=== PATIENT | male | born 1945 | race Hispanic/Latino ===

== ENCOUNTER 2017-11-22 08:07 | Day surgery (SDC) | payer MEDICARE ==
[2017-11-21 08:14] VITALS: BMI 26.4
[2017-11-22] MEDS ORDERED: cefTRIAXone IV 1 gm in Dextros 50 ML IVPB ONE (09:46)
[2017-11-22] MEDS ORDERED: Lidocaine 2% Jelly (Uro-Jet) ONE (09:46)
[2017-11-22] MEDS ORDERED: Midazolam 2 MG/2 ML VIAL ONE (09:52)
[2017-11-22] MEDS ORDERED: Propofol 10 mg/ml Inj (20 ML) ONE ×2 (09:52→10:35)
[2017-11-22] MEDS ORDERED: Iohexol 240 (50 ml) ONE (10:15)
--- NOTE | 2017-11-22 13:52 | RAD ---
PROCEDURE: Intraoperative fluoroscopy HISTORY: URINARY INCONTINENCE/BLADDER NECK CONTRACTION COMPARISON: Not available TECHNIQUE: Intraoperative fluoroscopy was provided for a cystoscopic procedure. Total time of fluoroscopy was 4.6 seconds. FINDINGS: Multiple fluoroscopic spot films are submitted. IMPRESSION: Fluoroscopy provided.
[2017-11-22 15:18] VITALS: BP 132/77; PULSE 96; RESP 15; TEMP 97.6; O2SAT 100
--- NOTE | 2017-11-22 22:11 | OP ---
PROCEDURE DATE: 11/22/2017 PROCEDURE: Cystoscopy, bladder neck incision, insertion of [place] 6-Paraguayan catheter. PREOPERATIVE DIAGNOSES: Urinary incontinence and recurrent urinary tract infections. POSTOPERATIVE DIAGNOSES: Urinary incontinence and recurrent urinary tract infections plus bladder neck contraction and multiple false passages in the prostatic urethra. DESCRIPTION OF PROCEDURE: The patient was placed on the cystoscopy table in the dorsal lithotomy position, prepped and draped in the usual sterile fashion with Betadine solution. Under local and IV sedation, with Dr. Denise approximately 10 mL of 2% Xylocaine jelly were injected intraurethrally, followed by insertion of a #22-Par[place]ayan Storz cystoscope into a phimotic foreskin which was dilated with a curved clamp and followed by insertion of the 22-[place] Storz cystoscope into the urethral meatus, advanced towards the bladder. The anterior urethra was completely normal without stricture formation, foreign bodies or suspicious lesions seen. However, the posterior urethra and prostatic fossa showed multiple false passages indicating most likely prior instrumentation and also most likely what appeared to be a bladder neck contracture and prostatic urethral stricture. A #35 thousandth inch, 150 cm sensor wire was passed into the suspected urethral strictured area, selected from the extensive false passages and this eventually allowed the sensor wire to go into the bladder and coil in the bladder under fluoroscopic control. Next, this area was then opened using the optical urethrotome in the 12 o'clock position to some extent. There was noted to be some increased bleeding at this time and we decided to stop the procedure at this time and a #16 [place] catheter was inserted into the bladder over the sensor wire and the balloon inflated to 10 mL with sterile water. The catheter drained blood-tinged urine well and was thoroughly irrigated with a Joseph syringe without any clots. The patient had actually tolerated the procedure well, with about 20 mL of blood loss and was brought to the recovery area in satisfactory condition. Plan for this patient will be to get a urine culture and sensitivity in the recovery room in about 30 to 40 minutes and then patient can be allowed to be discharged to home without antibiotics at this time. The patient received IV Rocephin during the procedure. The patient will be seen in office followup in about two weeks and will schedule the patient for a eventual removal of the Hawk catheter and a followup cystoscopy. Norman Chiang MD [facility]
== END 2017-11-22 13:05 | disposition home or self-care (01) ==
LOC: C.SDS 08:07
PROVIDERS: ATTEND Urology
DX: N32.0 Bladder-neck obstruction (principal); N39.0 Urinary tract infection, site not specified; R31.9 Hematuria, unspecified; R32 Unspecified urinary incontinence
CPT/HCPCS: 52005; 72HRC; C1769

== ENCOUNTER 2017-11-22 16:48 | Inpatient (IN) | payer MEDICARE, MEDICAID ==
[2017-11-22 16:49] VITALS: BMI 26.4
--- NOTE | 2017-11-22 18:50 | C.PDOC ---
History Of Present Illness 72 y/o male presents to the ED with gross hematuria in his catheter, onset today. [facility] Of note, he had a cystoscopy today done with Dr. Chiang and appears confused. Patient has a pmhx of chronic schizophrenia, heart failure, and kidney disease. PMD: Dr. Hunter - [facility] Time Seen by Provider: 11/22/17 17:16 Chief Complaint (Nursing): Trauma History Per: Patient History/Exam Limitations: clinical condition (schizophrenia) Injury Occurred (Timing): Just Before Arrival Past Medical History Reviewed: Historical Data, Nursing Documentation, Vital Signs Vital Signs: Last Vital Signs Temp 101 F H 11/22/17 20:35 Pulse 100 H 11/22/17 22:45 Resp 20 11/22/17 22:45 BP 100/54 L 11/22/17 22:50 Pulse Ox 100 11/22/17 23:12 - Medical History PMH: Anxiety, Asthma, Benign Prostatic Hyperplasia (bladder problem), Bipolar Disorder, CHF, COPD, Depression, HTN, Hypercholesterolemia, Chronic Kidney Disease (renal insufficiency), Schizophrenia Denies: Diabetes, Hepatitis, Sexually Transmitted Disease Surgical History: Tonsillectomy - [facility] Procedures EXCIS DEBRIDE OF WOUND, INFECT, OR BURN (08/17/14) OCCUPATIONAL THERAPY (08/28/14) PHYSICAL THERAPY NEC (08/28/14) Family History: States: Unknown Family Hx - Social History Hx Tobacco Use: No Hx Alcohol Use: No Hx Substance Use: No - Immunization History Hx Tetanus Toxoid Vaccination: No Hx Influenza Vaccination: No Hx Pneumococcal Vaccination: No Review Of Systems Except As Marked, All Systems Reviewed And Found Negative. Constitutional: Negative for: Fever, Chills Respiratory: Negative for: Shortness of Breath Gastrointestinal: Negative for: Nausea, Vomiting Genitourinary: Positive for: Hematuria Musculoskeletal: Positive for: Other (Fall) Neurological: Positive for: Confusion Physical Exam - Physical Exam Appears: Non-toxic, No Acute Distress Skin: Normal Color, Warm, Dry Head: Atraumatic, Normacephalic Eye(s): bilateral: Normal Inspection, PERRL, EOMI Ear(s): Bilateral: Normal Nose: Normal Oral Mucosa: Moist Tongue: Normal Appearing Lips: Normal Appearing Teeth: Normal Dentition Gingiva: Normal Appearing Throat: Normal Neck: Normal ROM, Supple Chest: Symmetrical Cardiovascular: Rhythm Regular, No Murmur Respiratory: Normal Breath Sounds, No Accessory Muscle Use, Other (No acute respiratory distress) Gastrointestinal/Abdominal: Soft, No Tenderness, No Guarding, Other (Indwelling watts catheter with gross hematuria) Back: Normal Inspection Male Genital: Normal Inspection (indwelling catheter with gross hematuria) Extremity: Bilateral: Atraumatic, Normal ROM (chroinc skin changes consistent with chronic venous stasis with some recent bruising) Neurological/Psych: Oriented x3, Normal Speech Disoriented To: Person Gait: Unable To Assess ED Course And Treatment - Laboratory Results Result Diagrams: 11/22/17 19:09 11/22/17 19:09 O2 Sat by Pulse Oximetry: 100 (RA) Pulse Ox Interpretation: Normal Medical Decision Making Medical Decision Making: Time: 18:21 Initial Plan: --EKG --Pro-BNP --CMP --Troponin I --CBC --PTT --Prothrombin time --Urinalysis Spoke to Андрей, recommends continuous manual irrigation and admission. He will see patient in the hospital tomorrow. Labs reviewed: Troponin is 0.233, WBC 15K, Hemoglobin 14.2, Bicarb 21, LFTs elevated, Bilirubin 6.2 20:03 VBG is being ordered. Patient given fentanyl for pain. VBG demonstrates lactate of 4.3. 21:01 Case discussed w/ Dr. Hunter, patient will be admitted to tele for sepsis, gross hematuria, s/p cystoscopy 21:08 Informed by RN that patient has become hypotensive, blood pressure 80/ 60. Paged manager learning on-call. 21:11 Received call back from Dr. Small, patient is accepted for admission to ICU. Disposition Discussed With : Liborio Hunter Counseled Patient/Family Regarding: Studies Performed, Diagnosis - Disposition Disposition: HOSPITALIZED Disposition Time: 21:01 Condition: SERIOUS - Clinical Impression Clinical Impression: Sepsis, Gross hematuria, S/P cystoscopy Critical Care Time - Critical Care Note Total Time (in mins): 80 Documented critical care: time excludes all time spent performing seperately billable procedures. - Scribe Statement The provider has reviewed the documentation as recorded by the Scribe (Dolores Abbott) Provider Attestation: All medical record entries made by the Scribe were at my direction and personally dictated by me. I have reviewed the chart and agree that the record accurately reflects my personal performance of the history, physical exam, medical decision making, and the department course for this patient. I have also personally directed, reviewed, and agree with the discharge instructions and disposition. Decision To Admit - Pt Status Changed To: Hospital Disposition Of: Inpatient - Admit Certification Admit to Inpatient:: After my assessment, the patient will require hospitalization for at least two midnights. This is because of the severity of symptoms shown, intensity of services needed, and/or the medical risk in this patient being treated as an outpatient. - InPatient: Physician Admission Certification: I certify that this patient requires 2 or more midnights of care for the following reason:: After my assessment, the patient will require hospitalization for at least two midnights. This is because of the severity of symptoms shown, intensity of services needed, and/or the medical risk in this patient being treated as an outpatient. - . Bed Request Type: ICU Admitting Physician: Liborio Hunter Patient Diagnosis: Sepsis, Gross hematuria, S/P cystoscopy
[2017-11-22 19:13] LABS: BASO % 0.2 % (0.0-2.0); EOS % 0.1 % (0.0-4.0); HEMOGLOBIN 14.2 g/dL (12.0-18.0); LYMPH # 0.1 K/uL (1.0-4.3); LYMPH % 0.7 % (20.0-40.0); MEAN CELL VOLUME 90.3 fL (80.0-94.0); MEAN CORPUSCULAR HEMOGLOBIN 30.4 pg (27.0-31.0); MEAN CORPUSCULAR HGB CONC 33.7 g/dL (33.0-37.0); MEAN PLATELET VOLUME 9.6 fL (7.2-11.7); MONO # 0.1 K/uL (0.0-0.8); MONO % 0.5 % (0.0-10.0); NEUT # 14.8 K/uL (1.8-7.0); NEUT % 98.5 % (50.0-75.0); NRBC % 0.2 % (0.0-2.0); RBC 4.67 Mil/uL (4.40-5.90); RED CELL DISTRIBUTION WIDTH 14.1 % (11.5-14.5)
[2017-11-22 19:21] LABS: PLATELET COUNT 85 K/uL (130-400)
[2017-11-22 19:23] LABS: INR 1.7; PROTHROMBIN TIME 18.9 SECONDS (9.7-12.2)
[2017-11-22 19:25] LABS: CALCIUM 8.6 mg/dl (8.6-10.4)
[2017-11-22 19:40] LABS: TROPONIN I 0.233 ng/mL (0.00-0.120)
[2017-11-22] MEDS ORDERED: Sodium Chloride 0.9% 500 ML IV ONE ×2 (19:44→19:45)
[2017-11-22 19:53] LABS: BANDS 23 % (0-2); EOSINOPHIL 1 % (0-4); LYMPHOCYTE 1 % (20-40); METAMYELOCYTE 8 % (0-0); MONOCYTE 2 % (0-10); MYELOCYTE 5 % (0-0); NEUTROPHIL 60 % (50-75); PLATELET ESTIMATE DECREASED (NORMAL); TOTAL CELLS COUNTED 100
[2017-11-22] MEDS ORDERED: Vancomycin 1 gm/NS 200 ml 1 GM/200 ML BAG IVPB STA (20:15)
[2017-11-22] MEDS ORDERED: Cefepime IV 2 gm in Dextrose 2 GM/100 ML BAG IVPB STA (20:15)
[2017-11-22 20:26] LABS: VENOUS BLOOD GAS BASE EXCESS -5.6 mmol/L (0.0-2.0); VENOUS BLOOD GAS PCO2 35 mmHg (40-60); VENOUS BLOOD GAS PO2 19 mm/Hg (30-55); VENOUS BLOOD PH 7.35 (7.32-7.43)
[2017-11-22] MEDS ORDERED: Sodium Chloride 0.9% 1,000 ML IV ONE ×2 (20:39→22:43)
[2017-11-22 21:16] LABS: URINE BACTERIA FEW (<OCC); URINE BILIRUBIN NEGATIVE (NEGATIVE); URINE BLOOD 3+ (NEGATIVE); URINE CLARITY Hazy (Clear); URINE COLOR Red (YELLOW); URINE GLUCOSE (UA) NORMAL (Normal); URINE LEUKOCYTE ESTERASE 1+ Leu/uL (Negative); URINE PROTEIN 2+ mg/dL (NEGATIVE); URINE UROBILINOGEN NORMAL mg/dL (0.2-1.0)
[2017-11-22] MEDS ORDERED: Sodium Chloride 0.9% 1,000 ML ONE (21:41)
--- NOTE | 2017-11-22 23:00 | CP.PCM.CON ---
History of Present Illness - History of Present Illness History of Present Illness: 72 y/o male with h/o Asthma, Benign Prostatic Hyperplasia Bipolar Disorder, CHF , COPD, Depression, HTN, Hypercholesterolemia, Schizophrenia presents to the ED following fall at [facility]. patient had a cystoscopy today done with Dr. Cihang In ER he was given fentanyl for pain,later found to be hypotensive ,febrile with elevated lactic acid,troponin levels and leucocytosis with bandemia patient is confused unable to review of symptoms Past Patient History - Infectious Disease Hx of Infectious Diseases: None - Tetanus Immunizations Tetanus Immunization: Unknown - Past Medical History & Family History Past Medical History?: Yes - Past Social History Smoking Status: Unknown If Ever Smoked - CARDIAC Hx Congestive Heart Failure: Yes Hx Hypercholesterolemia: Yes Hx Hypertension: Yes - PULMONARY Hx Asthma: Yes Hx Chronic Obstructive Pulmonary Disease (COPD): Yes - HEENT Hx HEENT Problems: Yes Hx Cataracts: Yes - RENAL Hx Chronic Kidney Disease: Yes (renal insufficiency) - INTEGUMENTARY Hx Dermatological Problems: No - GASTROINTESTINAL Hx Gastrointestinal Disorders: No - GENITOURINARY/GYNECOLOGICAL Hx Sexually Transmitted Disorders: No - PSYCHIATRIC Hx Anxiety: Yes Hx Bipolar Disorder: Yes Hx Depression: Yes Hx Schizophrenia: Yes Hx Substance Use: No - SURGICAL HISTORY Hx Tonsillectomy: Yes - ANESTHESIA Hx Anesthesia: Yes Hx Anesthesia Reactions: No Hx Malignant Hyperthermia: No Meds Allergies/Adverse Reactions: Allergies Allergy/AdvReac Type Severity Reaction Status Date / Time No Known Allergies Allergy Verified 11/22/17 17:13 - Medications Medications: Current Medications Sodium Chloride (Sodium Chloride 0.9%) 1,000 mls @ 1,000 mls/hr IV .Q1H ONE Stop: 11/22/17 23:42 Last Admin: 11/22/17 22:50 Dose: 1,000 mls/hr Physical Exam - Constitutional Appears: No Acute Distress, Confused - Head Exam Head Exam: ATRAUMATIC, NORMAL INSPECTION, NORMOCEPHALIC - Eye Exam Eye Exam: PERRL - ENT Exam ENT Exam: Mucous Membranes Dry - Neck Exam Neck exam: Positive for: Normal Inspection - Respiratory Exam Respiratory Exam: Clear to Auscultation Bilateral, NORMAL BREATHING PATTERN - Cardiovascular Exam Cardiovascular Exam: REGULAR RHYTHM. absent: JVD - GI/Abdominal Exam GI & Abdominal Exam: Normal Bowel Sounds, Soft. absent: Tenderness - Extremities Exam Extremities exam: Positive for: normal inspection, pedal edema Additional comments: bilateral leg edema with chronic changes - Neurological Exam Neurological exam: Alert - Skin Skin Exam: Dry, Normal Color, Warm Results - Vital Signs Recent Vital Signs: Last Vital Signs Temp 101 F H 11/22/17 20:35 Pulse 113 H 11/22/17 21:53 Resp 18 11/22/17 21:53 BP 105/56 L 11/22/17 21:53 Pulse Ox 97 11/22/17 21:53 - Labs Result Diagrams: 11/22/17 19:09 11/22/17 19:09 Labs: Laboratory Results - last 24 hr 11/22/17 11/22/17 11/22/17 19:09 19:09 19:09 WBC 15.0 H D RBC 4.67 Hgb 14.2 Hct 42.2 MCV 90.3 D MCH 30.4 MCHC 33.7 RDW 14.1 Plt Count 85 L D MPV 9.6 Neut % (Auto) 98.5 H Lymph % (Auto) 0.7 L [place] % (Auto) 0.5 Eos % (Auto) 0.1 Baso % (Auto) 0.2 Neut # (Auto) 14.8 H Lymph # (Auto) 0.1 L [place] # (Auto) 0.1 Eos # (Auto) 0.0 Baso # (Auto) 0.0 Neutrophils % (Manual) 60 Band Neutrophils % 23 H* Lymphocytes % (Manual) 1 L Monocytes % (Manual) 2 Eosinophils % (Manual) 1 Metamyelocytes % 8 H Myelocytes % 5 H Platelet Estimate Decreased L ESR PT 18.9 H INR 1.7 APTT 45 H pO2 VBG pH VBG pCO2 VBG HCO3 VBG Total CO2 VBG O2 Sat (Calc) VBG Base Excess VBG Potassium Glucose Lactate Crit Value Called To Crit Value Called By Crit Value Read Back Blood Gas Notified Time Sodium 140 Potassium 4.1 Chloride 106 Carbon Dioxide 21 L Anion Gap 18 BUN 33 H Creatinine 1.5 Est GFR ( Amer) 56 Est GFR (Non-Af Amer) 46 Random Glucose 52 L Calcium 8.6 Magnesium Total Bilirubin 6.2 H AST 342 H ALT 125 H D Alkaline Phosphatase 86 Troponin I 0.2330 H* C-React Prot High Sens NT-Pro-B Natriuret Pep 3380 H Total Protein 5.9 L Albumin 3.0 L D Globulin 2.9 Albumin/Globulin Ratio 1.0 Procalcitonin Venous Blood Potassium Urine Color Urine Clarity Urine pH Ur Specific [place] Urine Protein Urine Glucose (UA) Urine Ketones Urine Blood Urine Nitrate Urine Bilirubin Urine Urobilinogen Ur Leukocyte Esterase Urine WBC (Auto) Urine RBC (Auto) Urine Bacteria 11/22/17 11/22/17 11/22/17 20:22 20:32 20:32 WBC RBC Hgb Hct MCV MCH MCHC RDW Plt Count MPV Neut % (Auto) Lymph % (Auto) [place] % (Auto) Eos % (Auto) Baso % (Auto) Neut # (Auto) Lymph # (Auto) [place] # (Auto) Eos # (Auto) Baso # (Auto) Neutrophils % (Manual) Band Neutrophils % Lymphocytes % (Manual) Monocytes % (Manual) Eosinophils % (Manual) Metamyelocytes % Myelocytes % Platelet Estimate ESR 2 PT INR APTT pO2 19 L VBG pH 7.35 VBG pCO2 35 L VBG HCO3 18.6 VBG Total CO2 20.4 L VBG O2 Sat (Calc) 40.6 VBG Base Excess -5.6 L VBG Potassium 3.4 L Glucose 54 L Lactate 4.3 H* Crit Value Called To Annabella betts rn Crit Value Called By [place] Crit Value Read Back Y Blood Gas Notified Time 2024 Sodium 141.0 Potassium Chloride 111.0 H Carbon Dioxide Anion Gap BUN Creatinine Est GFR ( Amer) Est GFR (Non-Af Amer) Random Glucose Calcium Magnesium Total Bilirubin AST ALT Alkaline Phosphatase Troponin I C-React Prot High Sens NT-Pro-B Natriuret Pep Total Protein Albumin Globulin Albumin/Globulin Ratio Procalcitonin 137.36 H Venous Blood Potassium 3.4 L Urine Color Urine Clarity Urine pH Ur Specific [place] Urine Protein Urine Glucose (UA) Urine Ketones Urine Blood Urine Nitrate Urine Bilirubin Urine Urobilinogen Ur Leukocyte Esterase Urine WBC (Auto) Urine RBC (Auto) Urine Bacteria 11/22/17 11/22/17 11/22/17 20:32 20:32 20:42 WBC RBC Hgb Hct MCV MCH MCHC RDW Plt Count MPV Neut % (Auto) Lymph % (Auto) [place] % (Auto) Eos % (Auto) Baso % (Auto) Neut # (Auto) Lymph # (Auto) [place] # (Auto) Eos # (Auto) Baso # (Auto) Neutrophils % (Manual) Band Neutrophils % Lymphocytes % (Manual) Monocytes % (Manual) Eosinophils % (Manual) Metamyelocytes % Myelocytes % Platelet Estimate ESR PT INR APTT pO2 VBG pH VBG pCO2 VBG HCO3 VBG Total CO2 VBG O2 Sat (Calc) VBG Base Excess VBG Potassium Glucose Lactate Crit Value Called To Crit Value Called By Crit Value Read Back Blood Gas Notified Time Sodium Potassium Chloride Carbon Dioxide Anion Gap BUN Creatinine Est GFR ( Amer) Est GFR (Non-Af Amer) Random Glucose Calcium Magnesium 1.8 Total Bilirubin AST ALT Alkaline Phosphatase Troponin I C-React Prot High Sens > 15.00 H NT-Pro-B Natriuret Pep Total Protein Albumin Globulin Albumin/Globulin Ratio Procalcitonin Venous Blood Potassium Urine Color Red Urine Clarity Hazy Urine pH 5.0 Ur Specific [place] 1.016 Urine Protein 2+ H Urine Glucose (UA) Normal Urine Ketones Trace Urine Blood 3+ H Urine Nitrate Negative Urine Bilirubin Negative Urine Urobilinogen Normal Ur Leukocyte Esterase 1+ H Urine WBC (Auto) 33 H Urine RBC (Auto) 3819 H Urine Bacteria Few H - Imaging and Cardiology Chest x-ray Status: Image reviewed by me Assessment & Plan - Assessment and Plan (Free Text) Assessment: 1.Sepsis-Eitiology s/p cystoscopy today cultures antibiotics IVF 2.H/o HTN 3.Hematuria s/p cystoscopy today 4.Elevated Troponin ?due to hypotension ?VT BP low ,hematuria-no beta blockers,asa 5.Schizoaffective disorder
[2017-11-22] MEDS ORDERED: Sodium Chloride 0.9% 1,000 ML IV SCH ×2 (23:30→23:45)
[2017-11-22] MEDS ORDERED: Piperacillin/Tazobact 3.375 GM in Sodium Chloride 100 ML IVPB SCH (23:45)
[2017-11-23 00:51] LABS: VENOUS BLOOD GAS BASE EXCESS -10.2 mmol/L (0.0-2.0); VENOUS BLOOD GAS PCO2 33 mmHg (40-60); VENOUS BLOOD GAS PO2 19 mm/Hg (30-55); VENOUS BLOOD PH 7.28 (7.32-7.43)
--- NOTE | 2017-11-23 01:35 | PCM.SEPTIC ---
Sepsis Progress Note - Reassessment Type Reassessment Type: Non-invasive reassessment - Non Invasive Reassessment Were the most recent vital sign reviewed: Yes Vital Sign (Latest): Temp Pulse Resp BP Pulse Ox 101.5 F H 116 H 20 105/42 L 97 11/23/17 00:47 11/23/17 00:47 11/23/17 00:47 11/23/17 00:47 11/22/17 23:44 Cardiovascular: Yes: Regular Rate, Rhythm. No: Chest Non Tender, JVD, Tachycardia Respiratory: Yes: Normal Breath Sounds Capillary Refill: Normal (Less than 2 sec) Pulses: Normal Radial Skin: Normal Color, Warm
--- NOTE | 2017-11-23 02:15 | CT ---
EXAM: CT Head Without Intravenous Contrast CLINICAL HISTORY: 72 years old, male; Signs and symptoms; Altered mental status/memory loss; Confusion or disorientation TECHNIQUE: Axial computed tomography images of the head/brain without intravenous contrast. All CT scans at this facility use one or more dose reduction techniques, viz.: automated exposure control; ma/kV adjustment per patient size (including targeted exams where dose is matched to indication; i.e. head); or iterative reconstruction technique. Coronal and sagittal reformatted images were created and reviewed. COMPARISON: No relevant prior studies available. FINDINGS: Limitations: Motion artifact - mild. Brain: [id number] atrophy. No definite intracranial hemorrhage. No definite mass. Several scattered foci of decreased attenuation within periventricular/subcortical white matter, more pronounced and focal with left frontal region. Grossly preserved james-white matter differentiation. Ventricles: No hydrocephalus. Bones/joints: No acute fracture. Soft tissues: Unremarkable. Sinuses: Near complete opacification/large retention cyst of right maxillary sinus. Moderate mucosal thickening/retention cysts of left maxillary sinus. Scattered [id number] mucosal thickening of ethmoid, left frontal sinuses. Scattered minimal to mild mucosal thickening of right frontal, right sphenoid sinuses. Mastoid air cells: No mastoid effusion. IMPRESSION: 1. Nonspecific white matter changes. Cannot exclude vasogenic edema within left frontal region. Recommend MRI. 2. Sinus disease. 3. Incidental/non-acute findings are described above.
[2017-11-23] MEDS ORDERED: Sodium Chloride 0.9% 500 ML IV ONE (02:52)
[2017-11-23] MEDS ORDERED: Dextrose 50% SYRINGE Inj (50 ml) IV STA ×2 (03:56→18:25)
[2017-11-23] MEDS: Dextrose 50% SYRINGE Inj (50 ml) ONE ×2 (03:59)
[2017-11-23 07:04] LABS: BASO % 0.1 % (0.0-2.0); HEMOGLOBIN 13.3 g/dL (12.0-18.0); LYMPH # 0.2 K/uL (1.0-4.3); LYMPH % 0.5 % (20.0-40.0); MEAN CELL VOLUME 90.5 fL (80.0-94.0); MEAN CORPUSCULAR HEMOGLOBIN 30.3 pg (27.0-31.0); MEAN CORPUSCULAR HGB CONC 33.5 g/dL (33.0-37.0); MEAN PLATELET VOLUME 11.2 fL (7.2-11.7); MONO # 1.5 K/uL (0.0-0.8); MONO % 4.6 % (0.0-10.0); NEUT # 31.5 K/uL (1.8-7.0); NEUT % 94.8 % (50.0-75.0); NRBC % 0.1 % (0.0-2.0); PLATELET COUNT 83 K/uL (130-400); RED CELL DISTRIBUTION WIDTH 14.5 % (11.5-14.5); WHITE BLOOD COUNT 33.2 K/uL (4.8-10.8)
[2017-11-23 07:26] LABS: ALB/GLOB RATIO 0.9 (1.0-2.1); ALBUMIN 2.8 g/dL (3.5-5.0); CALCIUM 7.8 mg/dl (8.6-10.4)
[2017-11-23 07:43] LABS: TROPONIN I 0.316 ng/mL (0.00-0.120)
--- NOTE | 2017-11-23 08:08 | RAD ---
HISTORY: Sepsis Patient COMPARISON: Chest x-ray 09/07/2014 TECHNIQUE: Chest one view . FINDINGS: LUNGS: Mild pulmonary vascular congestion. Stable elevation left hemidiaphragm. Mild bibasilar atelectasis. PLEURA: No pleural effusion is identified. CARDIOVASCULAR: Heart size is within normal limits. OSSEOUS STRUCTURES: Degenerative changes noted of the spine. VISUALIZED UPPER ABDOMEN: Unremarkable. OTHER FINDINGS: None. IMPRESSION: Mild pulmonary vascular congestion. Mild bibasilar atelectasis.
[2017-11-23] MEDS: (Novolin R) Insulin Human Regular 100 units/ml vial SC SCH ×4 (08:40→22:21)
[2017-11-23] MEDS ORDERED: Dextrose 50% SYRINGE Inj (50 ml) IV PRN (08:46)
[2017-11-23] MEDS ORDERED: Vancomycin 1 gm/NS 200 ml 1 GM/200 ML BAG IVPB SCH (09:00)
[2017-11-23 09:22] LABS: BANDS 21 % (0-2); MONOCYTE 5 % (0-10); NEUTROPHIL 74 % (50-75); TOTAL CELLS COUNTED 100
[2017-11-23 09:23] LABS: PLATELET ESTIMATE DECREASED (NORMAL)
[2017-11-23] MEDS ORDERED: Dextrose 5%/0.9% NS 1,000 ML IV SCH (09:30)
[2017-11-23] MEDS: Pantoprazole 40 mg EC Tab PO SCH (09:47)
[2017-11-23] MEDS ORDERED: Enoxaparin 40 mg Syringe SC SCH (10:00)
[2017-11-23] MEDS ORDERED: Vancomycin 1 GM 1 GM/250 ML BAG IVPB SCH (11:00)
--- NOTE | 2017-11-23 11:32 | CP.PCM.CON ---
History of Present Illness - History of Present Illness History of Present Illness: 72 yo male patient with PMHx of Asthma, Benign Prostatic Hyperplasia Bipolar Disorder, CHF, COPD, Depression, HTN, Hypercholesterolemia, Schizophrenia was seen at bedside this AM with attending Dr. Jaimes concerning Left foot 2nd digit traumatic nail avulsion and elongated mycotic toenails x9. Patient was resting comfortably in bed woth CPAP, unable to communicate. Podiatry plan to revisit with nail nipper for toenail debridement. Past Patient History - Infectious Disease Hx of Infectious Diseases: None - Tetanus Immunizations Tetanus Immunization: Unknown - Past Medical History & Family History Past Medical History?: Yes - Past Social History Smoking Status: Unknown If Ever Smoked - CARDIAC Hx Congestive Heart Failure: Yes Hx Hypercholesterolemia: Yes Hx Hypertension: Yes - PULMONARY Hx Asthma: Yes Hx Chronic Obstructive Pulmonary Disease (COPD): Yes - HEENT Hx HEENT Problems: Yes Hx Cataracts: Yes - RENAL Hx Chronic Kidney Disease: Yes (renal insufficiency) - INTEGUMENTARY Hx Dermatological Problems: No - GASTROINTESTINAL Hx Gastrointestinal Disorders: No - GENITOURINARY/GYNECOLOGICAL Hx Sexually Transmitted Disorders: No - PSYCHIATRIC Hx Anxiety: Yes Hx Bipolar Disorder: Yes Hx Depression: Yes Hx Schizophrenia: Yes Hx Substance Use: No - SURGICAL HISTORY Hx Tonsillectomy: Yes - ANESTHESIA Hx Anesthesia: Yes Hx Anesthesia Reactions: No Hx Malignant Hyperthermia: No Meds Allergies/Adverse Reactions: Allergies Allergy/AdvReac Type Severity Reaction Status Date / Time No Known Allergies Allergy Verified 11/22/17 17:13 - Medications Medications: Current Medications Acetaminophen (Tylenol 325mg Tab) 650 mg PO Q6 PRN PRN Reason: Fever >100.4 F Last Admin: 11/23/17 00:18 Dose: 650 mg Dextrose (Dextrose 50% Inj) 50 ml IV ACHS PRN PRN Reason: Hypoglycemia Last Admin: 11/23/17 08:55 Dose: 50 ml Vancomycin HCl 1.25 gm/ Sodium (Chloride) 250 mls @ 166.667 mls/hr IVPB Q24H GHANSHYAM PRN Reason: Protocol Last Admin: 11/23/17 09:35 Dose: 166.667 mls/hr Dextrose/Sodium Chloride (Dextrose 5%/0.9% Ns 1000 Ml) 1,000 mls @ 100 mls/hr IV .Q10H GHANSHYAM Last Admin: 11/23/17 09:47 Dose: 100 mls/hr Meropenem 500 mg/ Sodium (Chloride) 100 mls @ 100 mls/hr IVPB Q12H GHANSHYAM PRN Reason: Protocol Insulin Human Regular (Novolin R) 0 unit SC ACHS GHANSHYAM PRN Reason: Protocol Last Admin: 11/23/17 08:40 Dose: Not Given Lorazepam (Ativan) 1 mg IVP Q6H PRN PRN Reason: Anxiety Mirtazapine (Remeron) 15 mg PO QPM [facility] Pantoprazole Sodium (Protonix Ec Tab) 40 mg PO DAILY [facility] Last Admin: 11/23/17 09:47 Dose: 40 mg Tamsulosin HCl (Flomax) 0.8 mg PO DAILY [facility] Last Admin: 11/23/17 09:47 Dose: 0.8 mg Valproate Sodium (Depakene Cap) 250 mg PO BID [facility] Last Admin: 11/23/17 09:47 Dose: 250 mg Physical Exam - Constitutional Appears: Well, Non-toxic, No Acute Distress - Head Exam Head Exam: ATRAUMATIC - Extremities Exam Additional comments: Left lower extremity exam DERM: Open wound noted to Left foot 2nd digit secondary to traumatic nail avulsion. No active bleeding noted. No pus noted. No drainage noted. No sign of acute infection is noted. No mal-odor noted. No PTB. Nail bed wound measures 1cm x 1xm 0.4cm with granular base VASC: Palpable DP and PT at 2/4, [employer] ATTENDANT less than 3 seconds to all digits - Neurological Exam Neurological exam: Alert, Oriented x3 - Psychiatric Exam Psychiatric exam: Normal Affect, Normal Mood - Skin Skin Exam: Normal Color, Warm Results - Vital Signs Recent Vital Signs: Last Vital Signs Temp 97.5 F L 11/23/17 08:00 Pulse 85 11/23/17 11:00 Resp 19 11/23/17 11:00 BP 126/87 11/23/17 10:30 Pulse Ox 98 11/23/17 11:00 - Labs Result Diagrams: 11/23/17 07:01 11/23/17 07:01 Labs: Laboratory Results - last 24 hr 11/22/17 11/22/17 11/22/17 00:45 19:09 19:09 WBC 15.0 H D RBC 4.67 Hgb 14.2 Hct 42.2 MCV 90.3 D MCH 30.4 MCHC 33.7 RDW 14.1 Plt Count 85 L D MPV 9.6 Neut % (Auto) 98.5 H Lymph % (Auto) 0.7 L Bailey % (Auto) 0.5 Eos % (Auto) 0.1 Baso % (Auto) 0.2 Neut # (Auto) 14.8 H Lymph # (Auto) 0.1 L Bailey # (Auto) 0.1 Eos # (Auto) 0.0 Baso # (Auto) 0.0 Neutrophils % (Manual) 60 Band Neutrophils % 23 H* Lymphocytes % (Manual) 1 L Monocytes % (Manual) 2 Eosinophils % (Manual) 1 Metamyelocytes % 8 H Myelocytes % 5 H Platelet Estimate Decreased L RBC Morphology ESR PT 18.9 H INR 1.7 APTT 45 H pO2 19 L VBG pH 7.28 L VBG pCO2 33 L VBG HCO3 14.9 VBG Total CO2 16.5 L VBG O2 Sat (Calc) 33.7 L VBG Base Excess -10.2 L VBG Potassium 3.1 L Sodium 143.0 Chloride 115.0 H Glucose 49 L Lactate 3.7 H Crit Value Called To Crit Value Called By Crit Value Read Back Blood Gas Notified Time Potassium Carbon Dioxide Anion Gap BUN Creatinine Est GFR ( Amer) Est GFR (Non-Af Amer) POC Glucose (mg/dL) Random Glucose Lactic Acid Calcium Phosphorus Magnesium Total Bilirubin AST ALT Alkaline Phosphatase Troponin I C-React Prot High Sens NT-Pro-B Natriuret Pep Total Protein Albumin Globulin Albumin/Globulin Ratio Procalcitonin Venous Blood Potassium 3.1 L Urine Color Urine Clarity Urine pH Ur Specific [place] Urine Protein Urine Glucose (UA) Urine Ketones Urine Blood Urine Nitrate Urine Bilirubin Urine Urobilinogen Ur Leukocyte Esterase Urine WBC (Auto) Urine RBC (Auto) Urine Bacteria 11/22/17 11/22/17 11/22/17 19:09 20:22 20:32 WBC RBC Hgb Hct MCV MCH MCHC RDW Plt Count MPV Neut % (Auto) Lymph % (Auto) Bailey % (Auto) Eos % (Auto) Baso % (Auto) Neut # (Auto) Lymph # (Auto) Bailey # (Auto) Eos # (Auto) Baso # (Auto) Neutrophils % (Manual) Band Neutrophils % Lymphocytes % (Manual) Monocytes % (Manual) Eosinophils % (Manual) Metamyelocytes % Myelocytes % Platelet Estimate RBC Morphology ESR 2 PT INR APTT pO2 19 L VBG pH 7.35 VBG pCO2 35 L VBG HCO3 18.6 VBG Total CO2 20.4 L VBG O2 Sat (Calc) 40.6 VBG Base Excess -5.6 L VBG Potassium 3.4 L Sodium 140 141.0 Chloride 106 111.0 H Glucose 54 L Lactate 4.3 H* Crit Value Called To Annabella betts rn Crit Value Called By Lendl Crit Value Read Back Y Blood Gas Notified Time 2024 Potassium 4.1 Carbon Dioxide 21 L Anion Gap 18 BUN 33 H Creatinine 1.5 Est GFR ( Amer) 56 Est GFR (Non-Af Amer) 46 POC Glucose (mg/dL) Random Glucose 52 L Lactic Acid Calcium 8.6 Phosphorus Magnesium Total Bilirubin 6.2 H AST 342 H ALT 125 H D Alkaline Phosphatase 86 Troponin I 0.2330 H* C-React Prot High Sens NT-Pro-B Natriuret Pep 3380 H Total Protein 5.9 L Albumin 3.0 L D Globulin 2.9 Albumin/Globulin Ratio 1.0 Procalcitonin Venous Blood Potassium 3.4 L Urine Color Urine Clarity Urine pH Ur Specific [place] Urine Protein Urine Glucose (UA) Urine Ketones Urine Blood Urine Nitrate Urine Bilirubin Urine Urobilinogen Ur Leukocyte Esterase Urine WBC (Auto) Urine RBC (Auto) Urine Bacteria 11/22/17 11/22/17 11/22/17 20:32 20:32 20:32 WBC RBC Hgb Hct MCV MCH MCHC RDW Plt Count MPV Neut % (Auto) Lymph % (Auto) Bailey % (Auto) Eos % (Auto) Baso % (Auto) Neut # (Auto) Lymph # (Auto) Bailey # (Auto) Eos # (Auto) Baso # (Auto) Neutrophils % (Manual) Band Neutrophils % Lymphocytes % (Manual) Monocytes % (Manual) Eosinophils % (Manual) Metamyelocytes % Myelocytes % Platelet Estimate RBC Morphology ESR PT INR APTT pO2 VBG pH VBG pCO2 VBG HCO3 VBG Total CO2 VBG O2 Sat (Calc) VBG Base Excess VBG Potassium Sodium Chloride Glucose Lactate Crit Value Called To Crit Value Called By Crit Value Read Back Blood Gas Notified Time Potassium Carbon Dioxide Anion Gap BUN Creatinine Est GFR ( Amer) Est GFR (Non-Af Amer) POC Glucose (mg/dL) Random Glucose Lactic Acid Calcium Phosphorus Magnesium 1.8 Total Bilirubin AST ALT Alkaline Phosphatase Troponin I C-React Prot High Sens > 15.00 H NT-Pro-B Natriuret Pep Total Protein Albumin Globulin Albumin/Globulin Ratio Procalcitonin 137.36 H Venous Blood Potassium Urine Color Urine Clarity Urine pH Ur Specific [place] Urine Protein Urine Glucose (UA) Urine Ketones Urine Blood Urine Nitrate Urine Bilirubin Urine Urobilinogen Ur Leukocyte Esterase Urine WBC (Auto) Urine RBC (Auto) Urine Bacteria 11/22/17 11/23/17 11/23/17 20:42 03:54 04:16 WBC RBC Hgb Hct MCV MCH MCHC RDW Plt Count MPV Neut % (Auto) Lymph % (Auto) Bailey % (Auto) Eos % (Auto) Baso % (Auto) Neut # (Auto) Lymph # (Auto) Bailey # (Auto) Eos # (Auto) Baso # (Auto) Neutrophils % (Manual) Band Neutrophils % Lymphocytes % (Manual) Monocytes % (Manual) Eosinophils % (Manual) Metamyelocytes % Myelocytes % Platelet Estimate RBC Morphology ESR PT INR APTT pO2 VBG pH VBG pCO2 VBG HCO3 VBG Total CO2 VBG O2 Sat (Calc) VBG Base Excess VBG Potassium Sodium Chloride Glucose Lactate Crit Value Called To Crit Value Called By Crit Value Read Back Blood Gas Notified Time Potassium Carbon Dioxide Anion Gap BUN Creatinine Est GFR ( Amer) Est GFR (Non-Af Amer) POC Glucose (mg/dL) 49 L 108 Random Glucose Lactic Acid Calcium Phosphorus Magnesium Total Bilirubin AST ALT Alkaline Phosphatase Troponin I C-React Prot High Sens NT-Pro-B Natriuret Pep Total Protein Albumin Globulin Albumin/Globulin Ratio Procalcitonin Venous Blood Potassium Urine Color Red Urine Clarity Hazy Urine pH 5.0 Ur Specific [place] 1.016 Urine Protein 2+ H Urine Glucose (UA) Normal Urine Ketones Trace Urine Blood 3+ H Urine Nitrate Negative Urine Bilirubin Negative Urine Urobilinogen Normal Ur Leukocyte Esterase 1+ H Urine WBC (Auto) 33 H Urine RBC (Auto) 3819 H Urine Bacteria Few H 11/23/17 11/23/17 11/23/17 05:48 07:01 07:01 WBC 33.2 H D RBC 4.40 Hgb 13.3 Hct 39.8 MCV 90.5 MCH 30.3 MCHC 33.5 RDW 14.5 Plt Count 83 L MPV 11.2 Neut % (Auto) 94.8 H Lymph % (Auto) 0.5 L Bailey % (Auto) 4.6 Eos % (Auto) 0.0 Baso % (Auto) 0.1 Neut # (Auto) 31.5 H Lymph # (Auto) 0.2 L Bailey # (Auto) 1.5 H Eos # (Auto) 0.0 Baso # (Auto) 0.0 Neutrophils % (Manual) 74 Band Neutrophils % 21 H* Lymphocytes % (Manual) TEST NOT PERFORMED Monocytes % (Manual) 5 Eosinophils % (Manual) Metamyelocytes % Myelocytes % Platelet Estimate Decreased L RBC Morphology Normal ESR PT INR APTT pO2 VBG pH VBG pCO2 VBG HCO3 VBG Total CO2 VBG O2 Sat (Calc) VBG Base Excess VBG Potassium Sodium 142 Chloride 111 H Glucose Lactate Crit Value Called To Crit Value Called By Crit Value Read Back Blood Gas Notified Time Potassium 4.0 Carbon Dioxide 16 L Anion Gap 18 BUN 37 H Creatinine 1.8 H Est GFR ( Amer) 45 Est GFR (Non-Af Amer) 37 POC Glucose (mg/dL) 85 Random Glucose 62 L Lactic Acid Calcium 7.8 L Phosphorus 2.8 Magnesium 1.6 Total Bilirubin 2.2 H AST 401 H ALT 134 H Alkaline Phosphatase 65 Troponin I 0.3160 H* C-React Prot High Sens NT-Pro-B Natriuret Pep Total Protein 5.8 L Albumin 2.8 L Globulin 3.1 Albumin/Globulin Ratio 0.9 L Procalcitonin Venous Blood Potassium Urine Color Urine Clarity Urine pH Ur Specific [place] Urine Protein Urine Glucose (UA) Urine Ketones Urine Blood Urine Nitrate Urine Bilirubin Urine Urobilinogen Ur Leukocyte Esterase Urine WBC (Auto) Urine RBC (Auto) Urine Bacteria 11/23/17 11/23/17 11/23/17 07:01 08:42 08:44 WBC RBC Hgb Hct MCV MCH MCHC RDW Plt Count MPV Neut % (Auto) Lymph % (Auto) Bailey % (Auto) Eos % (Auto) Baso % (Auto) Neut # (Auto) Lymph # (Auto) Bailey # (Auto) Eos # (Auto) Baso # (Auto) Neutrophils % (Manual) Band Neutrophils % Lymphocytes % (Manual) Monocytes % (Manual) Eosinophils % (Manual) Metamyelocytes % Myelocytes % Platelet Estimate RBC Morphology ESR PT INR APTT pO2 VBG pH VBG pCO2 VBG HCO3 VBG Total CO2 VBG O2 Sat (Calc) VBG Base Excess VBG Potassium Sodium Chloride Glucose Lactate Crit Value Called To Crit Value Called By Crit Value Read Back Blood Gas Notified Time Potassium Carbon Dioxide Anion Gap BUN Creatinine Est GFR ( Amer) Est GFR (Non-Af Amer) POC Glucose (mg/dL) 58 L 56 L Random Glucose Lactic Acid 5.0 H* Calcium Phosphorus Magnesium Total Bilirubin AST ALT Alkaline Phosphatase Troponin I C-React Prot High Sens NT-Pro-B Natriuret Pep Total Protein Albumin Globulin Albumin/Globulin Ratio Procalcitonin Venous Blood Potassium Urine Color Urine Clarity Urine pH Ur Specific [place] Urine Protein Urine Glucose (UA) Urine Ketones Urine Blood Urine Nitrate Urine Bilirubin Urine Urobilinogen Ur Leukocyte Esterase Urine WBC (Auto) Urine RBC (Auto) Urine Bacteria 11/23/17 09:13 WBC RBC Hgb Hct MCV MCH MCHC RDW Plt Count MPV Neut % (Auto) Lymph % (Auto) Bailey % (Auto) Eos % (Auto) Baso % (Auto) Neut # (Auto) Lymph # (Auto) Bailey # (Auto) Eos # (Auto) Baso # (Auto) Neutrophils % (Manual) Band Neutrophils % Lymphocytes % (Manual) Monocytes % (Manual) Eosinophils % (Manual) Metamyelocytes % Myelocytes % Platelet Estimate RBC Morphology ESR PT INR APTT pO2 VBG pH VBG pCO2 VBG HCO3 VBG Total CO2 VBG O2 Sat (Calc) VBG Base Excess VBG Potassium Sodium Chloride Glucose Lactate Crit Value Called To Crit Value Called By Crit Value Read Back Blood Gas Notified Time Potassium Carbon Dioxide Anion Gap BUN Creatinine Est GFR ( Amer) Est GFR (Non-Af Amer) POC Glucose (mg/dL) 136 H Random Glucose Lactic Acid Calcium Phosphorus Magnesium Total Bilirubin AST ALT Alkaline Phosphatase Troponin I C-React Prot High Sens NT-Pro-B Natriuret Pep Total Protein Albumin Globulin Albumin/Globulin Ratio Procalcitonin Venous Blood Potassium Urine Color Urine Clarity Urine pH Ur Specific [place] Urine Protein Urine Glucose (UA) Urine Ketones Urine Blood Urine Nitrate Urine Bilirubin Urine Urobilinogen Ur Leukocyte Esterase Urine WBC (Auto) Urine RBC (Auto) Urine Bacteria Assessment & Plan - Assessment and Plan (Free Text) Assessment: 72 yo male patient presenting with Left foot 2nd digit traumatic nail avulsion and mycotic toenails x9 Plan: Patient was seen, evaluated and treated with all questions and concerns addressed labs and vitals reviewed Left foot dressed with Betadine DSD Bactroban ointment ordered No plan for surgical intervention of the wound Podiatry will continue to follow in-house Podiatry will revisit with pierre perez
--- NOTE | 2017-11-23 11:39 | CP.PCM.CON ---
History of Present Illness - History of Present Illness History of Present Illness: INFECTIOUS DISEASE CONSULT; HPI: 72 y/o male with h/o Asthma, Benign Prostatic Hyperplasia Bipolar Disorder, CHF , COPD, Depression, HTN, Hypercholesterolemia, Schizophrenia presents to the ED following [facility]. patient had a cystoscopy 11/22/[address] Chiang In ER he was given fentanyl for pain,later found to be hypotensive ,febrile with elevated lactic acid,troponin levels and leucocytosis with bandemia. PT ALSO HAVING HEMATURIA S/P CYSTOSCOPY. INFECTIOUS DISEASE CONSULT REQUESTED BY PMD FOR SEPSIS/HYPOTENSION. EVENTS OF HOSPITAL COURSE NOTED. URINE CUTURE TODAY REPORTED +VE ESBL+VE E.COLI. PT PRESENTLY STARTED ON BROAD SPECTRUM ABX. Patient is confused unable to give review of symptoms. PMH: Anxiety, Asthma, Benign Prostatic Hyperplasia (bladder problem), Bipolar Disorder, CHF, COPD, Depression, HTN, Hypercholesterolemia, Chronic Kidney Disease (renal insufficiency), Schizophrenia Denies: Diabetes, Hepatitis, Sexually Transmitted Disease Surgical History: Tonsillectomy - [facility] Procedures EXCIS DEBRIDE OF WOUND, INFECT, OR BURN (08/17/14) OCCUPATIONAL THERAPY (08/28/14) PHYSICAL THERAPY NEC (08/28/14) Family History: States: Unknown Family Hx - Social History Hx Tobacco Use: No Hx Alcohol Use: No Hx Substance Use: No - Immunization History Hx Tetanus Toxoid Vaccination: No Hx Influenza Vaccination: No Hx Pneumococcal Vaccination: No ALLERGY: NKA. MEDS: REVIEWED. Past Patient History - Infectious Disease Hx of Infectious Diseases: None - Tetanus Immunizations Tetanus Immunization: Unknown - Past Medical History & Family History Past Medical History?: Yes - Past Social History Smoking Status: Unknown If Ever Smoked - CARDIAC Hx Congestive Heart Failure: Yes Hx Hypercholesterolemia: Yes Hx Hypertension: Yes - PULMONARY Hx Asthma: Yes Hx Chronic Obstructive Pulmonary Disease (COPD): Yes - HEENT Hx HEENT Problems: Yes Hx Cataracts: Yes - RENAL Hx Chronic Kidney Disease: Yes (renal insufficiency) - INTEGUMENTARY Hx Dermatological Problems: No - GASTROINTESTINAL Hx Gastrointestinal Disorders: No - GENITOURINARY/GYNECOLOGICAL Hx Sexually Transmitted Disorders: No - PSYCHIATRIC Hx Anxiety: Yes Hx Bipolar Disorder: Yes Hx Depression: Yes Hx Schizophrenia: Yes Hx Substance Use: No - SURGICAL HISTORY Hx Tonsillectomy: Yes - ANESTHESIA Hx Anesthesia: Yes Hx Anesthesia Reactions: No Hx Malignant Hyperthermia: No Meds Allergies/Adverse Reactions: Allergies Allergy/AdvReac Type Severity Reaction Status Date / Time No Known Allergies Allergy Verified 11/22/17 17:13 - Medications Medications: Current Medications Acetaminophen (Tylenol 325mg Tab) 650 mg PO Q6 PRN PRN Reason: Fever >100.4 F Last Admin: 11/23/17 00:18 Dose: 650 mg Dextrose (Dextrose 50% Inj) 50 ml IV ACHS PRN PRN Reason: Hypoglycemia Last Admin: 11/23/17 08:55 Dose: 50 ml Vancomycin HCl 1.25 gm/ Sodium (Chloride) 250 mls @ 166.667 mls/hr IVPB Q24H [facility] PRN Reason: Protocol Last Admin: 11/23/17 09:35 Dose: 166.667 mls/hr Dextrose/Sodium Chloride (Dextrose 5%/0.9% Ns 1000 Ml) 1,000 mls @ 100 mls/hr IV .Q10H [facility] Last Admin: 11/23/17 09:47 Dose: 100 mls/hr Meropenem 500 mg/ Sodium (Chloride) 100 mls @ 100 mls/hr IVPB Q12H [facility] PRN Reason: Protocol Insulin Human Regular (Novolin R) 0 unit SC ACHS [facility]AN[facility]YAM PRN Reason: Protocol Last Admin: 11/23/17 08:40 Dose: Not Given Lorazepam (Ativan) 1 mg IVP Q6H PRN PRN Reason: Anxiety Mirtazapine (Remeron) 15 mg PO QPM [facility] Pantoprazole Sodium (Protonix Ec Tab) 40 mg PO DAILY [facility] Last Admin: 11/23/17 09:47 Dose: 40 mg Tamsulosin HCl (Flomax) 0.8 mg PO DAILY [facility] Last Admin: 11/23/17 09:47 Dose: 0.8 mg Valproate Sodium (Depakene Cap) 250 mg PO BID [facility] Last Admin: 11/23/17 09:47 Dose: 250 mg Physical Exam - Constitutional Appears: No Acute Distress - Head Exam Head Exam: NORMAL INSPECTION - Eye Exam Eye Exam: PERRL Additional comments: RT EYE CLOSE. - ENT Exam ENT Exam: Mucous Membranes Moist, Normal Oropharynx - Neck Exam Neck exam: Positive for: Normal Inspection - Respiratory Exam Respiratory Exam: Clear to Auscultation Bilateral, NORMAL BREATHING PATTERN - Cardiovascular Exam Cardiovascular Exam: REGULAR RHYTHM, +S1, +S2 - GI/Abdominal Exam GI & Abdominal Exam: Normal Bowel Sounds, Soft, Tenderness (SUPRAPUBIC . +VE FOLYS) - Extremities Exam Extremities exam: Positive for: pedal edema, pedal pulses present (TRAUMATIC AVULSION OF LT. 2ND TOE NAIL. CHRONIC STASIS DERMATITIS CHANGES B/L LE.). Negative for: calf tenderness - Neurological Exam Neurological exam: Altered - Skin Skin Exam: Normal Color, Warm Results - Vital Signs Recent Vital Signs: Last Vital Signs Temp 97.5 F L 11/23/17 08:00 Pulse 85 11/23/17 11:00 Resp 19 11/23/17 11:00 BP 126/87 11/23/17 10:30 Pulse Ox 98 11/23/17 11:00 - Labs Result Diagrams: 11/23/17 07:01 11/23/17 07:01 Labs: Laboratory Results - last 24 hr 11/22/17 11/22/17 11/22/17 00:45 19:09 19:09 WBC 15.0 H D RBC 4.67 Hgb 14.2 Hct 42.2 MCV 90.3 D MCH 30.4 MCHC 33.7 RDW 14.1 Plt Count 85 L D MPV 9.6 Neut % (Auto) 98.5 H Lymph % (Auto) 0.7 L [place] % (Auto) 0.5 Eos % (Auto) 0.1 Baso % (Auto) 0.2 Neut # (Auto) 14.8 H Lymph # (Auto) 0.1 L [place] # (Auto) 0.1 Eos # (Auto) 0.0 Baso # (Auto) 0.0 Neutrophils % (Manual) 60 Band Neutrophils % 23 H* Lymphocytes % (Manual) 1 L Monocytes % (Manual) 2 Eosinophils % (Manual) 1 Metamyelocytes % 8 H Myelocytes % 5 H Platelet Estimate Decreased L RBC Morphology ESR PT 18.9 H INR 1.7 APTT 45 H pO2 19 L VBG pH 7.28 L VBG pCO2 33 L VBG HCO3 14.9 VBG Total CO2 16.5 L VBG O2 Sat (Calc) 33.7 L VBG Base Excess -10.2 L VBG Potassium 3.1 L Sodium 143.0 Chloride 115.0 H Glucose 49 L Lactate 3.7 H Crit Value Called To Crit Value Called By Crit Value Read Back Blood Gas Notified Time Potassium Carbon Dioxide Anion Gap BUN Creatinine Est GFR ( Amer) Est GFR (Non-Af Amer) POC Glucose (mg/dL) Random Glucose Lactic Acid Calcium Phosphorus Magnesium Total Bilirubin AST ALT Alkaline Phosphatase Troponin I C-React Prot High Sens NT-Pro-B Natriuret Pep Total Protein Albumin Globulin Albumin/Globulin Ratio Procalcitonin Venous Blood Potassium 3.1 L Urine Color Urine Clarity Urine pH Ur Specific [place] Urine Protein Urine Glucose (UA) Urine Ketones Urine Blood Urine Nitrate Urine Bilirubin Urine Urobilinogen Ur Leukocyte Esterase Urine WBC (Auto) Urine RBC (Auto) Urine Bacteria 11/22/17 11/22/17 11/22/17 19:09 20:22 20:32 WBC RBC Hgb Hct MCV MCH MCHC RDW Plt Count MPV Neut % (Auto) Lymph % (Auto) [place] % (Auto) Eos % (Auto) Baso % (Auto) Neut # (Auto) Lymph # (Auto) [place] # (Auto) Eos # (Auto) Baso # (Auto) Neutrophils % (Manual) Band Neutrophils % Lymphocytes % (Manual) Monocytes % (Manual) Eosinophils % (Manual) Metamyelocytes % Myelocytes % Platelet Estimate RBC Morphology ESR 2 PT INR APTT pO2 19 L VBG pH 7.35 VBG pCO2 35 L VBG HCO3 18.6 VBG Total CO2 20.4 L VBG O2 Sat (Calc) 40.6 VBG Base Excess -5.6 L VBG Potassium 3.4 L Sodium 140 141.0 Chloride 106 111.0 H Glucose 54 L Lactate 4.3 H* Crit Value Called To Annabella betts rn Crit Value Called By [place] Crit Value Read Back Y Blood Gas Notified Time 2024 Potassium 4.1 Carbon Dioxide 21 L Anion Gap 18 BUN 33 H Creatinine 1.5 Est GFR ( Amer) 56 Est GFR (Non-Af Amer) 46 POC Glucose (mg/dL) Random Glucose 52 L Lactic Acid Calcium 8.6 Phosphorus Magnesium Total Bilirubin 6.2 H AST 342 H ALT 125 H D Alkaline Phosphatase 86 Troponin I 0.2330 H* C-React Prot High Sens NT-Pro-B Natriuret Pep 3380 H Total Protein 5.9 L Albumin 3.0 L D Globulin 2.9 Albumin/Globulin Ratio 1.0 Procalcitonin Venous Blood Potassium 3.4 L Urine Color Urine Clarity Urine pH Ur Specific [place] Urine Protein Urine Glucose (UA) Urine Ketones Urine Blood Urine Nitrate Urine Bilirubin Urine Urobilinogen Ur Leukocyte Esterase Urine WBC (Auto) Urine RBC (Auto) Urine Bacteria 11/22/17 11/22/17 11/22/17 20:32 20:32 20:32 WBC RBC Hgb Hct MCV MCH MCHC RDW Plt Count MPV Neut % (Auto) Lymph % (Auto) [place] % (Auto) Eos % (Auto) Baso % (Auto) Neut # (Auto) Lymph # (Auto) [place] # (Auto) Eos # (Auto) Baso # (Auto) Neutrophils % (Manual) Band Neutrophils % Lymphocytes % (Manual) Monocytes % (Manual) Eosinophils % (Manual) Metamyelocytes % Myelocytes % Platelet Estimate RBC Morphology ESR PT INR APTT pO2 VBG pH VBG pCO2 VBG HCO3 VBG Total CO2 VBG O2 Sat (Calc) VBG Base Excess VBG Potassium Sodium Chloride Glucose Lactate Crit Value Called To Crit Value Called By Crit Value Read Back Blood Gas Notified Time Potassium Carbon Dioxide Anion Gap BUN Creatinine Est GFR ( Amer) Est GFR (Non-Af Amer) POC Glucose (mg/dL) Random Glucose Lactic Acid Calcium Phosphorus Magnesium 1.8 Total Bilirubin AST ALT Alkaline Phosphatase Troponin I C-React Prot High Sens > 15.00 H NT-Pro-B Natriuret Pep Total Protein Albumin Globulin Albumin/Globulin Ratio Procalcitonin 137.36 H Venous Blood Potassium Urine Color Urine Clarity Urine pH Ur Specific [place] Urine Protein Urine Glucose (UA) Urine Ketones Urine Blood Urine Nitrate Urine Bilirubin Urine Urobilinogen Ur Leukocyte Esterase Urine WBC (Auto) Urine RBC (Auto) Urine Bacteria 11/22/17 11/23/17 11/23/17 20:42 03:54 04:16 WBC RBC Hgb Hct MCV MCH MCHC RDW Plt Count MPV Neut % (Auto) Lymph % (Auto) [place] % (Auto) Eos % (Auto) Baso % (Auto) Neut # (Auto) Lymph # (Auto) [place] # (Auto) Eos # (Auto) Baso # (Auto) Neutrophils % (Manual) Band Neutrophils % Lymphocytes % (Manual) Monocytes % (Manual) Eosinophils % (Manual) Metamyelocytes % Myelocytes % Platelet Estimate RBC Morphology ESR PT INR APTT pO2 VBG pH VBG pCO2 VBG HCO3 VBG Total CO2 VBG O2 Sat (Calc) VBG Base Excess VBG Potassium Sodium Chloride Glucose Lactate Crit Value Called To Crit Value Called By Crit Value Read Back Blood Gas Notified Time Potassium Carbon Dioxide Anion Gap BUN Creatinine Est GFR ( Amer) Est GFR (Non-Af Amer) POC Glucose (mg/dL) 49 L 108 Random Glucose Lactic Acid Calcium Phosphorus Magnesium Total Bilirubin AST ALT Alkaline Phosphatase Troponin I C-React Prot High Sens NT-Pro-B Natriuret Pep Total Protein Albumin Globulin Albumin/Globulin Ratio Procalcitonin Venous Blood Potassium Urine Color Red Urine Clarity Hazy Urine pH 5.0 Ur Specific [place] 1.016 Urine Protein 2+ H Urine Glucose (UA) Normal Urine Ketones Trace Urine Blood 3+ H Urine Nitrate Negative Urine Bilirubin Negative Urine Urobilinogen Normal Ur Leukocyte Esterase 1+ H Urine WBC (Auto) 33 H Urine RBC (Auto) 3819 H Urine Bacteria Few H 11/23/17 11/23/17 11/23/17 05:48 07:01 07:01 WBC 33.2 H D RBC 4.40 Hgb 13.3 Hct 39.8 MCV 90.5 MCH 30.3 MCHC 33.5 RDW 14.5 Plt Count 83 L MPV 11.2 Neut % (Auto) 94.8 H Lymph % (Auto) 0.5 L [place] % (Auto) 4.6 Eos % (Auto) 0.0 Baso % (Auto) 0.1 Neut # (Auto) 31.5 H Lymph # (Auto) 0.2 L [place] # (Auto) 1.5 H Eos # (Auto) 0.0 Baso # (Auto) 0.0 Neutrophils % (Manual) 74 Band Neutrophils % 21 H* Lymphocytes % (Manual) TEST NOT PERFORMED Monocytes % (Manual) 5 Eosinophils % (Manual) Metamyelocytes % Myelocytes % Platelet Estimate Decreased L RBC Morphology Normal ESR PT INR APTT pO2 VBG pH VBG pCO2 VBG HCO3 VBG Total CO2 VBG O2 Sat (Calc) VBG Base Excess VBG Potassium Sodium 142 Chloride 111 H Glucose Lactate Crit Value Called To Crit Value Called By Crit Value Read Back Blood Gas Notified Time Potassium 4.0 Carbon Dioxide 16 L Anion Gap 18 BUN 37 H Creatinine 1.8 H Est GFR ( Amer) 45 Est GFR (Non-Af Amer) 37 POC Glucose (mg/dL) 85 Random Glucose 62 L Lactic Acid Calcium 7.8 L Phosphorus 2.8 Magnesium 1.6 Total Bilirubin 2.2 H AST 401 H ALT 134 H Alkaline Phosphatase 65 Troponin I 0.3160 H* C-React Prot High Sens NT-Pro-B Natriuret Pep Total Protein 5.8 L Albumin 2.8 L Globulin 3.1 Albumin/Globulin Ratio 0.9 L Procalcitonin Venous Blood Potassium Urine Color Urine Clarity Urine pH Ur Specific [place] Urine Protein Urine Glucose (UA) Urine Ketones Urine Blood Urine Nitrate Urine Bilirubin Urine Urobilinogen Ur Leukocyte Esterase Urine WBC (Auto) Urine RBC (Auto) Urine Bacteria 11/23/17 11/23/17 11/23/17 07:01 08:42 08:44 WBC RBC Hgb Hct MCV MCH MCHC RDW Plt Count MPV Neut % (Auto) Lymph % (Auto) [place] % (Auto) Eos % (Auto) Baso % (Auto) Neut # (Auto) Lymph # (Auto) [place] # (Auto) Eos # (Auto) Baso # (Auto) Neutrophils % (Manual) Band Neutrophils % Lymphocytes % (Manual) Monocytes % (Manual) Eosinophils % (Manual) Metamyelocytes % Myelocytes % Platelet Estimate RBC Morphology ESR PT INR APTT pO2 VBG pH VBG pCO2 VBG HCO3 VBG Total CO2 VBG O2 Sat (Calc) VBG Base Excess VBG Potassium Sodium Chloride Glucose Lactate Crit Value Called To Crit Value Called By Crit Value Read Back Blood Gas Notified Time Potassium Carbon Dioxide Anion Gap BUN Creatinine Est GFR ( Amer) Est GFR (Non-Af Amer) POC Glucose (mg/dL) 58 L 56 L Random Glucose Lactic Acid 5.0 H* Calcium Phosphorus Magnesium Total Bilirubin AST ALT Alkaline Phosphatase Troponin I C-React Prot High Sens NT-Pro-B Natriuret Pep Total Protein Albumin Globulin Albumin/Globulin Ratio Procalcitonin Venous Blood Potassium Urine Color Urine Clarity Urine pH Ur Specific [place] Urine Protein Urine Glucose (UA) Urine Ketones Urine Blood Urine Nitrate Urine Bilirubin Urine Urobilinogen Ur Leukocyte Esterase Urine WBC (Auto) Urine RBC (Auto) Urine Bacteria 11/23/17 09:13 WBC RBC Hgb Hct MCV MCH MCHC RDW Plt Count MPV Neut % (Auto) Lymph % (Auto) [place] % (Auto) Eos % (Auto) Baso % (Auto) Neut # (Auto) Lymph # (Auto) [place] # (Auto) Eos # (Auto) Baso # (Auto) Neutrophils % (Manual) Band Neutrophils % Lymphocytes % (Manual) Monocytes % (Manual) Eosinophils % (Manual) Metamyelocytes % Myelocytes % Platelet Estimate RBC Morphology ESR PT INR APTT pO2 VBG pH VBG pCO2 VBG HCO3 VBG Total CO2 VBG O2 Sat (Calc) VBG Base Excess VBG Potassium Sodium Chloride Glucose Lactate Crit Value Called To Crit Value Called By Crit Value Read Back Blood Gas Notified Time Potassium Carbon Dioxide Anion Gap BUN Creatinine Est GFR ( Amer) Est GFR (Non-Af Amer) POC Glucose (mg/dL) 136 H Random Glucose Lactic Acid Calcium Phosphorus Magnesium Total Bilirubin AST ALT Alkaline Phosphatase Troponin I C-React Prot High Sens NT-Pro-B Natriuret Pep Total Protein Albumin Globulin Albumin/Globulin Ratio Procalcitonin Venous Blood Potassium Urine Color Urine Clarity Urine pH Ur Specific [place] Urine Protein Urine Glucose (UA) Urine Ketones Urine Blood Urine Nitrate Urine Bilirubin Urine Urobilinogen Ur Leukocyte Esterase Urine WBC (Auto) Urine RBC (Auto) Urine Bacteria - Imaging and Cardiology CT scan - head Status: Report reviewed by me ( NOTED ? VASOGENIC EDEMA LT FRONTAL REGION.) Additional comment: SINUS DISEASE. Assessment & Plan (1) Septic shock Assessment and Plan: PANCULTURE URINE CULTURE - +VE ESBL +VE E. COLI AGREE WITH IV MERREM 500MG IVPB Q 12HRLY. 11/23/17. IV VANCOMYCIN 1.25GM IVPB Q 24HRLY 11/22/17. F/U CULTURES TO ADJUST ABX. Status: Acute (2) UTI (urinary tract infection) Status: Chronic (3) Gross hematuria Status: Acute (4) S/P cystoscopy Status: Acute (5) BPH (benign prostatic hyperplasia) Status: Chronic (6) Renal insufficiency Assessment and Plan: 11/23/17. BUN 37/ CREAT 1.8 PT ON IV FLUIDS PER AD[employer]ION COORDINATOR TEAM Status: Acute
--- NOTE | 2017-11-23 11:47 | CP.PCM.CON ---
History of Present Illness - History of Present Illness History of Present Illness: Podiatry: Patient seen in ICU along with resident Dr Muhammad who will be dictating the full consult. Podiatrically patient has a traumatic avulsion of the left 2nd toenail. Underlying wound is clean and dry. Wound care orders written. He has severely mycotic and onychogryphotic toenails which will be debrided. These are also at risk for being traumatically avulsed. He has chronic discoloration of both ankles with no signs of acute cellulitis. No ulcerations of both feet noted and pedal pulses palpable. We will follow patient periodically for the wound left 2nd toe while he is hospitalized. Past Patient History - Infectious Disease Hx of Infectious Diseases: None - Tetanus Immunizations Tetanus Immunization: Unknown - Past Medical History & Family History Past Medical History?: Yes - Past Social History Smoking Status: Unknown If Ever Smoked - CARDIAC Hx Congestive Heart Failure: Yes Hx Hypercholesterolemia: Yes Hx Hypertension: Yes - PULMONARY Hx Asthma: Yes Hx Chronic Obstructive Pulmonary Disease (COPD): Yes - HEENT Hx HEENT Problems: Yes Hx Cataracts: Yes - RENAL Hx Chronic Kidney Disease: Yes (renal insufficiency) - INTEGUMENTARY Hx Dermatological Problems: No - GASTROINTESTINAL Hx Gastrointestinal Disorders: No - GENITOURINARY/GYNECOLOGICAL Hx Sexually Transmitted Disorders: No - PSYCHIATRIC Hx Anxiety: Yes Hx Bipolar Disorder: Yes Hx Depression: Yes Hx Schizophrenia: Yes Hx Substance Use: No - SURGICAL HISTORY Hx Tonsillectomy: Yes - ANESTHESIA Hx Anesthesia: Yes Hx Anesthesia Reactions: No Hx Malignant Hyperthermia: No Meds Allergies/Adverse Reactions: Allergies Allergy/AdvReac Type Severity Reaction Status Date / Time No Known Allergies Allergy Verified 11/22/17 17:13 - Medications Medications: Current Medications Acetaminophen (Tylenol 325mg Tab) 650 mg PO Q6 PRN PRN Reason: Fever >100.4 F Last Admin: 11/23/17 00:18 Dose: 650 mg Dextrose (Dextrose 50% Inj) 50 ml IV ACHS PRN PRN Reason: Hypoglycemia Last Admin: 11/23/17 08:55 Dose: 50 ml Vancomycin HCl 1.25 gm/ Sodium (Chloride) 250 mls @ 166.667 mls/hr IVPB Q24H GHANSHYAM PRN Reason: Protocol Last Admin: 11/23/17 09:35 Dose: 166.667 mls/hr Dextrose/Sodium Chloride (Dextrose 5%/0.9% Ns 1000 Ml) 1,000 mls @ 100 mls/hr IV .Q10H [facility] Last Admin: 11/23/17 09:47 Dose: 100 mls/hr Meropenem 500 mg/ Sodium (Chloride) 100 mls @ 100 mls/hr IVPB Q12H GHANSHYAM PRN Reason: Protocol Insulin Human Regular (Novolin R) 0 unit SC ACHS GHANSHYAM PRN Reason: Protocol Last Admin: 11/23/17 08:40 Dose: Not Given Lorazepam (Ativan) 1 mg IVP Q6H PRN PRN Reason: Anxiety Mirtazapine (Remeron) 15 mg PO QPM [facility] Mupirocin (Bactroban Ointment) 0 gm TOP DAILY [facility] Pantoprazole Sodium (Protonix Ec Tab) 40 mg PO DAILY [facility] Last Admin: 11/23/17 09:47 Dose: 40 mg Tamsulosin HCl (Flomax) 0.8 mg PO DAILY [facility] Last Admin: 11/23/17 09:47 Dose: 0.8 mg Valproate Sodium (Depakene Cap) 250 mg PO BID [facility] Last Admin: 11/23/17 09:47 Dose: 250 mg Results - Vital Signs Recent Vital Signs: Last Vital Signs Temp 97.5 F L 11/23/17 08:00 Pulse 85 11/23/17 11:00 Resp 19 11/23/17 11:00 BP 126/87 11/23/17 10:30 Pulse Ox 98 11/23/17 11:00 - Labs Result Diagrams: 11/23/17 07:01 11/23/17 07:01 Labs: Laboratory Results - last 24 hr 11/22/17 11/22/17 11/22/17 00:45 19:09 19:09 WBC 15.0 H D RBC 4.67 Hgb 14.2 Hct 42.2 MCV 90.3 D MCH 30.4 MCHC 33.7 RDW 14.1 Plt Count 85 L D MPV 9.6 Neut % (Auto) 98.5 H Lymph % (Auto) 0.7 L Davison % (Auto) 0.5 Eos % (Auto) 0.1 Baso % (Auto) 0.2 Neut # (Auto) 14.8 H Lymph # (Auto) 0.1 L Davison # (Auto) 0.1 Eos # (Auto) 0.0 Baso # (Auto) 0.0 Neutrophils % (Manual) 60 Band Neutrophils % 23 H* Lymphocytes % (Manual) 1 L Monocytes % (Manual) 2 Eosinophils % (Manual) 1 Metamyelocytes % 8 H Myelocytes % 5 H Platelet Estimate Decreased L RBC Morphology ESR PT 18.9 H INR 1.7 APTT 45 H pO2 19 L VBG pH 7.28 L VBG pCO2 33 L VBG HCO3 14.9 VBG Total CO2 16.5 L VBG O2 Sat (Calc) 33.7 L VBG Base Excess -10.2 L VBG Potassium 3.1 L Sodium 143.0 Chloride 115.0 H Glucose 49 L Lactate 3.7 H Crit Value Called To Crit Value Called By Crit Value Read Back Blood Gas Notified Time Potassium Carbon Dioxide Anion Gap BUN Creatinine Est GFR ( Amer) Est GFR (Non-Af Amer) POC Glucose (mg/dL) Random Glucose Lactic Acid Calcium Phosphorus Magnesium Total Bilirubin AST ALT Alkaline Phosphatase Troponin I C-React Prot High Sens NT-Pro-B Natriuret Pep Total Protein Albumin Globulin Albumin/Globulin Ratio Procalcitonin Venous Blood Potassium 3.1 L Urine Color Urine Clarity Urine pH Ur Specific [place] Urine Protein Urine Glucose (UA) Urine Ketones Urine Blood Urine Nitrate Urine Bilirubin Urine Urobilinogen Ur Leukocyte Esterase Urine WBC (Auto) Urine RBC (Auto) Urine Bacteria 11/22/17 11/22/17 11/22/17 19:09 20:22 20:32 WBC RBC Hgb Hct MCV MCH MCHC RDW Plt Count MPV Neut % (Auto) Lymph % (Auto) Davison % (Auto) Eos % (Auto) Baso % (Auto) Neut # (Auto) Lymph # (Auto) Davison # (Auto) Eos # (Auto) Baso # (Auto) Neutrophils % (Manual) Band Neutrophils % Lymphocytes % (Manual) Monocytes % (Manual) Eosinophils % (Manual) Metamyelocytes % Myelocytes % Platelet Estimate RBC Morphology ESR 2 PT INR APTT pO2 19 L VBG pH 7.35 VBG pCO2 35 L VBG HCO3 18.6 VBG Total CO2 20.4 L VBG O2 Sat (Calc) 40.6 VBG Base Excess -5.6 L VBG Potassium 3.4 L Sodium 140 141.0 Chloride 106 111.0 H Glucose 54 L Lactate 4.3 H* Crit Value Called To Annabella program manager Crit Value Called By [place] Crit Value Read Back Y Blood Gas Notified Time 2024 Potassium 4.1 Carbon Dioxide 21 L Anion Gap 18 BUN 33 H Creatinine 1.5 Est GFR ( Amer) 56 Est GFR (Non-Af Amer) 46 POC Glucose (mg/dL) Random Glucose 52 L Lactic Acid Calcium 8.6 Phosphorus Magnesium Total Bilirubin 6.2 H AST 342 H ALT 125 H D Alkaline Phosphatase 86 Troponin I 0.2330 H* C-React Prot High Sens NT-Pro-B Natriuret Pep 3380 H Total Protein 5.9 L Albumin 3.0 L D Globulin 2.9 Albumin/Globulin Ratio 1.0 Procalcitonin Venous Blood Potassium 3.4 L Urine Color Urine Clarity Urine pH Ur Specific [place] Urine Protein Urine Glucose (UA) Urine Ketones Urine Blood Urine Nitrate Urine Bilirubin Urine Urobilinogen Ur Leukocyte Esterase Urine WBC (Auto) Urine RBC (Auto) Urine Bacteria 11/22/17 11/22/17 11/22/17 20:32 20:32 20:32 WBC RBC Hgb Hct MCV MCH MCHC RDW Plt Count MPV Neut % (Auto) Lymph % (Auto) Davison % (Auto) Eos % (Auto) Baso % (Auto) Neut # (Auto) Lymph # (Auto) Davison # (Auto) Eos # (Auto) Baso # (Auto) Neutrophils % (Manual) Band Neutrophils % Lymphocytes % (Manual) Monocytes % (Manual) Eosinophils % (Manual) Metamyelocytes % Myelocytes % Platelet Estimate RBC Morphology ESR PT INR APTT pO2 VBG pH VBG pCO2 VBG HCO3 VBG Total CO2 VBG O2 Sat (Calc) VBG Base Excess VBG Potassium Sodium Chloride Glucose Lactate Crit Value Called To Crit Value Called By Crit Value Read Back Blood Gas Notified Time Potassium Carbon Dioxide Anion Gap BUN Creatinine Est GFR ( Amer) Est GFR (Non-Af Amer) POC Glucose (mg/dL) Random Glucose Lactic Acid Calcium Phosphorus Magnesium 1.8 Total Bilirubin AST ALT Alkaline Phosphatase Troponin I C-React Prot High Sens > 15.00 H NT-Pro-B Natriuret Pep Total Protein Albumin Globulin Albumin/Globulin Ratio Procalcitonin 137.36 H Venous Blood Potassium Urine Color Urine Clarity Urine pH Ur Specific [place] Urine Protein Urine Glucose (UA) Urine Ketones Urine Blood Urine Nitrate Urine Bilirubin Urine Urobilinogen Ur Leukocyte Esterase Urine WBC (Auto) Urine RBC (Auto) Urine Bacteria 11/22/17 11/23/17 11/23/17 20:42 03:54 04:16 WBC RBC Hgb Hct MCV MCH MCHC RDW Plt Count MPV Neut % (Auto) Lymph % (Auto) Dav[place] % (Auto) Eos % (Auto) Baso % (Auto) Neut # (Auto) Lymph # (Auto) Davison # (Auto) Eos # (Auto) Baso # (Auto) Neutrophils % (Manual) Band Neutrophils % Lymphocytes % (Manual) Monocytes % (Manual) Eosinophils % (Manual) Metamyelocytes % Myelocytes % Platelet Estimate RBC Morphology ESR PT INR APTT pO2 VBG pH VBG pCO2 VBG HCO3 VBG Total CO2 VBG O2 Sat (Calc) VBG Base Excess VBG Potassium Sodium Chloride Glucose Lactate Crit Value Called To Crit Value Called By Crit Value Read Back Blood Gas Notified Time Potassium Carbon Dioxide Anion Gap BUN Creatinine Est GFR ( Amer) Est GFR (Non-Af Amer) POC Glucose (mg/dL) 49 L 108 Random Glucose Lactic Acid Calcium Phosphorus Magnesium Total Bilirubin AST ALT Alkaline Phosphatase Troponin I C-React Prot High Sens NT-Pro-B Natriuret Pep Total Protein Albumin Globulin Albumin/Globulin Ratio Procalcitonin Venous Blood Potassium Urine Color Red Urine Clarity Hazy Urine pH 5.0 Ur Specific [place] 1.016 Urine Protein 2+ H Urine Glucose (UA) Normal Urine Ketones Trace Urine Blood 3+ H Urine Nitrate Negative Urine Bilirubin Negative Urine Urobilinogen Normal Ur Leukocyte Esterase 1+ H Urine WBC (Auto) 33 H Urine RBC (Auto) 3819 H Urine Bacteria Few H 11/23/17 11/23/17 11/23/17 05:48 07:01 07:01 WBC 33.2 H D RBC 4.40 Hgb 13.3 Hct 39.8 MCV 90.5 MCH 30.3 MCHC 33.5 RDW 14.5 Plt Count 83 L MPV 11.2 Neut % (Auto) 94.8 H Lymph % (Auto) 0.5 L Davison % (Auto) 4.6 Eos % (Auto) 0.0 Baso % (Auto) 0.1 Neut # (Auto) 31.5 H Lymph # (Auto) 0.2 L Davison # (Auto) 1.5 H Eos # (Auto) 0.0 Baso # (Auto) 0.0 Neutrophils % (Manual) 74 Band Neutrophils % 21 H* Lymphocytes % (Manual) TEST NOT PERFORMED Monocytes % (Manual) 5 Eosinophils % (Manual) Metamyelocytes % Myelocytes % Platelet Estimate Decreased L RBC Morphology Normal ESR PT INR APTT pO2 VBG pH VBG pCO2 VBG HCO3 VBG Total CO2 VBG O2 Sat (Calc) VBG Base Excess VBG Potassium Sodium 142 Chloride 111 H Glucose Lactate Crit Value Called To Crit Value Called By Crit Value Read Back Blood Gas Notified Time Potassium 4.0 Carbon Dioxide 16 L Anion Gap 18 BUN 37 H Creatinine 1.8 H Est GFR ( Amer) 45 Est GFR (Non-Af Amer) 37 POC Glucose (mg/dL) 85 Random Glucose 62 L Lactic Acid Calcium 7.8 L Phosphorus 2.8 Magnesium 1.6 Total Bilirubin 2.2 H AST 401 H ALT 134 H Alkaline Phosphatase 65 Troponin I 0.3160 H* C-React Prot High Sens NT-Pro-B Natriuret Pep Total Protein 5.8 L Albumin 2.8 L Globulin 3.1 Albumin/Globulin Ratio 0.9 L Procalcitonin Venous Blood Potassium Urine Color Urine Clarity Urine pH Ur Specific [place] Urine Protein Urine Glucose (UA) Urine Ketones Urine Blood Urine Nitrate Urine Bilirubin Urine Urobilinogen Ur Leukocyte Esterase Urine WBC (Auto) Urine RBC (Auto) Urine Bacteria 11/23/17 11/23/17 11/23/17 07:01 08:42 08:44 WBC RBC Hgb Hct MCV MCH MCHC RDW Plt Count MPV Neut % (Auto) Lymph % (Auto) Dav[place] % (Auto) Eos % (Auto) Baso % (Auto) Neut # (Auto) Lymph # (Auto) Davison # (Auto) Eos # (Auto) Baso # (Auto) Neutrophils % (Manual) Band Neutrophils % Lymphocytes % (Manual) Monocytes % (Manual) Eosinophils % (Manual) Metamyelocytes % Myelocytes % Platelet Estimate RBC Morphology ESR PT INR APTT pO2 VBG pH VBG pCO2 VBG HCO3 VBG Total CO2 VBG O2 Sat (Calc) VBG Base Excess VBG Potassium Sodium Chloride Glucose Lactate Crit Value Called To Crit Value Called By Crit Value Read Back Blood Gas Notified Time Potassium Carbon Dioxide Anion Gap BUN Creatinine Est GFR ( Amer) Est GFR (Non-Af Amer) POC Glucose (mg/dL) 58 L 56 L Random Glucose Lactic Acid 5.0 H* Calcium Phosphorus Magnesium Total Bilirubin AST ALT Alkaline Phosphatase Troponin I C-React Prot High Sens NT-Pro-B Natriuret Pep Total Protein Albumin Globulin Albumin/Globulin Ratio Procalcitonin Venous Blood Potassium Urine Color Urine Clarity Urine pH Ur Specific [place] Urine Protein Urine Glucose (UA) Urine Ketones Urine Blood Urine Nitrate Urine Bilirubin Urine Urobilinogen Ur Leukocyte Esterase Urine WBC (Auto) Urine RBC (Auto) Urine Bacteria 11/23/17 09:13 WBC RBC Hgb Hct MCV MCH MCHC RDW Plt Count MPV Neut % (Auto) Lymph % (Auto) Dav[place] % (Auto) Eos % (Auto) Baso % (Auto) Neut # (Auto) Lymph # (Auto) Dav[place] # (Auto) Eos # (Auto) Baso # (Auto) Neutrophils % (Manual) Band Neutrophils % Lymphocytes % (Manual) Monocytes % (Manual) Eosinophils % (Manual) Metamyelocytes % Myelocytes % Platelet Estimate RBC Morphology ESR PT INR APTT pO2 VBG pH VBG pCO2 VBG HCO3 VBG Total CO2 VBG O2 Sat (Calc) VBG Base Excess VBG Potassium Sodium Chloride Glucose Lactate Crit Value Called To Crit Value Called By Crit Value Read Back Blood Gas Notified Time Potassium Carbon Dioxide Anion Gap BUN Creatinine Est GFR ( Amer) Est GFR (Non-Af Amer) POC Glucose (mg/dL) 136 H Random Glucose Lactic Acid Calcium Phosphorus Magnesium Total Bilirubin AST ALT Alkaline Phosphatase Troponin I C-React Prot High Sens NT-Pro-B Natriuret Pep Total Protein Albumin Globulin Albumin/Globulin Ratio Procalcitonin Venous Blood Potassium Urine Color Urine Clarity Urine pH Ur Specific [place] Urine Protein Urine Glucose (UA) Urine Ketones Urine Blood Urine Nitrate Urine Bilirubin Urine Urobilinogen Ur Leukocyte Esterase Urine WBC (Auto) Urine RBC (Auto) Urine Bacteria
--- NOTE | 2017-11-23 12:07 | CP.CCUPN ---
<Judie Corrales - Last Filed: 11/23/17 12:02> CCU Subjective - Physician Review Subjective (Free Text): Patient is been seen and examined at bedside. Patient is altered and repeating "help me". States he can't breath but was refusing NC 02. Now on NC 02 with a 94% Saturation. CCU Objective - Vital Signs / Intake & Output Vital Signs (Last 4 hours): Vital Signs Pulse Resp BP Pulse Ox 11/23/17 11:00 85 19 98 11/23/17 10:30 90 18 126/87 96 11/23/17 10:00 98 H 13 88/55 L 96 11/23/17 09:00 94 H 16 98 11/23/17 08:46 94 H 15 125/97 H 97 11/23/17 08:45 95 H 14 97 11/23/17 08:30 92 H 29 H 97 11/23/17 08:15 94 H 16 96 Intake and Output (Last 8hrs): Intake & Output 11/22/17 11/23/17 11/23/17 22:59 06:59 14:59 Intake Total 1000 600 Balance 1000 600 Weight 204 lb 209 lb Intake: Intake, IV Amount 1000 600 Left Antecubital 1000 600 Oral 0 0 Other: Voiding Method Indwelling Catheter # Voids Urethral (Hawk) 0 0 # Bowel Movements 0 0 - Physical Exam Physical Exam Limitations: Positive for: Altered Mental Status Head: Positive for: Atraumatic, Normocephalic Extroacular Muscles: Positive for: EOMI Conjunctiva: Positive for: Normal Respiratory/Chest: Positive for: Clear to Auscultation Cardiovascular: Positive for: Normal S1, S2. Negative for: Bradycardic Abdomen: Positive for: Normal Bowel Sounds. Negative for: Tenderness, Distention Lower Extremity: Positive for: Other (B/L Lower Ext. Erythema. Skin is Dry. Traumatic avulsion of the left 2nd toenail) Psychiatric: Positive for: Alert, Agitated - Medications Active Medications: Active Medications Generic Name Dose Route Start Last Admin Trade Name Freq PRN Reason Stop Dose Admin Acetaminophen 650 mg 11/22/17 23:54 11/23/17 00:18 Tylenol 325mg Tab PO 650 mg Q6 PRN Administration Fever >100.4 F Dextrose 50 ml 11/23/17 08:46 05/23/18 08:55 Dextrose 50% Inj IV 50 ml ACHS PRN Administration Hypoglycemia Vancomycin HCl 1.25 gm/ Sodium 250 mls @ 166.667 mls/hr 11/23/17 09:30 09:35 Chloride IVPB 166.667 mls/hr Q24H GHANSHYAM Administration Protocol Dextrose/Sodium Chloride 1,000 mls @ 100 mls/hr 11/23/17 09:30 11/23/17 09:47 Dextrose 5%/0.9% Ns 1000 Ml IV 100 mls/hr .Q10H GHANSHYAM Administration Meropenem 500 mg/ Sodium 100 mls @ 100 mls/hr 11/23/17 12:00 Chloride IVPB Q12H [facility] Protocol Insulin Human Regular 0 unit 11/23/17 07:30 11/23/17 08:40 Novolin R SC Not Given ACHS [facility] Protocol Lorazepam 1 mg 11/23/17 09:27 Ativan IVP Q6H PRN Anxiety Mirtazapine 15 mg 11/23/17 18:00 Remeron PO QPM GHANSHYAM Mupirocin 0 gm 11/24/17 10:00 Bactroban Ointment TOP DAILY [facility] Pantoprazole Sodium 40 mg 11/23/17 10:00 11/23/17 09:47 Protonix Ec Tab PO 40 mg DAILY GHANSHYAM Administration Tamsulosin HCl 0.8 mg 11/23/17 10:00 11/23/17 09:47 Flomax PO 0.8 mg DAILY GHANSHYAM Administration Valproate Sodium 250 mg 11/23/17 10:00 11/23/17 09:47 Depakene Cap PO 250 mg BID GHANSHYAM Administration - Patient Studies Lab Studies: Lab Studies 11/23/17 11/23/17 11/23/17 Range/Units 09:13 08:44 08:42 WBC (4.8-10.8) K/uL RBC (4.40-5.90) Mil/uL Hgb (12.0-18.0) g/dL Hct (35.0-51.0) % MCV (80.0-94.0) fL MCH (27.0-31.0) pg MCHC (33.0-37.0) g/dL RDW (11.5-14.5) % Plt Count (130-400) K/uL MPV (7.2-11.7) fL Neut % (Auto) (50.0-75.0) % Lymph % (Auto) (20.0-40.0) % Mckean % (Auto) (0.0-10.0) % Eos % (Auto) (0.0-4.0) % Baso % (Auto) (0.0-2.0) % Neut # (Auto) (1.8-7.0) K/uL Lymph # (Auto) (1.0-4.3) K/uL Mckean # (Auto) (0.0-0.8) K/uL Eos # (Auto) (0.0-0.7) K/uL Baso # (Auto) (0.0-0.2) K/uL Neutrophils % (Manual) (50-75) % Band Neutrophils % (0-2) % Lymphocytes % (Manual) (20-40) % Monocytes % (Manual) (0-10) % Eosinophils % (Manual) (0-4) % Metamyelocytes % (0-0) % Myelocytes % (0-0) % Platelet Estimate (NORMAL) RBC Morphology ESR (0-15) mm/hr PT (9.7-12.2) SECONDS INR APTT (21-34) SECONDS pO2 (30-55) mm/Hg VBG pH (7.32-7.43) VBG pCO2 (40-60) mmHg VBG HCO3 mmol/L VBG Total CO2 (22-28) mmol/L VBG O2 Sat (Calc) (40-65) % VBG Base Excess (0.0-2.0) mmol/L VBG Potassium (3.6-5.2) mmol/L Sodium (132-148) mmol/l Chloride (98-107) mmol/L Glucose (75-110) mg/dl Lactate (0.7-2.1) mmol/L Crit Value Called To Crit Value Called By Crit Value Read Back Blood Gas Notified Time Potassium (3.6-5.2) mmol/L Carbon Dioxide (22-30) mmol/L Anion Gap (10-20) BUN (9-20) mg/dL Creatinine (0.8-1.5) mg/dL Est GFR ( Amer) Est GFR (Non-Af Amer) POC Glucose (mg/dL) 136 H 56 L 58 L (65-110) mg/dL Random Glucose (75-110) mg/dL Lactic Acid (0.7-2.1) mmol/L Calcium (8.6-10.4) mg/dl Phosphorus (2.5-4.5) mg/dL Magnesium (1.6-2.3) mg/dL Total Bilirubin (0.2-1.3) mg/dL AST (17-59) U/L ALT (21-72) U/L Alkaline Phosphatase (38-126) U/L Troponin I (0.00-0.120) ng/mL C-React Prot High Sens (1.00-3.00) mg/L NT-Pro-B Natriuret Pep (0-900) pg/mL Total Protein (6.3-8.3) g/dL Albumin (3.5-5.0) g/dL Globulin (2.2-3.9) gm/dL Albumin/Globulin Ratio (1.0-2.1) Procalcitonin (0.19-0.49) NG/ML Venous Blood Potassium (3.6-5.2) mmol/L Urine Color (YELLOW) Urine Clarity (Clear) Urine pH (5.0-8.0) Ur Specific [place] (1.003-1.030) Urine Protein (NEGATIVE) mg/dL Urine Glucose (UA) (Normal) mg/dL Urine Ketones (NEGATIVE) mg/dL Urine Blood (NEGATIVE) Urine Nitrate (NEGATIVE) Urine Bilirubin (NEGATIVE) Urine Urobilinogen (0.2-1.0) mg/dL Ur Leukocyte Esterase (Negative) Valeriano/uL Urine WBC (Auto) (0-5) /hpf Urine RBC (Auto) (0-3) /hpf Urine Bacteria (<OCC) 11/23/17 11/23/17 11/23/17 Range/Units 07:01 07:01 07:01 WBC 33.2 H D (4.8-10.8) K/uL RBC 4.40 (4.40-5.90) Mil/uL Hgb 13.3 (12.0-18.0) g/dL Hct 39.8 (35.0-51.0) % MCV 90.5 (80.0-94.0) fL MCH 30.3 (27.0-31.0) pg MCHC 33.5 (33.0-37.0) g/dL RDW 14.5 (11.5-14.5) % Plt Count 83 L (130-400) K/uL MPV 11.2 (7.2-11.7) fL Neut % (Auto) 94.8 H (50.0-75.0) % Lymph % (Auto) 0.5 L (20.0-40.0) % Mckean % (Auto) 4.6 (0.0-10.0) % Eos % (Auto) 0.0 (0.0-4.0) % Baso % (Auto) 0.1 (0.0-2.0) % Neut # (Auto) 31.5 H (1.8-7.0) K/uL Lymph # (Auto) 0.2 L (1.0-4.3) K/uL Mckean # (Auto) 1.5 H (0.0-0.8) K/uL Eos # (Auto) 0.0 (0.0-0.7) K/uL Baso # (Auto) 0.0 (0.0-0.2) K/uL Neutrophils % (Manual) 74 (50-75) % Band Neutrophils % 21 H* (0-2) % Lymphocytes % (Manual) TEST NOT PERFORMED (20-40) % Monocytes % (Manual) 5 (0-10) % Eosinophils % (Manual) (0-4) % Metamyelocytes % (0-0) % Myelocytes % (0-0) % Platelet Estimate Decreased L (NORMAL) RBC Morphology Normal ESR (0-15) mm/hr PT (9.7-12.2) SECONDS INR APTT (21-34) SECONDS pO2 (30-55) mm/Hg VBG pH (7.32-7.43) VBG pCO2 (40-60) mmHg VBG HCO3 mmol/L VBG Total CO2 (22-28) mmol/L VBG O2 Sat (Calc) (40-65) % VBG Base Excess (0.0-2.0) mmol/L VBG Potassium (3.6-5.2) mmol/L Sodium 142 (132-148) mmol/l Chloride 111 H (98-107) mmol/L Glucose (75-110) mg/dl Lactate (0.7-2.1) mmol/L Crit Value Called To Crit Value Called By Crit Value Read Back Blood Gas Notified Time Potassium 4.0 (3.6-5.2) mmol/L Carbon Dioxide 16 L (22-30) mmol/L Anion Gap 18 (10-20) BUN 37 H (9-20) mg/dL Creatinine 1.8 H (0.8-1.5) mg/dL Est GFR ( Amer) 45 Est GFR (Non-Af Amer) 37 POC Glucose (mg/dL) (65-110) mg/dL Random Glucose 62 L (75-110) mg/dL Lactic Acid 5.0 H* (0.7-2.1) mmol/L Calcium 7.8 L (8.6-10.4) mg/dl Phosphorus 2.8 (2.5-4.5) mg/dL Magnesium 1.6 (1.6-2.3) mg/dL Total Bilirubin 2.2 H (0.2-1.3) mg/dL AST 401 H (17-59) U/L ALT 134 H (21-72) U/L Alkaline Phosphatase 65 (38-126) U/L Troponin I 0.3160 H* (0.00-0.120) ng/mL C-React Prot High Sens (1.00-3.00) mg/L NT-Pro-B Natriuret Pep (0-900) pg/mL Total Protein 5.8 L (6.3-8.3) g/dL Albumin 2.8 L (3.5-5.0) g/dL Globulin 3.1 (2.2-3.9) gm/dL Albumin/Globulin Ratio 0.9 L (1.0-2.1) Procalcitonin (0.19-0.49) NG/ML Venous Blood Potassium (3.6-5.2) mmol/L Urine Color (YELLOW) Urine Clarity (Clear) Urine pH (5.0-8.0) Ur Specific [place] (1.003-1.030) Urine Protein (NEGATIVE) mg/dL Urine Glucose (UA) (Normal) mg/dL Urine Ketones (NEGATIVE) mg/dL Urine Blood (NEGATIVE) Urine Nitrate (NEGATIVE) Urine Bilirubin (NEGATIVE) Urine Urobilinogen (0.2-1.0) mg/dL Ur Leukocyte Esterase (Negative) Valeriano/uL Urine WBC (Auto) (0-5) /hpf Urine RBC (Auto) (0-3) /hpf Urine Bacteria (<OCC) 11/23/17 11/23/17 11/23/17 Range/Units 05:48 04:16 03:54 WBC (4.8-10.8) K/uL RBC (4.40-5.90) Mil/uL Hgb (12.0-18.0) g/dL Hct (35.0-51.0) % MCV (80.0-94.0) fL MCH (27.0-31.0) pg MCHC (33.0-37.0) g/dL RDW (11.5-14.5) % Plt Count (130-400) K/uL MPV (7.2-11.7) fL Neut % (Auto) (50.0-75.0) % Lymph % (Auto) (20.0-40.0) % Mckean % (Auto) (0.0-10.0) % Eos % (Auto) (0.0-4.0) % Baso % (Auto) (0.0-2.0) % Neut # (Auto) (1.8-7.0) K/uL Lymph # (Auto) (1.0-4.3) K/uL Mckean # (Auto) (0.0-0.8) K/uL Eos # (Auto) (0.0-0.7) K/uL Baso # (Auto) (0.0-0.2) K/uL Neutrophils % (Manual) (50-75) % Band Neutrophils % (0-2) % Lymphocytes % (Manual) (20-40) % Monocytes % (Manual) (0-10) % Eosinophils % (Manual) (0-4) % Metamyelocytes % (0-0) % Myelocytes % (0-0) % Platelet Estimate (NORMAL) RBC Morphology ESR (0-15) mm/hr PT (9.7-12.2) SECONDS INR APTT (21-34) SECONDS pO2 (30-55) mm/Hg VBG pH (7.32-7.43) VBG pCO2 (40-60) mmHg VBG HCO3 mmol/L VBG Total CO2 (22-28) mmol/L VBG O2 Sat (Calc) (40-65) % VBG Base Excess (0.0-2.0) mmol/L VBG Potassium (3.6-5.2) mmol/L Sodium (132-148) mmol/l Chloride (98-107) mmol/L Glucose (75-110) mg/dl Lactate (0.7-2.1) mmol/L Crit Value Called To Crit Value Called By Crit Value Read Back Blood Gas Notified Time Potassium (3.6-5.2) mmol/L Carbon Dioxide (22-30) mmol/L Anion Gap (10-20) BUN (9-20) mg/dL Creatinine (0.8-1.5) mg/dL Est GFR ( Amer) Est GFR (Non-Af Amer) POC Glucose (mg/dL) 85 108 49 L (65-110) mg/dL Random Glucose (75-110) mg/dL Lactic Acid (0.7-2.1) mmol/L Calcium (8.6-10.4) mg/dl Phosphorus (2.5-4.5) mg/dL Magnesium (1.6-2.3) mg/dL Total Bilirubin (0.2-1.3) mg/dL AST (17-59) U/L ALT (21-72) U/L Alkaline Phosphatase (38-126) U/L Troponin I (0.00-0.120) ng/mL C-React Prot High Sens (1.00-3.00) mg/L NT-Pro-B Natriuret Pep (0-900) pg/mL Total Protein (6.3-8.3) g/dL Albumin (3.5-5.0) g/dL Globulin (2.2-3.9) gm/dL Albumin/Globulin Ratio (1.0-2.1) Procalcitonin (0.19-0.49) NG/ML Venous Blood Potassium (3.6-5.2) mmol/L Urine Color (YELLOW) Urine Clarity (Clear) Urine pH (5.0-8.0) Ur Specific [place] (1.003-1.030) Urine Protein (NEGATIVE) mg/dL Urine Glucose (UA) (Normal) mg/dL Urine Ketones (NEGATIVE) mg/dL Urine Blood (NEGATIVE) Urine Nitrate (NEGATIVE) Urine Bilirubin (NEGATIVE) Urine Urobilinogen (0.2-1.0) mg/dL Ur Leukocyte Esterase (Negative) Valeriano/uL Urine WBC (Auto) (0-5) /hpf Urine RBC (Auto) (0-3) /hpf Urine Bacteria (<OCC) 11/22/17 11/22/17 11/22/17 Range/Units 20:42 20:32 20:32 WBC (4.8-10.8) K/uL RBC (4.40-5.90) Mil/uL Hgb (12.0-18.0) g/dL Hct (35.0-51.0) % MCV (80.0-94.0) fL MCH (27.0-31.0) pg MCHC (33.0-37.0) g/dL RDW (11.5-14.5) % Plt Count (130-400) K/uL MPV (7.2-11.7) fL Neut % (Auto) (50.0-75.0) % Lymph % (Auto) (20.0-40.0) % Mckean % (Auto) (0.0-10.0) % Eos % (Auto) (0.0-4.0) % Baso % (Auto) (0.0-2.0) % Neut # (Auto) (1.8-7.0) K/uL Lymph # (Auto) (1.0-4.3) K/uL Mckean # (Auto) (0.0-0.8) K/uL Eos # (Auto) (0.0-0.7) K/uL Baso # (Auto) (0.0-0.2) K/uL Neutrophils % (Manual) (50-75) % Band Neutrophils % (0-2) % Lymphocytes % (Manual) (20-40) % Monocytes % (Manual) (0-10) % Eosinophils % (Manual) (0-4) % Metamyelocytes % (0-0) % Myelocytes % (0-0) % Platelet Estimate (NORMAL) RBC Morphology ESR (0-15) mm/hr PT (9.7-12.2) SECONDS INR APTT (21-34) SECONDS pO2 (30-55) mm/Hg VBG pH (7.32-7.43) VBG pCO2 (40-60) mmHg VBG HCO3 mmol/L VBG Total CO2 (22-28) mmol/L VBG O2 Sat (Calc) (40-65) % VBG Base Excess (0.0-2.0) mmol/L VBG Potassium (3.6-5.2) mmol/L Sodium (132-148) mmol/l Chloride (98-107) mmol/L Glucose (75-110) mg/dl Lactate (0.7-2.1) mmol/L Crit Value Called To Crit Value Called By Crit Value Read Back Blood Gas Notified Time Potassium (3.6-5.2) mmol/L Carbon Dioxide (22-30) mmol/L Anion Gap (10-20) BUN (9-20) mg/dL Creatinine (0.8-1.5) mg/dL Est GFR ( Amer) Est GFR (Non-Af Amer) POC Glucose (mg/dL) (65-110) mg/dL Random Glucose (75-110) mg/dL Lactic Acid (0.7-2.1) mmol/L Calcium (8.6-10.4) mg/dl Phosphorus (2.5-4.5) mg/dL Magnesium 1.8 (1.6-2.3) mg/dL Total Bilirubin (0.2-1.3) mg/dL AST (17-59) U/L ALT (21-72) U/L Alkaline Phosphatase (38-126) U/L Troponin I (0.00-0.120) ng/mL C-React Prot High Sens > 15.00 H (1.00-3.00) mg/L NT-Pro-B Natriuret Pep (0-900) pg/mL Total Protein (6.3-8.3) g/dL Albumin (3.5-5.0) g/dL Globulin (2.2-3.9) gm/dL Albumin/Globulin Ratio (1.0-2.1) Procalcitonin (0.19-0.49) NG/ML Venous Blood Potassium (3.6-5.2) mmol/L Urine Color Red (YELLOW) Urine Clarity Hazy (Clear) Urine pH 5.0 (5.0-8.0) Ur Specific [place] 1.016 (1.003-1.030) Urine Protein 2+ H (NEGATIVE) mg/dL Urine Glucose (UA) Normal (Normal) mg/dL Urine Ketones Trace (NEGATIVE) mg/dL Urine Blood 3+ H (NEGATIVE) Urine Nitrate Negative (NEGATIVE) Urine Bilirubin Negative (NEGATIVE) Urine Urobilinogen Normal (0.2-1.0) mg/dL Ur Leukocyte Esterase 1+ H (Negative) Valeriano/uL Urine WBC (Auto) 33 H (0-5) /hpf Urine RBC (Auto) 3819 H (0-3) /hpf Urine Bacteria Few H (<OCC) 11/22/17 11/22/17 11/22/17 Range/Units 20:32 20:32 20:22 WBC (4.8-10.8) K/uL RBC (4.40-5.90) Mil/uL Hgb (12.0-18.0) g/dL Hct (35.0-51.0) % MCV (80.0-94.0) fL MCH (27.0-31.0) pg MCHC (33.0-37.0) g/dL RDW (11.5-14.5) % Plt Count (130-400) K/uL MPV (7.2-11.7) fL Neut % (Auto) (50.0-75.0) % Lymph % (Auto) (20.0-40.0) % Mcke[place] % (Auto) (0.0-10.0) % Eos % (Auto) (0.0-4.0) % Baso % (Auto) (0.0-2.0) % Neut # (Auto) (1.8-7.0) K/uL Lymph # (Auto) (1.0-4.3) K/uL [place] # (Auto) (0.0-0.8) K/uL Eos # (Auto) (0.0-0.7) K/uL Baso # (Auto) (0.0-0.2) K/uL Neutrophils % (Manual) (50-75) % Band Neutrophils % (0-2) % Lymphocytes % (Manual) (20-40) % Monocytes % (Manual) (0-10) % Eosinophils % (Manual) (0-4) % Metamyelocytes % (0-0) % Myelocytes % (0-0) % Platelet Estimate (NORMAL) RBC Morphology ESR 2 (0-15) mm/hr PT (9.7-12.2) SECONDS INR APTT (21-34) SECONDS pO2 19 L (30-55) mm/Hg VBG pH 7.35 (7.32-7.43) VBG pCO2 35 L (40-60) mmHg VBG HCO3 18.6 mmol/L VBG Total CO2 20.4 L (22-28) mmol/L VBG O2 Sat (Calc) 40.6 (40-65) % VBG Base Excess -5.6 L (0.0-2.0) mmol/L VBG Potassium 3.4 L (3.6-5.2) mmol/L Sodium 141.0 (132-148) mmol/l Chloride 111.0 H (98-107) mmol/L Glucose 54 L (75-110) mg/dl Lactate 4.3 H* (0.7-2.1) mmol/L Crit Value Called To Annabella betts rn Crit Value Called By [place] Crit Value Read Back Y Blood Gas Notified Time 2024 Potassium (3.6-5.2) mmol/L Carbon Dioxide (22-30) mmol/L Anion Gap (10-20) BUN (9-20) mg/dL Creatinine (0.8-1.5) mg/dL Est GFR ( Amer) Est GFR (Non-Af Amer) POC Glucose (mg/dL) (65-110) mg/dL Random Glucose (75-110) mg/dL Lactic Acid (0.7-2.1) mmol/L Calcium (8.6-10.4) mg/dl Phosphorus (2.5-4.5) mg/dL Magnesium (1.6-2.3) mg/dL Total Bilirubin (0.2-1.3) mg/dL AST (17-59) U/L ALT (21-72) U/L Alkaline Phosphatase (38-126) U/L Troponin I (0.00-0.120) ng/mL C-React Prot High Sens (1.00-3.00) mg/L NT-Pro-B Natriuret Pep (0-900) pg/mL Total Protein (6.3-8.3) g/dL Albumin (3.5-5.0) g/dL Globulin (2.2-3.9) gm/dL Albumin/Globulin Ratio (1.0-2.1) Procalcitonin 137.36 H (0.19-0.49) NG/ML Venous Blood Potassium 3.4 L (3.6-5.2) mmol/L Urine Color (YELLOW) Urine Clarity (Clear) Urine pH (5.0-8.0) Ur Specific [place] (1.003-1.030) Urine Protein (NEGATIVE) mg/dL Urine Glucose (UA) (Normal) mg/dL Urine Ketones (NEGATIVE) mg/dL Urine Blood (NEGATIVE) Urine Nitrate (NEGATIVE) Urine Bilirubin (NEGATIVE) Urine Urobilinogen (0.2-1.0) mg/dL Ur Leukocyte Esterase (Negative) Valer[place]/uL Urine WBC (Auto) (0-5) /hpf Urine RBC (Auto) (0-3) /hpf Urine Bacteria (<OCC) 11/22/17 11/22/17 11/22/17 Range/Units 19:09 19:09 19:09 WBC 15.0 H D (4.8-10.8) K/uL RBC 4.67 (4.40-5.90) Mil/uL Hgb 14.2 (12.0-18.0) g/dL Hct 42.2 (35.0-51.0) % MCV 90.3 D (80.0-94.0) fL MCH 30.4 (27.0-31.0) pg MCHC 33.7 (33.0-37.0) g/dL RDW 14.1 (11.5-14.5) % Plt Count 85 L D (130-400) K/uL MPV 9.6 (7.2-11.7) fL Neut % (Auto) 98.5 H (50.0-75.0) % Lymph % (Auto) 0.7 L (20.0-40.0) % [place]ke[place] % (Auto) 0.5 (0.0-10.0) % Eos % (Auto) 0.1 (0.0-4.0) % Baso % (Auto) 0.2 (0.0-2.0) % Neut # (Auto) 14.8 H (1.8-7.0) K/uL Lymph # (Auto) 0.1 L (1.0-4.3) K/uL [place] # (Auto) 0.1 (0.0-0.8) K/uL Eos # (Auto) 0.0 (0.0-0.7) K/uL Baso # (Auto) 0.0 (0.0-0.2) K/uL Neutrophils % (Manual) 60 (50-75) % Band Neutrophils % 23 H* (0-2) % Lymphocytes % (Manual) 1 L (20-40) % Monocytes % (Manual) 2 (0-10) % Eosinophils % (Manual) 1 (0-4) % Metamyelocytes % 8 H (0-0) % Myelocytes % 5 H (0-0) % Platelet Estimate Decreased L (NORMAL) RBC Morphology ESR (0-15) mm/hr PT 18.9 H (9.7-12.2) SECONDS INR 1.7 APTT 45 H (21-34) SECONDS pO2 (30-55) mm/Hg VBG pH (7.32-7.43) VBG pCO2 (40-60) mmHg VBG HCO3 mmol/L VBG Total CO2 (22-28) mmol/L VBG O2 Sat (Calc) (40-65) % VBG Base Excess (0.0-2.0) mmol/L VBG Potassium (3.6-5.2) mmol/L Sodium 140 (132-148) mmol/l Chloride 106 (98-107) mmol/L Glucose (75-110) mg/dl Lactate (0.7-2.1) mmol/L Crit Value Called To Crit Value Called By Crit Value Read Back Blood Gas Notified Time Potassium 4.1 (3.6-5.2) mmol/L Carbon Dioxide 21 L (22-30) mmol/L Anion Gap 18 (10-20) BUN 33 H (9-20) mg/dL Creatinine 1.5 (0.8-1.5) mg/dL Est GFR ( Amer) 56 Est GFR (Non-Af Amer) 46 POC Glucose (mg/dL) (65-110) mg/dL Random Glucose 52 L (75-110) mg/dL Lactic Acid (0.7-2.1) mmol/L Calcium 8.6 (8.6-10.4) mg/dl Phosphorus (2.5-4.5) mg/dL Magnesium (1.6-2.3) mg/dL Total Bilirubin 6.2 H (0.2-1.3) mg/dL AST 342 H (17-59) U/L ALT 125 H D (21-72) U/L Alkaline Phosphatase 86 (38-126) U/L Troponin I 0.2330 H* (0.00-0.120) ng/mL C-React Prot High Sens (1.00-3.00) mg/L NT-Pro-B Natriuret Pep 3380 H (0-900) pg/mL Total Protein 5.9 L (6.3-8.3) g/dL Albumin 3.0 L D (3.5-5.0) g/dL Globulin 2.9 (2.2-3.9) gm/dL Albumin/Globulin Ratio 1.0 (1.0-2.1) Procalcitonin (0.19-0.49) NG/ML Venous Blood Potassium (3.6-5.2) mmol/L Urine Color (YELLOW) Urine Clarity (Clear) Urine pH (5.0-8.0) Ur Specific [place] (1.003-1.030) Urine Protein (NEGATIVE) mg/dL Urine Glucose (UA) (Normal) mg/dL Urine Ketones (NEGATIVE) mg/dL Urine Blood (NEGATIVE) Urine Nitrate (NEGATIVE) Urine Bilirubin (NEGATIVE) Urine Urobilinogen (0.2-1.0) mg/dL Ur Leukocyte Esterase (Negative) Valeriano/uL Urine WBC (Auto) (0-5) /hpf Urine RBC (Auto) (0-3) /hpf Urine Bacteria (<OCC) 11/22/17 Range/Units 00:45 WBC (4.8-10.8) K/uL RBC (4.40-5.90) Mil/uL Hgb (12.0-18.0) g/dL Hct (35.0-51.0) % MCV (80.0-94.0) fL MCH (27.0-31.0) pg MCHC (33.0-37.0) g/dL RDW (11.5-14.5) % Plt Count (130-400) K/uL MPV (7.2-11.7) fL Neut % (Auto) (50.0-75.0) % Lymph % (Auto) (20.0-40.0) % Mckean % (Auto) (0.0-10.0) % Eos % (Auto) (0.0-4.0) % Baso % (Auto) (0.0-2.0) % Neut # (Auto) (1.8-7.0) K/uL Lymph # (Auto) (1.0-4.3) K/uL Mckean # (Auto) (0.0-0.8) K/uL Eos # (Auto) (0.0-0.7) K/uL Baso # (Auto) (0.0-0.2) K/uL Neutrophils % (Manual) (50-75) % Band Neutrophils % (0-2) % Lymphocytes % (Manual) (20-40) % Monocytes % (Manual) (0-10) % Eosinophils % (Manual) (0-4) % Metamyelocytes % (0-0) % Myelocytes % (0-0) % Platelet Estimate (NORMAL) RBC Morphology ESR (0-15) mm/hr PT (9.7-12.2) SECONDS INR APTT (21-34) SECONDS pO2 19 L (30-55) mm/Hg VBG pH 7.28 L (7.32-7.43) VBG pCO2 33 L (40-60) mmHg VBG HCO3 14.9 mmol/L VBG Total CO2 16.5 L (22-28) mmol/L VBG O2 Sat (Calc) 33.7 L (40-65) % VBG Base Excess -10.2 L (0.0-2.0) mmol/L VBG Potassium 3.1 L (3.6-5.2) mmol/L Sodium 143.0 (132-148) mmol/l Chloride 115.0 H (98-107) mmol/L Glucose 49 L (75-110) mg/dl Lactate 3.7 H (0.7-2.1) mmol/L Crit Value Called To Crit Value Called By Crit Value Read Back Blood Gas Notified Time Potassium (3.6-5.2) mmol/L Carbon Dioxide (22-30) mmol/L Anion Gap (10-20) BUN (9-20) mg/dL Creatinine (0.8-1.5) mg/dL Est GFR ( Amer) Est GFR (Non-Af Amer) POC Glucose (mg/dL) (65-110) mg/dL Random Glucose (75-110) mg/dL Lactic Acid (0.7-2.1) mmol/L Calcium (8.6-10.4) mg/dl Phosphorus (2.5-4.5) mg/dL Magnesium (1.6-2.3) mg/dL Total Bilirubin (0.2-1.3) mg/dL AST (17-59) U/L ALT (21-72) U/L Alkaline Phosphatase (38-126) U/L Troponin I (0.00-0.120) ng/mL C-React Prot High Sens (1.00-3.00) mg/L NT-Pro-B Natriuret Pep (0-900) pg/mL Total Protein (6.3-8.3) g/dL Albumin (3.5-5.0) g/dL Globulin (2.2-3.9) gm/dL Albumin/Globulin Ratio (1.0-2.1) Procalcitonin (0.19-0.49) NG/ML Venous Blood Potassium 3.1 L (3.6-5.2) mmol/L Urine Color (YELLOW) Urine Clarity (Clear) Urine pH (5.0-8.0) Ur Specific [place] (1.003-1.030) Urine Protein (NEGATIVE) mg/dL Urine Glucose (UA) (Normal) mg/dL Urine Ketones (NEGATIVE) mg/dL Urine Blood (NEGATIVE) Urine Nitrate (NEGATIVE) Urine Bilirubin (NEGATIVE) Urine Urobilinogen (0.2-1.0) mg/dL Ur Leukocyte Esterase (Negative) [place]er[place]/uL Urine WBC (Auto) (0-5) /hpf Urine RBC (Auto) (0-3) /hpf Urine Bacteria (<OCC) Laboratory Results - last 24 hr 11/22/17 11/22/17 11/22/17 00:45 19:09 19:09 WBC 15.0 H D RBC 4.67 Hgb 14.2 Hct 42.2 MCV 90.3 D MCH 30.4 MCHC 33.7 RDW 14.1 Plt Count 85 L D MPV 9.6 Neut % (Auto) 98.5 H Lymph % (Auto) 0.7 L Mckean % (Auto) 0.5 Eos % (Auto) 0.1 Baso % (Auto) 0.2 Neut # (Auto) 14.8 H Lymph # (Auto) 0.1 L Mckean # (Auto) 0.1 Eos # (Auto) 0.0 Baso # (Auto) 0.0 Neutrophils % (Manual) 60 Band Neutrophils % 23 H* Lymphocytes % (Manual) 1 L Monocytes % (Manual) 2 Eosinophils % (Manual) 1 Metamyelocytes % 8 H Myelocytes % 5 H Platelet Estimate Decreased L RBC Morphology ESR PT 18.9 H INR 1.7 APTT 45 H pO2 19 L VBG pH 7.28 L VBG pCO2 33 L VBG HCO3 14.9 VBG Total CO2 16.5 L VBG O2 Sat (Calc) 33.7 L VBG Base Excess -10.2 L VBG Potassium 3.1 L Sodium 143.0 Chloride 115.0 H Glucose 49 L Lactate 3.7 H Crit Value Called To Crit Value Called By Crit Value Read Back Blood Gas Notified Time Potassium Carbon Dioxide Anion Gap BUN Creatinine Est GFR ( Amer) Est GFR (Non-Af Amer) POC Glucose (mg/dL) Random Glucose Lactic Acid Calcium Phosphorus Magnesium Total Bilirubin AST ALT Alkaline Phosphatase Troponin I C-React Prot High Sens NT-Pro-B Natriuret Pep Total Protein Albumin Globulin Albumin/Globulin Ratio Procalcitonin Venous Blood Potassium 3.1 L Urine Color Urine Clarity Urine pH Ur Specific [place] Urine Protein Urine Glucose (UA) Urine Ketones Urine Blood Urine Nitrate Urine Bilirubin Urine Urobilinogen Ur Leukocyte Esterase Urine WBC (Auto) Urine RBC (Auto) Urine Bacteria 11/22/17 11/22/17 11/22/17 19:09 20:22 20:32 WBC RBC Hgb Hct MCV MCH MCHC RDW Plt Count MPV Neut % (Auto) Lymph % (Auto) [place] % (Auto) Eos % (Auto) Baso % (Auto) Neut # (Auto) Lymph # (Auto) Mcke[place] # (Auto) Eos # (Auto) Baso # (Auto) Neutrophils % (Manual) Band Neutrophils % Lymphocytes % (Manual) Monocytes % (Manual) Eosinophils % (Manual) Metamyelocytes % Myelocytes % Platelet Estimate RBC Morphology ESR 2 PT INR APTT pO2 19 L VBG pH 7.35 VBG pCO2 35 L VBG HCO3 18.6 VBG Total CO2 20.4 L VBG O2 Sat (Calc) 40.6 VBG Base Excess -5.6 L VBG Potassium 3.4 L Sodium 140 141.0 Chloride 106 111.0 H Glucose 54 L Lactate 4.3 H* Crit Value Called To Annabella betts rn Crit Value Called By Reynal Crit Value Read Back Y Blood Gas Notified Time 2024 Potassium 4.1 Carbon Dioxide 21 L Anion Gap 18 BUN 33 H Creatinine 1.5 Est GFR ( Amer) 56 Est GFR (Non-Af Amer) 46 POC Glucose (mg/dL) Random Glucose 52 L Lactic Acid Calcium 8.6 Phosphorus Magnesium Total Bilirubin 6.2 H AST 342 H ALT 125 H D Alkaline Phosphatase 86 Troponin I 0.2330 H* C-React Prot High Sens NT-Pro-B Natriuret Pep 3380 H Total Protein 5.9 L Albumin 3.0 L D Globulin 2.9 Albumin/Globulin Ratio 1.0 Procalcitonin Venous Blood Potassium 3.4 L Urine Color Urine Clarity Urine pH Ur Specific [place] Urine Protein Urine Glucose (UA) Urine Ketones Urine Blood Urine Nitrate Urine Bilirubin Urine Urobilinogen Ur Leukocyte Esterase Urine WBC (Auto) Urine RBC (Auto) Urine Bacteria 11/22/17 11/22/17 11/22/17 20:32 20:32 20:32 WBC RBC Hgb Hct MCV MCH MCHC RDW Plt Count MPV Neut % (Auto) Lymph % (Auto) [place] % (Auto) Eos % (Auto) Baso % (Auto) Neut # (Auto) Lymph # (Auto) [place]ke[place] # (Auto) Eos # (Auto) Baso # (Auto) Neutrophils % (Manual) Band Neutrophils % Lymphocytes % (Manual) Monocytes % (Manual) Eosinophils % (Manual) Metamyelocytes % Myelocytes % Platelet Estimate RBC Morphology ESR PT INR APTT pO2 VBG pH VBG pCO2 VBG HCO3 VBG Total CO2 VBG O2 Sat (Calc) VBG Base Excess VBG Potassium Sodium Chloride Glucose Lactate Crit Value Called To Crit Value Called By Crit Value Read Back Blood Gas Notified Time Potassium Carbon Dioxide Anion Gap BUN Creatinine Est GFR ( Amer) Est GFR (Non-Af Amer) POC Glucose (mg/dL) Random Glucose Lactic Acid Calcium Phosphorus Magnesium 1.8 Total Bilirubin AST ALT Alkaline Phosphatase Troponin I C-React Prot High Sens > 15.00 H NT-Pro-B Natriuret Pep Total Protein Albumin Globulin Albumin/Globulin Ratio Procalcitonin 137.36 H Venous Blood Potassium Urine Color Urine Clarity Urine pH Ur Specific [place] Urine Protein Urine Glucose (UA) Urine Ketones Urine Blood Urine Nitrate Urine Bilirubin Urine Urobilinogen Ur Leukocyte Esterase Urine WBC (Auto) Urine RBC (Auto) Urine Bacteria 11/22/17 11/23/17 11/23/17 20:42 03:54 04:16 WBC RBC Hgb Hct MCV MCH MCHC RDW Plt Count MPV Neut % (Auto) Lymph % (Auto) Mckean % (Auto) Eos % (Auto) Baso % (Auto) Neut # (Auto) Lymph # (Auto) Mckean # (Auto) Eos # (Auto) Baso # (Auto) Neutrophils % (Manual) Band Neutrophils % Lymphocytes % (Manual) Monocytes % (Manual) Eosinophils % (Manual) Metamyelocytes % Myelocytes % Platelet Estimate RBC Morphology ESR PT INR APTT pO2 VBG pH VBG pCO2 VBG HCO3 VBG Total CO2 VBG O2 Sat (Calc) VBG Base Excess VBG Potassium Sodium Chloride Glucose Lactate Crit Value Called To Crit Value Called By Crit Value Read Back Blood Gas Notified Time Potassium Carbon Dioxide Anion Gap BUN Creatinine Est GFR ( Amer) Est GFR (Non-Af Amer) POC Glucose (mg/dL) 49 L 108 Random Glucose Lactic Acid Calcium Phosphorus Magnesium Total Bilirubin AST ALT Alkaline Phosphatase Troponin I C-React Prot High Sens NT-Pro-B Natriuret Pep Total Protein Albumin Globulin Albumin/Globulin Ratio Procalcitonin Venous Blood Potassium Urine Color Red Urine Clarity Hazy Urine pH 5.0 Ur Specific [place] 1.016 Urine Protein 2+ H Urine Glucose (UA) Normal Urine Ketones Trace Urine Blood 3+ H Urine Nitrate Negative Urine Bilirubin Negative Urine Urobilinogen Normal Ur Leukocyte Esterase 1+ H Urine WBC (Auto) 33 H Urine RBC (Auto) 3819 H Urine Bacteria Few H 11/23/17 11/23/17 11/23/17 05:48 07:01 07:01 WBC 33.2 H D RBC 4.40 Hgb 13.3 Hct 39.8 MCV 90.5 MCH 30.3 MCHC 33.5 RDW 14.5 Plt Count 83 L MPV 11.2 Neut % (Auto) 94.8 H Lymph % (Auto) 0.5 L Mckean % (Auto) 4.6 Eos % (Auto) 0.0 Baso % (Auto) 0.1 Neut # (Auto) 31.5 H Lymph # (Auto) 0.2 L Mckean # (Auto) 1.5 H Eos # (Auto) 0.0 Baso # (Auto) 0.0 Neutrophils % (Manual) 74 Band Neutrophils % 21 H* Lymphocytes % (Manual) TEST NOT PERFORMED Monocytes % (Manual) 5 Eosinophils % (Manual) Metamyelocytes % Myelocytes % Platelet Estimate Decreased L RBC Morphology Normal ESR PT INR APTT pO2 VBG pH VBG pCO2 VBG HCO3 VBG Total CO2 VBG O2 Sat (Calc) VBG Base Excess VBG Potassium Sodium 142 Chloride 111 H Glucose Lactate Crit Value Called To Crit Value Called By Crit Value Read Back Blood Gas Notified Time Potassium 4.0 Carbon Dioxide 16 L Anion Gap 18 BUN 37 H Creatinine 1.8 H Est GFR ( Amer) 45 Est GFR (Non-Af Amer) 37 POC Glucose (mg/dL) 85 Random Glucose 62 L Lactic Acid Calcium 7.8 L Phosphorus 2.8 Magnesium 1.6 Total Bilirubin 2.2 H AST 401 H ALT 134 H Alkaline Phosphatase 65 Troponin I 0.3160 H* C-React Prot High Sens NT-Pro-B Natriuret Pep Total Protein 5.8 L Albumin 2.8 L Globulin 3.1 Albumin/Globulin Ratio 0.9 L Procalcitonin Venous Blood Potassium Urine Color Urine Clarity Urine pH Ur Specific [place] Urine Protein Urine Glucose (UA) Urine Ketones Urine Blood Urine Nitrate Urine Bilirubin Urine Urobilinogen Ur Leukocyte Esterase Urine WBC (Auto) Urine RBC (Auto) Urine Bacteria 11/23/17 11/23/17 11/23/17 07:01 08:42 08:44 WBC RBC Hgb Hct MCV MCH MCHC RDW Plt Count MPV Neut % (Auto) Lymph % (Auto) Mckean % (Auto) Eos % (Auto) Baso % (Auto) Neut # (Auto) Lymph # (Auto) Mckean # (Auto) Eos # (Auto) Baso # (Auto) Neutrophils % (Manual) Band Neutrophils % Lymphocytes % (Manual) Monocytes % (Manual) Eosinophils % (Manual) Metamyelocytes % Myelocytes % Platelet Estimate RBC Morphology ESR PT INR APTT pO2 VBG pH VBG pCO2 VBG HCO3 VBG Total CO2 VBG O2 Sat (Calc) VBG Base Excess VBG Potassium Sodium Chloride Glucose Lactate Crit Value Called To Crit Value Called By Crit Value Read Back Blood Gas Notified Time Potassium Carbon Dioxide Anion Gap BUN Creatinine Est GFR ( Amer) Est GFR (Non-Af Amer) POC Glucose (mg/dL) 58 L 56 L Random Glucose Lactic Acid 5.0 H* Calcium Phosphorus Magnesium Total Bilirubin AST ALT Alkaline Phosphatase Troponin I C-React Prot High Sens NT-Pro-B Natriuret Pep Total Protein Albumin Globulin Albumin/Globulin Ratio Procalcitonin Venous Blood Potassium Urine Color Urine Clarity Urine pH Ur Specific [place] Urine Protein Urine Glucose (UA) Urine Ketones Urine Blood Urine Nitrate Urine Bilirubin Urine Urobilinogen Ur Leukocyte Esterase Urine WBC (Auto) Urine RBC (Auto) Urine Bacteria 11/23/17 09:13 WBC RBC Hgb Hct MCV MCH MCHC RDW Plt Count MPV Neut % (Auto) Lymph % (Auto) Mckean % (Auto) Eos % (Auto) Baso % (Auto) Neut # (Auto) Lymph # (Auto) Mckean # (Auto) Eos # (Auto) Baso # (Auto) Neutrophils % (Manual) Band Neutrophils % Lymphocytes % (Manual) Monocytes % (Manual) Eosinophils % (Manual) Metamyelocytes % Myelocytes % Platelet Estimate RBC Morphology ESR PT INR APTT pO2 VBG pH VBG pCO2 VBG HCO3 VBG Total CO2 VBG O2 Sat (Calc) VBG Base Excess VBG Potassium Sodium Chloride Glucose Lactate Crit Value Called To Crit Value Called By Crit Value Read Back Blood Gas Notified Time Potassium Carbon Dioxide Anion Gap BUN Creatinine Est GFR ( Amer) Est GFR (Non-Af Amer) POC Glucose (mg/dL) 136 H Random Glucose Lactic Acid Calcium Phosphorus Magnesium Total Bilirubin AST ALT Alkaline Phosphatase Troponin I C-React Prot High Sens NT-Pro-B Natriuret Pep Total Protein Albumin Globulin Albumin/Globulin Ratio Procalcitonin Venous Blood Potassium Urine Color Urine Clarity Urine pH Ur Specific [place] Urine Protein Urine Glucose (UA) Urine Ketones Urine Blood Urine Nitrate Urine Bilirubin Urine Urobilinogen Ur Leukocyte Esterase Urine WBC (Auto) Urine RBC (Auto) Urine Bacteria EKG/Cardiology Studies: Cardiology / EKG Studies 11/22/17 18:21 ELECTROCARDIOGRAM Stat Comment: Mode Of Transportation: BED Reason For Exam: Palpations 11/23/17 07:00 EKG [ELECTROCARDIOGRAM] Routine Comment: Mode Of Transportation: PORTABLE Reason For Exam: elevated troponin Fingerstick Blood Sugar Results: 58 Review of Systems - Review of Systems Systems not reviewed;Unavailable: Altered Mental Status Critical Care Progress Note - Nutrition Nutrition: Nutrition Category Date Time Status Heart Healthy Diet [DIET] Diets 11/22/17 Dinner Active Assessment/Plan - Assessment and Plan (Free Text) Assessment: 72 y/o male with h/o Asthma, Benign Prostatic Hyperplasia Bipolar Disorder, CHF , COPD, Depression, HTN, Hypercholesterolemia, Schizophrenia presents to the ED following fall at [facility]. Admitted to ICU for hypotension and Sepsis w/ bandemia. Plan: Neuro: GCS: 13 Sedation: None A: AMS CT Head (Adm): Vasoactive Edema in Left Frontal Lobe MRI Ordered Cardio A: RI (Type II), Hx of HTN, HLD Troponins Elevated, Repeat ordered for this Afternoon Consider Statin. Pulm A: Hypoxia, Hx of Asthma, Hx of COPD Tolerating 3L 02 NC ID A: Sepsis, Leukocytosis, Bandemia, Elevated Lactate, UTI, Possible Lower Extremity Cellulitis vs Chronic Discoloration WBC: 15.0 --> 33.2 BAND Neutrophils POSITIVE - 21 Urine Culture from Urologist POSITIVE for ESBL Vancomycin 1.25 Grams Daily started for cellultis Meropenem 500 Q12 Started for ESBL in Urine Tylenol PRN for fever Blood Culture, Urine Culture, MRSA Screen - PENDING UA (11/22): POSITIVE Leuk ES, WBCs, Urine RBCs, Urine Bacteria ID Consulted, Recs Appreciated Endo: A: Hypoglycemia d50 PRN Consider C-peptide and Insulin Lvls Psych: A: Schizoaffective DO, Depression Ativan 1 Q6H for anxiety or Agitation. Valproic Acid 250mg BID Remeron 15mg PO QPM Renal A: Hematuria s/p Cystoscopy Yesterday (Resolved), AMADEO on CKD, BPH Renally Dose Ab/s Fluids: D5 in NS @ 100mls/hr Flomax 0.8mg PO Daily Urology on Consult Proph Protonix Hold DVT proph due to elevated INR, PTT, and hematuria No SCD due to possible lower ext. Cellulitis Patient seen and discussed with Attending Judie Corrales, PGY-1 <Lazaro Perez S - Last Filed: 11/23/17 17:42> CCU Objective - Vital Signs / Intake & Output Vital Signs (Last 4 hours): Vital Signs Pulse Resp BP Pulse Ox 11/23/17 16:39 98 H 27 H 86/52 L 99 11/23/17 15:28 95 H 24 93/56 L 100 11/23/17 15:00 96 H 17 99 11/23/17 14:28 102 H 11 L 96/59 L 95 11/23/17 14:04 107 H 17 83/46 L 91 L 11/23/17 13:37 96 H 16 82/51 L 100 Intake and Output (Last 8hrs): Intake & Output 11/23/17 11/23/17 11/23/17 06:59 14:59 22:59 Intake Total 1000 1150 200 Balance 1000 1150 200 Weight 209 lb Intake: Intake, IV Amount 1000 950 200 Left Antecubital 1000 950 200 Oral 0 200 Other: Voiding Method Indwelling Catheter # Voids Urethral (Hawk) 0 50 # Bowel Movements 0 0 - Medications Active Medications: Active Medications Generic Name Dose Route Start Last Admin Trade Name Freq PRN Reason Stop Dose Admin Acetaminophen 650 mg 11/22/17 23:54 11/23/17 00:18 Tylenol 325mg Tab PO 650 mg Q6 PRN Administration Fever >100.4 F Albuterol/Ipratropium 3 ml 11/23/17 12:33 Duoneb 3 Mg/0.5 Mg (3 Ml) Ud INH RQ2 PRN Shortness of Breath Dextrose 50 ml 11/23/17 12:09 11/23/17 16:42 Dextrose 50% Inj IV 50 ml Q2H PRN Administration Hypoglycemia Vancomycin HCl 1.25 gm/ Sodium 250 mls @ 166.667 mls/hr 11/23/17 09:30 09:35 Chloride IVPB 166.667 mls/hr Q24H GHANSHYAM Administration Protocol Dextrose/Sodium Chloride 1,000 mls @ 100 mls/hr 11/23/17 09:30 11/23/17 09:47 Dextrose 5%/0.9% Ns 1000 Ml IV 100 mls/hr .Q10H GHANSHYAM Administration Meropenem 500 mg/ Sodium 100 mls @ 100 mls/hr 11/23/17 12:00 11/23/17 12:41 Chloride IVPB 100 mls/hr Q12H GHANSHYAM Administration Protocol Insulin Human Regular 0 unit 11/23/17 07:30 11/23/17 12:00 Novolin R SC Not Given ACHS GHANSHYAM Protocol Lorazepam 1 mg 11/23/17 12:46 11/23/17 13:00 Ativan IVP 1 mg Q4H PRN Administration Anxiety Mirtazapine 15 mg 11/23/17 18:00 Remeron PO QPM GHANSHYAM Mupirocin 0 gm 11/24/17 10:00 Bactroban Ointment TOP DAILY GHANSHYAM Pantoprazole Sodium 40 mg 11/23/17 10:00 11/23/17 09:47 Protonix Ec Tab PO 40 mg DAILY GHANSHYAM Administration Tamsulosin HCl 0.8 mg 11/23/17 10:00 11/23/17 09:47 Flomax PO 0.8 mg DAILY GHANSHYAM Administration Valproate Sodium 250 mg 11/23/17 10:00 11/23/17 09:47 Depakene Cap PO 250 mg BID GHANSHYAM Administration - Patient Studies Lab Studies: Lab Studies 11/23/17 11/23/17 11/23/17 Range/Units 17:04 16:35 16:33 WBC (4.8-10.8) K/uL RBC (4.40-5.90) Mil/uL Hgb (12.0-18.0) g/dL Hct (35.0-51.0) % MCV (80.0-94.0) fL MCH (27.0-31.0) pg MCHC (33.0-37.0) g/dL RDW (11.5-14.5) % Plt Count (130-400) K/uL MPV (7.2-11.7) fL Neut % (Auto) (50.0-75.0) % Lymph % (Auto) (20.0-40.0) % Mckean % (Auto) (0.0-10.0) % Eos % (Auto) (0.0-4.0) % Baso % (Auto) (0.0-2.0) % Neut # (Auto) (1.8-7.0) K/uL Lymph # (Auto) (1.0-4.3) K/uL Mckean # (Auto) (0.0-0.8) K/uL Eos # (Auto) (0.0-0.7) K/uL Baso # (Auto) (0.0-0.2) K/uL Neutrophils % (Manual) (50-75) % Band Neutrophils % (0-2) % Lymphocytes % (Manual) (20-40) % Monocytes % (Manual) (0-10) % Eosinophils % (Manual) (0-4) % Metamyelocytes % (0-0) % Myelocytes % (0-0) % Platelet Estimate (NORMAL) RBC Morphology ESR (0-15) mm/hr PT (9.7-12.2) SECONDS INR APTT (21-34) SECONDS pO2 (30-55) mm/Hg VBG pH (7.32-7.43) VBG pCO2 (40-60) mmHg VBG HCO3 mmol/L VBG Total CO2 (22-28) mmol/L VBG O2 Sat (Calc) (40-65) % VBG Base Excess (0.0-2.0) mmol/L VBG Potassium (3.6-5.2) mmol/L Sodium (132-148) mmol/l Chloride (98-107) mmol/L Glucose (75-110) mg/dl Lactate (0.7-2.1) mmol/L Crit Value Called To Crit Value Called By Crit Value Read Back Blood Gas Notified Time Potassium (3.6-5.2) mmol/L Carbon Dioxide (22-30) mmol/L Anion Gap (10-20) BUN (9-20) mg/dL Creatinine (0.8-1.5) mg/dL Est GFR ( Amer) Est GFR (Non-Af Amer) POC Glucose (mg/dL) 83 29 L* 34 L* (65-110) mg/dL Random Glucose (75-110) mg/dL Lactic Acid (0.7-2.1) mmol/L Calcium (8.6-10.4) mg/dl Phosphorus (2.5-4.5) mg/dL Magnesium (1.6-2.3) mg/dL Total Bilirubin (0.2-1.3) mg/dL AST (17-59) U/L ALT (21-72) U/L Alkaline Phosphatase (38-126) U/L Troponin I (0.00-0.120) ng/mL C-React Prot High Sens (1.00-3.00) mg/L NT-Pro-B Natriuret Pep (0-900) pg/mL Total Protein (6.3-8.3) g/dL Albumin (3.5-5.0) g/dL Globulin (2.2-3.9) gm/dL Albumin/Globulin Ratio (1.0-2.1) Procalcitonin (0.19-0.49) NG/ML Venous Blood Potassium (3.6-5.2) mmol/L Urine Color (YELLOW) Urine Clarity (Clear) Urine pH (5.0-8.0) Ur Specific [place] (1.003-1.030) Urine Protein (NEGATIVE) mg/dL Urine Glucose (UA) (Normal) mg/dL Urine Ketones (NEGATIVE) mg/dL Urine Blood (NEGATIVE) Urine Nitrate (NEGATIVE) Urine Bilirubin (NEGATIVE) Urine Urobilinogen (0.2-1.0) mg/dL Ur Leukocyte Esterase (Negative) Valeriano/uL Urine WBC (Auto) (0-5) /hpf Urine RBC (Auto) (0-3) /hpf Urine Bacteria (<OCC) 11/23/17 11/23/17 11/23/17 Range/Units 13:24 12:53 12:09 WBC (4.8-10.8) K/uL RBC (4.40-5.90) Mil/uL Hgb (12.0-18.0) g/dL Hct (35.0-51.0) % MCV (80.0-94.0) fL MCH (27.0-31.0) pg MCHC (33.0-37.0) g/dL RDW (11.5-14.5) % Plt Count (130-400) K/uL MPV (7.2-11.7) fL Neut % (Auto) (50.0-75.0) % Lymph % (Auto) (20.0-40.0) % Mckean % (Auto) (0.0-10.0) % Eos % (Auto) (0.0-4.0) % Baso % (Auto) (0.0-2.0) % Neut # (Auto) (1.8-7.0) K/uL Lymph # (Auto) (1.0-4.3) K/uL Mckean # (Auto) (0.0-0.8) K/uL Eos # (Auto) (0.0-0.7) K/uL Baso # (Auto) (0.0-0.2) K/uL Neutrophils % (Manual) (50-75) % Band Neutrophils % (0-2) % Lymphocytes % (Manual) (20-40) % Monocytes % (Manual) (0-10) % Eosinophils % (Manual) (0-4) % Metamyelocytes % (0-0) % Myelocytes % (0-0) % Platelet Estimate (NORMAL) RBC Morphology ESR (0-15) mm/hr PT (9.7-12.2) SECONDS INR APTT (21-34) SECONDS pO2 (30-55) mm/Hg VBG pH (7.32-7.43) VBG pCO2 (40-60) mmHg VBG HCO3 mmol/L VBG Total CO2 (22-28) mmol/L VBG O2 Sat (Calc) (40-65) % VBG Base Excess (0.0-2.0) mmol/L VBG Potassium (3.6-5.2) mmol/L Sodium (132-148) mmol/l Chloride (98-107) mmol/L Glucose (75-110) mg/dl Lactate (0.7-2.1) mmol/L Crit Value Called To Crit Value Called By Crit Value Read Back Blood Gas Notified Time Potassium (3.6-5.2) mmol/L Carbon Dioxide (22-30) mmol/L Anion Gap (10-20) BUN (9-20) mg/dL Creatinine (0.8-1.5) mg/dL Est GFR ( Amer) Est GFR (Non-Af Amer) POC Glucose (mg/dL) 89 48 L (65-110) mg/dL Random Glucose (75-110) mg/dL Lactic Acid (0.7-2.1) mmol/L Calcium (8.6-10.4) mg/dl Phosphorus (2.5-4.5) mg/dL Magnesium (1.6-2.3) mg/dL Total Bilirubin (0.2-1.3) mg/dL AST (17-59) U/L ALT (21-72) U/L Alkaline Phosphatase (38-126) U/L Troponin I 0.3390 H* (0.00-0.120) ng/mL C-React Prot High Sens (1.00-3.00) mg/L NT-Pro-B Natriuret Pep (0-900) pg/mL Total Protein (6.3-8.3) g/dL Albumin (3.5-5.0) g/dL Globulin (2.2-3.9) gm/dL Albumin/Globulin Ratio (1.0-2.1) Procalcitonin (0.19-0.49) NG/ML Venous Blood Potassium (3.6-5.2) mmol/L Urine Color (YELLOW) Urine Clarity (Clear) Urine pH (5.0-8.0) Ur Specific [place] (1.003-1.030) Urine Protein (NEGATIVE) mg/dL Urine Glucose (UA) (Normal) mg/dL Urine Ketones (NEGATIVE) mg/dL Urine Blood (NEGATIVE) Urine Nitrate (NEGATIVE) Urine Bilirubin (NEGATIVE) Urine Urobilinogen (0.2-1.0) mg/dL Ur Leukocyte Esterase (Negative) Valeriano/uL Urine WBC (Auto) (0-5) /hpf Urine RBC (Auto) (0-3) /hpf Urine Bacteria (<OCC) 11/23/17 11/23/17 11/23/17 Range/Units 12:08 09:13 08:44 WBC (4.8-10.8) K/uL RBC (4.40-5.90) Mil/uL Hgb (12.0-18.0) g/dL Hct (35.0-51.0) % MCV (80.0-94.0) fL MCH (27.0-31.0) pg MCHC (33.0-37.0) g/dL RDW (11.5-14.5) % Plt Count (130-400) K/uL MPV (7.2-11.7) fL Neut % (Auto) (50.0-75.0) % Lymph % (Auto) (20.0-40.0) % [place] % (Auto) (0.0-10.0) % Eos % (Auto) (0.0-4.0) % Baso % (Auto) (0.0-2.0) % Neut # (Auto) (1.8-7.0) K/uL Lymph # (Auto) (1.0-4.3) K/uL [place] # (Auto) (0.0-0.8) K/uL Eos # (Auto) (0.0-0.7) K/uL Baso # (Auto) (0.0-0.2) K/uL Neutrophils % (Manual) (50-75) % Band Neutrophils % (0-2) % Lymphocytes % (Manual) (20-40) % Monocytes % (Manual) (0-10) % Eosinophils % (Manual) (0-4) % Metamyelocytes % (0-0) % Myelocytes % (0-0) % Platelet Estimate (NORMAL) RBC Morphology ESR (0-15) mm/hr PT (9.7-12.2) SECONDS INR APTT (21-34) SECONDS pO2 (30-55) mm/Hg VBG pH (7.32-7.43) VBG pCO2 (40-60) mmHg VBG HCO3 mmol/L VBG Total CO2 (22-28) mmol/L VBG O2 Sat (Calc) (40-65) % VBG Base Excess (0.0-2.0) mmol/L VBG Potassium (3.6-5.2) mmol/L Sodium (132-148) mmol/l Chloride (98-107) mmol/L Glucose (75-110) mg/dl Lactate (0.7-2.1) mmol/L Crit Value Called To Crit Value Called By Crit Value Read Back Blood Gas Notified Time Potassium (3.6-5.2) mmol/L Carbon Dioxide (22-30) mmol/L Anion Gap (10-20) BUN (9-20) mg/dL Creatinine (0.8-1.5) mg/dL Est GFR ( Amer) Est GFR (Non-Af Amer) POC Glucose (mg/dL) 49 L 136 H 56 L (65-110) mg/dL Random Glucose (75-110) mg/dL Lactic Acid (0.7-2.1) mmol/L Calcium (8.6-10.4) mg/dl Phosphorus (2.5-4.5) mg/dL Magnesium (1.6-2.3) mg/dL Total Bilirubin (0.2-1.3) mg/dL AST (17-59) U/L ALT (21-72) U/L Alkaline Phosphatase (38-126) U/L Troponin I (0.00-0.120) ng/mL C-React Prot High Sens (1.00-3.00) mg/L NT-Pro-B Natriuret Pep (0-900) pg/mL Total Protein (6.3-8.3) g/dL Albumin (3.5-5.0) g/dL Globulin (2.2-3.9) gm/dL Albumin/Globulin Ratio (1.0-2.1) Procalcitonin (0.19-0.49) NG/ML Venous Blood Potassium (3.6-5.2) mmol/L Urine Color (YELLOW) Urine Clarity (Clear) Urine pH (5.0-8.0) Ur Specific [place] (1.003-1.030) Urine Protein (NEGATIVE) mg/dL Urine Glucose (UA) (Normal) mg/dL Urine Ketones (NEGATIVE) mg/dL Urine Blood (NEGATIVE) Urine Nitrate (NEGATIVE) Urine Bilirubin (NEGATIVE) Urine Urobilinogen (0.2-1.0) mg/dL Ur Leukocyte Esterase (Negative) Valeriano/uL Urine WBC (Auto) (0-5) /hpf Urine RBC (Auto) (0-3) /hpf Urine Bacteria (<OCC) 11/23/17 11/23/17 11/23/17 Range/Units 08:42 07:01 07:01 WBC (4.8-10.8) K/uL RBC (4.40-5.90) Mil/uL Hgb (12.0-18.0) g/dL Hct (35.0-51.0) % MCV (80.0-94.0) fL MCH (27.0-31.0) pg MCHC (33.0-37.0) g/dL RDW (11.5-14.5) % Plt Count (130-400) K/uL MPV (7.2-11.7) fL Neut % (Auto) (50.0-75.0) % Lymph % (Auto) (20.0-40.0) % Mckean % (Auto) (0.0-10.0) % Eos % (Auto) (0.0-4.0) % Baso % (Auto) (0.0-2.0) % Neut # (Auto) (1.8-7.0) K/uL Lymph # (Auto) (1.0-4.3) K/uL Mckean # (Auto) (0.0-0.8) K/uL Eos # (Auto) (0.0-0.7) K/uL Baso # (Auto) (0.0-0.2) K/uL Neutrophils % (Manual) (50-75) % Band Neutrophils % (0-2) % Lymphocytes % (Manual) (20-40) % Monocytes % (Manual) (0-10) % Eosinophils % (Manual) (0-4) % Metamyelocytes % (0-0) % Myelocytes % (0-0) % Platelet Estimate (NORMAL) RBC Morphology ESR (0-15) mm/hr PT (9.7-12.2) SECONDS INR APTT (21-34) SECONDS pO2 (30-55) mm/Hg VBG pH (7.32-7.43) VBG pCO2 (40-60) mmHg VBG HCO3 mmol/L VBG Total CO2 (22-28) mmol/L VBG O2 Sat (Calc) (40-65) % VBG Base Excess (0.0-2.0) mmol/L VBG Potassium (3.6-5.2) mmol/L Sodium 142 (132-148) mmol/l Chloride 111 H (98-107) mmol/L Glucose (75-110) mg/dl Lactate (0.7-2.1) mmol/L Crit Value Called To Crit Value Called By Crit Value Read Back Blood Gas Notified Time Potassium 4.0 (3.6-5.2) mmol/L Carbon Dioxide 16 L (22-30) mmol/L Anion Gap 18 (10-20) BUN 37 H (9-20) mg/dL Creatinine 1.8 H (0.8-1.5) mg/dL Est GFR ( Amer) 45 Est GFR (Non-Af Amer) 37 POC Glucose (mg/dL) 58 L (65-110) mg/dL Random Glucose 62 L (75-110) mg/dL Lactic Acid 5.0 H* (0.7-2.1) mmol/L Calcium 7.8 L (8.6-10.4) mg/dl Phosphorus 2.8 (2.5-4.5) mg/dL Magnesium 1.6 (1.6-2.3) mg/dL Total Bilirubin 2.2 H (0.2-1.3) mg/dL AST 401 H (17-59) U/L ALT 134 H (21-72) U/L Alkaline Phosphatase 65 (38-126) U/L Troponin I 0.3160 H* (0.00-0.120) ng/mL C-React Prot High Sens (1.00-3.00) mg/L NT-Pro-B Natriuret Pep (0-900) pg/mL Total Protein 5.8 L (6.3-8.3) g/dL Albumin 2.8 L (3.5-5.0) g/dL Globulin 3.1 (2.2-3.9) gm/dL Albumin/Globulin Ratio 0.9 L (1.0-2.1) Procalcitonin (0.19-0.49) NG/ML Venous Blood Potassium (3.6-5.2) mmol/L Urine Color (YELLOW) Urine Clarity (Clear) Urine pH (5.0-8.0) Ur Specific [place] (1.003-1.030) Urine Protein (NEGATIVE) mg/dL Urine Glucose (UA) (Normal) mg/dL Urine Ketones (NEGATIVE) mg/dL Urine Blood (NEGATIVE) Urine Nitrate (NEGATIVE) Urine Bilirubin (NEGATIVE) Urine Urobilinogen (0.2-1.0) mg/dL Ur Leukocyte Esterase (Negative) [place]er[place]/uL Urine WBC (Auto) (0-5) /hpf Urine RBC (Auto) (0-3) /hpf Urine Bacteria (<OCC) 11/23/17 11/23/17 11/23/17 Range/Units 07:01 05:48 04:16 WBC 33.2 H D (4.8-10.8) K/uL RBC 4.40 (4.40-5.90) Mil/uL Hgb 13.3 (12.0-18.0) g/dL Hct 39.8 (35.0-51.0) % MCV 90.5 (80.0-94.0) fL MCH 30.3 (27.0-31.0) pg MCHC 33.5 (33.0-37.0) g/dL RDW 14.5 (11.5-14.5) % Plt Count 83 L (130-400) K/uL MPV 11.2 (7.2-11.7) fL Neut % (Auto) 94.8 H (50.0-75.0) % Lymph % (Auto) 0.5 L (20.0-40.0) % [place]ke[place] % (Auto) 4.6 (0.0-10.0) % Eos % (Auto) 0.0 (0.0-4.0) % Baso % (Auto) 0.1 (0.0-2.0) % Neut # (Auto) 31.5 H (1.8-7.0) K/uL Lymph # (Auto) 0.2 L (1.0-4.3) K/uL Mckean # (Auto) 1.5 H (0.0-0.8) K/uL Eos # (Auto) 0.0 (0.0-0.7) K/uL Baso # (Auto) 0.0 (0.0-0.2) K/uL Neutrophils % (Manual) 74 (50-75) % Band Neutrophils % 21 H* (0-2) % Lymphocytes % (Manual) TEST NOT PERFORMED (20-40) % Monocytes % (Manual) 5 (0-10) % Eosinophils % (Manual) (0-4) % Metamyelocytes % (0-0) % Myelocytes % (0-0) % Platelet Estimate Decreased L (NORMAL) RBC Morphology Normal ESR (0-15) mm/hr PT (9.7-12.2) SECONDS INR APTT (21-34) SECONDS pO2 (30-55) mm/Hg VBG pH (7.32-7.43) VBG pCO2 (40-60) mmHg VBG HCO3 mmol/L VBG Total CO2 (22-28) mmol/L VBG O2 Sat (Calc) (40-65) % VBG Base Excess (0.0-2.0) mmol/L VBG Potassium (3.6-5.2) mmol/L Sodium (132-148) mmol/l Chloride (98-107) mmol/L Glucose (75-110) mg/dl Lactate (0.7-2.1) mmol/L Crit Value Called To Crit Value Called By Crit Value Read Back Blood Gas Notified Time Potassium (3.6-5.2) mmol/L Carbon Dioxide (22-30) mmol/L Anion Gap (10-20) BUN (9-20) mg/dL Creatinine (0.8-1.5) mg/dL Est GFR ( Amer) Est GFR (Non-Af Amer) POC Glucose (mg/dL) 85 108 (65-110) mg/dL Random Glucose (75-110) mg/dL Lactic Acid (0.7-2.1) mmol/L Calcium (8.6-10.4) mg/dl Phosphorus (2.5-4.5) mg/dL Magnesium (1.6-2.3) mg/dL Total Bilirubin (0.2-1.3) mg/dL AST (17-59) U/L ALT (21-72) U/L Alkaline Phosphatase (38-126) U/L Troponin I (0.00-0.120) ng/mL C-React Prot High Sens (1.00-3.00) mg/L NT-Pro-B Natriuret Pep (0-900) pg/mL Total Protein (6.3-8.3) g/dL Albumin (3.5-5.0) g/dL Globulin (2.2-3.9) gm/dL Albumin/Globulin Ratio (1.0-2.1) Procalcitonin (0.19-0.49) NG/ML Venous Blood Potassium (3.6-5.2) mmol/L Urine Color (YELLOW) Urine Clarity (Clear) Urine pH (5.0-8.0) Ur Specific [place] (1.003-1.030) Urine Protein (NEGATIVE) mg/dL Urine Glucose (UA) (Normal) mg/dL Urine Ketones (NEGATIVE) mg/dL Urine Blood (NEGATIVE) Urine Nitrate (NEGATIVE) Urine Bilirubin (NEGATIVE) Urine Urobilinogen (0.2-1.0) mg/dL Ur Leukocyte Esterase (Negative) [place]/uL Urine WBC (Auto) (0-5) /hpf Urine RBC (Auto) (0-3) /hpf Urine Bacteria (<OCC) 11/23/17 11/22/17 11/22/17 Range/Units 03:54 20:42 20:32 WBC (4.8-10.8) K/uL RBC (4.40-5.90) Mil/uL Hgb (12.0-18.0) g/dL Hct (35.0-51.0) % MCV (80.0-94.0) fL MCH (27.0-31.0) pg MCHC (33.0-37.0) g/dL RDW (11.5-14.5) % Plt Count (130-400) K/uL MPV (7.2-11.7) fL Neut % (Auto) (50.0-75.0) % Lymph % (Auto) (20.0-40.0) % Mckean % (Auto) (0.0-10.0) % Eos % (Auto) (0.0-4.0) % Baso % (Auto) (0.0-2.0) % Neut # (Auto) (1.8-7.0) K/uL Lymph # (Auto) (1.0-4.3) K/uL [place] # (Auto) (0.0-0.8) K/uL Eos # (Auto) (0.0-0.7) K/uL Baso # (Auto) (0.0-0.2) K/uL Neutrophils % (Manual) (50-75) % Band Neutrophils % (0-2) % Lymphocytes % (Manual) (20-40) % Monocytes % (Manual) (0-10) % Eosinophils % (Manual) (0-4) % Metamyelocytes % (0-0) % Myelocytes % (0-0) % Platelet Estimate (NORMAL) RBC Morphology ESR (0-15) mm/hr PT (9.7-12.2) SECONDS INR APTT (21-34) SECONDS pO2 (30-55) mm/Hg VBG pH (7.32-7.43) VBG pCO2 (40-60) mmHg VBG HCO3 mmol/L VBG Total CO2 (22-28) mmol/L VBG O2 Sat (Calc) (40-65) % VBG Base Excess (0.0-2.0) mmol/L VBG Potassium (3.6-5.2) mmol/L Sodium (132-148) mmol/l Chloride (98-107) mmol/L Glucose (75-110) mg/dl Lactate (0.7-2.1) mmol/L Crit Value Called To Crit Value Called By Crit Value Read Back Blood Gas Notified Time Potassium (3.6-5.2) mmol/L Carbon Dioxide (22-30) mmol/L Anion Gap (10-20) BUN (9-20) mg/dL Creatinine (0.8-1.5) mg/dL Est GFR ( Amer) Est GFR (Non-Af Amer) POC Glucose (mg/dL) 49 L (65-110) mg/dL Random Glucose (75-110) mg/dL Lactic Acid (0.7-2.1) mmol/L Calcium (8.6-10.4) mg/dl Phosphorus (2.5-4.5) mg/dL Magnesium (1.6-2.3) mg/dL Total Bilirubin (0.2-1.3) mg/dL AST (17-59) U/L ALT (21-72) U/L Alkaline Phosphatase (38-126) U/L Troponin I (0.00-0.120) ng/mL C-React Prot High Sens > 15.00 H (1.00-3.00) mg/L NT-Pro-B Natriuret Pep (0-900) pg/mL Total Protein (6.3-8.3) g/dL Albumin (3.5-5.0) g/dL Globulin (2.2-3.9) gm/dL Albumin/Globulin Ratio (1.0-2.1) Procalcitonin (0.19-0.49) NG/ML Venous Blood Potassium (3.6-5.2) mmol/L Urine Color Red (YELLOW) Urine Clarity Hazy (Clear) Urine pH 5.0 (5.0-8.0) Ur Specific [place] 1.016 (1.003-1.030) Urine Protein 2+ H (NEGATIVE) mg/dL Urine Glucose (UA) Normal (Normal) mg/dL Urine Ketones Trace (NEGATIVE) mg/dL Urine Blood 3+ H (NEGATIVE) Urine Nitrate Negative (NEGATIVE) Urine Bilirubin Negative (NEGATIVE) Urine Urobilinogen Normal (0.2-1.0) mg/dL Ur Leukocyte Esterase 1+ H (Negative) Valeriano/uL Urine WBC (Auto) 33 H (0-5) /hpf Urine RBC (Auto) 3819 H (0-3) /hpf Urine Bacteria Few H (<OCC) 11/22/17 11/22/17 11/22/17 Range/Units 20:32 20:32 20:32 WBC (4.8-10.8) K/uL RBC (4.40-5.90) Mil/uL Hgb (12.0-18.0) g/dL Hct (35.0-51.0) % MCV (80.0-94.0) fL MCH (27.0-31.0) pg MCHC (33.0-37.0) g/dL RDW (11.5-14.5) % Plt Count (130-400) K/uL MPV (7.2-11.7) fL Neut % (Auto) (50.0-75.0) % Lymph % (Auto) (20.0-40.0) % Mckean % (Auto) (0.0-10.0) % Eos % (Auto) (0.0-4.0) % Baso % (Auto) (0.0-2.0) % Neut # (Auto) (1.8-7.0) K/uL Lymph # (Auto) (1.0-4.3) K/uL [place] # (Auto) (0.0-0.8) K/uL Eos # (Auto) (0.0-0.7) K/uL Baso # (Auto) (0.0-0.2) K/uL Neutrophils % (Manual) (50-75) % Band Neutrophils % (0-2) % Lymphocytes % (Manual) (20-40) % Monocytes % (Manual) (0-10) % Eosinophils % (Manual) (0-4) % Metamyelocytes % (0-0) % Myelocytes % (0-0) % Platelet Estimate (NORMAL) RBC Morphology ESR 2 (0-15) mm/hr PT (9.7-12.2) SECONDS INR APTT (21-34) SECONDS pO2 (30-55) mm/Hg VBG pH (7.32-7.43) VBG pCO2 (40-60) mmHg VBG HCO3 mmol/L VBG Total CO2 (22-28) mmol/L VBG O2 Sat (Calc) (40-65) % VBG Base Excess (0.0-2.0) mmol/L VBG Potassium (3.6-5.2) mmol/L Sodium (132-148) mmol/l Chloride (98-107) mmol/L Glucose (75-110) mg/dl Lactate (0.7-2.1) mmol/L Crit Value Called To Crit Value Called By Crit Value Read Back Blood Gas Notified Time Potassium (3.6-5.2) mmol/L Carbon Dioxide (22-30) mmol/L Anion Gap (10-20) BUN (9-20) mg/dL Creatinine (0.8-1.5) mg/dL Est GFR ( Amer) Est GFR (Non-Af Amer) POC Glucose (mg/dL) (65-110) mg/dL Random Glucose (75-110) mg/dL Lactic Acid (0.7-2.1) mmol/L Calcium (8.6-10.4) mg/dl Phosphorus (2.5-4.5) mg/dL Magnesium 1.8 (1.6-2.3) mg/dL Total Bilirubin (0.2-1.3) mg/dL AST (17-59) U/L ALT (21-72) U/L Alkaline Phosphatase (38-126) U/L Troponin I (0.00-0.120) ng/mL C-React Prot High Sens (1.00-3.00) mg/L NT-Pro-B Natriuret Pep (0-900) pg/mL Total Protein (6.3-8.3) g/dL Albumin (3.5-5.0) g/dL Globulin (2.2-3.9) gm/dL Albumin/Globulin Ratio (1.0-2.1) Procalcitonin 137.36 H (0.19-0.49) NG/ML Venous Blood Potassium (3.6-5.2) mmol/L Urine Color (YELLOW) Urine Clarity (Clear) Urine pH (5.0-8.0) Ur Specific [place] (1.003-1.030) Urine Protein (NEGATIVE) mg/dL Urine Glucose (UA) (Normal) mg/dL Urine Ketones (NEGATIVE) mg/dL Urine Blood (NEGATIVE) Urine Nitrate (NEGATIVE) Urine Bilirubin (NEGATIVE) Urine Urobilinogen (0.2-1.0) mg/dL Ur Leukocyte Esterase (Negative) Valeriano/uL Urine WBC (Auto) (0-5) /hpf Urine RBC (Auto) (0-3) /hpf Urine Bacteria (<OCC) 11/22/17 11/22/17 11/22/17 Range/Units 20:22 19:09 19:09 WBC (4.8-10.8) K/uL RBC (4.40-5.90) Mil/uL Hgb (12.0-18.0) g/dL Hct (35.0-51.0) % MCV (80.0-94.0) fL MCH (27.0-31.0) pg MCHC (33.0-37.0) g/dL RDW (11.5-14.5) % Plt Count (130-400) K/uL MPV (7.2-11.7) fL Neut % (Auto) (50.0-75.0) % Lymph % (Auto) (20.0-40.0) % Mckean % (Auto) (0.0-10.0) % Eos % (Auto) (0.0-4.0) % Baso % (Auto) (0.0-2.0) % Neut # (Auto) (1.8-7.0) K/uL Lymph # (Auto) (1.0-4.3) K/uL [place]ke[place] # (Auto) (0.0-0.8) K/uL Eos # (Auto) (0.0-0.7) K/uL Baso # (Auto) (0.0-0.2) K/uL Neutrophils % (Manual) (50-75) % Band Neutrophils % (0-2) % Lymphocytes % (Manual) (20-40) % Monocytes % (Manual) (0-10) % Eosinophils % (Manual) (0-4) % Metamyelocytes % (0-0) % Myelocytes % (0-0) % Platelet Estimate (NORMAL) RBC Morphology ESR (0-15) mm/hr PT 18.9 H (9.7-12.2) SECONDS INR 1.7 APTT 45 H (21-34) SECONDS pO2 19 L (30-55) mm/Hg VBG pH 7.35 (7.32-7.43) VBG pCO2 35 L (40-60) mmHg VBG HCO3 18.6 mmol/L VBG Total CO2 20.4 L (22-28) mmol/L VBG O2 Sat (Calc) 40.6 (40-65) % VBG Base Excess -5.6 L (0.0-2.0) mmol/L VBG Potassium 3.4 L (3.6-5.2) mmol/L Sodium 141.0 140 (132-148) mmol/l Chloride 111.0 H 106 (98-107) mmol/L Glucose 54 L (75-110) mg/dl Lactate 4.3 H* (0.7-2.1) mmol/L Crit Value Called To Annabella betts rn Crit Value Called By [place] Crit Value Read Back Y Blood Gas Notified Time 2024 Potassium 4.1 (3.6-5.2) mmol/L Carbon Dioxide 21 L (22-30) mmol/L Anion Gap 18 (10-20) BUN 33 H (9-20) mg/dL Creatinine 1.5 (0.8-1.5) mg/dL Est GFR ( Amer) 56 Est GFR (Non-Af Amer) 46 POC Glucose (mg/dL) (65-110) mg/dL Random Glucose 52 L (75-110) mg/dL Lactic Acid (0.7-2.1) mmol/L Calcium 8.6 (8.6-10.4) mg/dl Phosphorus (2.5-4.5) mg/dL Magnesium (1.6-2.3) mg/dL Total Bilirubin 6.2 H (0.2-1.3) mg/dL AST 342 H (17-59) U/L ALT 125 H D (21-72) U/L Alkaline Phosphatase 86 (38-126) U/L Troponin I 0.2330 H* (0.00-0.120) ng/mL C-React Prot High Sens (1.00-3.00) mg/L NT-Pro-B Natriuret Pep 3380 H (0-900) pg/mL Total Protein 5.9 L (6.3-8.3) g/dL Albumin 3.0 L D (3.5-5.0) g/dL Globulin 2.9 (2.2-3.9) gm/dL Albumin/Globulin Ratio 1.0 (1.0-2.1) Procalcitonin (0.19-0.49) NG/ML Venous Blood Potassium 3.4 L (3.6-5.2) mmol/L Urine Color (YELLOW) Urine Clarity (Clear) Urine pH (5.0-8.0) Ur Specific [place] (1.003-1.030) Urine Protein (NEGATIVE) mg/dL Urine Glucose (UA) (Normal) mg/dL Urine Ketones (NEGATIVE) mg/dL Urine Blood (NEGATIVE) Urine Nitrate (NEGATIVE) Urine Bilirubin (NEGATIVE) Urine Urobilinogen (0.2-1.0) mg/dL Ur Leukocyte Esterase (Negative) Valeriano/uL Urine WBC (Auto) (0-5) /hpf Urine RBC (Auto) (0-3) /hpf Urine Bacteria (<OCC) 11/22/17 11/22/17 Range/Units 19:09 00:45 WBC 15.0 H D (4.8-10.8) K/uL RBC 4.67 (4.40-5.90) Mil/uL Hgb 14.2 (12.0-18.0) g/dL Hct 42.2 (35.0-51.0) % MCV 90.3 D (80.0-94.0) fL MCH 30.4 (27.0-31.0) pg MCHC 33.7 (33.0-37.0) g/dL RDW 14.1 (11.5-14.5) % Plt Count 85 L D (130-400) K/uL MPV 9.6 (7.2-11.7) fL Neut % (Auto) 98.5 H (50.0-75.0) % Lymph % (Auto) 0.7 L (20.0-40.0) % Mckean % (Auto) 0.5 (0.0-10.0) % Eos % (Auto) 0.1 (0.0-4.0) % Baso % (Auto) 0.2 (0.0-2.0) % Neut # (Auto) 14.8 H (1.8-7.0) K/uL Lymph # (Auto) 0.1 L (1.0-4.3) K/uL Mcke[place] # (Auto) 0.1 (0.0-0.8) K/uL Eos # (Auto) 0.0 (0.0-0.7) K/uL Baso # (Auto) 0.0 (0.0-0.2) K/uL Neutrophils % (Manual) 60 (50-75) % Band Neutrophils % 23 H* (0-2) % Lymphocytes % (Manual) 1 L (20-40) % Monocytes % (Manual) 2 (0-10) % Eosinophils % (Manual) 1 (0-4) % Metamyelocytes % 8 H (0-0) % Myelocytes % 5 H (0-0) % Platelet Estimate Decreased L (NORMAL) RBC Morphology ESR (0-15) mm/hr PT (9.7-12.2) SECONDS INR APTT (21-34) SECONDS pO2 19 L (30-55) mm/Hg VBG pH 7.28 L (7.32-7.43) VBG pCO2 33 L (40-60) mmHg VBG HCO3 14.9 mmol/L VBG Total CO2 16.5 L (22-28) mmol/L VBG O2 Sat (Calc) 33.7 L (40-65) % VBG Base Excess -10.2 L (0.0-2.0) mmol/L VBG Potassium 3.1 L (3.6-5.2) mmol/L Sodium 143.0 (132-148) mmol/l Chloride 115.0 H (98-107) mmol/L Glucose 49 L (75-110) mg/dl Lactate 3.7 H (0.7-2.1) mmol/L Crit Value Called To Crit Value Called By Crit Value Read Back Blood Gas Notified Time Potassium (3.6-5.2) mmol/L Carbon Dioxide (22-30) mmol/L Anion Gap (10-20) BUN (9-20) mg/dL Creatinine (0.8-1.5) mg/dL Est GFR ( Amer) Est GFR (Non-Af Amer) POC Glucose (mg/dL) (65-110) mg/dL Random Glucose (75-110) mg/dL Lactic Acid (0.7-2.1) mmol/L Calcium (8.6-10.4) mg/dl Phosphorus (2.5-4.5) mg/dL Magnesium (1.6-2.3) mg/dL Total Bilirubin (0.2-1.3) mg/dL AST (17-59) U/L ALT (21-72) U/L Alkaline Phosphatase (38-126) U/L Troponin I (0.00-0.120) ng/mL C-React Prot High Sens (1.00-3.00) mg/L NT-Pro-B Natriuret Pep (0-900) pg/mL Total Protein (6.3-8.3) g/dL Albumin (3.5-5.0) g/dL Globulin (2.2-3.9) gm/dL Albumin/Globulin Ratio (1.0-2.1) Procalcitonin (0.19-0.49) NG/ML Venous Blood Potassium 3.1 L (3.6-5.2) mmol/L Urine Color (YELLOW) Urine Clarity (Clear) Urine pH (5.0-8.0) Ur Specific [place] (1.003-1.030) Urine Protein (NEGATIVE) mg/dL Urine Glucose (UA) (Normal) mg/dL Urine Ketones (NEGATIVE) mg/dL Urine Blood (NEGATIVE) Urine Nitrate (NEGATIVE) Urine Bilirubin (NEGATIVE) Urine Urobilinogen (0.2-1.0) mg/dL Ur Leukocyte Esterase (Negative) Valeriano/uL Urine WBC (Auto) (0-5) /hpf Urine RBC (Auto) (0-3) /hpf Urine Bacteria (<OCC) Laboratory Results - last 24 hr 11/22/17 11/22/17 11/22/17 00:45 19:09 19:09 WBC 15.0 H D RBC 4.67 Hgb 14.2 Hct 42.2 MCV 90.3 D MCH 30.4 MCHC 33.7 RDW 14.1 Plt Count 85 L D MPV 9.6 Neut % (Auto) 98.5 H Lymph % (Auto) 0.7 L Mckean % (Auto) 0.5 Eos % (Auto) 0.1 Baso % (Auto) 0.2 Neut # (Auto) 14.8 H Lymph # (Auto) 0.1 L Mckean # (Auto) 0.1 Eos # (Auto) 0.0 Baso # (Auto) 0.0 Neutrophils % (Manual) 60 Band Neutrophils % 23 H* Lymphocytes % (Manual) 1 L Monocytes % (Manual) 2 Eosinophils % (Manual) 1 Metamyelocytes % 8 H Myelocytes % 5 H Platelet Estimate Decreased L RBC Morphology ESR PT 18.9 H INR 1.7 APTT 45 H pO2 19 L VBG pH 7.28 L VBG pCO2 33 L VBG HCO3 14.9 VBG Total CO2 16.5 L VBG O2 Sat (Calc) 33.7 L VBG Base Excess -10.2 L VBG Potassium 3.1 L Sodium 143.0 Chloride 115.0 H Glucose 49 L Lactate 3.7 H Crit Value Called To Crit Value Called By Crit Value Read Back Blood Gas Notified Time Potassium Carbon Dioxide Anion Gap BUN Creatinine Est GFR ( Amer) Est GFR (Non-Af Amer) POC Glucose (mg/dL) Random Glucose Lactic Acid Calcium Phosphorus Magnesium Total Bilirubin AST ALT Alkaline Phosphatase Troponin I C-React Prot High Sens NT-Pro-B Natriuret Pep Total Protein Albumin Globulin Albumin/Globulin Ratio Procalcitonin Venous Blood Potassium 3.1 L Urine Color Urine Clarity Urine pH Ur Specific [place] Urine Protein Urine Glucose (UA) Urine Ketones Urine Blood Urine Nitrate Urine Bilirubin Urine Urobilinogen Ur Leukocyte Esterase Urine WBC (Auto) Urine RBC (Auto) Urine Bacteria 11/22/17 11/22/17 11/22/17 19:09 20:22 20:32 WBC RBC Hgb Hct MCV MCH MCHC RDW Plt Count MPV Neut % (Auto) Lymph % (Auto) [place] % (Auto) Eos % (Auto) Baso % (Auto) Neut # (Auto) Lymph # (Auto) [place]ke[place] # (Auto) Eos # (Auto) Baso # (Auto) Neutrophils % (Manual) Band Neutrophils % Lymphocytes % (Manual) Monocytes % (Manual) Eosinophils % (Manual) Metamyelocytes % Myelocytes % Platelet Estimate RBC Morphology ESR 2 PT INR APTT pO2 19 L VBG pH 7.35 VBG pCO2 35 L VBG HCO3 18.6 VBG Total CO2 20.4 L VBG O2 Sat (Calc) 40.6 VBG Base Excess -5.6 L VBG Potassium 3.4 L Sodium 140 141.0 Chloride 106 111.0 H Glucose 54 L Lactate 4.3 H* Crit Value Called To Annabella betts rn Crit Value Called By [place] Crit Value Read Back Y Blood Gas Notified Time 2024 Potassium 4.1 Carbon Dioxide 21 L Anion Gap 18 BUN 33 H Creatinine 1.5 Est GFR ( Amer) 56 Est GFR (Non-Af Amer) 46 POC Glucose (mg/dL) Random Glucose 52 L Lactic Acid Calcium 8.6 Phosphorus Magnesium Total Bilirubin 6.2 H AST 342 H ALT 125 H D Alkaline Phosphatase 86 Troponin I 0.2330 H* C-React Prot High Sens NT-Pro-B Natriuret Pep 3380 H Total Protein 5.9 L Albumin 3.0 L D Globulin 2.9 Albumin/Globulin Ratio 1.0 Procalcitonin Venous Blood Potassium 3.4 L Urine Color Urine Clarity Urine pH Ur Specific [place] Urine Protein Urine Glucose (UA) Urine Ketones Urine Blood Urine Nitrate Urine Bilirubin Urine Urobilinogen Ur Leukocyte Esterase Urine WBC (Auto) Urine RBC (Auto) Urine Bacteria 11/22/17 11/22/17 11/22/17 20:32 20:32 20:32 WBC RBC Hgb Hct MCV MCH MCHC RDW Plt Count MPV Neut % (Auto) Lymph % (Auto) [place] % (Auto) Eos % (Auto) Baso % (Auto) Neut # (Auto) Lymph # (Auto) [place] # (Auto) Eos # (Auto) Baso # (Auto) Neutrophils % (Manual) Band Neutrophils % Lymphocytes % (Manual) Monocytes % (Manual) Eosinophils % (Manual) Metamyelocytes % Myelocytes % Platelet Estimate RBC Morphology ESR PT INR APTT pO2 VBG pH VBG pCO2 VBG HCO3 VBG Total CO2 VBG O2 Sat (Calc) VBG Base Excess VBG Potassium Sodium Chloride Glucose Lactate Crit Value Called To Crit Value Called By Crit Value Read Back Blood Gas Notified Time Potassium Carbon Dioxide Anion Gap BUN Creatinine Est GFR ( Amer) Est GFR (Non-Af Amer) POC Glucose (mg/dL) Random Glucose Lactic Acid Calcium Phosphorus Magnesium 1.8 Total Bilirubin AST ALT Alkaline Phosphatase Troponin I C-React Prot High Sens > 15.00 H NT-Pro-B Natriuret Pep Total Protein Albumin Globulin Albumin/Globulin Ratio Procalcitonin 137.36 H Venous Blood Potassium Urine Color Urine Clarity Urine pH Ur Specific [place] Urine Protein Urine Glucose (UA) Urine Ketones Urine Blood Urine Nitrate Urine Bilirubin Urine Urobilinogen Ur Leukocyte Esterase Urine WBC (Auto) Urine RBC (Auto) Urine Bacteria 11/22/17 11/23/17 11/23/17 20:42 03:54 04:16 WBC RBC Hgb Hct MCV MCH MCHC RDW Plt Count MPV Neut % (Auto) Lymph % (Auto) [place] % (Auto) Eos % (Auto) Baso % (Auto) Neut # (Auto) Lymph # (Auto) Mcke[place] # (Auto) Eos # (Auto) Baso # (Auto) Neutrophils % (Manual) Band Neutrophils % Lymphocytes % (Manual) Monocytes % (Manual) Eosinophils % (Manual) Metamyelocytes % Myelocytes % Platelet Estimate RBC Morphology ESR PT INR APTT pO2 VBG pH VBG pCO2 VBG HCO3 VBG Total CO2 VBG O2 Sat (Calc) VBG Base Excess VBG Potassium Sodium Chloride Glucose Lactate Crit Value Called To Crit Value Called By Crit Value Read Back Blood Gas Notified Time Potassium Carbon Dioxide Anion Gap BUN Creatinine Est GFR ( Amer) Est GFR (Non-Af Amer) POC Glucose (mg/dL) 49 L 108 Random Glucose Lactic Acid Calcium Phosphorus Magnesium Total Bilirubin AST ALT Alkaline Phosphatase Troponin I C-React Prot High Sens NT-Pro-B Natriuret Pep Total Protein Albumin Globulin Albumin/Globulin Ratio Procalcitonin Venous Blood Potassium Urine Color Red Urine Clarity Hazy Urine pH 5.0 Ur Specific [place] 1.016 Urine Protein 2+ H Urine Glucose (UA) Normal Urine Ketones Trace Urine Blood 3+ H Urine Nitrate Negative Urine Bilirubin Negative Urine Urobilinogen Normal Ur Leukocyte Esterase 1+ H Urine WBC (Auto) 33 H Urine RBC (Auto) 3819 H Urine Bacteria Few H 11/23/17 11/23/17 11/23/17 05:48 07:01 07:01 WBC 33.2 H D RBC 4.40 Hgb 13.3 Hct 39.8 MCV 90.5 MCH 30.3 MCHC 33.5 RDW 14.5 Plt Count 83 L MPV 11.2 Neut % (Auto) 94.8 H Lymph % (Auto) 0.5 L [place]ke[place] % (Auto) 4.6 Eos % (Auto) 0.0 Baso % (Auto) 0.1 Neut # (Auto) 31.5 H Lymph # (Auto) 0.2 L [place] # (Auto) 1.5 H Eos # (Auto) 0.0 Baso # (Auto) 0.0 Neutrophils % (Manual) 74 Band Neutrophils % 21 H* Lymphocytes % (Manual) TEST NOT PERFORMED Monocytes % (Manual) 5 Eosinophils % (Manual) Metamyelocytes % Myelocytes % Platelet Estimate Decreased L RBC Morphology Normal ESR PT INR APTT pO2 VBG pH VBG pCO2 VBG HCO3 VBG Total CO2 VBG O2 Sat (Calc) VBG Base Excess VBG Potassium Sodium 142 Chloride 111 H Glucose Lactate Crit Value Called To Crit Value Called By Crit Value Read Back Blood Gas Notified Time Potassium 4.0 Carbon Dioxide 16 L Anion Gap 18 BUN 37 H Creatinine 1.8 H Est GFR ( Amer) 45 Est GFR (Non-Af Amer) 37 POC Glucose (mg/dL) 85 Random Glucose 62 L Lactic Acid Calcium 7.8 L Phosphorus 2.8 Magnesium 1.6 Total Bilirubin 2.2 H AST 401 H ALT 134 H Alkaline Phosphatase 65 Troponin I 0.3160 H* C-React Prot High Sens NT-Pro-B Natriuret Pep Total Protein 5.8 L Albumin 2.8 L Globulin 3.1 Albumin/Globulin Ratio 0.9 L Procalcitonin Venous Blood Potassium Urine Color Urine Clarity Urine pH Ur Specific [place] Urine Protein Urine Glucose (UA) Urine Ketones Urine Blood Urine Nitrate Urine Bilirubin Urine Urobilinogen Ur Leukocyte Esterase Urine WBC (Auto) Urine RBC (Auto) Urine Bacteria 11/23/17 11/23/17 11/23/17 07:01 08:42 08:44 WBC RBC Hgb Hct MCV MCH MCHC RDW Plt Count MPV Neut % (Auto) Lymph % (Auto) [place] % (Auto) Eos % (Auto) Baso % (Auto) Neut # (Auto) Lymph # (Auto) [place]ke[place] # (Auto) Eos # (Auto) Baso # (Auto) Neutrophils % (Manual) Band Neutrophils % Lymphocytes % (Manual) Monocytes % (Manual) Eosinophils % (Manual) Metamyelocytes % Myelocytes % Platelet Estimate RBC Morphology ESR PT INR APTT pO2 VBG pH VBG pCO2 VBG HCO3 VBG Total CO2 VBG O2 Sat (Calc) VBG Base Excess VBG Potassium Sodium Chloride Glucose Lactate Crit Value Called To Crit Value Called By Crit Value Read Back Blood Gas Notified Time Potassium Carbon Dioxide Anion Gap BUN Creatinine Est GFR ( Amer) Est GFR (Non-Af Amer) POC Glucose (mg/dL) 58 L 56 L Random Glucose Lactic Acid 5.0 H* Calcium Phosphorus Magnesium Total Bilirubin AST ALT Alkaline Phosphatase Troponin I C-React Prot High Sens NT-Pro-B Natriuret Pep Total Protein Albumin Globulin Albumin/Globulin Ratio Procalcitonin Venous Blood Potassium Urine Color Urine Clarity Urine pH Ur Specific [place] Urine Protein Urine Glucose (UA) Urine Ketones Urine Blood Urine Nitrate Urine Bilirubin Urine Urobilinogen Ur Leukocyte Esterase Urine WBC (Auto) Urine RBC (Auto) Urine Bacteria 11/23/17 11/23/17 11/23/17 09:13 12:08 12:09 WBC RBC Hgb Hct MCV MCH MCHC RDW Plt Count MPV Neut % (Auto) Lymph % (Auto) [place]ke[place] % (Auto) Eos % (Auto) Baso % (Auto) Neut # (Auto) Lymph # (Auto) Mcke[place] # (Auto) Eos # (Auto) Baso # (Auto) Neutrophils % (Manual) Band Neutrophils % Lymphocytes % (Manual) Monocytes % (Manual) Eosinophils % (Manual) Metamyelocytes % Myelocytes % Platelet Estimate RBC Morphology ESR PT INR APTT pO2 VBG pH VBG pCO2 VBG HCO3 VBG Total CO2 VBG O2 Sat (Calc) VBG Base Excess VBG Potassium Sodium Chloride Glucose Lactate Crit Value Called To Crit Value Called By Crit Value Read Back Blood Gas Notified Time Potassium Carbon Dioxide Anion Gap BUN Creatinine Est GFR ( Amer) Est GFR (Non-Af Amer) POC Glucose (mg/dL) 136 H 49 L 48 L Random Glucose Lactic Acid Calcium Phosphorus Magnesium Total Bilirubin AST ALT Alkaline Phosphatase Troponin I C-React Prot High Sens NT-Pro-B Natriuret Pep Total Protein Albumin Globulin Albumin/Globulin Ratio Procalcitonin Venous Blood Potassium Urine Color Urine Clarity Urine pH Ur Specific [place] Urine Protein Urine Glucose (UA) Urine Ketones Urine Blood Urine Nitrate Urine Bilirubin Urine Urobilinogen Ur Leukocyte Esterase Urine WBC (Auto) Urine RBC (Auto) Urine Bacteria 11/23/17 11/23/17 11/23/17 12:53 13:24 16:33 WBC RBC Hgb Hct MCV MCH MCHC RDW Plt Count MPV Neut % (Auto) Lymph % (Auto) [place] % (Auto) Eos % (Auto) Baso % (Auto) Neut # (Auto) Lymph # (Auto) [place]ke[place] # (Auto) Eos # (Auto) Baso # (Auto) Neutrophils % (Manual) Band Neutrophils % Lymphocytes % (Manual) Monocytes % (Manual) Eosinophils % (Manual) Metamyelocytes % Myelocytes % Platelet Estimate RBC Morphology ESR PT INR APTT pO2 VBG pH VBG pCO2 VBG HCO3 VBG Total CO2 VBG O2 Sat (Calc) VBG Base Excess VBG Potassium Sodium Chloride Glucose Lactate Crit Value Called To Crit Value Called By Crit Value Read Back Blood Gas Notified Time Potassium Carbon Dioxide Anion Gap BUN Creatinine Est GFR ( Amer) Est GFR (Non-Af Amer) POC Glucose (mg/dL) 89 34 L* Random Glucose Lactic Acid Calcium Phosphorus Magnesium Total Bilirubin AST ALT Alkaline Phosphatase Troponin I 0.3390 H* C-React Prot High Sens NT-Pro-B Natriuret Pep Total Protein Albumin Globulin Albumin/Globulin Ratio Procalcitonin Venous Blood Potassium Urine Color Urine Clarity Urine pH Ur Specific [place] Urine Protein Urine Glucose (UA) Urine Ketones Urine Blood Urine Nitrate Urine Bilirubin Urine Urobilinogen Ur Leukocyte Esterase Urine WBC (Auto) Urine RBC (Auto) Urine Bacteria 11/23/17 11/23/17 16:35 17:04 WBC RBC Hgb Hct MCV MCH MCHC RDW Plt Count MPV Neut % (Auto) Lymph % (Auto) [place] % (Auto) Eos % (Auto) Baso % (Auto) Neut # (Auto) Lymph # (Auto) [place]ke[place] # (Auto) Eos # (Auto) Baso # (Auto) Neutrophils % (Manual) Band Neutrophils % Lymphocytes % (Manual) Monocytes % (Manual) Eosinophils % (Manual) Metamyelocytes % Myelocytes % Platelet Estimate RBC Morphology ESR PT INR APTT pO2 VBG pH VBG pCO2 VBG HCO3 VBG Total CO2 VBG O2 Sat (Calc) VBG Base Excess VBG Potassium Sodium Chloride Glucose Lactate Crit Value Called To Crit Value Called By Crit Value Read Back Blood Gas Notified Time Potassium Carbon Dioxide Anion Gap BUN Creatinine Est GFR ( Amer) Est GFR (Non-Af Amer) POC Glucose (mg/dL) 29 L* 83 Random Glucose Lactic Acid Calcium Phosphorus Magnesium Total Bilirubin AST ALT Alkaline Phosphatase Troponin I C-React Prot High Sens NT-Pro-B Natriuret Pep Total Protein Albumin Globulin Albumin/Globulin Ratio Procalcitonin Venous Blood Potassium Urine Color Urine Clarity Urine pH Ur Specific [place] Urine Protein Urine Glucose (UA) Urine Ketones Urine Blood Urine Nitrate Urine Bilirubin Urine Urobilinogen Ur Leukocyte Esterase Urine WBC (Auto) Urine RBC (Auto) Urine Bacteria EKG/Cardiology Studies: Cardiology / EKG Studies 11/22/17 18:21 ELECTROCARDIOGRAM Stat Comment: Mode Of Transportation: BED Reason For Exam: Palpations 11/23/17 07:00 EKG [ELECTROCARDIOGRAM] Routine Comment: Mode Of Transportation: PORTABLE Reason For Exam: elevated troponin Critical Care Progress Note - Nutrition Nutrition: Nutrition Category Date Time Status Heart Healthy Diet [DIET] Diets 11/22/17 Dinner Active Attending/Attestation - Attestation I have personally seen and examined this patient.: Yes I have fully participated in the care of the patient.: Yes I have reviewed all pertinent clinical information: Yes Notes (Text): 11/23/17 17:21 patient seen and examined in the intensive care unit. 72-year-old white male, found to be hypotensive ,febrile with elevated lactic acid,troponin levels and leucocytosis with bandemia. urine culture positive for Escherichia coli ESBL IV antibiotics IV fluids Seen by urology and no further intervention
[2017-11-23] MEDS ORDERED: Albuterol-Ipratrop 3 mg / 0.5 (3 ml) UD INH PRN (12:33)
[2017-11-23] MEDS: Dextrose 50% SYRINGE Inj (50 ml) IV PRN ×3 (12:33→22:21)
[2017-11-23] MEDS: Meropenem 500 MG in Sodium Chloride 0.9% 100 ML IVPB SCH ×2 (12:41→23:10)
[2017-11-23] MEDS ORDERED: Magnesium Sulfate 1 gm in D5W 1 GM/100 ML BAG IVPB ONE (13:26)
--- NOTE | 2017-11-23 14:31 | CP.PCM.CON ---
Past Patient History - Infectious Disease Hx of Infectious Diseases: None - Tetanus Immunizations Tetanus Immunization: Unknown - Past Medical History & Family History Past Medical History?: Yes - Past Social History Smoking Status: Unknown If Ever Smoked - CARDIAC Hx Congestive Heart Failure: Yes Hx Hypercholesterolemia: Yes Hx Hypertension: Yes - PULMONARY Hx Asthma: Yes Hx Chronic Obstructive Pulmonary Disease (COPD): Yes - HEENT Hx HEENT Problems: Yes Hx Cataracts: Yes - RENAL Hx Chronic Kidney Disease: Yes (renal insufficiency) - INTEGUMENTARY Hx Dermatological Problems: No - GASTROINTESTINAL Hx Gastrointestinal Disorders: No - GENITOURINARY/GYNECOLOGICAL Hx Sexually Transmitted Disorders: No - PSYCHIATRIC Hx Anxiety: Yes Hx Bipolar Disorder: Yes Hx Depression: Yes Hx Schizophrenia: Yes Hx Substance Use: No - SURGICAL HISTORY Hx Tonsillectomy: Yes - ANESTHESIA Hx Anesthesia: Yes Hx Anesthesia Reactions: No Hx Malignant Hyperthermia: No Meds Allergies/Adverse Reactions: Allergies Allergy/AdvReac Type Severity Reaction Status Date / Time No Known Allergies Allergy Verified 11/22/17 17:13 - Medications Medications: Current Medications Acetaminophen (Tylenol 325mg Tab) 650 mg PO Q6 PRN PRN Reason: Fever >100.4 F Last Admin: 11/23/17 00:18 Dose: 650 mg Albuterol/Ipratropium (Duoneb 3 Mg/0.5 Mg (3 Ml) Ud) 3 ml INH RQ2 PRN PRN Reason: Shortness of Breath Dextrose (Dextrose 50% Inj) 50 ml IV Q2H PRN PRN Reason: Hypoglycemia Last Admin: 11/23/17 12:33 Dose: 50 ml Vancomycin HCl 1.25 gm/ Sodium (Chloride) 250 mls @ 166.667 mls/hr IVPB Q24H [facility]ANSHYAM PRN Reason: Protocol Last Admin: 11/23/17 09:35 Dose: 166.667 mls/hr Dextrose/Sodium Chloride (Dextrose 5%/0.9% Ns 1000 Ml) 1,000 mls @ 100 mls/hr IV .Q10H GHANSHYAM Last Admin: 11/23/17 09:47 Dose: 100 mls/hr Meropenem 500 mg/ Sodium (Chloride) 100 mls @ 100 mls/hr IVPB Q12H [facility]ANSHYAM PRN Reason: Protocol Last Admin: 11/23/17 12:41 Dose: 100 mls/hr Insulin Human Regular (Novolin R) 0 unit SC ACHS GHANSHYAM PRN Reason: Protocol Last Admin: 11/23/17 12:00 Dose: Not Given Lorazepam (Ativan) 1 mg IVP Q4H PRN PRN Reason: Anxiety Last Admin: 11/23/17 13:00 Dose: 1 mg Mirtazapine (Remeron) 15 mg PO QPM [facility] Mupirocin (Bactroban Ointment) 0 gm TOP DAILY [facility] Pantoprazole Sodium (Protonix Ec Tab) 40 mg PO DAILY [facility] Last Admin: 11/23/17 09:47 Dose: 40 mg Tamsulosin HCl (Flomax) 0.8 mg PO DAILY [facility] Last Admin: 11/23/17 09:47 Dose: 0.8 mg Valproate Sodium (Depakene Cap) 250 mg PO BID [facility] Last Admin: 11/23/17 09:47 Dose: 250 mg Results - Vital Signs Recent Vital Signs: Last Vital Signs Temp 98.4 F 11/23/17 12:00 Pulse 107 H 11/23/17 14:04 Resp 17 11/23/17 14:04 BP 83/46 L 11/23/17 14:04 Pulse Ox 91 L 11/23/17 14:04 - Labs Result Diagrams: 11/23/17 07:01 11/23/17 07:01 Labs: Laboratory Results - last 24 hr 11/22/17 11/22/17 11/22/17 00:45 19:09 19:09 WBC 15.0 H D RBC 4.67 Hgb 14.2 Hct 42.2 MCV 90.3 D MCH 30.4 MCHC 33.7 RDW 14.1 Plt Count 85 L D MPV 9.6 Neut % (Auto) 98.5 H Lymph % (Auto) 0.7 L [place] % (Auto) 0.5 Eos % (Auto) 0.1 Baso % (Auto) 0.2 Neut # (Auto) 14.8 H Lymph # (Auto) 0.1 L [place] # (Auto) 0.1 Eos # (Auto) 0.0 Baso # (Auto) 0.0 Neutrophils % (Manual) 60 Band Neutrophils % 23 H* Lymphocytes % (Manual) 1 L Monocytes % (Manual) 2 Eosinophils % (Manual) 1 Metamyelocytes % 8 H Myelocytes % 5 H Platelet Estimate Decreased L RBC Morphology ESR PT 18.9 H INR 1.7 APTT 45 H pO2 19 L VBG pH 7.28 L VBG pCO2 33 L VBG HCO3 14.9 VBG Total CO2 16.5 L VBG O2 Sat (Calc) 33.7 L VBG Base Excess -10.2 L VBG Potassium 3.1 L Sodium 143.0 Chloride 115.0 H Glucose 49 L Lactate 3.7 H Crit Value Called To Crit Value Called By Crit Value Read Back Blood Gas Notified Time Potassium Carbon Dioxide Anion Gap BUN Creatinine Est GFR ( Amer) Est GFR (Non-Af Amer) POC Glucose (mg/dL) Random Glucose Lactic Acid Calcium Phosphorus Magnesium Total Bilirubin AST ALT Alkaline Phosphatase Troponin I C-React Prot High Sens NT-Pro-B Natriuret Pep Total Protein Albumin Globulin Albumin/Globulin Ratio Procalcitonin Venous Blood Potassium 3.1 L Urine Color Urine Clarity Urine pH Ur Specific [place] Urine Protein Urine Glucose (UA) Urine Ketones Urine Blood Urine Nitrate Urine Bilirubin Urine Urobilinogen Ur Leukocyte Esterase Urine WBC (Auto) Urine RBC (Auto) Urine Bacteria 11/22/17 11/22/17 11/22/17 19:09 20:22 20:32 WBC RBC Hgb Hct MCV MCH MCHC RDW Plt Count MPV Neut % (Auto) Lymph % (Auto) [place] % (Auto) Eos % (Auto) Baso % (Auto) Neut # (Auto) Lymph # (Auto) [place] # (Auto) Eos # (Auto) Baso # (Auto) Neutrophils % (Manual) Band Neutrophils % Lymphocytes % (Manual) Monocytes % (Manual) Eosinophils % (Manual) Metamyelocytes % Myelocytes % Platelet Estimate RBC Morphology ESR 2 PT INR APTT pO2 19 L VBG pH 7.35 VBG pCO2 35 L VBG HCO3 18.6 VBG Total CO2 20.4 L VBG O2 Sat (Calc) 40.6 VBG Base Excess -5.6 L VBG Potassium 3.4 L Sodium 140 141.0 Chloride 106 111.0 H Glucose 54 L Lactate 4.3 H* Crit Value Called To Annabella betts rn Crit Value Called By [place] Crit Value Read Back Y Blood Gas Notified Time 2024 Potassium 4.1 Carbon Dioxide 21 L Anion Gap 18 BUN 33 H Creatinine 1.5 Est GFR ( Amer) 56 Est GFR (Non-Af Amer) 46 POC Glucose (mg/dL) Random Glucose 52 L Lactic Acid Calcium 8.6 Phosphorus Magnesium Total Bilirubin 6.2 H AST 342 H ALT 125 H D Alkaline Phosphatase 86 Troponin I 0.2330 H* C-React Prot High Sens NT-Pro-B Natriuret Pep 3380 H Total Protein 5.9 L Albumin 3.0 L D Globulin 2.9 Albumin/Globulin Ratio 1.0 Procalcitonin Venous Blood Potassium 3.4 L Urine Color Urine Clarity Urine pH Ur Specific [place] Urine Protein Urine Glucose (UA) Urine Ketones Urine Blood Urine Nitrate Urine Bilirubin Urine Urobilinogen Ur Leukocyte Esterase Urine WBC (Auto) Urine RBC (Auto) Urine Bacteria 11/22/17 11/22/17 11/22/17 20:32 20:32 20:32 WBC RBC Hgb Hct MCV MCH MCHC RDW Plt Count MPV Neut % (Auto) Lymph % (Auto) [place] % (Auto) Eos % (Auto) Baso % (Auto) Neut # (Auto) Lymph # (Auto) [place] # (Auto) Eos # (Auto) Baso # (Auto) Neutrophils % (Manual) Band Neutrophils % Lymphocytes % (Manual) Monocytes % (Manual) Eosinophils % (Manual) Metamyelocytes % Myelocytes % Platelet Estimate RBC Morphology ESR PT INR APTT pO2 VBG pH VBG pCO2 VBG HCO3 VBG Total CO2 VBG O2 Sat (Calc) VBG Base Excess VBG Potassium Sodium Chloride Glucose Lactate Crit Value Called To Crit Value Called By Crit Value Read Back Blood Gas Notified Time Potassium Carbon Dioxide Anion Gap BUN Creatinine Est GFR ( Amer) Est GFR (Non-Af Amer) POC Glucose (mg/dL) Random Glucose Lactic Acid Calcium Phosphorus Magnesium 1.8 Total Bilirubin AST ALT Alkaline Phosphatase Troponin I C-React Prot High Sens > 15.00 H NT-Pro-B Natriuret Pep Total Protein Albumin Globulin Albumin/Globulin Ratio Procalcitonin 137.36 H Venous Blood Potassium Urine Color Urine Clarity Urine pH Ur Specific [place] Urine Protein Urine Glucose (UA) Urine Ketones Urine Blood Urine Nitrate Urine Bilirubin Urine Urobilinogen Ur Leukocyte Esterase Urine WBC (Auto) Urine RBC (Auto) Urine Bacteria 11/22/17 11/23/17 11/23/17 20:42 03:54 04:16 WBC RBC Hgb Hct MCV MCH MCHC RDW Plt Count MPV Neut % (Auto) Lymph % (Auto) [place] % (Auto) Eos % (Auto) Baso % (Auto) Neut # (Auto) Lymph # (Auto) [place] # (Auto) Eos # (Auto) Baso # (Auto) Neutrophils % (Manual) Band Neutrophils % Lymphocytes % (Manual) Monocytes % (Manual) Eosinophils % (Manual) Metamyelocytes % Myelocytes % Platelet Estimate RBC Morphology ESR PT INR APTT pO2 VBG pH VBG pCO2 VBG HCO3 VBG Total CO2 VBG O2 Sat (Calc) VBG Base Excess VBG Potassium Sodium Chloride Glucose Lactate Crit Value Called To Crit Value Called By Crit Value Read Back Blood Gas Notified Time Potassium Carbon Dioxide Anion Gap BUN Creatinine Est GFR ( Amer) Est GFR (Non-Af Amer) POC Glucose (mg/dL) 49 L 108 Random Glucose Lactic Acid Calcium Phosphorus Magnesium Total Bilirubin AST ALT Alkaline Phosphatase Troponin I C-React Prot High Sens NT-Pro-B Natriuret Pep Total Protein Albumin Globulin Albumin/Globulin Ratio Procalcitonin Venous Blood Potassium Urine Color Red Urine Clarity Hazy Urine pH 5.0 Ur Specific [place] 1.016 Urine Protein 2+ H Urine Glucose (UA) Normal Urine Ketones Trace Urine Blood 3+ H Urine Nitrate Negative Urine Bilirubin Negative Urine Urobilinogen Normal Ur Leukocyte Esterase 1+ H Urine WBC (Auto) 33 H Urine RBC (Auto) 3819 H Urine Bacteria Few H 11/23/17 11/23/17 11/23/17 05:48 07:01 07:01 WBC 33.2 H D RBC 4.40 Hgb 13.3 Hct 39.8 MCV 90.5 MCH 30.3 MCHC 33.5 RDW 14.5 Plt Count 83 L MPV 11.2 Neut % (Auto) 94.8 H Lymph % (Auto) 0.5 L [place] % (Auto) 4.6 Eos % (Auto) 0.0 Baso % (Auto) 0.1 Neut # (Auto) 31.5 H Lymph # (Auto) 0.2 L [place] # (Auto) 1.5 H Eos # (Auto) 0.0 Baso # (Auto) 0.0 Neutrophils % (Manual) 74 Band Neutrophils % 21 H* Lymphocytes % (Manual) TEST NOT PERFORMED Monocytes % (Manual) 5 Eosinophils % (Manual) Metamyelocytes % Myelocytes % Platelet Estimate Decreased L RBC Morphology Normal ESR PT INR APTT pO2 VBG pH VBG pCO2 VBG HCO3 VBG Total CO2 VBG O2 Sat (Calc) VBG Base Excess VBG Potassium Sodium 142 Chloride 111 H Glucose Lactate Crit Value Called To Crit Value Called By Crit Value Read Back Blood Gas Notified Time Potassium 4.0 Carbon Dioxide 16 L Anion Gap 18 BUN 37 H Creatinine 1.8 H Est GFR ( Amer) 45 Est GFR (Non-Af Amer) 37 POC Glucose (mg/dL) 85 Random Glucose 62 L Lactic Acid Calcium 7.8 L Phosphorus 2.8 Magnesium 1.6 Total Bilirubin 2.2 H AST 401 H ALT 134 H Alkaline Phosphatase 65 Troponin I 0.3160 H* C-React Prot High Sens NT-Pro-B Natriuret Pep Total Protein 5.8 L Albumin 2.8 L Globulin 3.1 Albumin/Globulin Ratio 0.9 L Procalcitonin Venous Blood Potassium Urine Color Urine Clarity Urine pH Ur Specific [place] Urine Protein Urine Glucose (UA) Urine Ketones Urine Blood Urine Nitrate Urine Bilirubin Urine Urobilinogen Ur Leukocyte Esterase Urine WBC (Auto) Urine RBC (Auto) Urine Bacteria 11/23/17 11/23/17 11/23/17 07:01 08:42 08:44 WBC RBC Hgb Hct MCV MCH MCHC RDW Plt Count MPV Neut % (Auto) Lymph % (Auto) [place] % (Auto) Eos % (Auto) Baso % (Auto) Neut # (Auto) Lymph # (Auto) [place] # (Auto) Eos # (Auto) Baso # (Auto) Neutrophils % (Manual) Band Neutrophils % Lymphocytes % (Manual) Monocytes % (Manual) Eosinophils % (Manual) Metamyelocytes % Myelocytes % Platelet Estimate RBC Morphology ESR PT INR APTT pO2 VBG pH VBG pCO2 VBG HCO3 VBG Total CO2 VBG O2 Sat (Calc) VBG Base Excess VBG Potassium Sodium Chloride Glucose Lactate Crit Value Called To Crit Value Called By Crit Value Read Back Blood Gas Notified Time Potassium Carbon Dioxide Anion Gap BUN Creatinine Est GFR ( Amer) Est GFR (Non-Af Amer) POC Glucose (mg/dL) 58 L 56 L Random Glucose Lactic Acid 5.0 H* Calcium Phosphorus Magnesium Total Bilirubin AST ALT Alkaline Phosphatase Troponin I C-React Prot High Sens NT-Pro-B Natriuret Pep Total Protein Albumin Globulin Albumin/Globulin Ratio Procalcitonin Venous Blood Potassium Urine Color Urine Clarity Urine pH Ur Specific [place] Urine Protein Urine Glucose (UA) Urine Ketones Urine Blood Urine Nitrate Urine Bilirubin Urine Urobilinogen Ur Leukocyte Esterase Urine WBC (Auto) Urine RBC (Auto) Urine Bacteria 11/23/17 11/23/17 11/23/17 09:13 12:08 12:09 WBC RBC Hgb Hct MCV MCH MCHC RDW Plt Count MPV Neut % (Auto) Lymph % (Auto) [place] % (Auto) Eos % (Auto) Baso % (Auto) Neut # (Auto) Lymph # (Auto) [place] # (Auto) Eos # (Auto) Baso # (Auto) Neutrophils % (Manual) Band Neutrophils % Lymphocytes % (Manual) Monocytes % (Manual) Eosinophils % (Manual) Metamyelocytes % Myelocytes % Platelet Estimate RBC Morphology ESR PT INR APTT pO2 VBG pH VBG pCO2 VBG HCO3 VBG Total CO2 VBG O2 Sat (Calc) VBG Base Excess VBG Potassium Sodium Chloride Glucose Lactate Crit Value Called To Crit Value Called By Crit Value Read Back Blood Gas Notified Time Potassium Carbon Dioxide Anion Gap BUN Creatinine Est GFR ( Amer) Est GFR (Non-Af Amer) POC Glucose (mg/dL) 136 H 49 L 48 L Random Glucose Lactic Acid Calcium Phosphorus Magnesium Total Bilirubin AST ALT Alkaline Phosphatase Troponin I C-React Prot High Sens NT-Pro-B Natriuret Pep Total Protein Albumin Globulin Albumin/Globulin Ratio Procalcitonin Venous Blood Potassium Urine Color Urine Clarity Urine pH Ur Specific [place] Urine Protein Urine Glucose (UA) Urine Ketones Urine Blood Urine Nitrate Urine Bilirubin Urine Urobilinogen Ur Leukocyte Esterase Urine WBC (Auto) Urine RBC (Auto) Urine Bacteria 11/23/17 11/23/17 12:53 13:24 WBC RBC Hgb Hct MCV MCH MCHC RDW Plt Count MPV Neut % (Auto) Lymph % (Auto) [place] % (Auto) Eos % (Auto) Baso % (Auto) Neut # (Auto) Lymph # (Auto) [place] # (Auto) Eos # (Auto) Baso # (Auto) Neutrophils % (Manual) Band Neutrophils % Lymphocytes % (Manual) Monocytes % (Manual) Eosinophils % (Manual) Metamyelocytes % Myelocytes % Platelet Estimate RBC Morphology ESR PT INR APTT pO2 VBG pH VBG pCO2 VBG HCO3 VBG Total CO2 VBG O2 Sat (Calc) VBG Base Excess VBG Potassium Sodium Chloride Glucose Lactate Crit Value Called To Crit Value Called By Crit Value Read Back Blood Gas Notified Time Potassium Carbon Dioxide Anion Gap BUN Creatinine Est GFR ( Amer) Est GFR (Non-Af Amer) POC Glucose (mg/dL) 89 Random Glucose Lactic Acid Calcium Phosphorus Magnesium Total Bilirubin AST ALT Alkaline Phosphatase Troponin I 0.3390 H* C-React Prot High Sens NT-Pro-B Natriuret Pep Total Protein Albumin Globulin Albumin/Globulin Ratio Procalcitonin Venous Blood Potassium Urine Color Urine Clarity Urine pH Ur Specific [place] Urine Protein Urine Glucose (UA) Urine Ketones Urine Blood Urine Nitrate Urine Bilirubin Urine Urobilinogen Ur Leukocyte Esterase Urine WBC (Auto) Urine RBC (Auto) Urine Bacteria
--- NOTE | 2017-11-23 14:55 | CARD ---
APPROVED REPORT EXAM: Two-dimensional and M-mode echocardiogram with Doppler and color Doppler. Other Information Quality : GoodRhythm : INDICATION Peripheral Edema COPD POSITIVE TROPONIN RISK FACTORS Hypertension 2D DIMENSIONS IVSd1.1 (0.7-1.1cm)LVDd4.3 (3.9-5.9cm) PWd0.8 (0.7-1.1cm)LVDs3.1 (2.5-4.0cm) FS (%) 28.3 %LVEF (%)55.0 (>50%) M-Mode DIMENSIONS Left Atrium (MM)3.56 (2.5-4.0cm)Aortic Root3.39 (2.2-3.7cm) Aortic Cusp Exc.2.25 (1.5-2.0cm) Mitral Valve MV E Ovkbtqgm67.2cm/sMV A Zwcxahac83.3cm/sE/A ratio0.7 TDI E/Lateral E'0.0E/Medial E'0.0 Tricuspid Valve TR Peak [id number]/sTR Peak [id number] <Conclusion> poor window. la,lv & ra rv are normal size. normal lv wall motion,thickness,systolic & diastolic function with lvef of 55-60%. sclerotic probably bicuspid aortic valve but no as/ai. sclerotic mitral leaflets with trace mr. mild tr with normal pulmonary systolic pressures of 23 mm of hg. normal size sclerotic aortic root. no pericardial effusion.
--- NOTE | 2017-11-23 22:36 | CON ---
DATE: UROLOGIC ICU CONSULTATION BRIEF HISTORY: The patient is a 72-year-old white male, status post cystoscopy with bladder neck incision and insertion of a 16 [place] catheter on 11/22/2017 at [facility]. The patient was discharged back to his shelter rehab facility where the patient was disoriented, fell and was brought back to the [facility] Emergency Room where the patient was found to be septic and was started on IV Maxipime in the ER. His [place] catheter irrigated well without clots and was blood tinged. PHYSICAL EXAMINATION: GENERAL: His maximum temperature in the ER was 101, and the patient also besides being confused had abnormal troponin levels and was admitted to the ICU. The patient currently is being sedated because of his confusion and to prevent him from pulling out any tubes, especially the [place] catheter. The patient had a previous urinalysis as an outpatient, which showed E. coli ESBL sensitive to meropenem and ertapenem. The patient is now being started on meropenem IV antibiotics. The patient is currently sedated. VITAL SIGNS: His vital signs today showed a blood pressure of 125/97 and his pulse rate is around 92 and his respiratory rate is 29. O2 saturation on nasal cannula is 97%. ABDOMEN: Soft, nondistended, nontender. No CVA tenderness and no suprapubic tenderness. His 16 [place] catheter is now draining sylvester urine well without any clots. LABORATORY DATA: His laboratory evaluation shows a WBC count abiola from 15,000 to 33,200. His hemoglobin now is 13.3 and his hematocrit is 39.8. His platelet count is 83,000. His coag profile showed a PT of 18.9, INR of 1.7, and a PTT of 45. His chem profile today, 11/23/2017, shows a sodium of 142, potassium 4, chloride 111, CO2 is 16, BUN and creatinine now 37 and 1.8 respectively with a GFR of 37 indicating chronic kidney disease stage 3. His glucose was 85. Calcium 7.8 and lactic acid was 5.0, which is elevated. His troponin level was also elevated. His urinalysis from the emergency room: The color was red, clarity was hazy, pH was 5.0, specific gravity 1.016, protein 2+, glucose normal, ketones trace, blood 3+, nitrite negative, bilirubin negative, urobilinogen normal, leukocyte esterase 1+, 33 wbc's, 3819 rbc's with few bacteria per high power field. DIAGNOSTIC IMPRESSION: This patient most likely at this time has urosepsis. PLAN: Continue the patient on his current antibiotic regimen with consultation with ID and check his urine culture and sensitivity from the recovery room on 11/22/2017. Norman Chiang MD MTDD
[2017-11-23] MEDS ORDERED: Amikacin Sulfate 500 MG in Sodium Chloride 0.9% 250 ML IVPB ONE (23:00)
[2017-11-23 23:55] LABS: CALCIUM 7.6 mg/dl (8.6-10.4)
--- NOTE | 2017-11-23 23:57 | CP.PCM.PN ---
Subjective - Date & Time of Evaluation Date of Evaluation: 11/23/17 Time of Evaluation: 18:35 - Subjective Subjective: Pt is seen and evaluated at bedside, he is septic, confused, drowsy, received Ativan because of agitation, he is in distress but not in pain Objective - Vital Signs/Intake and Output Vital Signs (last 24 hours): Temp Pulse Resp BP Pulse Ox 98.5 F 108 H 28 H 113/65 94 L 11/23/17 20:00 11/23/17 23:28 11/23/17 23:28 11/23/17 23:28 11/23/17 23:28 Intake and Output: 11/23/17 11/24/17 18:59 06:59 Intake Total 1550 500 Output Total 550 350 Balance 1000 150 - Medications Medications: Current Medications Acetaminophen (Tylenol 325mg Tab) 650 mg PO Q6 PRN PRN Reason: Fever >100.4 F Last Admin: 11/23/17 00:18 Dose: 650 mg Albuterol/Ipratropium (Duoneb 3 Mg/0.5 Mg (3 Ml) Ud) 3 ml INH RQ2 PRN PRN Reason: Shortness of Breath Dextrose (Dextrose 50% Inj) 50 ml IV Q2H PRN PRN Reason: Hypoglycemia Last Admin: 11/23/17 22:21 Dose: 50 ml Vancomycin HCl 1.25 gm/ Sodium (Chloride) 250 mls @ 166.667 mls/hr IVPB Q24H GHANSHYAM PRN Reason: Protocol Last Admin: 11/23/17 09:35 Dose: 166.667 mls/hr Meropenem 500 mg/ Sodium (Chloride) 100 mls @ 100 mls/hr IVPB Q12H GHANSHYAM PRN Reason: Protocol Last Admin: 11/23/17 23:10 Dose: 100 mls/hr Amikacin Sulfate 500 mg/ (Sodium Chloride) 252 mls @ 250 mls/hr IVPB ONCE ONE PRN Reason: Protocol Stop: 11/24/17 00:00 Last Admin: 11/23/17 23:10 Dose: 250 mls/hr Dextrose (Dextrose 10% In Water) 1,000 mls @ 50 mls/hr IV .Q20H [facility] Last Admin: 11/23/17 23:05 Dose: 50 mls/hr Insulin Human Regular (Novolin R) 0 unit SC ACHS GHANSHYAM PRN Reason: Protocol Last Admin: 11/23/17 22:21 Dose: Not Given Lorazepam (Ativan) 1 mg IVP Q4H PRN PRN Reason: Anxiety Last Admin: 11/23/17 18:22 Dose: 1 mg Mirtazapine (Remeron) 15 mg PO QPM [facility] Last Admin: 11/23/17 17:39 Dose: 15 mg Mupirocin (Bactroban Ointment) 0 gm TOP DAILY [facility] Pantoprazole Sodium (Protonix Ec Tab) 40 mg PO DAILY [facility] Last Admin: 11/23/17 09:47 Dose: 40 mg Tamsulosin HCl (Flomax) 0.8 mg PO DAILY [facility] Last Admin: 11/23/17 09:47 Dose: 0.8 mg Valproate Sodium (Depakene Cap) 250 mg PO BID [facility] Last Admin: 11/23/17 17:39 Dose: 250 mg - Labs Labs: 11/23/17 07:01 11/23/17 07:01 PT 18.9 SECONDS (9.7-12.2) H 11/22/17 19:09 INR 1.7 11/22/17 19:09 APTT 45 SECONDS (21-34) H 11/22/17 19:09 - Constitutional Appears: No Acute Distress - Head Exam Head Exam: ATRAUMATIC, NORMAL INSPECTION, NORMOCEPHALIC - Eye Exam Eye Exam: EOMI, Normal appearance, PERRL Pupil Exam: NORMAL ACCOMODATION, PERRL - Respiratory Exam Respiratory Exam: Decreased Breath Sounds, Rales, Rhonchi - Cardiovascular Exam Cardiovascular Exam: REGULAR RHYTHM, +S1, +S2. absent: Murmur - GI/Abdominal Exam GI & Abdominal Exam: Soft, Normal Bowel Sounds. absent: Tenderness Assessment and Plan (1) Toxic metabolic encephalopathy Status: Acute (2) S/P cystoscopy Status: Acute (3) Sepsis Status: Acute (4) Leukocytosis Status: Acute (5) UTI (lower urinary tract infection) Status: Acute
--- NOTE | 2017-11-24 00:02 | CP.PCM.HP ---
History of Present Illness - History of Present Illness History of Present Illness: History of Present Illness: 72 y/o male with h/o Asthma, Benign Prostatic Hyperplasia Bipolar Disorder, CHF , COPD, Depression, HTN, Hypercholesterolemia, Schizophrenia presents to the ED following fall at shelter. patient had a cystoscopy today done with Dr. Chiang In ER he was given fentanyl for pain,later found to be hypotensive ,febrile with elevated lactic acid,troponin levels and leucocytosis with bandemia patient is confused unable to review of symptoms Past Patient History - Infectious Disease Hx of Infectious Diseases: None - Tetanus Immunizations Tetanus Immunization: Unknown - Past Medical History & Family History Past Medical History?: Yes - Past Social History Smoking Status: Unknown If Ever Smoked - CARDIAC Hx Congestive Heart Failure: Yes Hx Hypercholesterolemia: Yes Hx Hypertension: Yes - PULMONARY Hx Asthma: Yes Hx Chronic Obstructive Pulmonary Disease (COPD): Yes - HEENT Hx HEENT Problems: Yes Hx Cataracts: Yes - RENAL Hx Chronic Kidney Disease: Yes (renal insufficiency) - INTEGUMENTARY Hx Dermatological Problems: No - GASTROINTESTINAL Hx Gastrointestinal Disorders: No - GENITOURINARY/GYNECOLOGICAL Hx Sexually Transmitted Disorders: No - PSYCHIATRIC Hx Anxiety: Yes Hx Bipolar Disorder: Yes Hx Depression: Yes Hx Schizophrenia: Yes Hx Substance Use: No - SURGICAL HISTORY Hx Tonsillectomy: Yes - ANESTHESIA Hx Anesthesia: Yes Hx Anesthesia Reactions: No Hx Malignant Hyperthermia: No Meds Allergies/Adverse Reactions: Allergies Allergy/AdvReac Type Severity Reaction Status Date / Time No Known Allergies Allergy Verified 11/22/17 17:13 Results - Vital Signs Recent Vital Signs: Last Vital Signs Temp 98.5 F 11/23/17 20:00 Pulse 108 H 11/23/17 23:28 Resp 28 H 11/23/17 23:28 BP 113/65 11/23/17 23:28 Pulse Ox 94 L 11/23/17 23:28 - Labs Result Diagrams: 11/23/17 07:01 11/23/17 23:32 Labs: Laboratory Results - last 24 hr 11/22/17 11/23/17 11/23/17 00:45 03:54 04:16 WBC RBC Hgb Hct MCV MCH MCHC RDW Plt Count MPV Neut % (Auto) Lymph % (Auto) [place] % (Auto) Eos % (Auto) Baso % (Auto) Neut # (Auto) Lymph # (Auto) [place] # (Auto) Eos # (Auto) Baso # (Auto) Neutrophils % (Manual) Band Neutrophils % Lymphocytes % (Manual) Monocytes % (Manual) Platelet Estimate RBC Morphology pO2 19 L VBG pH 7.28 L VBG pCO2 33 L VBG HCO3 14.9 VBG Total CO2 16.5 L VBG O2 Sat (Calc) 33.7 L VBG Base Excess -10.2 L VBG Potassium 3.1 L Sodium 143.0 Chloride 115.0 H Glucose 49 L Lactate 3.7 H Potassium Carbon Dioxide Anion Gap BUN Creatinine Est GFR ( Amer) Est GFR (Non-Af Amer) POC Glucose (mg/dL) 49 L 108 Random Glucose Lactic Acid Calcium Phosphorus Magnesium Total Bilirubin AST ALT Alkaline Phosphatase Troponin I Total Protein Albumin Globulin Albumin/Globulin Ratio Venous Blood Potassium 3.1 L 11/23/17 11/23/17 11/23/17 05:48 07:01 07:01 WBC 33.2 H D RBC 4.40 Hgb 13.3 Hct 39.8 MCV 90.5 MCH 30.3 MCHC 33.5 RDW 14.5 Plt Count 83 L MPV 11.2 Neut % (Auto) 94.8 H Lymph % (Auto) 0.5 L [place] % (Auto) 4.6 Eos % (Auto) 0.0 Baso % (Auto) 0.1 Neut # (Auto) 31.5 H Lymph # (Auto) 0.2 L [place] # (Auto) 1.5 H Eos # (Auto) 0.0 Baso # (Auto) 0.0 Neutrophils % (Manual) 74 Band Neutrophils % 21 H* Lymphocytes % (Manual) TEST NOT PERFORMED Monocytes % (Manual) 5 Platelet Estimate Decreased L RBC Morphology Normal pO2 VBG pH VBG pCO2 VBG HCO3 VBG Total CO2 VBG O2 Sat (Calc) VBG Base Excess VBG Potassium Sodium 142 Chloride 111 H Glucose Lactate Potassium 4.0 Carbon Dioxide 16 L Anion Gap 18 BUN 37 H Creatinine 1.8 H Est GFR ( Amer) 45 Est GFR (Non-Af Amer) 37 POC Glucose (mg/dL) 85 Random Glucose 62 L Lactic Acid Calcium 7.8 L Phosphorus 2.8 Magnesium 1.6 Total Bilirubin 2.2 H AST 401 H ALT 134 H Alkaline Phosphatase 65 Troponin I 0.3160 H* Total Protein 5.8 L Albumin 2.8 L Globulin 3.1 Albumin/Globulin Ratio 0.9 L Venous Blood Potassium 11/23/17 11/23/17 11/23/17 07:01 08:42 08:44 WBC RBC Hgb Hct MCV MCH MCHC RDW Plt Count MPV Neut % (Auto) Lymph % (Auto) [place] % (Auto) Eos % (Auto) Baso % (Auto) Neut # (Auto) Lymph # (Auto) [place] # (Auto) Eos # (Auto) Baso # (Auto) Neutrophils % (Manual) Band Neutrophils % Lymphocytes % (Manual) Monocytes % (Manual) Platelet Estimate RBC Morphology pO2 VBG pH VBG pCO2 VBG HCO3 VBG Total CO2 VBG O2 Sat (Calc) VBG Base Excess VBG Potassium Sodium Chloride Glucose Lactate Potassium Carbon Dioxide Anion Gap BUN Creatinine Est GFR ( Amer) Est GFR (Non-Af Amer) POC Glucose (mg/dL) 58 L 56 L Random Glucose Lactic Acid 5.0 H* Calcium Phosphorus Magnesium Total Bilirubin AST ALT Alkaline Phosphatase Troponin I Total Protein Albumin Globulin Albumin/Globulin Ratio Venous Blood Potassium 11/23/17 11/23/17 11/23/17 09:13 12:08 12:09 WBC RBC Hgb Hct MCV MCH MCHC RDW Plt Count MPV Neut % (Auto) Lymph % (Auto) [place] % (Auto) Eos % (Auto) Baso % (Auto) Neut # (Auto) Lymph # (Auto) [place] # (Auto) Eos # (Auto) Baso # (Auto) Neutrophils % (Manual) Band Neutrophils % Lymphocytes % (Manual) Monocytes % (Manual) Platelet Estimate RBC Morphology pO2 VBG pH VBG pCO2 VBG HCO3 VBG Total CO2 VBG O2 Sat (Calc) VBG Base Excess VBG Potassium Sodium Chloride Glucose Lactate Potassium Carbon Dioxide Anion Gap BUN Creatinine Est GFR ( Amer) Est GFR (Non-Af Amer) POC Glucose (mg/dL) 136 H 49 L 48 L Random Glucose Lactic Acid Calcium Phosphorus Magnesium Total Bilirubin AST ALT Alkaline Phosphatase Troponin I Total Protein Albumin Globulin Albumin/Globulin Ratio Venous Blood Potassium 11/23/17 11/23/17 11/23/17 12:53 13:24 16:33 WBC RBC Hgb Hct MCV MCH MCHC RDW Plt Count MPV Neut % (Auto) Lymph % (Auto) [place] % (Auto) Eos % (Auto) Baso % (Auto) Neut # (Auto) Lymph # (Auto) [place] # (Auto) Eos # (Auto) Baso # (Auto) Neutrophils % (Manual) Band Neutrophils % Lymphocytes % (Manual) Monocytes % (Manual) Platelet Estimate RBC Morphology pO2 VBG pH VBG pCO2 VBG HCO3 VBG Total CO2 VBG O2 Sat (Calc) VBG Base Excess VBG Potassium Sodium Chloride Glucose Lactate Potassium Carbon Dioxide Anion Gap BUN Creatinine Est GFR ( Amer) Est GFR (Non-Af Amer) POC Glucose (mg/dL) 89 34 L* Random Glucose Lactic Acid Calcium Phosphorus Magnesium Total Bilirubin AST ALT Alkaline Phosphatase Troponin I 0.3390 H* Total Protein Albumin Globulin Albumin/Globulin Ratio Venous Blood Potassium 11/23/17 11/23/17 11/23/17 16:35 17:04 18:10 WBC RBC Hgb Hct MCV MCH MCHC RDW Plt Count MPV Neut % (Auto) Lymph % (Auto) [place] % (Auto) Eos % (Auto) Baso % (Auto) Neut # (Auto) Lymph # (Auto) [place] # (Auto) Eos # (Auto) Baso # (Auto) Neutrophils % (Manual) Band Neutrophils % Lymphocytes % (Manual) Monocytes % (Manual) Platelet Estimate RBC Morphology pO2 VBG pH VBG pCO2 VBG HCO3 VBG Total CO2 VBG O2 Sat (Calc) VBG Base Excess VBG Potassium Sodium Chloride Glucose Lactate Potassium Carbon Dioxide Anion Gap BUN Creatinine Est GFR ( Amer) Est GFR (Non-Af Amer) POC Glucose (mg/dL) 29 L* 83 45 L Random Glucose Lactic Acid Calcium Phosphorus Magnesium Total Bilirubin AST ALT Alkaline Phosphatase Troponin I Total Protein Albumin Globulin Albumin/Globulin Ratio Venous Blood Potassium 11/23/17 11/23/17 11/23/17 18:14 18:46 19:57 WBC RBC Hgb Hct MCV MCH MCHC RDW Plt Count MPV Neut % (Auto) Lymph % (Auto) [place] % (Auto) Eos % (Auto) Baso % (Auto) Neut # (Auto) Lymph # (Auto) [place] # (Auto) Eos # (Auto) Baso # (Auto) Neutrophils % (Manual) Band Neutrophils % Lymphocytes % (Manual) Monocytes % (Manual) Platelet Estimate RBC Morphology pO2 VBG pH VBG pCO2 VBG HCO3 VBG Total CO2 VBG O2 Sat (Calc) VBG Base Excess VBG Potassium Sodium Chloride Glucose Lactate Potassium Carbon Dioxide Anion Gap BUN Creatinine Est GFR ( Amer) Est GFR (Non-Af Amer) POC Glucose (mg/dL) 47 L 99 72 Random Glucose Lactic Acid Calcium Phosphorus Magnesium Total Bilirubin AST ALT Alkaline Phosphatase Troponin I Total Protein Albumin Globulin Albumin/Globulin Ratio Venous Blood Potassium 11/23/17 11/23/17 11/23/17 22:04 22:08 22:41 WBC RBC Hgb Hct MCV MCH MCHC RDW Plt Count MPV Neut % (Auto) Lymph % (Auto) [place] % (Auto) Eos % (Auto) Baso % (Auto) Neut # (Auto) Lymph # (Auto) [place] # (Auto) Eos # (Auto) Baso # (Auto) Neutrophils % (Manual) Band Neutrophils % Lymphocytes % (Manual) Monocytes % (Manual) Platelet Estimate RBC Morphology pO2 VBG pH VBG pCO2 VBG HCO3 VBG Total CO2 VBG O2 Sat (Calc) VBG Base Excess VBG Potassium Sodium Chloride Glucose Lactate Potassium Carbon Dioxide Anion Gap BUN Creatinine Est GFR ( Amer) Est GFR (Non-Af Amer) POC Glucose (mg/dL) 48 L 43 L 115 H Random Glucose Lactic Acid Calcium Phosphorus Magnesium Total Bilirubin AST ALT Alkaline Phosphatase Troponin I Total Protein Albumin Globulin Albumin/Globulin Ratio Venous Blood Potassium 11/23/17 11/23/17 23:32 23:53 WBC RBC Hgb Hct MCV MCH MCHC RDW Plt Count MPV Neut % (Auto) Lymph % (Auto) [place] % (Auto) Eos % (Auto) Baso % (Auto) Neut # (Auto) Lymph # (Auto) [place] # (Auto) Eos # (Auto) Baso # (Auto) Neutrophils % (Manual) Band Neutrophils % Lymphocytes % (Manual) Monocytes % (Manual) Platelet Estimate RBC Morphology pO2 VBG pH VBG pCO2 VBG HCO3 VBG Total CO2 VBG O2 Sat (Calc) VBG Base Excess VBG Potassium Sodium 139 Chloride 113 H Glucose Lactate Potassium 4.7 Carbon Dioxide 17 L Anion Gap 13 BUN 41 H Creatinine 1.6 H Est GFR ( Amer) 52 Est GFR (Non-Af Amer) 43 POC Glucose (mg/dL) 70 Random Glucose 82 Lactic Acid Calcium 7.6 L Phosphorus 3.0 Magnesium 2.0 Total Bilirubin AST ALT Alkaline Phosphatase Troponin I Total Protein Albumin Globulin Albumin/Globulin Ratio Venous Blood Potassium
[2017-11-24] MEDS: Dextrose 50% SYRINGE Inj (50 ml) IV PRN (02:04)
[2017-11-24 06:44] LABS: BASO # 0.2 K/uL (0.0-0.2); BASO % 0.5 % (0.0-2.0); EOS # 0.1 K/uL (0.0-0.7); EOS % 0.4 % (0.0-4.0); HEMOGLOBIN 12.5 g/dL (12.0-18.0); LYMPH # 0.4 K/uL (1.0-4.3); LYMPH % 1.2 % (20.0-40.0); MEAN CELL VOLUME 90.4 fL (80.0-94.0); MEAN CORPUSCULAR HEMOGLOBIN 30.6 pg (27.0-31.0); MEAN CORPUSCULAR HGB CONC 33.8 g/dL (33.0-37.0); MEAN PLATELET VOLUME 11.7 fL (7.2-11.7); MONO # 1.7 K/uL (0.0-0.8); MONO % 4.8 % (0.0-10.0); NEUT # 33.4 K/uL (1.8-7.0); NEUT % 93.1 % (50.0-75.0); PLATELET COUNT 69 K/uL (130-400); RBC 4.08 Mil/uL (4.40-5.90); WHITE BLOOD COUNT 35.9 K/uL (4.8-10.8)
[2017-11-24] MEDS: (Novolin R) Insulin Human Regular 100 units/ml vial SC SCH ×4 (07:31→23:17)
[2017-11-24 07:38] LABS: ALB/GLOB RATIO 0.8 (1.0-2.1); ALBUMIN 2.3 g/dL (3.5-5.0); CALCIUM 7.6 mg/dl (8.6-10.4)
[2017-11-24 09:03] LABS: BANDS 22 % (0-2); EOSINOPHIL 3 % (0-4); LYMPHOCYTE 4 % (20-40); MONOCYTE 6 % (0-10); NEUTROPHIL 65 % (50-75); TOTAL CELLS COUNTED 100
[2017-11-24 09:04] LABS: ANISOCYTOSIS SLIGHT; PLATELET ESTIMATE DECREASED (NORMAL)
[2017-11-24 09:05] LABS: BURR CELLS SLIGHT
[2017-11-24] MEDS: Pantoprazole 40 mg EC Tab PO SCH ×2 (09:32→11:00)
[2017-11-24] MEDS ORDERED: Sodium Chloride 0.9% 500 ML IV ONE (10:12)
[2017-11-24] MEDS: Dextrose 5%/0.9% NS 1,000 ML IV SCH ×2 (11:39→20:42)
--- NOTE | 2017-11-24 12:40 | CP.PCM.CON ---
History of Present Illness - History of Present Illness History of Present Illness: Patient has been seen examined. Patient is a 72 year old male with PMH HTN who presents with altered mental status. Patient has been found to be septic. He was started on antibiotic therapy. the patient was noted to have elevated troponin. He otherwise appears comfortable. Review of Systems - Review of Systems Systems not reviewed;Unavailable: Altered Mental Status Past Patient History - Infectious Disease Hx of Infectious Diseases: None - Tetanus Immunizations Tetanus Immunization: Unknown - Past Medical History & Family History Past Medical History?: Yes - Past Social History Smoking Status: Unknown If Ever Smoked - CARDIAC Hx Congestive Heart Failure: Yes Hx Hypercholesterolemia: Yes Hx Hypertension: Yes - PULMONARY Hx Asthma: Yes Hx Chronic Obstructive Pulmonary Disease (COPD): Yes - HEENT Hx HEENT Problems: Yes Hx Cataracts: Yes - RENAL Hx Chronic Kidney Disease: Yes (renal insufficiency) - INTEGUMENTARY Hx Dermatological Problems: No - GASTROINTESTINAL Hx Gastrointestinal Disorders: No - GENITOURINARY/GYNECOLOGICAL Hx Sexually Transmitted Disorders: No - PSYCHIATRIC Hx Anxiety: Yes Hx Bipolar Disorder: Yes Hx Depression: Yes Hx Schizophrenia: Yes Hx Substance Use: No - SURGICAL HISTORY Hx Tonsillectomy: Yes - ANESTHESIA Hx Anesthesia: Yes Hx Anesthesia Reactions: No Hx Malignant Hyperthermia: No Meds Allergies/Adverse Reactions: Allergies Allergy/AdvReac Type Severity Reaction Status Date / Time No Known Allergies Allergy Verified 11/22/17 17:13 - Medications Medications: Current Medications Albuterol/Ipratropium (Duoneb 3 Mg/0.5 Mg (3 Ml) Ud) 3 ml INH RQ2 PRN PRN Reason: Shortness of Breath Dextrose (Dextrose 50% Inj) 50 ml IV Q2H PRN PRN Reason: Hypoglycemia Last Admin: 11/24/17 02:04 Dose: 50 ml Vancomycin HCl 1.25 gm/ Sodium (Chloride) 250 mls @ 166.667 mls/hr IVPB Q24H [facility] PRN Reason: Protocol Last Admin: 11/24/17 09:33 Dose: 166.667 mls/hr Meropenem 500 mg/ Sodium (Chloride) 100 mls @ 100 mls/hr IVPB Q12H [facility] PRN Reason: Protocol Last Admin: 11/23/17 23:10 Dose: 100 mls/hr Dextrose/Sodium Chloride (Dextrose 5%/0.9% Ns 1000 Ml) 1,000 mls @ 100 mls/hr IV .Q10H [facility] Last Admin: 11/24/17 11:39 Dose: 100 mls/hr Insulin Human Regular (Novolin R) 0 unit SC ACHS [facility] PRN Reason: Protocol Last Admin: 11/24/17 07:31 Dose: Not Given Lorazepam (Ativan) 1 mg IVP Q4H PRN PRN Reason: Anxiety Last Admin: 11/24/17 06:49 Dose: 1 mg Mirtazapine (Remeron) 15 mg PO QPM [facility] Last Admin: 11/23/17 17:39 Dose: 15 mg Mupirocin (Bactroban Ointment) 0 gm TOP DAILY [facility] Last Admin: 11/24/17 09:31 Dose: 1 applic Pantoprazole Sodium (Protonix Ec Tab) 40 mg PO DAILY [facility] Last Admin: 11/24/17 09:32 Dose: Not Given Tamsulosin HCl (Flomax) 0.8 mg PO DAILY [facility] Last Admin: 11/24/17 09:32 Dose: Not Given Valproate Sodium (Depakene Cap) 250 mg PO BID [facility] Last Admin: 11/24/17 09:32 Dose: Not Given Physical Exam - Constitutional Appears: Non-toxic - Head Exam Head Exam: NORMAL INSPECTION - Eye Exam Eye Exam: Normal appearance - ENT Exam ENT Exam: Mucous Membranes Moist - Neck Exam Neck exam: Positive for: Full Rom - Respiratory Exam Respiratory Exam: Decreased Breath Sounds - Cardiovascular Exam Cardiovascular Exam: REGULAR RHYTHM - GI/Abdominal Exam GI & Abdominal Exam: Normal Bowel Sounds - Rectal Exam Rectal Exam: Deferred - Extremities Exam Extremities exam: Negative for: pedal edema - Back Exam Back exam: NORMAL INSPECTION - Skin Skin Exam: Normal Color Results - Vital Signs Recent Vital Signs: Last Vital Signs Temp 98.6 F 11/24/17 08:00 Pulse 99 H 11/24/17 11:00 Resp 26 H 11/24/17 11:00 BP 123/72 11/24/17 11:00 Pulse Ox 3 L 11/24/17 11:00 - Labs Result Diagrams: 11/24/17 06:28 11/24/17 07:23 Labs: Laboratory Results - last 24 hr 11/23/17 11/23/17 11/23/17 12:53 13:24 16:33 WBC RBC Hgb Hct MCV MCH MCHC RDW Plt Count MPV Neut % (Auto) Lymph % (Auto) [place] % (Auto) Eos % (Auto) Baso % (Auto) Neut # (Auto) Lymph # (Auto) [place] # (Auto) Eos # (Auto) Baso # (Auto) Neutrophils % (Manual) Band Neutrophils % Lymphocytes % (Manual) Monocytes % (Manual) Eosinophils % (Manual) Platelet Estimate Anisocytosis (manual) [place] Cells Sodium Potassium Chloride Carbon Dioxide Anion Gap BUN Creatinine Est GFR ( Amer) Est GFR (Non-Af Amer) POC Glucose (mg/dL) 89 34 L* Random Glucose Calcium Phosphorus Magnesium Total Bilirubin AST ALT Alkaline Phosphatase Troponin I 0.3390 H* Total Protein Albumin Globulin Albumin/Globulin Ratio 11/23/17 11/23/17 11/23/17 16:35 17:04 18:10 WBC RBC Hgb Hct MCV MCH MCHC RDW Plt Count MPV Neut % (Auto) Lymph % (Auto) [place] % (Auto) Eos % (Auto) Baso % (Auto) Neut # (Auto) Lymph # (Auto) [place] # (Auto) Eos # (Auto) Baso # (Auto) Neutrophils % (Manual) Band Neutrophils % Lymphocytes % (Manual) Monocytes % (Manual) Eosinophils % (Manual) Platelet Estimate Anisocytosis (manual) [place] Cells Sodium Potassium Chloride Carbon Dioxide Anion Gap BUN Creatinine Est GFR ( Amer) Est GFR (Non-Af Amer) POC Glucose (mg/dL) 29 L* 83 45 L Random Glucose Calcium Phosphorus Magnesium Total Bilirubin AST ALT Alkaline Phosphatase Troponin I Total Protein Albumin Globulin Albumin/Globulin Ratio 11/23/17 11/23/17 11/23/17 18:14 18:46 19:57 WBC RBC Hgb Hct MCV MCH MCHC RDW Plt Count MPV Neut % (Auto) Lymph % (Auto) [place] % (Auto) Eos % (Auto) Baso % (Auto) Neut # (Auto) Lymph # (Auto) [place] # (Auto) Eos # (Auto) Baso # (Auto) Neutrophils % (Manual) Band Neutrophils % Lymphocytes % (Manual) Monocytes % (Manual) Eosinophils % (Manual) Platelet Estimate Anisocytosis (manual) [place] Cells Sodium Potassium Chloride Carbon Dioxide Anion Gap BUN Creatinine Est GFR ( Amer) Est GFR (Non-Af Amer) POC Glucose (mg/dL) 47 L 99 72 Random Glucose Calcium Phosphorus Magnesium Total Bilirubin AST ALT Alkaline Phosphatase Troponin I Total Protein Albumin Globulin Albumin/Globulin Ratio 11/23/17 11/23/17 11/23/17 22:04 22:08 22:41 WBC RBC Hgb Hct MCV MCH MCHC RDW Plt Count MPV Neut % (Auto) Lymph % (Auto) [place] % (Auto) Eos % (Auto) Baso % (Auto) Neut # (Auto) Lymph # (Auto) [place] # (Auto) Eos # (Auto) Baso # (Auto) Neutrophils % (Manual) Band Neutrophils % Lymphocytes % (Manual) Monocytes % (Manual) Eosinophils % (Manual) Platelet Estimate Anisocytosis (manual) [place] Cells Sodium Potassium Chloride Carbon Dioxide Anion Gap BUN Creatinine Est GFR ( Amer) Est GFR (Non-Af Amer) POC Glucose (mg/dL) 48 L 43 L 115 H Random Glucose Calcium Phosphorus Magnesium Total Bilirubin AST ALT Alkaline Phosphatase Troponin I Total Protein Albumin Globulin Albumin/Globulin Ratio 11/23/17 11/23/17 11/24/17 23:32 23:53 02:00 WBC RBC Hgb Hct MCV MCH MCHC RDW Plt Count MPV Neut % (Auto) Lymph % (Auto) [place] % (Auto) Eos % (Auto) Baso % (Auto) Neut # (Auto) Lymph # (Auto) [place] # (Auto) Eos # (Auto) Baso # (Auto) Neutrophils % (Manual) Band Neutrophils % Lymphocytes % (Manual) Monocytes % (Manual) Eosinophils % (Manual) Platelet Estimate Anisocytosis (manual) [place] Cells Sodium 139 Potassium 4.7 Chloride 113 H Carbon Dioxide 17 L Anion Gap 13 BUN 41 H Creatinine 1.6 H Est GFR ( Amer) 52 Est GFR (Non-Af Amer) 43 POC Glucose (mg/dL) 70 51 L Random Glucose 82 Calcium 7.6 L Phosphorus 3.0 Magnesium 2.0 Total Bilirubin AST ALT Alkaline Phosphatase Troponin I Total Protein Albumin Globulin Albumin/Globulin Ratio 11/24/17 11/24/17 11/24/17 02:02 02:34 04:00 WBC RBC Hgb Hct MCV MCH MCHC RDW Plt Count MPV Neut % (Auto) Lymph % (Auto) [place] % (Auto) Eos % (Auto) Baso % (Auto) Neut # (Auto) Lymph # (Auto) [place] # (Auto) Eos # (Auto) Baso # (Auto) Neutrophils % (Manual) Band Neutrophils % Lymphocytes % (Manual) Monocytes % (Manual) Eosinophils % (Manual) Platelet Estimate Anisocytosis (manual) [place] Cells Sodium Potassium Chloride Carbon Dioxide Anion Gap BUN Creatinine Est GFR ( Amer) Est GFR (Non-Af Amer) POC Glucose (mg/dL) 55 L 114 H 78 Random Glucose Calcium Phosphorus Magnesium Total Bilirubin AST ALT Alkaline Phosphatase Troponin I Total Protein Albumin Globulin Albumin/Globulin Ratio 11/24/17 11/24/17 11/24/17 05:58 06:28 07:23 WBC 35.9 H RBC 4.08 L Hgb 12.5 Hct 36.9 MCV 90.4 MCH 30.6 MCHC 33.8 RDW 15.0 H Plt Count 69 L MPV 11.7 Neut % (Auto) 93.1 H Lymph % (Auto) 1.2 L [place] % (Auto) 4.8 Eos % (Auto) 0.4 Baso % (Auto) 0.5 Neut # (Auto) 33.4 H Lymph # (Auto) 0.4 L [place] # (Auto) 1.7 H Eos # (Auto) 0.1 Baso # (Auto) 0.2 Neutrophils % (Manual) 65 Band Neutrophils % 22 H* Lymphocytes % (Manual) 4 L Monocytes % (Manual) 6 Eosinophils % (Manual) 3 Platelet Estimate Decreased L Anisocytosis (manual) Slight [place] Cells Slight Sodium 141 Potassium 4.6 Chloride 114 H Carbon Dioxide 20 L Anion Gap 12 BUN 42 H Creatinine 1.6 H Est GFR ( Amer) 52 Est GFR (Non-Af Amer) 43 POC Glucose (mg/dL) 76 Random Glucose 77 Calcium 7.6 L Phosphorus 2.9 Magnesium 2.0 Total Bilirubin 1.8 H AST 480 H ALT 128 H Alkaline Phosphatase 58 Troponin I Total Protein 5.0 L Albumin 2.3 L Globulin 2.8 Albumin/Globulin Ratio 0.8 L 11/24/17 11/24/17 11/24/17 08:00 09:57 12:01 WBC RBC Hgb Hct MCV MCH MCHC RDW Plt Count MPV Neut % (Auto) Lymph % (Auto) [place] % (Auto) Eos % (Auto) Baso % (Auto) Neut # (Auto) Lymph # (Auto) [place] # (Auto) Eos # (Auto) Baso # (Auto) Neutrophils % (Manual) Band Neutrophils % Lymphocytes % (Manual) Monocytes % (Manual) Eosinophils % (Manual) Platelet Estimate Anisocytosis (manual) [place] Cells Sodium Potassium Chloride Carbon Dioxide Anion Gap BUN Creatinine Est GFR ( Amer) Est GFR (Non-Af Amer) POC Glucose (mg/dL) 75 85 98 Random Glucose Calcium Phosphorus Magnesium Total Bilirubin AST ALT Alkaline Phosphatase Troponin I Total Protein Albumin Globulin Albumin/Globulin Ratio - EKG Data EKG Interpreted by: Myself Assessment & Plan (1) Elevated troponin Assessment and Plan: patient's elevated toponin is likley demand ischemia due to sepsis. I recommend conservative medical therapy. Status: Acute (2) Septic shock Assessment and Plan: conitnue antibiotics Status: Acute
[2017-11-24] MEDS: Meropenem 500 MG in Sodium Chloride 0.9% 100 ML IVPB SCH (13:00)
--- NOTE | 2017-11-24 13:08 | PN ---
DATE: 11/24/2017 TIME OF FOLLOWUP: Roughly 10:30 a.m. The patient is currently sedated at the bedside in the ICU. His 16-German [place] catheter is draining sylvester urine well without any clots. PHYSICAL EXAMINATION: ABDOMEN: Soft, nondistended, nontender. No CVA tenderness. No suprapubic tenderness at this hour. However, laboratory stephens, the patient is septic and in septic shock at this time. Currently on IV meropenem for presumed E. coli ESBL. The patient's postop urine culture from the recovery room showed no growth. His blood cultures from the ER on 11/22/2017 now show positive Gram-negative rods. His platelet count continues to drop and is now at 59,000. His coag profile remains relatively slightly elevated and stable at this time and his creatinine has improved with IV fluid hydration, down from 1.8 to 1.6 today. This case was discussed with the metrology specialist, Dr. Denilson Mejia. DIAGNOSTIC IMPRESSION: On this patient is postoperative urosepsis. PLAN: To continue the patient on his IV meropenem at this hour, pending the blood culture organism and sensitivity report. Norman Chiang MD
--- NOTE | 2017-11-24 14:01 | CARD ---
APPROVED REPORT EKG Measurement Heart [id number] <Conclusion> Suspect arm lead reversal, interpretation assumes no reversal Normal sinus rhythm Abnormal ECG
[2017-11-24 17:29] LABS: ABG ALLEN TEST UNABLE; ARTERIAL BLOOD GAS HCO3 20.8 mmol/L (21-28); ARTERIAL BLOOD GAS O2 SAT 99.3 % (95-98); ARTERIAL BLOOD GAS PCO2 33 mm/Hg (35-45); ARTERIAL BLOOD GAS PH 7.37 (7.35-7.45); ARTERIAL BLOOD GAS PO2 98 mm/Hg (80-100); ARTERIAL BLOOD GAS TCO2 20.1 mmol/L (22-28)
--- NOTE | 2017-11-24 18:15 | CP.CCUPN ---
<Judie Corrales - Last Filed: 11/24/17 18:08> CCU Subjective - Physician Review Subjective (Free Text): Patient is been seen and examined at bedside. ROS unavailable due to patient's mental status. Patient is very lethargic CCU Objective - Vital Signs / Intake & Output Vital Signs (Last 4 hours): Vital Signs Temp Pulse Resp BP Pulse Ox 11/24/17 18:00 96 H 23 106/52 L 97 11/24/17 17:00 100.3 F H 97 H 24 105/62 97 11/24/17 16:00 99.2 F 95 H 25 H 109/66 96 11/24/17 15:00 95 H 32 H 101/57 L 96 Intake and Output (Last 8hrs): Intake & Output 11/24/17 11/24/17 11/24/17 06:59 14:59 22:59 Intake Total 700 1470 500 Output Total 480 Balance 220 1470 500 Weight 211 lb Intake: Intake, IV Amount 700 1150 500 Left Antecubital 700 1150 400 Right Wrist 100 Oral 320 Output: Urine 480 Urethral (Ahwk) 480 Other: # Bowel Movements 1 - Physical Exam Head: Positive for: Atraumatic, Normocephalic Extroacular Muscles: Positive for: EOMI Conjunctiva: Positive for: Normal Respiratory/Chest: Positive for: Clear to Auscultation Cardiovascular: Positive for: Normal S1, S2. Negative for: Bradycardic Abdomen: Positive for: Normal Bowel Sounds. Negative for: Tenderness, Distention Lower Extremity: Positive for: Other (B/L Lower Ext. Erythema. Skin is Dry. Traumatic avulsion of the left 2nd toenail) Psychiatric: Positive for: Alert, Agitated - Medications Active Medications: Active Medications Generic Name Dose Route Start Last Admin Trade Name Freq PRN Reason Stop Dose Admin Albuterol/Ipratropium 3 ml 11/23/17 12:33 Duoneb 3 Mg/0.5 Mg (3 Ml) Ud INH RQ2 PRN Shortness of Breath Dextrose 50 ml 11/23/17 12:09 11/24/17 02:04 Dextrose 50% Inj IV 50 ml Q2H PRN Administration Hypoglycemia Vancomycin HCl 1.25 gm/ Sodium 250 mls @ 166.667 mls/hr 11/23/17 09:30 09:33 Chloride IVPB 166.667 mls/hr Q24H GHANSHYAM Administration Protocol Meropenem 500 mg/ Sodium 100 mls @ 100 mls/hr 11/23/17 12:00 11/24/17 13:00 Chloride IVPB 100 mls/hr Q12H GHANSHYAM Administration Protocol Dextrose/Sodium Chloride 1,000 mls @ 100 mls/hr 11/24/17 10:30 11/24/17 11:39 Dextrose 5%/0.9% Ns 1000 Ml IV 100 mls/hr .Q10H GHANSHYAM Administration Insulin Human Regular 0 unit 11/23/17 07:30 11/24/17 16:30 Novolin R SC Not Given ACHS GHANSHYAM Protocol Lorazepam 1 mg 11/23/17 12:46 11/24/17 06:49 Ativan IVP 1 mg Q4H PRN Administration Anxiety Mirtazapine 15 mg 11/23/17 18:00 11/24/17 17:41 Remeron PO Not Given QPM GHANSHYAM Mupirocin 0 gm 11/24/17 10:00 11/24/17 09:31 Bactroban Ointment TOP 1 applic DAILY GHANSHYAM Administration Pantoprazole Sodium 40 mg 11/23/17 10:00 11/24/17 11:00 Protonix Ec Tab PO 40 mg DAILY GHANSHYAM Administration Tamsulosin HCl 0.8 mg 11/23/17 10:00 11/24/17 13:21 Flomax PO 0.8 mg DAILY GHANSHYAM Administration Valproate Sodium 250 mg 11/23/17 10:00 11/24/17 17:40 Depakene Cap PO Not Given BID GHANSHYAM - Patient Studies Lab Studies: Microbiology Studies 11/23/17 00:53 MRSA Culture (Admit) - Final Naris MRSA NOT DETECTED 11/22/17 21:14 Urine Culture - Final Urine,Catheterized No Growth (<1,000 CFU/ML) 11/22/17 23:10 Blood Culture - Preliminary Blood NO GROWTH AFTER 24 HOURS 11/22/17 23:10 Blood Culture - Preliminary Blood Gram Negative Branden Gram Stain - Final Lab Studies 11/24/17 11/24/17 11/24/17 Range/Units 18:03 17:26 16:02 WBC (4.8-10.8) K/uL RBC (4.40-5.90) Mil/uL Hgb (12.0-18.0) g/dL Hct (35.0-51.0) % MCV (80.0-94.0) fL MCH (27.0-31.0) pg MCHC (33.0-37.0) g/dL RDW (11.5-14.5) % Plt Count (130-400) K/uL MPV (7.2-11.7) fL Neut % (Auto) (50.0-75.0) % Lymph % (Auto) (20.0-40.0) % Mason % (Auto) (0.0-10.0) % Eos % (Auto) (0.0-4.0) % Baso % (Auto) (0.0-2.0) % Neut # (Auto) (1.8-7.0) K/uL Lymph # (Auto) (1.0-4.3) K/uL Mason # (Auto) (0.0-0.8) K/uL Eos # (Auto) (0.0-0.7) K/uL Baso # (Auto) (0.0-0.2) K/uL Neutrophils % (Manual) (50-75) % Band Neutrophils % (0-2) % Lymphocytes % (Manual) (20-40) % Monocytes % (Manual) (0-10) % Eosinophils % (Manual) (0-4) % Platelet Estimate (NORMAL) Anisocytosis (manual) [place] Cells Puncture Site Rr pCO2 33 L (35-45) mm/Hg pO2 98 (80-100) mm/Hg HCO3 20.8 L (21-28) mmol/L ABG pH 7.37 (7.35-7.45) ABG Total CO2 20.1 L (22-28) mmol/L ABG O2 Saturation 99.3 H (95-98) % ABG Base Excess -5.3 L (-2.0-3.0) mmol/L Joseph Test Unable ABG Potassium 3.8 (3.6-5.2) mmol/L A-a O2 Difference 117.0 mm/Hg Respiratory Index 1.2 Glucose 81 (75-110) mg/dl Lactate 1.2 (0.7-2.1) mmol/L Liter Flow 4.0 FiO2 36.0 % Sodium 143.0 (132-148) mmol/L Potassium (3.6-5.2) mmol/L Chloride 118.0 H (98-107) mmol/L Carbon Dioxide (22-30) mmol/L Anion Gap (10-20) BUN (9-20) mg/dL Creatinine (0.8-1.5) mg/dL Est GFR ( Amer) Est GFR (Non-Af Amer) POC Glucose (mg/dL) 88 85 (65-110) mg/dL Random Glucose (75-110) mg/dL Calcium (8.6-10.4) mg/dl Phosphorus (2.5-4.5) mg/dL Magnesium (1.6-2.3) mg/dL Total Bilirubin (0.2-1.3) mg/dL AST (17-59) U/L ALT (21-72) U/L Alkaline Phosphatase (38-126) U/L Total Protein (6.3-8.3) g/dL Albumin (3.5-5.0) g/dL Globulin (2.2-3.9) gm/dL Albumin/Globulin Ratio (1.0-2.1) Arterial Blood Potassium 3.8 (3.6-5.2) mmol/L 11/24/17 11/24/17 11/24/17 Range/Units 13:58 12:01 09:57 WBC (4.8-10.8) K/uL RBC (4.40-5.90) Mil/uL Hgb (12.0-18.0) g/dL Hct (35.0-51.0) % MCV (80.0-94.0) fL MCH (27.0-31.0) pg MCHC (33.0-37.0) g/dL RDW (11.5-14.5) % Plt Count (130-400) K/uL MPV (7.2-11.7) fL Neut % (Auto) (50.0-75.0) % Lymph % (Auto) (20.0-40.0) % Mason % (Auto) (0.0-10.0) % Eos % (Auto) (0.0-4.0) % Baso % (Auto) (0.0-2.0) % Neut # (Auto) (1.8-7.0) K/uL Lymph # (Auto) (1.0-4.3) K/uL Mason # (Auto) (0.0-0.8) K/uL Eos # (Auto) (0.0-0.7) K/uL Baso # (Auto) (0.0-0.2) K/uL Neutrophils % (Manual) (50-75) % Band Neutrophils % (0-2) % Lymphocytes % (Manual) (20-40) % Monocytes % (Manual) (0-10) % Eosinophils % (Manual) (0-4) % Platelet Estimate (NORMAL) Anisocytosis (manual) [place] Cells Puncture Site pCO2 (35-45) mm/Hg pO2 (80-100) mm/Hg HCO3 (21-28) mmol/L ABG pH (7.35-7.45) ABG Total CO2 (22-28) mmol/L ABG O2 Saturation (95-98) % ABG Base Excess (-2.0-3.0) mmol/L Joseph Test ABG Potassium (3.6-5.2) mmol/L A-a O2 Difference mm/Hg Respiratory Index Glucose (75-110) mg/dl Lactate (0.7-2.1) mmol/L Liter Flow FiO2 % Sodium (132-148) mmol/L Potassium (3.6-5.2) mmol/L Chloride (98-107) mmol/L Carbon Dioxide (22-30) mmol/L Anion Gap (10-20) BUN (9-20) mg/dL Creatinine (0.8-1.5) mg/dL Est GFR ( Amer) Est GFR (Non-Af Amer) POC Glucose (mg/dL) 92 98 85 (65-110) mg/dL Random Glucose (75-110) mg/dL Calcium (8.6-10.4) mg/dl Phosphorus (2.5-4.5) mg/dL Magnesium (1.6-2.3) mg/dL Total Bilirubin (0.2-1.3) mg/dL AST (17-59) U/L ALT (21-72) U/L Alkaline Phosphatase (38-126) U/L Total Protein (6.3-8.3) g/dL Albumin (3.5-5.0) g/dL Globulin (2.2-3.9) gm/dL Albumin/Globulin Ratio (1.0-2.1) Arterial Blood Potassium (3.6-5.2) mmol/L 11/24/17 11/24/17 11/24/17 Range/Units 08:00 07:23 06:28 WBC 35.9 H (4.8-10.8) K/uL RBC 4.08 L (4.40-5.90) Mil/uL Hgb 12.5 (12.0-18.0) g/dL Hct 36.9 (35.0-51.0) % MCV 90.4 (80.0-94.0) fL MCH 30.6 (27.0-31.0) pg MCHC 33.8 (33.0-37.0) g/dL RDW 15.0 H (11.5-14.5) % Plt Count 69 L (130-400) K/uL MPV 11.7 (7.2-11.7) fL Neut % (Auto) 93.1 H (50.0-75.0) % Lymph % (Auto) 1.2 L (20.0-40.0) % Mason % (Auto) 4.8 (0.0-10.0) % Eos % (Auto) 0.4 (0.0-4.0) % Baso % (Auto) 0.5 (0.0-2.0) % Neut # (Auto) 33.4 H (1.8-7.0) K/uL Lymph # (Auto) 0.4 L (1.0-4.3) K/uL Mason # (Auto) 1.7 H (0.0-0.8) K/uL Eos # (Auto) 0.1 (0.0-0.7) K/uL Baso # (Auto) 0.2 (0.0-0.2) K/uL Neutrophils % (Manual) 65 (50-75) % Band Neutrophils % 22 H* (0-2) % Lymphocytes % (Manual) 4 L (20-40) % Monocytes % (Manual) 6 (0-10) % Eosinophils % (Manual) 3 (0-4) % Platelet Estimate Decreased L (NORMAL) Anisocytosis (manual) Slight [place] Cells Slight Puncture Site pCO2 (35-45) mm/Hg pO2 (80-100) mm/Hg HCO3 (21-28) mmol/L ABG pH (7.35-7.45) ABG Total CO2 (22-28) mmol/L ABG O2 Saturation (95-98) % ABG Base Excess (-2.0-3.0) mmol/L Joseph Test ABG Potassium (3.6-5.2) mmol/L A-a O2 Difference mm/Hg Respiratory Index Glucose (75-110) mg/dl Lactate (0.7-2.1) mmol/L Liter Flow FiO2 % Sodium 141 (132-148) mmol/L Potassium 4.6 (3.6-5.2) mmol/L Chloride 114 H (98-107) mmol/L Carbon Dioxide 20 L (22-30) mmol/L Anion Gap 12 (10-20) BUN 42 H (9-20) mg/dL Creatinine 1.6 H (0.8-1.5) mg/dL Est GFR ( Amer) 52 Est GFR (Non-Af Amer) 43 POC Glucose (mg/dL) 75 (65-110) mg/dL Random Glucose 77 (75-110) mg/dL Calcium 7.6 L (8.6-10.4) mg/dl Phosphorus 2.9 (2.5-4.5) mg/dL Magnesium 2.0 (1.6-2.3) mg/dL Total Bilirubin 1.8 H (0.2-1.3) mg/dL AST 480 H (17-59) U/L ALT 128 H (21-72) U/L Alkaline Phosphatase 58 (38-126) U/L Total Protein 5.0 L (6.3-8.3) g/dL Albumin 2.3 L (3.5-5.0) g/dL Globulin 2.8 (2.2-3.9) gm/dL Albumin/Globulin Ratio 0.8 L (1.0-2.1) Arterial Blood Potassium (3.6-5.2) mmol/L 11/24/17 11/24/17 11/24/17 Range/Units 05:58 04:00 02:34 WBC (4.8-10.8) K/uL RBC (4.40-5.90) Mil/uL Hgb (12.0-18.0) g/dL Hct (35.0-51.0) % MCV (80.0-94.0) fL MCH (27.0-31.0) pg MCHC (33.0-37.0) g/dL RDW (11.5-14.5) % Plt Count (130-400) K/uL MPV (7.2-11.7) fL Neut % (Auto) (50.0-75.0) % Lymph % (Auto) (20.0-40.0) % Mason % (Auto) (0.0-10.0) % Eos % (Auto) (0.0-4.0) % Baso % (Auto) (0.0-2.0) % Neut # (Auto) (1.8-7.0) K/uL Lymph # (Auto) (1.0-4.3) K/uL Mason # (Auto) (0.0-0.8) K/uL Eos # (Auto) (0.0-0.7) K/uL Baso # (Auto) (0.0-0.2) K/uL Neutrophils % (Manual) (50-75) % Band Neutrophils % (0-2) % Lymphocytes % (Manual) (20-40) % Monocytes % (Manual) (0-10) % Eosinophils % (Manual) (0-4) % Platelet Estimate (NORMAL) Anisocytosis (manual) [place] Cells Puncture Site pCO2 (35-45) mm/Hg pO2 (80-100) mm/Hg HCO3 (21-28) mmol/L ABG pH (7.35-7.45) ABG Total CO2 (22-28) mmol/L ABG O2 Saturation (95-98) % ABG Base Excess (-2.0-3.0) mmol/L Joseph Test ABG Potassium (3.6-5.2) mmol/L A-a O2 Difference mm/Hg Respiratory Index Glucose (75-110) mg/dl Lactate (0.7-2.1) mmol/L Liter Flow FiO2 % Sodium (132-148) mmol/L Potassium (3.6-5.2) mmol/L Chloride (98-107) mmol/L Carbon Dioxide (22-30) mmol/L Anion Gap (10-20) BUN (9-20) mg/dL Creatinine (0.8-1.5) mg/dL Est GFR ( Amer) Est GFR (Non-Af Amer) POC Glucose (mg/dL) 76 78 114 H (65-110) mg/dL Random Glucose (75-110) mg/dL Calcium (8.6-10.4) mg/dl Phosphorus (2.5-4.5) mg/dL Magnesium (1.6-2.3) mg/dL Total Bilirubin (0.2-1.3) mg/dL AST (17-59) U/L ALT (21-72) U/L Alkaline Phosphatase (38-126) U/L Total Protein (6.3-8.3) g/dL Albumin (3.5-5.0) g/dL Globulin (2.2-3.9) gm/dL Albumin/Globulin Ratio (1.0-2.1) Arterial Blood Potassium (3.6-5.2) mmol/L 11/24/17 11/24/17 11/23/17 Range/Units 02:02 02:00 23:53 WBC (4.8-10.8) K/uL RBC (4.40-5.90) Mil/uL Hgb (12.0-18.0) g/dL Hct (35.0-51.0) % MCV (80.0-94.0) fL MCH (27.0-31.0) pg MCHC (33.0-37.0) g/dL RDW (11.5-14.5) % Plt Count (130-400) K/uL MPV (7.2-11.7) fL Neut % (Auto) (50.0-75.0) % Lymph % (Auto) (20.0-40.0) % Mason % (Auto) (0.0-10.0) % Eos % (Auto) (0.0-4.0) % Baso % (Auto) (0.0-2.0) % Neut # (Auto) (1.8-7.0) K/uL Lymph # (Auto) (1.0-4.3) K/uL Mason # (Auto) (0.0-0.8) K/uL Eos # (Auto) (0.0-0.7) K/uL Baso # (Auto) (0.0-0.2) K/uL Neutrophils % (Manual) (50-75) % Band Neutrophils % (0-2) % Lymphocytes % (Manual) (20-40) % Monocytes % (Manual) (0-10) % Eosinophils % (Manual) (0-4) % Platelet Estimate (NORMAL) Anisocytosis (manual) [place] Cells Puncture Site pCO2 (35-45) mm/Hg pO2 (80-100) mm/Hg HCO3 (21-28) mmol/L ABG pH (7.35-7.45) ABG Total CO2 (22-28) mmol/L ABG O2 Saturation (95-98) % ABG Base Excess (-2.0-3.0) mmol/L Joseph Test ABG Potassium (3.6-5.2) mmol/L A-a O2 Difference mm/Hg Respiratory Index Glucose (75-110) mg/dl Lactate (0.7-2.1) mmol/L Liter Flow FiO2 % Sodium (132-148) mmol/L Potassium (3.6-5.2) mmol/L Chloride (98-107) mmol/L Carbon Dioxide (22-30) mmol/L Anion Gap (10-20) BUN (9-20) mg/dL Creatinine (0.8-1.5) mg/dL Est GFR ( Amer) Est GFR (Non-Af Amer) POC Glucose (mg/dL) 55 L 51 L 70 (65-110) mg/dL Random Glucose (75-110) mg/dL Calcium (8.6-10.4) mg/dl Phosphorus (2.5-4.5) mg/dL Magnesium (1.6-2.3) mg/dL Total Bilirubin (0.2-1.3) mg/dL AST (17-59) U/L ALT (21-72) U/L Alkaline Phosphatase (38-126) U/L Total Protein (6.3-8.3) g/dL Albumin (3.5-5.0) g/dL Globulin (2.2-3.9) gm/dL Albumin/Globulin Ratio (1.0-2.1) Arterial Blood Potassium (3.6-5.2) mmol/L 05/23/18 05/23/18 05/23/18 Range/Units 23:32 22:41 22:08 WBC (4.8-10.8) K/uL RBC (4.40-5.90) Mil/uL Hgb (12.0-18.0) g/dL Hct (35.0-51.0) % MCV (80.0-94.0) fL MCH (27.0-31.0) pg MCHC (33.0-37.0) g/dL RDW (11.5-14.5) % Plt Count (130-400) K/uL MPV (7.2-11.7) fL Neut % (Auto) (50.0-75.0) % Lymph % (Auto) (20.0-40.0) % Mason % (Auto) (0.0-10.0) % Eos % (Auto) (0.0-4.0) % Baso % (Auto) (0.0-2.0) % Neut # (Auto) (1.8-7.0) K/uL Lymph # (Auto) (1.0-4.3) K/uL Mason # (Auto) (0.0-0.8) K/uL Eos # (Auto) (0.0-0.7) K/uL Baso # (Auto) (0.0-0.2) K/uL Neutrophils % (Manual) (50-75) % Band Neutrophils % (0-2) % Lymphocytes % (Manual) (20-40) % Monocytes % (Manual) (0-10) % Eosinophils % (Manual) (0-4) % Platelet Estimate (NORMAL) Anisocytosis (manual) [place] Cells Puncture Site pCO2 (35-45) mm/Hg pO2 (80-100) mm/Hg HCO3 (21-28) mmol/L ABG pH (7.35-7.45) ABG Total CO2 (22-28) mmol/L ABG O2 Saturation (95-98) % ABG Base Excess (-2.0-3.0) mmol/L Joseph Test ABG Potassium (3.6-5.2) mmol/L A-a O2 Difference mm/Hg Respiratory Index Glucose (75-110) mg/dl Lactate (0.7-2.1) mmol/L Liter Flow FiO2 % Sodium 139 (132-148) mmol/L Potassium 4.7 (3.6-5.2) mmol/L Chloride 113 H (98-107) mmol/L Carbon Dioxide 17 L (22-30) mmol/L Anion Gap 13 (10-20) BUN 41 H (9-20) mg/dL Creatinine 1.6 H (0.8-1.5) mg/dL Est GFR ( Amer) 52 Est GFR (Non-Af Amer) 43 POC Glucose (mg/dL) 115 H 43 L (65-110) mg/dL Random Glucose 82 (75-110) mg/dL Calcium 7.6 L (8.6-10.4) mg/dl Phosphorus 3.0 (2.5-4.5) mg/dL Magnesium 2.0 (1.6-2.3) mg/dL Total Bilirubin (0.2-1.3) mg/dL AST (17-59) U/L ALT (21-72) U/L Alkaline Phosphatase (38-126) U/L Total Protein (6.3-8.3) g/dL Albumin (3.5-5.0) g/dL Globulin (2.2-3.9) gm/dL Albumin/Globulin Ratio (1.0-2.1) Arterial Blood Potassium (3.6-5.2) mmol/L 11/23/17 11/23/17 11/23/17 Range/Units 22:04 19:57 18:46 WBC (4.8-10.8) K/uL RBC (4.40-5.90) Mil/uL Hgb (12.0-18.0) g/dL Hct (35.0-51.0) % MCV (80.0-94.0) fL MCH (27.0-31.0) pg MCHC (33.0-37.0) g/dL RDW (11.5-14.5) % Plt Count (130-400) K/uL MPV (7.2-11.7) fL Neut % (Auto) (50.0-75.0) % Lymph % (Auto) (20.0-40.0) % Mason % (Auto) (0.0-10.0) % Eos % (Auto) (0.0-4.0) % Baso % (Auto) (0.0-2.0) % Neut # (Auto) (1.8-7.0) K/uL Lymph # (Auto) (1.0-4.3) K/uL Mason # (Auto) (0.0-0.8) K/uL Eos # (Auto) (0.0-0.7) K/uL Baso # (Auto) (0.0-0.2) K/uL Neutrophils % (Manual) (50-75) % Band Neutrophils % (0-2) % Lymphocytes % (Manual) (20-40) % Monocytes % (Manual) (0-10) % Eosinophils % (Manual) (0-4) % Platelet Estimate (NORMAL) Anisocytosis (manual) [place] Cells Puncture Site pCO2 (35-45) mm/Hg pO2 (80-100) mm/Hg HCO3 (21-28) mmol/L ABG pH (7.35-7.45) ABG Total CO2 (22-28) mmol/L ABG O2 Saturation (95-98) % ABG Base Excess (-2.0-3.0) mmol/L Joseph Test ABG Potassium (3.6-5.2) mmol/L A-a O2 Difference mm/Hg Respiratory Index Glucose (75-110) mg/dl Lactate (0.7-2.1) mmol/L Liter Flow FiO2 % Sodium (132-148) mmol/L Potassium (3.6-5.2) mmol/L Chloride (98-107) mmol/L Carbon Dioxide (22-30) mmol/L Anion Gap (10-20) BUN (9-20) mg/dL Creatinine (0.8-1.5) mg/dL Est GFR ( Amer) Est GFR (Non-Af Amer) POC Glucose (mg/dL) 48 L 72 99 (65-110) mg/dL Random Glucose (75-110) mg/dL Calcium (8.6-10.4) mg/dl Phosphorus (2.5-4.5) mg/dL Magnesium (1.6-2.3) mg/dL Total Bilirubin (0.2-1.3) mg/dL AST (17-59) U/L ALT (21-72) U/L Alkaline Phosphatase (38-126) U/L Total Protein (6.3-8.3) g/dL Albumin (3.5-5.0) g/dL Globulin (2.2-3.9) gm/dL Albumin/Globulin Ratio (1.0-2.1) Arterial Blood Potassium (3.6-5.2) mmol/L 11/23/17 11/23/17 Range/Units 18:14 18:10 WBC (4.8-10.8) K/uL RBC (4.40-5.90) Mil/uL Hgb (12.0-18.0) g/dL Hct (35.0-51.0) % MCV (80.0-94.0) fL MCH (27.0-31.0) pg MCHC (33.0-37.0) g/dL RDW (11.5-14.5) % Plt Count (130-400) K/uL MPV (7.2-11.7) fL Neut % (Auto) (50.0-75.0) % Lymph % (Auto) (20.0-40.0) % Mason % (Auto) (0.0-10.0) % Eos % (Auto) (0.0-4.0) % Baso % (Auto) (0.0-2.0) % Neut # (Auto) (1.8-7.0) K/uL Lymph # (Auto) (1.0-4.3) K/uL Mason # (Auto) (0.0-0.8) K/uL Eos # (Auto) (0.0-0.7) K/uL Baso # (Auto) (0.0-0.2) K/uL Neutrophils % (Manual) (50-75) % Band Neutrophils % (0-2) % Lymphocytes % (Manual) (20-40) % Monocytes % (Manual) (0-10) % Eosinophils % (Manual) (0-4) % Platelet Estimate (NORMAL) Anisocytosis (manual) [place] Cells Puncture Site pCO2 (35-45) mm/Hg pO2 (80-100) mm/Hg HCO3 (21-28) mmol/L ABG pH (7.35-7.45) ABG Total CO2 (22-28) mmol/L ABG O2 Saturation (95-98) % ABG Base Excess (-2.0-3.0) mmol/L Joseph Test ABG Potassium (3.6-5.2) mmol/L A-a O2 Difference mm/Hg Respiratory Index Glucose (75-110) mg/dl Lactate (0.7-2.1) mmol/L Liter Flow FiO2 % Sodium (132-148) mmol/L Potassium (3.6-5.2) mmol/L Chloride (98-107) mmol/L Carbon Dioxide (22-30) mmol/L Anion Gap (10-20) BUN (9-20) mg/dL Creatinine (0.8-1.5) mg/dL Est GFR ( Amer) Est GFR (Non-Af Amer) POC Glucose (mg/dL) 47 L 45 L (65-110) mg/dL Random Glucose (75-110) mg/dL Calcium (8.6-10.4) mg/dl Phosphorus (2.5-4.5) mg/dL Magnesium (1.6-2.3) mg/dL Total Bilirubin (0.2-1.3) mg/dL AST (17-59) U/L ALT (21-72) U/L Alkaline Phosphatase (38-126) U/L Total Protein (6.3-8.3) g/dL Albumin (3.5-5.0) g/dL Globulin (2.2-3.9) gm/dL Albumin/Globulin Ratio (1.0-2.1) Arterial Blood Potassium (3.6-5.2) mmol/L Laboratory Results - last 24 hr 11/23/17 11/23/17 11/23/17 18:10 18:14 18:46 WBC RBC Hgb Hct MCV MCH MCHC RDW Plt Count MPV Neut % (Auto) Lymph % (Auto) Mason % (Auto) Eos % (Auto) Baso % (Auto) Neut # (Auto) Lymph # (Auto) Mason # (Auto) Eos # (Auto) Baso # (Auto) Neutrophils % (Manual) Band Neutrophils % Lymphocytes % (Manual) Monocytes % (Manual) Eosinophils % (Manual) Platelet Estimate Anisocytosis (manual) [place] Cells Puncture Site pCO2 pO2 HCO3 ABG pH ABG Total CO2 ABG O2 Saturation ABG Base Excess Joseph Test ABG Potassium A-a O2 Difference Respiratory Index Glucose Lactate Liter Flow FiO2 Sodium Potassium Chloride Carbon Dioxide Anion Gap BUN Creatinine Est GFR ( Amer) Est GFR (Non-Af Amer) POC Glucose (mg/dL) 45 L 47 L 99 Random Glucose Calcium Phosphorus Magnesium Total Bilirubin AST ALT Alkaline Phosphatase Total Protein Albumin Globulin Albumin/Globulin Ratio Arterial Blood Potassium 11/23/17 11/23/17 11/23/17 19:57 22:04 22:08 WBC RBC Hgb Hct MCV MCH MCHC RDW Plt Count MPV Neut % (Auto) Lymph % (Auto) Mason % (Auto) Eos % (Auto) Baso % (Auto) Neut # (Auto) Lymph # (Auto) Mason # (Auto) Eos # (Auto) Baso # (Auto) Neutrophils % (Manual) Band Neutrophils % Lymphocytes % (Manual) Monocytes % (Manual) Eosinophils % (Manual) Platelet Estimate Anisocytosis (manual) [place] Cells Puncture Site pCO2 pO2 HCO3 ABG pH ABG Total CO2 ABG O2 Saturation ABG Base Excess Joseph Test ABG Potassium A-a O2 Difference Respiratory Index Glucose Lactate Liter Flow FiO2 Sodium Potassium Chloride Carbon Dioxide Anion Gap BUN Creatinine Est GFR ( Amer) Est GFR (Non-Af Amer) POC Glucose (mg/dL) 72 48 L 43 L Random Glucose Calcium Phosphorus Magnesium Total Bilirubin AST ALT Alkaline Phosphatase Total Protein Albumin Globulin Albumin/Globulin Ratio Arterial Blood Potassium 11/23/17 11/23/17 11/23/17 22:41 23:32 23:53 WBC RBC Hgb Hct MCV MCH MCHC RDW Plt Count MPV Neut % (Auto) Lymph % (Auto) Mason % (Auto) Eos % (Auto) Baso % (Auto) Neut # (Auto) Lymph # (Auto) Mason # (Auto) Eos # (Auto) Baso # (Auto) Neutrophils % (Manual) Band Neutrophils % Lymphocytes % (Manual) Monocytes % (Manual) Eosinophils % (Manual) Platelet Estimate Anisocytosis (manual) [place] Cells Puncture Site pCO2 pO2 HCO3 ABG pH ABG Total CO2 ABG O2 Saturation ABG Base Excess Joseph Test ABG Potassium A-a O2 Difference Respiratory Index Glucose Lactate Liter Flow FiO2 Sodium 139 Potassium 4.7 Chloride 113 H Carbon Dioxide 17 L Anion Gap 13 BUN 41 H Creatinine 1.6 H Est GFR ( Amer) 52 Est GFR (Non-Af Amer) 43 POC Glucose (mg/dL) 115 H 70 Random Glucose 82 Calcium 7.6 L Phosphorus 3.0 Magnesium 2.0 Total Bilirubin AST ALT Alkaline Phosphatase Total Protein Albumin Globulin Albumin/Globulin Ratio Arterial Blood Potassium 11/24/17 11/24/17 11/24/17 02:00 02:02 02:34 WBC RBC Hgb Hct MCV MCH MCHC RDW Plt Count MPV Neut % (Auto) Lymph % (Auto) Mason % (Auto) Eos % (Auto) Baso % (Auto) Neut # (Auto) Lymph # (Auto) Mason # (Auto) Eos # (Auto) Baso # (Auto) Neutrophils % (Manual) Band Neutrophils % Lymphocytes % (Manual) Monocytes % (Manual) Eosinophils % (Manual) Platelet Estimate Anisocytosis (manual) [place] Cells Puncture Site pCO2 pO2 HCO3 ABG pH ABG Total CO2 ABG O2 Saturation ABG Base Excess Joseph Test ABG Potassium A-a O2 Difference Respiratory Index Glucose Lactate Liter Flow FiO2 Sodium Potassium Chloride Carbon Dioxide Anion Gap BUN Creatinine Est GFR ( Amer) Est GFR (Non-Af Amer) POC Glucose (mg/dL) 51 L 55 L 114 H Random Glucose Calcium Phosphorus Magnesium Total Bilirubin AST ALT Alkaline Phosphatase Total Protein Albumin Globulin Albumin/Globulin Ratio Arterial Blood Potassium 11/24/17 11/24/17 11/24/17 04:00 05:58 06:28 WBC 35.9 H RBC 4.08 L Hgb 12.5 Hct 36.9 MCV 90.4 MCH 30.6 MCHC 33.8 RDW 15.0 H Plt Count 69 L MPV 11.7 Neut % (Auto) 93.1 H Lymph % (Auto) 1.2 L Mason % (Auto) 4.8 Eos % (Auto) 0.4 Baso % (Auto) 0.5 Neut # (Auto) 33.4 H Lymph # (Auto) 0.4 L Mason # (Auto) 1.7 H Eos # (Auto) 0.1 Baso # (Auto) 0.2 Neutrophils % (Manual) 65 Band Neutrophils % 22 H* Lymphocytes % (Manual) 4 L Monocytes % (Manual) 6 Eosinophils % (Manual) 3 Platelet Estimate Decreased L Anisocytosis (manual) Slight [place] Cells Slight Puncture Site pCO2 pO2 HCO3 ABG pH ABG Total CO2 ABG O2 Saturation ABG Base Excess Joseph Test ABG Potassium A-a O2 Difference Respiratory Index Glucose Lactate Liter Flow FiO2 Sodium Potassium Chloride Carbon Dioxide Anion Gap BUN Creatinine Est GFR ( Amer) Est GFR (Non-Af Amer) POC Glucose (mg/dL) 78 76 Random Glucose Calcium Phosphorus Magnesium Total Bilirubin AST ALT Alkaline Phosphatase Total Protein Albumin Globulin Albumin/Globulin Ratio Arterial Blood Potassium 11/24/17 11/24/17 11/24/17 07:23 08:00 09:57 WBC RBC Hgb Hct MCV MCH MCHC RDW Plt Count MPV Neut % (Auto) Lymph % (Auto) Mason % (Auto) Eos % (Auto) Baso % (Auto) Neut # (Auto) Lymph # (Auto) Mason # (Auto) Eos # (Auto) Baso # (Auto) Neutrophils % (Manual) Band Neutrophils % Lymphocytes % (Manual) Monocytes % (Manual) Eosinophils % (Manual) Platelet Estimate Anisocytosis (manual) [place] Cells Puncture Site pCO2 pO2 HCO3 ABG pH ABG Total CO2 ABG O2 Saturation ABG Base Excess Joseph Test ABG Potassium A-a O2 Difference Respiratory Index Glucose Lactate Liter Flow FiO2 Sodium 141 Potassium 4.6 Chloride 114 H Carbon Dioxide 20 L Anion Gap 12 BUN 42 H Creatinine 1.6 H Est GFR ( Amer) 52 Est GFR (Non-Af Amer) 43 POC Glucose (mg/dL) 75 85 Random Glucose 77 Calcium 7.6 L Phosphorus 2.9 Magnesium 2.0 Total Bilirubin 1.8 H AST 480 H ALT 128 H Alkaline Phosphatase 58 Total Protein 5.0 L Albumin 2.3 L Globulin 2.8 Albumin/Globulin Ratio 0.8 L Arterial Blood Potassium 11/24/17 11/24/17 11/24/17 12:01 13:58 16:02 WBC RBC Hgb Hct MCV MCH MCHC RDW Plt Count MPV Neut % (Auto) Lymph % (Auto) Mason % (Auto) Eos % (Auto) Baso % (Auto) Neut # (Auto) Lymph # (Auto) Mason # (Auto) Eos # (Auto) Baso # (Auto) Neutrophils % (Manual) Band Neutrophils % Lymphocytes % (Manual) Monocytes % (Manual) Eosinophils % (Manual) Platelet Estimate Anisocytosis (manual) [place] Cells Puncture Site pCO2 pO2 HCO3 ABG pH ABG Total CO2 ABG O2 Saturation ABG Base Excess Joseph Test ABG Potassium A-a O2 Difference Respiratory Index Glucose Lactate Liter Flow FiO2 Sodium Potassium Chloride Carbon Dioxide Anion Gap BUN Creatinine Est GFR ( Amer) Est GFR (Non-Af Amer) POC Glucose (mg/dL) 98 92 85 Random Glucose Calcium Phosphorus Magnesium Total Bilirubin AST ALT Alkaline Phosphatase Total Protein Albumin Globulin Albumin/Globulin Ratio Arterial Blood Potassium 11/24/17 11/24/17 17:26 18:03 WBC RBC Hgb Hct MCV MCH MCHC RDW Plt Count MPV Neut % (Auto) Lymph % (Auto) Mason % (Auto) Eos % (Auto) Baso % (Auto) Neut # (Auto) Lymph # (Auto) Mason # (Auto) Eos # (Auto) Baso # (Auto) Neutrophils % (Manual) Band Neutrophils % Lymphocytes % (Manual) Monocytes % (Manual) Eosinophils % (Manual) Platelet Estimate Anisocytosis (manual) [place] Cells Puncture Site Rr pCO2 33 L pO2 98 HCO3 20.8 L ABG pH 7.37 ABG Total CO2 20.1 L ABG O2 Saturation 99.3 H ABG Base Excess -5.3 L Joseph Test Unable ABG Potassium 3.8 A-a O2 Difference 117.0 Respiratory Index 1.2 Glucose 81 Lactate 1.2 Liter Flow 4.0 FiO2 36.0 Sodium 143.0 Potassium Chloride 118.0 H Carbon Dioxide Anion Gap BUN Creatinine Est GFR ( Amer) Est GFR (Non-Af Amer) POC Glucose (mg/dL) 88 Random Glucose Calcium Phosphorus Magnesium Total Bilirubin AST ALT Alkaline Phosphatase Total Protein Albumin Globulin Albumin/Globulin Ratio Arterial Blood Potassium 3.8 Fingerstick Blood Sugar Results: 85 Review of Systems - Review of Systems Systems not reviewed;Unavailable: Altered Mental Status Critical Care Progress Note - Nutrition Nutrition: Nutrition Category Date Time Status Heart Healthy Diet [DIET] Diets 11/22/17 Dinner Active Assessment/Plan - Assessment and Plan (Free Text) Assessment: 72 y/o male with h/o Asthma, Benign Prostatic Hyperplasia Bipolar Disorder, CHF , COPD, Depression, HTN, Hypercholesterolemia, Schizophrenia presents to the ED following fall at retirement. Admitted to ICU for hypotension and Sepsis w/ bandemia. Plan: GCS: 12 Sedation: None A: AMS CT Head (Adm): Vasoactive Edema in Left Frontal Lobe MRI Ordered Cardio A: MS (Type II), Hx of HTN, HLD Consider Statin. Pulm A: Hypoxia, Hx of Asthma, Hx of COPD Tolerating 3L 02 NC ID A: Sepsis, Leukocytosis (Worsening) Bandemia (Worsening), Elevated Lactate ( Improved), WBC: 15.0 --> 33.2--->35.9 BAND Neutrophils POSITIVE - 21-->22 Urine Culture from Urologist POSITIVE for ESBL Cont. Vancomycin 1.25 Grams Daily started for cellultis Cont. Meropenem 500 Q12 Started for ESBL in Urine Tylenol PRN for fever Blood Cultures - POSITVE for Gram Neg. Rods Urine Cultures - Negative MRSA Culture - Not detected Wound Culture - Follow UP UA (11/22): POSITIVE Leuk ES, WBCs, Urine RBCs, Urine Bacteria ID Consulted, Recs Appreciated Endo: A: Hypoglycemia d50 PRN Consider C-peptide and Insulin Lvls Psych: A: Schizoaffective DO, Depression Ativan 1 Q6H for anxiety or Agitation. Valproic Acid 250mg BID Remeron 15mg PO QPM Renal A: Hematuria s/p Cystoscopy Yesterday (Resolved), AMADEO on CKD, BPH Renally Dose Ab/s Fluids: D5 in NS @ 100mls/hr Flomax 0.8mg PO Daily Urology on Consult Proph Protonix Hold DVT proph due to hematuria Diet - Heart Healthy PICC Line Ordered Patient seen and discussed with Attending Judie Corrales, PGY-1 <Denilson Mejia M - Last Filed: 11/24/17 18:31> CCU Objective - Vital Signs / Intake & Output Vital Signs (Last 4 hours): Vital Signs Temp Pulse Resp BP Pulse Ox 11/24/17 18:00 96 H 23 106/52 L 97 11/24/17 17:00 100.3 F H 97 H 24 105/62 97 11/24/17 16:00 99.2 F 95 H 25 H 109/66 96 11/24/17 15:00 95 H 32 H 101/57 L 96 Intake and Output (Last 8hrs): Intake & Output 11/24/17 11/24/17 11/24/17 06:59 14:59 22:59 Intake Total 700 1470 500 Output Total 480 Balance 220 1470 500 Weight 211 lb Intake: Intake, IV Amount 700 1150 500 Left Antecubital 700 1150 400 Right Wrist 100 Oral 320 Output: Urine 480 Urethral (Hawk) 480 Other: # Bowel Movements 1 - Medications Active Medications: Active Medications Generic Name Dose Route Start Last Admin Trade Name Freq PRN Reason Stop Dose Admin Albuterol/Ipratropium 3 ml 11/23/17 12:33 Duoneb 3 Mg/0.5 Mg (3 Ml) Ud INH RQ2 PRN Shortness of Breath Dextrose 50 ml 11/23/17 12:09 11/24/17 02:04 Dextrose 50% Inj IV 50 ml Q2H PRN Administration Hypoglycemia Vancomycin HCl 1.25 gm/ Sodium 250 mls @ 166.667 mls/hr 11/23/17 09:30 09:33 Chloride IVPB 166.667 mls/hr Q24H GHANSHYAM Administration Protocol Meropenem 500 mg/ Sodium 100 mls @ 100 mls/hr 11/23/17 12:00 11/24/17 13:00 Chloride IVPB 100 mls/hr Q12H GHANSHYAM Administration Protocol Dextrose/Sodium Chloride 1,000 mls @ 100 mls/hr 11/24/17 10:30 11/24/17 11:39 Dextrose 5%/0.9% Ns 1000 Ml IV 100 mls/hr .Q10H GHANSHYAM Administration Insulin Human Regular 0 unit 11/23/17 07:30 11/24/17 16:30 Novolin R SC Not Given ACHS GHANSHYAM Protocol Lorazepam 1 mg 11/23/17 12:46 11/24/17 06:49 Ativan IVP 1 mg Q4H PRN Administration Anxiety Mirtazapine 15 mg 11/23/17 18:00 11/24/17 17:41 Remeron PO Not Given QPM [facility] Mupirocin 0 gm 11/24/17 10:00 11/24/17 09:31 Bactroban Ointment TOP 1 applic DAILY GHANSHYAM Administration Pantoprazole Sodium 40 mg 11/23/17 10:00 11/24/17 11:00 Protonix Ec Tab PO 40 mg DAILY GHANSHYAM Administration Tamsulosin HCl 0.8 mg 11/23/17 10:00 11/24/17 13:21 Flomax PO 0.8 mg DAILY GHANSHYAM Administration Valproate Sodium 250 mg 11/23/17 10:00 11/24/17 17:40 Depakene Cap PO Not Given BID GHANSHYAM - Patient Studies Lab Studies: Microbiology Studies 11/22/17 23:10 Blood Culture - Preliminary Blood Gram Negative Branden Gram Stain - Final 11/23/17 00:53 MRSA Culture (Admit) - Final Naris MRSA NOT DETECTED 11/22/17 21:14 Urine Culture - Final Urine,Catheterized No Growth (<1,000 CFU/ML) 11/22/17 23:10 Blood Culture - Preliminary Blood NO GROWTH AFTER 24 HOURS Lab Studies 11/24/17 11/24/17 11/24/17 Range/Units 18:03 17:26 16:02 WBC (4.8-10.8) K/uL RBC (4.40-5.90) Mil/uL Hgb (12.0-18.0) g/dL Hct (35.0-51.0) % MCV (80.0-94.0) fL MCH (27.0-31.0) pg MCHC (33.0-37.0) g/dL RDW (11.5-14.5) % Plt Count (130-400) K/uL MPV (7.2-11.7) fL Neut % (Auto) (50.0-75.0) % Lymph % (Auto) (20.0-40.0) % Mason % (Auto) (0.0-10.0) % Eos % (Auto) (0.0-4.0) % Baso % (Auto) (0.0-2.0) % Neut # (Auto) (1.8-7.0) K/uL Lymph # (Auto) (1.0-4.3) K/uL Mason # (Auto) (0.0-0.8) K/uL Eos # (Auto) (0.0-0.7) K/uL Baso # (Auto) (0.0-0.2) K/uL Neutrophils % (Manual) (50-75) % Band Neutrophils % (0-2) % Lymphocytes % (Manual) (20-40) % Monocytes % (Manual) (0-10) % Eosinophils % (Manual) (0-4) % Platelet Estimate (NORMAL) Anisocytosis (manual) [place] Cells Puncture Site Rr pCO2 33 L (35-45) mm/Hg pO2 98 (80-100) mm/Hg HCO3 20.8 L (21-28) mmol/L ABG pH 7.37 (7.35-7.45) ABG Total CO2 20.1 L (22-28) mmol/L ABG O2 Saturation 99.3 H (95-98) % ABG Base Excess -5.3 L (-2.0-3.0) mmol/L Joseph Test Unable ABG Potassium 3.8 (3.6-5.2) mmol/L A-a O2 Difference 117.0 mm/Hg Respiratory Index 1.2 Glucose 81 (75-110) mg/dl Lactate 1.2 (0.7-2.1) mmol/L Liter Flow 4.0 FiO2 36.0 % Sodium 143.0 (132-148) mmol/L Potassium (3.6-5.2) mmol/L Chloride 118.0 H (98-107) mmol/L Carbon Dioxide (22-30) mmol/L Anion Gap (10-20) BUN (9-20) mg/dL Creatinine (0.8-1.5) mg/dL Est GFR ( Amer) Est GFR (Non-Af Amer) POC Glucose (mg/dL) 88 85 (65-110) mg/dL Random Glucose (75-110) mg/dL Calcium (8.6-10.4) mg/dl Phosphorus (2.5-4.5) mg/dL Magnesium (1.6-2.3) mg/dL Total Bilirubin (0.2-1.3) mg/dL AST (17-59) U/L ALT (21-72) U/L Alkaline Phosphatase (38-126) U/L Total Protein (6.3-8.3) g/dL Albumin (3.5-5.0) g/dL Globulin (2.2-3.9) gm/dL Albumin/Globulin Ratio (1.0-2.1) Arterial Blood Potassium 3.8 (3.6-5.2) mmol/L 11/24/17 11/24/17 11/24/17 Range/Units 13:58 12:01 09:57 WBC (4.8-10.8) K/uL RBC (4.40-5.90) Mil/uL Hgb (12.0-18.0) g/dL Hct (35.0-51.0) % MCV (80.0-94.0) fL MCH (27.0-31.0) pg MCHC (33.0-37.0) g/dL RDW (11.5-14.5) % Plt Count (130-400) K/uL MPV (7.2-11.7) fL Neut % (Auto) (50.0-75.0) % Lymph % (Auto) (20.0-40.0) % Mason % (Auto) (0.0-10.0) % Eos % (Auto) (0.0-4.0) % Baso % (Auto) (0.0-2.0) % Neut # (Auto) (1.8-7.0) K/uL Lymph # (Auto) (1.0-4.3) K/uL Mason # (Auto) (0.0-0.8) K/uL Eos # (Auto) (0.0-0.7) K/uL Baso # (Auto) (0.0-0.2) K/uL Neutrophils % (Manual) (50-75) % Band Neutrophils % (0-2) % Lymphocytes % (Manual) (20-40) % Monocytes % (Manual) (0-10) % Eosinophils % (Manual) (0-4) % Platelet Estimate (NORMAL) Anisocytosis (manual) [place] Cells Puncture Site pCO2 (35-45) mm/Hg pO2 (80-100) mm/Hg HCO3 (21-28) mmol/L ABG pH (7.35-7.45) ABG Total CO2 (22-28) mmol/L ABG O2 Saturation (95-98) % ABG Base Excess (-2.0-3.0) mmol/L Joseph Test ABG Potassium (3.6-5.2) mmol/L A-a O2 Difference mm/Hg Respiratory Index Glucose (75-110) mg/dl Lactate (0.7-2.1) mmol/L Liter Flow FiO2 % Sodium (132-148) mmol/L Potassium (3.6-5.2) mmol/L Chloride (98-107) mmol/L Carbon Dioxide (22-30) mmol/L Anion Gap (10-20) BUN (9-20) mg/dL Creatinine (0.8-1.5) mg/dL Est GFR ( Amer) Est GFR (Non-Af Amer) POC Glucose (mg/dL) 92 98 85 (65-110) mg/dL Random Glucose (75-110) mg/dL Calcium (8.6-10.4) mg/dl Phosphorus (2.5-4.5) mg/dL Magnesium (1.6-2.3) mg/dL Total Bilirubin (0.2-1.3) mg/dL AST (17-59) U/L ALT (21-72) U/L Alkaline Phosphatase (38-126) U/L Total Protein (6.3-8.3) g/dL Albumin (3.5-5.0) g/dL Globulin (2.2-3.9) gm/dL Albumin/Globulin Ratio (1.0-2.1) Arterial Blood Potassium (3.6-5.2) mmol/L 11/24/17 11/24/17 11/24/17 Range/Units 08:00 07:23 06:28 WBC 35.9 H (4.8-10.8) K/uL RBC 4.08 L (4.40-5.90) Mil/uL Hgb 12.5 (12.0-18.0) g/dL Hct 36.9 (35.0-51.0) % MCV 90.4 (80.0-94.0) fL MCH 30.6 (27.0-31.0) pg MCHC 33.8 (33.0-37.0) g/dL RDW 15.0 H (11.5-14.5) % Plt Count 69 L (130-400) K/uL MPV 11.7 (7.2-11.7) fL Neut % (Auto) 93.1 H (50.0-75.0) % Lymph % (Auto) 1.2 L (20.0-40.0) % Mason % (Auto) 4.8 (0.0-10.0) % Eos % (Auto) 0.4 (0.0-4.0) % Baso % (Auto) 0.5 (0.0-2.0) % Neut # (Auto) 33.4 H (1.8-7.0) K/uL Lymph # (Auto) 0.4 L (1.0-4.3) K/uL Mason # (Auto) 1.7 H (0.0-0.8) K/uL Eos # (Auto) 0.1 (0.0-0.7) K/uL Baso # (Auto) 0.2 (0.0-0.2) K/uL Neutrophils % (Manual) 65 (50-75) % Band Neutrophils % 22 H* (0-2) % Lymphocytes % (Manual) 4 L (20-40) % Monocytes % (Manual) 6 (0-10) % Eosinophils % (Manual) 3 (0-4) % Platelet Estimate Decreased L (NORMAL) Anisocytosis (manual) Slight [place] Cells Slight Puncture Site pCO2 (35-45) mm/Hg pO2 (80-100) mm/Hg HCO3 (21-28) mmol/L ABG pH (7.35-7.45) ABG Total CO2 (22-28) mmol/L ABG O2 Saturation (95-98) % ABG Base Excess (-2.0-3.0) mmol/L Joseph Test ABG Potassium (3.6-5.2) mmol/L A-a O2 Difference mm/Hg Respiratory Index Glucose (75-110) mg/dl Lactate (0.7-2.1) mmol/L Liter Flow FiO2 % Sodium 141 (132-148) mmol/L Potassium 4.6 (3.6-5.2) mmol/L Chloride 114 H (98-107) mmol/L Carbon Dioxide 20 L (22-30) mmol/L Anion Gap 12 (10-20) BUN 42 H (9-20) mg/dL Creatinine 1.6 H (0.8-1.5) mg/dL Est GFR ( Amer) 52 Est GFR (Non-Af Amer) 43 POC Glucose (mg/dL) 75 (65-110) mg/dL Random Glucose 77 (75-110) mg/dL Calcium 7.6 L (8.6-10.4) mg/dl Phosphorus 2.9 (2.5-4.5) mg/dL Magnesium 2.0 (1.6-2.3) mg/dL Total Bilirubin 1.8 H (0.2-1.3) mg/dL AST 480 H (17-59) U/L ALT 128 H (21-72) U/L Alkaline Phosphatase 58 (38-126) U/L Total Protein 5.0 L (6.3-8.3) g/dL Albumin 2.3 L (3.5-5.0) g/dL Globulin 2.8 (2.2-3.9) gm/dL Albumin/Globulin Ratio 0.8 L (1.0-2.1) Arterial Blood Potassium (3.6-5.2) mmol/L 11/24/17 11/24/17 11/24/17 Range/Units 05:58 04:00 02:34 WBC (4.8-10.8) K/uL RBC (4.40-5.90) Mil/uL Hgb (12.0-18.0) g/dL Hct (35.0-51.0) % MCV (80.0-94.0) fL MCH (27.0-31.0) pg MCHC (33.0-37.0) g/dL RDW (11.5-14.5) % Plt Count (130-400) K/uL MPV (7.2-11.7) fL Neut % (Auto) (50.0-75.0) % Lymph % (Auto) (20.0-40.0) % Mason % (Auto) (0.0-10.0) % Eos % (Auto) (0.0-4.0) % Baso % (Auto) (0.0-2.0) % Neut # (Auto) (1.8-7.0) K/uL Lymph # (Auto) (1.0-4.3) K/uL Mason # (Auto) (0.0-0.8) K/uL Eos # (Auto) (0.0-0.7) K/uL Baso # (Auto) (0.0-0.2) K/uL Neutrophils % (Manual) (50-75) % Band Neutrophils % (0-2) % Lymphocytes % (Manual) (20-40) % Monocytes % (Manual) (0-10) % Eosinophils % (Manual) (0-4) % Platelet Estimate (NORMAL) Anisocytosis (manual) [place] Cells Puncture Site pCO2 (35-45) mm/Hg pO2 (80-100) mm/Hg HCO3 (21-28) mmol/L ABG pH (7.35-7.45) ABG Total CO2 (22-28) mmol/L ABG O2 Saturation (95-98) % ABG Base Excess (-2.0-3.0) mmol/L Joseph Test ABG Potassium (3.6-5.2) mmol/L A-a O2 Difference mm/Hg Respiratory Index Glucose (75-110) mg/dl Lactate (0.7-2.1) mmol/L Liter Flow FiO2 % Sodium (132-148) mmol/L Potassium (3.6-5.2) mmol/L Chloride (98-107) mmol/L Carbon Dioxide (22-30) mmol/L Anion Gap (10-20) BUN (9-20) mg/dL Creatinine (0.8-1.5) mg/dL Est GFR ( Amer) Est GFR (Non-Af Amer) POC Glucose (mg/dL) 76 78 114 H (65-110) mg/dL Random Glucose (75-110) mg/dL Calcium (8.6-10.4) mg/dl Phosphorus (2.5-4.5) mg/dL Magnesium (1.6-2.3) mg/dL Total Bilirubin (0.2-1.3) mg/dL AST (17-59) U/L ALT (21-72) U/L Alkaline Phosphatase (38-126) U/L Total Protein (6.3-8.3) g/dL Albumin (3.5-5.0) g/dL Globulin (2.2-3.9) gm/dL Albumin/Globulin Ratio (1.0-2.1) Arterial Blood Potassium (3.6-5.2) mmol/L 11/24/17 11/24/17 11/23/17 Range/Units 02:02 02:00 23:53 WBC (4.8-10.8) K/uL RBC (4.40-5.90) Mil/uL Hgb (12.0-18.0) g/dL Hct (35.0-51.0) % MCV (80.0-94.0) fL MCH (27.0-31.0) pg MCHC (33.0-37.0) g/dL RDW (11.5-14.5) % Plt Count (130-400) K/uL MPV (7.2-11.7) fL Neut % (Auto) (50.0-75.0) % Lymph % (Auto) (20.0-40.0) % Mason % (Auto) (0.0-10.0) % Eos % (Auto) (0.0-4.0) % Baso % (Auto) (0.0-2.0) % Neut # (Auto) (1.8-7.0) K/uL Lymph # (Auto) (1.0-4.3) K/uL Mason # (Auto) (0.0-0.8) K/uL Eos # (Auto) (0.0-0.7) K/uL Baso # (Auto) (0.0-0.2) K/uL Neutrophils % (Manual) (50-75) % Band Neutrophils % (0-2) % Lymphocytes % (Manual) (20-40) % Monocytes % (Manual) (0-10) % Eosinophils % (Manual) (0-4) % Platelet Estimate (NORMAL) Anisocytosis (manual) [place] Cells Puncture Site pCO2 (35-45) mm/Hg pO2 (80-100) mm/Hg HCO3 (21-28) mmol/L ABG pH (7.35-7.45) ABG Total CO2 (22-28) mmol/L ABG O2 Saturation (95-98) % ABG Base Excess (-2.0-3.0) mmol/L Joseph Test ABG Potassium (3.6-5.2) mmol/L A-a O2 Difference mm/Hg Respiratory Index Glucose (75-110) mg/dl Lactate (0.7-2.1) mmol/L Liter Flow FiO2 % Sodium (132-148) mmol/L Potassium (3.6-5.2) mmol/L Chloride (98-107) mmol/L Carbon Dioxide (22-30) mmol/L Anion Gap (10-20) BUN (9-20) mg/dL Creatinine (0.8-1.5) mg/dL Est GFR ( Amer) Est GFR (Non-Af Amer) POC Glucose (mg/dL) 55 L 51 L 70 (65-110) mg/dL Random Glucose (75-110) mg/dL Calcium (8.6-10.4) mg/dl Phosphorus (2.5-4.5) mg/dL Magnesium (1.6-2.3) mg/dL Total Bilirubin (0.2-1.3) mg/dL AST (17-59) U/L ALT (21-72) U/L Alkaline Phosphatase (38-126) U/L Total Protein (6.3-8.3) g/dL Albumin (3.5-5.0) g/dL Globulin (2.2-3.9) gm/dL Albumin/Globulin Ratio (1.0-2.1) Arterial Blood Potassium (3.6-5.2) mmol/L 11/23/17 11/23/17 11/23/17 Range/Units 23:32 22:41 22:08 WBC (4.8-10.8) K/uL RBC (4.40-5.90) Mil/uL Hgb (12.0-18.0) g/dL Hct (35.0-51.0) % MCV (80.0-94.0) fL MCH (27.0-31.0) pg MCHC (33.0-37.0) g/dL RDW (11.5-14.5) % Plt Count (130-400) K/uL MPV (7.2-11.7) fL Neut % (Auto) (50.0-75.0) % Lymph % (Auto) (20.0-40.0) % Mason % (Auto) (0.0-10.0) % Eos % (Auto) (0.0-4.0) % Baso % (Auto) (0.0-2.0) % Neut # (Auto) (1.8-7.0) K/uL Lymph # (Auto) (1.0-4.3) K/uL Mason # (Auto) (0.0-0.8) K/uL Eos # (Auto) (0.0-0.7) K/uL Baso # (Auto) (0.0-0.2) K/uL Neutrophils % (Manual) (50-75) % Band Neutrophils % (0-2) % Lymphocytes % (Manual) (20-40) % Monocytes % (Manual) (0-10) % Eosinophils % (Manual) (0-4) % Platelet Estimate (NORMAL) Anisocytosis (manual) [place] Cells Puncture Site pCO2 (35-45) mm/Hg pO2 (80-100) mm/Hg HCO3 (21-28) mmol/L ABG pH (7.35-7.45) ABG Total CO2 (22-28) mmol/L ABG O2 Saturation (95-98) % ABG Base Excess (-2.0-3.0) mmol/L Joseph Test ABG Potassium (3.6-5.2) mmol/L A-a O2 Difference mm/Hg Respiratory Index Glucose (75-110) mg/dl Lactate (0.7-2.1) mmol/L Liter Flow FiO2 % Sodium 139 (132-148) mmol/L Potassium 4.7 (3.6-5.2) mmol/L Chloride 113 H (98-107) mmol/L Carbon Dioxide 17 L (22-30) mmol/L Anion Gap 13 (10-20) BUN 41 H (9-20) mg/dL Creatinine 1.6 H (0.8-1.5) mg/dL Est GFR ( Amer) 52 Est GFR (Non-Af Amer) 43 POC Glucose (mg/dL) 115 H 43 L (65-110) mg/dL Random Glucose 82 (75-110) mg/dL Calcium 7.6 L (8.6-10.4) mg/dl Phosphorus 3.0 (2.5-4.5) mg/dL Magnesium 2.0 (1.6-2.3) mg/dL Total Bilirubin (0.2-1.3) mg/dL AST (17-59) U/L ALT (21-72) U/L Alkaline Phosphatase (38-126) U/L Total Protein (6.3-8.3) g/dL Albumin (3.5-5.0) g/dL Globulin (2.2-3.9) gm/dL Albumin/Globulin Ratio (1.0-2.1) Arterial Blood Potassium (3.6-5.2) mmol/L 11/23/17 11/23/17 11/23/17 Range/Units 22:04 19:57 18:46 WBC (4.8-10.8) K/uL RBC (4.40-5.90) Mil/uL Hgb (12.0-18.0) g/dL Hct (35.0-51.0) % MCV (80.0-94.0) fL MCH (27.0-31.0) pg MCHC (33.0-37.0) g/dL RDW (11.5-14.5) % Plt Count (130-400) K/uL MPV (7.2-11.7) fL Neut % (Auto) (50.0-75.0) % Lymph % (Auto) (20.0-40.0) % Mason % (Auto) (0.0-10.0) % Eos % (Auto) (0.0-4.0) % Baso % (Auto) (0.0-2.0) % Neut # (Auto) (1.8-7.0) K/uL Lymph # (Auto) (1.0-4.3) K/uL Mason # (Auto) (0.0-0.8) K/uL Eos # (Auto) (0.0-0.7) K/uL Baso # (Auto) (0.0-0.2) K/uL Neutrophils % (Manual) (50-75) % Band Neutrophils % (0-2) % Lymphocytes % (Manual) (20-40) % Monocytes % (Manual) (0-10) % Eosinophils % (Manual) (0-4) % Platelet Estimate (NORMAL) Anisocytosis (manual) [place] Cells Puncture Site pCO2 (35-45) mm/Hg pO2 (80-100) mm/Hg HCO3 (21-28) mmol/L ABG pH (7.35-7.45) ABG Total CO2 (22-28) mmol/L ABG O2 Saturation (95-98) % ABG Base Excess (-2.0-3.0) mmol/L Joseph Test ABG Potassium (3.6-5.2) mmol/L A-a O2 Difference mm/Hg Respiratory Index Glucose (75-110) mg/dl Lactate (0.7-2.1) mmol/L Liter Flow FiO2 % Sodium (132-148) mmol/L Potassium (3.6-5.2) mmol/L Chloride (98-107) mmol/L Carbon Dioxide (22-30) mmol/L Anion Gap (10-20) BUN (9-20) mg/dL Creatinine (0.8-1.5) mg/dL Est GFR ( Amer) Est GFR (Non-Af Amer) POC Glucose (mg/dL) 48 L 72 99 (65-110) mg/dL Random Glucose (75-110) mg/dL Calcium (8.6-10.4) mg/dl Phosphorus (2.5-4.5) mg/dL Magnesium (1.6-2.3) mg/dL Total Bilirubin (0.2-1.3) mg/dL AST (17-59) U/L ALT (21-72) U/L Alkaline Phosphatase (38-126) U/L Total Protein (6.3-8.3) g/dL Albumin (3.5-5.0) g/dL Globulin (2.2-3.9) gm/dL Albumin/Globulin Ratio (1.0-2.1) Arterial Blood Potassium (3.6-5.2) mmol/L Laboratory Results - last 24 hr 11/23/17 11/23/17 11/23/17 18:46 19:57 22:04 WBC RBC Hgb Hct MCV MCH MCHC RDW Plt Count MPV Neut % (Auto) Lymph % (Auto) Mason % (Auto) Eos % (Auto) Baso % (Auto) Neut # (Auto) Lymph # (Auto) Mason # (Auto) Eos # (Auto) Baso # (Auto) Neutrophils % (Manual) Band Neutrophils % Lymphocytes % (Manual) Monocytes % (Manual) Eosinophils % (Manual) Platelet Estimate Anisocytosis (manual) [place] Cells Puncture Site pCO2 pO2 HCO3 ABG pH ABG Total CO2 ABG O2 Saturation ABG Base Excess Joseph Test ABG Potassium A-a O2 Difference Respiratory Index Glucose Lactate Liter Flow FiO2 Sodium Potassium Chloride Carbon Dioxide Anion Gap BUN Creatinine Est GFR ( Amer) Est GFR (Non-Af Amer) POC Glucose (mg/dL) 99 72 48 L Random Glucose Calcium Phosphorus Magnesium Total Bilirubin AST ALT Alkaline Phosphatase Total Protein Albumin Globulin Albumin/Globulin Ratio Arterial Blood Potassium 11/23/17 11/23/17 11/23/17 22:08 22:41 23:32 WBC RBC Hgb Hct MCV MCH MCHC RDW Plt Count MPV Neut % (Auto) Lymph % (Auto) Mason % (Auto) Eos % (Auto) Baso % (Auto) Neut # (Auto) Lymph # (Auto) Mason # (Auto) Eos # (Auto) Baso # (Auto) Neutrophils % (Manual) Band Neutrophils % Lymphocytes % (Manual) Monocytes % (Manual) Eosinophils % (Manual) Platelet Estimate Anisocytosis (manual) [place] Cells Puncture Site pCO2 pO2 HCO3 ABG pH ABG Total CO2 ABG O2 Saturation ABG Base Excess Joseph Test ABG Potassium A-a O2 Difference Respiratory Index Glucose Lactate Liter Flow FiO2 Sodium 139 Potassium 4.7 Chloride 113 H Carbon Dioxide 17 L Anion Gap 13 BUN 41 H Creatinine 1.6 H Est GFR ( Amer) 52 Est GFR (Non-Af Amer) 43 POC Glucose (mg/dL) 43 L 115 H Random Glucose 82 Calcium 7.6 L Phosphorus 3.0 Magnesium 2.0 Total Bilirubin AST ALT Alkaline Phosphatase Total Protein Albumin Globulin Albumin/Globulin Ratio Arterial Blood Potassium 11/23/17 11/24/17 11/24/17 23:53 02:00 02:02 WBC RBC Hgb Hct MCV MCH MCHC RDW Plt Count MPV Neut % (Auto) Lymph % (Auto) Mason % (Auto) Eos % (Auto) Baso % (Auto) Neut # (Auto) Lymph # (Auto) Mason # (Auto) Eos # (Auto) Baso # (Auto) Neutrophils % (Manual) Band Neutrophils % Lymphocytes % (Manual) Monocytes % (Manual) Eosinophils % (Manual) Platelet Estimate Anisocytosis (manual) [place] Cells Puncture Site pCO2 pO2 HCO3 ABG pH ABG Total CO2 ABG O2 Saturation ABG Base Excess Joseph Test ABG Potassium A-a O2 Difference Respiratory Index Glucose Lactate Liter Flow FiO2 Sodium Potassium Chloride Carbon Dioxide Anion Gap BUN Creatinine Est GFR ( Amer) Est GFR (Non-Af Amer) POC Glucose (mg/dL) 70 51 L 55 L Random Glucose Calcium Phosphorus Magnesium Total Bilirubin AST ALT Alkaline Phosphatase Total Protein Albumin Globulin Albumin/Globulin Ratio Arterial Blood Potassium 11/24/17 11/24/17 11/24/17 02:34 04:00 05:58 WBC RBC Hgb Hct MCV MCH MCHC RDW Plt Count MPV Neut % (Auto) Lymph % (Auto) Mason % (Auto) Eos % (Auto) Baso % (Auto) Neut # (Auto) Lymph # (Auto) Mason # (Auto) Eos # (Auto) Baso # (Auto) Neutrophils % (Manual) Band Neutrophils % Lymphocytes % (Manual) Monocytes % (Manual) Eosinophils % (Manual) Platelet Estimate Anisocytosis (manual) [place] Cells Puncture Site pCO2 pO2 HCO3 ABG pH ABG Total CO2 ABG O2 Saturation ABG Base Excess Joseph Test ABG Potassium A-a O2 Difference Respiratory Index Glucose Lactate Liter Flow FiO2 Sodium Potassium Chloride Carbon Dioxide Anion Gap BUN Creatinine Est GFR ( Amer) Est GFR (Non-Af Amer) POC Glucose (mg/dL) 114 H 78 76 Random Glucose Calcium Phosphorus Magnesium Total Bilirubin AST ALT Alkaline Phosphatase Total Protein Albumin Globulin Albumin/Globulin Ratio Arterial Blood Potassium 11/24/17 11/24/17 11/24/17 06:28 07:23 08:00 WBC 35.9 H RBC 4.08 L Hgb 12.5 Hct 36.9 MCV 90.4 MCH 30.6 MCHC 33.8 RDW 15.0 H Plt Count 69 L MPV 11.7 Neut % (Auto) 93.1 H Lymph % (Auto) 1.2 L Mason % (Auto) 4.8 Eos % (Auto) 0.4 Baso % (Auto) 0.5 Neut # (Auto) 33.4 H Lymph # (Auto) 0.4 L Mason # (Auto) 1.7 H Eos # (Auto) 0.1 Baso # (Auto) 0.2 Neutrophils % (Manual) 65 Band Neutrophils % 22 H* Lymphocytes % (Manual) 4 L Monocytes % (Manual) 6 Eosinophils % (Manual) 3 Platelet Estimate Decreased L Anisocytosis (manual) Slight [place] Cells Slight Puncture Site pCO2 pO2 HCO3 ABG pH ABG Total CO2 ABG O2 Saturation ABG Base Excess Joseph Test ABG Potassium A-a O2 Difference Respiratory Index Glucose Lactate Liter Flow FiO2 Sodium 141 Potassium 4.6 Chloride 114 H Carbon Dioxide 20 L Anion Gap 12 BUN 42 H Creatinine 1.6 H Est GFR ( Amer) 52 Est GFR (Non-Af Amer) 43 POC Glucose (mg/dL) 75 Random Glucose 77 Calcium 7.6 L Phosphorus 2.9 Magnesium 2.0 Total Bilirubin 1.8 H AST 480 H ALT 128 H Alkaline Phosphatase 58 Total Protein 5.0 L Albumin 2.3 L Globulin 2.8 Albumin/Globulin Ratio 0.8 L Arterial Blood Potassium 11/24/17 11/24/17 11/24/17 09:57 12:01 13:58 WBC RBC Hgb Hct MCV MCH MCHC RDW Plt Count MPV Neut % (Auto) Lymph % (Auto) Mason % (Auto) Eos % (Auto) Baso % (Auto) Neut # (Auto) Lymph # (Auto) Mason # (Auto) Eos # (Auto) Baso # (Auto) Neutrophils % (Manual) Band Neutrophils % Lymphocytes % (Manual) Monocytes % (Manual) Eosinophils % (Manual) Platelet Estimate Anisocytosis (manual) [place] Cells Puncture Site pCO2 pO2 HCO3 ABG pH ABG Total CO2 ABG O2 Saturation ABG Base Excess Joseph Test ABG Potassium A-a O2 Difference Respiratory Index Glucose Lactate Liter Flow FiO2 Sodium Potassium Chloride Carbon Dioxide Anion Gap BUN Creatinine Est GFR ( Amer) Est GFR (Non-Af Amer) POC Glucose (mg/dL) 85 98 92 Random Glucose Calcium Phosphorus Magnesium Total Bilirubin AST ALT Alkaline Phosphatase Total Protein Albumin Globulin Albumin/Globulin Ratio Arterial Blood Potassium 11/24/17 11/24/17 11/24/17 16:02 17:26 18:03 WBC RBC Hgb Hct MCV MCH MCHC RDW Plt Count MPV Neut % (Auto) Lymph % (Auto) Mason % (Auto) Eos % (Auto) Baso % (Auto) Neut # (Auto) Lymph # (Auto) Mason # (Auto) Eos # (Auto) Baso # (Auto) Neutrophils % (Manual) Band Neutrophils % Lymphocytes % (Manual) Monocytes % (Manual) Eosinophils % (Manual) Platelet Estimate Anisocytosis (manual) [place] Cells Puncture Site Rr pCO2 33 L pO2 98 HCO3 20.8 L ABG pH 7.37 ABG Total CO2 20.1 L ABG O2 Saturation 99.3 H ABG Base Excess -5.3 L Joseph Test Unable ABG Potassium 3.8 A-a O2 Difference 117.0 Respiratory Index 1.2 Glucose 81 Lactate 1.2 Liter Flow 4.0 FiO2 36.0 Sodium 143.0 Potassium Chloride 118.0 H Carbon Dioxide Anion Gap BUN Creatinine Est GFR ( Amer) Est GFR (Non-Af Amer) POC Glucose (mg/dL) 85 88 Random Glucose Calcium Phosphorus Magnesium Total Bilirubin AST ALT Alkaline Phosphatase Total Protein Albumin Globulin Albumin/Globulin Ratio Arterial Blood Potassium 3.8 Critical Care Progress Note - Nutrition Nutrition: Nutrition Category Date Time Status Heart Healthy Diet [DIET] Diets 11/22/17 Dinner Active Attending/Attestation - Attestation I have personally seen and examined this patient.: Yes I have fully participated in the care of the patient.: Yes I have reviewed all pertinent clinical information: Yes Notes (Text): 11/24/17 18:26 The Patient was seen and examined at the bedside, Medical records reviewed, and management issues were discussed and formulated with the house staff. I have reviewed all the relevant clinical, laboratory, hemodynamic, radiographic data and medications Events reviewed Pain issues, skin care, head of the bed elevation, glycemic control were addressed. Agree with above resident's assessment and treatment plans of care as transcribed in Dr. Bai note. Patient confused and drowsy, ABG reviewed. Continue current management, medications reviewed, avoid all sedative. Critically ill patient with acute hypoxemic respiratory failure, Respiratory acidosis septic shock and Toxic metabolic Acute kidney injury , now with slight improvement of renal function Discussed with the family in details diagnosis, treatment plans and alternatives. Code status: Full code Total critical care time 45 minutes
--- NOTE | 2017-11-24 23:22 | CP.PCM.PN ---
Subjective - Date & Time of Evaluation Date of Evaluation: 11/24/17 Time of Evaluation: 23:22 - Subjective Subjective: CHIEF COMPLAINTS TODAY : afebrile, confused , +folys blood tinged urine ROS. on observation only HEENT : N. Resp : No cough, wheezing ,pleuritic CP ,or hemoptysis Cardio : No anginal CP, PND, orthopnea, palpitation GI : No abd.pain, n/v ,diarrhea or GI bleeding . THREAD DRAWER : No headache, vertigo, focal deficit. Musculoskel : No joint swelling , Derm : No rash Psych : Normal affect. Ext : No swelling ,calf pain LT FOOT IN DRESSING +ve FOLY PE. Pt. is CONFUSED, LETHARGIC V.S As noted in the chart Head ,ear nose,throat and eyes : Normal. Neck : Supple with normal carotids. Lungs: Clear air entry. Heart : S1 & S2 normal with S4. No murmur. Abd : MILD TENDERNESS SUPRAPUBIC, with normal bowel sounds. Neuro : Moves all ext. with no localized deficit. Ext : 1+ edema with intact pulses.TRAUMATIC AVULSION OF LT. 2ND TOE NAIL. CHRONIC STASIS DERMATITIS CHANGES B/L LE.). Negative for: calf tenderness Derm : No rashes or decubitus ulcer. LABS/RADIOLOGY: BLOOD CULTURE - GNR 1:2 SETS. ASSESSMENT SEPTIC SHOCK/BANDEMIA GRAM-NEGATIV SEPSIS-SOURCE HEMATURIA S/P CYSTOSCOPY. RENAL INSUFFICIENCY. TRANSAMINITIS ? SHOCK LIVER BPH. /PLAN IV AMIKACIN 500MG IVPB X1 DOSE TODAY 11/24/17. CONTINUE IV MERREM 500MG IV [id number]. F/U LFTS. IV FLUIDS PER PMD Objective - Vital Signs/Intake and Output Vital Signs (last 24 hours): Temp Pulse Resp BP Pulse Ox 100.3 F H 104 H 22 99/55 L 97 11/24/17 20:00 11/24/17 22:00 11/24/17 22:00 11/24/17 21:51 11/24/17 22:00 Intake and Output: 11/24/17 11/25/17 18:59 06:59 Intake Total 1970 500 Output Total 505 250 Balance 1465 250 - Medications Medications: Current Medications Albuterol/Ipratropium (Duoneb 3 Mg/0.5 Mg (3 Ml) Ud) 3 ml INH RQ2 PRN PRN Reason: Shortness of Breath Dextrose (Dextrose 50% Inj) 50 ml IV Q2H PRN PRN Reason: Hypoglycemia Last Admin: 11/24/17 02:04 Dose: 50 ml Vancomycin HCl 1.25 gm/ Sodium (Chloride) 250 mls @ 166.667 mls/hr IVPB Q24H [facility] PRN Reason: Protocol Last Admin: 11/24/17 09:33 Dose: 166.667 mls/hr Meropenem 500 mg/ Sodium (Chloride) 100 mls @ 100 mls/hr IVPB Q12H [facility] PRN Reason: Protocol Last Admin: 11/24/17 13:00 Dose: 100 mls/hr Dextrose/Sodium Chloride (Dextrose 5%/0.9% Ns 1000 Ml) 1,000 mls @ 100 mls/hr IV .Q10H [facility] Last Admin: 11/24/17 20:42 Dose: 100 mls/hr Insulin Human Regular (Novolin R) 0 unit SC ACHS [facility] PRN Reason: Protocol Last Admin: 11/24/17 23:17 Dose: Not Given Lorazepam (Ativan) 1 mg IVP Q4H PRN PRN Reason: Anxiety Last Admin: 11/24/17 06:49 Dose: 1 mg Mirtazapine (Remeron) 15 mg PO QPM [facility] Last Admin: 11/24/17 17:41 Dose: Not Given Mupirocin (Bactroban Ointment) 0 gm TOP DAILY [facility] Last Admin: 11/24/17 09:31 Dose: 1 applic Pantoprazole Sodium (Protonix Ec Tab) 40 mg PO DAILY [facility] Last Admin: 11/24/17 11:00 Dose: 40 mg Tamsulosin HCl (Flomax) 0.8 mg PO DAILY [facility] Last Admin: 11/24/17 13:21 Dose: 0.8 mg Valproate Sodium (Depakene Cap) 250 mg PO BID [facility] Last Admin: 11/24/17 17:40 Dose: Not Given - Labs Labs: 11/24/17 06:28 11/24/17 07:23 PT 18.9 SECONDS (9.7-12.2) H 11/22/17 19:09 INR 1.7 11/22/17 19:09 APTT 45 SECONDS (21-34) H 11/22/17 19:09 Assessment and Plan (1) Septic shock Status: Acute (2) UTI (urinary tract infection) Status: Chronic (3) Gross hematuria Status: Acute (4) S/P cystoscopy Status: Acute (5) BPH (benign prostatic hyperplasia) Status: Chronic (6) Renal insufficiency Status: Acute
[2017-11-24] MEDS ORDERED: Acetaminophen IV 1,000 MG in Premixed IV 1 EA IV ONE (23:49)
[2017-11-25] MEDS: Meropenem 500 MG in Sodium Chloride 0.9% 100 ML IVPB SCH ×3 (00:05→23:30)
--- NOTE | 2017-11-25 05:52 | CP.PCM.PN ---
Subjective - Date & Time of Evaluation Date of Evaluation: 11/24/17 Time of Evaluation: 20:00 - Subjective Subjective: Patient seen and examined at bedside. Currently on Mechanical Ventilation. Objective - Vital Signs/Intake and Output Vital Signs (last 24 hours): Temp Pulse Resp BP Pulse Ox 98.5 F 82 21 88/52 L 98 11/25/17 04:00 11/25/17 05:00 11/25/17 05:00 11/25/17 04:51 11/25/17 05:00 Intake and Output: 11/24/17 11/25/17 18:59 06:59 Intake Total 1970 1150 Output Total 505 550 Balance 1465 600 - Medications Medications: Current Medications Albuterol/Ipratropium (Duoneb 3 Mg/0.5 Mg (3 Ml) Ud) 3 ml INH RQ2 PRN PRN Reason: Shortness of Breath Dextrose (Dextrose 50% Inj) 50 ml IV Q2H PRN PRN Reason: Hypoglycemia Last Admin: 11/24/17 02:04 Dose: 50 ml Vancomycin HCl 1.25 gm/ Sodium (Chloride) 250 mls @ 166.667 mls/hr IVPB Q24H [facility] PRN Reason: Protocol Last Admin: 11/24/17 09:33 Dose: 166.667 mls/hr Meropenem 500 mg/ Sodium (Chloride) 100 mls @ 100 mls/hr IVPB Q12H [facility] PRN Reason: Protocol Last Admin: 11/25/17 00:05 Dose: 100 mls/hr Dextrose/Sodium Chloride (Dextrose 5%/0.9% Ns 1000 Ml) 1,000 mls @ 100 mls/hr IV .Q10H [facility] Last Admin: 11/24/17 20:42 Dose: 100 mls/hr Insulin Human Regular (Novolin R) 0 unit SC ACHS [facility] PRN Reason: Protocol Last Admin: 11/24/17 23:17 Dose: Not Given Lorazepam (Ativan) 1 mg IVP Q4H PRN PRN Reason: Anxiety Last Admin: 11/24/17 23:26 Dose: 1 mg Mirtazapine (Remeron) 15 mg PO QPM [facility] Last Admin: 11/24/17 17:41 Dose: Not Given Mupirocin (Bactroban Ointment) 0 gm TOP DAILY [facility] Last Admin: 11/24/17 09:31 Dose: 1 applic Pantoprazole Sodium (Protonix Ec Tab) 40 mg PO DAILY [facility] Last Admin: 11/24/17 11:00 Dose: 40 mg Tamsulosin HCl (Flomax) 0.8 mg PO DAILY [facility] Last Admin: 11/24/17 13:21 Dose: 0.8 mg Valproate Sodium (Depakene Cap) 250 mg PO BID [facility] Last Admin: 11/24/17 17:40 Dose: Not Given - Labs Labs: 11/24/17 06:28 11/24/17 07:23 PT 18.9 SECONDS (9.7-12.2) H 11/22/17 19:09 INR 1.7 11/22/17 19:09 APTT 45 SECONDS (21-34) H 11/22/17 19:09 Assessment and Plan (1) Toxic metabolic encephalopathy Status: Acute (2) S/P cystoscopy Status: Acute (3) Sepsis Status: Acute (4) Leukocytosis Status: Acute (5) UTI (lower urinary tract infection) Status: Acute
[2017-11-25] MEDS: Dextrose 5%/0.9% NS 1,000 ML IV SCH ×2 (06:16→16:30)
[2017-11-25 06:17] LABS: BASO # 0.1 K/uL (0.0-0.2); BASO % 0.3 % (0.0-2.0); EOS # 0.1 K/uL (0.0-0.7); EOS % 0.3 % (0.0-4.0); HEMOGLOBIN 11.3 g/dL (12.0-18.0); LYMPH # 0.4 K/uL (1.0-4.3); LYMPH % 1.9 % (20.0-40.0); MEAN CELL VOLUME 89.8 fL (80.0-94.0); MEAN CORPUSCULAR HEMOGLOBIN 30.3 pg (27.0-31.0); MEAN CORPUSCULAR HGB CONC 33.8 g/dL (33.0-37.0); MONO # 1.4 K/uL (0.0-0.8); MONO % 5.9 % (0.0-10.0); NEUT # 21.5 K/uL (1.8-7.0); NEUT % 91.6 % (50.0-75.0); PLATELET COUNT 44 K/uL (130-400); RBC 3.74 Mil/uL (4.40-5.90); WHITE BLOOD COUNT 23.4 K/uL (4.8-10.8)
[2017-11-25 06:40] LABS: ALB/GLOB RATIO 0.8 (1.0-2.1); ALBUMIN 2.1 g/dL (3.5-5.0); ALT/SGPT 100 U/L (21-72); AST/SGOT 247 U/L (17-59); BLOOD UREA NITROGEN 43 mg/dL (9-20); CALCIUM 7.4 mg/dl (8.6-10.4); GFR AFRICAN-AMERICAN > 60; GFR NON-AFRICAN AMERICAN 54
[2017-11-25] MEDS: (Novolin R) Insulin Human Regular 100 units/ml vial SC SCH ×4 (07:30→22:41)
[2017-11-25 08:44] LABS: ANISOCYTOSIS SLIGHT; BANDS 15 % (0-2); LYMPHOCYTE 2 % (20-40); MONOCYTE 4 % (0-10); NEUTROPHIL 79 % (50-75); OVALOCYTES SLIGHT; PLATELET ESTIMATE DECREASED (NORMAL); POIKILOCYTOSIS SLIGHT; TOTAL CELLS COUNTED 100
[2017-11-25 08:46] LABS: HYPOCHROMIC SLIGHT; POLYCHROMIC SLIGHT; TOXIC GRANULATION PRESENT
[2017-11-25] MEDS ORDERED: Albuterol-Ipratrop 3 mg / 0.5 (3 ml) UD INH SCH (10:00)
[2017-11-25] MEDS ORDERED: Povidone Iodine Oint 10% (1 oz) TOP SCH (10:00)
[2017-11-25] MEDS: Pantoprazole 40 mg EC Tab PO SCH (10:55)
--- NOTE | 2017-11-25 12:00 | CP.PCM.PN ---
Subjective - Date & Time of Evaluation Date of Evaluation: 11/25/17 Time of Evaluation: 11:59 - Subjective Subjective: Pt seen at bedside for f/u left 2nd digit nail avulsion. Pt in NAD. Left 2nd digit appears pink and dry. No purulence or acute SOI. Cont with local wound care using Bactroban and DSD for now. Will f/u while inhouse. Objective - Vital Signs/Intake and Output Vital Signs (last 24 hours): Temp Pulse Resp BP Pulse Ox 98.5 F 95 H 31 H 103/64 86 L 11/25/17 04:00 11/25/17 06:00 11/25/17 06:00 11/25/17 05:53 11/25/17 06:00 Intake and Output: 11/25/17 11/25/17 06:59 18:59 Intake Total 1350 Output Total 670 Balance 680 - Medications Medications: Current Medications Albuterol/Ipratropium (Duoneb 3 Mg/0.5 Mg (3 Ml) Ud) 3 ml INH Q6H [facility] Dextrose (Dextrose 50% Inj) 50 ml IV Q2H PRN PRN Reason: Hypoglycemia Last Admin: 11/24/17 02:04 Dose: 50 ml Finasteride (Proscar) 5 mg PO DAILY [facility] Last Admin: 11/25/17 10:55 Dose: Not Given Meropenem 500 mg/ Sodium (Chloride) 100 mls @ 100 mls/hr IVPB Q12H [facility] PRN Reason: Protocol Last Admin: 11/25/17 00:05 Dose: 100 mls/hr Dextrose/Sodium Chloride (Dextrose 5%/0.9% Ns 1000 Ml) 1,000 mls @ 100 mls/hr IV .Q10H [facility] Last Admin: 11/25/17 06:16 Dose: 100 mls/hr Insulin Human Regular (Novolin R) 0 unit SC ACHS [facility] PRN Reason: Protocol Last Admin: 11/25/17 11:37 Dose: Not Given Mirtazapine (Remeron) 15 mg PO QPM [facility] Last Admin: 11/24/17 17:41 Dose: Not Given Mupirocin (Bactroban Ointment) 0 gm TOP DAILY [facility] Last Admin: 11/25/17 10:55 Dose: 1 applic Pantoprazole Sodium (Protonix Ec Tab) 40 mg PO DAILY [facility] Last Admin: 11/25/17 10:55 Dose: Not Given Povidone Iodine (Betadine 10% Oint) 0 gm TOP DAILY [facility] Tamsulosin HCl (Flomax) 0.8 mg PO DAILY [facility] Last Admin: 11/25/17 10:55 Dose: Not Given Valproate Sodium (Depakene Cap) 250 mg PO BID [facility] Last Admin: 11/25/17 10:55 Dose: Not Given - Labs Labs: 11/25/17 05:53 11/25/17 05:55 PT 18.9 SECONDS (9.7-12.2) H 11/22/17 19:09 INR 1.7 11/22/17 19:09 APTT 45 SECONDS (21-34) H 11/22/17 19:09
[2017-11-25 13:08] LABS: C-PEPTIDE 6.02 ng/mL (0.80-3.85)
[2017-11-25] MEDS: Albuterol-Ipratrop 3 mg / 0.5 (3 ml) UD INH SCH ×2 (13:42→20:05)
--- NOTE | 2017-11-25 14:29 | CP.CCUPN ---
<Judie Corrales - Last Filed: 11/25/17 14:11> CCU Subjective - Physician Review Subjective (Free Text): Patient is been seen and examined at bedside. ROS unavailable due to patient's mental status. Patient is very lethargic CCU Objective - Vital Signs / Intake & Output Intake and Output (Last 8hrs): Intake & Output 11/24/17 11/25/17 11/25/17 22:59 06:59 14:59 Intake Total 900 950 Output Total 385 470 Balance 515 480 Weight 210 lb Intake: Intake, IV Amount 900 950 Left Antecubital 800 950 Right Wrist 100 Output: Urine 385 470 Urethral ([place]) 385 470 - Physical Exam Head: Positive for: Atraumatic, Normocephalic Extroacular Muscles: Positive for: EOMI Conjunctiva: Positive for: Normal Respiratory/Chest: Positive for: Clear to Auscultation Cardiovascular: Positive for: Normal S1, S2. Negative for: Bradycardic Abdomen: Positive for: Normal Bowel Sounds. Negative for: Tenderness, Distention Lower Extremity: Positive for: Other (B/L Lower Ext. Erythema. Skin is Dry. Traumatic avulsion of the left 2nd toenail) Psychiatric: Positive for: Alert, Agitated - Medications Active Medications: Active Medications Generic Name Dose Route Start Last Admin Trade Name Freq PRN Reason Stop Dose Admin Albuterol/Ipratropium 3 ml 11/25/17 14:00 11/25/17 13:42 Duoneb 3 Mg/0.5 Mg (3 Ml) Ud INH 3 ml RQ6 GHANSHYAM Administration Dextrose 50 ml 11/23/17 12:09 11/24/17 02:04 Dextrose 50% Inj IV 50 ml Q2H PRN Administration Hypoglycemia Finasteride 5 mg 11/25/17 10:00 11/25/17 10:55 Proscar PO Not Given DAILY GHANSHYAM Meropenem 500 mg/ Sodium 100 mls @ 100 mls/hr 11/23/17 12:00 11/25/17 12:30 Chloride IVPB 100 mls/hr Q12H GHANSHYAM Administration Protocol Dextrose/Sodium Chloride 1,000 mls @ 100 mls/hr 11/24/17 10:30 11/25/17 06:16 Dextrose 5%/0.9% Ns 1000 Ml IV 100 mls/hr .Q10H GHANSHYAM Administration Insulin Human Regular 0 unit 11/23/17 07:30 11/25/17 11:37 Novolin R SC Not Given ACHS [facility] Protocol Mirtazapine 15 mg 11/23/17 18:00 11/24/17 17:41 Remeron PO Not Given QPM [facility] Mupirocin 0 gm 11/25/17 12:01 Bactroban Ointment TOP DAILY [facility] Pantoprazole Sodium 40 mg 11/23/17 10:00 11/25/17 10:55 Protonix Ec Tab PO Not Given DAILY [facility] Tamsulosin HCl 0.8 mg 11/23/17 10:00 11/25/17 10:55 Flomax PO Not Given DAILY [facility] Valproate Sodium 250 mg 11/23/17 10:00 11/25/17 10:55 Depakene Cap PO Not Given BID [facility] - Patient Studies Lab Studies: Microbiology Studies 11/22/17 23:10 Blood Culture - Final Blood Escherichia Coli Gram Stain - Final 11/22/17 23:10 Blood Culture - Preliminary Blood NO GROWTH AFTER 48 HOURS 11/23/17 00:53 MRSA Culture (Admit) - Final Naris MRSA NOT DETECTED 11/22/17 21:14 Urine Culture - Final Urine,Catheterized No Growth (<1,000 CFU/ML) Lab Studies 11/25/17 11/25/17 11/25/17 Range/Units 11:36 11:32 09:53 WBC (4.8-10.8) K/uL RBC (4.40-5.90) Mil/uL Hgb (12.0-18.0) g/dL Hct (35.0-51.0) % MCV (80.0-94.0) fL MCH (27.0-31.0) pg MCHC (33.0-37.0) g/dL RDW (11.5-14.5) % Plt Count (130-400) K/uL MPV (7.2-11.7) fL Neut % (Auto) (50.0-75.0) % Lymph % (Auto) (20.0-40.0) % [place] % (Auto) (0.0-10.0) % Eos % (Auto) (0.0-4.0) % Baso % (Auto) (0.0-2.0) % Neut # (Auto) (1.8-7.0) K/uL Lymph # (Auto) (1.0-4.3) K/uL [place] # (Auto) (0.0-0.8) K/uL Eos # (Auto) (0.0-0.7) K/uL Baso # (Auto) (0.0-0.2) K/uL Neutrophils % (Manual) (50-75) % Band Neutrophils % (0-2) % Lymphocytes % (Manual) (20-40) % Monocytes % (Manual) (0-10) % Toxic Granulation Platelet Estimate (NORMAL) Polychromasia Hypochromasia (manual) Poikilocytosis (manual Anisocytosis (manual) Ovalocytes Puncture Site pCO2 (35-45) mm/Hg pO2 (80-100) mm/Hg HCO3 (21-28) mmol/L ABG pH (7.35-7.45) ABG Total CO2 (22-28) mmol/L ABG O2 Saturation (95-98) % ABG Base Excess (-2.0-3.0) mmol/L Joseph Test ABG Potassium (3.6-5.2) mmol/L A-a O2 Difference mm/Hg Respiratory Index Sodium (132-148) mmol/l Chloride (98-107) mmol/L Glucose (75-110) mg/dl Lactate (0.7-2.1) mmol/L Liter Flow FiO2 % Potassium (3.6-5.2) mmol/L Carbon Dioxide (22-30) mmol/L Anion Gap (10-20) BUN (9-20) mg/dL Creatinine (0.8-1.5) mg/dL Est GFR ( Amer) Est GFR (Non-Af Amer) POC Glucose (mg/dL) 80 84 (65-110) mg/dL Random Glucose (75-110) mg/dL C-Peptide (0.80-3.85) ng/mL Calcium (8.6-10.4) mg/dl Phosphorus (2.5-4.5) mg/dL Magnesium (1.6-2.3) mg/dL Total Bilirubin (0.2-1.3) mg/dL AST (17-59) U/L ALT (21-72) U/L Alkaline Phosphatase (38-126) U/L Total Protein (6.3-8.3) g/dL Albumin (3.5-5.0) g/dL Globulin (2.2-3.9) gm/dL Albumin/Globulin Ratio (1.0-2.1) Arterial Blood Potassium (3.6-5.2) mmol/L Valproic Acid < 10.0 L (50.0-100.0) ug/mL 11/25/17 11/25/17 11/25/17 Range/Units 07:20 06:19 05:55 WBC (4.8-10.8) K/uL RBC (4.40-5.90) Mil/uL Hgb (12.0-18.0) g/dL Hct (35.0-51.0) % MCV (80.0-94.0) fL MCH (27.0-31.0) pg MCHC (33.0-37.0) g/dL RDW (11.5-14.5) % Plt Count (130-400) K/uL MPV (7.2-11.7) fL Neut % (Auto) (50.0-75.0) % Lymph % (Auto) (20.0-40.0) % [place] % (Auto) (0.0-10.0) % Eos % (Auto) (0.0-4.0) % Baso % (Auto) (0.0-2.0) % Neut # (Auto) (1.8-7.0) K/uL Lymph # (Auto) (1.0-4.3) K/uL [place] # (Auto) (0.0-0.8) K/uL Eos # (Auto) (0.0-0.7) K/uL Baso # (Auto) (0.0-0.2) K/uL Neutrophils % (Manual) (50-75) % Band Neutrophils % (0-2) % Lymphocytes % (Manual) (20-40) % Monocytes % (Manual) (0-10) % Toxic Granulation Platelet Estimate (NORMAL) Polychromasia Hypochromasia (manual) Poikilocytosis (manual Anisocytosis (manual) Ovalocytes Puncture Site pCO2 (35-45) mm/Hg pO2 (80-100) mm/Hg HCO3 (21-28) mmol/L ABG pH (7.35-7.45) ABG Total CO2 (22-28) mmol/L ABG O2 Saturation (95-98) % ABG Base Excess (-2.0-3.0) mmol/L Joseph Test ABG Potassium (3.6-5.2) mmol/L A-a O2 Difference mm/Hg Respiratory Index Sodium 147 (132-148) mmol/l Chloride 117 H (98-107) mmol/L Glucose (75-110) mg/dl Lactate (0.7-2.1) mmol/L Liter Flow FiO2 % Potassium 4.4 (3.6-5.2) mmol/L Carbon Dioxide 21 L (22-30) mmol/L Anion Gap 13 (10-20) BUN 43 H (9-20) mg/dL Creatinine 1.3 (0.8-1.5) mg/dL Est GFR ( Amer) > 60 Est GFR (Non-Af Amer) 54 POC Glucose (mg/dL) 98 102 (65-110) mg/dL Random Glucose 75 (75-110) mg/dL C-Peptide (0.80-3.85) ng/mL Calcium 7.4 L (8.6-10.4) mg/dl Phosphorus 3.1 (2.5-4.5) mg/dL Magnesium 2.3 (1.6-2.3) mg/dL Total Bilirubin 1.4 H (0.2-1.3) mg/dL AST 247 H D (17-59) U/L ALT 100 H D (21-72) U/L Alkaline Phosphatase 85 (38-126) U/L Total Protein 4.8 L (6.3-8.3) g/dL Albumin 2.1 L (3.5-5.0) g/dL Globulin 2.6 (2.2-3.9) gm/dL Albumin/Globulin Ratio 0.8 L (1.0-2.1) Arterial Blood Potassium (3.6-5.2) mmol/L Valproic Acid (50.0-100.0) ug/mL 11/25/17 11/25/17 11/25/17 Range/Units 05:53 03:50 01:59 WBC 23.4 H (4.8-10.8) K/uL RBC 3.74 L (4.40-5.90) Mil/uL Hgb 11.3 L (12.0-18.0) g/dL Hct 33.6 L (35.0-51.0) % MCV 89.8 (80.0-94.0) fL MCH 30.3 (27.0-31.0) pg MCHC 33.8 (33.0-37.0) g/dL RDW 15.0 H (11.5-14.5) % Plt Count 44 L D (130-400) K/uL MPV 12.0 H (7.2-11.7) fL Neut % (Auto) 91.6 H (50.0-75.0) % Lymph % (Auto) 1.9 L (20.0-40.0) % [place] % (Auto) 5.9 (0.0-10.0) % Eos % (Auto) 0.3 (0.0-4.0) % Baso % (Auto) 0.3 (0.0-2.0) % Neut # (Auto) 21.5 H (1.8-7.0) K/uL Lymph # (Auto) 0.4 L (1.0-4.3) K/uL [place] # (Auto) 1.4 H (0.0-0.8) K/uL Eos # (Auto) 0.1 (0.0-0.7) K/uL Baso # (Auto) 0.1 (0.0-0.2) K/uL Neutrophils % (Manual) 79 H (50-75) % Band Neutrophils % 15 H* (0-2) % Lymphocytes % (Manual) 2 L (20-40) % Monocytes % (Manual) 4 (0-10) % Toxic Granulation Present Platelet Estimate Decreased L (NORMAL) Polychromasia Slight Hypochromasia (manual) Slight Poikilocytosis (manual Slight Anisocytosis (manual) Slight Ovalocytes Slight Puncture Site pCO2 (35-45) mm/Hg pO2 (80-100) mm/Hg HCO3 (21-28) mmol/L ABG pH (7.35-7.45) ABG Total CO2 (22-28) mmol/L ABG O2 Saturation (95-98) % ABG Base Excess (-2.0-3.0) mmol/L Joseph Test ABG Potassium (3.6-5.2) mmol/L A-a O2 Difference mm/Hg Respiratory Index Sodium (132-148) mmol/l Chloride (98-107) mmol/L Glucose (75-110) mg/dl Lactate (0.7-2.1) mmol/L Liter Flow FiO2 % Potassium (3.6-5.2) mmol/L Carbon Dioxide (22-30) mmol/L Anion Gap (10-20) BUN (9-20) mg/dL Creatinine (0.8-1.5) mg/dL Est GFR ( Amer) Est GFR (Non-Af Amer) POC Glucose (mg/dL) 90 88 (65-110) mg/dL Random Glucose (75-110) mg/dL C-Peptide (0.80-3.85) ng/mL Calcium (8.6-10.4) mg/dl Phosphorus (2.5-4.5) mg/dL Magnesium (1.6-2.3) mg/dL Total Bilirubin (0.2-1.3) mg/dL AST (17-59) U/L ALT (21-72) U/L Alkaline Phosphatase (38-126) U/L Total Protein (6.3-8.3) g/dL Albumin (3.5-5.0) g/dL Globulin (2.2-3.9) gm/dL Albumin/Globulin Ratio (1.0-2.1) Arterial Blood Potassium (3.6-5.2) mmol/L Valproic Acid (50.0-100.0) ug/mL 11/24/17 11/24/17 11/24/17 Range/Units 23:37 21:57 19:56 WBC (4.8-10.8) K/uL RBC (4.40-5.90) Mil/uL Hgb (12.0-18.0) g/dL Hct (35.0-51.0) % MCV (80.0-94.0) fL MCH (27.0-31.0) pg MCHC (33.0-37.0) g/dL RDW (11.5-14.5) % Plt Count (130-400) K/uL MPV (7.2-11.7) fL Neut % (Auto) (50.0-75.0) % Lymph % (Auto) (20.0-40.0) % [place] % (Auto) (0.0-10.0) % Eos % (Auto) (0.0-4.0) % Baso % (Auto) (0.0-2.0) % Neut # (Auto) (1.8-7.0) K/uL Lymph # (Auto) (1.0-4.3) K/uL [place] # (Auto) (0.0-0.8) K/uL Eos # (Auto) (0.0-0.7) K/uL Baso # (Auto) (0.0-0.2) K/uL Neutrophils % (Manual) (50-75) % Band Neutrophils % (0-2) % Lymphocytes % (Manual) (20-40) % Monocytes % (Manual) (0-10) % Toxic Granulation Platelet Estimate (NORMAL) Polychromasia Hypochromasia (manual) Poikilocytosis (manual Anisocytosis (manual) Ovalocytes Puncture Site pCO2 (35-45) mm/Hg pO2 (80-100) mm/Hg HCO3 (21-28) mmol/L ABG pH (7.35-7.45) ABG Total CO2 (22-28) mmol/L ABG O2 Saturation (95-98) % ABG Base Excess (-2.0-3.0) mmol/L Joseph Test ABG Potassium (3.6-5.2) mmol/L A-a O2 Difference mm/Hg Respiratory Index Sodium (132-148) mmol/l Chloride (98-107) mmol/L Glucose (75-110) mg/dl Lactate (0.7-2.1) mmol/L Liter Flow FiO2 % Potassium (3.6-5.2) mmol/L Carbon Dioxide (22-30) mmol/L Anion Gap (10-20) BUN (9-20) mg/dL Creatinine (0.8-1.5) mg/dL Est GFR ( Amer) Est GFR (Non-Af Amer) POC Glucose (mg/dL) 110 108 93 (65-110) mg/dL Random Glucose (75-110) mg/dL C-Peptide (0.80-3.85) ng/mL Calcium (8.6-10.4) mg/dl Phosphorus (2.5-4.5) mg/dL Magnesium (1.6-2.3) mg/dL Total Bilirubin (0.2-1.3) mg/dL AST (17-59) U/L ALT (21-72) U/L Alkaline Phosphatase (38-126) U/L Total Protein (6.3-8.3) g/dL Albumin (3.5-5.0) g/dL Globulin (2.2-3.9) gm/dL Albumin/Globulin Ratio (1.0-2.1) Arterial Blood Potassium (3.6-5.2) mmol/L Valproic Acid (50.0-100.0) ug/mL 11/24/17 11/24/17 11/24/17 Range/Units 18:03 17:26 16:02 WBC (4.8-10.8) K/uL RBC (4.40-5.90) Mil/uL Hgb (12.0-18.0) g/dL Hct (35.0-51.0) % MCV (80.0-94.0) fL MCH (27.0-31.0) pg MCHC (33.0-37.0) g/dL RDW (11.5-14.5) % Plt Count (130-400) K/uL MPV (7.2-11.7) fL Neut % (Auto) (50.0-75.0) % Lymph % (Auto) (20.0-40.0) % [place] % (Auto) (0.0-10.0) % Eos % (Auto) (0.0-4.0) % Baso % (Auto) (0.0-2.0) % Neut # (Auto) (1.8-7.0) K/uL Lymph # (Auto) (1.0-4.3) K/uL [place] # (Auto) (0.0-0.8) K/uL Eos # (Auto) (0.0-0.7) K/uL Baso # (Auto) (0.0-0.2) K/uL Neutrophils % (Manual) (50-75) % Band Neutrophils % (0-2) % Lymphocytes % (Manual) (20-40) % Monocytes % (Manual) (0-10) % Toxic Granulation Platelet Estimate (NORMAL) Polychromasia Hypochromasia (manual) Poikilocytosis (manual Anisocytosis (manual) Ovalocytes Puncture Site Rr pCO2 33 L (35-45) mm/Hg pO2 98 (80-100) mm/Hg HCO3 20.8 L (21-28) mmol/L ABG pH 7.37 (7.35-7.45) ABG Total CO2 20.1 L (22-28) mmol/L ABG O2 Saturation 99.3 H (95-98) % ABG Base Excess -5.3 L (-2.0-3.0) mmol/L Joseph Test Unable ABG Potassium 3.8 (3.6-5.2) mmol/L A-a O2 Difference 117.0 mm/Hg Respiratory Index 1.2 Sodium 143.0 (132-148) mmol/l Chloride 118.0 H (98-107) mmol/L Glucose 81 (75-110) mg/dl Lactate 1.2 (0.7-2.1) mmol/L Liter Flow 4.0 FiO2 36.0 % Potassium (3.6-5.2) mmol/L Carbon Dioxide (22-30) mmol/L Anion Gap (10-20) BUN (9-20) mg/dL Creatinine (0.8-1.5) mg/dL Est GFR ( Amer) Est GFR (Non-Af Amer) POC Glucose (mg/dL) 88 85 (65-110) mg/dL Random Glucose (75-110) mg/dL C-Peptide (0.80-3.85) ng/mL Calcium (8.6-10.4) mg/dl Phosphorus (2.5-4.5) mg/dL Magnesium (1.6-2.3) mg/dL Total Bilirubin (0.2-1.3) mg/dL AST (17-59) U/L ALT (21-72) U/L Alkaline Phosphatase (38-126) U/L Total Protein (6.3-8.3) g/dL Albumin (3.5-5.0) g/dL Globulin (2.2-3.9) gm/dL Albumin/Globulin Ratio (1.0-2.1) Arterial Blood Potassium 3.8 (3.6-5.2) mmol/L Valproic Acid (50.0-100.0) ug/mL 11/23/17 Range/Units 17:22 WBC (4.8-10.8) K/uL RBC (4.40-5.90) Mil/uL Hgb (12.0-18.0) g/dL Hct (35.0-51.0) % MCV (80.0-94.0) fL MCH (27.0-31.0) pg MCHC (33.0-37.0) g/dL RDW (11.5-14.5) % Plt Count (130-400) K/uL MPV (7.2-11.7) fL Neut % (Auto) (50.0-75.0) % Lymph % (Auto) (20.0-40.0) % [place] % (Auto) (0.0-10.0) % Eos % (Auto) (0.0-4.0) % Baso % (Auto) (0.0-2.0) % Neut # (Auto) (1.8-7.0) K/uL Lymph # (Auto) (1.0-4.3) K/uL [place] # (Auto) (0.0-0.8) K/uL Eos # (Auto) (0.0-0.7) K/uL Baso # (Auto) (0.0-0.2) K/uL Neutrophils % (Manual) (50-75) % Band Neutrophils % (0-2) % Lymphocytes % (Manual) (20-40) % Monocytes % (Manual) (0-10) % Toxic Granulation Platelet Estimate (NORMAL) Polychromasia Hypochromasia (manual) Poikilocytosis (manual Anisocytosis (manual) Ovalocytes Puncture Site pCO2 (35-45) mm/Hg pO2 (80-100) mm/Hg HCO3 (21-28) mmol/L ABG pH (7.35-7.45) ABG Total CO2 (22-28) mmol/L ABG O2 Saturation (95-98) % ABG Base Excess (-2.0-3.0) mmol/L Joseph Test ABG Potassium (3.6-5.2) mmol/L A-a O2 Difference mm/Hg Respiratory Index Sodium (132-148) mmol/l Chloride (98-107) mmol/L Glucose (75-110) mg/dl Lactate (0.7-2.1) mmol/L Liter Flow FiO2 % Potassium (3.6-5.2) mmol/L Carbon Dioxide (22-30) mmol/L Anion Gap (10-20) BUN (9-20) mg/dL Creatinine (0.8-1.5) mg/dL Est GFR ( Amer) Est GFR (Non-Af Amer) POC Glucose (mg/dL) (65-110) mg/dL Random Glucose (75-110) mg/dL C-Peptide 6.02 H (0.80-3.85) ng/mL Calcium (8.6-10.4) mg/dl Phosphorus (2.5-4.5) mg/dL Magnesium (1.6-2.3) mg/dL Total Bilirubin (0.2-1.3) mg/dL AST (17-59) U/L ALT (21-72) U/L Alkaline Phosphatase (38-126) U/L Total Protein (6.3-8.3) g/dL Albumin (3.5-5.0) g/dL Globulin (2.2-3.9) gm/dL Albumin/Globulin Ratio (1.0-2.1) Arterial Blood Potassium (3.6-5.2) mmol/L Valproic Acid (50.0-100.0) ug/mL Laboratory Results - last 24 hr 11/23/17 11/24/17 11/24/17 17:22 16:02 17:26 WBC RBC Hgb Hct MCV MCH MCHC RDW Plt Count MPV Neut % (Auto) Lymph % (Auto) [place] % (Auto) Eos % (Auto) Baso % (Auto) Neut # (Auto) Lymph # (Auto) [place] # (Auto) Eos # (Auto) Baso # (Auto) Neutrophils % (Manual) Band Neutrophils % Lymphocytes % (Manual) Monocytes % (Manual) Toxic Granulation Platelet Estimate Polychromasia Hypochromasia (manual) Poikilocytosis (manual Anisocytosis (manual) Ovalocytes Puncture Site Rr pCO2 33 L pO2 98 HCO3 20.8 L ABG pH 7.37 ABG Total CO2 20.1 L ABG O2 Saturation 99.3 H ABG Base Excess -5.3 L Joseph Test Unable ABG Potassium 3.8 A-a O2 Difference 117.0 Respiratory Index 1.2 Sodium 143.0 Chloride 118.0 H Glucose 81 Lactate 1.2 Liter Flow 4.0 FiO2 36.0 Potassium Carbon Dioxide Anion Gap BUN Creatinine Est GFR ( Amer) Est GFR (Non-Af Amer) POC Glucose (mg/dL) 85 Random Glucose C-Peptide 6.02 H Calcium Phosphorus Magnesium Total Bilirubin AST ALT Alkaline Phosphatase Total Protein Albumin Globulin Albumin/Globulin Ratio Arterial Blood Potassium 3.8 Valproic Acid 11/24/17 11/24/17 11/24/17 18:03 19:56 21:57 WBC RBC Hgb Hct MCV MCH MCHC RDW Plt Count MPV Neut % (Auto) Lymph % (Auto) [place] % (Auto) Eos % (Auto) Baso % (Auto) Neut # (Auto) Lymph # (Auto) [place] # (Auto) Eos # (Auto) Baso # (Auto) Neutrophils % (Manual) Band Neutrophils % Lymphocytes % (Manual) Monocytes % (Manual) Toxic Granulation Platelet Estimate Polychromasia Hypochromasia (manual) Poikilocytosis (manual Anisocytosis (manual) Ovalocytes Puncture Site pCO2 pO2 HCO3 ABG pH ABG Total CO2 ABG O2 Saturation ABG Base Excess Joseph Test ABG Potassium A-a O2 Difference Respiratory Index Sodium Chloride Glucose Lactate Liter Flow FiO2 Potassium Carbon Dioxide Anion Gap BUN Creatinine Est GFR ( Amer) Est GFR (Non-Af Amer) POC Glucose (mg/dL) 88 93 108 Random Glucose C-Peptide Calcium Phosphorus Magnesium Total Bilirubin AST ALT Alkaline Phosphatase Total Protein Albumin Globulin Albumin/Globulin Ratio Arterial Blood Potassium Valproic Acid 11/24/17 11/25/17 11/25/17 23:37 01:59 03:50 WBC RBC Hgb Hct MCV MCH MCHC RDW Plt Count MPV Neut % (Auto) Lymph % (Auto) [place] % (Auto) Eos % (Auto) Baso % (Auto) Neut # (Auto) Lymph # (Auto) [place] # (Auto) Eos # (Auto) Baso # (Auto) Neutrophils % (Manual) Band Neutrophils % Lymphocytes % (Manual) Monocytes % (Manual) Toxic Granulation Platelet Estimate Polychromasia Hypochromasia (manual) Poikilocytosis (manual Anisocytosis (manual) Ovalocytes Puncture Site pCO2 pO2 HCO3 ABG pH ABG Total CO2 ABG O2 Saturation ABG Base Excess Joseph Test ABG Potassium A-a O2 Difference Respiratory Index Sodium Chloride Glucose Lactate Liter Flow FiO2 Potassium Carbon Dioxide Anion Gap BUN Creatinine Est GFR ( Amer) Est GFR (Non-Af Amer) POC Glucose (mg/dL) 110 88 90 Random Glucose C-Peptide Calcium Phosphorus Magnesium Total Bilirubin AST ALT Alkaline Phosphatase Total Protein Albumin Globulin Albumin/Globulin Ratio Arterial Blood Potassium Valproic Acid 11/25/17 11/25/17 11/25/17 05:53 05:55 06:19 WBC 23.4 H RBC 3.74 L Hgb 11.3 L Hct 33.6 L MCV 89.8 MCH 30.3 MCHC 33.8 RDW 15.0 H Plt Count 44 L D MPV 12.0 H Neut % (Auto) 91.6 H Lymph % (Auto) 1.9 L [place] % (Auto) 5.9 Eos % (Auto) 0.3 Baso % (Auto) 0.3 Neut # (Auto) 21.5 H Lymph # (Auto) 0.4 L [place] # (Auto) 1.4 H Eos # (Auto) 0.1 Baso # (Auto) 0.1 Neutrophils % (Manual) 79 H Band Neutrophils % 15 H* Lymphocytes % (Manual) 2 L Monocytes % (Manual) 4 Toxic Granulation Present Platelet Estimate Decreased L Polychromasia Slight Hypochromasia (manual) Slight Poikilocytosis (manual Slight Anisocytosis (manual) Slight Ovalocytes Slight Puncture Site pCO2 pO2 HCO3 ABG pH ABG Total CO2 ABG O2 Saturation ABG Base Excess Joseph Test ABG Potassium A-a O2 Difference Respiratory Index Sodium 147 Chloride 117 H Glucose Lactate Liter Flow FiO2 Potassium 4.4 Carbon Dioxide 21 L Anion Gap 13 BUN 43 H Creatinine 1.3 Est GFR ( Amer) > 60 Est GFR (Non-Af Amer) 54 POC Glucose (mg/dL) 102 Random Glucose 75 C-Peptide Calcium 7.4 L Phosphorus 3.1 Magnesium 2.3 Total Bilirubin 1.4 H AST 247 H D ALT 100 H D Alkaline Phosphatase 85 Total Protein 4.8 L Albumin 2.1 L Globulin 2.6 Albumin/Globulin Ratio 0.8 L Arterial Blood Potassium Valproic Acid 11/25/17 11/25/17 11/25/17 07:20 09:53 11:32 WBC RBC Hgb Hct MCV MCH MCHC RDW Plt Count MPV Neut % (Auto) Lymph % (Auto) [place] % (Auto) Eos % (Auto) Baso % (Auto) Neut # (Auto) Lymph # (Auto) [place] # (Auto) Eos # (Auto) Baso # (Auto) Neutrophils % (Manual) Band Neutrophils % Lymphocytes % (Manual) Monocytes % (Manual) Toxic Granulation Platelet Estimate Polychromasia Hypochromasia (manual) Poikilocytosis (manual Anisocytosis (manual) Ovalocytes Puncture Site pCO2 pO2 HCO3 ABG pH ABG Total CO2 ABG O2 Saturation ABG Base Excess Joseph Test ABG Potassium A-a O2 Difference Respiratory Index Sodium Chloride Glucose Lactate Liter Flow FiO2 Potassium Carbon Dioxide Anion Gap BUN Creatinine Est GFR ( Amer) Est GFR (Non-Af Amer) POC Glucose (mg/dL) 98 84 Random Glucose C-Peptide Calcium Phosphorus Magnesium Total Bilirubin AST ALT Alkaline Phosphatase Total Protein Albumin Globulin Albumin/Globulin Ratio Arterial Blood Potassium Valproic Acid < 10.0 L 11/25/17 11:36 WBC RBC Hgb Hct MCV MCH MCHC RDW Plt Count MPV Neut % (Auto) Lymph % (Auto) [place] % (Auto) Eos % (Auto) Baso % (Auto) Neut # (Auto) Lymph # (Auto) [place] # (Auto) Eos # (Auto) Baso # (Auto) Neutrophils % (Manual) Band Neutrophils % Lymphocytes % (Manual) Monocytes % (Manual) Toxic Granulation Platelet Estimate Polychromasia Hypochromasia (manual) Poikilocytosis (manual Anisocytosis (manual) Ovalocytes Puncture Site pCO2 pO2 HCO3 ABG pH ABG Total CO2 ABG O2 Saturation ABG Base Excess Joseph Test ABG Potassium A-a O2 Difference Respiratory Index Sodium Chloride Glucose Lactate Liter Flow FiO2 Potassium Carbon Dioxide Anion Gap BUN Creatinine Est GFR ( Amer) Est GFR (Non-Af Amer) POC Glucose (mg/dL) 80 Random Glucose C-Peptide Calcium Phosphorus Magnesium Total Bilirubin AST ALT Alkaline Phosphatase Total Protein Albumin Globulin Albumin/Globulin Ratio Arterial Blood Potassium Valproic Acid Fingerstick Blood Sugar Results: 80 Review of Systems - Review of Systems Systems not reviewed;Unavailable: Altered Mental Status Critical Care Progress Note - Nutrition Nutrition: Nutrition Category Date Time Status Heart Healthy Diet [DIET] Diets 11/22/17 Dinner Active Assessment/Plan - Assessment and Plan (Free Text) Assessment: 72 y/o male with h/o Asthma, Benign Prostatic Hyperplasia Bipolar Disorder, CHF , COPD, Depression, HTN, Hypercholesterolemia, Schizophrenia presents to the ED following fall at half-way. Admitted to ICU for hypotension and Sepsis w/ bandemia. Plan: Neuro: GCS: 12 Sedation: None A: AMS CT Head (Adm): Vasoactive Edema in Left Frontal Lobe MRI Ordered Cardio A: OK (Type II), Hx of HTN, HLD Consider Statin. Pulm A: Hypoxia, Hx of Asthma, Hx of COPD Tolerating 3L 02 NC ID A: Sepsis, Leukocytosis (Improving) Bandemia (Worsening), Elevated Lactate ( Improved), WBC: 15.0 --> 33.2--->35.9-->23.4 BAND Neutrophils POSITIVE - 21-->22-->15 Urine Culture from Urologist POSITIVE for ESBL Cont. Meropenem 500 Q12 Tylenol PRN for fever Blood Cultures - Positive for. E. Coli w/ ESBL sensitive to Meropenem Urine Cultures - Negative MRSA Culture - Not detected Wound Culture - Follow UP UA (11/22): POSITIVE Leuk ES, WBCs, Urine RBCs, Urine Bacteria ID Consulted, Recs Appreciated Endo: A: Hypoglycemia (Recurrent) d50 PRN C-Peptide lvls Elevated Insulin Lvls - PENDING Endocrinology Consulted GI A: Elevated LFT's (Improving) Psych: A: Schizoaffective DO, Depression Ativan 1 Q6H for anxiety or Agitation. Valproic Acid 250mg BID Remeron 15mg PO QPM Valproic Acid Level (Low) Renal A: Hematuria s/p Cystoscopy on 11/23/17 (Resolved), AMADEO on CKD, BPH Renally Dose Ab/s Fluids: D5 in NS @ 100mls/hr Flomax 0.8mg PO Daily Urology on Consult Proph Protonix Hold DVT proph due to hematuria Diet - Heart Healthy PICC Line Ordered - Friend Called who was listed on this POLST To make medical decisions but stated he cannot make decisions for him. Cousin called using number on the chart but phone is not in service Palliative Care consulted for Goals of Care and POLST. Patient seen and discussed with Attending Judie Corrales, PGY-1 <King Quinteros M - Last Filed: 11/26/17 14:35> CCU Objective - Vital Signs / Intake & Output Vital Signs (Last 4 hours): Vital Signs Pulse Resp Pulse Ox 11/26/17 14:00 99 H 14 76 L 11/26/17 13:00 81 34 H 99 11/26/17 12:00 77 14 99 11/26/17 11:00 102 H 33 H 92 L Intake and Output (Last 8hrs): Intake & Output 11/25/17 11/26/17 11/26/17 22:59 06:59 14:59 Intake Total 425 450 675 Output Total 920 500 300 Balance -495 -50 375 Weight 209 lb Intake: Intake, IV Amount 400 450 575 Left Antecubital 400 450 575 Oral 25 100 Output: Urine 920 500 300 Urethral ([place]awk) 920 500 300 Other: # Bowel Movements 0 - Medications Active Medications: Active Medications Generic Name Dose Route Start Last Admin Trade Name Freq PRN Reason Stop Dose Admin Albuterol/Ipratropium 3 ml 11/25/17 14:00 11/26/17 13:27 Duoneb 3 Mg/0.5 Mg (3 Ml) Ud INH 3 ml RQ6 GHANSHYAM Administration Dextrose 50 ml 11/23/17 12:09 11/24/17 02:04 Dextrose 50% Inj IV 50 ml Q2H PRN Administration Hypoglycemia Finasteride 5 mg 11/25/17 10:00 11/25/17 10:55 Proscar PO Not Given DAILY GHANSHYAM Meropenem 500 mg/ Sodium 100 mls @ 100 mls/hr 11/23/17 12:00 11/25/17 23:30 Chloride IVPB 100 mls/hr Q12H GHANSHYAM Administration Protocol Dextrose 1,000 mls @ 75 mls/hr 11/26/17 09:00 Dextrose 5% In Water 1000 Ml IV .[id number] [facility] Insulin Human Regular 0 unit 11/25/17 16:30 11/25/17 22:41 Novolin R SC Not Given ACHS GHANSHYAM Protocol Mirtazapine 15 mg 11/23/17 18:00 11/25/17 17:04 Remeron PO Not Given QPM [facility] Mupirocin 0 gm 11/25/17 12:01 Bactroban Ointment TOP DAILY [facility] Pantoprazole Sodium 40 mg 11/23/17 10:00 11/25/17 10:55 Protonix Ec Tab PO Not Given DAILY [facility] Tamsulosin HCl 0.8 mg 11/23/17 10:00 11/25/17 10:55 Flomax PO Not Given DAILY [facility] - Patient Studies Lab Studies: Microbiology Studies 11/24/17 06:55 Gram Stain - Final Leg - Right Wound Culture - Final Coagulase Neg Staphylococcus 11/22/17 23:10 Blood Culture - Preliminary Blood NO GROWTH AFTER 3 DAYS 11/22/17 23:10 Blood Culture - Final Blood Escherichia Coli Gram Stain - Final Lab Studies 11/26/17 11/26/17 11/26/17 Range/Units 11:23 07:45 06:18 WBC 18.8 H (4.8-10.8) K/uL RBC 3.94 L (4.40-5.90) Mil/uL Hgb 12.0 (12.0-18.0) g/dL Hct 35.6 (35.0-51.0) % MCV 90.5 (80.0-94.0) fL MCH 30.5 (27.0-31.0) pg MCHC 33.7 (33.0-37.0) g/dL RDW 15.3 H (11.5-14.5) % Plt Count 34 L (130-400) K/uL MPV 12.1 H (7.2-11.7) fL Neut % (Auto) 88.6 H (50.0-75.0) % Lymph % (Auto) 4.4 L (20.0-40.0) % [place] % (Auto) 5.9 (0.0-10.0) % Eos % (Auto) 0.8 (0.0-4.0) % Baso % (Auto) 0.3 (0.0-2.0) % Neut # (Auto) 16.6 H (1.8-7.0) K/uL Lymph # (Auto) 0.8 L (1.0-4.3) K/uL [place] # (Auto) 1.1 H (0.0-0.8) K/uL Eos # (Auto) 0.2 (0.0-0.7) K/uL Baso # (Auto) 0.1 (0.0-0.2) K/uL Neutrophils % (Manual) 82 H (50-75) % Band Neutrophils % 8 H (0-2) % Lymphocytes % (Manual) 4 L (20-40) % Monocytes % (Manual) 5 (0-10) % Basophils % (Manual) 1 (0-2) % Platelet Estimate Markedly decreased L (NORMAL) Polychromasia Slight Hypochromasia (manual) Slight Anisocytosis (manual) Slight Sodium (132-148) mmol/L Potassium (3.6-5.2) mmol/L Chloride (98-107) mmol/L Carbon Dioxide (22-30) mmol/L Anion Gap (10-20) BUN (9-20) mg/dL Creatinine (0.8-1.5) mg/dL Est GFR ( Amer) Est GFR (Non-Af Amer) POC Glucose (mg/dL) 103 94 (65-110) mg/dL Random Glucose (75-110) mg/dL Insulin Level (2.0-19.6) uIU/mL Calcium (8.6-10.4) mg/dl Total Bilirubin (0.2-1.3) mg/dL AST (17-59) U/L ALT (21-72) U/L Alkaline Phosphatase (38-126) U/L Total Protein (6.3-8.3) g/dL Albumin (3.5-5.0) g/dL Globulin (2.2-3.9) gm/dL Albumin/Globulin Ratio (1.0-2.1) TSH 3rd Generation (0.46-4.68) mIU/L Cortisol AM Sample (4.46-22.7) ug/dL 11/26/17 11/26/17 11/25/17 Range/Units 06:16 06:16 22:03 WBC (4.8-10.8) K/uL RBC (4.40-5.90) Mil/uL Hgb (12.0-18.0) g/dL Hct (35.0-51.0) % MCV (80.0-94.0) fL MCH (27.0-31.0) pg MCHC (33.0-37.0) g/dL RDW (11.5-14.5) % Plt Count (130-400) K/uL MPV (7.2-11.7) fL Neut % (Auto) (50.0-75.0) % Lymph % (Auto) (20.0-40.0) % [place] % (Auto) (0.0-10.0) % Eos % (Auto) (0.0-4.0) % Baso % (Auto) (0.0-2.0) % Neut # (Auto) (1.8-7.0) K/uL Lymph # (Auto) (1.0-4.3) K/uL [place] # (Auto) (0.0-0.8) K/uL Eos # (Auto) (0.0-0.7) K/uL Baso # (Auto) (0.0-0.2) K/uL Neutrophils % (Manual) (50-75) % Band Neutrophils % (0-2) % Lymphocytes % (Manual) (20-40) % Monocytes % (Manual) (0-10) % Basophils % (Manual) (0-2) % Platelet Estimate (NORMAL) Polychromasia Hypochromasia (manual) Anisocytosis (manual) Sodium 150 H (132-148) mmol/L Potassium 4.6 (3.6-5.2) mmol/L Chloride 119 H (98-107) mmol/L Carbon Dioxide 24 (22-30) mmol/L Anion Gap 12 (10-20) BUN 47 H (9-20) mg/dL Creatinine 1.3 (0.8-1.5) mg/dL Est GFR ( Amer) > 60 Est GFR (Non-Af Amer) 54 POC Glucose (mg/dL) 93 (65-110) mg/dL Random Glucose 74 L (75-110) mg/dL Insulin Level (2.0-19.6) uIU/mL Calcium 8.1 L (8.6-10.4) mg/dl Total Bilirubin 1.3 (0.2-1.3) mg/dL AST 152 H D (17-59) U/L ALT 92 H (21-72) U/L Alkaline Phosphatase 86 (38-126) U/L Total Protein 5.2 L (6.3-8.3) g/dL Albumin 2.3 L (3.5-5.0) g/dL Globulin 2.9 (2.2-3.9) gm/dL Albumin/Globulin Ratio 0.8 L (1.0-2.1) TSH 3rd Generation 2.29 (0.46-4.68) mIU/L Cortisol AM Sample 17.5 (4.46-22.7) ug/dL 11/25/17 11/25/17 11/25/17 Range/Units 19:55 17:53 16:05 WBC (4.8-10.8) K/uL RBC (4.40-5.90) Mil/uL Hgb (12.0-18.0) g/dL Hct (35.0-51.0) % MCV (80.0-94.0) fL MCH (27.0-31.0) pg MCHC (33.0-37.0) g/dL RDW (11.5-14.5) % Plt Count (130-400) K/uL MPV (7.2-11.7) fL Neut % (Auto) (50.0-75.0) % Lymph % (Auto) (20.0-40.0) % [place] % (Auto) (0.0-10.0) % Eos % (Auto) (0.0-4.0) % Baso % (Auto) (0.0-2.0) % Neut # (Auto) (1.8-7.0) K/uL Lymph # (Auto) (1.0-4.3) K/uL [place] # (Auto) (0.0-0.8) K/uL Eos # (Auto) (0.0-0.7) K/uL Baso # (Auto) (0.0-0.2) K/uL Neutrophils % (Manual) (50-75) % Band Neutrophils % (0-2) % Lymphocytes % (Manual) (20-40) % Monocytes % (Manual) (0-10) % Basophils % (Manual) (0-2) % Platelet Estimate (NORMAL) Polychromasia Hypochromasia (manual) Anisocytosis (manual) Sodium (132-148) mmol/L Potassium (3.6-5.2) mmol/L Chloride (98-107) mmol/L Carbon Dioxide (22-30) mmol/L Anion Gap (10-20) BUN (9-20) mg/dL Creatinine (0.8-1.5) mg/dL Est GFR ( Amer) Est GFR (Non-Af Amer) POC Glucose (mg/dL) 92 82 80 (65-110) mg/dL Random Glucose (75-110) mg/dL Insulin Level (2.0-19.6) uIU/mL Calcium (8.6-10.4) mg/dl Total Bilirubin (0.2-1.3) mg/dL AST (17-59) U/L ALT (21-72) U/L Alkaline Phosphatase (38-126) U/L Total Protein (6.3-8.3) g/dL Albumin (3.5-5.0) g/dL Globulin (2.2-3.9) gm/dL Albumin/Globulin Ratio (1.0-2.1) TSH 3rd Generation (0.46-4.68) mIU/L Cortisol AM Sample (4.46-22.7) ug/dL 11/25/17 11/24/17 Range/Units 14:36 06:28 WBC (4.8-10.8) K/uL RBC (4.40-5.90) Mil/uL Hgb (12.0-18.0) g/dL Hct (35.0-51.0) % MCV (80.0-94.0) fL MCH (27.0-31.0) pg MCHC (33.0-37.0) g/dL RDW (11.5-14.5) % Plt Count (130-400) K/uL MPV (7.2-11.7) fL Neut % (Auto) (50.0-75.0) % Lymph % (Auto) (20.0-40.0) % [place] % (Auto) (0.0-10.0) % Eos % (Auto) (0.0-4.0) % Baso % (Auto) (0.0-2.0) % Neut # (Auto) (1.8-7.0) K/uL Lymph # (Auto) (1.0-4.3) K/uL [place] # (Auto) (0.0-0.8) K/uL Eos # (Auto) (0.0-0.7) K/uL Baso # (Auto) (0.0-0.2) K/uL Neutrophils % (Manual) (50-75) % Band Neutrophils % (0-2) % Lymphocytes % (Manual) (20-40) % Monocytes % (Manual) (0-10) % Basophils % (Manual) (0-2) % Platelet Estimate (NORMAL) Polychromasia Hypochromasia (manual) Anisocytosis (manual) Sodium (132-148) mmol/L Potassium (3.6-5.2) mmol/L Chloride (98-107) mmol/L Carbon Dioxide (22-30) mmol/L Anion Gap (10-20) BUN (9-20) mg/dL Creatinine (0.8-1.5) mg/dL Est GFR ( Amer) Est GFR (Non-Af Amer) POC Glucose (mg/dL) 71 (65-110) mg/dL Random Glucose (75-110) mg/dL Insulin Level 7.9 (2.0-19.6) uIU/mL Calcium (8.6-10.4) mg/dl Total Bilirubin (0.2-1.3) mg/dL AST (17-59) U/L ALT (21-72) U/L Alkaline Phosphatase (38-126) U/L Total Protein (6.3-8.3) g/dL Albumin (3.5-5.0) g/dL Globulin (2.2-3.9) gm/dL Albumin/Globulin Ratio (1.0-2.1) TSH 3rd Generation (0.46-4.68) mIU/L Cortisol AM Sample (4.46-22.7) ug/dL Laboratory Results - last 24 hr 11/24/17 11/25/17 11/25/17 06:28 14:36 16:05 WBC RBC Hgb Hct MCV MCH MCHC RDW Plt Count MPV Neut % (Auto) Lymph % (Auto) [place] % (Auto) Eos % (Auto) Baso % (Auto) Neut # (Auto) Lymph # (Auto) [place] # (Auto) Eos # (Auto) Baso # (Auto) Neutrophils % (Manual) Band Neutrophils % Lymphocytes % (Manual) Monocytes % (Manual) Basophils % (Manual) Platelet Estimate Polychromasia Hypochromasia (manual) Anisocytosis (manual) Sodium Potassium Chloride Carbon Dioxide Anion Gap BUN Creatinine Est GFR ( Amer) Est GFR (Non-Af Amer) POC Glucose (mg/dL) 71 80 Random Glucose Insulin Level 7.9 Calcium Total Bilirubin AST ALT Alkaline Phosphatase Total Protein Albumin Globulin Albumin/Globulin Ratio TSH 3rd Generation Cortisol AM Sample 05/11/25/17 11/25/17 17:53 19:55 22:03 WBC RBC Hgb Hct MCV MCH MCHC RDW Plt Count MPV Neut % (Auto) Lymph % (Auto) [place] % (Auto) Eos % (Auto) Baso % (Auto) Neut # (Auto) Lymph # (Auto) [place] # (Auto) Eos # (Auto) Baso # (Auto) Neutrophils % (Manual) Band Neutrophils % Lymphocytes % (Manual) Monocytes % (Manual) Basophils % (Manual) Platelet Estimate Polychromasia Hypochromasia (manual) Anisocytosis (manual) Sodium Potassium Chloride Carbon Dioxide Anion Gap BUN Creatinine Est GFR ( Amer) Est GFR (Non-Af Amer) POC Glucose (mg/dL) 82 92 93 Random Glucose Insulin Level Calcium Total Bilirubin AST ALT Alkaline Phosphatase Total Protein Albumin Globulin Albumin/Globulin Ratio TSH 3rd Generation Cortisol AM Sample 11/26/17 11/26/17 11/26/17 06:16 06:16 06:18 WBC 18.8 H RBC 3.94 L Hgb 12.0 Hct 35.6 MCV 90.5 MCH 30.5 MCHC 33.7 RDW 15.3 H Plt Count 34 L MPV 12.1 H Neut % (Auto) 88.6 H Lymph % (Auto) 4.4 L [place] % (Auto) 5.9 Eos % (Auto) 0.8 Baso % (Auto) 0.3 Neut # (Auto) 16.6 H Lymph # (Auto) 0.8 L [place] # (Auto) 1.1 H Eos # (Auto) 0.2 Baso # (Auto) 0.1 Neutrophils % (Manual) 82 H Band Neutrophils % 8 H Lymphocytes % (Manual) 4 L Monocytes % (Manual) 5 Basophils % (Manual) 1 Platelet Estimate Markedly decreased L Polychromasia Slight Hypochromasia (manual) Slight Anisocytosis (manual) Slight Sodium 150 H Potassium 4.6 Chloride 119 H Carbon Dioxide 24 Anion Gap 12 BUN 47 H Creatinine 1.3 Est GFR ( Amer) > 60 Est GFR (Non-Af Amer) 54 POC Glucose (mg/dL) Random Glucose 74 L Insulin Level Calcium 8.1 L Total Bilirubin 1.3 AST 152 H D ALT 92 H Alkaline Phosphatase 86 Total Protein 5.2 L Albumin 2.3 L Globulin 2.9 Albumin/Globulin Ratio 0.8 L TSH 3rd Generation 2.29 Cortisol AM Sample .5 11/26/17 11/26/17 07:45 11:23 WBC RBC Hgb Hct MCV MCH MCHC RDW Plt Count MPV Neut % (Auto) Lymph % (Auto) [place] % (Auto) Eos % (Auto) Baso % (Auto) Neut # (Auto) Lymph # (Auto) [place] # (Auto) Eos # (Auto) Baso # (Auto) Neutrophils % (Manual) Band Neutrophils % Lymphocytes % (Manual) Monocytes % (Manual) Basophils % (Manual) Platelet Estimate Polychromasia Hypochromasia (manual) Anisocytosis (manual) Sodium Potassium Chloride Carbon Dioxide Anion Gap BUN Creatinine Est GFR ( Amer) Est GFR (Non-Af Amer) POC Glucose (mg/dL) 94 103 Random Glucose Insulin Level Calcium Total Bilirubin AST ALT Alkaline Phosphatase Total Protein Albumin Globulin Albumin/Globulin Ratio TSH 3rd Generation Cortisol AM Sample Critical Care Progress Note - Nutrition Nutrition: Nutrition Category Date Time Status Heart Healthy Diet [DIET] Diets 11/22/17 Dinner Active Assessment/Plan - Assessment and Plan (Free Text) Plan: Above patient seen and examined at bedside with above resident. Above resident note reviewed and verified. Patient admitted to ICU for septic shock -not in shock -sepsis: source possible urine, continue abx as per ID -During rounds, patient was drowsy -- d/c ativan -psych eval for rx for schzioaffective disorder -continue to monitor in ICU - Date & Time Date: 11/25/17 Time: 15:00
[2017-11-25] MEDS ORDERED: Dextrose 5%/0.9% NS 1,000 ML IV SCH (17:00)
--- NOTE | 2017-11-25 17:23 | RAD ---
HISTORY: SOB COMPARISON: 11/22/2017 FINDINGS: LUNGS: Patchy opacity at right lung base new since prior examination. Rule out pneumonia. Follow-up advised. No other abnormal pulmonary opacity. PLEURA: No significant pleural effusion identified, no pneumothorax apparent. CARDIOVASCULAR: Normal. OSSEOUS STRUCTURES: No significant abnormalities. VISUALIZED UPPER ABDOMEN: Normal. OTHER FINDINGS: None. IMPRESSION: Patchy right basilar opacity. Possible pneumonia. Follow-up advised.
--- NOTE | 2017-11-25 21:50 | PN ---
DATE: LOCATION: ICU, room 4. HISTORY: This is a 72-year-old male admitted with bacteremia and possible septicemia with supervening hypotension, concomitant leukocytosis and is now being referred for recurrent symptomatic hypoglycemia as noted thereof. PAST MEDICAL HISTORY: History of hypertensive cardiovascular disease and dyslipidemia, history of coronary artery disease with previous admissions for congestive heart failure, history of chronic obstructive lung disease and also previous asthmatic bronchitis. He has also known history of chronic schizoaffective disorder with schizophrenia, currently on psychotropic medications. No known history of any diabetic condition nor intake of any oral hypoglycemic therapy is noted. However, the patient has been on a low dose sliding scale coverage in the hospital. FAMILY HISTORY: Positive for hypertension and heart disease. SOCIAL HISTORY: The patient, as reported by family, no known substance use. REVIEW OF SYSTEMS: As mentioned above with weakness with episodic bouts of dizziness and lightheadedness, worse on the day of admission. Also admitted to bifrontal headaches with visual blurring and increasing bouts of somnolence and lethargy. No chest pains, but admits to episodic bouts of shortness of breath, especially on exertion. His oral intake has been variable with nausea, dyspepsia, and vague upper abdominal pains. No recent alterations of bowel and urinary patterns. PHYSICAL EXAMINATION: GENERAL: An average-built male in no apparent distress. VITAL SIGNS: Blood pressure 130/70, pulse of 90 beats per minute and regular, temperature 99, respirations 20, height is 6 feet 1 inch, weight is 210 pounds. HEENT: Head is normocephalic. Eyes are anicteric with pink conjunctivae. Funduscopy not possible at this time. Ears, nose, and throat otherwise normal. NECK: Supple. Thyroid gland is normal size. No carotid bruits or any cervical adenopathy. CARDIOPULMONARY: Adynamic precordium. S1 and S2 are rapid and regular. LUNGS: Clear to auscultation. ABDOMEN: Flat, soft with positive bowel sounds. EXTREMITIES: No peripheral edema. Pulses are +2 bilaterally. LABORATORY DATA: Hematology: Initial WBC was 35.9, hemoglobin of 12.5, hematocrit of 36.9, MCV 90, and platelets 69,000. The glucose levels have raised from 71 to 75 and 84 mg/dL. ASSESSMENT: This is a 72-year-old male with bacteremia and possible septicemia with marked leukocytosis and supervening hypotension and hospital episodic bouts of symptomatic hypoglycemia with neuroglycopenic and hypoadrenergic manifestations of the same. However, the patient has also been given a low dose correction scale with regular insulin as ordered with no obvious hyperglycemic accelerations thereof. The most likely etiology of the hypoglycemia would be multifactorial especially in the light of very poor and suboptimal nutritional intake with supervening bacteremia and possible septicemia which can contribute to the hypoglycemic episodes as noted thereof. With his advanced age, it is quite unlikely that we are dealing with an autoimmune endocrinopathy causing hypoglycemia thereof. PLAN OF MANAGEMENT: We will modify the coverage scale of the insulin regimen and we will receive only minimal coverage for glucose above 300 as ordered thereof. However, we will also obtain a baseline serum C-peptide level which will ascertain the induction of pancreatic reserve and they already have sent out a serum insulin level as noted. We will also add a serum cortisol and thyroid studies to exclude any underlying endocrinopathy. We will encourage improved protein and carb intake at this time especially with underlying bacteremia as the patient is in a high catabolic state as noted. We will obtain serum chemistry and supplement accordingly as needed. We will follow with you. Ximena Guerrero MD
--- NOTE | 2017-11-25 23:02 | CP.PCM.PN ---
Subjective - Date & Time of Evaluation Date of Evaluation: 11/25/17 Time of Evaluation: 23:02 - Subjective Subjective: CHIEF COMPLAINTS TODAY : afebrile, confused , +folys blood tinged urine ROS. on observation only HEENT : N. Resp : No cough, wheezing ,pleuritic CP ,or hemoptysis Cardio : No anginal CP, PND, orthopnea, palpitation GI : No abd.pain, n/v ,diarrhea or GI bleeding . TANK WASHER : No headache, vertigo, focal deficit. Musculoskel : No joint swelling , Derm : No rash Psych : Normal affect. Ext : No swelling ,calf pain LT FOOT IN DRESSING +ve FOLY PE. Pt. is CONFUSED, LETHARGIC V.S As noted in the chart Head ,ear nose,throat and eyes : Normal. Neck : Supple with normal carotids. Lungs: Clear air entry. Heart : S1 & S2 normal with S4. No murmur. Abd : MILD TENDERNESS SUPRAPUBIC, with normal bowel sounds. Neuro : Moves all ext. with no localized deficit. Ext : 1+ edema with intact pulses.TRAUMATIC AVULSION OF LT. 2ND TOE NAIL. CHRONIC STASIS DERMATITIS CHANGES B/L LE.). Negative for: calf tenderness Derm : No rashes or decubitus ulcer. LABS/RADIOLOGY: BLOOD CULTURE - GNR 1:2 SETS. URINE CULTUR - -VE LFTS IMPROVING CREAT 1.3 ASSESSMENT SEPTIC SHOCK/BANDEMIA GRAM-NEGATIV SEPSIS-SOURCE HEMATURIA S/P CYSTOSCOPY. RENAL INSUFFICIENCY. TRANSAMINITIS ? SHOCK LIVER BPH. /PLAN IV AMIKACIN 500MG IVPB X1 DOSE 11/24/17. CONTINUE IV MERREM 500MG IV [id number]/24/17 F/U LFTS. IV FLUIDS PER PMD Objective - Vital Signs/Intake and Output Vital Signs (last 24 hours): Temp Pulse Resp BP Pulse Ox 98.5 F 78 13 108/71 98 11/25/17 19:55 11/25/17 22:00 11/25/17 22:00 11/25/17 22:00 11/25/17 22:00 Intake and Output: 11/25/17 11/26/17 18:59 06:59 Intake Total 825 200 Output Total 895 535 Balance -70 -335 - Medications Medications: Current Medications Albuterol/Ipratropium (Duoneb 3 Mg/0.5 Mg (3 Ml) Ud) 3 ml INH RQ6 [facility] Last Admin: 11/25/17 20:05 Dose: Not Given Dextrose (Dextrose 50% Inj) 50 ml IV Q2H PRN PRN Reason: Hypoglycemia Last Admin: 11/24/17 02:04 Dose: 50 ml Finasteride (Proscar) 5 mg PO DAILY [facility] Last Admin: 11/25/17 10:55 Dose: Not Given Meropenem 500 mg/ Sodium (Chloride) 100 mls @ 100 mls/hr IVPB Q12H [facility] PRN Reason: Protocol Last Admin: 11/25/17 12:30 Dose: 100 mls/hr Dextrose/Sodium Chloride (Dextrose 5%/0.9% Ns 1000 Ml) 1,000 mls @ 50 mls/hr IV .Q20H [facility] Last Admin: 11/25/17 17:04 Dose: 50 mls/hr Insulin Human Regular (Novolin R) 0 unit SC ACHS [facility] PRN Reason: Protocol Last Admin: 11/25/17 22:41 Dose: Not Given Mirtazapine (Remeron) 15 mg PO QPM [facility] Last Admin: 11/25/17 17:04 Dose: Not Given Mupirocin (Bactroban Ointment) 0 gm TOP DAILY [facility] Pantoprazole Sodium (Protonix Ec Tab) 40 mg PO DAILY [facility] Last Admin: 11/25/17 10:55 Dose: Not Given Tamsulosin HCl (Flomax) 0.8 mg PO DAILY [facility] Last Admin: 11/25/17 10:55 Dose: Not Given - Labs Labs: 11/25/17 05:53 11/25/17 05:55 PT 18.9 SECONDS (9.7-12.2) H 11/22/17 19:09 INR 1.7 11/22/17 19:09 APTT 45 SECONDS (21-34) H 11/22/17 19:09 Assessment and Plan (1) Septic shock Status: Acute (2) UTI (urinary tract infection) Status: Chronic (3) Gross hematuria Status: Acute (4) S/P cystoscopy Status: Acute (5) BPH (benign prostatic hyperplasia) Status: Chronic (6) Renal insufficiency Status: Acute
[2017-11-26] MEDS: Albuterol-Ipratrop 3 mg / 0.5 (3 ml) UD INH SCH ×4 (02:00→20:17)
--- NOTE | 2017-11-26 04:41 | CP.PCM.PN ---
Subjective - Date & Time of Evaluation Date of Evaluation: 11/25/17 Time of Evaluation: 19:00 - Subjective Subjective: Pt seen and examined at bedside, apperas very sick, weak and lethargic, afebrile , confused ,+folys blood tinged urine, on antibiotics, in ICU Objective - Vital Signs/Intake and Output Vital Signs (last 24 hours): Temp Pulse Resp BP Pulse Ox 98.5 F 70 14 106/60 98 11/26/17 00:00 11/26/17 02:00 11/26/17 02:00 11/26/17 01:45 11/26/17 02:00 Intake and Output: 11/25/17 11/26/17 18:59 06:59 Intake Total 825 450 Output Total 895 810 Balance -70 -360 - Medications Medications: Current Medications Albuterol/Ipratropium (Duoneb 3 Mg/0.5 Mg (3 Ml) Ud) 3 ml INH RQ6 [facility] Last Admin: 11/26/17 02:00 Dose: Not Given Dextrose (Dextrose 50% Inj) 50 ml IV Q2H PRN PRN Reason: Hypoglycemia Last Admin: 11/24/17 02:04 Dose: 50 ml Finasteride (Proscar) 5 mg PO DAILY [facility] Last Admin: 11/25/17 10:55 Dose: Not Given Meropenem 500 mg/ Sodium (Chloride) 100 mls @ 100 mls/hr IVPB Q12H [facility] PRN Reason: Protocol Last Admin: 11/25/17 23:30 Dose: 100 mls/hr Dextrose/Sodium Chloride (Dextrose 5%/0.9% Ns 1000 Ml) 1,000 mls @ 50 mls/hr IV .Q20H [facility] Last Admin: 11/25/17 17:04 Dose: 50 mls/hr Insulin Human Regular (Novolin R) 0 unit SC ACHS [facility] PRN Reason: Protocol Last Admin: 11/25/17 22:41 Dose: Not Given Mirtazapine (Remeron) 15 mg PO QPM [facility] Last Admin: 11/25/17 17:04 Dose: Not Given Mupirocin (Bactroban Ointment) 0 gm TOP DAILY [facility] Pantoprazole Sodium (Protonix Ec Tab) 40 mg PO DAILY [facility] Last Admin: 11/25/17 10:55 Dose: Not Given Tamsulosin HCl (Flomax) 0.8 mg PO DAILY [facility] Last Admin: 11/25/17 10:55 Dose: Not Given - Labs Labs: 11/25/17 05:53 11/25/17 05:55 PT 18.9 SECONDS (9.7-12.2) H 11/22/17 19:09 INR 1.7 11/22/17 19:09 APTT 45 SECONDS (21-34) H 11/22/17 19:09 - Constitutional Appears: In Acute Distress - Head Exam Head Exam: ATRAUMATIC, NORMAL INSPECTION, NORMOCEPHALIC - Eye Exam Eye Exam: EOMI, Normal appearance, PERRL Pupil Exam: NORMAL ACCOMODATION, PERRL - Respiratory Exam Respiratory Exam: Decreased Breath Sounds, Clear to Ausculation Bilateral, Rales - Cardiovascular Exam Cardiovascular Exam: REGULAR RHYTHM, +S1, +S2. absent: Murmur - GI/Abdominal Exam GI & Abdominal Exam: Soft, Normal Bowel Sounds. absent: Tenderness Assessment and Plan (1) Toxic metabolic encephalopathy Status: Acute (2) S/P cystoscopy Status: Acute (3) Sepsis Status: Acute (4) Leukocytosis Status: Acute (5) UTI (lower urinary tract infection) Status: Acute
[2017-11-26 06:31] LABS: BASO # 0.1 K/uL (0.0-0.2); BASO % 0.3 % (0.0-2.0); EOS # 0.2 K/uL (0.0-0.7); EOS % 0.8 % (0.0-4.0); LYMPH # 0.8 K/uL (1.0-4.3); LYMPH % 4.4 % (20.0-40.0); MEAN CELL VOLUME 90.5 fL (80.0-94.0); MEAN CORPUSCULAR HEMOGLOBIN 30.5 pg (27.0-31.0); MEAN CORPUSCULAR HGB CONC 33.7 g/dL (33.0-37.0); MEAN PLATELET VOLUME 12.1 fL (7.2-11.7); MONO # 1.1 K/uL (0.0-0.8); MONO % 5.9 % (0.0-10.0); NEUT # 16.6 K/uL (1.8-7.0); NEUT % 88.6 % (50.0-75.0); PLATELET COUNT 34 K/uL (130-400); RBC 3.94 Mil/uL (4.40-5.90); RED CELL DISTRIBUTION WIDTH 15.3 % (11.5-14.5); WHITE BLOOD COUNT 18.8 K/uL (4.8-10.8)
[2017-11-26 06:35] LABS: ALB/GLOB RATIO 0.8 (1.0-2.1); ALBUMIN 2.3 g/dL (3.5-5.0); ALT/SGPT 92 U/L (21-72); AST/SGOT 152 U/L (17-59); BLOOD UREA NITROGEN 47 mg/dL (9-20); CALCIUM 8.1 mg/dl (8.6-10.4); GFR AFRICAN-AMERICAN > 60; GFR NON-AFRICAN AMERICAN 54
[2017-11-26] MEDS: (Novolin R) Insulin Human Regular 100 units/ml vial SC SCH ×4 (07:50→22:44)
[2017-11-26 09:02] LABS: BANDS 8 % (0-2); BASOPHIL 1 % (0-2); LYMPHOCYTE 4 % (20-40); MONOCYTE 5 % (0-10); NEUTROPHIL 82 % (50-75); PLATELET ESTIMATE MARKEDLY DECREASED (NORMAL); TOTAL CELLS COUNTED 100
[2017-11-26 09:03] LABS: ANISOCYTOSIS SLIGHT; HYPOCHROMIC SLIGHT; POLYCHROMIC SLIGHT
--- NOTE | 2017-11-26 12:15 | CP.PCM.PN ---
Subjective - Date & Time of Evaluation Date of Evaluation: 11/26/17 Time of Evaluation: 12:14 - Subjective Subjective: Pulmonary Follow up Covering Dr. Perez The Patient was seen and examined at the bedside, Medical records reviewed, and management issues were discussed and formulated with the house staff. Events reviewed Patient confused and drowsy, ABG reviewed. Afebrile, NSR on the monitor Last 24H I&O reviewed Objective - Vital Signs/Intake and Output Vital Signs (last 24 hours): Temp Pulse Resp BP Pulse Ox 98.7 F 99 H 18 103/57 L 92 L 11/26/17 04:00 11/26/17 07:00 11/26/17 07:00 11/26/17 06:47 11/26/17 07:00 Intake and Output: 11/26/17 11/26/17 06:59 18:59 Intake Total 650 50 Output Total 1035 Balance -385 50 - Medications Medications: Current Medications Albuterol/Ipratropium (Duoneb 3 Mg/0.5 Mg (3 Ml) Ud) 3 ml INH RQ6 [facility] Last Admin: 11/26/17 08:20 Dose: 3 ml Dextrose (Dextrose 50% Inj) 50 ml IV Q2H PRN PRN Reason: Hypoglycemia Last Admin: 11/24/17 02:04 Dose: 50 ml Finasteride (Proscar) 5 mg PO DAILY [facility] Last Admin: 11/25/17 10:55 Dose: Not Given Meropenem 500 mg/ Sodium (Chloride) 100 mls @ 100 mls/hr IVPB Q12H [facility] PRN Reason: Protocol Last Admin: 11/25/17 23:30 Dose: 100 mls/hr Dextrose (Dextrose 5% In Water 1000 Ml) 1,000 mls @ 75 mls/hr IV .[id number] [facility] Insulin Human Regular (Novolin R) 0 unit SC ACHS [facility] PRN Reason: Protocol Last Admin: 11/25/17 22:41 Dose: Not Given Mirtazapine (Remeron) 15 mg PO QPM [facility] Last Admin: 11/25/17 17:04 Dose: Not Given Mupirocin (Bactroban Ointment) 0 gm TOP DAILY [facility] Pantoprazole Sodium (Protonix Ec Tab) 40 mg PO DAILY [facility] Last Admin: 11/25/17 10:55 Dose: Not Given Tamsulosin HCl (Flomax) 0.8 mg PO DAILY [facility] Last Admin: 11/25/17 10:55 Dose: Not Given - Labs Labs: 11/26/17 06:18 11/26/17 06:16 PT 18.9 SECONDS (9.7-12.2) H 11/22/17 19:09 INR 1.7 11/22/17 19:09 APTT 45 SECONDS (21-34) H 11/22/17 19:09 - Constitutional Appears: Well, No Acute Distress, Confused, Cachectic, Chronically Ill - Head Exam Head Exam: ATRAUMATIC, NORMAL INSPECTION - Eye Exam Eye Exam: EOMI. absent: Conjunctival injection - ENT Exam ENT Exam: Mucous Membranes Moist - Neck Exam Neck Exam: Lymphadenopathy, Normal Inspection. absent: Tenderness, Thyromegaly - Respiratory Exam Respiratory Exam: Decreased Breath Sounds, Rales, Rhonchi. absent: Chest Wall Tenderness, Clear to Ausculation Bilateral, Prolonged Expiratory Phase, Wheezes , Respiratory Distress - Cardiovascular Exam Cardiovascular Exam: +S1, +S2. absent: Bradycardia, Tachycardia - GI/Abdominal Exam GI & Abdominal Exam: Distended, Soft, Normal Bowel Sounds. absent: Bruit, Firm , Guarding, Rigid - Extremities Exam Extremities Exam: Normal Capillary Refill. absent: Calf Tenderness, Full ROM, Joint Swelling, Normal Inspection (B/L LE erythema) - Back Exam Back Exam: absent: CVA tenderness (L), CVA tenderness (R) - Neurological Exam Neurological Exam: Altered Assessment and Plan (1) COPD (chronic obstructive pulmonary disease) Assessment & Plan: Critically ill patient with acute hypoxemic respiratory failure, Respiratory acidosis septic shock Continue current management, medications reviewed, avoid all sedative. Continue Antibiotics Tolerating 3L 02 NC Continue nebulizer treatment diuretics as needed Status: Acute (2) Sepsis Assessment & Plan: Leukocytosis, Bandemia, Elevated Lactate (Improved), Urine Culture from Urologist POSITIVE for ESBL Cont. Vancomycin 1.25 Grams Daily started for cellultis Cont. Meropenem 500 Q12 Started for ESBL in Urine Tylenol PRN for fever Blood Cultures - POSITVE for Gram Neg. Rods Urine Cultures - Negative MRSA Culture - Not detected Wound Culture - P Status: Acute (3) Gross hematuria Status: Acute (4) Toxic metabolic encephalopathy Assessment & Plan: CT Head (Adm): Vasoactive Edema in Left Frontal Lobe Status: Acute (5) Elevated troponin Assessment & Plan: No ASA due to hematuria No BB due to hypotension Consider Statin. Status: Acute - Assessment and Plan (Free Text) Assessment: GI/DVT PPx Code status: Full code
[2017-11-26] MEDS: Meropenem 500 MG in Sodium Chloride 0.9% 100 ML IVPB SCH (12:49)
--- NOTE | 2017-11-26 14:41 | PN ---
DATE: ENDO FOLLOWUP NOTE LOCATION: In ICU, room 14 A. SUBJECTIVE: This is a 72-year-old male with recent admission for bacteremia with ESBL, positive cultures, currently receiving intensive IV antibiotic management and is being followed closely for hemodynamic monitoring because of recent hypotension on admission. Moreover, he also had bouts of hypoglycemia, currently on Dextrose infusion as given. His latest chemistries shows a BUN of 47, sodium 150, potassium 4.6, chloride 119, CO2 24, glucose 74, and creatinine 1.3. The serial glucose levels have ranged from 93 to 94 mg/dL. His serum cortisol level is 17.5, and TSH of 2.29. His C-peptide level was reported at 6.02 and a serum insulin level of 7.9, all of which are actually optimal as noted. It is clearly apparent biochemically that he has enough induction of pancreatic to override hypoglycemic episodes as noted. This will also exclude any endocrine-related autoimmune disorders at this time. ASSESSMENT: This is a 72-year-old male with bacteremia and supervening hypotension, currently hemodynamically improving and stable at this time. He also had episodic bouts of symptomatic hypoglycemia with associated neuroglycopenic and hyperadrenergic manifestations of the same. He remains confused at this time and refusing oral intake with very suboptimal nil portions even with feeding assistance by the Nursing staff. With the normal C-peptide and serum insulin levels, and also with the normal cortisol and thyroid function studies, we are able to exclude safely any underlying endocrine excess syndrome or any autoimmune endocrinopathy as noted. PLAN OF MANAGEMENT: We will continue the Dextrose infusion as given and try to augment his oral intake because at this point having septicemia and bacteremia would make him very hypercatabolic with increased protein and caloric requirements. Giving him peripheral hyperalimentation is kind of a last recourse if indeed his oral intake remains suboptimal at this time and hypoglycemic episodes persist, which is clearly nutritional at this point in time. We will obtain serum chemistries and supplement accordingly as needed. We will follow. Ximena Guerrero MD
--- NOTE | 2017-11-26 14:51 | CP.PCM.PN ---
Subjective - Date & Time of Evaluation Date of Evaluation: 11/26/17 Time of Evaluation: 14:43 - Subjective Subjective: Patient seen and examined at bedside. Patient more awake alert, speaking words repeatedly similar to tourett's Patient offers no complaints Objective - Vital Signs/Intake and Output Vital Signs (last 24 hours): Temp Pulse Resp BP Pulse Ox 98.7 F 99 H 14 116/73 76 L 11/26/17 04:00 11/26/17 14:00 11/26/17 14:00 11/26/17 08:45 11/26/17 14:00 Intake and Output: 11/26/17 11/26/17 06:59 18:59 Intake Total 650 675 Output Total 1035 300 Balance -385 375 - Medications Medications: Current Medications Albuterol/Ipratropium (Duoneb 3 Mg/0.5 Mg (3 Ml) Ud) 3 ml INH RQ6 [facility] Last Admin: 11/26/17 13:27 Dose: 3 ml Dextrose (Dextrose 50% Inj) 50 ml IV Q2H PRN PRN Reason: Hypoglycemia Last Admin: 11/24/17 02:04 Dose: 50 ml Finasteride (Proscar) 5 mg PO DAILY [facility] Last Admin: 11/25/17 10:55 Dose: Not Given Meropenem 500 mg/ Sodium (Chloride) 100 mls @ 100 mls/hr IVPB Q12H [facility] PRN Reason: Protocol Last Admin: 11/25/17 23:30 Dose: 100 mls/hr Dextrose (Dextrose 5% In Water 1000 Ml) 1,000 mls @ 75 mls/hr IV .[id number] [facility] Insulin Human Regular (Novolin R) 0 unit SC ACHS [facility] PRN Reason: Protocol Last Admin: 11/25/17 22:41 Dose: Not Given Mirtazapine (Remeron) 15 mg PO QPM [facility] Last Admin: 11/25/17 17:04 Dose: Not Given Mupirocin (Bactroban Ointment) 0 gm TOP DAILY [facility] Pantoprazole Sodium (Protonix Ec Tab) 40 mg PO DAILY [facility] Last Admin: 11/25/17 10:55 Dose: Not Given Tamsulosin HCl (Flomax) 0.8 mg PO DAILY [facility] Last Admin: 11/25/17 10:55 Dose: Not Given - Labs Labs: 11/26/17 06:18 11/26/17 06:16 PT 18.9 SECONDS (9.7-12.2) H 11/22/17 19:09 INR 1.7 11/22/17 19:09 APTT 45 SECONDS (21-34) H 11/22/17 19:09 - Head Exam Head Exam: ATRAUMATIC - Eye Exam Eye Exam: Normal appearance - Neck Exam Neck Exam: Full ROM - Respiratory Exam Respiratory Exam: Rales, NORMAL BREATHING PATTERN. absent: Wheezes - Cardiovascular Exam Cardiovascular Exam: REGULAR RHYTHM, +S1, +S2 - GI/Abdominal Exam GI & Abdominal Exam: Soft, Normal Bowel Sounds. absent: Guarding, Rigid - Neurological Exam Neurological Exam: Alert, Awake Assessment and Plan - Assessment and Plan (Free Text) Assessment: 72 y/o male with h/o Asthma, Benign Prostatic Hyperplasia Bipolar Disorder, CHF , COPD, Depression, HTN, Hypercholesterolemia, Schizophrenia presents to the ED following fall at senior care admitted to ICU for hypotension and Sepsis w/ bandemia. Sepsis: continue abx per ID -Hypotension resolved -Hematuria: continue to monitor urine output, continue watts management as per urology -Hypoxic respiratory failure/COPD: currently saturating well on nasal canula, cxr c/w congestion s/p lasix -hypernatremia/hypoglycemia: 2nd lasix, continue D5 maitenance phase -schizophrenia: more awake, continue to monitor, CT reveals left frontal -at risk fo CAD: hold antiplatelet 2nd hematuria, continue statin -start oral diet as patient more awake -AMADEO: resolving -continue dvt/pud ppx Patient remains hemodynamically stable with 1:1 2nd agitation.
--- NOTE | 2017-11-26 14:52 | CP.PCM.PN ---
Subjective - Date & Time of Evaluation Date of Evaluation: 11/26/17 Time of Evaluation: 11:00 - Subjective Subjective: Podiatry Progress Note- Dr. Lambert 72 yo male patient with PMHx of Asthma, Benign Prostatic Hyperplasia Bipolar Disorder, CHF, COPD, Depression, HTN, Hypercholesterolemia, Schizophrenia seen and evaluated for left foot 2nd digit traumatic nail avulsion and right foot digits abrasion. Patient was resting comfortably in bed with CPAP, unable to communicate. Expresses pain with palpation to ulceration sites. Objective - Vital Signs/Intake and Output Vital Signs (last 24 hours): Temp Pulse Resp BP Pulse Ox 98.7 F 99 H 14 116/73 76 L 11/26/17 04:00 11/26/17 14:00 11/26/17 14:00 11/26/17 08:45 11/26/17 14:00 Intake and Output: 11/26/17 11/26/17 06:59 18:59 Intake Total 650 675 Output Total 1035 300 Balance -385 375 - Medications Medications: Current Medications Albuterol/Ipratropium (Duoneb 3 Mg/0.5 Mg (3 Ml) Ud) 3 ml INH RQ6 [facility] Last Admin: 11/26/17 13:27 Dose: 3 ml Dextrose (Dextrose 50% Inj) 50 ml IV Q2H PRN PRN Reason: Hypoglycemia Last Admin: 11/24/17 02:04 Dose: 50 ml Finasteride (Proscar) 5 mg PO DAILY [facility] Last Admin: 11/25/17 10:55 Dose: Not Given Meropenem 500 mg/ Sodium (Chloride) 100 mls @ 100 mls/hr IVPB Q12H [facility] PRN Reason: Protocol Last Admin: 11/25/17 23:30 Dose: 100 mls/hr Dextrose (Dextrose 5% In Water 1000 Ml) 1,000 mls @ 75 mls/hr IV .[id number] [facility] Insulin Human Regular (Novolin R) 0 unit SC ACHS [facility] PRN Reason: Protocol Last Admin: 11/25/17 22:41 Dose: Not Given Mirtazapine (Remeron) 15 mg PO QPM [facility] Last Admin: 11/25/17 17:04 Dose: Not Given Mupirocin (Bactroban Ointment) 0 gm TOP DAILY [facility] Pantoprazole Sodium (Protonix Ec Tab) 40 mg PO DAILY [facility] Last Admin: 11/25/17 10:55 Dose: Not Given Tamsulosin HCl (Flomax) 0.8 mg PO DAILY [facility] Last Admin: 11/25/17 10:55 Dose: Not Given - Labs Labs: 11/26/17 06:18 11/26/17 06:16 PT 18.9 SECONDS (9.7-12.2) H 11/22/17 19:09 INR 1.7 11/22/17 19:09 APTT 45 SECONDS (21-34) H 11/22/17 19:09 - Constitutional Appears: Non-toxic, No Acute Distress - Extremities Exam Extremities Exam: absent: Calf Tenderness Additional comments: Left lower extremity exam DERM: LEFT foot: Open wound noted to Left foot 2nd digit secondary to traumatic nail avulsion. No active bleeding noted. No pus noted. No drainage noted. No sign of acute infection is noted. No mal-odor noted. No PTB. Nail bed wound measures 1cm x 1xm 0.4cm with granular base RIGHT foot: Superficial abrasions noted to the dorsum of the hallux and 2nd digit, granular base, no erythema, no clinical signs of infectino VASC: Palpable DP and PT at 2/4, HALL DIRECTOR less than 3 seconds to all digits Assessment and Plan - Assessment and Plan (Free Text) Assessment: 72 yo male patient presenting with Left foot 2nd digit traumatic nail avulsion and right hallux and 2nd digit superficial abrasions-stable Plan: Patient was seen, evaluated and treated with all questions and concerns addressed Discussed plan in detail with attending Dr. Lambert Labs and vitals reviewed Bilateral foot cleansed with saline solution, applied bactroban, dsd, and cling Ordered multipodus boots, to be worn at all times while in bed No plan for surgical intervention from podiatry standpoint Conservative treatment and local wound care to ulcerations Podiatry will continue to follow in-house
[2017-11-26] MEDS: Pantoprazole 40 mg EC Tab PO SCH (18:51)
--- NOTE | 2017-11-26 19:58 | CP.PCM.PN ---
Subjective - Date & Time of Evaluation Date of Evaluation: 11/26/17 Time of Evaluation: 19:58 - Subjective Subjective: CHIEF COMPLAINTS TODAY : afebrile, confused , +folys blood tinged urine ROS. on observation only HEENT : N. Resp : No cough, wheezing ,pleuritic CP ,or hemoptysis Cardio : No anginal CP, PND, orthopnea, palpitation GI : No abd.pain, n/v ,diarrhea or GI bleeding . KNITTER MECHANIC : No headache, vertigo, focal deficit. Musculoskel : No joint swelling , Derm : No rash Psych : Normal affect. Ext : No swelling ,calf pain LT FOOT IN DRESSING +ve FOLY PE. Pt. is CONFUSED, LETHARGIC V.S As noted in the chart Head ,ear nose,throat and eyes : Normal. Neck : Supple with normal carotids. Lungs: Clear air entry. Heart : S1 & S2 normal with S4. No murmur. Abd : MILD TENDERNESS SUPRAPUBIC, with normal bowel sounds. Neuro : Moves all ext. with no localized deficit. Ext : 1+ edema with intact pulses.TRAUMATIC AVULSION OF LT. 2ND TOE NAIL. CHRONIC STASIS DERMATITIS CHANGES B/L LE.). Negative for: calf tenderness Derm : No rashes or decubitus ulcer. LABS/RADIOLOGY: BLOOD CULTURE - +VE ESBL E.COLI URINE CULTUR - -VE LFTS IMPROVING, BILI 1.8 11/26/17 CREAT 1.2/BUN 41 ASSESSMENT SEPTIC SHOCK/BANDEMIA GRAM-NEGATIV SEPSIS-SOURCE HEMATURIA S/P CYSTOSCOPY. RENAL INSUFFICIENCY. TRANSAMINITIS ? SHOCK LIVER BPH. /PLAN IV AMIKACIN 500MG IVPB X1 DOSE 11/24/17. CONTINUE IV MERREM 500MG IV [id number].11/24/17 F/U LFTS. IV FLUIDS PER PMD LWC LT FOOT PER PODIATRY Objective - Vital Signs/Intake and Output Vital Signs (last 24 hours): Temp Pulse Resp BP Pulse Ox 98.7 F 70 15 116/73 93 L 11/26/17 16:00 11/26/17 19:00 11/26/17 19:00 11/26/17 08:45 11/26/17 19:00 Intake and Output: 11/26/17 11/27/17 18:59 06:59 Intake Total 1025 Output Total 600 Balance 425 - Medications Medications: Current Medications Albuterol/Ipratropium (Duoneb 3 Mg/0.5 Mg (3 Ml) Ud) 3 ml INH RQ6 [facility] Last Admin: 11/26/17 13:27 Dose: 3 ml Dextrose (Dextrose 50% Inj) 50 ml IV Q2H PRN PRN Reason: Hypoglycemia Last Admin: 11/24/17 02:04 Dose: 50 ml Finasteride (Proscar) 5 mg PO DAILY [facility] Last Admin: 11/26/17 18:51 Dose: Not Given Meropenem 500 mg/ Sodium (Chloride) 100 mls @ 100 mls/hr IVPB Q12H [facility] PRN Reason: Protocol Last Admin: 11/26/17 12:49 Dose: 100 mls/hr Dextrose (Dextrose 5% In Water 1000 Ml) 1,000 mls @ 75 mls/hr IV .[id number] [facility] Last Admin: 11/26/17 08:48 Dose: 75 mls/hr Insulin Human Regular (Novolin R) 0 unit SC ACHS [facility] PRN Reason: Protocol Last Admin: 11/26/17 18:51 Dose: Not Given Mirtazapine (Remeron) 15 mg PO QPM [facility] Last Admin: 11/26/17 18:51 Dose: Not Given Mupirocin (Bactroban Ointment) 0 gm TOP DAILY [facility] Last Admin: 11/26/17 09:46 Dose: 1 applic Pantoprazole Sodium (Protonix Ec Tab) 40 mg PO DAILY [facility] Last Admin: 11/26/17 18:51 Dose: Not Given Tamsulosin HCl (Flomax) 0.8 mg PO DAILY [facility] Last Admin: 11/26/17 18:49 Dose: Not Given - Labs Labs: 11/26/17 06:18 11/26/17 06:16 PT 18.9 SECONDS (9.7-12.2) H 11/22/17 19:09 INR 1.7 11/22/17 19:09 APTT 45 SECONDS (21-34) H 11/22/17 19:09 Assessment and Plan (1) Septic shock Status: Acute (2) UTI (urinary tract infection) Status: Chronic (3) Gross hematuria Status: Acute (4) S/P cystoscopy Status: Acute (5) BPH (benign prostatic hyperplasia) Status: Chronic (6) Renal insufficiency Status: Acute
[2017-11-27] MEDS: Meropenem 500 MG in Sodium Chloride 0.9% 100 ML IVPB SCH ×2 (00:05→11:57)
[2017-11-27] MEDS: Albuterol-Ipratrop 3 mg / 0.5 (3 ml) UD INH SCH ×4 (01:58→19:10)
[2017-11-27 06:48] LABS: BASO % 0.3 % (0.0-2.0); EOS # 0.2 K/uL (0.0-0.7); HEMOGLOBIN 12.8 g/dL (12.0-18.0); LYMPH # 0.8 K/uL (1.0-4.3); LYMPH % 7.8 % (20.0-40.0); MEAN CELL VOLUME 92.4 fL (80.0-94.0); MEAN CORPUSCULAR HGB CONC 33.6 g/dL (33.0-37.0); MEAN PLATELET VOLUME 11.7 fL (7.2-11.7); MONO # 1.3 K/uL (0.0-0.8); MONO % 12.3 % (0.0-10.0); NEUT # 8.3 K/uL (1.8-7.0); NEUT % 77.6 % (50.0-75.0); PLATELET COUNT 43 K/uL (130-400); RBC 4.14 Mil/uL (4.40-5.90); RED CELL DISTRIBUTION WIDTH 15.2 % (11.5-14.5); WHITE BLOOD COUNT 10.7 K/uL (4.8-10.8)
[2017-11-27 06:52] LABS: ALB/GLOB RATIO 0.8 (1.0-2.1); ALBUMIN 2.3 g/dL (3.5-5.0); ALT/SGPT 86 U/L (21-72); AST/SGOT 104 U/L (17-59); BLOOD UREA NITROGEN 41 mg/dL (9-20); CALCIUM 8.3 mg/dl (8.6-10.4); GFR AFRICAN-AMERICAN > 60; GFR NON-AFRICAN AMERICAN 60
--- NOTE | 2017-11-27 07:31 | CP.PCM.PN ---
Subjective - Date & Time of Evaluation Date of Evaluation: 11/27/17 Time of Evaluation: 18:00 - Subjective Subjective: Pt seen and examined at bedside, wbc is going down, pt is improving, is more alert, improved Objective - Vital Signs/Intake and Output Vital Signs (last 24 hours): Temp Pulse Resp BP Pulse Ox 98.7 F 63 20 127/62 100 11/27/17 04:00 11/27/17 07:00 11/27/17 07:00 11/27/17 06:45 11/27/17 07:00 Intake and Output: 11/27/17 11/27/17 06:59 18:59 Intake Total 1200 75 Output Total 620 55 Balance 580 20 - Medications Medications: Current Medications Albuterol/Ipratropium (Duoneb 3 Mg/0.5 Mg (3 Ml) Ud) 3 ml INH RQ6 [facility] Last Admin: 11/27/17 07:25 Dose: 3 ml Dextrose (Dextrose 50% Inj) 50 ml IV Q2H PRN PRN Reason: Hypoglycemia Last Admin: 11/24/17 02:04 Dose: 50 ml Finasteride (Proscar) 5 mg PO DAILY [facility] Last Admin: 11/26/17 18:51 Dose: Not Given Meropenem 500 mg/ Sodium (Chloride) 100 mls @ 100 mls/hr IVPB Q12H [facility] PRN Reason: Protocol Last Admin: 11/27/17 00:05 Dose: 100 mls/hr Dextrose (Dextrose 5% In Water 1000 Ml) 1,000 mls @ 75 mls/hr IV .[id number] [facility] Last Admin: 11/26/17 22:44 Dose: Not Given Insulin Human Regular (Novolin R) 0 unit SC ACHS [facility] PRN Reason: Protocol Last Admin: 11/26/17 22:44 Dose: Not Given Mirtazapine (Remeron) 15 mg PO QPM [facility] Last Admin: 11/26/17 18:51 Dose: Not Given Mupirocin (Bactroban Ointment) 0 gm TOP DAILY [facility] Last Admin: 11/26/17 09:46 Dose: 1 applic Pantoprazole Sodium (Protonix Ec Tab) 40 mg PO DAILY [facility] Last Admin: 11/26/17 18:51 Dose: Not Given Tamsulosin HCl (Flomax) 0.8 mg PO DAILY [facility] Last Admin: 11/26/17 18:49 Dose: Not Given - Labs Labs: 11/27/17 06:27 11/27/17 06:27 PT 18.9 SECONDS (9.7-12.2) H 11/22/17 19:09 INR 1.7 11/22/17 19:09 APTT 45 SECONDS (21-34) H 11/22/17 19:09 Assessment and Plan (1) Toxic metabolic encephalopathy Status: Acute (2) S/P cystoscopy Status: Acute (3) Sepsis Status: Acute (4) Leukocytosis Status: Acute (5) UTI (lower urinary tract infection) Status: Acute
--- NOTE | 2017-11-27 07:31 | CP.PCM.PN ---
Subjective - Date & Time of Evaluation Date of Evaluation: 11/26/17 Time of Evaluation: 19:50 - Subjective Subjective: Pt seen and examined at bedside, more alert, improving, E.Coli ESBL pt is on antibiotics and 1 to 1 watch Objective - Vital Signs/Intake and Output Vital Signs (last 24 hours): Temp Pulse Resp BP Pulse Ox 98.7 F 63 20 127/62 100 11/27/17 04:00 11/27/17 07:00 11/27/17 07:00 11/27/17 06:45 11/27/17 07:00 Intake and Output: 11/27/17 11/27/17 06:59 18:59 Intake Total 1200 75 Output Total 620 55 Balance 580 20 - Medications Medications: Current Medications Albuterol/Ipratropium (Duoneb 3 Mg/0.5 Mg (3 Ml) Ud) 3 ml INH RQ6 [facility] Last Admin: 11/27/17 07:25 Dose: 3 ml Dextrose (Dextrose 50% Inj) 50 ml IV Q2H PRN PRN Reason: Hypoglycemia Last Admin: 11/24/17 02:04 Dose: 50 ml Finasteride (Proscar) 5 mg PO DAILY [facility] Last Admin: 11/26/17 18:51 Dose: Not Given Meropenem 500 mg/ Sodium (Chloride) 100 mls @ 100 mls/hr IVPB Q12H [facility] PRN Reason: Protocol Last Admin: 11/27/17 00:05 Dose: 100 mls/hr Dextrose (Dextrose 5% In Water 1000 Ml) 1,000 mls @ 75 mls/hr IV .[id number] [facility] Last Admin: 11/26/17 22:44 Dose: Not Given Insulin Human Regular (Novolin R) 0 unit SC ACHS [facility] PRN Reason: Protocol Last Admin: 11/26/17 22:44 Dose: Not Given Mirtazapine (Remeron) 15 mg PO QPM [facility] Last Admin: 11/26/17 18:51 Dose: Not Given Mupirocin (Bactroban Ointment) 0 gm TOP DAILY [facility] Last Admin: 11/26/17 09:46 Dose: 1 applic Pantoprazole Sodium (Protonix Ec Tab) 40 mg PO DAILY [facility] Last Admin: 11/26/17 18:51 Dose: Not Given Tamsulosin HCl (Flomax) 0.8 mg PO DAILY [facility] Last Admin: 11/26/17 18:49 Dose: Not Given - Labs Labs: 11/27/17 06:27 11/27/17 06:27 PT 18.9 SECONDS (9.7-12.2) H 11/22/17 19:09 INR 1.7 11/22/17 19:09 APTT 45 SECONDS (21-34) H 11/22/17 19:09 - Constitutional Appears: No Acute Distress - Head Exam Head Exam: ATRAUMATIC, NORMAL INSPECTION, NORMOCEPHALIC - Eye Exam Eye Exam: EOMI, Normal appearance, PERRL Pupil Exam: NORMAL ACCOMODATION, PERRL - Respiratory Exam Respiratory Exam: Decreased Breath Sounds, Rhonchi - Cardiovascular Exam Cardiovascular Exam: REGULAR RHYTHM, +S1, +S2. absent: Murmur - GI/Abdominal Exam GI & Abdominal Exam: Soft, Normal Bowel Sounds. absent: Tenderness Assessment and Plan (1) Toxic metabolic encephalopathy Status: Acute (2) S/P cystoscopy Status: Acute (3) Sepsis Status: Acute (4) Leukocytosis Status: Acute (5) UTI (lower urinary tract infection) Status: Acute
--- NOTE | 2017-11-27 09:02 | RAD ---
HISTORY: eval congstoin COMPARISON: Portable chest 11/25/2017 prior FINDINGS: LUNGS: Left hemidiaphragm elevation reiterated. Study appears somewhat underpenetrated diminished airspace disease seen in the right base with linear atelectasis lateral to the right perihilar region and right base. Trace patchy atelectasis or infiltrate seen the left base. PLEURA: No pneumothorax bilaterally. No right pleural effusion. Minimal left pleural effusion is in question. CARDIOVASCULAR: Normal. OSSEOUS STRUCTURES: No significant abnormalities. VISUALIZED UPPER ABDOMEN: Normal. OTHER FINDINGS: None. IMPRESSION: Diminished right-sided airspace disease with limited linear atelectasis remaining with limited patchy atelectasis developing in the left base. Trace left pleural effusion evident.
[2017-11-27 10:11] LABS: BANDS 1 % (0-2); LYMPHOCYTE 13 % (20-40); MONOCYTE 12 % (0-10); NEUTROPHIL 74 % (50-75); TOTAL CELLS COUNTED 100
[2017-11-27 10:12] LABS: PLATELET ESTIMATE DECREASED (NORMAL)
[2017-11-27 10:14] LABS: ANISOCYTOSIS SLIGHT
[2017-11-27 10:15] LABS: GIANT PLATELETS PRESENT; LARGE PLATELETS PRESENT
[2017-11-27 10:16] LABS: TOXIC GRANULATION PRESENT
--- NOTE | 2017-11-27 13:25 | CP.PCM.PN ---
Subjective - Date & Time of Evaluation Date of Evaluation: 11/27/17 Time of Evaluation: 10:25 - Subjective Subjective: Patient much more awake, alert, conversing answering simple questions appropriately. Tolerating oral diet. 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 Objective - Vital Signs/Intake and Output Vital Signs (last 24 hours): Temp Pulse Resp BP Pulse Ox 98.7 F 63 20 127/62 100 11/27/17 04:00 11/27/17 07:00 11/27/17 07:00 11/27/17 06:45 11/27/17 07:00 Intake and Output: 11/27/17 11/27/17 06:59 18:59 Intake Total 1200 75 Output Total 620 55 Balance 580 20 - Medications Medications: Current Medications Albuterol/Ipratropium (Duoneb 3 Mg/0.5 Mg (3 Ml) Ud) 3 ml INH RQ6 [facility] Last Admin: 11/27/17 07:25 Dose: 3 ml Dextrose (Dextrose 50% Inj) 50 ml IV Q2H PRN PRN Reason: Hypoglycemia Last Admin: 11/24/17 02:04 Dose: 50 ml Finasteride (Proscar) 5 mg PO DAILY [facility] Last Admin: 11/26/17 18:51 Dose: Not Given Meropenem 500 mg/ Sodium (Chloride) 100 mls @ 100 mls/hr IVPB Q12H GAHNSHYAM PRN Reason: Protocol Last Admin: 11/27/17 00:05 Dose: 100 mls/hr Dextrose (Dextrose 5% In Water 1000 Ml) 1,000 mls @ 75 mls/hr IV .[id number] [facility] Last Admin: 11/26/17 22:44 Dose: Not Given Insulin Human Regular (Novolin R) 0 unit SC ACHS GHANSHYAM PRN Reason: Protocol Last Admin: 11/26/17 22:44 Dose: Not Given Mirtazapine (Remeron) 15 mg PO QPM [facility] Last Admin: 11/26/17 18:51 Dose: Not Given Mupirocin (Bactroban Ointment) 0 gm TOP DAILY [facility] Last Admin: 11/26/17 09:46 Dose: 1 applic Pantoprazole Sodium (Protonix Ec Tab) 40 mg PO DAILY [facility] Last Admin: 11/26/17 18:51 Dose: Not Given Tamsulosin HCl (Flomax) 0.8 mg PO DAILY [facility] Last Admin: 11/26/17 18:49 Dose: Not Given - Labs Labs: 11/27/17 06:27 11/27/17 06:27 PT 18.9 SECONDS (9.7-12.2) H 11/22/17 19:09 INR 1.7 11/22/17 19:09 APTT 45 SECONDS (21-34) H 11/22/17 19:09 Assessment and Plan - Assessment and Plan (Free Text) Assessment: 72 y/o male with h/o Asthma, Benign Prostatic Hyperplasia Bipolar Disorder, CHF , COPD, Depression, HTN, Hypercholesterolemia, Schizophrenia presents to the ED following fall at skilled nursing admitted to ICU for hypotension and Sepsis w/ bandemia. Sepsis: continue abx per ID, source urine, WBC decreasing -Hypotension resolved -Hematuria:resolved, d/c watts if urology agree -Hypoxic respiratory failure/COPD: breathing improved today -hypernatremia/hypoglycemia: 2nd lasix, continue D5 maitenance phase -schizophrenia: more awake, continue to monitor, CT reveals left frontal -at risk fo CAD: restart antiplatelets, continue statin -start oral diet as patient more awake -AMADEO: resolving -continue dvt/pud ppx Patient remains hemodynamically stable with 1:1 2nd agitation.
[2017-11-27] MEDS: (Novolin R) Insulin Human Regular 100 units/ml vial SC SCH ×3 (18:58→22:00)
[2017-11-27] MEDS: Pantoprazole 40 mg EC Tab PO SCH (18:59)
--- NOTE | 2017-11-27 21:47 | CP.PCM.PN ---
Subjective - Date & Time of Evaluation Date of Evaluation: 11/27/17 Time of Evaluation: 21:47 - Subjective Subjective: Pulmonary Follow up Covering Dr. Perez The Patient was seen and examined at the bedside, Medical records reviewed, and management issues were discussed and formulated with the house staff. Events reviewed Patient more awake today Comfortable Labs, CXR, ABG reviewed. Afebrile, NSR on the monitor Last 24H I&O reviewed Objective - Vital Signs/Intake and Output Vital Signs (last 24 hours): Temp Pulse Resp BP Pulse Ox 98.1 F 76 27 H 143/84 100 11/27/17 20:00 11/27/17 21:00 11/27/17 21:00 11/27/17 20:45 11/27/17 21:00 Intake and Output: 11/27/17 11/28/17 18:59 06:59 Intake Total 950 225 Output Total 605 150 Balance 345 75 - Medications Medications: Current Medications Albuterol/Ipratropium (Duoneb 3 Mg/0.5 Mg (3 Ml) Ud) 3 ml INH RQ6 [facility]AN[facility]YAM Last Admin: 11/27/17 19:10 Dose: 3 ml Dextrose (Dextrose 50% Inj) 50 ml IV Q2H PRN PRN Reason: Hypoglycemia Last Admin: 11/24/17 02:04 Dose: 50 ml Finasteride (Proscar) 5 mg PO DAILY [facility] Last Admin: 11/27/17 18:59 Dose: Not Given Meropenem 500 mg/ Sodium (Chloride) 100 mls @ 100 mls/hr IVPB Q12H GHANSHYAM PRN Reason: Protocol Last Admin: 11/27/17 11:57 Dose: 100 mls/hr Dextrose (Dextrose 5% In Water 1000 Ml) 1,000 mls @ 75 mls/hr IV .[id number] GHANSHYAM Last Admin: 11/27/17 18:58 Dose: 75 mls/hr Insulin Human Regular (Novolin R) 0 unit SC ACHS GHANSHYAM PRN Reason: Protocol Last Admin: 11/27/17 18:59 Dose: Not Given Mirtazapine (Remeron) 15 mg PO QPM GHANSHYAM Last Admin: 11/27/17 18:59 Dose: Not Given Mupirocin (Bactroban Ointment) 0 gm TOP DAILY [facility]ANSHYAM Last Admin: 11/27/17 18:58 Dose: Not Given Pantoprazole Sodium (Protonix Ec Tab) 40 mg PO DAILY [facility] Last Admin: 11/27/17 18:59 Dose: Not Given Tamsulosin HCl (Flomax) 0.8 mg PO DAILY [facility] Last Admin: 11/27/17 18:58 Dose: Not Given - Labs Labs: 11/27/17 06:27 11/27/17 06:27 PT 18.9 SECONDS (9.7-12.2) H 11/22/17 19:09 INR 1.7 11/22/17 19:09 APTT 45 SECONDS (21-34) H 11/22/17 19:09 - Constitutional Appears: Well, Non-toxic, No Acute Distress, Confused - Head Exam Head Exam: ATRAUMATIC, NORMAL INSPECTION, NORMOCEPHALIC - Eye Exam Eye Exam: EOMI, Normal appearance. absent: Conjunctival injection - ENT Exam ENT Exam: Mucous Membranes Dry - Neck Exam Neck Exam: Full ROM, Normal Inspection. absent: Lymphadenopathy, Meningismus - Respiratory Exam Respiratory Exam: Decreased Breath Sounds, Rales, Rhonchi. absent: Chest Wall Tenderness, Clear to Ausculation Bilateral, Wheezes, Stridor - Cardiovascular Exam Cardiovascular Exam: REGULAR RHYTHM, RRR, +S1, +S2. absent: Bradycardia, Tachycardia, Diastolic murmur, Gallop, Irregular Rhythm, JVD, Murmur - GI/Abdominal Exam GI & Abdominal Exam: Distended, Normal Bowel Sounds. absent: Firm, Guarding, Rigid, Soft, Tenderness - Extremities Exam Extremities Exam: Full ROM. absent: Calf Tenderness, Pedal Edema, Tenderness - Back Exam Back Exam: absent: CVA tenderness (L), CVA tenderness (R) Assessment and Plan (1) COPD (chronic obstructive pulmonary disease) Assessment & Plan: Critically ill patient with acute hypoxemic respiratory failure, Respiratory acidosis septic shock Continue current management, medications reviewed, avoid all sedative. Continue Antibiotics Tolerating 3L 02 NC Continue nebulizer treatment diuretics as needed Status: Acute (2) Elevated troponin Assessment & Plan: No ASA due to hematuria No BB due to hypotension Consider Statin. Status: Acute (3) Sepsis Assessment & Plan: A: Leukocytosis, Bandemia, Elevated Lactate (Improved), Urine Culture from Urologist POSITIVE for ESBL Cont. Vancomycin 1.25 Grams Daily started for cellultis Cont. Meropenem 500 Q12 Started for ESBL in Urine Tylenol PRN for fever Blood Cultures - POSITVE for Gram Neg. Rods Urine Cultures - Negative MRSA Culture - Not detected Wound Culture - P Status: Acute (4) Toxic metabolic encephalopathy Assessment & Plan: CT Head (Adm): Vasoactive Edema in Left Frontal Lobe Status: Acute (5) DVT prophylaxis Assessment & Plan: SCD Holding AC due to hematuria Status: Acute
[2017-11-28] MEDS: Meropenem 500 MG in Sodium Chloride 0.9% 100 ML IVPB SCH ×2 (00:46→11:54)
[2017-11-28] MEDS: Albuterol-Ipratrop 3 mg / 0.5 (3 ml) UD INH SCH ×4 (02:03→19:48)
[2017-11-28 06:30] LABS: BASO % 0.3 % (0.0-2.0); EOS # 0.4 K/uL (0.0-0.7); EOS % 3.7 % (0.0-4.0); HEMOGLOBIN 13.6 g/dL (12.0-18.0); LYMPH # 1.2 K/uL (1.0-4.3); LYMPH % 10.2 % (20.0-40.0); MEAN CELL VOLUME 89.5 fL (80.0-94.0); MEAN CORPUSCULAR HEMOGLOBIN 30.1 pg (27.0-31.0); MEAN CORPUSCULAR HGB CONC 33.7 g/dL (33.0-37.0); MEAN PLATELET VOLUME 10.7 fL (7.2-11.7); MONO # 1.4 K/uL (0.0-0.8); MONO % 12.1 % (0.0-10.0); NEUT # 8.6 K/uL (1.8-7.0); NEUT % 73.7 % (50.0-75.0); RBC 4.5 Mil/uL (4.40-5.90); RED CELL DISTRIBUTION WIDTH 14.5 % (11.5-14.5); WHITE BLOOD COUNT 11.7 K/uL (4.8-10.8)
[2017-11-28 06:59] LABS: ALB/GLOB RATIO 0.9 (1.0-2.1); ALBUMIN 2.9 g/dL (3.5-5.0); ALT/SGPT 75 U/L (21-72); AST/SGOT 63 U/L (17-59); BLOOD UREA NITROGEN 30 mg/dL (9-20); CALCIUM 8.2 mg/dl (8.6-10.4); GFR AFRICAN-AMERICAN > 60; GFR NON-AFRICAN AMERICAN > 60
[2017-11-28] MEDS: (Novolin R) Insulin Human Regular 100 units/ml vial SC SCH ×4 (08:22→21:23)
[2017-11-28] MEDS: Pantoprazole 40 mg EC Tab PO SCH (09:15)
--- NOTE | 2017-11-28 12:39 | CP.PCM.PN ---
Subjective - Date & Time of Evaluation Date of Evaluation: 11/28/17 Time of Evaluation: 10:00 - Subjective Subjective: Podiatry Progress Note- Dr. Lambert 72 yo male patient with PMHx of Asthma, Benign Prostatic Hyperplasia Bipolar Disorder, CHF, COPD, Depression, HTN, Hypercholesterolemia, Schizophrenia seen and evaluated for left foot 2nd digit traumatic nail avulsion and right foot digits abrasion. Patient was resting comfortably in bed, more awake. Patient is seen resting out of bed in chair. Expresses pain with palpation to ulceration sites. Objective - Vital Signs/Intake and Output Vital Signs (last 24 hours): Temp Pulse Resp BP Pulse Ox 98.3 F 99 H 21 142/76 83 L 11/28/17 12:00 11/28/17 12:00 11/28/17 12:00 11/28/17 11:30 11/28/17 12:00 Intake and Output: 11/28/17 11/28/17 06:59 18:59 Intake Total 925 515 Output Total 1040 435 Balance -115 80 - Medications Medications: Current Medications Albuterol/Ipratropium (Duoneb 3 Mg/0.5 Mg (3 Ml) Ud) 3 ml INH RQ6 [facility] Last Admin: 11/28/17 07:17 Dose: 3 ml Dextrose (Dextrose 50% Inj) 50 ml IV Q2H PRN PRN Reason: Hypoglycemia Last Admin: 11/24/17 02:04 Dose: 50 ml Finasteride (Proscar) 5 mg PO DAILY [facility] Last Admin: 11/28/17 09:15 Dose: 5 mg Meropenem 500 mg/ Sodium (Chloride) 100 mls @ 100 mls/hr IVPB Q12H GHANSHYAM PRN Reason: Protocol Last Admin: 11/28/17 11:54 Dose: 100 mls/hr Dextrose (Dextrose 5% In Water 1000 Ml) 1,000 mls @ 75 mls/hr IV .[id number] [facility] Last Admin: 11/28/17 10:08 Dose: 75 mls/hr Insulin Human Regular (Novolin R) 0 unit SC ACHS GHANSHYAM PRN Reason: Protocol Last Admin: 11/28/17 11:54 Dose: Not Given Mupirocin (Bactroban Ointment) 0 gm TOP DAILY [facility] Last Admin: 11/28/17 09:14 Dose: 1 applic Pantoprazole Sodium (Protonix Ec Tab) 40 mg PO DAILY [facility] Last Admin: 11/28/17 09:15 Dose: 40 mg Tamsulosin HCl (Flomax) 0.8 mg PO DAILY [facility] Last Admin: 11/28/17 09:15 Dose: 0.8 mg - Labs Labs: 11/28/17 06:26 11/28/17 06:26 PT 18.9 SECONDS (9.7-12.2) H 11/22/17 19:09 INR 1.7 11/22/17 19:09 APTT 45 SECONDS (21-34) H 11/22/17 19:09 - Constitutional Appears: Non-toxic, No Acute Distress - Extremities Exam Extremities Exam: absent: Calf Tenderness Additional comments: Lower extremity focused exam DERM: LEFT foot: Open wound noted to Left foot 2nd digit secondary to traumatic nail avulsion. No active bleeding noted. No pus noted. No drainage noted. No sign of acute infection is noted. No mal-odor noted. No PTB. Nail bed wound measures 1cm x 1xm 0.4cm with granular base RIGHT foot: Superficial abrasions noted to the dorsum of the hallux and 2nd digit, granular base, no erythema, no clinical signs of infection VASC: Palpable DP and PT at 2/4, SOCIAL SERVICES TECHNICIAN less than 3 seconds to all digits, temperature gradient WNL NEURO: gross sensation intact, protective diminished ORTHO: mild pain with palpation to ulceration site - Neurological Exam Neurological Exam: Awake - Psychiatric Exam Psychiatric exam: Normal Affect, Normal Mood Assessment and Plan - Assessment and Plan (Free Text) Assessment: 72 yo male patient presenting with Left foot 2nd digit traumatic nail avulsion and right hallux and 2nd digit superficial abrasions-stable Plan: Patient was seen, evaluated and treated with all questions and concerns addressed Discussed plan in detail with attending Dr. Lambert Labs and vitals reviewed Bilateral foot cleansed with saline solution, applied bactroban, dsd, and cling Ordered multipodus boots, to be worn at all times while in bed No plan for surgical intervention from podiatry standpoint Conservative treatment and local wound care to ulcerations Podiatry will continue to follow in-house
--- NOTE | 2017-11-28 13:42 | CP.CCUPN ---
CCU Subjective - Physician Review Events Since Last Encounter (Free Text): 11/28/17 13:41 Patient is a 72-year-old male with a history of asthma, BPH, bipolar disease, heart failure, COPD depression hypertension and hypercholesteremia schizophrenia. Patient admitted with the septic shock. Patient underwent urethral procedure, following that he developed a sepsis. Currently on IV antibiotic. He still confused, agitated. Sometimes he is shouting also. CCU Objective - Vital Signs / Intake & Output Vital Signs (Last 4 hours): Vital Signs Temp Pulse Resp BP Pulse Ox 11/28/17 13:00 102 H 25 H 93 L 11/28/17 12:00 98.3 F 99 H 21 83 L 11/28/17 11:30 142/76 11/28/17 11:00 86 30 H 97 11/28/17 10:00 75 21 96 Intake and Output (Last 8hrs): Intake & Output 11/27/17 11/28/17 11/28/17 22:59 06:59 14:59 Intake Total 650 625 590 Output Total 500 740 435 Balance 150 -115 155 Weight 209 lb Intake: Intake, IV Amount 600 625 550 Left Antecubital 600 625 550 Oral 50 40 Output: Urine 500 740 435 Urethral (Hawk) 500 740 435 - Physical Exam Narrative Physical Exam (Free Text): 11/28/17 13:41 On examination: Mild respiratory distress noted. Regular heart sound. Nontender abdomen Extremities edema 1+ noted. Head: Positive for: Atraumatic, Normocephalic Extroacular Muscles: Positive for: EOMI Conjunctiva: Positive for: Normal Respiratory/Chest: Positive for: Clear to Auscultation Cardiovascular: Positive for: Normal S1, S2. Negative for: Bradycardic Abdomen: Positive for: Normal Bowel Sounds. Negative for: Tenderness, Distention Lower Extremity: Positive for: Other (B/L Lower Ext. Erythema. Skin is Dry. Traumatic avulsion of the left 2nd toenail) Psychiatric: Positive for: Alert, Agitated - Medications Active Medications: Active Medications Generic Name Dose Route Start Last Admin Trade Name Freq PRN Reason Stop Dose Admin Albuterol/Ipratropium 3 ml 11/25/17 14:00 11/28/17 07:17 Duoneb 3 Mg/0.5 Mg (3 Ml) Ud INH 3 ml RQ6 GHANSHYAM Administration Dextrose 50 ml 11/23/17 12:09 11/24/17 02:04 Dextrose 50% Inj IV 50 ml Q2H PRN Administration Hypoglycemia Finasteride 5 mg 11/25/17 10:00 11/28/17 09:15 Proscar PO 5 mg DAILY GHANSHYAM Administration Meropenem 500 mg/ Sodium 100 mls @ 100 mls/hr 11/23/17 12:00 11/28/17 11:54 Chloride IVPB 100 mls/hr Q12H GHANSHYAM Administration Protocol Dextrose 1,000 mls @ 75 mls/hr 11/26/17 09:00 11/28/17 10:08 Dextrose 5% In Water 1000 Ml IV 75 mls/hr .[id number] GHANSHYAM Administration Insulin Human Regular 0 unit 11/25/17 16:30 11/28/17 11:54 Novolin R SC Not Given ACHS GHANSHYAM Protocol Mupirocin 0 gm 11/25/17 12:01 11/28/17 09:14 Bactroban Ointment TOP 1 applic DAILY GHANSHYAM Administration Pantoprazole Sodium 40 mg 11/23/17 10:00 11/28/17 09:15 Protonix Ec Tab PO 40 mg DAILY GHANSHYAM Administration Tamsulosin HCl 0.8 mg 11/23/17 10:00 11/28/17 09:15 Flomax PO 0.8 mg DAILY GHANSHYAM Administration - Patient Studies Lab Studies: Microbiology Studies 11/22/17 23:10 Blood Culture - Final Blood NO GROWTH AFTER 5 DAYS Gram Stain - Final TEST NOT PERFORMED Lab Studies 11/28/17 11/28/17 11/28/17 Range/Units 11:49 11:48 07:30 WBC (4.8-10.8) K/uL RBC (4.40-5.90) Mil/uL Hgb (12.0-18.0) g/dL Hct (35.0-51.0) % MCV (80.0-94.0) fL MCH (27.0-31.0) pg MCHC (33.0-37.0) g/dL RDW (11.5-14.5) % Plt Count (130-400) K/uL MPV (7.2-11.7) fL Neut % (Auto) (50.0-75.0) % Lymph % (Auto) (20.0-40.0) % [place] % (Auto) (0.0-10.0) % Eos % (Auto) (0.0-4.0) % Baso % (Auto) (0.0-2.0) % Neut # (Auto) (1.8-7.0) K/uL Lymph # (Auto) (1.0-4.3) K/uL [place] # (Auto) (0.0-0.8) K/uL Eos # (Auto) (0.0-0.7) K/uL Baso # (Auto) (0.0-0.2) K/uL Sodium (132-148) mmol/L Potassium (3.6-5.2) mmol/L Chloride (98-107) mmol/L Carbon Dioxide (22-30) mmol/L Anion Gap (10-20) BUN (9-20) mg/dL Creatinine (0.8-1.5) mg/dL Est GFR ( Amer) Est GFR (Non-Af Amer) POC Glucose (mg/dL) 80 61 L 89 (65-110) mg/dL Random Glucose (75-110) mg/dL Calcium (8.6-10.4) mg/dl Phosphorus (2.5-4.5) mg/dL Magnesium (1.6-2.3) mg/dL Total Bilirubin (0.2-1.3) mg/dL AST (17-59) U/L ALT (21-72) U/L Alkaline Phosphatase (38-126) U/L Total Protein (6.3-8.3) g/dL Albumin (3.5-5.0) g/dL Globulin (2.2-3.9) gm/dL Albumin/Globulin Ratio (1.0-2.1) 11/28/17 11/28/17 11/27/17 Range/Units 06:26 06:26 21:08 WBC 11.7 H (4.8-10.8) K/uL RBC 4.50 (4.40-5.90) Mil/uL Hgb 13.6 (12.0-18.0) g/dL Hct 40.3 (35.0-51.0) % MCV 89.5 D (80.0-94.0) fL MCH 30.1 (27.0-31.0) pg MCHC 33.7 (33.0-37.0) g/dL RDW 14.5 (11.5-14.5) % Plt Count 70 L D (130-400) K/uL MPV 10.7 (7.2-11.7) fL Neut % (Auto) 73.7 (50.0-75.0) % Lymph % (Auto) 10.2 L (20.0-40.0) % [place] % (Auto) 12.1 H (0.0-10.0) % Eos % (Auto) 3.7 (0.0-4.0) % Baso % (Auto) 0.3 (0.0-2.0) % Neut # (Auto) 8.6 H (1.8-7.0) K/uL Lymph # (Auto) 1.2 (1.0-4.3) K/uL [place] # (Auto) 1.4 H (0.0-0.8) K/uL Eos # (Auto) 0.4 (0.0-0.7) K/uL Baso # (Auto) 0.0 (0.0-0.2) K/uL Sodium 147 (132-148) mmol/L Potassium 3.9 (3.6-5.2) mmol/L Chloride 111 H (98-107) mmol/L Carbon Dioxide 28 (22-30) mmol/L Anion Gap 12 (10-20) BUN 30 H (9-20) mg/dL Creatinine 1.1 (0.8-1.5) mg/dL Est GFR ( Amer) > 60 Est GFR (Non-Af Amer) > 60 POC Glucose (mg/dL) 104 (65-110) mg/dL Random Glucose 87 (75-110) mg/dL Calcium 8.2 L (8.6-10.4) mg/dl Phosphorus 2.9 (2.5-4.5) mg/dL Magnesium 1.8 (1.6-2.3) mg/dL Total Bilirubin 1.9 H (0.2-1.3) mg/dL AST 63 H D (17-59) U/L ALT 75 H (21-72) U/L Alkaline Phosphatase 88 (38-126) U/L Total Protein 6.1 L (6.3-8.3) g/dL Albumin 2.9 L D (3.5-5.0) g/dL Globulin 3.2 (2.2-3.9) gm/dL Albumin/Globulin Ratio 0.9 L (1.0-2.1) 11/27/17 Range/Units 16:12 WBC (4.8-10.8) K/uL RBC (4.40-5.90) Mil/uL Hgb (12.0-18.0) g/dL Hct (35.0-51.0) % MCV (80.0-94.0) fL MCH (27.0-31.0) pg MCHC (33.0-37.0) g/dL RDW (11.5-14.5) % Plt Count (130-400) K/uL MPV (7.2-11.7) fL Neut % (Auto) (50.0-75.0) % Lymph % (Auto) (20.0-40.0) % [place] % (Auto) (0.0-10.0) % Eos % (Auto) (0.0-4.0) % Baso % (Auto) (0.0-2.0) % Neut # (Auto) (1.8-7.0) K/uL Lymph # (Auto) (1.0-4.3) K/uL [place] # (Auto) (0.0-0.8) K/uL Eos # (Auto) (0.0-0.7) K/uL Baso # (Auto) (0.0-0.2) K/uL Sodium (132-148) mmol/L Potassium (3.6-5.2) mmol/L Chloride (98-107) mmol/L Carbon Dioxide (22-30) mmol/L Anion Gap (10-20) BUN (9-20) mg/dL Creatinine (0.8-1.5) mg/dL Est GFR ( Amer) Est GFR (Non-Af Amer) POC Glucose (mg/dL) 135 H (65-110) mg/dL Random Glucose (75-110) mg/dL Calcium (8.6-10.4) mg/dl Phosphorus (2.5-4.5) mg/dL Magnesium (1.6-2.3) mg/dL Total Bilirubin (0.2-1.3) mg/dL AST (17-59) U/L ALT (21-72) U/L Alkaline Phosphatase (38-126) U/L Total Protein (6.3-8.3) g/dL Albumin (3.5-5.0) g/dL Globulin (2.2-3.9) gm/dL Albumin/Globulin Ratio (1.0-2.1) Laboratory Results - last 24 hr 11/27/17 11/27/17 11/28/17 16:12 21:08 06:26 WBC RBC Hgb Hct MCV MCH MCHC RDW Plt Count MPV Neut % (Auto) Lymph % (Auto) [place] % (Auto) Eos % (Auto) Baso % (Auto) Neut # (Auto) Lymph # (Auto) [place] # (Auto) Eos # (Auto) Baso # (Auto) Sodium 147 Potassium 3.9 Chloride 111 H Carbon Dioxide 28 Anion Gap 12 BUN 30 H Creatinine 1.1 Est GFR ( Amer) > 60 Est GFR (Non-Af Amer) > 60 POC Glucose (mg/dL) 135 H 104 Random Glucose 87 Calcium 8.2 L Phosphorus 2.9 Magnesium 1.8 Total Bilirubin 1.9 H AST 63 H D ALT 75 H Alkaline Phosphatase 88 Total Protein 6.1 L Albumin 2.9 L D Globulin 3.2 Albumin/Globulin Ratio 0.9 L 11/28/17 11/28/17 11/28/17 06:26 07:30 11:48 WBC 11.7 H RBC 4.50 Hgb 13.6 Hct 40.3 MCV 89.5 D MCH 30.1 MCHC 33.7 RDW 14.5 Plt Count 70 L D MPV 10.7 Neut % (Auto) 73.7 Lymph % (Auto) 10.2 L [place] % (Auto) 12.1 H Eos % (Auto) 3.7 Baso % (Auto) 0.3 Neut # (Auto) 8.6 H Lymph # (Auto) 1.2 [place] # (Auto) 1.4 H Eos # (Auto) 0.4 Baso # (Auto) 0.0 Sodium Potassium Chloride Carbon Dioxide Anion Gap BUN Creatinine Est GFR ( Amer) Est GFR (Non-Af Amer) POC Glucose (mg/dL) 89 61 L Random Glucose Calcium Phosphorus Magnesium Total Bilirubin AST ALT Alkaline Phosphatase Total Protein Albumin Globulin Albumin/Globulin Ratio 11/28/17 11:49 WBC RBC Hgb Hct MCV MCH MCHC RDW Plt Count MPV Neut % (Auto) Lymph % (Auto) [place] % (Auto) Eos % (Auto) Baso % (Auto) Neut # (Auto) Lymph # (Auto) [place] # (Auto) Eos # (Auto) Baso # (Auto) Sodium Potassium Chloride Carbon Dioxide Anion Gap BUN Creatinine Est GFR ( Amer) Est GFR (Non-Af Amer) POC Glucose (mg/dL) 80 Random Glucose Calcium Phosphorus Magnesium Total Bilirubin AST ALT Alkaline Phosphatase Total Protein Albumin Globulin Albumin/Globulin Ratio Fingerstick Blood Sugar Results: 89 Critical Care Progress Note - Nutrition Nutrition: Nutrition Category Date Time Status Heart Healthy Diet [DIET] Diets 11/22/17 Dinner Active Assessment/Plan - Assessment and Plan (Free Text) Assessment: Patient is a 72-year-old male with multiple medical history admitted to the hospital with a gram negatives septicemia. Septic shock. Improving Altered mental status. Agitation. Delirium. We'll continue to closely monitor in the intensive care unit. Clinical stable, transferred to floor
--- NOTE | 2017-11-28 16:49 | PN ---
DATE: ENDO FOLLOWUP NOTE LOCATION: In ICU, room 14 A. SUBJECTIVE: This is a 72-year-old male with gram-negative septicemia with cultures positive for ESBL and E.coli and currently receiving IV antibiotic management and is also being followed closely for metabolic management because of recent bouts of hypoglycemia as noted thereof. His oral intake is still variable and suboptimal at this time even with feeding assistance and the latest glucose levels have ranged from 89 to 104 mg/dL. His chemistries today showed a BUN of 30, sodium 147, potassium 3.9, chloride 111, CO2 28, glucose 87, and creatinine 1.1. His serum cortisol level was reported at 17.5 mcg/dL with a TSH of 2.29 excluding the underlying endocrinopathy causing the hypoglycemia. Moreover, his serum insulin level was 7.9 with a C-peptide level of 6.02 excluding insulin excess syndromes causing the aforementioned. ASSESSMENT: So at this time, we will continue the fingerstick glucose testing and observe his glycemic fluctuations thereof. Serial chemistries will be obtained and we will supplement accordingly as needed. No indications for any kind of insulin therapy as noted. He has still ongoing Dextrose infusion as given for now because of the very variable and nil oral intake. Peripheral hyperalimentation should if he continues to have variable and suboptimal portions especially in the light of hypercatabolic state with bacteremia and leukocytosis as noted. We will follow. Ximena Guerrero MD
--- NOTE | 2017-11-28 18:21 | CP.PCM.PN ---
Subjective - Date & Time of Evaluation Date of Evaluation: 11/28/17 Time of Evaluation: 18:21 - Subjective Subjective: HIEF COMPLAINTS TODAY : afebrile, TEMP 99.5 confused , ANXIOUS +folys blood tinged urine ROS. on observation only HEENT : N. Resp : No cough, wheezing ,pleuritic CP ,or hemoptysis Cardio : No anginal CP, PND, orthopnea, palpitation GI : No abd.pain, n/v ,diarrhea or GI bleeding . [employer]ING : No headache, vertigo, focal deficit. Musculoskel : No joint swelling , Derm : No rash Psych : Normal affect. Ext : No swelling ,calf pain LT FOOT IN DRESSING +ve FOLY PE. Pt. is CONFUSED, LETHARGIC V.S As noted in the chart Head ,ear nose,throat and eyes : Normal. Neck : Supple with normal carotids. Lungs: Clear air entry. Heart : S1 & S2 normal with S4. No murmur. Abd : MILD TENDERNESS SUPRAPUBIC, with normal bowel sounds. Neuro : Moves all ext. with no localized deficit. Ext : 1+ edema with intact pulses.TRAUMATIC AVULSION OF LT. 2ND TOE NAIL. CHRONIC STASIS DERMATITIS CHANGES B/L LE.). Negative for: calf tenderness Derm : No rashes or decubitus ulcer. LABS/RADIOLOGY: BLOOD CULTURE - +VE ESBL E.COLI URINE CULTUR - -VE LFTS IMPROVING, BILI 1.9 , AST 63, ALT 75 11/28/17 CREAT 1.1/BUN 30 11/28/17 IMPROVING ASSESSMENT SEPTIC SHOCK/BANDEMIA GRAM-NEGATIV SEPSIS-SOURCE HEMATURIA S/P CYSTOSCOPY. RENAL INSUFFICIENCY. TRANSAMINITIS ? SHOCK LIVER BPH. /PLAN REPEAT BLOOD CULTURES TO SEE IF BACTEREMIA CLEARED. IV AMIKACIN 500MG IVPB X1 DOSE 11/24/17. CONTINUE IV MERREM 500MG IV B75LADS.11/24/17 F/U LFTS. IV FLUIDS PER PMD LWC LT FOOT PER PODIATRY Objective - Vital Signs/Intake and Output Vital Signs (last 24 hours): Temp Pulse Resp BP Pulse Ox 99.5 F 94 H 34 H 117/63 91 L 11/28/17 16:00 11/28/17 18:00 11/28/17 18:00 11/28/17 17:21 11/28/17 18:00 Intake and Output: 11/28/17 11/28/17 06:59 18:59 Intake Total 925 995 Output Total 1040 935 Balance -115 60 - Medications Medications: Current Medications Albuterol/Ipratropium (Duoneb 3 Mg/0.5 Mg (3 Ml) Ud) 3 ml INH RQ6 [facility] Last Admin: 11/28/17 14:06 Dose: 3 ml Dextrose (Dextrose 50% Inj) 50 ml IV Q2H PRN PRN Reason: Hypoglycemia Last Admin: 11/24/17 02:04 Dose: 50 ml Finasteride (Proscar) 5 mg PO DAILY [facility] Last Admin: 11/28/17 09:15 Dose: 5 mg Meropenem 500 mg/ Sodium (Chloride) 100 mls @ 100 mls/hr IVPB Q12H [facility] PRN Reason: Protocol Last Admin: 11/28/17 11:54 Dose: 100 mls/hr Dextrose (Dextrose 5% In Water 1000 Ml) 1,000 mls @ 75 mls/hr IV .[id number] [facility] Last Admin: 11/28/17 10:08 Dose: 75 mls/hr Insulin Human Regular (Novolin R) 0 unit SC ACHS [facility] PRN Reason: Protocol Last Admin: 11/28/17 17:44 Dose: Not Given Mupirocin (Bactroban Ointment) 0 gm TOP DAILY [facility] Last Admin: 11/28/17 09:14 Dose: 1 applic Pantoprazole Sodium (Protonix Ec Tab) 40 mg PO DAILY [facility] Last Admin: 11/28/17 09:15 Dose: 40 mg Tamsulosin HCl (Flomax) 0.8 mg PO DAILY [facility] Last Admin: 11/28/17 09:15 Dose: 0.8 mg - Labs Labs: 11/28/17 06:26 11/28/17 06:26 PT 18.9 SECONDS (9.7-12.2) H 11/22/17 19:09 INR 1.7 11/22/17 19:09 APTT 45 SECONDS (21-34) H 11/22/17 19:09 Assessment and Plan (1) Septic shock Status: Acute (2) UTI (urinary tract infection) Status: Chronic (3) Gross hematuria Status: Acute (4) S/P cystoscopy Status: Acute (5) BPH (benign prostatic hyperplasia) Status: Chronic (6) Renal insufficiency Status: Acute
--- NOTE | 2017-11-28 22:32 | CP.PCM.PN ---
Subjective - Date & Time of Evaluation Date of Evaluation: 11/28/17 Time of Evaluation: 19:00 - Subjective Subjective: Pt is seen and examined, is more alert, improved, wbc went back to normal, pt is anxious Objective - Vital Signs/Intake and Output Vital Signs (last 24 hours): Temp Pulse Resp BP Pulse Ox 98.1 F 98 H 33 H 139/81 91 L 11/28/17 20:00 11/28/17 20:00 11/28/17 20:00 11/28/17 19:56 11/28/17 20:00 Intake and Output: 11/28/17 11/29/17 18:59 06:59 Intake Total 1070 Output Total 935 Balance 135 - Medications Medications: Current Medications Albuterol/Ipratropium (Duoneb 3 Mg/0.5 Mg (3 Ml) Ud) 3 ml INH RQ6 [facility] Last Admin: 11/28/17 19:48 Dose: 3 ml Dextrose (Dextrose 50% Inj) 50 ml IV Q2H PRN PRN Reason: Hypoglycemia Last Admin: 11/24/17 02:04 Dose: 50 ml Finasteride (Proscar) 5 mg PO DAILY [facility] Last Admin: 11/28/17 09:15 Dose: 5 mg Meropenem 500 mg/ Sodium (Chloride) 100 mls @ 100 mls/hr IVPB Q12H [facility] PRN Reason: Protocol Last Admin: 11/28/17 11:54 Dose: 100 mls/hr Dextrose (Dextrose 5% In Water 1000 Ml) 1,000 mls @ 75 mls/hr IV .[id number] [facility] Last Admin: 11/28/17 22:05 Dose: 75 mls/hr Insulin Human Regular (Novolin R) 0 unit SC ACHS [facility] PRN Reason: Protocol Last Admin: 11/28/17 21:23 Dose: Not Given Mupirocin (Bactroban Ointment) 0 gm TOP DAILY [facility] Last Admin: 11/28/17 09:14 Dose: 1 applic Pantoprazole Sodium (Protonix Ec Tab) 40 mg PO DAILY [facility] Last Admin: 11/28/17 09:15 Dose: 40 mg Tamsulosin HCl (Flomax) 0.8 mg PO DAILY [facility] Last Admin: 11/28/17 09:15 Dose: 0.8 mg - Labs Labs: 11/28/17 06:26 11/28/17 06:26 PT 18.9 SECONDS (9.7-12.2) H 11/22/17 19:09 INR 1.7 11/22/17 19:09 APTT 45 SECONDS (21-34) H 11/22/17 19:09 - Constitutional Appears: No Acute Distress - Head Exam Head Exam: ATRAUMATIC, NORMAL INSPECTION, NORMOCEPHALIC - Eye Exam Eye Exam: EOMI, Normal appearance, PERRL Pupil Exam: NORMAL ACCOMODATION, PERRL - ENT Exam ENT Exam: Mucous Membranes Moist, Normal Exam - Respiratory Exam Respiratory Exam: Decreased Breath Sounds, Clear to Ausculation Bilateral - Cardiovascular Exam Cardiovascular Exam: REGULAR RHYTHM, +S1, +S2. absent: Murmur - GI/Abdominal Exam GI & Abdominal Exam: Soft, Normal Bowel Sounds. absent: Tenderness - Rectal Exam Rectal Exam: Deferred Assessment and Plan (1) Toxic metabolic encephalopathy Status: Acute (2) S/P cystoscopy Status: Acute (3) Sepsis Status: Acute (4) Leukocytosis Status: Acute (5) UTI (lower urinary tract infection) Status: Acute (6) BPH (benign prostatic hyperplasia) Status: Acute
[2017-11-29] MEDS: Meropenem 500 MG in Sodium Chloride 0.9% 100 ML IVPB SCH ×3 (00:45→23:52)
[2017-11-29] MEDS: Albuterol-Ipratrop 3 mg / 0.5 (3 ml) UD INH SCH ×4 (02:02→20:07)
[2017-11-29 06:31] VITALS: RESP 20
[2017-11-29 07:02] LABS: SQUAMOUS EPITHIAL < 1 /hpf (0-5); URINE BILIRUBIN NEGATIVE (NEGATIVE); URINE BLOOD 3+ (NEGATIVE); URINE CLARITY Clear (Clear); URINE COLOR Yellow (YELLOW); URINE GLUCOSE (UA) NORMAL (Normal); URINE LEUKOCYTE ESTERASE NEG Leu/uL (Negative); URINE PROTEIN NEGATIVE (NEGATIVE); URINE UROBILINOGEN NORMAL mg/dL (0.2-1.0)
[2017-11-29] MEDS: (Novolin R) Insulin Human Regular 100 units/ml vial SC SCH ×4 (07:41→22:21)
[2017-11-29] MEDS: Pantoprazole 40 mg EC Tab PO SCH (09:06)
--- NOTE | 2017-11-29 09:33 | PN ---
DATE: 11/27/2017 ENDO FOLLOWUP NOTE LOCATION: In ICU, room 14 A. SUBJECTIVE: This is a 72-year-old male admitted with episodic bouts of symptomatic hypoglycemia and supervening hypotension with associated bacteremia and is now being followed closely for metabolic management. His glycemic levels are much improved at this time as noted overnight and have ranged from 100 to 103 and 114 mg/dL. His latest chemistries showed a BUN of 47, sodium 150, potassium 4.6, chloride 119, CO2 24, glucose 74, and creatinine 1.3. His serum C-peptide level is 6.02 with a serum insulin level of 7.9. ASSESSMENT: This is a 72-year-old male with recent episodes of symptomatic hypoglycemia most likely related to nutritional factors with very poor and suboptimal oral intake at this time with extremely valuable meal portions as noted on the background of also underlying bacteremia and septicemia which can contribute to symptomatic episodes of hypoglycemia. He also has underlying chronic schizoaffective disorder, on psychotropic medications as given to him. PLAN OF MANAGEMENT: As discussed with nursing staff. We will continue glucose testing as ordered with no insulin coverage unless his glucose levels are over 300 mg/dL. I do not think we are dealing with the so called endocrine excess syndrome with the above mentioned normal C-peptide and serum insulin levels as given. We will obtain serial chemistries and supplement accordingly as needed. We will follow. Ximena Guerrero MD
--- NOTE | 2017-11-29 10:53 | CP.PCM.PCO ---
Physician Communication Note - Physician Communication Note Physician Communication Note: Family meeting tomorrow ar 11 30 am
--- NOTE | 2017-11-29 11:59 | CP.PCM.PN ---
Subjective - Date & Time of Evaluation Date of Evaluation: 11/29/17 Time of Evaluation: 11:58 - Subjective Subjective: Pt seen at bedside for f/u left 2nd digit nail avulsion and ulcerations right foot. Wounds are dry and stable. Nursing to cont with local care for now. Will sign off for now and reconsult as needed. Objective - Vital Signs/Intake and Output Vital Signs (last 24 hours): Temp Pulse Resp BP Pulse Ox 98.3 F 74 20 130/75 97 11/29/17 07:30 11/29/17 10:00 11/29/17 07:30 11/29/17 07:30 11/29/17 07:30 Intake and Output: 11/29/17 11/29/17 06:59 18:59 Intake Total 1240 Output Total 1300 Balance -60 - Medications Medications: Current Medications Albuterol/Ipratropium (Duoneb 3 Mg/0.5 Mg (3 Ml) Ud) 3 ml INH RQ6 [facility] Last Admin: 11/29/17 08:38 Dose: 3 ml Dextrose (Dextrose 50% Inj) 50 ml IV Q2H PRN PRN Reason: Hypoglycemia Last Admin: 11/24/17 02:04 Dose: 50 ml Finasteride (Proscar) 5 mg PO DAILY [facility] Last Admin: 11/29/17 09:06 Dose: 5 mg Meropenem 500 mg/ Sodium (Chloride) 100 mls @ 100 mls/hr IVPB Q12H [facility] PRN Reason: Protocol Last Admin: 11/29/17 11:56 Dose: 100 mls/hr Insulin Human Regular (Novolin R) 0 unit SC ACHS [facility] PRN Reason: Protocol Last Admin: 11/29/17 07:41 Dose: Not Given Mupirocin (Bactroban Ointment) 0 gm TOP DAILY [facility] Last Admin: 11/29/17 10:12 Dose: 1 applic Pantoprazole Sodium (Protonix Ec Tab) 40 mg PO DAILY [facility] Last Admin: 11/29/17 09:06 Dose: 40 mg Tamsulosin HCl (Flomax) 0.8 mg PO DAILY [facility] Last Admin: 11/29/17 09:06 Dose: 0.8 mg - Labs Labs: 11/28/17 06:26 11/28/17 06:26 PT 18.9 SECONDS (9.7-12.2) H 11/22/17 19:09 INR 1.7 11/22/17 19:09 APTT 45 SECONDS (21-34) H 11/22/17 19:09
--- NOTE | 2017-11-29 15:11 | CP.PCM.CON ---
History of Present Illness - History of Present Illness History of Present Illness: Palliative consult requested by Doctor Adithya for goals of care discussion Patient is a 72 yo male admitted from [place] post fall. Per record, patient had Cystoscopy that day. Patient was neel with gross hematuria n Fley catheter. In D patient was given Fentanyl for pin when he got hypotensive, his lactic acids increased. Ptien was also found to have elevated RPI and with leucoctosis. In ED WBC was 33.2. Patient diagnosed with sepsis and transferred to ICU for further care, than to the floor after condition got more stable. PMH: Schizophrenia, heart failure, kidney disease, BPH, anxiety Soc. Hx: single, [place] resident, no close family, Willis Salinas mentioned as a contact manager was his niece who , Idalia Uriostegui is a close friend Fam. Hx: Patient unable to provide Review of Systems - Constitutional Constitutional: Weakness - EENT Ears: absent: As Per HPI, Decreased Hearing, Ear Discharge, Ear Pain, Tinnitus, Abnormal Hearing, Disequilibrium, Dizziness, Other Nose/Mouth/Throat: absent: As Per HPI, Epistaxis, Nasal Congestion, Nasal Discharge, Nasal Obstruction, Nasal Trauma, Nose Pain, Post Nasal Drip, Sinus Pain, Sinus Pressure, Bleeding Gums, Change in Voice, Dental Pain, Dry Mouth, Dysphagia, Halitosis, Hoarsness, Lip Swelling, Mouth Lesions, Mouth Pain, Odynophagia, Sore Throat, Throat Swelling, Tongue Swelling, Facial Pain, Neck Pain, Neck Mass, Other - Cardiovascular Cardiovascular: absent: As Per HPI, Acrocyanosis, Chest Pain, Chest Pain at Rest , Chest Pain with Activity, Claudication, Diaphoresis, Dyspnea, Dyspnea on Exertion, Edema, Irregular Heart Rhythm, Pain Radiating to Arm/Neck/Jaw, Leg Edema, Leg Ulcers, Lightheadedness, Orthopnea, Palpitations, Paroxysmal Nocturnal Dyspnea, Pedal Edema, Radiating Pain, Rapid Heart Rate, Slow Heart Rate, Syncope, Other - Respiratory Respiratory: absent: As Per HPI, Cough, Dyspnea, Hemoptysis, Dyspnea on Exertion , Wheezing, Snoring, Stridor, Pain on Inspiration, Chest Congestion, Excessive Mucous Production, Change in Mucous Color, Pain with Coughing, Other - Gastrointestinal Gastrointestinal: absent: As Per HPI, Abdominal Pain, Belching, Bloating, Change in Bowel Habits, Change in Stool Character, Coffee Ground Emesis, Constipation, Cramping, Diarrhea, Dyspepsia, Dysphagia, Early Satiety, Excessive Flatus, Fecal Incontinence, Heartburn, Hematemesis, Hematochezia, Loose Stools, Melena, Nausea, Odynophagia, Temesmus, Vomiting, Other - Genitourinary Genitourinary: Hematuria, Urinary Incontinence - Musculoskeletal Musculoskeletal: Muscle Weakness - Integumentary Integumentary: Sores - Neurological Neurological: Frequent Falls - Psychiatric Psychiatric: Anxiety - Endocrine Endocrine: absent: As Per HPI, Change in Body Appearance, Change in Libido, Cold Intolorance, Deepening of Voice, Excessive Sweating, Fatigue, Flushing, Heat Intolorance, Increase in Ring/Shoe/Hat Size, Palpitations, Polydipsia, Polyphagia, Polyuria, Other - Hematologic/Lymphatic Hematologic: absent: As Per HPI, Easy Bleeding, Easy Bruising, Lymphadenopathy, Other Past Patient History - Infectious Disease Hx of Infectious Diseases: None - Tetanus Immunizations Tetanus Immunization: Unknown - Past Medical History & Family History Past Medical History?: Yes - Past Social History Smoking Status: Unknown If Ever Smoked - CARDIAC Hx Hypercholesterolemia: Yes Hx Hypertension: Yes - PULMONARY Hx Chronic Obstructive Pulmonary Disease (COPD): Yes - HEENT Hx HEENT Problems: Yes Hx Cataracts: Yes - RENAL Hx Chronic Kidney Disease: Yes (renal insufficiency) - INTEGUMENTARY Hx Dermatological Problems: No - GASTROINTESTINAL Hx Gastrointestinal Disorders: No - GENITOURINARY/GYNECOLOGICAL Hx Sexually Transmitted Disorders: No - PSYCHIATRIC Hx Anxiety: Yes Hx Bipolar Disorder: Yes Hx Depression: Yes Hx Schizophrenia: Yes Hx Substance Use: No - SURGICAL HISTORY Hx Tonsillectomy: Yes - ANESTHESIA Hx Anesthesia: Yes Hx Anesthesia Reactions: No Hx Malignant Hyperthermia: No Meds Allergies/Adverse Reactions: Allergies Allergy/AdvReac Type Severity Reaction Status Date / Time No Known Allergies Allergy Verified 11/22/17 17:13 - Medications Medications: Current Medications Albuterol/Ipratropium (Duoneb 3 Mg/0.5 Mg (3 Ml) Ud) 3 ml INH RQ6 [facility] Last Admin: 11/29/17 14:00 Dose: Not Given Dextrose (Dextrose 50% Inj) 50 ml IV Q2H PRN PRN Reason: Hypoglycemia Last Admin: 11/24/17 02:04 Dose: 50 ml Finasteride (Proscar) 5 mg PO DAILY [facility] Last Admin: 11/29/17 09:06 Dose: 5 mg Meropenem 500 mg/ Sodium (Chloride) 100 mls @ 100 mls/hr IVPB Q12H [facility] PRN Reason: Protocol Last Admin: 11/29/17 11:56 Dose: 100 mls/hr Insulin Human Regular (Novolin R) 0 unit SC ACHS [facility] PRN Reason: Protocol Last Admin: 11/29/17 12:06 Dose: Not Given Mupirocin (Bactroban Ointment) 0 gm TOP DAILY [facility] Last Admin: 11/29/17 10:12 Dose: 1 applic Pantoprazole Sodium (Protonix Ec Tab) 40 mg PO DAILY [facility] Last Admin: 11/29/17 09:06 Dose: 40 mg Tamsulosin HCl (Flomax) 0.8 mg PO DAILY [facility] Last Admin: 11/29/17 09:06 Dose: 0.8 mg Physical Exam - Constitutional Appears: Chronically Ill - Head Exam Head Exam: ATRAUMATIC, NORMAL INSPECTION, NORMOCEPHALIC - Eye Exam Eye Exam: EOMI, Normal appearance, PERRL Pupil Exam: NORMAL ACCOMODATION, PERRL - ENT Exam ENT Exam: Mucous Membranes Moist, Normal Exam - Neck Exam Neck exam: Positive for: Normal Inspection - Respiratory Exam Respiratory Exam: NORMAL BREATHING PATTERN - Cardiovascular Exam Cardiovascular Exam: Tachycardia - GI/Abdominal Exam GI & Abdominal Exam: Normal Bowel Sounds, Soft - Rectal Exam Rectal Exam: Deferred - Exam Exam: NORMAL INSPECTION - Extremities Exam Extremities exam: Positive for: pedal edema Additional comments: open skin ulcers to digits n both feet - Back Exam Back exam: NORMAL INSPECTION - Neurological Exam Neurological exam: Alert, Altered - Psychiatric Exam Psychiatric exam: Agitated - Skin Skin Exam: Normal Color Results - Vital Signs Recent Vital Signs: Last Vital Signs Temp 98.3 F 11/29/17 07:30 Pulse 60 11/29/17 13:18 Resp 20 11/29/17 07:30 BP 130/75 11/29/17 07:30 Pulse Ox 97 11/29/17 13:18 - Labs Result Diagrams: 11/28/17 06:26 11/28/17 06:26 Labs: Laboratory Results - last 24 hr 11/28/17 11/28/17 11/29/17 16:13 21:28 06:36 POC Glucose (mg/dL) 103 97 Urine Color Yellow Urine Clarity Clear Urine pH 6.0 Ur Specific [place] 1.011 Urine Protein Negative Urine Glucose (UA) Normal Urine Ketones Trace Urine Blood 3+ H Urine Nitrate Negative Urine Bilirubin Negative Urine Urobilinogen Normal Ur Leukocyte Esterase Neg Urine WBC (Auto) 3 Urine RBC (Auto) 36 H Ur Squamous Epith Cells < 1 11/29/17 11/29/17 06:41 11:27 POC Glucose (mg/dL) 95 106 Urine Color Urine Clarity Urine pH Ur Specific [place] Urine Protein Urine Glucose (UA) Urine Ketones Urine Blood Urine Nitrate Urine Bilirubin Urine Urobilinogen Ur Leukocyte Esterase Urine WBC (Auto) Urine RBC (Auto) Ur Squamous Epith Cells Assessment & Plan - Assessment and Plan (Free Text) Assessment: Palliative consult Full Code, no Advance Directive on chart, PPS 30% I reviewed medical records, all diagnostic studies, examined and interviewed patient in the bed. Patient is alert, confused, agitated, able to answer some questions correctly. Patient knew who was Luz Elena Salinas. Patient recalls that it was his niece who . Patient also knew who was Idalia Uriostegui, his best friend and allowed me to talk to Moody about goals of care for him. Patient is not in acute distress. Breathing is normal, regular heart bets, BP 130//75, HR 78, afebrile. Abdomen soft, active bowel sounds. Per ursing patient mostly drinks Ensure, appetite is generally poor.Hawk cath in place, urine clear. No hematuria. Hb stable, 13.4 Patient moves upper and lower extremities freely. LEs are discolored with multiple old, healed superficial wounds. Those wounds look like from light injury or falls. Both feet are very discolored with diminished pedal pulses felt on palpation. The joint of few metatarsals on both feet are with open wounds. Patient samir pain. WBC droped to 11.7 today. Merem Iv on board. Impression * Patient is chronically ill man with sepsis that is improving * Confusion * Anxiety * Non ambulatory * PVD * Lack of family support * There is no decision making capacity * Malnutrition * At risk for fall Suggestions * Psych eval and anxiety treatment * Promote safety * Refer to Dietitian * Promote skin integrity I scheduled the meeting with patient's friend Mr. Friedman for 11:30 am tomorrow to discuss goals of care and Code status.
--- NOTE | 2017-11-29 21:55 | PN ---
DATE: ENDO FOLLOWUP NOTE LOCATION: Room 556. This is a 72-year-old male presenting here with septic shock and subsequent bacteremia with ESBL E. coli, receiving IV antibiotic management and is also being followed closely for metabolic management. He has had episodic bouts of symptomatic hypoglycemia which is most likely nutritional considering the factor that his variable and suboptimal meal portions as per the nursing staff. Moreover, with his bacteremia, this may also contribute to hypoglycemic episodes as he remains hypercatabolic at this time with impaired glycogenolysis. His endocrine workup was reported as normal with normal thyroid and cortisol studies. Moreover, his serum insulin and C-peptide levels were also expectedly normal as noted. This will exclude any underlying endocrine excess syndromes as noted. For now, we will continue the very low dose correction scale using Reglan insulin for glucose levels only above 300 mg/dL. We will obtain serial chemistries and supplement accordingly as needed. We will follow. Ximena Guerrero MD
--- NOTE | 2017-11-29 22:29 | PCM.PSYCH ---
Initial Psychiatric Evaluation - Initial Psychiatric Evaluation Type of Admission: Voluntary Legal Status: Capacity Chief Complaint (in patient's own words): I am feeling maría.' History of Present Illness and Precipitating Events: Patient is a 72 year old CM, who is currently residing at [facility], was taken to the ED with sepsis and altered mental status. Today pt was consulted. Pt denies any past history of inpatient psychiatric hospitalizations and denies any history of follow up with any psychiatrist. Staff reports that earlier during his stay he became delirious, irritable and agitated, and as a result he was admitted at ICU. He was hallucinating and was talking to himself. However, today he is doing much better. He is AAOx3. He understands that he is at the and he resides at the [facility]. Pt reports some irritability but denies any feelings of hopelessness and helplessness. He denies any suicidal ideation or any homicidal ideation. He denies any auditory or visual hallucinations. He denies any manic symptoms. Current Medications: Active Medications Generic Name Dose Route Start Last Admin Trade Name Freq PRN Reason Stop Dose Admin Albuterol/Ipratropium 3 ml 11/25/17 14:00 11/29/17 20:07 Duoneb 3 Mg/0.5 Mg (3 Ml) Ud INH 3 ml RQ6 [facility] Administration Dextrose 50 ml 11/23/17 12:09 11/24/17 02:04 Dextrose 50% Inj IV 50 ml Q2H PRN Administration Hypoglycemia Finasteride 5 mg 11/25/17 10:00 11/29/17 09:06 Proscar PO 5 mg DAILY [facility] Administration Meropenem 500 mg/ Sodium 100 mls @ 100 mls/hr 11/23/17 12:00 11/29/17 11:56 Chloride IVPB 100 mls/hr Q12H [facility] Administration Protocol Insulin Human Regular 0 unit 11/25/17 16:30 11/29/17 22:21 Novolin R SC Not Given ACHS [facility] Protocol Mupirocin 0 gm 11/25/17 12:01 11/29/17 10:12 Bactroban Ointment TOP 1 applic DAILY [facility] Administration Pantoprazole Sodium 40 mg 11/23/17 10:00 11/29/17 09:06 Protonix Ec Tab PO 40 mg DAILY [facility] Administration Tamsulosin HCl 0.8 mg 11/23/17 10:00 11/29/17 09:06 Flomax PO 0.8 mg DAILY [facility] Administration Past Psychiatric History - Past Psychiatric History Previous Treatment History: None Pertinent Medical Hx (Current Medical&Sleep Prob, Allergies): Allergies Allergy/AdvReac Type Severity Reaction Status Date / Time No Known Allergies Allergy Verified 11/22/17 17:13 Losartan [Cozaar] 50 mg PO QPM 11/22/17 Mirtazapine [Remeron] 15 mg PO QPM 11/22/17 Tamsulosin [Flomax] 0.8 mg PO DAILY 11/22/17 Valproic Acid [Depakene] 250 mg PO BID 11/22/17 Review of Systems - Review of Systems All systems: reviewed and no additional remarkable complaints except - Psychiatric Psychiatric: Anxiety, Irritability. absent: Auditory Hallucinations, Suicidal Ideation Mental Status Examination - Personal Presentation Personal Presentation: Looks stated age - Affect Affect: Constricted - Motor Activity Motor Activity: Calm - Reliability in Providing Information Reliability in Providing Information: Fair - Speech Speech: Organized - Mood Mood: Anxious - Formal Thought Process Formal Thought Process: No Impairment - Obsessions/Compulsions Obsessions: No Compulsions: No - Cognitive Functions Orientation: Person, Place, Situation, Time Sensorium: Alert Attention/Concentration: Attentive Abstract Thinking: [place] Estimate of Intelligence: Below average Judgement: Intact, as evidence by: Good judgement, Intact, as evidence by: Insight regarding need for hospitalization - Risk Risk: Diminished functioning DSM 5 DX - DSM 5 DSM 5 Diagnosis: Delirium due to medical condition (sepsis) - Recommended/Plan of Treatment Treatment Recommendations and Plan of Treatment: Pt psychiatrically stable and clear for discharge. - Smoking Cessation Smoking Cessation Initiated: No
--- NOTE | 2017-11-29 22:55 | CP.PCM.PN ---
Subjective - Date & Time of Evaluation Date of Evaluation: 11/29/17 Time of Evaluation: 19:00 - Subjective Subjective: PT SEEN AND EXAMINED TODAY Objective - Vital Signs/Intake and Output Vital Signs (last 24 hours): Temp Pulse Resp BP Pulse Ox 97.6 F 79 20 147/79 98 11/29/17 16:00 11/29/17 18:00 11/29/17 16:00 11/29/17 16:00 11/29/17 16:00 - Medications Medications: Current Medications Albuterol/Ipratropium (Duoneb 3 Mg/0.5 Mg (3 Ml) Ud) 3 ml INH RQ6 [facility] Last Admin: 11/29/17 20:07 Dose: 3 ml Dextrose (Dextrose 50% Inj) 50 ml IV Q2H PRN PRN Reason: Hypoglycemia Last Admin: 11/24/17 02:04 Dose: 50 ml Finasteride (Proscar) 5 mg PO DAILY [facility] Last Admin: 11/29/17 09:06 Dose: 5 mg Hydroxyzine HCl (Atarax) 10 mg PO Q6 PRN PRN Reason: Anxiety Meropenem 500 mg/ Sodium (Chloride) 100 mls @ 100 mls/hr IVPB Q12H [facility] PRN Reason: Protocol Last Admin: 11/29/17 11:56 Dose: 100 mls/hr Insulin Human Regular (Novolin R) 0 unit SC ACHS [facility] PRN Reason: Protocol Last Admin: 11/29/17 22:21 Dose: Not Given Mupirocin (Bactroban Ointment) 0 gm TOP DAILY [facility] Last Admin: 11/29/17 10:12 Dose: 1 applic Pantoprazole Sodium (Protonix Ec Tab) 40 mg PO DAILY [facility] Last Admin: 11/29/17 09:06 Dose: 40 mg Tamsulosin HCl (Flomax) 0.8 mg PO DAILY [facility] Last Admin: 11/29/17 09:06 Dose: 0.8 mg - Labs Labs: 11/28/17 06:26 11/28/17 06:26 PT 18.9 SECONDS (9.7-12.2) H 11/22/17 19:09 INR 1.7 11/22/17 19:09 APTT 45 SECONDS (21-34) H 11/22/17 19:09 Assessment and Plan (1) Toxic metabolic encephalopathy Status: Acute (2) S/P cystoscopy Status: Acute (3) Sepsis Status: Acute (4) Leukocytosis Status: Acute (5) UTI (lower urinary tract infection) Status: Acute
--- NOTE | 2017-11-29 23:18 | CP.PCM.PN ---
Subjective - Date & Time of Evaluation Date of Evaluation: 11/29/17 Time of Evaluation: 23:18 - Subjective Subjective: CHIEF COMPLAINTS TODAY : afebrile, SEEN ON 5T- MORE RESPONSIVE SOMETIMES TALKS TO HIMSELF +folys URINE CLEARING ROS. on observation only HEENT : N. Resp : No cough, wheezing ,pleuritic CP ,or hemoptysis Cardio : No anginal CP, PND, orthopnea, palpitation GI : No abd.pain, n/v ,diarrhea or GI bleeding . MATERIAL HANDLER 2ND SHIFT : No headache, vertigo, focal deficit. Musculoskel : No joint swelling , Derm : No rash Psych : Normal affect. Ext : No swelling ,calf pain LT FOOT IN DRESSING +ve FOLY PE. Pt. is MORE RESPONSIVE AT TIMES V.S As noted in the chart Head ,ear nose,throat and eyes : Normal. Neck : Supple with normal carotids. Lungs: Clear air entry. Heart : S1 & S2 normal with S4. No murmur. Abd : MILD TENDERNESS SUPRAPUBIC, with normal bowel sounds. Neuro : Moves all ext. with no localized deficit. Ext : 1+ edema with intact pulses.TRAUMATIC AVULSION OF LT. 2ND TOE NAIL. CHRONIC STASIS DERMATITIS CHANGES B/L LE.). Negative for: calf tenderness Derm : No rashes or decubitus ulcer. LABS/RADIOLOGY: WBC 11.7 CREAT 1.1/bun 30. CXR 11/27/17 -decreased RT. air space disease with atelectasis left base. Trace left pleural effusion. BLOOD CULTURE - +VE ESBL E.COLI URINE CULTUR - -VE LFTS IMPROVING, BILI 1.9 , AST 63, ALT 75 11/28/17 CREAT 1.1/BUN 30 11/28/17 IMPROVING ASSESSMENT SEPTIC SHOCK/BANDEMIA GRAM-NEGATIV SEPSIS-SOURCE HEMATURIA S/P CYSTOSCOPY. ASPIRATION PNEUMONIA RT .SIDE. RENAL INSUFFICIENCY. TRANSAMINITIS ? SHOCK LIVER BPH. /PLAN REPEAT BLOOD CULTURES TO SEE IF BACTEREMIA CLEARED. IV AMIKACIN 500MG IVPB X1 DOSE 11/24/17. CONTINUE IV MERREM 500MG IV K60ULPM.11/24/17-6TH DAY. F/U CXR F/U LFTS. IV FLUIDS PER PMD LWC LT FOOT PER PODIATRY Objective - Vital Signs/Intake and Output Vital Signs (last 24 hours): Temp Pulse Resp BP Pulse Ox 97.6 F 79 20 147/79 98 11/29/17 16:00 11/29/17 18:00 11/29/17 16:00 11/29/17 16:00 11/29/17 16:00 - Medications Medications: Current Medications Albuterol/Ipratropium (Duoneb 3 Mg/0.5 Mg (3 Ml) Ud) 3 ml INH RQ6 [facility] Last Admin: 11/29/17 20:07 Dose: 3 ml Dextrose (Dextrose 50% Inj) 50 ml IV Q2H PRN PRN Reason: Hypoglycemia Last Admin: 11/24/17 02:04 Dose: 50 ml Finasteride (Proscar) 5 mg PO DAILY [facility] Last Admin: 11/29/17 09:06 Dose: 5 mg Hydroxyzine HCl (Atarax) 10 mg PO Q6 PRN PRN Reason: Anxiety Meropenem 500 mg/ Sodium (Chloride) 100 mls @ 100 mls/hr IVPB Q12H [facility] PRN Reason: Protocol Last Admin: 11/29/17 11:56 Dose: 100 mls/hr Insulin Human Regular (Novolin R) 0 unit SC ACHS [facility] PRN Reason: Protocol Last Admin: 11/29/17 22:21 Dose: Not Given Mupirocin (Bactroban Ointment) 0 gm TOP DAILY [facility] Last Admin: 11/29/17 10:12 Dose: 1 applic Pantoprazole Sodium (Protonix Ec Tab) 40 mg PO DAILY [facility] Last Admin: 11/29/17 09:06 Dose: 40 mg Tamsulosin HCl (Flomax) 0.8 mg PO DAILY [facility] Last Admin: 11/29/17 09:06 Dose: 0.8 mg - Labs Labs: 11/28/17 06:26 11/28/17 06:26 PT 18.9 SECONDS (9.7-12.2) H 11/22/17 19:09 INR 1.7 11/22/17 19:09 APTT 45 SECONDS (21-34) H 11/22/17 19:09 Assessment and Plan (1) Septic shock Status: Acute (2) UTI (urinary tract infection) Status: Chronic (3) Gross hematuria Status: Acute (4) S/P cystoscopy Status: Acute (5) BPH (benign prostatic hyperplasia) Status: Chronic (6) Renal insufficiency Status: Acute
[2017-11-30] MEDS: Albuterol-Ipratrop 3 mg / 0.5 (3 ml) UD INH SCH ×3 (01:45→13:08)
[2017-11-30] MEDS: Dextrose 50% SYRINGE Inj (50 ml) IV PRN ×3 (06:29→16:50)
[2017-11-30] MEDS: (Novolin R) Insulin Human Regular 100 units/ml vial SC SCH ×4 (07:48→22:23)
[2017-11-30 08:08] LABS: BASO % 0.5 % (0.0-2.0); EOS # 0.3 K/uL (0.0-0.7); EOS % 3.4 % (0.0-4.0); HEMOGLOBIN 13.9 g/dL (12.0-18.0); LYMPH # 0.9 K/uL (1.0-4.3); LYMPH % 9.1 % (20.0-40.0); MEAN CELL VOLUME 87.8 fL (80.0-94.0); MEAN CORPUSCULAR HEMOGLOBIN 30.7 pg (27.0-31.0); MEAN PLATELET VOLUME 10.9 fL (7.2-11.7); MONO # 0.8 K/uL (0.0-0.8); MONO % 7.9 % (0.0-10.0); NEUT # 7.9 K/uL (1.8-7.0); NEUT % 79.1 % (50.0-75.0); PLATELET COUNT 141 K/uL (130-400); RBC 4.51 Mil/uL (4.40-5.90); RED CELL DISTRIBUTION WIDTH 14.2 % (11.5-14.5)
[2017-11-30 08:26] LABS: ALB/GLOB RATIO 0.8 (1.0-2.1); ALBUMIN 2.5 g/dL (3.5-5.0); ALT/SGPT 47 U/L (21-72); AST/SGOT 45 U/L (17-59); BLOOD UREA NITROGEN 25 mg/dL (9-20); CALCIUM 8.1 mg/dl (8.6-10.4); GFR AFRICAN-AMERICAN > 60; GFR NON-AFRICAN AMERICAN > 60
[2017-11-30 09:08] LABS: LYMPHOCYTE 11 % (20-40); MONOCYTE 9 % (0-10); NEUTROPHIL 80 % (50-75); PLATELET ESTIMATE NORMAL (NORMAL); TOTAL CELLS COUNTED 100
[2017-11-30] MEDS: Pantoprazole 40 mg EC Tab PO SCH (10:44)
[2017-11-30] MEDS: Meropenem 500 MG in Sodium Chloride 0.9% 100 ML IVPB SCH ×2 (11:32→23:35)
--- NOTE | 2017-11-30 13:30 | CP.PCM.PN ---
Subjective - Date & Time of Evaluation Date of Evaluation: 11/30/17 Time of Evaluation: 13:27 - Subjective Subjective: "My back hurts, please get me out of the bed" Objective - Vital Signs/Intake and Output Vital Signs (last 24 hours): Temp Pulse Resp BP Pulse Ox 97.6 F 51 L 20 142/81 93 L 11/30/17 07:30 11/30/17 08:20 11/30/17 07:30 11/30/17 07:30 11/30/17 07:30 Intake and Output: 11/30/17 11/30/17 06:59 18:59 Output Total 700 Balance -700 - Medications Medications: Current Medications Albuterol/Ipratropium (Duoneb 3 Mg/0.5 Mg (3 Ml) Ud) 3 ml INH RQ6 [facility] Last Admin: 11/30/17 13:08 Dose: 3 ml Dextrose (Dextrose 50% Inj) 50 ml IV Q2H PRN PRN Reason: Hypoglycemia Last Admin: 11/30/17 11:32 Dose: 50 ml Finasteride (Proscar) 5 mg PO DAILY [facility] Last Admin: 11/30/17 10:44 Dose: 5 mg Hydroxyzine HCl (Atarax) 10 mg PO Q6 PRN PRN Reason: Anxiety Last Admin: 11/30/17 02:16 Dose: 10 mg Meropenem 500 mg/ Sodium (Chloride) 100 mls @ 100 mls/hr IVPB Q12H [facility] PRN Reason: Protocol Last Admin: 11/30/17 11:32 Dose: 100 mls/hr Insulin Human Regular (Novolin R) 0 unit SC ACHS [facility] PRN Reason: Protocol Last Admin: 11/30/17 11:56 Dose: Not Given Mupirocin (Bactroban Ointment) 0 gm TOP DAILY [facility] Last Admin: 11/30/17 10:45 Dose: 1 applic Pantoprazole Sodium (Protonix Ec Tab) 40 mg PO DAILY [facility] Last Admin: 11/30/17 10:44 Dose: 40 mg Tamsulosin HCl (Flomax) 0.8 mg PO DAILY [facility] Last Admin: 11/30/17 10:44 Dose: 0.8 mg - Labs Labs: 11/30/17 08:02 11/30/17 08:02 PT 18.9 SECONDS (9.7-12.2) H 11/22/17 19:09 INR 1.7 11/22/17 19:09 APTT 45 SECONDS (21-34) H 11/22/17 19:09 - Constitutional Appears: Chronically Ill - Head Exam Head Exam: ATRAUMATIC, NORMAL INSPECTION, NORMOCEPHALIC - Eye Exam Eye Exam: EOMI, Normal appearance, PERRL Pupil Exam: NORMAL ACCOMODATION, PERRL - ENT Exam ENT Exam: Mucous Membranes Dry - Neck Exam Neck Exam: Normal Inspection - Respiratory Exam Respiratory Exam: Decreased Breath Sounds, NORMAL BREATHING PATTERN - Cardiovascular Exam Cardiovascular Exam: REGULAR RHYTHM - GI/Abdominal Exam GI & Abdominal Exam: Normal Bowel Sounds - Rectal Exam Rectal Exam: Deferred - Exam Exam: NORMAL INSPECTION - Extremities Exam Extremities Exam: Pedal Edema Additional comments: poor perfusion - Neurological Exam Neurological Exam: Alert, Oriented x3 Neuro motor strength exam: Left Upper Extremity: 2/, Right Upper Extremity: 2/ , Left Lower Extremity: 2/, Right Lower Extremity: 2 - Psychiatric Exam Psychiatric exam: Normal Affect, Normal Mood - Skin Skin Exam: Erythema, Mottled, Petechiae Assessment and Plan - Assessment and Plan (Free Text) Assessment: Patient seen and examined in bed, alert and oriented, much less anxious than yesterday. Hawk drains clear urine. Patient seen by Doctor Андрей and cleared for discharge. Patient's close friend Idalia Uriostegui at bed side. Per Moody, him and patient grew up together since age f 7 ears, went to school together and graduated together. Patient sated that Moody was the closest person to him, and he would ant Moody to be involved in all Medical decision making situations. Moody visits patient regularly, buys him clothes and advocates for the patient. In presence of the patient, I reviewed his current condition, recent blood results and plan for discharge to [place]. I suggested that it would be beneficial for the patient if we discussed the Advance Directive. I offered ample information about Advance Directive. AGUSTINA introduced. I made sure patient and his friend Moody understood the meaning of DNR/DNI. Patient was very clear stating that if ordinary measures were not enough to support his life, he would want to be allowed natural . Patient stated ; I do not want to be hooked up to the machine". AGUSTINA completed and reviewed with patient and his friend Moody. Patient choose DNR/DNI and signed POLST himself. I gave copy of it to his friend Moody. This was shared with Leslye SEGREGATOR and nursing. Impression * Hematuria is resolving * Severe discoloration of LEs due to PVD * Lower back pain due to prolonged bed rest * Generalized weakness, unable to reposition on his own and needs a lot of assistance with OOB to chair Suggestions * Promote skin integrity * PT for OB to chair daily * Dicharge planing to NH * DNR/DNI, POLST on chart Thank you for consulting Palliative care.
--- NOTE | 2017-11-30 16:53 | PN ---
DATE: 11/30/2017 TIME OF FOLLOWUP: Roughly 11:55 a.m. SUBJECTIVE: The patient is now resting very comfortably at the bedside with his 16[place] Beal[place] catheter draining very light sylvester urine well without any complaints. The patient is much more alert today and appears to be less confused. His blood cultures were positive for E. coli and ESBL and sensitive to the meropenem. PHYSICAL EXAMINATION: Today: ABDOMEN: Soft, nondistended, nontender. No CVA tenderness. No suprapubic tenderness. GENITALIA: Testicles are down bilaterally and nontender. The 16[place] Bealeton catheter draining very light sylvester urine well. VITAL SIGNS: Today, 11/30/2017, shows a temperature of 97.6, pulse rate of 67, blood pressure is 142/81 in a lying position, respiratory rate is 20, and O2 sat with nasal cannula is 93%. LABORATORY DATA: His laboratory evaluation today, 11/30/2017, shows a CBC with a WBC count of 10, hemoglobin of 13.9, and hematocrit of 39.7 with a platelet count of 141,000. His chem profile today, 11/30/2017, shows a glucose of 70. BUN and creatinine of 25 and 0.9 respectively with the GFR of greater than 60, showing complete improvement in his renal function. CO2 was 28. Calcium was 8.1. Total bilirubin 2.0. AST 45, ALT 47, and alk phosphatase 74. His urinalysis on 11/29/2017 shows the color was yellow, clarity was clear, pH 6.0, specific gravity 1.011, protein negative, glucose normal, ketones trace, blood 3+, nitrite negative, bilirubin negative, urobilinogen normal, leukocyte esterase negative, 3 wbc's, 36 rbc's, and s few bacteria per high-powered field. DIAGNOSTIC IMPRESSION: For this patient is improved urosepsis, on IV meropenem. PLAN: Continue IV antibiotics per ID and continue the patient on his psych regimen as per Psychiatry. The patient can be seen in office followup in one week and be discharged home with the Bealeton catheter. Norman Chiang MD
--- NOTE | 2017-11-30 20:04 | PN ---
DATE: ENDO FOLLOWUP NOTE LOCATION: Room 555. SUBJECTIVE: This is a 72-year-old male presenting here with septic shock and supervening bacteremia with ESBL E. coli, currently receiving IV antibiotic management, and is also being followed closely for metabolic management. He has had symptomatic bouts of hypoglycemia that is actually improving as noted, and a very big factor is a nutritional etiology with the patient's very poor and suboptimal meal portions as noted. His glucose levels overnight have ranged from 56 to 70 mg/dL. His latest chemistries with a BUN of 25, sodium 142, potassium 3.6, chloride 106, CO2 28, glucose 70, and creatinine is 0.9. ASSESSMENT: So at this time, we will continue the present medical management and there is no indication for any kind of oral hypoglycemic therapy or any basal insulin therapy at this time. He is only receiving a very minimal coverage scale for glucose levels of only above 300 mg/dL. We will continue the fingerstick glucose done 4 times a day as noted. We will obtain serial chemistries and supplement accordingly as needed. We will follow. Ximena Guerrero MD
--- NOTE | 2017-11-30 22:42 | CP.PCM.PN ---
Subjective - Date & Time of Evaluation Date of Evaluation: 11/30/17 Time of Evaluation: 22:42 - Subjective Subjective: CHIEF COMPLAINTS TODAY : afebrile, SEEN ON 5T- awake/more responsive ROS. HEENT : N. Resp : No cough, wheezing ,pleuritic CP ,or hemoptysis Cardio : No anginal CP, PND, orthopnea, palpitation GI : No abd.pain, n/v ,diarrhea or GI bleeding . CRANIOLOGIST : No headache, vertigo, focal deficit. Musculoskel : No joint swelling , Derm : No rash Psych : Normal affect. Ext : No swelling ,calf pain LT FOOT IN DRESSING +ve FOLY PE. Pt. is MORE RESPONSIVE AT TIMES V.S As noted in the chart Head ,ear nose,throat and eyes : Normal. Neck : Supple with normal carotids. Lungs: Clear air entry. Heart : S1 & S2 normal with S4. No murmur. Abd : MILD TENDERNESS SUPRAPUBIC, with normal bowel sounds. Neuro : Moves all ext. with no localized deficit. Ext : 1+ edema with intact pulses.TRAUMATIC AVULSION OF LT. 2ND TOE NAIL. CHRONIC STASIS DERMATITIS CHANGES B/L LE.). Negative for: calf tenderness Derm : No rashes or decubitus ulcer. LABS/RADIOLOGY: WBC 11.7--> 10.0, PLT 141K CREAT 1.1/bun 30. CXR 11/27/17 -decreased RT. air space disease with atelectasis left base. Trace left pleural effusion. BLOOD CULTURE 11/29 -VE 24HRS BLOOD CULTURE - +VE ESBL E.COLI URINE CULTUR - -VE LFTS IMPROVING, BILI 1.9 , AST 63, ALT 75 11/28/17 CREAT 1.1/BUN 30 11/28/17 IMPROVING ASSESSMENT S/P SEPTIC SHOCK/BANDEMIA GRAM-NEGATIV SEPSIS-SOURCE HEMATURIA S/P CYSTOSCOPY. ASPIRATION PNEUMONIA RT .SIDE. RENAL INSUFFICIENCY. TRANSAMINITIS ? SHOCK LIVER BPH. /PLAN CONTINUE IV MERREM 500MG IV B55MBIJ.11/24/17-7TH DAY. F/U CXR F/U LFTS. IV FLUIDS PER PMD LWC LT FOOT PER PODIATRY PER NOTES ONGOING DISCUSSIONS WITH PALLIATIVE CARE. Objective - Vital Signs/Intake and Output Vital Signs (last 24 hours): Temp Pulse Resp BP Pulse Ox 98.1 F 72 20 162/79 H 98 11/30/17 15:52 11/30/17 15:52 11/30/17 15:52 11/30/17 15:52 11/30/17 15:52 - Medications Medications: Current Medications Dextrose (Dextrose 50% Inj) 50 ml IV Q2H PRN PRN Reason: Hypoglycemia Last Admin: 11/30/17 16:50 Dose: 25 ml Finasteride (Proscar) 5 mg PO DAILY [facility] Last Admin: 11/30/17 10:44 Dose: 5 mg Hydroxyzine HCl (Atarax) 10 mg PO Q6 PRN PRN Reason: Anxiety Last Admin: 11/30/17 02:16 Dose: 10 mg Meropenem 500 mg/ Sodium (Chloride) 100 mls @ 100 mls/hr IVPB Q12H [facility] PRN Reason: Protocol Last Admin: 11/30/17 11:32 Dose: 100 mls/hr Dextrose (Dextrose 10% In Water) 1,000 mls @ 40 mls/hr IV .Q24H [facility] Last Admin: 11/30/17 18:22 Dose: 40 mls/hr Insulin Human Regular (Novolin R) 0 unit SC ACHS [facility] PRN Reason: Protocol Last Admin: 11/30/17 22:23 Dose: Not Given Mupirocin (Bactroban Ointment) 0 gm TOP DAILY [facility] Last Admin: 11/30/17 10:45 Dose: 1 applic Pantoprazole Sodium (Protonix Ec Tab) 40 mg PO DAILY [facility] Last Admin: 11/30/17 10:44 Dose: 40 mg Tamsulosin HCl (Flomax) 0.8 mg PO DAILY [facility] Last Admin: 11/30/17 10:44 Dose: 0.8 mg - Labs Labs: 11/30/17 08:02 11/30/17 08:02 PT 18.9 SECONDS (9.7-12.2) H 11/22/17 19:09 INR 1.7 11/22/17 19:09 APTT 45 SECONDS (21-34) H 11/22/17 19:09 Assessment and Plan (1) Septic shock Status: Acute (2) UTI (urinary tract infection) Status: Chronic (3) Gross hematuria Status: Acute (4) S/P cystoscopy Status: Acute (5) BPH (benign prostatic hyperplasia) Status: Chronic (6) Renal insufficiency Status: Acute
--- NOTE | 2017-11-30 23:44 | CP.PCM.PN ---
Subjective - Date & Time of Evaluation Date of Evaluation: 11/30/17 Time of Evaluation: 18:45 - Subjective Subjective: Pt seen and evaluated at bedside, pt is doing well, afebrile, not septice, still have watts cath in place , he was seen by urology too Objective - Vital Signs/Intake and Output Vital Signs (last 24 hours): Temp Pulse Resp BP Pulse Ox 97.9 F 70 20 126/71 98 11/30/17 23:33 11/30/17 23:33 11/30/17 23:33 11/30/17 23:33 11/30/17 23:33 Intake and Output: 11/30/17 12/01/17 18:59 06:59 Intake Total 400 Output Total 1000 Balance -600 - Medications Medications: Current Medications Dextrose (Dextrose 50% Inj) 50 ml IV Q2H PRN PRN Reason: Hypoglycemia Last Admin: 11/30/17 16:50 Dose: 25 ml Finasteride (Proscar) 5 mg PO DAILY [facility] Last Admin: 11/30/17 10:44 Dose: 5 mg Hydroxyzine HCl (Atarax) 10 mg PO Q6 PRN PRN Reason: Anxiety Last Admin: 11/30/17 02:16 Dose: 10 mg Meropenem 500 mg/ Sodium (Chloride) 100 mls @ 100 mls/hr IVPB Q12H [facility] PRN Reason: Protocol Last Admin: 11/30/17 23:35 Dose: 100 mls/hr Dextrose (Dextrose 10% In Water) 1,000 mls @ 40 mls/hr IV .Q24H [facility] Last Admin: 11/30/17 18:22 Dose: 40 mls/hr Insulin Human Regular (Novolin R) 0 unit SC ACHS [facility] PRN Reason: Protocol Last Admin: 11/30/17 22:23 Dose: Not Given Mupirocin (Bactroban Ointment) 0 gm TOP DAILY [facility] Last Admin: 11/30/17 10:45 Dose: 1 applic Pantoprazole Sodium (Protonix Ec Tab) 40 mg PO DAILY [facility] Last Admin: 11/30/17 10:44 Dose: 40 mg Tamsulosin HCl (Flomax) 0.8 mg PO DAILY [facility] Last Admin: 11/30/17 10:44 Dose: 0.8 mg - Labs Labs: 11/30/17 08:02 11/30/17 08:02 PT 18.9 SECONDS (9.7-12.2) H 11/22/17 19:09 INR 1.7 11/22/17 19:09 APTT 45 SECONDS (21-34) H 11/22/17 19:09 - Constitutional Appears: No Acute Distress - Head Exam Head Exam: ATRAUMATIC, NORMAL INSPECTION, NORMOCEPHALIC - Eye Exam Eye Exam: EOMI, Normal appearance, PERRL Pupil Exam: NORMAL ACCOMODATION, PERRL - Respiratory Exam Respiratory Exam: Clear to Ausculation Bilateral, NORMAL BREATHING PATTERN - Cardiovascular Exam Cardiovascular Exam: REGULAR RHYTHM, +S1, +S2. absent: Murmur - GI/Abdominal Exam GI & Abdominal Exam: Soft, Normal Bowel Sounds. absent: Tenderness Assessment and Plan (1) Toxic metabolic encephalopathy Status: Acute (2) S/P cystoscopy Status: Acute (3) Sepsis Status: Acute (4) Leukocytosis Status: Acute (5) UTI (lower urinary tract infection) Status: Acute
[2017-12-01] MEDS: (Novolin R) Insulin Human Regular 100 units/ml vial SC SCH ×2 (08:00→11:51)
[2017-12-01] MEDS: Pantoprazole 40 mg EC Tab PO SCH (11:00)
[2017-12-01 11:37] LABS: BASO % 0.3 % (0.0-2.0); EOS # 0.2 K/uL (0.0-0.7); EOS % 2.2 % (0.0-4.0); LYMPH # 0.7 K/uL (1.0-4.3); LYMPH % 8.5 % (20.0-40.0); MEAN CELL VOLUME 88.1 fL (80.0-94.0); MEAN CORPUSCULAR HEMOGLOBIN 30.4 pg (27.0-31.0); MEAN CORPUSCULAR HGB CONC 34.6 g/dL (33.0-37.0); MEAN PLATELET VOLUME 10.7 fL (7.2-11.7); MONO # 0.6 K/uL (0.0-0.8); NEUT # 6.7 K/uL (1.8-7.0); PLATELET COUNT 170 K/uL (130-400); RBC 4.26 Mil/uL (4.40-5.90); RED CELL DISTRIBUTION WIDTH 13.8 % (11.5-14.5); WHITE BLOOD COUNT 8.2 K/uL (4.8-10.8)
[2017-12-01] MEDS: Meropenem 500 MG in Sodium Chloride 0.9% 100 ML IVPB SCH (11:38)
[2017-12-01 12:00] LABS: ALB/GLOB RATIO 0.8 (1.0-2.1); ALBUMIN 2.3 g/dL (3.5-5.0); ALT/SGPT 51 U/L (21-72); AST/SGOT 40 U/L (17-59); BLOOD UREA NITROGEN 22 mg/dL (9-20); CALCIUM 7.6 mg/dl (8.6-10.4); GFR AFRICAN-AMERICAN > 60; GFR NON-AFRICAN AMERICAN > 60
[2017-12-01 12:09] LABS: BANDS 3 % (0-2); EOSINOPHIL 1 % (0-4); LYMPHOCYTE 9 % (20-40); MONOCYTE 4 % (0-10); NEUTROPHIL 83 % (50-75); OVALOCYTES SLIGHT; PLATELET ESTIMATE NORMAL (NORMAL); TOTAL CELLS COUNTED 100
--- NOTE | 2017-12-01 13:02 | CP.PCM.PN ---
Subjective - Date & Time of Evaluation Date of Evaluation: 12/01/17 Time of Evaluation: 13:01 - Subjective Subjective: PATIENT WAS ADMITTED FOR SEPSIS AAOX3 DENIES CHEST PAIN / FEVER / SOB NO SIGN OF DISTRESS NOTED Objective - Vital Signs/Intake and Output Vital Signs (last 24 hours): Temp Pulse Resp BP Pulse Ox 97.4 F L 68 20 149/72 96 12/01/17 07:10 12/01/17 07:10 12/01/17 07:10 12/01/17 07:10 12/01/17 07:10 Intake and Output: 12/01/17 12/01/17 06:59 18:59 Intake Total 400 Output Total 1500 Balance -1100 - Medications Medications: Current Medications Albuterol/Ipratropium (Duoneb 3 Mg/0.5 Mg (3 Ml) Ud) 3 ml INH RQ6 [facility] Dextrose (Dextrose 50% Inj) 50 ml IV Q2H PRN PRN Reason: Hypoglycemia Last Admin: 11/30/17 16:50 Dose: 25 ml Finasteride (Proscar) 5 mg PO DAILY [facility] Last Admin: 12/01/17 11:00 Dose: Not Given Hydroxyzine HCl (Atarax) 10 mg PO Q6 PRN PRN Reason: Anxiety Last Admin: 11/30/17 02:16 Dose: 10 mg Meropenem 500 mg/ Sodium (Chloride) 100 mls @ 100 mls/hr IVPB Q12H [facility] PRN Reason: Protocol Last Admin: 12/01/17 11:38 Dose: 100 mls/hr Dextrose (Dextrose 10% In Water) 1,000 mls @ 40 mls/hr IV .Q24H [facility] Last Admin: 11/30/17 18:22 Dose: 40 mls/hr Insulin Human Regular (Novolin R) 0 unit SC ACHS [facility] PRN Reason: Protocol Last Admin: 12/01/17 11:51 Dose: Not Given Mupirocin (Bactroban Ointment) 0 gm TOP DAILY [facility] Last Admin: 12/01/17 10:22 Dose: 1 applic Pantoprazole Sodium (Protonix Ec Tab) 40 mg PO DAILY [facility] Last Admin: 12/01/17 11:00 Dose: Not Given Tamsulosin HCl (Flomax) 0.8 mg PO DAILY [facility] Last Admin: 12/01/17 11:00 Dose: Not Given - Labs Labs: 12/01/17 11:26 12/01/17 11:26 PT 18.9 SECONDS (9.7-12.2) H 11/22/17 19:09 INR 1.7 11/22/17 19:09 APTT 45 SECONDS (21-34) H 11/22/17 19:09 Assessment and Plan - Assessment and Plan (Free Text) Assessment: PATEINT SEEN AND EXAMINED AT THE BEDSIDE LUNG SOUND CLEAR MISSY AFEBRILE /WBC WNL/ VITAL SIGN STABLE DICUSS WITH DR FORRESTER WHO CLEAR FOR DC PLACE UNDEER THE SERVICE OF DR FORRESTER AT [facility] ---CALL DR FORRESTER FOR ADMITTING ORDER CONTINUE ALL YOUR MEDICATION NEW PRESCRIPTION GIVEN ATARAX 10MG PO Q6H PRN PROSCAR 5 MG PO DAILY BACTROBAN TOP DAILY [facility] PROTOCOL BLACKBURN CARE PER DR FORRESTER AND FACILITY PROTOCOL FOOT CARE PER DR SALCEDO AND FACILITY PROTOCOL Bilateral foot cleansed with saline solution, applied bactroban, dsd, and cling CALL DR FORRESTER FOR FURTHER ORDER PLEASE MAKE ARRANGEMENT TO SEE DR SIMPSON IN WEEK FOR F/U ---CALL FOR APPOINTMENT DISCUSS WITH PATIENT WHO AGREE AND VERBALIZED UNDERSTANDING
[2017-12-01] MEDS ORDERED: Albuterol-Ipratrop 3 mg / 0.5 (3 ml) UD INH SCH (14:00)
--- NOTE | 2017-12-01 14:00 | CP.PCM.PN ---
Subjective - Date & Time of Evaluation Date of Evaluation: 12/01/17 Time of Evaluation: 14:00 - Subjective Subjective: CHIEF COMPLAINTS TODAY : afebrile, awake/more responsive ROS. HEENT : N. Resp : No cough, wheezing ,pleuritic CP ,or hemoptysis Cardio : No anginal CP, PND, orthopnea, palpitation GI : No abd.pain, n/v ,diarrhea or GI bleeding . 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 Musculoskel : No joint swelling , Derm : No rash Psych : Normal affect. Ext : No swelling ,calf pain LT FOOT IN DRESSING +ve FOLY PE. Pt. is MORE RESPONSIVE AT TIMES V.S As noted in the chart Head ,ear nose,throat and eyes : Normal. Neck : Supple with normal carotids. Lungs: Clear air entry. Heart : S1 & S2 normal with S4. No murmur. Abd : SOFT , with normal bowel sounds. Neuro : Moves all ext. with no localized deficit. Ext : 1+ edema with intact pulses.TRAUMATIC AVULSION OF LT. 2ND TOE NAIL. CHRONIC STASIS DERMATITIS CHANGES B/L LE.). Negative for: calf tenderness Derm : No rashes or decubitus ulcer. LABS/RADIOLOGY: WBC 11.7--> 10.0, PLT 141K CREAT 1.1/bun 30. CXR 11/27/17 -decreased RT. air space disease with atelectasis left base. Trace left pleural effusion. BLOOD CULTURE 11/29 -VE 48 HRS MRSA -NOT DETECTED BLOOD CULTURE - +VE ESBL E.COLI URINE CULTUR - -VE LFTS IMPROVING, CREAT 0.9 /BUN 22 -IMPROVING 2D ECHO 11/23/17 BICUSPID AV. LVEF 55% SCLEROTIC AV, MV (SEE FULL REPORT ) ASSESSMENT S/P SEPTIC SHOCK/BANDEMIA GRAM-NEGATIV SEPSIS-SOURCE HEMATURIA S/P CYSTOSCOPY. ASPIRATION PNEUMONIA RT .SIDE. RENAL INSUFFICIENCY. TRANSAMINITIS ? SHOCK LIVER--IMPROVING BPH. /PLAN CONTINUE IV MERREM 500MG IV [id number].11/24/17-8TH DAY. X6 MORE DAYS TO COMPLETE 14 DAYS F/U CXR F/U LFTS. IV FLUIDS PER PMD LWC LT FOOT PER PODIATRY PER NOTES ONGOING DISCUSSIONS WITH PALLIATIVE CAR PT DNR/DNI. Objective - Vital Signs/Intake and Output Vital Signs (last 24 hours): Temp Pulse Resp BP Pulse Ox 97.4 F L 68 20 149/72 96 12/01/17 07:10 12/01/17 07:10 12/01/17 07:10 12/01/17 07:10 12/01/17 07:10 Intake and Output: 12/01/17 12/01/17 06:59 18:59 Intake Total 400 Output Total 1500 Balance -1100 - Medications Medications: Current Medications Albuterol/Ipratropium (Duoneb 3 Mg/0.5 Mg (3 Ml) Ud) 3 ml INH RQ6 GHANSHYAM Last Admin: 12/01/17 13:28 Dose: 3 ml Dextrose (Dextrose 50% Inj) 50 ml IV Q2H PRN PRN Reason: Hypoglycemia Last Admin: 11/30/17 16:50 Dose: 25 ml Finasteride (Proscar) 5 mg PO DAILY [facility] Last Admin: 12/01/17 11:00 Dose: Not Given Hydroxyzine HCl (Atarax) 10 mg PO Q6 PRN PRN Reason: Anxiety Last Admin: 11/30/17 02:16 Dose: 10 mg Meropenem 500 mg/ Sodium (Chloride) 100 mls @ 100 mls/hr IVPB Q12H GHANSHYAM PRN Reason: Protocol Last Admin: 12/01/17 11:38 Dose: 100 mls/hr Dextrose (Dextrose 10% In Water) 1,000 mls @ 40 mls/hr IV .Q24H GHANSHYAM Last Admin: 11/30/17 18:22 Dose: 40 mls/hr Insulin Human Regular (Novolin R) 0 unit SC ACHS GHANSHYAM PRN Reason: Protocol Last Admin: 12/01/17 11:51 Dose: Not Given Mupirocin (Bactroban Ointment) 0 gm TOP DAILY [facility] Last Admin: 12/01/17 10:22 Dose: 1 applic Pantoprazole Sodium (Protonix Ec Tab) 40 mg PO DAILY GHANSHYAM Last Admin: 12/01/17 11:00 Dose: Not Given Tamsulosin HCl (Flomax) 0.8 mg PO DAILY [facility] Last Admin: 12/01/17 11:00 Dose: Not Given - Labs Labs: 12/01/17 11:26 12/01/17 11:26 PT 18.9 SECONDS (9.7-12.2) H 11/22/17 19:09 INR 1.7 11/22/17 19:09 APTT 45 SECONDS (21-34) H 11/22/17 19:09 Assessment and Plan (1) Septic shock Status: Acute (2) UTI (urinary tract infection) Status: Chronic (3) Gross hematuria Status: Acute (4) S/P cystoscopy Status: Acute (5) BPH (benign prostatic hyperplasia) Status: Chronic (6) Renal insufficiency Status: Acute
[2017-12-01 16:00] VITALS: BP 150/70; PULSE 69; TEMP 98.3; O2SAT 98
--- NOTE | 2017-12-01 21:31 | PN ---
DATE: 12/01/2017 ENDOCRINOLOGY FOLLOWUP NOTE LOCATION: Room 556. This is a 72-year-old male, presenting here with septic shock and supervening bacteremia, currently undergoing IV antibiotic management and is also being followed closely for metabolic management. He has episodic bouts of symptomatic hypoglycemia and latest glucose levels today have ranged from 76 mg/dL to 85 mg/dL. The latest chemistries showed a BUN of 22, sodium 136, potassium 3.7, chloride 103, CO2 of 28, glucose 365, and creatinine 0.9. So at this time, he is still on the dextrose infusion with D10W as given, and this is only at 40 mL per hour as ordered. We will obtain serial chemistries and supplement accordingly as needed. We will encourage increased oral intake, especially small frequent feedings as indicated. We will follow and advise accordingly. Ximena Guerrero MD
--- NOTE | 2017-12-01 23:00 | CP.PCM.DIS ---
Provider - Provider Date of Admission: 11/22/17 21:01 Attending physician: Liborio Hunter MD Time Spent in preparation of Discharge (in minutes): 45 Diagnosis - Discharge Diagnosis (1) Toxic metabolic encephalopathy Status: Acute (2) S/P cystoscopy Status: Acute (3) Sepsis Status: Acute (4) Leukocytosis Status: Acute (5) UTI (lower urinary tract infection) Status: Acute Hospital Course - Lab Results Lab Results: Micro Results 11/29/17 06:36 Blood-Thru Central Line Blood Culture - Preliminary NO GROWTH AFTER 48 HOURS 11/29/17 06:36 Blood-Thru Central Line Blood Culture - Preliminary NO GROWTH AFTER 48 HOURS 11/29/17 07:29 Naris MRSA Culture - Final MRSA NOT DETECTED 11/22/17 23:10 Blood Blood Culture - Final NO GROWTH AFTER 5 DAYS 11/22/17 23:10 Blood Gram Stain - Final TEST NOT PERFORMED 11/24/17 06:55 Leg - Right Gram Stain - Final 11/24/17 06:55 Leg - Right Wound Culture - Final Coagulase Neg Staphylococcus 11/22/17 23:10 Blood Blood Culture - Final Escherichia Coli 11/22/17 23:10 Blood Gram Stain - Final 11/23/17 00:53 Naris MRSA Culture (Admit) - Final MRSA NOT DETECTED 11/22/17 21:14 Urine,Catheterized Urine Culture - Final No Growth (<1,000 CFU/ML) Most Recent Lab Values WBC 8.2 K/uL (4.8-10.8) 12/01/17 11:26 RBC 4.26 Mil/uL (4.40-5.90) L 12/01/17 11:26 Hgb 13.0 g/dL (12.0-18.0) 12/01/17 11:26 Hct 37.5 % (35.0-51.0) 12/01/17 11:26 MCV 88.1 fL (80.0-94.0) 12/01/17 11:26 MCH 30.4 pg (27.0-31.0) 12/01/17 11:26 MCHC 34.6 g/dL (33.0-37.0) 12/01/17 11:26 RDW 13.8 % (11.5-14.5) 12/01/17 11:26 Plt Count 170 K/uL (130-400) 12/01/17 11:26 MPV 10.7 fL (7.2-11.7) 12/01/17 11:26 Neut % (Auto) 82.0 % (50.0-75.0) H 12/01/17 11:26 Lymph % (Auto) 8.5 % (20.0-40.0) L 12/01/17 11:26 [place] % (Auto) 7.0 % (0.0-10.0) 12/01/17 11:26 Eos % (Auto) 2.2 % (0.0-4.0) 12/01/17 11:26 Baso % (Auto) 0.3 % (0.0-2.0) 12/01/17 11:26 Neut # (Auto) 6.7 K/uL (1.8-7.0) 12/01/17 11:26 Lymph # (Auto) 0.7 K/uL (1.0-4.3) L 12/01/17 11:26 [place] # (Auto) 0.6 K/uL (0.0-0.8) 12/01/17 11:26 Eos # (Auto) 0.2 K/uL (0.0-0.7) 12/01/17 11:26 Baso # (Auto) 0.0 K/uL (0.0-0.2) 12/01/17 11:26 Neutrophils % (Manual) 83 % (50-75) H 12/01/17 11:26 Band Neutrophils % 3 % (0-2) H 12/01/17 11:26 Lymphocytes % (Manual) 9 % (20-40) L 12/01/17 11:26 Monocytes % (Manual) 4 % (0-10) 12/01/17 11:26 Eosinophils % (Manual) 1 % (0-4) 12/01/17 11:26 Basophils % (Manual) 1 % (0-2) 11/26/17 06:18 Metamyelocytes % 8 % (0-0) H 11/22/17 19:09 Myelocytes % 5 % (0-0) H 11/22/17 19:09 Toxic Granulation Present 11/27/17 06:27 Platelet Estimate Normal (NORMAL) 12/01/17 11:26 Large Platelets Present 11/27/17 06:27 Giant Platelets Present 11/27/17 06:27 RBC Morphology Normal 11/30/17 08:02 Polychromasia Slight 11/26/17 06:18 Hypochromasia (manual) Slight 11/26/17 06:18 Poikilocytosis (manual Slight 11/25/17 05:53 Anisocytosis (manual) Slight 11/27/17 06:27 Ovalocytes Slight 12/01/17 11:26 [place] Cells Slight 11/24/17 06:28 ESR 2 mm/hr (0-15) 11/22/17 20:32 PT 18.9 SECONDS (9.7-12.2) H 11/22/17 19:09 INR 1.7 11/22/17 19:09 APTT 45 SECONDS (21-34) H 11/22/17 19:09 Puncture Site Rr 11/24/17 17:26 pCO2 33 mm/Hg (35-45) L 11/24/17 17:26 pO2 98 mm/Hg (80-100) 11/24/17 17:26 HCO3 20.8 mmol/L (21-28) L 11/24/17 17:26 ABG pH 7.37 (7.35-7.45) 11/24/17 17:26 ABG Total CO2 20.1 mmol/L (22-28) L 11/24/17 17:26 ABG O2 Saturation 99.3 % (95-98) H 11/24/17 17:26 ABG Base Excess -5.3 mmol/L (-2.0-3.0) L 11/24/17 17:26 Joseph Test Unable 11/24/17 17:26 ABG Potassium 3.8 mmol/L (3.6-5.2) 11/24/17 17:26 VBG pH 7.35 (7.32-7.43) 11/22/17 20:22 VBG pCO2 35 mmHg (40-60) L 11/22/17 20:22 VBG HCO3 18.6 mmol/L 11/22/17 20:22 VBG Total CO2 20.4 mmol/L (22-28) L 11/22/17 20:22 VBG O2 Sat (Calc) 40.6 % (40-65) 11/22/17 20: VBG Base Excess -5.6 mmol/L (0.0-2.0) L 11/22/17 20:22 VBG Potassium 3.4 mmol/L (3.6-5.2) L 11/22/17 20:22 A-a O2 Difference 117.0 mm/Hg 11/24/17 17:26 Respiratory Index 1.2 11/24/17 17:26 Sodium 143.0 mmol/l (132-148) 11/24/17 17:26 Chloride 118.0 mmol/L (98-107) H 11/24/17 17:26 Glucose 81 mg/dl (75-110) 11/24/17 17:26 Lactate 1.2 mmol/L (0.7-2.1) 11/24/17 17: Liter Flow 4.0 11/24/17 17: FiO2 36.0 % 11/24/17 17:26 Crit Value Called To Annabella betts rn 11/22/17 20:22 Crit Value Called By [place] 11/22/17 20:22 Crit Value Read Back Y 11/22/17 20:22 Blood Gas Notified Time 202411/22/17 20:22 Sodium 136 mmol/L (132-148) 12/01/17 11:26 Potassium 3.7 mmol/L (3.6-5.2) 12/01/17 11:26 Chloride 103 mmol/L (98-107) 12/01/17 11:26 Carbon Dioxide 28 mmol/L (22-30) 12/01/17 11:26 Anion Gap 8 (10-20) L 12/01/17 11:26 BUN 22 mg/dL (9-20) H 12/01/17 11:26 Creatinine 0.9 mg/dL (0.8-1.5) 12/01/17 11:26 Est GFR ( Amer) > 60 12/01/17 11:26 Est GFR (Non-Af Amer) > 60 12/01/17 11:26 POC Glucose (mg/dL) 95 mg/dL (65-110) 12/01/17 16:25 Random Glucose 365 mg/dL (75-110) H 12/01/17 11:26 Insulin Level 7.9 uIU/mL (2.0-19.6) 11/24/17 06:28 C-Peptide 6.02 ng/mL (0.80-3.85) H 11/23/17 17:22 Lactic Acid 5.0 mmol/L (0.7-2.1) H* 11/23/17 07:01 Calcium 7.6 mg/dl (8.6-10.4) L 12/01/17 11:26 Phosphorus 2.9 mg/dL (2.5-4.5) 11/28/17 06:26 Magnesium 1.8 mg/dL (1.6-2.3) 11/28/17 06:26 Total Bilirubin 1.7 mg/dL (0.2-1.3) H 12/01/17 11:26 AST 40 U/L (17-59) 12/01/17 11:26 ALT 51 U/L (21-72) 12/01/17 11:26 Alkaline Phosphatase 64 U/L (38-126) 12/01/17 11:26 Troponin I 0.3390 ng/mL (0.00-0.120) H* 11/23/17 13:24 C-React Prot High Sens > 15.00 mg/L (1.00-3.00) H 11/22/17 20:32 NT-Pro-B Natriuret Pep 3380 pg/mL (0-900) H 11/22/17 19:09 Total Protein 5.3 g/dL (6.3-8.3) L 12/01/17 11:26 Albumin 2.3 g/dL (3.5-5.0) L 12/01/17 11:26 Globulin 3.0 gm/dL (2.2-3.9) 12/01/17 11:26 Albumin/Globulin Ratio 0.8 (1.0-2.1) L 12/01/17 11:26 Procalcitonin 137.36 NG/ML (0.19-0.49) H 11/22/17 20:32 TSH 3rd Generation 2.29 mIU/L (0.46-4.68) 11/26/17 06:16 Cortisol AM Sample 17.5 ug/dL (4.46-22.7) 11/26/17 06:16 Arterial Blood Potassium 3.8 mmol/L (3.6-5.2) 11/24/17 17:26 Venous Blood Potassium 3.4 mmol/L (3.6-5.2) L 11/22/17 20:22 Urine Color Yellow (YELLOW) 11/29/17 06:36 Urine Clarity Clear (Clear) 11/29/17 06:36 Urine pH 6.0 (5.0-8.0) 11/29/17 06:36 Ur Specific [place] 1.011 (1.003-1.030) 11/29/17 06:36 Urine Protein Negative mg/dL (NEGATIVE) 11/29/17 06:36 Urine Glucose (UA) Normal mg/dL (Normal) 11/29/17 06:36 Urine Ketones Trace mg/dL (NEGATIVE) 11/29/17 06:36 Urine Blood 3+ (NEGATIVE) H 11/29/17 06:36 Urine Nitrate Negative (NEGATIVE) 11/29/17 06:36 Urine Bilirubin Negative (NEGATIVE) 11/29/17 06:36 Urine Urobilinogen Normal mg/dL (0.2-1.0) 11/29/17 06:36 Ur Leukocyte Esterase Neg Valeriano/uL (Negative) 11/29/17 06:36 Urine WBC (Auto) 3 /hpf (0-5) 11/29/17 06:36 Urine RBC (Auto) 36 /hpf (0-3) H 11/29/17 06:36 Ur Squamous Epith Cells < 1 /hpf (0-5) 11/29/17 06:36 Urine Bacteria Few (<OCC) H 11/22/17 20:42 Valproic Acid < 10.0 ug/mL (50.0-100.0) L 11/25/17 11:32 Heparin-induced Plt Ab Negative (Negative) 11/26/17 19:54 - Hospital Course Hospital Course: PT SEEN AND EXAMINED, IS STABLE FOR DISCHARGE, CONTINUE IV MERREM 500MG IV [id number].11/24/17-8TH DAY. X6 MORE DAYS TO COMPLETE 14 DAYS F/U CXR F/U LFTS. IV FLUIDS PER PMD LWC LT FOOT PER PODIATRY PER NOTES ONGOING DISCUSSIONS WITH PALLIATIVE CAR PT DNR/DNI. Discharge Exam - Head Exam Head Exam: ATRAUMATIC, NORMAL INSPECTION, NORMOCEPHALIC Discharge Plan - Discharge Medications Prescriptions: Valproic Acid [Depakene] 250 mg PO BID #60 capsule - Follow Up Plan Condition: SERIOUS Disposition: HOME/ ROUTINE Instructions: Heart Failure, Adult, Benign Prostatic Hyperplasia (Enlarged Prostate) (DC), Sepsis, Adult (DC), Sepsis (DC), Acute Hematuria (DC) Additional Instructions: PLACE UNDEER THE SERVICE OF DR HUNTER AT [facility] ---CALL DR HUNTER FOR ADMITTING ORDER CONTINUE ALL YOUR MEDICATION NEW PRESCRIPTION GIVEN ATARAX 10MG PO Q6H PRN PROSCAR 5 MG PO DAILY BACTROBAN TOP DAILY [facility] PROTOCOL BLACKBURN CARE PER DR HUNTER AND FACILITY PROTOCOL FOOT CARE PER DR SALCEDO AND FACILITY PROTOCOL Bilateral foot cleansed with saline solution, applied bactroban, dsd, and cling CALL DR HUNTER FOR FURTHER ORDER PLEASE MAKE ARRANGEMENT TO SEE DR SIMPSON IN WEEK FOR F/U ---CALL FOR APPOINTMENT Referrals: Norman Simpson MD [Staff Provider] - Lazaro Perez MD [Staff Provider] - Ximena Guerrero MD [Medical Doctor] - Tere Rojas MD [Staff Provider] - Liborio Hunter MD [Staff Provider] - Ramirez Lambert DPM [Staff Provider] - Rohit Liao MD [Staff Provider] -
== END 2017-12-01 16:47 | disposition home or self-care (01) | DRG 871 ==
LOC: C.ER 16:48 → C.6T 21:01 → C.9E 22:42 → C.9I 11-23 00:35 → C.5S 11-29 04:01 → UNDODISIN 12-01 15:13
PROVIDERS: ADMIT Internal Medicine; ATTEND Internal Medicine
DX: A41.51 Sepsis due to Escherichia coli [E. coli] (principal); G93.41 Metabolic encephalopathy; J69.0 Pneumonitis due to inhalation of food and vomit; K72.00 Acute and subacute hepatic failure without coma; R65.21 Severe sepsis with septic shock; J96.01 Acute respiratory failure with hypoxia; F05 Delirium due to known physiological condition; N17.9 Acute kidney failure, unspecified; N39.0 Urinary tract infection, site not specified; F25.9 Schizoaffective disorder, unspecified; F31.9 Bipolar disorder, unspecified; F41.9 Anxiety disorder, unspecified; I50.9 Heart failure, unspecified; N40.1 Benign prostatic hyperplasia with lower urinary tract symptoms; R31.0 Gross hematuria; I11.0 Hypertensive heart disease with heart failure; J44.9 Chronic obstructive pulmonary disease, unspecified

== ENCOUNTER 2017-12-13 10:33 | Inpatient (IN) | payer MEDICARE, MEDICAID ==
[2017-12-13 10:34] VITALS: BMI 26.4
--- NOTE | 2017-12-13 12:05 | C.PDOC ---
History Of Present Illness 72yo male with history of asthma, brought to ER from his snf for evaluation after patient was found unresponsive in the bathroom. Patient reports that he slipped and fell and was unable to get up. He denies any head injury, loss of consciousness, chest pain, cough or fever. Patient states he does have shortness of breath. Of note, patient is able to ambulate with a walker and occasionally uses a wheelchair. PMD: Liborio Hunter Time Seen by Provider: 12/13/17 11:34 Chief Complaint (Nursing): Shortness Of Breath History Per: Patient, EMS History/Exam Limitations: no limitations Associated Symptoms: denies: Fever, Chills, Chest Pain Past Medical History Reviewed: Historical Data, Nursing Documentation, Vital Signs Vital Signs: Last Vital Signs Temp 97.7 F 12/13/17 10:38 Pulse 113 H 12/13/17 15:59 Resp 20 12/13/17 15:59 BP 100/62 12/13/17 15:59 Pulse Ox 93 L 12/13/17 15:59 - Medical History PMH: Anxiety, Asthma, Benign Prostatic Hyperplasia (bladder problem), Bipolar Disorder, CHF, COPD, Depression, HTN, Hypercholesterolemia, Chronic Kidney Disease (renal insufficiency), Schizophrenia Denies: Diabetes, Hepatitis, Sexually Transmitted Disease Surgical History: Tonsillectomy - [facility] Procedures EXCIS DEBRIDE OF WOUND, INFECT, OR BURN (08/17/14) OCCUPATIONAL THERAPY (08/28/14) PHYSICAL THERAPY NEC (08/28/14) Family History: States: No Known Family Hx, Unknown Family Hx - Social History Hx Tobacco Use: No Hx Alcohol Use: No Hx Substance Use: No - Immunization History Hx Tetanus Toxoid Vaccination: No Hx Influenza Vaccination: No Hx Pneumococcal Vaccination: No Review Of Systems Except As Marked, All Systems Reviewed And Found Negative. Constitutional: Negative for: Fever, Chills Cardiovascular: Negative for: Chest Pain Respiratory: Positive for: Shortness of Breath Neurological: Negative for: Weakness, Headache Physical Exam - Physical Exam Appears: Non-toxic, No Acute Distress Skin: Normal Color Head: Atraumatic, Normacephalic Eye(s): bilateral: Normal Inspection, PERRL, EOMI Oral Mucosa: Dry, Other (food particles noted in mouth) Neck: Normal ROM, Supple Chest: Symmetrical Cardiovascular: Rhythm Regular Respiratory: Normal Breath Sounds, No Rales, No Rhonchi, No Wheezing Extremity: Normal ROM, No Pedal Edema Neurological/Psych: Oriented x3, Normal Speech, Normal Cognition, Normal Motor, Normal Sensation ED Course And Treatment - Laboratory Results Result Diagrams: 12/13/17 12:18 12/13/17 12:18 ECG: Interpreted By Me, Viewed By Me ECG Rhythm: Sinus Tachycardia Interpretation Of ECG: Normal axis Rate From EC O2 Sat by Pulse Oximetry: 92 (RA) Medical Decision Making Medical Decision Making: Impression: Syncope, shortness of breath Plan: -- Labs -- CXR -- Urinalysis -- Nebulizer treatment Progress: 1346 Labs reviewed, and Troponin elevated with levels of 0.[address] Hunter, patient's PMD, recommending Aspirin and Plavix. He is requesting Dr. Ramirez, patient's computer game designer be contacted as well. Case discussed with Dr. Ramirez, recommending CT Head as patient has a ? history of slip and fall. Dr. Ramirez recommends Aspirin, Plavix and Lovenox. CT Head w/o contrast ordered. 1405 CXR FINDINGS: LUNGS: Peripheral right upper lobe infiltrate. Right basilar atelectasis. PLEURA: Small right pleural effusion. No appreciable pneumothorax. Elevation of the left hemidiaphragm. CARDIOVASCULAR: Atherosclerotic aortic calcifications. Cardiomediastinal silhouette stably prominent. OSSEOUS STRUCTURES: Unchanged. VISUALIZED UPPER ABDOMEN: Normal. OTHER FINDINGS: None. IMPRESSION: Peripheral right upper lobe infiltrate. Small right pleural effusion. 1449 CT Head FINDINGS: HEMORRHAGE: No intracranial hemorrhage. BRAIN: There are mild chronic microangiopathic changes. 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 There is no mass, mass effect or abnormal extra-axial fluid collection. There is no territorial infarction. VENTRICLES: There is mild age-related global parenchymal volume loss and proportionate enlargement of the ventricles and cortical sulci. CALVARIUM: The skull base and calvarium are normal. PARANASAL SINUSES: There are retention cysts/polyps in both maxillary sinuses. The remaining included paranasal sinusesare clear. MASTOID AIR CELLS: Predominantly clear. OTHER FINDINGS: None. IMPRESSION: No acute intracranial abnormality. No significant interval change. [address] Hunter for NSTEMI, Pneumonia (upper lobe), Syncope, r/o TB Disposition - Disposition - Scribe Statement The provider has reviewed the documentation as recorded by the Scribe (Donna Wilkes) Provider Attestation: All medical record entries made by the Scribe were at my direction and personally dictated by me. I have reviewed the chart and agree that the record accurately reflects my personal performance of the history, physical exam, medical decision making, and the department course for this patient. I have also personally directed, reviewed, and agree with the discharge instructions and disposition.
[2017-12-13 12:23] LABS: BASO # 0.1 K/uL (0.0-0.2); BASO % 0.6 % (0.0-2.0); EOS % 0.4 % (0.0-4.0); HEMOGLOBIN 11.5 g/dL (12.0-18.0); LYMPH # 0.6 K/uL (1.0-4.3); LYMPH % 7.6 % (20.0-40.0); MEAN CELL VOLUME 87.2 fL (80.0-94.0); MEAN CORPUSCULAR HEMOGLOBIN 29.4 pg (27.0-31.0); MEAN CORPUSCULAR HGB CONC 33.7 g/dL (33.0-37.0); MEAN PLATELET VOLUME 10.4 fL (7.2-11.7); MONO # 0.9 K/uL (0.0-0.8); NEUT # 6.7 K/uL (1.8-7.0); NEUT % 80.4 % (50.0-75.0); NRBC % 0.1 % (0.0-2.0); PLATELET COUNT 209 K/uL (130-400); RBC 3.91 Mil/uL (4.40-5.90); WHITE BLOOD COUNT 8.3 K/uL (4.8-10.8)
[2017-12-13] MEDS ORDERED: Albuterol 0.042% Inhal Sol (1.25 mg/3 mL) UD ONE (12:28)
[2017-12-13 12:29] LABS: INR 1.5; PROTHROMBIN TIME 16.3 SECONDS (9.7-12.2)
[2017-12-13 12:36] LABS: ALB/GLOB RATIO 0.9 (1.0-2.1); ALBUMIN 3.4 g/dL (3.5-5.0); ALT/SGPT 27 U/L (21-72); AST/SGOT 53 U/L (17-59); BLOOD UREA NITROGEN 31 mg/dL (9-20); CALCIUM 8.6 mg/dl (8.6-10.4); GFR AFRICAN-AMERICAN > 60; GFR NON-AFRICAN AMERICAN 54
[2017-12-13 12:40] LABS: BANDS 1 % (0-2); LYMPHOCYTE 10 % (20-40); MONOCYTE 13 % (0-10); NEUTROPHIL 76 % (50-75); PLATELET ESTIMATE NORMAL (NORMAL); TOTAL CELLS COUNTED 100
[2017-12-13 12:41] LABS: OVALOCYTES SLIGHT
[2017-12-13 12:44] LABS: SQUAMOUS EPITHIAL < 1 /hpf (0-5); URINE BACTERIA MANY (<OCC); URINE BILIRUBIN NEGATIVE (NEGATIVE); URINE BLOOD 3+ (NEGATIVE); URINE CLARITY Turbid (Clear); URINE COLOR Amber (YELLOW); URINE GLUCOSE (UA) NORMAL (Normal); URINE LEUKOCYTE ESTERASE 3+ Leu/uL (Negative); URINE PROTEIN 2+ mg/dL (NEGATIVE)
--- NOTE | 2017-12-13 14:07 | RAD ---
PROCEDURE: CHEST RADIOGRAPH, 1 VIEW HISTORY: SOB COMPARISON: Chest radiograph dated 11/27/2017. FINDINGS: LUNGS: Peripheral right upper lobe infiltrate. Right basilar atelectasis. PLEURA: Small right pleural effusion. No appreciable pneumothorax. Elevation of the left hemidiaphragm. CARDIOVASCULAR: Atherosclerotic aortic calcifications. Cardiomediastinal silhouette stably prominent. OSSEOUS STRUCTURES: Unchanged. VISUALIZED UPPER ABDOMEN: Normal. OTHER FINDINGS: None. IMPRESSION: Peripheral right upper lobe infiltrate. Small right pleural effusion.
--- NOTE | 2017-12-13 14:40 | CT ---
PROCEDURE: CT HEAD WITHOUT CONTRAST. HISTORY: r/o bleed COMPARISON: 11/23/2017. TECHNIQUE: Axial computed tomography images were obtained through the head/brain without intravenous contrast. Radiation dose: Total exam DLP = 1421.62 mGy-cm. This CT exam was performed using one or more of the following dose reduction techniques: Automated exposure control, adjustment of the mA and/or kV according to patient size, and/or use of iterative reconstruction technique. FINDINGS: HEMORRHAGE: No intracranial hemorrhage. BRAIN: There are mild chronic microangiopathic changes. 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 There is no mass, mass effect or abnormal extra-axial fluid collection. There is no territorial infarction. VENTRICLES: There is mild age-related global parenchymal volume loss and proportionate enlargement of the ventricles and cortical sulci. CALVARIUM: The skull base and calvarium are normal. PARANASAL SINUSES: There are retention cysts/polyps in both maxillary sinuses. The remaining included paranasal sinusesare clear. MASTOID AIR CELLS: Predominantly clear. OTHER FINDINGS: None. IMPRESSION: No acute intracranial abnormality. No significant interval change.
[2017-12-13] MEDS ORDERED: Cefepime 1 GM in Sodium Chloride 0.9% 50 ML IVPB ONE (14:57)
[2017-12-13] MEDS ORDERED: Enoxaparin 40 mg Syringe ONE (15:27)
[2017-12-13] MEDS: Enoxaparin 30 mg Syringe SC SCH ×2 (15:58→21:57)
[2017-12-13] MEDS ORDERED: Cefepime IV 1 gm in Dextrose 1 GM/50 ML BAG IVPB ONE (16:00)
[2017-12-13] MEDS ORDERED: Home Med 1 UNIT (Acetaminophen [Tylenol] 650 MG) PO SCH (16:30)
[2017-12-13] MEDS ORDERED: Vancomycin 1 gm/NS 200 ml 1 GM/200 ML BAG IVPB ONE (17:00)
[2017-12-13 21:12] LABS: CK-MB 8.97 ng/mL (0.0-3.38); TROPONIN I 2.12 ng/mL (0.00-0.120)
[2017-12-13] MEDS: Magnesium Hydroxide Susp 30 ml UD PO SCH ×2 (21:57→22:02)
[2017-12-13] MEDS: Metoprolol Succinate 12.5 mg XL Tab PO ONE ×2 (21:58→22:03)
--- NOTE | 2017-12-13 22:11 | CP.PCM.CON ---
History of Present Illness - History of Present Illness History of Present Illness: CC: Dyspnea, Cough and chest pain 72yo male with history of asthma, brought to ER from his [facility] for evaluation after patient was found unresponsive in the bathroom. Patient reports that he slipped and fell and was unable to get up. He denies any head injury, loss of consciousness, chest pain, cough or fever. Patient states he does have shortness of breath. Of note, patient is able to ambulate with a walker and occasionally uses a wheelchair. Chief Complaint (Nursing): Shortness Of Breath History Per: Patient, EMS History/Exam Limitations: no limitations Associated Symptoms: denies: Fever, Chills, Chest Pain Past Medical History Reviewed: Historical Data, Nursing Documentation, Vital Signs Vital Signs: Last Vital Signs Temp 97.7 F 12/13/17 10:38 Pulse 113 H 12/13/17 15:59 Resp 20 12/13/17 15:59 BP 100/62 12/13/17 15:59 Pulse Ox 93 L 12/13/17 15:59 - Medical History PMH: Anxiety, Asthma, Benign Prostatic Hyperplasia (bladder problem), Bipolar Disorder, CHF, COPD, Depression, HTN, Hypercholesterolemia, Chronic Kidney Disease (renal insufficiency), Schizophrenia Denies: Diabetes, Hepatitis, Sexually Transmitted Disease Surgical History: Tonsillectomy - [facility] Procedures EXCIS DEBRIDE OF WOUND, INFECT, OR BURN (08/17/14) OCCUPATIONAL THERAPY (08/28/14) PHYSICAL THERAPY NEC (08/28/14) Family History: States: No Known Family Hx, Unknown Family Hx - Social History Hx Tobacco Use: No Hx Alcohol Use: No Hx Substance Use: No - Immunization History Hx Tetanus Toxoid Vaccination: No Hx Influenza Vaccination: No Hx Pneumococcal Vaccination: No Review Of Systems Except As Marked, All Systems Reviewed And Found Negative. Constitutional: Negative for: Fever, Chills Cardiovascular: Negative for: Chest Pain Respiratory: Positive for: Shortness of Breath Neurological: Negative for: Weakness, Headache Physical Exam - Physical Exam Appears: Non-toxic, No Acute Distress Skin: Normal Color Head: Atraumatic, Normacephalic Eye(s): bilateral: Normal Inspection, PERRL, EOMI Oral Mucosa: Dry, Other (food particles noted in mouth) Neck: Normal ROM, Supple Chest: Symmetrical Cardiovascular: Rhythm Regular Respiratory: Normal Breath Sounds, No Rales, No Rhonchi, No Wheezing Extremity: Normal ROM, No Pedal Edema Neurological/Psych: Oriented x3, Normal Speech, Normal Cognition, Normal Motor, Normal Sensation Past Patient History - Infectious Disease Hx of Infectious Diseases: None - Tetanus Immunizations Tetanus Immunization: Unknown - Past Medical History & Family History Past Medical History?: Yes - Past Social History Smoking Status: Unknown If Ever Smoked - CARDIAC Hx Congestive Heart Failure: Yes Hx Hypercholesterolemia: Yes Hx Hypertension: Yes - PULMONARY Hx Asthma: Yes Hx Chronic Obstructive Pulmonary Disease (COPD): Yes - HEENT Hx HEENT Problems: Yes Hx Cataracts: Yes - RENAL Hx Chronic Kidney Disease: Yes (renal insufficiency) - INTEGUMENTARY Hx Dermatological Problems: No - GASTROINTESTINAL Hx Gastrointestinal Disorders: No - GENITOURINARY/GYNECOLOGICAL Hx Sexually Transmitted Disorders: No - PSYCHIATRIC Hx Anxiety: Yes Hx Bipolar Disorder: Yes Hx Depression: Yes Hx Schizophrenia: Yes Hx Substance Use: No - SURGICAL HISTORY Hx Tonsillectomy: Yes - ANESTHESIA Hx Anesthesia: Yes Hx Anesthesia Reactions: No Hx Malignant Hyperthermia: No Meds Allergies/Adverse Reactions: Allergies Allergy/AdvReac Type Severity Reaction Status Date / Time No Known Allergies Allergy Verified 12/13/17 10:48 - Medications Medications: Current Medications Acetaminophen (Tylenol 325mg Tab) 650 mg PO Q4H PRN PRN Reason: Fever >100.4 F Albuterol/Ipratropium (Duoneb 3 Mg/0.5 Mg (3 Ml) Ud) 3 ml INH RQ6 [facility] Aspirin (Ecotrin) 81 mg PO DAILY [facility] Enoxaparin Sodium (Lovenox) 30 mg SC Q12 [facility] Last Admin: 12/13/17 21:57 Dose: 30 mg Finasteride (Proscar) 5 mg PO DAILY [facility] Azithromycin 500 mg/ Sodium (Chloride) 250 mls @ 250 mls/hr IVPB Q24H [facility] PRN Reason: Protocol Ceftriaxone Sodium 1 gm/ (Sodium Chloride) 100 mls @ 100 mls/hr IVPB DAILY [facility] PRN Reason: Protocol Losartan Potassium (Cozaar) 25 mg PO DAILY [facility] Magnesium Hydroxide (Milk Of Magnesia) 30 ml PO HS [facility] Last Admin: 12/13/17 22:02 Dose: Not Given Metoprolol Succinate (Toprol Xl) 12.5 mg PO DAILY [facility] Tamsulosin HCl (Flomax) 0.4 mg PO DAILY [facility] Valproate Sodium (Depakene Cap) 250 mg PO BID [facility] Last Admin: 12/13/17 19:14 Dose: 250 mg Results - Vital Signs Recent Vital Signs: Last Vital Signs Temp 98.0 F 12/13/17 20:29 Pulse 105 H 12/13/17 20:29 Resp 16 12/13/17 20:29 BP 115/69 12/13/17 20:29 Pulse Ox 100 12/13/17 20:29 - Labs Result Diagrams: 12/13/17 12:18 12/13/17 12:18 Labs: Laboratory Results - last 24 hr 12/13/17 12/13/17 12/13/17 12:18 12:18 12:18 WBC 8.3 RBC 3.91 L Hgb 11.5 L Hct 34.1 L MCV 87.2 MCH 29.4 MCHC 33.7 RDW 14.0 Plt Count 209 MPV 10.4 Neut % (Auto) 80.4 H Lymph % (Auto) 7.6 L Howard % (Auto) 11.0 H Eos % (Auto) 0.4 Baso % (Auto) 0.6 Neut # (Auto) 6.7 Lymph # (Auto) 0.6 L [place] # (Auto) 0.9 H Eos # (Auto) 0.0 Baso # (Auto) 0.1 Neutrophils % (Manual) 76 H Band Neutrophils % 1 Lymphocytes % (Manual) 10 L Monocytes % (Manual) 13 H Platelet Estimate Normal Ovalocytes Slight PT 16.3 H INR 1.5 APTT 32 Sodium 142 Potassium 4.8 Chloride 108 H Carbon Dioxide 27 Anion Gap 12 BUN 31 H Creatinine 1.3 Est GFR ( Amer) > 60 Est GFR (Non-Af Amer) 54 POC Glucose (mg/dL) Random Glucose 95 Calcium 8.6 Total Bilirubin 2.0 H AST 53 ALT 27 Alkaline Phosphatase 58 Total Creatine Kinase CK-MB (Mass) 8.20 H Troponin I 0.8100 H* Total Protein 7.5 Albumin 3.4 L D Globulin 4.0 H Albumin/Globulin Ratio 0.9 L Urine Color Urine Clarity Urine pH Ur Specific [place] Urine Protein Urine Glucose (UA) Urine Ketones Urine Blood Urine Nitrate Urine Bilirubin Urine Urobilinogen Ur Leukocyte Esterase Urine WBC (Auto) Urine RBC (Auto) Ur Squamous Epith Cells Urine Bacteria 06/12/18 06/12/18 06/12/18 12:35 20:24 21:23 WBC RBC Hgb Hct MCV MCH MCHC RDW Plt Count MPV Neut % (Auto) Lymph % (Auto) Howard % (Auto) Eos % (Auto) Baso % (Auto) Neut # (Auto) Lymph # (Auto) Howard # (Auto) Eos # (Auto) Baso # (Auto) Neutrophils % (Manual) Band Neutrophils % Lymphocytes % (Manual) Monocytes % (Manual) Platelet Estimate Ovalocytes PT INR APTT Sodium Potassium Chloride Carbon Dioxide Anion Gap BUN Creatinine Est GFR ( Amer) Est GFR (Non-Af Amer) POC Glucose (mg/dL) 77 Random Glucose Calcium Total Bilirubin AST ALT Alkaline Phosphatase Total Creatine Kinase 193 H CK-MB (Mass) 8.97 H Troponin I 2.1200 H* Total Protein Albumin Globulin Albumin/Globulin Ratio Urine Color [place] Urine Clarity Turbid Urine pH 5.0 Ur Specific [place] 1.021 Urine Protein 2+ H Urine Glucose (UA) Normal Urine Ketones 1+ H Urine Blood 3+ H Urine Nitrate Positive H Urine Bilirubin Negative Urine Urobilinogen 4.0 Ur Leukocyte Esterase 3+ H Urine WBC (Auto) 172 H Urine RBC (Auto) 27 H Ur Squamous Epith Cells < 1 Urine Bacteria Many H Assessment & Plan - Assessment and Plan (Free Text) Assessment: (1) Elevated troponin Assessment and Plan: patient's elevated toponin Cardiac cath after TB ruled out Status: Acute (2) Pneumonia r/o TB Assessment and Plan: conitnue antibiotics Status: Acute
[2017-12-14] MEDS: Albuterol-Ipratrop 3 mg / 0.5 (3 ml) UD INH SCH ×4 (01:08→20:18)
[2017-12-14] MEDS ORDERED: Enoxaparin 60 mg Syringe SC SCH (01:11)
--- NOTE | 2017-12-14 08:40 | CP.PCM.HP ---
History of Present Illness - History of Present Illness History of Present Illness: CC: AMS, Dyspnea, Cough and chest pain HPI: 72yo white male who was in [facility] before with septecemia following cystscopy ,with history of asthma, [facility] from his [facility] for evaluation after patient was found unresponsive in the bathroom. Patient reports that he slipped and fell and was unable to get up. He denies any head injury, loss of consciousness, chest pain, cough or fever. Patient states he does have shortness of breath. Of note, patient is able to ambulate with a walker and occasionally uses a wheelchair. Pt is in ER, foleys in place, followed up by urology, pt is right now on BIPAP and oxygen, coughing and wheezing, he is anxious and depressed. Present on Admission - Present on Admission Any Indicators Present on Admission: Yes Review of Systems - Review of Systems Systems not reviewed;Unavailable: Acuity of Condition - Constitutional Constitutional: Fatigue, Fever, Lethargy, Malaise - EENT Eyes: absent: As Per HPI, Blind Spots, Blurred Vision, Change in Vision, Decreased Night Vision, Diplopia, Discharge, Dry Eye, Exophthalmos, Floaters, Irritation, Itchy Eyes, Loss of Peripheral Vision, Pain, Photophobia, Requires Corrective Lenses, Sees Flashes, Spots in Vision, Tunnel Vision, Other Visual Disturbances, Loss of Vision, Other Ears: absent: As Per HPI, Decreased Hearing, Ear Discharge, Ear Pain, Tinnitus, Abnormal Hearing, Disequilibrium, Dizziness, Other - Cardiovascular Cardiovascular: Dyspnea. absent: As Per HPI, Acrocyanosis, Chest Pain, Chest Pain at Rest, Chest Pain with Activity, Claudication, Diaphoresis, Dyspnea on Exertion, Edema, Irregular Heart Rhythm, Pain Radiating to Arm/Neck/Jaw, Leg Edema, Leg Ulcers, Lightheadedness, Orthopnea, Palpitations, Paroxysmal Nocturnal Dyspnea, Pedal Edema, Radiating Pain, Rapid Heart Rate, Slow Heart Rate, Syncope, Other - Respiratory Respiratory: Cough, Dyspnea - Gastrointestinal Gastrointestinal: absent: As Per HPI, Abdominal Pain, Belching, Bloating, Change in Bowel Habits, Change in Stool Character, Coffee Ground Emesis, Constipation, Cramping, Diarrhea, Dyspepsia, Dysphagia, Early Satiety, Excessive Flatus, Fecal Incontinence, Heartburn, Hematemesis, Hematochezia, Loose Stools, Melena, Nausea, Odynophagia, Temesmus, Vomiting, Other - Genitourinary Genitourinary: Voiding Freq/Small Amts - Musculoskeletal Musculoskeletal: Muscle Weakness, Stiffness - Integumentary Integumentary: absent: As Per HPI, Acne, Alopecia, Bleeding Lesions, Change in Hair, Change in Nails, Change in Pigmentation, Changing Lesions, Dry Skin, Erythema, Furuncle, Hirsutism, Lesions, New Lesions, Non-Healing Lesions, Photosensitivity, Pruritus, Rash, Skin Pain, Skin Ulcer, Sores, Striae, Swelling , Unusual Bruising, Wounds, Jaundice, Other Past Patient History - Infectious Disease Hx of Infectious Diseases: None - Tetanus Immunizations Tetanus Immunization: Unknown - Past Medical History & Family History Past Medical History?: Yes - Past Social History Smoking Status: Never Smoked - CARDIAC Hx Cardiac Disorders: Yes Hx Congestive Heart Failure: Yes Hx Hypercholesterolemia: Yes Hx Hypertension: Yes - PULMONARY Hx Respiratory Disorders: Yes Hx Asthma: Yes Hx Chronic Obstructive Pulmonary Disease (COPD): Yes - HEENT Hx HEENT Problems: Yes Hx Cataracts: Yes - RENAL Hx Chronic Kidney Disease: Yes (renal insufficiency) - INTEGUMENTARY Hx Dermatological Problems: No - MUSCULOSKELETAL/RHEUMATOLOGICAL Hx Falls: Yes (s/p fall at [facility]) - GASTROINTESTINAL Hx Gastrointestinal Disorders: No - GENITOURINARY/GYNECOLOGICAL Hx Genitourinary Disorders: No Hx Sexually Transmitted Disorders: No - PSYCHIATRIC Hx Psychophysiologic Disorder: Yes Hx Anxiety: Yes Hx Bipolar Disorder: Yes Hx Depression: Yes Hx Schizophrenia: Yes Hx Substance Use: No - SURGICAL HISTORY Hx Tonsillectomy: Yes - ANESTHESIA Hx Anesthesia: Yes Hx Anesthesia Reactions: No Hx Malignant Hyperthermia: No Meds Allergies/Adverse Reactions: Allergies Allergy/AdvReac Type Severity Reaction Status Date / Time No Known Allergies Allergy Verified 12/13/17 10:48 Physical Exam - Constitutional Appears: No Acute Distress, Chronically Ill - Head Exam Head Exam: ATRAUMATIC, NORMAL INSPECTION, NORMOCEPHALIC - Eye Exam Eye Exam: EOMI, Normal appearance, PERRL Pupil Exam: NORMAL ACCOMODATION, PERRL - ENT Exam ENT Exam: Mucous Membranes Dry - Neck Exam Neck exam: Positive for: Normal Inspection - Respiratory Exam Respiratory Exam: Decreased Breath Sounds, Rhonchi, Wheezes, Respiratory Distress Additional comments: using accessory muscles - Cardiovascular Exam Cardiovascular Exam: REGULAR RHYTHM, +S1, +S2 - GI/Abdominal Exam GI & Abdominal Exam: Normal Bowel Sounds, Soft. absent: Tenderness - Rectal Exam Rectal Exam: Deferred - Neurological Exam Neurological exam: Altered - Psychiatric Exam Psychiatric exam: Anxious, Depressed Results - Vital Signs Recent Vital Signs: Last Vital Signs Temp 98.2 F 12/14/17 04:19 Pulse 88 12/14/17 04:19 Resp 20 12/14/17 04:19 BP 111/66 12/14/17 04:19 Pulse Ox 96 12/14/17 04:19 - Labs Result Diagrams: 12/13/17 12:18 12/13/17 12:18 Labs: Laboratory Results - last 24 hr 12/13/17 12/13/17 12/13/17 12:18 12:18 12:18 WBC 8.3 RBC 3.91 L Hgb 11.5 L Hct 34.1 L MCV 87.2 MCH 29.4 MCHC 33.7 RDW 14.0 Plt Count 209 MPV 10.4 Neut % (Auto) 80.4 H Lymph % (Auto) 7.6 L [place] % (Auto) 11.0 H Eos % (Auto) 0.4 Baso % (Auto) 0.6 Neut # (Auto) 6.7 Lymph # (Auto) 0.6 L [place] # (Auto) 0.9 H Eos # (Auto) 0.0 Baso # (Auto) 0.1 Neutrophils % (Manual) 76 H Band Neutrophils % 1 Lymphocytes % (Manual) 10 L Monocytes % (Manual) 13 H Platelet Estimate Normal Ovalocytes Slight PT 16.3 H INR 1.5 APTT 32 Sodium 142 Potassium 4.8 Chloride 108 H Carbon Dioxide 27 Anion Gap 12 BUN 31 H Creatinine 1.3 Est GFR ( Amer) > 60 Est GFR (Non-Af Amer) 54 POC Glucose (mg/dL) Random Glucose 95 Calcium 8.6 Total Bilirubin 2.0 H AST 53 ALT 27 Alkaline Phosphatase 58 Total Creatine Kinase CK-MB (Mass) 8.20 H Troponin I 0.8100 H* Total Protein 7.5 Albumin 3.4 L D Globulin 4.0 H Albumin/Globulin Ratio 0.9 L Urine Color Urine Clarity Urine pH Ur Specific [place] Urine Protein Urine Glucose (UA) Urine Ketones Urine Blood Urine Nitrate Urine Bilirubin Urine Urobilinogen Ur Leukocyte Esterase Urine WBC (Auto) Urine RBC (Auto) Ur Squamous Epith Cells Urine Bacteria 12/13/17 12/13/17 12/13/17 12:35 20:24 21:23 WBC RBC Hgb Hct MCV MCH MCHC RDW Plt Count MPV Neut % (Auto) Lymph % (Auto) [place] % (Auto) Eos % (Auto) Baso % (Auto) Neut # (Auto) Lymph # (Auto) [place] # (Auto) Eos # (Auto) Baso # (Auto) Neutrophils % (Manual) Band Neutrophils % Lymphocytes % (Manual) Monocytes % (Manual) Platelet Estimate Ovalocytes PT INR APTT Sodium Potassium Chloride Carbon Dioxide Anion Gap BUN Creatinine Est GFR ( Amer) Est GFR (Non-Af Amer) POC Glucose (mg/dL) 77 Random Glucose Calcium Total Bilirubin AST ALT Alkaline Phosphatase Total Creatine Kinase 193 H CK-MB (Mass) 8.97 H Troponin I 2.1200 H* Total Protein Albumin Globulin Albumin/Globulin Ratio Urine Color [place] Urine Clarity Turbid Urine pH 5.0 Ur Specific [place] 1.021 Urine Protein 2+ H Urine Glucose (UA) Normal Urine Ketones 1+ H Urine Blood 3+ H Urine Nitrate Positive H Urine Bilirubin Negative Urine Urobilinogen 4.0 Ur Leukocyte Esterase 3+ H Urine WBC (Auto) 172 H Urine RBC (Auto) 27 H Ur Squamous Epith Cells < 1 Urine Bacteria Many H Assessment & Plan (1) Non-STEMI (non-ST elevated myocardial infarction) Assessment and Plan: cardiac enzymes ecg monitor pt oxygen BIPAP Status: Acute (2) BPH (benign prostatic hyperplasia) Assessment and Plan: foleys in place followed by Status: Acute (3) Hypertension Status: Acute (4) S/P cystoscopy Status: Acute (5) Tracheobronchitis Assessment and Plan: Rule out pneumonia Status: Acute
--- NOTE | 2017-12-14 08:50 | CP.PCM.PN ---
Subjective - Date & Time of Evaluation Date of Evaluation: 12/14/17 Time of Evaluation: 19:00 - Subjective Subjective: Pt seen and examined, is improved Objective - Vital Signs/Intake and Output Vital Signs (last 24 hours): Temp Pulse Resp BP Pulse Ox 98.0 F 86 20 119/66 98 12/14/17 07:30 12/14/17 07:30 12/14/17 07:30 12/14/17 07:30 12/14/17 07:30 Intake and Output: 12/14/17 12/14/17 06:59 18:59 Intake Total 110 Output Total 500 Balance -390 - Medications Medications: Current Medications Acetaminophen (Tylenol 325mg Tab) 650 mg PO Q4H PRN PRN Reason: Fever >100.4 F Albuterol/Ipratropium (Duoneb 3 Mg/0.5 Mg (3 Ml) Ud) 3 ml INH RQ6 [facility] Last Admin: 12/14/17 07:59 Dose: 3 ml Aspirin (Ecotrin) 81 mg PO DAILY [facility] Clopidogrel Bisulfate (Plavix) 75 mg PO DAILY [facility] Enoxaparin Sodium (Lovenox) 50 mg SC Q12 [facility] Finasteride (Proscar) 5 mg PO DAILY [facility] Azithromycin 500 mg/ Sodium (Chloride) 250 mls @ 250 mls/hr IVPB Q24H [facility] PRN Reason: Protocol Ceftriaxone Sodium 1 gm/ (Sodium Chloride) 100 mls @ 100 mls/hr IVPB DAILY [facility] PRN Reason: Protocol Losartan Potassium (Cozaar) 25 mg PO DAILY [facility] Magnesium Hydroxide (Milk Of Magnesia) 30 ml PO HS [facility] Last Admin: 12/13/17 22:02 Dose: Not Given Metoprolol Succinate (Toprol Xl) 12.5 mg PO DAILY [facility] Tamsulosin HCl (Flomax) 0.4 mg PO DAILY [facility] Valproate Sodium (Depakene Cap) 250 mg PO BID [facility] Last Admin: 12/13/17 19:14 Dose: 250 mg - Labs Labs: 12/13/17 12:18 12/13/17 12:18 PT 16.3 SECONDS (9.7-12.2) H 12/13/17 12:18 INR 1.5 12/13/17 12:18 APTT 32 SECONDS (21-34) 12/13/17 12:18 Assessment and Plan (1) Non-STEMI (non-ST elevated myocardial infarction) Status: Acute (2) BPH (benign prostatic hyperplasia) Status: Acute (3) Hypertension Status: Acute (4) S/P cystoscopy Status: Acute (5) Tracheobronchitis Status: Acute
[2017-12-14] MEDS: Metoprolol Succinate 12.5 mg XL Tab PO SCH (11:18)
[2017-12-14] MEDS: Azithromycin 500 MG in Sodium Chloride 0.9% 250 ML IVPB SCH (13:00)
--- NOTE | 2017-12-14 13:11 | CP.PCM.PN ---
Subjective - Date & Time of Evaluation Date of Evaluation: 12/14/17 Time of Evaluation: 13:00 - Subjective Subjective: Patient seen today , awake, alert, c/o sob and pain in mid sternal area , non radiating , and coughing worsen the pain , and non productive cough , and nauseous, denies any diaphoresis , palpitations . Objective - Vital Signs/Intake and Output Vital Signs (last 24 hours): Temp Pulse Resp BP Pulse Ox 98.0 F 77 20 115/63 98 12/14/17 07:30 12/14/17 12:00 12/14/17 07:30 12/14/17 11:15 12/14/17 07:30 Intake and Output: 12/14/17 12/14/17 06:59 18:59 Intake Total 110 Output Total 500 Balance -390 - Medications Medications: Current Medications Acetaminophen (Tylenol 325mg Tab) 650 mg PO Q4H PRN PRN Reason: Fever >100.4 F Albuterol/Ipratropium (Duoneb 3 Mg/0.5 Mg (3 Ml) Ud) 3 ml INH RQ6 [facility] Last Admin: 12/14/17 07:59 Dose: 3 ml Aspirin (Ecotrin) 81 mg PO DAILY [facility] Last Admin: 12/14/17 11:18 Dose: 81 mg Clopidogrel Bisulfate (Plavix) 75 mg PO DAILY [facility] Last Admin: 12/14/17 11:18 Dose: 75 mg Enoxaparin Sodium (Lovenox) 50 mg SC Q12 [facility] Last Admin: 12/14/17 11:18 Dose: 50 mg Finasteride (Proscar) 5 mg PO DAILY [facility] Last Admin: 12/14/17 11:17 Dose: 5 mg Azithromycin 500 mg/ Sodium (Chloride) 250 mls @ 250 mls/hr IVPB Q24H [facility] PRN Reason: Protocol Ceftriaxone Sodium 1 gm/ (Sodium Chloride) 100 mls @ 100 mls/hr IVPB DAILY [facility] PRN Reason: Protocol Last Admin: 12/14/17 11:19 Dose: 100 mls/hr Heparin Sodium/Sodium Chloride (Heparin 01112 Units/250ml 1/2 Normal Saline) 25 ,000 units in 250 mls @ 9.798 mls/hr IV .Q24H PRN; Protocol; 12 UNITS/KG/HR PRN Reason: PROTOCOL Losartan Potassium (Cozaar) 25 mg PO DAILY [facility] Last Admin: 12/14/17 11:17 Dose: 25 mg Magnesium Hydroxide (Milk Of Magnesia) 30 ml PO HS [facility] Last Admin: 12/13/17 22:02 Dose: Not Given Metoprolol Succinate (Toprol Xl) 12.5 mg PO DAILY [facility] Last Admin: 12/14/17 11:18 Dose: 12.5 mg Tamsulosin HCl (Flomax) 0.4 mg PO DAILY [facility] Last Admin: 12/14/17 11:18 Dose: 0.4 mg Valproate Sodium (Depakene Cap) 250 mg PO BID [facility] Last Admin: 12/14/17 11:19 Dose: 250 mg - Labs Labs: 12/13/17 12:18 12/13/17 12:18 PT 16.3 SECONDS (9.7-12.2) H 12/13/17 12:18 INR 1.5 12/13/17 12:18 APTT 32 SECONDS (21-34) 12/13/17 12:18 - Constitutional Appears: Non-toxic, No Acute Distress - Respiratory Exam Respiratory Exam: Chest Wall Tenderness, Decreased Breath Sounds, Rhonchi, NORMAL BREATHING PATTERN - Cardiovascular Exam Cardiovascular Exam: REGULAR RHYTHM - Neurological Exam Neurological Exam: Alert, Awake Assessment and Plan - Assessment and Plan (Free Text) Assessment: A/P 72 yr old male with ppmhx of Benign Prostatic Hyperplasia , Bipolar Disorder, CHF, COPD, Depression, HTN, Hypercholesterolemia, presented to ER [place] s/p unwitnessed fall and admitted with NSTEMI, Pneumonia (upper lobe), Syncope, r /o TB troponin- trending up -0.8100- 2.1200 3rd troponin ordered and came back - 8.3100 heparin drip started D/W Dr. Ramirez , recommends ICU eval and possible cath in am D/W Dr. Perez and Dr. Perez evaluated patient and accepted patient to ICU admission Patient transferred to ICU for further management The above plan discussed with Dr. Hunter and agrees with plan
[2017-12-14] MEDS ORDERED: Heparin25000 units/250ml 1/2NS 25,000 UNITS/250 ML BAG IV PRN (13:30)
--- NOTE | 2017-12-14 14:14 | CP.PCM.CON ---
History of Present Illness - History of Present Illness History of Present Illness: Critical Care Consult Note 72 year old male, with PMHx of Anxiety, Asthma, BPH, Bipolar Disorder, CHF, COPD , Depression, HTN, hypercholesterolemia, CKD, and Schizophrenia, presented to the ED on 12/13 after being found unresponsive following an unwitnessed fall. Patient comes from a [facility]. In ED, patient was found to have peripheral right upper lobe infiltrate and right small pleural effusion on CXR. Patient complains of productive cough but is unable to comment on color of sputum. Patient states he has had shortness of breath for twenty years. Patient is on O2 at home. Patient was previously hospitalized in November 2017 for sepsis following cystoscopy. Admitted to the ICU for STEMI with troponins high of 8. Patient denies chest pain, fevers, chills, nausea, vomiting, or abdominal pain. PMHx: Anxiety, Asthma, BPH, Bipolar Disorder, CHF, COPD, Depression, HTN, hypercholesterolemia, CKD, and Schizophrenia PSHx: Tonsillectomy Allergies: NKDA Past Patient History - Infectious Disease Hx of Infectious Diseases: None - Tetanus Immunizations Tetanus Immunization: Unknown - Past Medical History & Family History Past Medical History?: Yes - Past Social History Smoking Status: Never Smoked - CARDIAC Hx Cardiac Disorders: Yes Hx Congestive Heart Failure: Yes Hx Hypercholesterolemia: Yes Hx Hypertension: Yes - PULMONARY Hx Respiratory Disorders: Yes Hx Asthma: Yes Hx Chronic Obstructive Pulmonary Disease (COPD): Yes - HEENT Hx HEENT Problems: Yes Hx Cataracts: Yes - RENAL Hx Chronic Kidney Disease: Yes (renal insufficiency) - INTEGUMENTARY Hx Dermatological Problems: No - MUSCULOSKELETAL/RHEUMATOLOGICAL Hx Falls: Yes (s/p fall at prison) - GASTROINTESTINAL Hx Gastrointestinal Disorders: No - GENITOURINARY/GYNECOLOGICAL Hx Genitourinary Disorders: No Hx Sexually Transmitted Disorders: No - PSYCHIATRIC Hx Psychophysiologic Disorder: Yes Hx Anxiety: Yes Hx Bipolar Disorder: Yes Hx Depression: Yes Hx Schizophrenia: Yes Hx Substance Use: No - SURGICAL HISTORY Hx Tonsillectomy: Yes - ANESTHESIA Hx Anesthesia: Yes Hx Anesthesia Reactions: No Hx Malignant Hyperthermia: No Meds Allergies/Adverse Reactions: Allergies Allergy/AdvReac Type Severity Reaction Status Date / Time No Known Allergies Allergy Verified 12/13/17 10:48 - Medications Medications: Current Medications Acetaminophen (Tylenol 325mg Tab) 650 mg PO Q4H PRN PRN Reason: Fever >100.4 F Albuterol/Ipratropium (Duoneb 3 Mg/0.5 Mg (3 Ml) Ud) 3 ml INH RQ6 [facility] Last Admin: 12/14/17 13:45 Dose: 3 ml Aspirin (Ecotrin) 81 mg PO DAILY [facility] Last Admin: 12/14/17 11:18 Dose: 81 mg Clopidogrel Bisulfate (Plavix) 75 mg PO DAILY [facility] Last Admin: 12/14/17 11:18 Dose: 75 mg Finasteride (Proscar) 5 mg PO DAILY [facility] Last Admin: 12/14/17 11:17 Dose: 5 mg Azithromycin 500 mg/ Sodium (Chloride) 250 mls @ 250 mls/hr IVPB Q24H [facility] PRN Reason: Protocol Last Admin: 12/14/17 13:00 Dose: 250 mls/hr Ceftriaxone Sodium 1 gm/ (Sodium Chloride) 100 mls @ 100 mls/hr IVPB DAILY [facility] PRN Reason: Protocol Last Admin: 12/14/17 11:19 Dose: 100 mls/hr Heparin Sodium/Sodium Chloride (Heparin 06782 Units/250ml 1/2 Normal Saline) 25 ,000 units in 250 mls @ 9.798 mls/hr IV .Q24H PRN; Protocol; 12 UNITS/KG/HR PRN Reason: PROTOCOL Last Admin: 12/14/17 13:48 Dose: 12 units/kg/hr, 9.798 mls/hr Losartan Potassium (Cozaar) 25 mg PO DAILY [facility] Last Admin: 12/14/17 11:17 Dose: 25 mg Magnesium Hydroxide (Milk Of Magnesia) 30 ml PO HS [facility] Last Admin: 12/13/17 22:02 Dose: Not Given Metoprolol Succinate (Toprol Xl) 12.5 mg PO DAILY [facility] Last Admin: 12/14/17 11:18 Dose: 12.5 mg Tamsulosin HCl (Flomax) 0.4 mg PO DAILY [facility] Last Admin: 12/14/17 11:18 Dose: 0.4 mg Valproate Sodium (Depakene Cap) 250 mg PO BID [facility] Last Admin: 12/14/17 11:19 Dose: 250 mg Physical Exam - Constitutional Appears: Chronically Ill - Head Exam Head Exam: NORMAL INSPECTION, NORMOCEPHALIC - Eye Exam Eye Exam: EOMI, Normal appearance, PERRL Pupil Exam: NORMAL ACCOMODATION - ENT Exam ENT Exam: Mucous Membranes Dry - Respiratory Exam Respiratory Exam: Decreased Breath Sounds - Cardiovascular Exam Cardiovascular Exam: REGULAR RHYTHM - GI/Abdominal Exam GI & Abdominal Exam: Normal Bowel Sounds, Soft. absent: Distended, Tenderness - Rectal Exam Rectal Exam: Deferred - Extremities Exam Extremities exam: Positive for: normal inspection, pedal pulses present. Negative for: pedal edema, tenderness - Back Exam Back exam: NORMAL INSPECTION - Neurological Exam Neurological exam: Alert, CN II-XII Intact, Oriented x3 - Psychiatric Exam Psychiatric exam: Normal Affect, Normal Mood - Skin Skin Exam: Dry, Intact, Normal Color, Warm Results - Vital Signs Recent Vital Signs: Last Vital Signs Temp 98.0 F 12/14/17 07:30 Pulse 77 12/14/17 12:00 Resp 20 12/14/17 07:30 BP 115/63 12/14/17 11:15 Pulse Ox 98 12/14/17 07:30 - Labs Result Diagrams: 12/13/17 12:18 12/13/17 12:18 Labs: Laboratory Results - last 24 hr 12/13/17 12/13/17 12/14/17 20:24 21:23 12:17 POC Glucose (mg/dL) 77 Total Creatine Kinase 193 H CK-MB (Mass) 8.97 H Troponin I 2.1200 H* 8.3100 H* Assessment & Plan - Assessment and Plan (Free Text) Assessment: 72 year old male, with PMHx of Anxiety, Asthma, BPH, Bipolar Disorder, CHF, COPD , Depression, HTN, hypercholesterolemia, CKD, and Schizophrenia, presented to the ED on 12/13 after being found unresponsive following an unwitnessed fall. Patient found to have RUL PNA r/o TB, NSTEMI. Plan: Neuro: GCS 15 Cardio: A: NSTEMI Cardiology consulted - Dr. Ramirez - Troponin: 0.81 --> 2.12 --> 8.31 - EKG: No ST changes , q waves or t waves noted - Asa, plavix, Cozaar, Metoprolol, heparin drip A: HF Diastolic Dysfunction LVEF 55% A: HTN - Cozaar, Metoprolol Pulm: A: RUL PNA Pulmonary consulted - Dr. Perez - CXR: Peripheral right upper lobe infiltrate. - CT Chest: - ?? TB --> r/o AFBs x3, Quant, PPD - Azithromycin 500Q24, Rocephin Daily 12/14 A: Asthma A: COPD A: Hypercholesterolemia : A: BPH - Resumed proscar, flomax Psych: A: Schizophrenia - Resumed Depakene Prophylaxis - Pepcid - SCDs, Heparin Drip DW Dr. Perez, Bozena George DO, PGY-1
--- NOTE | 2017-12-14 14:47 | CARD ---
APPROVED REPORT EKG Measurement Heart [id number] <Conclusion> Sinus tachycardia with occasional premature ventricular complexes Possible Left atrial enlargement Nonspecific ST abnormality Abnormal ECG
[2017-12-14] MEDS ORDERED: Albuterol-Ipratrop 3 mg / 0.5 (3 ml) UD INH PRN (14:56)
[2017-12-14] MEDS ORDERED: Tuberculin 5 Units/0.1 ml Inj ID ONE (15:00)
--- NOTE | 2017-12-14 16:46 | CP.PCM.CON ---
History of Present Illness - History of Present Illness History of Present Illness: 72 year old male, with PMHx of Anxiety, Asthma, BPH, Bipolar Disorder, CHF, COPD , Depression, HTN, hypercholesterolemia, CKD, and Schizophrenia, presented to the ED on 12/13 after being found unresponsive following an unwitnessed fall. Patient comes from a [facility]. . In ED, patient was found to have peripheral right upper lobe infiltrate and right small pleural effusion on CXR. Patient complains of productive cough but is unable to comment on color of sputum. Patient states he has had shortness of breath for twenty years. Patient is on O2 at home. Patient was previously hospitalized in November 2017 for sepsis following cystoscopy. Patient denies chest pain, fevers, chills, nausea, vomiting, or abdominal pain. PMHx: Anxiety, Asthma, BPH, Bipolar Disorder, CHF, COPD, Depression, HTN, hypercholesterolemia, CKD, and Schizophrenia PSHx: Tonsillectomy Allergies: NKDA Assessment/Plan: 1. Pneumonia, rule out TB - CXR 12/13: Periperal right upper lobe infiltrate. Small right pleural effusion. - WBC 12/13: 8.3 - On droplet precautions - Continue Axithromycin - Continue Ceftriaxone - Awaiting Tuberculin test - Awaiting AFB Culture 2. NSTEMI - Troponin I 12/14 at 12pm: 8.3100 - ECG 12/14: Normal sinus rhythm - Transferred to ICU 3. COPD - Continue Duoneb - Continue Acetylcysteine Past Patient History - Infectious Disease Hx of Infectious Diseases: None - Tetanus Immunizations Tetanus Immunization: Unknown - Past Medical History & Family History Past Medical History?: Yes - Past Social History Smoking Status: Never Smoked - CARDIAC Hx Cardiac Disorders: Yes Hx Congestive Heart Failure: Yes Hx Hypercholesterolemia: Yes Hx Hypertension: Yes - PULMONARY Hx Respiratory Disorders: Yes Hx Asthma: Yes Hx Chronic Obstructive Pulmonary Disease (COPD): Yes - HEENT Hx HEENT Problems: Yes Hx Cataracts: Yes - RENAL Hx Chronic Kidney Disease: Yes (renal insufficiency) - INTEGUMENTARY Hx Dermatological Problems: No - MUSCULOSKELETAL/RHEUMATOLOGICAL Hx Falls: Yes (s/p fall at [facility]) - GASTROINTESTINAL Hx Gastrointestinal Disorders: No - GENITOURINARY/GYNECOLOGICAL Hx Genitourinary Disorders: No Hx Sexually Transmitted Disorders: No - PSYCHIATRIC Hx Psychophysiologic Disorder: Yes Hx Anxiety: Yes Hx Bipolar Disorder: Yes Hx Depression: Yes Hx Schizophrenia: Yes Hx Substance Use: No - SURGICAL HISTORY Hx Tonsillectomy: Yes - ANESTHESIA Hx Anesthesia: Yes Hx Anesthesia Reactions: No Hx Malignant Hyperthermia: No Meds Allergies/Adverse Reactions: Allergies Allergy/AdvReac Type Severity Reaction Status Date / Time No Known Allergies Allergy Verified 12/13/17 10:48 - Medications Medications: Current Medications Acetaminophen (Tylenol 325mg Tab) 650 mg PO Q4H PRN PRN Reason: Fever >100.4 F Acetylcysteine (Acetylcysteine 20%) 4 ml INH Q6H PRN PRN Reason: Cough and congestion Albuterol/Ipratropium (Duoneb 3 Mg/0.5 Mg (3 Ml) Ud) 3 ml INH RQ6 [facility] Last Admin: 12/14/17 13:45 Dose: 3 ml Albuterol/Ipratropium (Duoneb 3 Mg/0.5 Mg (3 Ml) Ud) 3 ml INH RQ4 PRN PRN Reason: Cough Aspirin (Ecotrin) 81 mg PO DAILY [facility] Last Admin: 12/14/17 11:18 Dose: 81 mg Clopidogrel Bisulfate (Plavix) 75 mg PO DAILY [facility] Last Admin: 12/14/17 11:18 Dose: 75 mg Finasteride (Proscar) 5 mg PO DAILY [facility] Last Admin: 12/14/17 11:17 Dose: 5 mg Azithromycin 500 mg/ Sodium (Chloride) 250 mls @ 250 mls/hr IVPB Q24H [facility] PRN Reason: Protocol Last Admin: 12/14/17 13:00 Dose: 250 mls/hr Ceftriaxone Sodium 1 gm/ (Sodium Chloride) 100 mls @ 100 mls/hr IVPB DAILY [facility] PRN Reason: Protocol Last Admin: 12/14/17 11:19 Dose: 100 mls/hr Heparin Sodium/Sodium Chloride (Heparin 87790 Units/250ml 1/2 Normal Saline) 25 ,000 units in 250 mls @ 9.798 mls/hr IV .Q24H PRN; Protocol; 12 UNITS/KG/HR PRN Reason: PROTOCOL Last Admin: 12/14/17 13:48 Dose: 12 units/kg/hr, 9.798 mls/hr Losartan Potassium (Cozaar) 25 mg PO DAILY [facility] Last Admin: 12/14/17 11:17 Dose: 25 mg Magnesium Hydroxide (Milk Of Magnesia) 30 ml PO HS [facility] Last Admin: 12/13/17 22:02 Dose: Not Given Metoprolol Succinate (Toprol Xl) 12.5 mg PO DAILY [facility] Last Admin: 12/14/17 11:18 Dose: 12.5 mg Tamsulosin HCl (Flomax) 0.4 mg PO DAILY [facility] Last Admin: 12/14/17 11:18 Dose: 0.4 mg Valproate Sodium (Depakene Cap) 250 mg PO BID [facility] Last Admin: 12/14/17 11:19 Dose: 250 mg Vitamin A (Vitamin A & D Oint Ud Foilpak) 4 ea TOP BID [facility] Results - Vital Signs Recent Vital Signs: Last Vital Signs Temp 97.6 F 12/14/17 16:07 Pulse 87 12/14/17 13:45 Resp 20 12/14/17 13:45 BP 110/59 L 12/14/17 13:45 Pulse Ox 100 12/14/17 16:07 - Labs Result Diagrams: 12/13/17 12:18 12/13/17 12:18 Labs: Laboratory Results - last 24 hr 12/13/17 12/13/17 12/14/17 20:24 21:23 12:17 POC Glucose (mg/dL) 77 Total Creatine Kinase 193 H CK-MB (Mass) 8.97 H Troponin I 2.1200 H* 8.3100 H*
[2017-12-14] MEDS: Vitamins A & D Oint UD Foilpak TOP SCH (18:24)
[2017-12-14] MEDS: Saccharomyces Boulardi 250 mg Cap PO SCH (18:28)
--- NOTE | 2017-12-14 21:24 | CP.PCM.PN ---
Subjective - Date & Time of Evaluation Date of Evaluation: 12/14/17 Time of Evaluation: 15:30 - Subjective Subjective: Patient transferredc to ICU for chest pain and worsening Trops (Non STMI) Physical Exam - Constitutional Appears: Chronically Ill - Head Exam Head Exam: NORMAL INSPECTION, NORMOCEPHALIC - Eye Exam Eye Exam: EOMI, Normal appearance, PERRL Pupil Exam: NORMAL ACCOMODATION - ENT Exam ENT Exam: Mucous Membranes Dry - Respiratory Exam Respiratory Exam: Decreased Breath Sounds - Cardiovascular Exam Cardiovascular Exam: REGULAR RHYTHM - GI/Abdominal Exam GI & Abdominal Exam: Normal Bowel Sounds, Soft. absent: Distended, Tenderness - Rectal Exam Rectal Exam: Deferred - Extremities Exam Extremities exam: Positive for: normal inspection, pedal pulses present. Negative for: pedal edema, tenderness - Back Exam Back exam: NORMAL INSPECTION - Neurological Exam Neurological exam: Alert, CN II-XII Intact, Oriented x3 - Psychiatric Exam Psychiatric exam: Normal Affect, Normal Mood - Skin Skin Exam: Dry, Intact, Normal Color, Warm Objective - Vital Signs/Intake and Output Vital Signs (last 24 hours): Temp Pulse Resp BP Pulse Ox 97.6 F 87 20 110/59 L 100 12/14/17 16:07 12/14/17 13:45 12/14/17 13:45 12/14/17 13:45 12/14/17 16:07 Intake and Output: 12/14/17 12/15/17 18:59 06:59 Intake Total 948.8 9.7 Output Total 465 20 Balance 483.8 -10.3 - Medications Medications: Current Medications Acetaminophen (Tylenol 325mg Tab) 650 mg PO Q4H PRN PRN Reason: Fever >100.4 F Acetylcysteine (Acetylcysteine 20%) 4 ml INH Q6H PRN PRN Reason: Cough and congestion Albuterol/Ipratropium (Duoneb 3 Mg/0.5 Mg (3 Ml) Ud) 3 ml INH RQ6 [facility] Last Admin: 12/14/17 20:18 Dose: 3 ml Albuterol/Ipratropium (Duoneb 3 Mg/0.5 Mg (3 Ml) Ud) 3 ml INH RQ4 PRN PRN Reason: Cough Aspirin (Ecotrin) 81 mg PO DAILY [facility] Last Admin: 12/14/17 11:18 Dose: 81 mg Clopidogrel Bisulfate (Plavix) 75 mg PO DAILY [facility] Last Admin: 12/14/17 11:18 Dose: 75 mg Famotidine (Pepcid) 20 mg PO DAILY [facility] Finasteride (Proscar) 5 mg PO DAILY [facility] Last Admin: 12/14/17 11:17 Dose: 5 mg Azithromycin 500 mg/ Sodium (Chloride) 250 mls @ 250 mls/hr IVPB Q24H [facility] PRN Reason: Protocol Last Admin: 12/14/17 13:00 Dose: 250 mls/hr Ceftriaxone Sodium 1 gm/ (Sodium Chloride) 100 mls @ 100 mls/hr IVPB DAILY [facility] PRN Reason: Protocol Last Admin: 12/14/17 11:19 Dose: 100 mls/hr Heparin Sodium/Sodium Chloride (Heparin 79476 Units/250ml 1/2 Normal Saline) 25 ,000 units in 250 mls @ 9.798 mls/hr IV .Q24H PRN; Protocol; 12 UNITS/KG/HR PRN Reason: PROTOCOL Last Admin: 12/14/17 13:48 Dose: 12 units/kg/hr, 9.798 mls/hr Losartan Potassium (Cozaar) 25 mg PO DAILY [facility] Last Admin: 12/14/17 11:17 Dose: 25 mg Magnesium Hydroxide (Milk Of Magnesia) 30 ml PO HS [facility] Last Admin: 12/13/17 22:02 Dose: Not Given Metoprolol Succinate (Toprol Xl) 12.5 mg PO DAILY [facility] Last Admin: 12/14/17 11:18 Dose: 12.5 mg Saccharomyces Boulardii (Florastor) 250 mg PO BID [facility] Last Admin: 12/14/17 18:28 Dose: 250 mg Tamsulosin HCl (Flomax) 0.4 mg PO DAILY [facility] Last Admin: 12/14/17 11:18 Dose: 0.4 mg Valproate Sodium (Depakene Cap) 250 mg PO BID [facility] Last Admin: 12/14/17 18:30 Dose: 250 mg Vitamin A (Vitamin A & D Oint Ud Foilpak) 4 ea TOP BID [facility] Last Admin: 12/14/17 18:24 Dose: 4 ea - Labs Labs: 12/13/17 12:18 12/13/17 12:18 PT 16.3 SECONDS (9.7-12.2) H 12/13/17 12:18 INR 1.5 12/13/17 12:18 APTT 49 SECONDS (21-34) H D 12/14/17 20:47 Assessment and Plan - Assessment and Plan (Free Text) Assessment: 72 year old male, with PMHx of Anxiety, Asthma, BPH, Bipolar Disorder, CHF, COPD , Depression, HTN, hypercholesterolemia, CKD, and Schizophrenia, presented to the ED on 12/13 after being found unresponsive following an unwitnessed fall. Patient found to have RUL PNA r/o TB, NSTEMI. Plan: Neuro: GCS 15 Cardio: A: NSTEMI Cardiac cath after TB ruled out - Troponin: 0.81 --> 2.12 --> 8.31 - EKG: No ST changes , q waves or t waves noted - Asa, plavix, Cozaar, Metoprolol, heparin drip A: HF Diastolic Dysfunction LVEF 55% A: HTN - Cozaar, Metoprolol Pulm: A: RUL PNA Pulmonary consulted - Dr. Perez - CXR: Peripheral right upper lobe infiltrate. - CT Chest: - ?? TB --> r/o AFBs x3, Quant, PPD - Azithromycin 500Q24, Rocephin Daily 12/14 A: Asthma A: COPD A: Hypercholesterolemia : A: BPH - Resumed proscar, flomax Psych: A: Schizophrenia - Resumed Depakene Prophylaxis - Pepcid - SCDs, Heparin Drip
[2017-12-14] MEDS: Magnesium Hydroxide Susp 30 ml UD PO SCH (22:00)
[2017-12-15] MEDS: Albuterol-Ipratrop 3 mg / 0.5 (3 ml) UD INH SCH ×4 (01:08→20:32)
--- NOTE | 2017-12-15 05:34 | CON ---
DATE: 12/14/2017 COMPREHENSIVE ICU UROLOGIC CONSULTATION TIME OF CONSULTATION: Roughly at 6:56 p.m. 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 coli, ESBL, treated with meropenem IV. The patient was discharged back to his nursing facility and scheduled for his followup office appointment today, 12/14/2017, but was admitted to [facility] regular floor for treatment of pneumonia on 12/13/2017. The patient has a history of falling in the bathroom at the nursing facility with a possible change in mental status and confusion but did not lose consciousness. The patient recently developed an elevated troponin level and was transferred down to the ICU from the floor. The patient's [place] catheter is currently draining sylvester urine well, and the patient has no complaint with this catheter at this time. His urine culture does show positive gram negative rods. The patient is currently on IV Rocephin and Zithromax for treatment of his pneumonia and UTI. The patient is currently resting comfortable in the ICU. No complaint of pain. PAST MEDICAL HISTORY: He does have a past medical history of a bipolar disorder, heart failure, hypertension, hyperlipidemia, paranoid schizophrenia, chronic kidney disease, urosepsis, renal insufficiency, elevated PSA, BPH, and chronic urinary tract infections. Prior to this recent cystoscopic procedure, the patient also had a history of urinary incontinence. PHYSICAL EXAMINATION: Today, VITAL SIGNS: Show a temperature of 97.6 orally, pulse rate was 87, blood pressure 110/59, respirations are 20, O2 sat with nasal cannula is 100%. GENERAL: The patient is a well-developed, well-nourished white male. He seems to be alert at this hour. ABDOMEN: Soft, nondistended, nontender. BACK: No CVA tenderness. No suprapubic tenderness. GENITOURINARY: His testicles are down bilaterally and nontender and a 16-[place] catheter is draining sylvester urine well. LABORATORY EVALUATION: On 12/13/2017 shows a CBC with a WBC count of 8.3, hemoglobin of 11.5 and hematocrit of 34.1 with a platelet count of 209,000. His coag profile shows a PT of 16.3, INR of 1.5, and a PTT of 32. His chem profile shows a sodium of 142, potassium 4.8, chloride 108, CO2 of 27, BUN and creatinine of 31 and 1.3 respectively with a GFR of 54 indicating chronic kidney disease stage 3. His random glucose is 95, calcium 8.6, total bilirubin 2. AST 53, ALT 27, alk phos 58. His total creatinine kinase was 193. CK-MB was 8.2. Troponin I level was 0.81. Urinalysis shows the color was sylvester; clarity turbid; pH 5; specific gravity 1.021; 2+ protein; glucose normal; ketones 1+; blood 3+; nitrite positive; bilirubin negative; urobilinogen 4; leukocyte esterase 3+; wbc's 172; rbc's 27; and many bacteria per high power field. Microbiology shows the urine culture preliminary, positive for gram-negative rods. PLAN: 1. For this patient at this time is just to continue the patient on his current antibiotic regimen, pending the urine culture and sensitivities. 2. Maintain the 16-[place] catheter. 3. [place] catheter not to be removed at any time during this current period. This catheter will be only changed by Urology, preferably in the cystoscopy suite. The patient eventually will need a followup cystoscopy with a more permanent bladder neck incision. Norman Chiang MD [email or web address]
[2017-12-15 06:35] LABS: BASO # 0.1 K/uL (0.0-0.2); EOS # 0.3 K/uL (0.0-0.7); EOS % 3.4 % (0.0-4.0); HEMOGLOBIN 10.2 g/dL (12.0-18.0); LYMPH # 0.9 K/uL (1.0-4.3); LYMPH % 10.5 % (20.0-40.0); MEAN CORPUSCULAR HEMOGLOBIN 28.6 pg (27.0-31.0); MEAN CORPUSCULAR HGB CONC 32.9 g/dL (33.0-37.0); MEAN PLATELET VOLUME 10.7 fL (7.2-11.7); MONO % 11.6 % (0.0-10.0); NEUT # 6.1 K/uL (1.8-7.0); NEUT % 73.5 % (50.0-75.0); NRBC % 0.1 % (0.0-2.0); RBC 3.55 Mil/uL (4.40-5.90); RED CELL DISTRIBUTION WIDTH 14.4 % (11.5-14.5); WHITE BLOOD COUNT 8.2 K/uL (4.8-10.8)
[2017-12-15 06:47] LABS: ALB/GLOB RATIO 0.8 (1.0-2.1); ALBUMIN 2.7 g/dL (3.5-5.0); ALT/SGPT 31 U/L (21-72); AST/SGOT 55 U/L (17-59); BLOOD UREA NITROGEN 27 mg/dL (9-20); CALCIUM 8.1 mg/dl (8.6-10.4); GFR AFRICAN-AMERICAN > 60; GFR NON-AFRICAN AMERICAN > 60
[2017-12-15] MEDS ORDERED: Heparin25000 units/250ml 1/2NS 25,000 UNITS/250 ML BAG IV PRN ×3 (07:30→20:00)
[2017-12-15] MEDS: Acetylcysteine 20% Inhal Soln (4ml) INH PRN (08:16)
--- NOTE | 2017-12-15 08:59 | CP.PCM.PN ---
Subjective - Date & Time of Evaluation Date of Evaluation: 12/15/17 Time of Evaluation: 08:40 - Subjective Subjective: 72 year old male, with PMHx of Anxiety, Asthma, BPH, Bipolar Disorder, CHF, COPD , Depression, HTN, hypercholesterolemia, CKD, and Schizophrenia, presented to the ED on 12/13 after being found unresponsive following an unwitnessed fall. [facility] a [facility]. . In ED, patient was found to have peripheral right upper lobe infiltrate and right small pleural effusion on CXR. patient transferred to ICU FOR ELEVATED TROPONIN Respiratory isolation for right upper lung infiltrate pending sputum AFB continue antibiotics Possible cardiac cath Objective - Vital Signs/Intake and Output Vital Signs (last 24 hours): Temp Pulse Resp BP Pulse Ox 97.7 F 67 16 106/60 97 12/15/17 00:00 12/15/17 01:00 12/15/17 01:00 12/15/17 01:00 12/15/17 01:00 Intake and Output: 12/15/17 12/15/17 06:59 18:59 Intake Total 556.4 9.7 Output Total 360 50 Balance 196.4 -40.3 - Medications Medications: Current Medications Acetaminophen (Tylenol 325mg Tab) 650 mg PO Q4H PRN PRN Reason: Fever >100.4 F Acetylcysteine (Acetylcysteine 20%) 4 ml INH Q6H PRN PRN Reason: Cough and congestion Last Admin: 12/15/17 08:16 Dose: 4 ml Albuterol/Ipratropium (Duoneb 3 Mg/0.5 Mg (3 Ml) Ud) 3 ml INH RQ6 [facility] Last Admin: 12/15/17 08:16 Dose: 3 ml Albuterol/Ipratropium (Duoneb 3 Mg/0.5 Mg (3 Ml) Ud) 3 ml INH RQ4 PRN PRN Reason: Cough Aspirin (Ecotrin) 81 mg PO DAILY [facility] Last Admin: 12/14/17 11:18 Dose: 81 mg Clopidogrel Bisulfate (Plavix) 75 mg PO DAILY [facility] Last Admin: 12/14/17 11:18 Dose: 75 mg Famotidine (Pepcid) 20 mg PO DAILY [facility] Finasteride (Proscar) 5 mg PO DAILY [facility] Last Admin: 12/14/17 11:17 Dose: 5 mg Azithromycin 500 mg/ Sodium (Chloride) 250 mls @ 250 mls/hr IVPB Q24H [facility] PRN Reason: Protocol Last Admin: 12/14/17 13:00 Dose: 250 mls/hr Ceftriaxone Sodium 1 gm/ (Sodium Chloride) 100 mls @ 100 mls/hr IVPB DAILY [facility] PRN Reason: Protocol Last Admin: 12/14/17 11:19 Dose: 100 mls/hr Heparin Sodium/Sodium Chloride (Heparin 99467 Units/250ml 1/2 Normal Saline) 25 ,000 units in 250 mls @ 13.064 mls/hr IV .Q19H9M PRN; Protocol; 16 UNITS/KG/HR PRN Reason: PROTOCOL Last Admin: 12/15/17 08:00 Dose: 16 units/kg/hr, 13.064 mls/hr Losartan Potassium (Cozaar) 25 mg PO DAILY [facility] Last Admin: 12/14/17 11:17 Dose: 25 mg Magnesium Hydroxide (Milk Of Magnesia) 30 ml PO HS [facility] Last Admin: 12/14/17 22:00 Dose: Not Given Metoprolol Succinate (Toprol Xl) 12.5 mg PO DAILY [facility] Last Admin: 12/14/17 11:18 Dose: 12.5 mg Saccharomyces Boulardii (Florastor) 250 mg PO BID [facility] Last Admin: 12/14/17 18:28 Dose: 250 mg Tamsulosin HCl (Flomax) 0.4 mg PO DAILY [facility] Last Admin: 12/14/17 11:18 Dose: 0.4 mg Valproate Sodium (Depakene Cap) 250 mg PO BID [facility] Last Admin: 12/14/17 18:30 Dose: 250 mg Vitamin A (Vitamin A & D Oint Ud Foilpak) 4 ea TOP BID [facility] Last Admin: 12/14/17 18:24 Dose: 4 ea - Labs Labs: 12/15/17 06:24 12/15/17 06:24 PT 16.3 SECONDS (9.7-12.2) H 12/13/17 12:18 INR 1.5 12/13/17 12:18 APTT 30 SECONDS (21-34) D 12/15/17 06:24 - Head Exam Head Exam: ATRAUMATIC, NORMOCEPHALIC - ENT Exam ENT Exam: Mucous Membranes Moist - Neck Exam Neck Exam: Normal Inspection - Respiratory Exam Respiratory Exam: Clear to Ausculation Bilateral - Cardiovascular Exam Cardiovascular Exam: REGULAR RHYTHM - GI/Abdominal Exam GI & Abdominal Exam: Soft, Normal Bowel Sounds - Extremities Exam Extremities Exam: Normal Inspection Assessment and Plan (1) Pneumonia involving right lung Status: Acute (2) Non-STEMI (non-ST elevated myocardial infarction) Status: Acute (3) COPD (chronic obstructive pulmonary disease) Status: Acute
[2017-12-15] MEDS: Metoprolol Succinate 12.5 mg XL Tab PO SCH (10:10)
[2017-12-15] MEDS: Vitamins A & D Oint UD Foilpak TOP SCH ×2 (10:12→17:35)
[2017-12-15] MEDS: Saccharomyces Boulardi 250 mg Cap PO SCH ×2 (10:16→17:35)
--- NOTE | 2017-12-15 10:42 | CT ---
PROCEDURE: CT Chest without contrast HISTORY: RUL PNA, concern for TB COMPARISON: Portable chest 12/13/2017. TECHNIQUE: Contiguous axial images were obtained through the chest without intravenous contrast enhancement. Sagittal and coronal reconstructions were performed. Radiation dose (DLP): 722.03 mGy-cm. This CT exam was performed using one or more of the following dose reduction techniques: Automated exposure control, adjustment of the mA and/or kV according to patient size, and/or use of iterative reconstruction technique. FINDINGS: LUNGS: A mild right upper lobe infiltrate is appreciated abutting the lateral margins of the minor and major fissures. Limited air bronchograms are identified in this infiltrate and follow-up CT is advised following therapy to exclude underlying lesion. Bilateral lower lobe compressive atelectasis is related to bilateral pleural effusions, [id number] at the right and minimal at the left. Trace effusion is seen within the right major fissure. Elevation of the left hemidiaphragm is associated with compressive atelectasis at the left lower lobe base as well. No pneumothorax bilaterally. Central airways appear clear. MEDIASTINUM: Unremarkable thoracic aorta. No aneurysm. Normal sized heart. Trace inferior pericardial effusion. Main pulmonary artery unremarkable. No vascular congestion. Mild mediastinal lymphadenopathy is appreciate including a sub carinal lymph node measuring 2.0 x 1.1 cm and inferior right paratracheal lymph node measuring 2.0 x 0.8 cm. PLEURA: As above. BONES: No acute fracture or destructive bony lesion appreciable. Old healed lateral right 7th and 8th rib fractures are identified, seen best in the sagittal series. UPPER ABDOMEN: Cholelithiasis. 2.0 cm cyst right lobe ingest the gallbladder fossa laterally. 5.2 cm exophytic cyst left lobe liver inferolaterally within nearly adjacent cysts somewhat more cephalad and lateral measuring 1.9 cm greatest dimension. Finally, 1.7 cm cyst upper pole left kidney. OTHER FINDINGS: None. IMPRESSION: 1. Infiltrate right upper lobe abutting the minor and major fissures. Limited air bronchograms are associated and follow-up CT following therapy is advised to exclude an occult lesion. 2. Mild mediastinal lymphadenopathy. 3. Compressive atelectasis is noted at the dependent bilateral lower lobes due to [id number] right and minimal left pleural effusions. Left hemidiaphragm elevation also causes compressive atelectasis the left lower lobe. 4. Cholelithiasis. Two left lobe and a solitary right lobe hepatic cyst incidentally noted as well as an upper pole left renal cyst.
[2017-12-15] MEDS: Azithromycin 500 MG in Sodium Chloride 0.9% 250 ML IVPB SCH (12:06)
[2017-12-15] MEDS ORDERED: Piperacillin/Tazobact 2.25 gm Inj IVPB STA (12:37)
--- NOTE | 2017-12-15 13:29 | CP.CCUPN ---
<Bozena George - Last Filed: 12/15/17 13:23> CCU Subjective - Physician Review Subjective (Free Text): Patient was seen and examined at bedside. No acute complaints. CCU Objective - Vital Signs / Intake & Output Vital Signs (Last 4 hours): Vital Signs Pulse 12/15/17 11:33 63 Intake and Output (Last 8hrs): Intake & Output 12/14/17 12/15/17 12/15/17 22:59 06:59 14:59 Intake Total 1377.6 127.6 212.1 Output Total 565 260 50 Balance 812.6 -132.4 162.1 Weight 170 lb 172 lb Intake: IV 250 Intake, IV Amount 77.6 77.6 62.1 Left Wrist 77.6 77.6 62.1 Oral 1050 50 150 Output: Urine 565 260 50 Urethral (Hawk) 565 260 50 Emesis 0 Other: # Bowel Movements 0 0 0 - Physical Exam Head: Positive for: Atraumatic, Normocephalic Pupils: Positive for: PERRL Extroacular Muscles: Positive for: EOMI Conjunctiva: Positive for: Normal Mouth: Positive for: Moist Mucous Membranes Neck: Positive for: Normal Range of Motion Respiratory/Chest: Positive for: Decreased Breath Sounds Cardiovascular: Positive for: Tachycardic Abdomen: Positive for: Tenderness, Normal Bowel Sounds Upper Extremity: Positive for: Normal Inspection, NORMAL PULSES, Neurovascularly Intact, Capillary Refill < 2s Lower Extremity: Positive for: Normal Inspection, NORMAL PULSES, Neurovascularly Intact Neurological: Positive for: GCS=15, CN II-XII Intact Skin: Positive for: Warm, Dry, Rashes, Normal Color Psychiatric: Positive for: Alert, Oriented x 3, Normal Insight - Medications Active Medications: Active Medications Generic Name Dose Route Start Last Admin Trade Name Freq PRN Reason Stop Dose Admin Acetaminophen 650 mg 12/13/17 17:58 Tylenol 325mg Tab PO Q4H PRN Fever >100.4 F Acetylcysteine 4 ml 12/14/17 14:56 12/15/17 08:16 Acetylcysteine 20% INH 4 ml Q6H PRN Administration Cough and congestion Albuterol/Ipratropium 3 ml 12/13/17 20:00 12/15/17 08:16 Duoneb 3 Mg/0.5 Mg (3 Ml) Ud INH 3 ml RQ6 GHANSHYAM Administration Albuterol/Ipratropium 3 ml 12/14/17 14:56 Duoneb 3 Mg/0.5 Mg (3 Ml) Ud INH RQ4 PRN Cough Aspirin 81 mg 12/14/17 10:00 12/15/17 10:12 Ecotrin PO 81 mg DAILY GHANSHYAM Administration Clopidogrel Bisulfate 75 mg 12/14/17 10:00 12/15/17 10:14 Plavix PO 75 mg DAILY GHANSHYAM Administration Famotidine 20 mg 12/15/17 10:00 12/15/17 10:14 Pepcid PO 20 mg DAILY GHANSHYAM Administration Finasteride 5 mg 12/14/17 10:00 12/15/17 10:16 Proscar PO 5 mg DAILY GHANSHYAM Administration Azithromycin 500 mg/ Sodium 250 mls @ 250 mls/hr 12/14/17 12:00 12/15/17 12: 06 Chloride IVPB 250 mls/hr Q24H GHANSHYAM Administration Protocol Piperacillin Sod/Tazobactam 100 mls @ 200 mls/hr 12/15/17 13:00 Sod 3.375 gm/ Sodium Chloride IVPB Q6H GHANSHYAM Protocol Heparin Sodium/Sodium Chloride 25,000 units in 250 mls @ 16.329 mls/hr 13:15 Heparin 40493 Units/250ml 1/2 Normal Saline IV .[id number] PRN PROTOCOL Protocol 20 UNITS/KG/HR Losartan Potassium 25 mg 12/14/17 10:00 12/15/17 10:09 Cozaar PO 25 mg DAILY GHANSHYAM Administration Magnesium Hydroxide 30 ml 12/13/17 22:00 12/14/17 22:00 Milk Of Magnesia PO Not Given HS GHANSHYAM Metoprolol Succinate 12.5 mg 12/14/17 10:00 12/15/17 10:10 Toprol Xl PO 12.5 mg DAILY GHANSHYAM Administration Saccharomyces Boulardii 250 mg 12/14/17 18:00 12/15/17 10:16 Florastor PO 250 mg BID GHANSHYAM Administration Tamsulosin HCl 0.4 mg 12/14/17 10:00 12/15/17 10:16 Flomax PO 0.4 mg DAILY GHANSHYAM Administration Valproate Sodium 250 mg 12/13/17 18:00 12/15/17 10:26 Depakene Cap PO 250 mg BID GHANSHYAM Administration Vitamin A 4 ea 12/14/17 18:00 12/15/17 10:12 Vitamin A & D Oint Ud Foilpak TOP 4 ea BID GHANSHYAM Administration - Patient Studies Lab Studies: Microbiology Studies 12/13/17 12:35 Urine Culture - Final Urine Escherichia Coli 12/14/17 05:05 Urine Culture - Final Urine No Growth (<1,000 CFU/ML) 12/13/17 14:00 Blood Culture - Preliminary Blood NO GROWTH AFTER 24 HOURS 12/14/17 05:48 Blood Culture - Preliminary Blood NO GROWTH AFTER 24 HOURS Lab Studies 12/15/17 12/15/17 12/15/17 Range/Units 12:24 09:43 09:43 WBC (4.8-10.8) K/uL RBC (4.40-5.90) Mil/uL Hgb (12.0-18.0) g/dL Hct (35.0-51.0) % MCV (80.0-94.0) fL MCH (27.0-31.0) pg MCHC (33.0-37.0) g/dL RDW (11.5-14.5) % Plt Count (130-400) K/uL MPV (7.2-11.7) fL Neut % (Auto) (50.0-75.0) % Lymph % (Auto) (20.0-40.0) % [place] % (Auto) (0.0-10.0) % Eos % (Auto) (0.0-4.0) % Baso % (Auto) (0.0-2.0) % Neut # (Auto) (1.8-7.0) K/uL Lymph # (Auto) (1.0-4.3) K/uL [place] # (Auto) (0.0-0.8) K/uL Eos # (Auto) (0.0-0.7) K/uL Baso # (Auto) (0.0-0.2) K/uL ESR 60 H (0-15) mm/hr APTT 31 (21-34) SECONDS Sodium (132-148) mmol/L Potassium (3.6-5.2) mmol/L Chloride (98-107) mmol/L Carbon Dioxide (22-30) mmol/L Anion Gap (10-20) BUN (9-20) mg/dL Creatinine (0.8-1.5) mg/dL Est GFR ( Amer) Est GFR (Non-Af Amer) Random Glucose (75-110) mg/dL Calcium (8.6-10.4) mg/dl Phosphorus (2.5-4.5) mg/dL Magnesium (1.6-2.3) mg/dL Total Bilirubin (0.2-1.3) mg/dL AST (17-59) U/L ALT (21-72) U/L Alkaline Phosphatase (38-126) U/L C-Reactive Protein 77.10 H (0.0-9.9) mg/L Total Protein (6.3-8.3) g/dL Albumin (3.5-5.0) g/dL Globulin (2.2-3.9) gm/dL Albumin/Globulin Ratio (1.0-2.1) 12/15/17 12/15/17 12/15/17 Range/Units 06:24 06:24 06:24 WBC 8.2 (4.8-10.8) K/uL RBC 3.55 L (4.40-5.90) Mil/uL Hgb 10.2 L (12.0-18.0) g/dL Hct 30.9 L (35.0-51.0) % MCV 87.0 (80.0-94.0) fL MCH 28.6 (27.0-31.0) pg MCHC 32.9 L (33.0-37.0) g/dL RDW 14.4 (11.5-14.5) % Plt Count 188 (130-400) K/uL MPV 10.7 (7.2-11.7) fL Neut % (Auto) 73.5 (50.0-75.0) % Lymph % (Auto) 10.5 L (20.0-40.0) % [place] % (Auto) 11.6 H (0.0-10.0) % Eos % (Auto) 3.4 (0.0-4.0) % Baso % (Auto) 1.0 (0.0-2.0) % Neut # (Auto) 6.1 (1.8-7.0) K/uL Lymph # (Auto) 0.9 L (1.0-4.3) K/uL [place] # (Auto) 1.0 H (0.0-0.8) K/uL Eos # (Auto) 0.3 (0.0-0.7) K/uL Baso # (Auto) 0.1 (0.0-0.2) K/uL ESR (0-15) mm/hr APTT 30 D (21-34) SECONDS Sodium 145 (132-148) mmol/L Potassium 4.0 (3.6-5.2) mmol/L Chloride 109 H (98-107) mmol/L Carbon Dioxide 26 (22-30) mmol/L Anion Gap 14 (10-20) BUN 27 H (9-20) mg/dL Creatinine 1.0 (0.8-1.5) mg/dL Est GFR ( Amer) > 60 Est GFR (Non-Af Amer) > 60 Random Glucose 56 L (75-110) mg/dL Calcium 8.1 L (8.6-10.4) mg/dl Phosphorus 3.2 (2.5-4.5) mg/dL Magnesium 2.0 (1.6-2.3) mg/dL Total Bilirubin 1.1 (0.2-1.3) mg/dL AST 55 (17-59) U/L ALT 31 (21-72) U/L Alkaline Phosphatase 48 (38-126) U/L C-Reactive Protein (0.0-9.9) mg/L Total Protein 6.2 L (6.3-8.3) g/dL Albumin 2.7 L D (3.5-5.0) g/dL Globulin 3.5 (2.2-3.9) gm/dL Albumin/Globulin Ratio 0.8 L (1.0-2.1) 12/14/17 Range/Units 20:47 WBC (4.8-10.8) K/uL RBC (4.40-5.90) Mil/uL Hgb (12.0-18.0) g/dL Hct (35.0-51.0) % MCV (80.0-94.0) fL MCH (27.0-31.0) pg MCHC (33.0-37.0) g/dL RDW (11.5-14.5) % Plt Count (130-400) K/uL MPV (7.2-11.7) fL Neut % (Auto) (50.0-75.0) % Lymph % (Auto) (20.0-40.0) % [place] % (Auto) (0.0-10.0) % Eos % (Auto) (0.0-4.0) % Baso % (Auto) (0.0-2.0) % Neut # (Auto) (1.8-7.0) K/uL Lymph # (Auto) (1.0-4.3) K/uL [place] # (Auto) (0.0-0.8) K/uL Eos # (Auto) (0.0-0.7) K/uL Baso # (Auto) (0.0-0.2) K/uL ESR (0-15) mm/hr APTT 49 H D (21-34) SECONDS Sodium (132-148) mmol/L Potassium (3.6-5.2) mmol/L Chloride (98-107) mmol/L Carbon Dioxide (22-30) mmol/L Anion Gap (10-20) BUN (9-20) mg/dL Creatinine (0.8-1.5) mg/dL Est GFR ( Amer) Est GFR (Non-Af Amer) Random Glucose (75-110) mg/dL Calcium (8.6-10.4) mg/dl Phosphorus (2.5-4.5) mg/dL Magnesium (1.6-2.3) mg/dL Total Bilirubin (0.2-1.3) mg/dL AST (17-59) U/L ALT (21-72) U/L Alkaline Phosphatase (38-126) U/L C-Reactive Protein (0.0-9.9) mg/L Total Protein (6.3-8.3) g/dL Albumin (3.5-5.0) g/dL Globulin (2.2-3.9) gm/dL Albumin/Globulin Ratio (1.0-2.1) Laboratory Results - last 24 hr 12/14/17 12/15/17 12/15/17 20:47 06:24 06:24 WBC 8.2 RBC 3.55 L Hgb 10.2 L Hct 30.9 L MCV 87.0 MCH 28.6 MCHC 32.9 L RDW 14.4 Plt Count 188 MPV 10.7 Neut % (Auto) 73.5 Lymph % (Auto) 10.5 L [place] % (Auto) 11.6 H Eos % (Auto) 3.4 Baso % (Auto) 1.0 Neut # (Auto) 6.1 Lymph # (Auto) 0.9 L [place] # (Auto) 1.0 H Eos # (Auto) 0.3 Baso # (Auto) 0.1 ESR APTT 49 H D Sodium 145 Potassium 4.0 Chloride 109 H Carbon Dioxide 26 Anion Gap 14 BUN 27 H Creatinine 1.0 Est GFR ( Amer) > 60 Est GFR (Non-Af Amer) > 60 Random Glucose 56 L Calcium 8.1 L Phosphorus 3.2 Magnesium 2.0 Total Bilirubin 1.1 AST 55 ALT 31 Alkaline Phosphatase 48 C-Reactive Protein Total Protein 6.2 L Albumin 2.7 L D Globulin 3.5 Albumin/Globulin Ratio 0.8 L 12/15/17 12/15/17 12/15/17 06:24 09:43 09:43 WBC RBC Hgb Hct MCV MCH MCHC RDW Plt Count MPV Neut % (Auto) Lymph % (Auto) [place] % (Auto) Eos % (Auto) Baso % (Auto) Neut # (Auto) Lymph # (Auto) [place] # (Auto) Eos # (Auto) Baso # (Auto) ESR 60 H APTT 30 D Sodium Potassium Chloride Carbon Dioxide Anion Gap BUN Creatinine Est GFR ( Amer) Est GFR (Non-Af Amer) Random Glucose Calcium Phosphorus Magnesium Total Bilirubin AST ALT Alkaline Phosphatase C-Reactive Protein 77.10 H Total Protein Albumin Globulin Albumin/Globulin Ratio 12/15/17 12:24 WBC RBC Hgb Hct MCV MCH MCHC RDW Plt Count MPV Neut % (Auto) Lymph % (Auto) [place] % (Auto) Eos % (Auto) Baso % (Auto) Neut # (Auto) Lymph # (Auto) [place] # (Auto) Eos # (Auto) Baso # (Auto) ESR APTT 31 Sodium Potassium Chloride Carbon Dioxide Anion Gap BUN Creatinine Est GFR ( Amer) Est GFR (Non-Af Amer) Random Glucose Calcium Phosphorus Magnesium Total Bilirubin AST ALT Alkaline Phosphatase C-Reactive Protein Total Protein Albumin Globulin Albumin/Globulin Ratio EKG/Cardiology Studies: Cardiology / EKG Studies 12/14/17 13:19 EKG [ELECTROCARDIOGRAM] Stat Comment: Mode Of Transportation: PORTABLE Reason For Exam: chest pain Isolation: Airborne Critical Care Progress Note - Nutrition Nutrition: Nutrition Category Date Time Status Heart Healthy Diet [DIET] Diets 12/13/17 Dinner Active Assessment/Plan - Assessment and Plan (Free Text) Assessment: 72 year old male, with PMHx of Anxiety, Asthma, BPH, Bipolar Disorder, CHF, COPD , Depression, HTN, hypercholesterolemia, CKD, and Schizophrenia, presented to the ED on 12/13 after being found unresponsive following an unwitnessed fall. Patient found to have RUL PNA r/o TB, NSTEMI. Plan: Neuro: GCS 15 Cardio: A: NSTEMI Cardiology consulted - Dr. Ramirez - Troponin: 0.81 --> 2.12 --> 8.31 - EKG: No ST changes , q waves or t waves noted - Asa, plavix, Cozaar, Metoprolol, heparin drip A: HF Diastolic Dysfunction LVEF 55% A: HTN - Cozaar, Metoprolol Pulm: A: RUL PNA Pulmonary consulted - Dr. Perez - CXR: Peripheral right upper lobe infiltrate. - CT Chest: A mild right upper lobe infiltrate is appreciated abutting the lateral margins of the minor and major fissures. Limited air bronchograms are identified in this infiltrate and follow-up CT is advised following therapy to exclude underlying lesion. Bilateral lower lobe compressive atelectasis is related to bilateral pleural effusions, [id number] at the right and minimal at the left. Trace effusion is seen within the right major fissure. Elevation of the left hemidiaphragm is associated with compressive atelectasis at the left lower lobe base as well. No pneumothorax bilaterally. Central airways appear clear. Mild mediastinal lymphadenopathy is appreciate including a sub carinal lymph node measuring 2.0 x 1.1 cm and inferior right paratracheal lymph node measuring 2.0 x 0.8 cm.Cholelithiasis. 2.0 cm cyst right lobe ingest the gallbladder fossa laterally. 5.2 cm exophytic cyst left lobe liver inferolaterally within nearly adjacent cysts somewhat more cephalad and lateral measuring 1.9 cm greatest dimension. Finally, 1.7 cm cyst upper pole left kidney. - ?? TB --> r/o AFBs x3, Quant, PPD - Azithromycin 500Q24, Rocephin Daily 12/14 A: Asthma A: COPD A: Hypercholesterolemia : A: BPH - Resumed proscar, flomax Psych: A: Schizophrenia - Resumed Depakene Prophylaxis - Pepcid - SCDs, Heparin Drip Disposition: Patient is transferred to TELEMETRY. Bozena Griffith DO, PGY-1 <King Quinteros M - Last Filed: 12/16/17 08:28> CCU Objective - Vital Signs / Intake & Output Intake and Output (Last 8hrs): Intake & Output 12/15/17 12/16/17 12/16/17 22:59 06:59 14:59 Intake Total 478.8 311.0 16.3 Output Total 450 550 Balance 28.8 311.0 -533.7 Weight 171 lb 0.6 oz Intake: IV 54 Intake, IV Amount 233.8 147.0 16.3 Left Wrist 133.8 147.0 16.3 Right Forearm 100 Oral 245 110 Output: Urine 450 550 Urethral (Hawk) 450 550 Stool 0 Other: # Bowel Movements 0 0 - Medications Active Medications: Active Medications Generic Name Dose Route Start Last Admin Trade Name Freq PRN Reason Stop Dose Admin Acetaminophen 650 mg 12/13/17 17:58 Tylenol 325mg Tab PO Q4H PRN Fever >100.4 F Acetylcysteine 4 ml 12/14/17 14:56 12/15/17 08:16 Acetylcysteine 20% INH 4 ml Q6H PRN Administration Cough and congestion Albuterol/Ipratropium 3 ml 12/13/17 20:00 12/16/17 08:13 Duoneb 3 Mg/0.5 Mg (3 Ml) Ud INH Not Given RQ6 GHANSHYAM Albuterol/Ipratropium 3 ml 12/14/17 14:56 Duoneb 3 Mg/0.5 Mg (3 Ml) Ud INH RQ4 PRN Cough Aspirin 81 mg 12/14/17 10:00 12/15/17 10:12 Ecotrin PO 81 mg DAILY GHANSHYAM Administration Clopidogrel Bisulfate 75 mg 12/14/17 10:00 12/15/17 10:14 Plavix PO 75 mg DAILY GHANSHYAM Administration Famotidine 20 mg 12/15/17 10:00 12/15/17 10:14 Pepcid PO 20 mg DAILY GHANSHYAM Administration Finasteride 5 mg 12/14/17 10:00 12/15/17 10:16 Proscar PO 5 mg DAILY GHANSHYAM Administration Azithromycin 500 mg/ Sodium 250 mls @ 250 mls/hr 12/14/17 12:00 12/15/17 12: 06 Chloride IVPB 250 mls/hr Q24H GHANSHYAM Administration Protocol Piperacillin Sod/Tazobactam 100 mls @ 200 mls/hr 12/15/17 13:00 12/16/17 06: 49 Sod 3.375 gm/ Sodium Chloride IVPB 200 mls/hr Q6H GHANSHYAM Administration Protocol Heparin Sodium/Sodium Chloride 25,000 units in 250 mls @ 17.962 mls/hr 20:00 12/16/17 03:30 Heparin 08014 Units/250ml 1/2 Normal Saline IV 20 units/kg/hr .[id number] PRN 16.329 mls/hr PROTOCOL Titration Protocol 22 UNITS/KG/HR Losartan Potassium 25 mg 12/14/17 10:00 12/15/17 10:09 Cozaar PO 25 mg DAILY GHANSHYAM Administration Magnesium Hydroxide 30 ml 12/13/17 22:00 12/15/17 21:43 Milk Of Magnesia PO 30 ml HS GHANSHYAM Administration Metoprolol Succinate 12.5 mg 12/14/17 10:00 12/15/17 10:10 Toprol Xl PO 12.5 mg DAILY GHANSHYAM Administration Saccharomyces Boulardii 250 mg 12/14/17 18:00 12/15/17 17:35 Florastor PO 250 mg BID GHANSHYAM Administration Tamsulosin HCl 0.4 mg 12/14/17 10:00 12/15/17 10:16 Flomax PO 0.4 mg DAILY GHANSHYAM Administration Valproate Sodium 250 mg 12/13/17 18:00 12/15/17 17:35 Depakene Cap PO 250 mg BID GHANSHYAM Administration Vitamin A 4 ea 12/14/17 18:00 12/15/17 17:35 Vitamin A & D Oint Ud Foilpak TOP 4 ea BID GHANSHYAM Administration - Patient Studies Lab Studies: Microbiology Studies 12/14/17 05:48 Blood Culture - Preliminary Blood NO GROWTH AFTER 48 HOURS 12/14/17 16:37 MRSA Culture (Admit) - Final Naris MRSA NOT DETECTED 12/13/17 12:35 Urine Culture - Final Urine Escherichia Coli 12/14/17 05:05 Urine Culture - Final Urine No Growth (<1,000 CFU/ML) 12/13/17 14:00 Blood Culture - Preliminary Blood NO GROWTH AFTER 24 HOURS Lab Studies 12/16/17 12/16/17 12/16/17 Range/Units 07:25 07:23 03:18 WBC (4.8-10.8) K/uL RBC (4.40-5.90) Mil/uL Hgb (12.0-18.0) g/dL Hct (35.0-51.0) % MCV (80.0-94.0) fL MCH (27.0-31.0) pg MCHC (33.0-37.0) g/dL RDW (11.5-14.5) % Plt Count (130-400) K/uL MPV (7.2-11.7) fL Neut % (Auto) (50.0-75.0) % Lymph % (Auto) (20.0-40.0) % [place] % (Auto) (0.0-10.0) % Eos % (Auto) (0.0-4.0) % Baso % (Auto) (0.0-2.0) % Neut # (Auto) (1.8-7.0) K/uL Lymph # (Auto) (1.0-4.3) K/uL [place] # (Auto) (0.0-0.8) K/uL Eos # (Auto) (0.0-0.7) K/uL Baso # (Auto) (0.0-0.2) K/uL ESR (0-15) mm/hr PT 17.1 H (9.7-12.2) SECONDS INR 1.6 APTT 99 H D (21-34) SECONDS Sodium (132-148) mmol/L Potassium (3.6-5.2) mmol/L Chloride (98-107) mmol/L Carbon Dioxide (22-30) mmol/L Anion Gap (10-20) BUN (9-20) mg/dL Creatinine (0.8-1.5) mg/dL Est GFR ( Amer) Est GFR (Non-Af Amer) POC Glucose (mg/dL) 72 67 (65-110) mg/dL Random Glucose (75-110) mg/dL Calcium (8.6-10.4) mg/dl Phosphorus (2.5-4.5) mg/dL Magnesium (1.6-2.3) mg/dL Total Bilirubin (0.2-1.3) mg/dL AST (17-59) U/L ALT (21-72) U/L Alkaline Phosphatase (38-126) U/L C-Reactive Protein (0.0-9.9) mg/L Total Protein (6.3-8.3) g/dL Albumin (3.5-5.0) g/dL Globulin (2.2-3.9) gm/dL Albumin/Globulin Ratio (1.0-2.1) 12/16/17 12/16/17 12/15/17 Range/Units 03:18 03:18 21:13 WBC 7.8 (4.8-10.8) K/uL RBC 3.45 L (4.40-5.90) Mil/uL Hgb 10.1 L (12.0-18.0) g/dL Hct 29.8 L (35.0-51.0) % MCV 86.3 (80.0-94.0) fL MCH 29.2 (27.0-31.0) pg MCHC 33.8 (33.0-37.0) g/dL RDW 13.7 (11.5-14.5) % Plt Count 170 (130-400) K/uL MPV 10.9 (7.2-11.7) fL Neut % (Auto) 68.6 (50.0-75.0) % Lymph % (Auto) 14.7 L (20.0-40.0) % [place] % (Auto) 11.4 H (0.0-10.0) % Eos % (Auto) 4.3 H (0.0-4.0) % Baso % (Auto) 1.0 (0.0-2.0) % Neut # (Auto) 5.3 (1.8-7.0) K/uL Lymph # (Auto) 1.1 (1.0-4.3) K/uL [place] # (Auto) 0.9 H (0.0-0.8) K/uL Eos # (Auto) 0.3 (0.0-0.7) K/uL Baso # (Auto) 0.1 (0.0-0.2) K/uL ESR (0-15) mm/hr PT (9.7-12.2) SECONDS INR APTT (21-34) SECONDS Sodium 145 (132-148) mmol/L Potassium 3.6 (3.6-5.2) mmol/L Chloride 111 H (98-107) mmol/L Carbon Dioxide 27 (22-30) mmol/L Anion Gap 12 (10-20) BUN 21 H (9-20) mg/dL Creatinine 1.0 (0.8-1.5) mg/dL Est GFR ( Amer) > 60 Est GFR (Non-Af Amer) > 60 POC Glucose (mg/dL) 109 (65-110) mg/dL Random Glucose 70 L (75-110) mg/dL Calcium 7.7 L (8.6-10.4) mg/dl Phosphorus 2.6 (2.5-4.5) mg/dL Magnesium 1.9 (1.6-2.3) mg/dL Total Bilirubin 0.9 (0.2-1.3) mg/dL AST 37 (17-59) U/L ALT 32 (21-72) U/L Alkaline Phosphatase 44 (38-126) U/L C-Reactive Protein (0.0-9.9) mg/L Total Protein 5.7 L (6.3-8.3) g/dL Albumin 2.4 L (3.5-5.0) g/dL Globulin 3.3 (2.2-3.9) gm/dL Albumin/Globulin Ratio 0.7 L (1.0-2.1) 12/15/17 12/15/17 12/15/17 Range/Units 18:12 16:04 16:02 WBC (4.8-10.8) K/uL RBC (4.40-5.90) Mil/uL Hgb (12.0-18.0) g/dL Hct (35.0-51.0) % MCV (80.0-94.0) fL MCH (27.0-31.0) pg MCHC (33.0-37.0) g/dL RDW (11.5-14.5) % Plt Count (130-400) K/uL MPV (7.2-11.7) fL Neut % (Auto) (50.0-75.0) % Lymph % (Auto) (20.0-40.0) % [place] % (Auto) (0.0-10.0) % Eos % (Auto) (0.0-4.0) % Baso % (Auto) (0.0-2.0) % Neut # (Auto) (1.8-7.0) K/uL Lymph # (Auto) (1.0-4.3) K/uL [place] # (Auto) (0.0-0.8) K/uL Eos # (Auto) (0.0-0.7) K/uL Baso # (Auto) (0.0-0.2) K/uL ESR (0-15) mm/hr PT (9.7-12.2) SECONDS INR APTT 34 (21-34) SECONDS Sodium (132-148) mmol/L Potassium (3.6-5.2) mmol/L Chloride (98-107) mmol/L Carbon Dioxide (22-30) mmol/L Anion Gap (10-20) BUN (9-20) mg/dL Creatinine (0.8-1.5) mg/dL Est GFR ( Amer) Est GFR (Non-Af Amer) POC Glucose (mg/dL) 74 69 (65-110) mg/dL Random Glucose (75-110) mg/dL Calcium (8.6-10.4) mg/dl Phosphorus (2.5-4.5) mg/dL Magnesium (1.6-2.3) mg/dL Total Bilirubin (0.2-1.3) mg/dL AST (17-59) U/L ALT (21-72) U/L Alkaline Phosphatase (38-126) U/L C-Reactive Protein (0.0-9.9) mg/L Total Protein (6.3-8.3) g/dL Albumin (3.5-5.0) g/dL Globulin (2.2-3.9) gm/dL Albumin/Globulin Ratio (1.0-2.1) 12/15/17 12/15/17 12/15/17 Range/Units 13:53 12:24 09:43 WBC (4.8-10.8) K/uL RBC (4.40-5.90) Mil/uL Hgb (12.0-18.0) g/dL Hct (35.0-51.0) % MCV (80.0-94.0) fL MCH (27.0-31.0) pg MCHC (33.0-37.0) g/dL RDW (11.5-14.5) % Plt Count (130-400) K/uL MPV (7.2-11.7) fL Neut % (Auto) (50.0-75.0) % Lymph % (Auto) (20.0-40.0) % [place] % (Auto) (0.0-10.0) % Eos % (Auto) (0.0-4.0) % Baso % (Auto) (0.0-2.0) % Neut # (Auto) (1.8-7.0) K/uL Lymph # (Auto) (1.0-4.3) K/uL [place] # (Auto) (0.0-0.8) K/uL Eos # (Auto) (0.0-0.7) K/uL Baso # (Auto) (0.0-0.2) K/uL ESR (0-15) mm/hr PT (9.7-12.2) SECONDS INR APTT 31 (21-34) SECONDS Sodium (132-148) mmol/L Potassium (3.6-5.2) mmol/L Chloride (98-107) mmol/L Carbon Dioxide (22-30) mmol/L Anion Gap (10-20) BUN (9-20) mg/dL Creatinine (0.8-1.5) mg/dL Est GFR ( Amer) Est GFR (Non-Af Amer) POC Glucose (mg/dL) 93 (65-110) mg/dL Random Glucose (75-110) mg/dL Calcium (8.6-10.4) mg/dl Phosphorus (2.5-4.5) mg/dL Magnesium (1.6-2.3) mg/dL Total Bilirubin (0.2-1.3) mg/dL AST (17-59) U/L ALT (21-72) U/L Alkaline Phosphatase (38-126) U/L C-Reactive Protein 77.10 H (0.0-9.9) mg/L Total Protein (6.3-8.3) g/dL Albumin (3.5-5.0) g/dL Globulin (2.2-3.9) gm/dL Albumin/Globulin Ratio (1.0-2.1) 12/15/17 Range/Units 09:43 WBC (4.8-10.8) K/uL RBC (4.40-5.90) Mil/uL Hgb (12.0-18.0) g/dL Hct (35.0-51.0) % MCV (80.0-94.0) fL MCH (27.0-31.0) pg MCHC (33.0-37.0) g/dL RDW (11.5-14.5) % Plt Count (130-400) K/uL MPV (7.2-11.7) fL Neut % (Auto) (50.0-75.0) % Lymph % (Auto) (20.0-40.0) % [place] % (Auto) (0.0-10.0) % Eos % (Auto) (0.0-4.0) % Baso % (Auto) (0.0-2.0) % Neut # (Auto) (1.8-7.0) K/uL Lymph # (Auto) (1.0-4.3) K/uL [place] # (Auto) (0.0-0.8) K/uL Eos # (Auto) (0.0-0.7) K/uL Baso # (Auto) (0.0-0.2) K/uL ESR 60 H (0-15) mm/hr PT (9.7-12.2) SECONDS INR APTT (21-34) SECONDS Sodium (132-148) mmol/L Potassium (3.6-5.2) mmol/L Chloride (98-107) mmol/L Carbon Dioxide (22-30) mmol/L Anion Gap (10-20) BUN (9-20) mg/dL Creatinine (0.8-1.5) mg/dL Est GFR ( Amer) Est GFR (Non-Af Amer) POC Glucose (mg/dL) (65-110) mg/dL Random Glucose (75-110) mg/dL Calcium (8.6-10.4) mg/dl Phosphorus (2.5-4.5) mg/dL Magnesium (1.6-2.3) mg/dL Total Bilirubin (0.2-1.3) mg/dL AST (17-59) U/L ALT (21-72) U/L Alkaline Phosphatase (38-126) U/L C-Reactive Protein (0.0-9.9) mg/L Total Protein (6.3-8.3) g/dL Albumin (3.5-5.0) g/dL Globulin (2.2-3.9) gm/dL Albumin/Globulin Ratio (1.0-2.1) Laboratory Results - last 24 hr 12/15/17 12/15/17 12/15/17 09:43 09:43 12:24 WBC RBC Hgb Hct MCV MCH MCHC RDW Plt Count MPV Neut % (Auto) Lymph % (Auto) [place] % (Auto) Eos % (Auto) Baso % (Auto) Neut # (Auto) Lymph # (Auto) [place] # (Auto) Eos # (Auto) Baso # (Auto) ESR 60 H PT INR APTT 31 Sodium Potassium Chloride Carbon Dioxide Anion Gap BUN Creatinine Est GFR ( Amer) Est GFR (Non-Af Amer) POC Glucose (mg/dL) Random Glucose Calcium Phosphorus Magnesium Total Bilirubin AST ALT Alkaline Phosphatase C-Reactive Protein 77.10 H Total Protein Albumin Globulin Albumin/Globulin Ratio 12/15/17 12/15/17 12/15/17 13:53 16:02 16:04 WBC RBC Hgb Hct MCV MCH MCHC RDW Plt Count MPV Neut % (Auto) Lymph % (Auto) [place] % (Auto) Eos % (Auto) Baso % (Auto) Neut # (Auto) Lymph # (Auto) [place] # (Auto) Eos # (Auto) Baso # (Auto) ESR PT INR APTT Sodium Potassium Chloride Carbon Dioxide Anion Gap BUN Creatinine Est GFR ( Amer) Est GFR (Non-Af Amer) POC Glucose (mg/dL) 93 69 74 Random Glucose Calcium Phosphorus Magnesium Total Bilirubin AST ALT Alkaline Phosphatase C-Reactive Protein Total Protein Albumin Globulin Albumin/Globulin Ratio 12/15/17 12/15/17 12/16/17 18:12 21:13 03:18 WBC 7.8 RBC 3.45 L Hgb 10.1 L Hct 29.8 L MCV 86.3 MCH 29.2 MCHC 33.8 RDW 13.7 Plt Count 170 MPV 10.9 Neut % (Auto) 68.6 Lymph % (Auto) 14.7 L [place] % (Auto) 11.4 H Eos % (Auto) 4.3 H Baso % (Auto) 1.0 Neut # (Auto) 5.3 Lymph # (Auto) 1.1 [place] # (Auto) 0.9 H Eos # (Auto) 0.3 Baso # (Auto) 0.1 ESR PT INR APTT 34 Sodium Potassium Chloride Carbon Dioxide Anion Gap BUN Creatinine Est GFR ( Amer) Est GFR (Non-Af Amer) POC Glucose (mg/dL) 109 Random Glucose Calcium Phosphorus Magnesium Total Bilirubin AST ALT Alkaline Phosphatase C-Reactive Protein Total Protein Albumin Globulin Albumin/Globulin Ratio 12/16/17 12/16/17 12/16/17 03:18 03:18 07:23 WBC RBC Hgb Hct MCV MCH MCHC RDW Plt Count MPV Neut % (Auto) Lymph % (Auto) [place] % (Auto) Eos % (Auto) Baso % (Auto) Neut # (Auto) Lymph # (Auto) [place] # (Auto) Eos # (Auto) Baso # (Auto) ESR PT 17.1 H INR 1.6 APTT 99 H D Sodium 145 Potassium 3.6 Chloride 111 H Carbon Dioxide 27 Anion Gap 12 BUN 21 H Creatinine 1.0 Est GFR ( Amer) > 60 Est GFR (Non-Af Amer) > 60 POC Glucose (mg/dL) 67 Random Glucose 70 L Calcium 7.7 L Phosphorus 2.6 Magnesium 1.9 Total Bilirubin 0.9 AST 37 ALT 32 Alkaline Phosphatase 44 C-Reactive Protein Total Protein 5.7 L Albumin 2.4 L Globulin 3.3 Albumin/Globulin Ratio 0.7 L 12/16/17 07:25 WBC RBC Hgb Hct MCV MCH MCHC RDW Plt Count MPV Neut % (Auto) Lymph % (Auto) [place] % (Auto) Eos % (Auto) Baso % (Auto) Neut # (Auto) Lymph # (Auto) [place] # (Auto) Eos # (Auto) Baso # (Auto) ESR PT INR APTT Sodium Potassium Chloride Carbon Dioxide Anion Gap BUN Creatinine Est GFR ( Amer) Est GFR (Non-Af Amer) POC Glucose (mg/dL) 72 Random Glucose Calcium Phosphorus Magnesium Total Bilirubin AST ALT Alkaline Phosphatase C-Reactive Protein Total Protein Albumin Globulin Albumin/Globulin [facility] Progress Note - Nutrition Nutrition: Nutrition Category Date Time Status Heart Healthy Diet [DIET] Diets 12/13/17 Dinner Active Assessment/Plan - Assessment and Plan (Free Text) Plan: PAtient seen and examiend at bedside. Patient has no fevers, no signs of hypotension, tolerating oral diet. Patient being evalauted for r/o TB. Above resident note reveiwed and verified. - Date & Time Date: 12/15/17 Time: 08:28
[2017-12-15] MEDS: Piperacillin/Tazobact 3.375 GM in Sodium Chloride 100 ML IVPB SCH ×2 (13:36→18:00)
--- NOTE | 2017-12-15 18:35 | CARD ---
APPROVED REPORT EKG Measurement Heart [id number] <Conclusion> Normal sinus rhythm Normal ECG
[2017-12-15] MEDS: Magnesium Hydroxide Susp 30 ml UD PO SCH (21:43)
--- NOTE | 2017-12-15 22:16 | CP.PCM.PN ---
Subjective - Date & Time of Evaluation Date of Evaluation: 12/15/17 Time of Evaluation: 18:00 - Subjective Subjective: Patient was seen and examined at bedside. No acute complaints. Still being ruled out for TB Physical Examination - Physical Exam Head: Positive for: Atraumatic, Normocephalic Pupils: Positive for: PERRL Extroacular Muscles: Positive for: EOMI Conjunctiva: Positive for: Normal Mouth: Positive for: Moist Mucous Membranes Neck: Positive for: Normal Range of Motion Respiratory/Chest: Positive for: Decreased Breath Sounds Cardiovascular: Positive for: Tachycardic Abdomen: Positive for: Tenderness, Normal Bowel Sounds Upper Extremity: Positive for: Normal Inspection, NORMAL PULSES, Neurovascularly Intact, Capillary Refill < 2s Lower Extremity: Positive for: Normal Inspection, NORMAL PULSES, Neurovascularly Intact Neurological: Positive for: GCS=15, CN II-XII Intact Skin: Positive for: Warm, Dry, Rashes, Normal Color Psychiatric: Positive for: Alert, Oriented x 3, Normal Insight Objective - Vital Signs/Intake and Output Vital Signs (last 24 hours): Temp Pulse Resp BP Pulse Ox 98.6 F 68 22 116/63 100 12/15/17 16:00 12/15/17 18:00 12/15/17 16:00 12/15/17 16:00 12/15/17 16:00 Intake and Output: 12/15/17 12/16/17 18:59 06:59 Intake Total 1148.0 16.3 Output Total 500 Balance 648.0 16.3 - Medications Medications: Current Medications Acetaminophen (Tylenol 325mg Tab) 650 mg PO Q4H PRN PRN Reason: Fever >100.4 F Acetylcysteine (Acetylcysteine 20%) 4 ml INH Q6H PRN PRN Reason: Cough and congestion Last Admin: 12/15/17 08:16 Dose: 4 ml Albuterol/Ipratropium (Duoneb 3 Mg/0.5 Mg (3 Ml) Ud) 3 ml INH RQ6 [facility] Last Admin: 12/15/17 20:32 Dose: Not Given Albuterol/Ipratropium (Duoneb 3 Mg/0.5 Mg (3 Ml) Ud) 3 ml INH RQ4 PRN PRN Reason: Cough Aspirin (Ecotrin) 81 mg PO DAILY [facility] Last Admin: 12/15/17 10:12 Dose: 81 mg Clopidogrel Bisulfate (Plavix) 75 mg PO DAILY [facility] Last Admin: 12/15/17 10:14 Dose: 75 mg Famotidine (Pepcid) 20 mg PO DAILY [facility] Last Admin: 12/15/17 10:14 Dose: 20 mg Finasteride (Proscar) 5 mg PO DAILY [facility] Last Admin: 12/15/17 10:16 Dose: 5 mg Azithromycin 500 mg/ Sodium (Chloride) 250 mls @ 250 mls/hr IVPB Q24H [facility] PRN Reason: Protocol Last Admin: 12/15/17 12:06 Dose: 250 mls/hr Piperacillin Sod/Tazobactam (Sod 3.375 gm/ Sodium Chloride) 100 mls @ 200 mls/ hr IVPB Q6H [facility] PRN Reason: Protocol Last Admin: 12/15/17 18:00 Dose: 200 mls/hr Heparin Sodium/Sodium Chloride (Heparin 50230 Units/250ml 1/2 Normal Saline) 25 ,000 units in 250 mls @ 17.962 mls/hr IV .[id number] PRN; Protocol; 22 UNITS/KG/HR PRN Reason: PROTOCOL Last Admin: 12/15/17 20:51 Dose: 22 units/kg/hr, 17.962 mls/hr Losartan Potassium (Cozaar) 25 mg PO DAILY [facility] Last Admin: 12/15/17 10:09 Dose: 25 mg Magnesium Hydroxide (Milk Of Magnesia) 30 ml PO HS [facility] Last Admin: 12/15/17 21:43 Dose: 30 ml Metoprolol Succinate (Toprol Xl) 12.5 mg PO DAILY [facility] Last Admin: 12/15/17 10:10 Dose: 12.5 mg Saccharomyces Boulardii (Florastor) 250 mg PO BID [facility] Last Admin: 12/15/17 17:35 Dose: 250 mg Tamsulosin HCl (Flomax) 0.4 mg PO DAILY [facility] Last Admin: 12/15/17 10:16 Dose: 0.4 mg Valproate Sodium (Depakene Cap) 250 mg PO BID [facility] Last Admin: 12/15/17 17:35 Dose: 250 mg Vitamin A (Vitamin A & D Oint Ud Foilpak) 4 ea TOP BID [facility] Last Admin: 12/15/17 17:35 Dose: 4 ea - Labs Labs: 12/15/17 06:24 12/15/17 06:24 PT 16.3 SECONDS (9.7-12.2) H 12/13/17 12:18 INR 1.5 12/13/17 12:18 APTT 34 SECONDS (21-34) 12/15/17 18:12 Assessment and Plan - Assessment and Plan (Free Text) Assessment: 72 year old male, with PMHx of Anxiety, Asthma, BPH, Bipolar Disorder, CHF, COPD , Depression, HTN, hypercholesterolemia, CKD, and Schizophrenia, presented to the ED on 12/13 after being found unresponsive following an unwitnessed fall. Patient found to have RUL PNA r/o TB, NSTEMI. Plan: Neuro: GCS 15 Cardio: A: NSTEMI Cath after TB ruled out - Troponin: 0.81 --> 2.12 --> 8.31 - EKG: No ST changes , q waves or t waves noted - Asa, plavix, Cozaar, Metoprolol, heparin drip A: HF Diastolic Dysfunction LVEF 55% A: HTN - Cozaar, Metoprolol Pulm: A: RUL PNA Pulmonary consulted - Dr. Perez - CXR: Peripheral right upper lobe infiltrate. - CT Chest: A mild right upper lobe infiltrate is appreciated abutting the lateral margins of the minor and major fissures. Limited air bronchograms are identified in this infiltrate and follow-up CT is advised following therapy to exclude underlying lesion. Bilateral lower lobe compressive atelectasis is related to bilateral pleural effusions, [id number] at the right and minimal at the left. Trace effusion is seen within the right major fissure. Elevation of the left hemidiaphragm is associated with compressive atelectasis at the left lower lobe base as well. No pneumothorax bilaterally. Central airways appear clear. Mild mediastinal lymphadenopathy is appreciate including a sub carinal lymph node measuring 2.0 x 1.1 cm and inferior right paratracheal lymph node measuring 2.0 x 0.8 cm.Cholelithiasis. 2.0 cm cyst right lobe ingest the gallbladder fossa laterally. 5.2 cm exophytic cyst left lobe liver inferolaterally within nearly adjacent cysts somewhat more cephalad and lateral measuring 1.9 cm greatest dimension. Finally, 1.7 cm cyst upper pole left kidney. - ?? TB --> r/o AFBs x3, Quant, PPD - Azithromycin 500Q24, Rocephin Daily 12/14 A: Asthma A: COPD A: Hypercholesterolemia : A: BPH - Resumed proscar, flomax Psych: A: Schizophrenia - Resumed Depakene Prophylaxis - Pepcid - SCDs, Heparin Drip
--- NOTE | 2017-12-15 23:01 | CP.PCM.PN ---
Subjective - Date & Time of Evaluation Date of Evaluation: 12/15/17 Time of Evaluation: 19:40 - Subjective Subjective: Pt seen and examined at bedside, remains in ICU isolation cardiac status stable, UTI present antibiotics switched to zosyn right lung upper lobe infiltrate present and we are working up to rule ot pneumonia, TB Objective - Vital Signs/Intake and Output Vital Signs (last 24 hours): Temp Pulse Resp BP Pulse Ox 98.6 F 68 22 116/63 100 12/15/17 16:00 12/15/17 18:00 12/15/17 16:00 12/15/17 16:00 12/15/17 16:00 Intake and Output: 12/15/17 12/16/17 18:59 06:59 Intake Total 1148.0 190.3 Output Total 500 Balance 648.0 190.3 - Medications Medications: Current Medications Acetaminophen (Tylenol 325mg Tab) 650 mg PO Q4H PRN PRN Reason: Fever >100.4 F Acetylcysteine (Acetylcysteine 20%) 4 ml INH Q6H PRN PRN Reason: Cough and congestion Last Admin: 12/15/17 08:16 Dose: 4 ml Albuterol/Ipratropium (Duoneb 3 Mg/0.5 Mg (3 Ml) Ud) 3 ml INH RQ6 [facility] Last Admin: 12/15/17 20:32 Dose: Not Given Albuterol/Ipratropium (Duoneb 3 Mg/0.5 Mg (3 Ml) Ud) 3 ml INH RQ4 PRN PRN Reason: Cough Aspirin (Ecotrin) 81 mg PO DAILY [facility] Last Admin: 12/15/17 10:12 Dose: 81 mg Clopidogrel Bisulfate (Plavix) 75 mg PO DAILY [facility] Last Admin: 12/15/17 10:14 Dose: 75 mg Famotidine (Pepcid) 20 mg PO DAILY [facility] Last Admin: 12/15/17 10:14 Dose: 20 mg Finasteride (Proscar) 5 mg PO DAILY [facility] Last Admin: 12/15/17 10:16 Dose: 5 mg Azithromycin 500 mg/ Sodium (Chloride) 250 mls @ 250 mls/hr IVPB Q24H [facility]ANSHY[facility] PRN Reason: Protocol Last Admin: 12/15/17 12:06 Dose: 250 mls/hr Piperacillin Sod/Tazobactam (Sod 3.375 gm/ Sodium Chloride) 100 mls @ 200 mls/ hr IVPB Q6H [facility] PRN Reason: Protocol Last Admin: 12/15/17 18:00 Dose: 200 mls/hr Heparin Sodium/Sodium Chloride (Heparin 43848 Units/250ml 1/2 Normal Saline) 25 ,000 units in 250 mls @ 17.962 mls/hr IV .[id number] PRN; Protocol; 22 UNITS/KG/HR PRN Reason: PROTOCOL Last Admin: 12/15/17 20:51 Dose: 22 units/kg/hr, 17.962 mls/hr Losartan Potassium (Cozaar) 25 mg PO DAILY [facility] Last Admin: 12/15/17 10:09 Dose: 25 mg Magnesium Hydroxide (Milk Of Magnesia) 30 ml PO HS [facility] Last Admin: 12/15/17 21:43 Dose: 30 ml Metoprolol Succinate (Toprol Xl) 12.5 mg PO DAILY [facility] Last Admin: 12/15/17 10:10 Dose: 12.5 mg Saccharomyces Boulardii (Florastor) 250 mg PO BID [facility] Last Admin: 12/15/17 17:35 Dose: 250 mg Tamsulosin HCl (Flomax) 0.4 mg PO DAILY [facility] Last Admin: 12/15/17 10:16 Dose: 0.4 mg Valproate Sodium (Depakene Cap) 250 mg PO BID [facility] Last Admin: 12/15/17 17:35 Dose: 250 mg Vitamin A (Vitamin A & D Oint Ud Foilpak) 4 ea TOP BID [facility] Last Admin: 12/15/17 17:35 Dose: 4 ea - Labs Labs: 12/15/17 06:24 12/15/17 06:24 PT 16.3 SECONDS (9.7-12.2) H 12/13/17 12:18 INR 1.5 12/13/17 12:18 APTT 34 SECONDS (21-34) 12/15/17 18:12 - Constitutional Appears: No Acute Distress - Head Exam Head Exam: ATRAUMATIC, NORMAL INSPECTION, NORMOCEPHALIC - Eye Exam Eye Exam: EOMI, Normal appearance, PERRL Pupil Exam: NORMAL ACCOMODATION, PERRL - Respiratory Exam Respiratory Exam: Decreased Breath Sounds, Rales, Rhonchi - Cardiovascular Exam Cardiovascular Exam: REGULAR RHYTHM, +S1, +S2. absent: Murmur - GI/Abdominal Exam GI & Abdominal Exam: Soft, Normal Bowel Sounds. absent: Tenderness Assessment and Plan (1) Non-STEMI (non-ST elevated myocardial infarction) Status: Acute (2) BPH (benign prostatic hyperplasia) Status: Acute (3) Hypertension Status: Acute (4) S/P cystoscopy Status: Resolved (5) Tracheobronchitis Status: Acute
[2017-12-16] MEDS: Piperacillin/Tazobact 3.375 GM in Sodium Chloride 100 ML IVPB SCH ×4 (00:24→19:43)
[2017-12-16] MEDS: Albuterol-Ipratrop 3 mg / 0.5 (3 ml) UD INH SCH ×3 (01:26→20:15)
[2017-12-16 03:23] LABS: BASO # 0.1 K/uL (0.0-0.2); LYMPH # 1.1 K/uL (1.0-4.3); MONO # 0.9 K/uL (0.0-0.8)
[2017-12-16 03:27] LABS: EOS # 0.3 K/uL (0.0-0.7); EOS % 4.3 % (0.0-4.0); HEMOGLOBIN 10.1 g/dL (12.0-18.0); LYMPH % 14.7 % (20.0-40.0); MEAN CELL VOLUME 86.3 fL (80.0-94.0); MEAN CORPUSCULAR HEMOGLOBIN 29.2 pg (27.0-31.0); MEAN CORPUSCULAR HGB CONC 33.8 g/dL (33.0-37.0); MEAN PLATELET VOLUME 10.9 fL (7.2-11.7); MONO % 11.4 % (0.0-10.0); NEUT # 5.3 K/uL (1.8-7.0); NEUT % 68.6 % (50.0-75.0); RBC 3.45 Mil/uL (4.40-5.90); RED CELL DISTRIBUTION WIDTH 13.7 % (11.5-14.5); WHITE BLOOD COUNT 7.8 K/uL (4.8-10.8)
[2017-12-16 03:30] LABS: INR 1.6; PROTHROMBIN TIME 17.1 SECONDS (9.7-12.2)
[2017-12-16 03:34] LABS: ALB/GLOB RATIO 0.7 (1.0-2.1); ALBUMIN 2.4 g/dL (3.5-5.0); ALT/SGPT 32 U/L (21-72); AST/SGOT 37 U/L (17-59); BLOOD UREA NITROGEN 21 mg/dL (9-20); CALCIUM 7.7 mg/dl (8.6-10.4); GFR AFRICAN-AMERICAN > 60; GFR NON-AFRICAN AMERICAN > 60
--- NOTE | 2017-12-16 09:18 | CP.PCM.PN ---
Subjective - Date & Time of Evaluation Date of Evaluation: 12/16/17 Time of Evaluation: 09:14 - Subjective Subjective: Pulmonary Follow up Covering Dr. Perez The Patient was seen and examined at the bedside, Medical records reviewed, and management issues were discussed and formulated with the house staff. Events reviewed 72 year old male, with PMHx of Anxiety, Asthma, BPH, Bipolar Disorder, CHF, COPD , Depression, HTN, hypercholesterolemia, CKD, and Schizophrenia, presented to the ED on 12/13 after being found unresponsive following an unwitnessed fall. [facility] . In ED, patient was found to have peripheral right upper lobe infiltrate and right small pleural effusion on CXR. patient transferred to ICUfor elevated Trop Respiratory isolation for right upper lung infiltrate pending sputum AFB continue antibiotics with Zithromax and Piperacillin Sod/Tazobactam 3.375 gm IVPB Q6H Pt Alert and oriented Denies any chest pain, SOB or Palpitations Afebrile, NSR on the monitor Possible cardiac cath Continue Antibiotics patient on airborne isolation, being ruled out for TB, Sputum AFB still pending Continue Nabulizer treatment - CT Chest: A mild right upper lobe infiltrate is appreciated abutting the lateral margins of the minor and major fissures. Limited air bronchograms are identified in this infiltrate and follow-up CT is advised following therapy to exclude underlying lesion. Bilateral lower lobe compressive atelectasis is related to bilateral pleural effusions, [id number] at the right and minimal at the left. Trace effusion is seen within the right major fissure. Elevation of the left hemidiaphragm is associated with compressive atelectasis at the left lower lobe base as well. No pneumothorax bilaterally. Central airways appear clear. Mild mediastinal lymphadenopathy is appreciate including a sub carinal lymph node measuring 2.0 x 1.1 cm and inferior right paratracheal lymph node measuring 2.0 x 0.8 cm.Cholelithiasis. 2.0 cm cyst right lobe ingest the gallbladder fossa laterally. 5.2 cm exophytic cyst left lobe liver inferolaterally within nearly adjacent cysts somewhat more cephalad and lateral measuring 1.9 cm greatest dimension. Finally, 1.7 cm cyst upper pole left kidney. Objective - Vital Signs/Intake and Output Vital Signs (last 24 hours): Temp Pulse Resp BP Pulse Ox 98.6 F 68 22 116/63 100 12/15/17 16:00 12/16/17 01:00 12/15/17 16:00 12/15/17 16:00 12/15/17 16:00 Intake and Output: 12/16/17 12/16/17 06:59 18:59 Intake Total 499.6 16.3 Output Total 550 Balance 499.6 -533.7 - Medications Medications: Current Medications Acetaminophen (Tylenol 325mg Tab) 650 mg PO Q4H PRN PRN Reason: Fever >100.4 F Acetylcysteine (Acetylcysteine 20%) 4 ml INH Q6H PRN PRN Reason: Cough and congestion Last Admin: 12/15/17 08:16 Dose: 4 ml Albuterol/Ipratropium (Duoneb 3 Mg/0.5 Mg (3 Ml) Ud) 3 ml INH RQ6 [facility] Last Admin: 12/16/17 08:13 Dose: Not Given Albuterol/Ipratropium (Duoneb 3 Mg/0.5 Mg (3 Ml) Ud) 3 ml INH RQ4 PRN PRN Reason: Cough Aspirin (Ecotrin) 81 mg PO DAILY [facility] Last Admin: 12/15/17 10:12 Dose: 81 mg Clopidogrel Bisulfate (Plavix) 75 mg PO DAILY [facility] Last Admin: 12/15/17 10:14 Dose: 75 mg Famotidine (Pepcid) 20 mg PO DAILY [facility] Last Admin: 12/15/17 10:14 Dose: 20 mg Finasteride (Proscar) 5 mg PO DAILY [facility] Last Admin: 12/15/17 10:16 Dose: 5 mg Azithromycin 500 mg/ Sodium (Chloride) 250 mls @ 250 mls/hr IVPB Q24H [facility] PRN Reason: Protocol Last Admin: 12/15/17 12:06 Dose: 250 mls/hr Piperacillin Sod/Tazobactam (Sod 3.375 gm/ Sodium Chloride) 100 mls @ 200 mls/ hr IVPB Q6H [facility] PRN Reason: Protocol Last Admin: 12/16/17 06:49 Dose: 200 mls/hr Heparin Sodium/Sodium Chloride (Heparin 77665 Units/250ml 1/2 Normal Saline) 25 ,000 units in 250 mls @ 17.962 mls/hr IV .[id number] PRN; Protocol; 22 UNITS/KG/HR PRN Reason: PROTOCOL Last Titration: 12/16/17 03:30 Dose: 20 units/kg/hr, 16.329 mls/hr Losartan Potassium (Cozaar) 25 mg PO DAILY [facility] Last Admin: 12/15/17 10:09 Dose: 25 mg Magnesium Hydroxide (Milk Of Magnesia) 30 ml PO HS [facility] Last Admin: 12/15/17 21:43 Dose: 30 ml Metoprolol Succinate (Toprol Xl) 12.5 mg PO DAILY [facility] Last Admin: 12/15/17 10:10 Dose: 12.5 mg Saccharomyces Boulardii (Florastor) 250 mg PO BID [facility] Last Admin: 12/15/17 17:35 Dose: 250 mg Tamsulosin HCl (Flomax) 0.4 mg PO DAILY [facility] Last Admin: 12/15/17 10:16 Dose: 0.4 mg Valproate Sodium (Depakene Cap) 250 mg PO BID [facility] Last Admin: 12/15/17 17:35 Dose: 250 mg Vitamin A (Vitamin A & D Oint Ud Foilpak) 4 ea TOP BID [facility] Last Admin: 12/15/17 17:35 Dose: 4 ea - Labs Labs: 12/16/17 03:18 12/16/17 03:18 PT 17.1 SECONDS (9.7-12.2) H 12/16/17 03:18 INR 1.6 12/16/17 03:18 APTT 99 SECONDS (21-34) H D 12/16/17 03:18 - Constitutional Appears: Well - Head Exam Head Exam: ATRAUMATIC, NORMAL INSPECTION - Eye Exam Pupil Exam: PERRL - ENT Exam ENT Exam: Mucous Membranes Moist - Respiratory Exam Respiratory Exam: Prolonged Expiratory Phase, Rhonchi. absent: Accessory Muscle Use, Wheezes - Cardiovascular Exam Cardiovascular Exam: REGULAR RHYTHM, RRR, +S1, +S2. absent: JVD - GI/Abdominal Exam GI & Abdominal Exam: Soft, Normal Bowel Sounds. absent: Distended - Extremities Exam Extremities Exam: Normal Capillary Refill, Pedal Edema, Tenderness. absent: Normal Inspection (healed left heel ulcer ) - Neurological Exam Neurological Exam: Alert, Altered Assessment and Plan (1) Pneumonia involving right lung Assessment & Plan: Patient being evaluated for r/o TB Patient on airborne contact isolation Continue current Antibiotics Sputum AFB pending. Status: Acute (2) Non-STEMI (non-ST elevated myocardial infarction) Status: Acute (3) Tracheobronchitis Status: Acute (4) COPD (chronic obstructive pulmonary disease) Status: Acute
[2017-12-16] MEDS: Saccharomyces Boulardi 250 mg Cap PO SCH ×2 (10:21→17:37)
[2017-12-16] MEDS: Metoprolol Succinate 12.5 mg XL Tab PO SCH (10:23)
[2017-12-16] MEDS: Azithromycin 500 MG in Sodium Chloride 0.9% 250 ML IVPB SCH (12:06)
[2017-12-16] MEDS: Vitamins A & D Oint UD Foilpak TOP SCH ×2 (12:08→17:37)
[2017-12-16] MEDS: Heparin25000 units/250ml 1/2NS 25,000 UNITS/250 ML BAG IV PRN ×2 (13:41→22:17)
--- NOTE | 2017-12-16 15:35 | CP.PCM.PN ---
Subjective - Date & Time of Evaluation Date of Evaluation: 12/16/17 Time of Evaluation: 09:00 - Subjective Subjective: Pt seen and evalauted, E.coli in urine, on antibiotics (zosyn) for UTI, sputum AFB pending. Pt is in no acute distress, afebrile. denies any chest pain, sob, s/p OR on heparin Objective - Vital Signs/Intake and Output Vital Signs (last 24 hours): Temp Pulse Resp BP Pulse Ox 97.7 F 74 18 112/52 L 96 12/16/17 11:30 12/16/17 11:30 12/16/17 11:30 12/16/17 11:30 12/16/17 11:30 Intake and Output: 12/16/17 12/16/17 06:59 18:59 Intake Total 499.6 192.8 Output Total 770 Balance 499.6 -577.2 - Medications Medications: Current Medications Acetaminophen (Tylenol 325mg Tab) 650 mg PO Q4H PRN PRN Reason: Fever >100.4 F Acetylcysteine (Acetylcysteine 20%) 4 ml INH Q6H PRN PRN Reason: Cough and congestion Last Admin: 12/15/17 08:16 Dose: 4 ml Albuterol/Ipratropium (Duoneb 3 Mg/0.5 Mg (3 Ml) Ud) 3 ml INH RQ6 [facility] Last Admin: 12/16/17 08:13 Dose: Not Given Albuterol/Ipratropium (Duoneb 3 Mg/0.5 Mg (3 Ml) Ud) 3 ml INH RQ4 PRN PRN Reason: Cough Aspirin (Ecotrin) 81 mg PO DAILY [facility] Last Admin: 12/16/17 10:23 Dose: 81 mg Clopidogrel Bisulfate (Plavix) 75 mg PO DAILY [facility] Last Admin: 12/16/17 10:21 Dose: 75 mg Famotidine (Pepcid) 20 mg PO DAILY [facility] Last Admin: 12/16/17 10:21 Dose: 20 mg Finasteride (Proscar) 5 mg PO DAILY [facility] Last Admin: 12/16/17 10:24 Dose: 5 mg Azithromycin 500 mg/ Sodium (Chloride) 250 mls @ 250 mls/hr IVPB Q24H [facility] PRN Reason: Protocol Last Admin: 12/16/17 12:06 Dose: 250 mls/hr Piperacillin Sod/Tazobactam (Sod 3.375 gm/ Sodium Chloride) 100 mls @ 200 mls/ hr IVPB Q6H [facility] PRN Reason: Protocol Last Admin: 12/16/17 13:35 Dose: 200 mls/hr Heparin Sodium/Sodium Chloride (Heparin 71215 Units/250ml 1/2 Normal Saline) 25 ,000 units in 250 mls @ 14.696 mls/hr IV .Q17H1M PRN; Protocol; 18 UNITS/KG/HR PRN Reason: PROTOCOL Last Admin: 12/16/17 13:41 Dose: 18 units/kg/hr, 14.696 mls/hr Losartan Potassium (Cozaar) 25 mg PO DAILY [facility] Last Admin: 12/16/17 10:21 Dose: 25 mg Magnesium Hydroxide (Milk Of Magnesia) 30 ml PO HS [facility] Last Admin: 12/15/17 21:43 Dose: 30 ml Metoprolol Succinate (Toprol Xl) 12.5 mg PO DAILY [facility] Last Admin: 12/16/17 10:23 Dose: 12.5 mg Saccharomyces Boulardii (Florastor) 250 mg PO BID [facility] Last Admin: 12/16/17 10:21 Dose: 250 mg Tamsulosin HCl (Flomax) 0.4 mg PO DAILY [facility] Last Admin: 12/16/17 10:21 Dose: 0.4 mg Valproate Sodium (Depakene Cap) 250 mg PO BID [facility] Last Admin: 12/16/17 10:22 Dose: 250 mg Vitamin A (Vitamin A & D Oint Ud Foilpak) 4 ea TOP BID [facility] Last Admin: 12/16/17 12:08 Dose: 4 ea - Labs Labs: 12/16/17 03:18 12/16/17 03:18 PT 17.1 SECONDS (9.7-12.2) H 12/16/17 03:18 INR 1.6 12/16/17 03:18 APTT 96 SECONDS (21-34) H 12/16/17 11:11 - Constitutional Appears: No Acute Distress - Head Exam Head Exam: ATRAUMATIC, NORMAL INSPECTION, NORMOCEPHALIC - Eye Exam Eye Exam: EOMI, Normal appearance, PERRL Pupil Exam: NORMAL ACCOMODATION, PERRL - ENT Exam ENT Exam: Mucous Membranes Moist, Normal Exam - Respiratory Exam Respiratory Exam: Decreased Breath Sounds, Rales, Rhonchi - Cardiovascular Exam Cardiovascular Exam: REGULAR RHYTHM, +S1, +S2. absent: Murmur - GI/Abdominal Exam GI & Abdominal Exam: Soft, Normal Bowel Sounds. absent: Tenderness Assessment and Plan (1) Non-STEMI (non-ST elevated myocardial infarction) Status: Acute (2) BPH (benign prostatic hyperplasia) Status: Acute (3) Hypertension Status: Acute (4) S/P cystoscopy Status: Resolved (5) Tracheobronchitis Status: Acute (6) UTI (urinary tract infection) Status: Acute
--- NOTE | 2017-12-16 20:54 | CP.PCM.PN ---
Subjective - Date & Time of Evaluation Date of Evaluation: 12/16/17 Time of Evaluation: 14:10 - Subjective Subjective: Patient was seen and examined at bedside. No acute complaints. Still being ruled out for TB Physical Examination - Physical Exam Head: Positive for: Atraumatic, Normocephalic Pupils: Positive for: PERRL Extroacular Muscles: Positive for: EOMI Conjunctiva: Positive for: Normal Mouth: Positive for: Moist Mucous Membranes Neck: Positive for: Normal Range of Motion Respiratory/Chest: Positive for: Decreased Breath Sounds Cardiovascular: Positive for: Tachycardic Abdomen: Positive for: Tenderness, Normal Bowel Sounds Upper Extremity: Positive for: Normal Inspection, NORMAL PULSES, Neurovascularly Intact, Capillary Refill < 2s Lower Extremity: Positive for: Normal Inspection, NORMAL PULSES, Neurovascularly Intact Neurological: Positive for: GCS=15, CN II-XII Intact Skin: Positive for: Warm, Dry, Rashes, Normal Color Psychiatric: Positive for: Alert, Oriented x 3, Normal Insight Objective - Vital Signs/Intake and Output Vital Signs (last 24 hours): Temp Pulse Resp BP Pulse Ox 98.1 F 75 18 117/71 95 12/16/17 15:00 12/16/17 15:00 12/16/17 15:00 12/16/17 15:00 12/16/17 15:00 Intake and Output: 12/16/17 12/17/17 18:59 06:59 Intake Total 192.8 Output Total 770 Balance -577.2 - Medications Medications: Current Medications Acetaminophen (Tylenol 325mg Tab) 650 mg PO Q4H PRN PRN Reason: Fever >100.4 F Acetylcysteine (Acetylcysteine 20%) 4 ml INH Q6H PRN PRN Reason: Cough and congestion Last Admin: 12/15/17 08:16 Dose: 4 ml Albuterol/Ipratropium (Duoneb 3 Mg/0.5 Mg (3 Ml) Ud) 3 ml INH RQ6 [facility] Last Admin: 12/16/17 20:15 Dose: Not Given Albuterol/Ipratropium (Duoneb 3 Mg/0.5 Mg (3 Ml) Ud) 3 ml INH RQ4 PRN PRN Reason: Cough Aspirin (Ecotrin) 81 mg PO DAILY [facility] Last Admin: 12/16/17 10:23 Dose: 81 mg Clopidogrel Bisulfate (Plavix) 75 mg PO DAILY [facility] Last Admin: 12/16/17 10:21 Dose: 75 mg Famotidine (Pepcid) 20 mg PO DAILY [facility] Last Admin: 12/16/17 10:21 Dose: 20 mg Finasteride (Proscar) 5 mg PO DAILY [facility] Last Admin: 12/16/17 10:24 Dose: 5 mg Azithromycin 500 mg/ Sodium (Chloride) 250 mls @ 250 mls/hr IVPB Q24H [facility] PRN Reason: Protocol Last Admin: 12/16/17 12:06 Dose: 250 mls/hr Piperacillin Sod/Tazobactam (Sod 3.375 gm/ Sodium Chloride) 100 mls @ 200 mls/ hr IVPB Q6H [facility] PRN Reason: Protocol Last Admin: 12/16/17 13:35 Dose: 200 mls/hr Heparin Sodium/Sodium Chloride (Heparin 29268 Units/250ml 1/2 Normal Saline) 25 ,000 units in 250 mls @ 14.696 mls/hr IV .Q17H1M PRN; Protocol; 18 UNITS/KG/HR PRN Reason: PROTOCOL Last Admin: 12/16/17 13:41 Dose: 18 units/kg/hr, 14.696 mls/hr Losartan Potassium (Cozaar) 25 mg PO DAILY [facility] Last Admin: 12/16/17 10:21 Dose: 25 mg Magnesium Hydroxide (Milk Of Magnesia) 30 ml PO HS [facility] Last Admin: 12/15/17 21:43 Dose: 30 ml Metoprolol Succinate (Toprol Xl) 12.5 mg PO DAILY [facility] Last Admin: 12/16/17 10:23 Dose: 12.5 mg Saccharomyces Boulardii (Florastor) 250 mg PO BID [facility] Last Admin: 12/16/17 17:37 Dose: 250 mg Tamsulosin HCl (Flomax) 0.4 mg PO DAILY [facility] Last Admin: 12/16/17 10:21 Dose: 0.4 mg Valproate Sodium (Depakene Cap) 250 mg PO BID [facility] Last Admin: 12/16/17 17:37 Dose: 250 mg Vitamin A (Vitamin A & D Oint Ud Foilpak) 4 ea TOP BID [facility] Last Admin: 12/16/17 17:37 Dose: 4 ea - Labs Labs: 12/16/17 03:18 12/16/17 03:18 PT 17.1 SECONDS (9.7-12.2) H 12/16/17 03:18 INR 1.6 12/16/17 03:18 APTT 88 SECONDS (21-34) H D 12/16/17 19:54 Assessment and Plan - Assessment and Plan (Free Text) Assessment: 72 year old male, with PMHx of Anxiety, Asthma, BPH, Bipolar Disorder, CHF, COPD , Depression, HTN, hypercholesterolemia, CKD, and Schizophrenia, presented to the ED on 12/13 after being found unresponsive following an unwitnessed fall. Patient found to have RUL PNA r/o TB, NSTEMI. Plan: Neuro: GCS 15 Cardio: A: NSTEMI Cath after TB ruled out - Troponin: 0.81 --> 2.12 --> 8.31 - EKG: No ST changes , q waves or t waves noted - Asa, plavix, Cozaar, Metoprolol, heparin drip A: HF Diastolic Dysfunction LVEF 55% A: HTN - Cozaar, Metoprolol Pulm: A: RUL PNA Pulmonary consulted - Dr. Perez - CXR: Peripheral right upper lobe infiltrate. - CT Chest: A mild right upper lobe infiltrate is appreciated abutting the lateral margins of the minor and major fissures. Limited air bronchograms are identified in this infiltrate and follow-up CT is advised following therapy to exclude underlying lesion. Bilateral lower lobe compressive atelectasis is related to bilateral pleural effusions, [id number] at the right and minimal at the left. Trace effusion is seen within the right major fissure. Elevation of the left hemidiaphragm is associated with compressive atelectasis at the left lower lobe base as well. No pneumothorax bilaterally. Central airways appear clear. Mild mediastinal lymphadenopathy is appreciate including a sub carinal lymph node measuring 2.0 x 1.1 cm and inferior right paratracheal lymph node measuring 2.0 x 0.8 cm.Cholelithiasis. 2.0 cm cyst right lobe ingest the gallbladder fossa laterally. 5.2 cm exophytic cyst left lobe liver inferolaterally within nearly adjacent cysts somewhat more cephalad and lateral measuring 1.9 cm greatest dimension. Finally, 1.7 cm cyst upper pole left kidney. - ?? TB --> r/o AFBs x3, Quant, PPD - Azithromycin 500Q24, Rocephin Daily 12/14 A: Asthma A: COPD A: Hypercholesterolemia : A: BPH - Resumed proscar, flomax Psych: A: Schizophrenia - Resumed Depakene Prophylaxis - Pepcid - SCDs, Heparin Drip
[2017-12-16] MEDS: Magnesium Hydroxide Susp 30 ml UD PO SCH (22:03)
[2017-12-17 00:26] VITALS: RESP 20
[2017-12-17] MEDS: Piperacillin/Tazobact 3.375 GM in Sodium Chloride 100 ML IVPB SCH ×2 (00:36→06:04)
[2017-12-17] MEDS: Albuterol-Ipratrop 3 mg / 0.5 (3 ml) UD INH SCH ×5 (01:06→19:51)
[2017-12-17] MEDS: Acetylcysteine 20% Inhal Soln (4ml) INH PRN (07:09)
[2017-12-17 07:42] LABS: BASO # 0.1 K/uL (0.0-0.2); BASO % 0.7 % (0.0-2.0); EOS # 0.2 K/uL (0.0-0.7); EOS % 2.1 % (0.0-4.0); HEMOGLOBIN 10.9 g/dL (12.0-18.0); LYMPH # 0.9 K/uL (1.0-4.3); LYMPH % 11.1 % (20.0-40.0); MEAN CELL VOLUME 87.1 fL (80.0-94.0); MEAN CORPUSCULAR HEMOGLOBIN 29.4 pg (27.0-31.0); MEAN CORPUSCULAR HGB CONC 33.8 g/dL (33.0-37.0); MEAN PLATELET VOLUME 10.5 fL (7.2-11.7); MONO # 0.8 K/uL (0.0-0.8); MONO % 10.3 % (0.0-10.0); NEUT # 5.8 K/uL (1.8-7.0); NEUT % 75.8 % (50.0-75.0); RBC 3.71 Mil/uL (4.40-5.90); RED CELL DISTRIBUTION WIDTH 13.9 % (11.5-14.5); WHITE BLOOD COUNT 7.7 K/uL (4.8-10.8)
[2017-12-17 08:27] LABS: ALB/GLOB RATIO 0.8 (1.0-2.1); ALBUMIN 2.6 g/dL (3.5-5.0); ALT/SGPT 28 U/L (21-72); AST/SGOT 38 U/L (17-59); BLOOD UREA NITROGEN 16 mg/dL (9-20); GFR AFRICAN-AMERICAN > 60; GFR NON-AFRICAN AMERICAN > 60
[2017-12-17] MEDS: Vitamins A & D Oint UD Foilpak TOP SCH ×2 (10:29→18:00)
[2017-12-17] MEDS: Metoprolol Succinate 12.5 mg XL Tab PO SCH (10:30)
[2017-12-17] MEDS: Saccharomyces Boulardi 250 mg Cap PO SCH ×2 (10:30→17:59)
--- NOTE | 2017-12-17 12:40 | CP.PCM.PN ---
Subjective - Date & Time of Evaluation Date of Evaluation: 12/17/17 Time of Evaluation: 12:28 - Subjective Subjective: Pulmonary Follow up Covering Dr. Perez The Patient was seen and examined at the bedside, Medical records reviewed, and management issues were discussed and formulated with the house staff. Events reviewed 72 year old male, with PMHx of Anxiety, Asthma, BPH, Bipolar Disorder, CHF, COPD , Depression, HTN, hypercholesterolemia, CKD, and Schizophrenia, presented to the ED on 12/13 after being found unresponsive following an unwitnessed fall. Patient comes from a skilled nursing. . In ED, patient was found to have peripheral right upper lobe infiltrate and right small pleural effusion on CXR. patient transferred to ICUfor elevated Trop Respiratory isolation for right upper lung infiltrate pending sputum AFB continue antibiotics with Zithromax and Piperacillin Sod/Tazobactam 3.375 gm IVPB Q6H Pt Alert and oriented Denies any chest pain, SOB or Palpitations Afebrile, NSR on the monitor Possible cardiac cath patient on airborne isolation, being ruled out for TB, Sputum AFB still pending Objective - Vital Signs/Intake and Output Vital Signs (last 24 hours): Temp Pulse Resp BP Pulse Ox 97.3 F L 63 20 136/75 98 12/17/17 07:00 12/17/17 07:00 12/17/17 07:00 12/17/17 07:00 12/17/17 07:00 Intake and Output: 12/17/17 12/17/17 06:59 18:59 Intake Total 768 Output Total 1000 Balance -232 - Medications Medications: Current Medications Acetaminophen (Tylenol 325mg Tab) 650 mg PO Q4H PRN PRN Reason: Fever >100.4 F Acetylcysteine (Acetylcysteine 20%) 4 ml INH Q6H PRN PRN Reason: Cough and congestion Last Admin: 12/15/17 08:16 Dose: 4 ml Albuterol/Ipratropium (Duoneb 3 Mg/0.5 Mg (3 Ml) Ud) 3 ml INH RQ6 [facility] Last Admin: 12/17/17 07:10 Dose: Not Given Albuterol/Ipratropium (Duoneb 3 Mg/0.5 Mg (3 Ml) Ud) 3 ml INH RQ4 PRN PRN Reason: Cough Aspirin (Ecotrin) 81 mg PO DAILY [facility] Last Admin: 12/17/17 10:31 Dose: 81 mg Clopidogrel Bisulfate (Plavix) 75 mg PO DAILY [facility] Last Admin: 12/17/17 10:30 Dose: 75 mg Famotidine (Pepcid) 20 mg PO DAILY [facility] Last Admin: 12/17/17 10:31 Dose: 20 mg Finasteride (Proscar) 5 mg PO DAILY [facility] Last Admin: 12/17/17 10:30 Dose: 5 mg Azithromycin 500 mg/ Sodium (Chloride) 250 mls @ 250 mls/hr IVPB Q24H [facility] PRN Reason: Protocol Last Admin: 12/16/17 12:06 Dose: 250 mls/hr Heparin Sodium/Sodium Chloride (Heparin 18035 Units/250ml 1/2 Normal Saline) 25 ,000 units in 250 mls @ 14.696 mls/hr IV .Q17H1M PRN; Protocol; 18 UNITS/KG/HR PRN Reason: PROTOCOL Last Admin: 12/16/17 22:17 Dose: 18 units/kg/hr, 14.696 mls/hr Piperacillin Sod/Tazobactam (Sod 3.375 gm/ Dextrose) 50 mls @ 50 mls/hr IVPB Q6H [facility] PRN Reason: Protocol Losartan Potassium (Cozaar) 25 mg PO DAILY [facility] Last Admin: 12/17/17 10:30 Dose: 25 mg Magnesium Hydroxide (Milk Of Magnesia) 30 ml PO HS [facility] Last Admin: 12/16/17 22:03 Dose: 30 ml Metoprolol Succinate (Toprol Xl) 12.5 mg PO DAILY [facility] Last Admin: 12/17/17 10:30 Dose: 12.5 mg Saccharomyces Boulardii (Florastor) 250 mg PO BID [facility] Last Admin: 12/17/17 10:30 Dose: 250 mg Tamsulosin HCl (Flomax) 0.4 mg PO DAILY [facility] Last Admin: 12/17/17 10:30 Dose: 0.4 mg Valproate Sodium (Depakene Cap) 250 mg PO BID [facility] Last Admin: 12/17/17 10:30 Dose: 250 mg Vitamin A (Vitamin A & D Oint Ud Foilpak) 4 ea TOP BID [facility] Last Admin: 12/17/17 10:29 Dose: 4 ea - Labs Labs: 12/17/17 07:30 12/17/17 07:30 PT 17.1 SECONDS (9.7-12.2) H 12/16/17 03:18 INR 1.6 12/16/17 03:18 APTT 90 SECONDS (21-34) H 12/17/17 02:02 - Constitutional Appears: Well - Head Exam Head Exam: ATRAUMATIC, NORMAL INSPECTION - Eye Exam Eye Exam: EOMI, Normal appearance. absent: Conjunctival injection - ENT Exam ENT Exam: Mucous Membranes Moist - Neck Exam Neck Exam: Normal Inspection - Respiratory Exam Respiratory Exam: Decreased Breath Sounds, Prolonged Expiratory Phase, NORMAL BREATHING PATTERN. absent: Chest Wall Tenderness, Respiratory Distress - Cardiovascular Exam Cardiovascular Exam: REGULAR RHYTHM, RRR, +S1, +S2. absent: JVD - GI/Abdominal Exam GI & Abdominal Exam: Soft, Normal Bowel Sounds. absent: Distended, Firm - Extremities Exam Extremities Exam: Normal Capillary Refill, Pedal Edema, Tenderness. absent: Normal Inspection (healed left heel ulcer ) - Back Exam Back Exam: absent: CVA tenderness (L), CVA tenderness (R) - Neurological Exam Neurological Exam: Alert, Awake Assessment and Plan (1) Non-STEMI (non-ST elevated myocardial infarction) Status: Acute (2) Pneumonia involving right lung Status: Acute (3) Tracheobronchitis Status: Acute (4) COPD (chronic obstructive pulmonary disease) Status: Acute - Assessment and Plan (Free Text) Assessment: Patient being evaluated for r/o TB Patient on airborne contact isolation Sputum AFB still pending Continue current Antibiotics Continue Nabulizer treatment
[2017-12-17] MEDS: Piperacillin/Tazobact 3.375 GM in Dextrose 5% In Water 50 ML IVPB SCH ×2 (13:03→18:01)
[2017-12-17] MEDS: Azithromycin 500 MG in Sodium Chloride 0.9% 250 ML IVPB SCH (13:04)
[2017-12-17] MEDS: Heparin25000 units/250ml 1/2NS 25,000 UNITS/250 ML BAG IV PRN (16:28)
--- NOTE | 2017-12-17 21:20 | CP.PCM.PN ---
Subjective - Date & Time of Evaluation Date of Evaluation: 12/17/17 Time of Evaluation: 14:05 - Subjective Subjective: Patient with no new cardiac events Physical Examination - Physical Exam Head: Positive for: Atraumatic, Normocephalic Pupils: Positive for: PERRL Extroacular Muscles: Positive for: EOMI Conjunctiva: Positive for: Normal Mouth: Positive for: Moist Mucous Membranes Neck: Positive for: Normal Range of Motion Respiratory/Chest: Positive for: Decreased Breath Sounds Cardiovascular: Positive for: Tachycardic Abdomen: Positive for: Tenderness, Normal Bowel Sounds Upper Extremity: Positive for: Normal Inspection, NORMAL PULSES, Neurovascularly Intact, Capillary Refill < 2s Lower Extremity: Positive for: Normal Inspection, NORMAL PULSES, Neurovascularly Intact Neurological: Positive for: GCS=15, CN II-XII Intact Skin: Positive for: Warm, Dry, Rashes, Normal Color Psychiatric: Positive for: Alert, Oriented x 3, Normal Insight Objective - Vital Signs/Intake and Output Vital Signs (last 24 hours): Temp Pulse Resp BP Pulse Ox 98.4 F 66 20 123/75 98 12/17/17 15:45 12/17/17 18:00 12/17/17 15:45 12/17/17 15:45 12/17/17 15:45 Intake and Output: 12/17/17 12/18/17 18:59 06:59 Intake Total 1067.6 Output Total 500 Balance 567.6 - Medications Medications: Current Medications Acetaminophen (Tylenol 325mg Tab) 650 mg PO Q4H PRN PRN Reason: Fever >100.4 F Acetylcysteine (Acetylcysteine 20%) 4 ml INH Q6H PRN PRN Reason: Cough and congestion Last Admin: 12/15/17 08:16 Dose: 4 ml Albuterol/Ipratropium (Duoneb 3 Mg/0.5 Mg (3 Ml) Ud) 3 ml INH RQ6 [facility] Last Admin: 12/17/17 19:51 Dose: Not Given Albuterol/Ipratropium (Duoneb 3 Mg/0.5 Mg (3 Ml) Ud) 3 ml INH RQ4 PRN PRN Reason: Cough Aspirin (Ecotrin) 81 mg PO DAILY [facility] Last Admin: 12/17/17 10:31 Dose: 81 mg Clopidogrel Bisulfate (Plavix) 75 mg PO DAILY [facility] Last Admin: 12/17/17 10:30 Dose: 75 mg Famotidine (Pepcid) 20 mg PO DAILY [facility] Last Admin: 12/17/17 10:31 Dose: 20 mg Finasteride (Proscar) 5 mg PO DAILY [facility] Last Admin: 12/17/17 10:30 Dose: 5 mg Azithromycin 500 mg/ Sodium (Chloride) 250 mls @ 250 mls/hr IVPB Q24H [facility] PRN Reason: Protocol Last Admin: 12/17/17 13:04 Dose: 250 mls/hr Heparin Sodium/Sodium Chloride (Heparin 83633 Units/250ml 1/2 Normal Saline) 25 ,000 units in 250 mls @ 14.696 mls/hr IV .Q17H1M PRN; Protocol; 18 UNITS/KG/HR PRN Reason: PROTOCOL Last Admin: 12/17/17 16:28 Dose: 18 units/kg/hr, 14.696 mls/hr Piperacillin Sod/Tazobactam (Sod 3.375 gm/ Dextrose) 50 mls @ 50 mls/hr IVPB Q6H [facility] PRN Reason: Protocol Last Admin: 12/17/17 18:01 Dose: 50 mls/hr Losartan Potassium (Cozaar) 25 mg PO DAILY [facility] Last Admin: 12/17/17 10:30 Dose: 25 mg Magnesium Hydroxide (Milk Of Magnesia) 30 ml PO HS [facility] Last Admin: 12/16/17 22:03 Dose: 30 ml Metoprolol Succinate (Toprol Xl) 12.5 mg PO DAILY [facility] Last Admin: 12/17/17 10:30 Dose: 12.5 mg Saccharomyces Boulardii (Florastor) 250 mg PO BID [facility] Last Admin: 12/17/17 17:59 Dose: 250 mg Tamsulosin HCl (Flomax) 0.4 mg PO DAILY [facility] Last Admin: 12/17/17 10:30 Dose: 0.4 mg Valproate Sodium (Depakene Cap) 250 mg PO BID [facility] Last Admin: 12/17/17 17:59 Dose: 250 mg Vitamin A (Vitamin A & D Oint Ud Foilpak) 4 ea TOP BID [facility] Last Admin: 12/17/17 18:00 Dose: 4 ea - Labs Labs: 12/17/17 07:30 12/17/17 07:30 PT 17.1 SECONDS (9.7-12.2) H 12/16/17 03:18 INR 1.6 12/16/17 03:18 APTT 90 SECONDS (21-34) H 12/17/17 02:02 Assessment and Plan - Assessment and Plan (Free Text) Assessment: 72 year old male, with PMHx of Anxiety, Asthma, BPH, Bipolar Disorder, CHF, COPD , Depression, HTN, hypercholesterolemia, CKD, and Schizophrenia, presented to the ED on 12/13 after being found unresponsive following an unwitnessed fall. Patient found to have RUL PNA r/o TB, NSTEMI. Plan: Neuro: GCS 15 Cardio: A: NSTEMI Cath after TB ruled out - Troponin: 0.81 --> 2.12 --> 8.31 - EKG: No ST changes , q waves or t waves noted - Asa, plavix, Cozaar, Metoprolol, heparin drip A: HF Diastolic Dysfunction LVEF 55% A: HTN - Cozaar, Metoprolol Pulm: A: RUL PNA Pulmonary consulted - Dr. Perez - CXR: Peripheral right upper lobe infiltrate. - CT Chest: A mild right upper lobe infiltrate is appreciated abutting the lateral margins of the minor and major fissures. Limited air bronchograms are identified in this infiltrate and follow-up CT is advised following therapy to exclude underlying lesion. Bilateral lower lobe compressive atelectasis is related to bilateral pleural effusions, [id number] at the right and minimal at the left. Trace effusion is seen within the right major fissure. Elevation of the left hemidiaphragm is associated with compressive atelectasis at the left lower lobe base as well. No pneumothorax bilaterally. Central airways appear clear. Mild mediastinal lymphadenopathy is appreciate including a sub carinal lymph node measuring 2.0 x 1.1 cm and inferior right paratracheal lymph node measuring 2.0 x 0.8 cm.Cholelithiasis. 2.0 cm cyst right lobe ingest the gallbladder fossa laterally. 5.2 cm exophytic cyst left lobe liver inferolaterally within nearly adjacent cysts somewhat more cephalad and lateral measuring 1.9 cm greatest dimension. Finally, 1.7 cm cyst upper pole left kidney. - ?? TB --> r/o AFBs x3, Quant, PPD - Azithromycin 500Q24, Rocephin Daily 12/14 A: Asthma A: COPD A: Hypercholesterolemia : A: BPH - Resumed proscar, flomax Psych: A: Schizophrenia - Resumed Depakene Prophylaxis - Pepcid - SCDs, Heparin Drip
[2017-12-17] MEDS: Magnesium Hydroxide Susp 30 ml UD PO SCH (22:39)
--- NOTE | 2017-12-18 00:20 | CP.PCM.PN ---
Subjective - Date & Time of Evaluation Date of Evaluation: 12/17/17 Time of Evaluation: 19:00 - Subjective Subjective: Patient SEEN AND EXAMINED AT BEDSIDE Objective - Vital Signs/Intake and Output Vital Signs (last 24 hours): Temp Pulse Resp BP Pulse Ox 98.4 F 61 20 123/75 98 12/17/17 15:45 12/17/17 23:00 12/17/17 15:45 12/17/17 15:45 12/17/17 15:45 Intake and Output: 12/17/17 12/18/17 18:59 06:59 Intake Total 1067.6 Output Total 500 300 Balance 567.6 -300 - Medications Medications: Current Medications Acetaminophen (Tylenol 325mg Tab) 650 mg PO Q4H PRN PRN Reason: Fever >100.4 F Acetylcysteine (Acetylcysteine 20%) 4 ml INH Q6H PRN PRN Reason: Cough and congestion Last Admin: 12/15/17 08:16 Dose: 4 ml Albuterol/Ipratropium (Duoneb 3 Mg/0.5 Mg (3 Ml) Ud) 3 ml INH RQ6 [facility] Last Admin: 12/17/17 19:51 Dose: Not Given Albuterol/Ipratropium (Duoneb 3 Mg/0.5 Mg (3 Ml) Ud) 3 ml INH RQ4 PRN PRN Reason: Cough Aspirin (Ecotrin) 81 mg PO DAILY [facility] Last Admin: 12/17/17 10:31 Dose: 81 mg Clopidogrel Bisulfate (Plavix) 75 mg PO DAILY [facility] Last Admin: 12/17/17 10:30 Dose: 75 mg Famotidine (Pepcid) 20 mg PO DAILY [facility] Last Admin: 12/17/17 10:31 Dose: 20 mg Finasteride (Proscar) 5 mg PO DAILY [facility] Last Admin: 12/17/17 10:30 Dose: 5 mg Azithromycin 500 mg/ Sodium (Chloride) 250 mls @ 250 mls/hr IVPB Q24H [facility] PRN Reason: Protocol Last Admin: 12/17/17 13:04 Dose: 250 mls/hr Heparin Sodium/Sodium Chloride (Heparin 79760 Units/250ml 1/2 Normal Saline) 25 ,000 units in 250 mls @ 14.696 mls/hr IV .Q17H1M PRN; Protocol; 18 UNITS/KG/HR PRN Reason: PROTOCOL Last Admin: 12/17/17 16:28 Dose: 18 units/kg/hr, 14.696 mls/hr Piperacillin Sod/Tazobactam (Sod 3.375 gm/ Dextrose) 50 mls @ 50 mls/hr IVPB Q6H [facility] PRN Reason: Protocol Last Admin: 12/17/17 18:01 Dose: 50 mls/hr Losartan Potassium (Cozaar) 25 mg PO DAILY [facility] Last Admin: 12/17/17 10:30 Dose: 25 mg Magnesium Hydroxide (Milk Of Magnesia) 30 ml PO HS [facility] Last Admin: 12/17/17 22:39 Dose: Not Given Metoprolol Succinate (Toprol Xl) 12.5 mg PO DAILY [facility] Last Admin: 12/17/17 10:30 Dose: 12.5 mg Saccharomyces Boulardii (Florastor) 250 mg PO BID [facility] Last Admin: 12/17/17 17:59 Dose: 250 mg Tamsulosin HCl (Flomax) 0.4 mg PO DAILY [facility] Last Admin: 12/17/17 10:30 Dose: 0.4 mg Valproate Sodium (Depakene Cap) 250 mg PO BID [facility] Last Admin: 12/17/17 17:59 Dose: 250 mg Vitamin A (Vitamin A & D Oint Ud Foilpak) 4 ea TOP BID [facility] Last Admin: 12/17/17 18:00 Dose: 4 ea - Labs Labs: 12/17/17 07:30 12/17/17 07:30 PT 17.1 SECONDS (9.7-12.2) H 12/16/17 03:18 INR 1.6 12/16/17 03:18 APTT 90 SECONDS (21-34) H 12/17/17 02:02 Assessment and Plan (1) Non-STEMI (non-ST elevated myocardial infarction) Status: Acute (2) BPH (benign prostatic hyperplasia) Status: Acute (3) Hypertension Status: Acute (4) S/P cystoscopy Status: Resolved (5) Tracheobronchitis Status: Acute
[2017-12-18] MEDS: Piperacillin/Tazobact 3.375 GM in Dextrose 5% In Water 50 ML IVPB SCH ×4 (01:01→18:03)
[2017-12-18] MEDS: Albuterol-Ipratrop 3 mg / 0.5 (3 ml) UD INH SCH ×3 (07:49→19:53)
[2017-12-18 09:49] LABS: BASO # 0.1 K/uL (0.0-0.2); BASO % 0.9 % (0.0-2.0); EOS # 0.2 K/uL (0.0-0.7); HEMOGLOBIN 10.6 g/dL (12.0-18.0); LYMPH # 1.2 K/uL (1.0-4.3); LYMPH % 16.7 % (20.0-40.0); MEAN CELL VOLUME 85.8 fL (80.0-94.0); MEAN CORPUSCULAR HEMOGLOBIN 29.2 pg (27.0-31.0); MEAN CORPUSCULAR HGB CONC 34.1 g/dL (33.0-37.0); MEAN PLATELET VOLUME 10.8 fL (7.2-11.7); MONO # 0.7 K/uL (0.0-0.8); MONO % 10.4 % (0.0-10.0); NEUT # 4.7 K/uL (1.8-7.0); RBC 3.62 Mil/uL (4.40-5.90); RED CELL DISTRIBUTION WIDTH 13.8 % (11.5-14.5); WHITE BLOOD COUNT 6.9 K/uL (4.8-10.8)
[2017-12-18] MEDS: Vitamins A & D Oint UD Foilpak TOP SCH ×2 (10:02→18:03)
[2017-12-18] MEDS: Saccharomyces Boulardi 250 mg Cap PO SCH ×2 (10:03→18:03)
[2017-12-18] MEDS: Metoprolol Succinate 12.5 mg XL Tab PO SCH (10:03)
[2017-12-18 10:29] LABS: ALB/GLOB RATIO 0.8 (1.0-2.1); ALBUMIN 2.6 g/dL (3.5-5.0); ALT/SGPT 28 U/L (21-72); AST/SGOT 31 U/L (17-59); BLOOD UREA NITROGEN 12 mg/dL (9-20); GFR AFRICAN-AMERICAN > 60; GFR NON-AFRICAN AMERICAN > 60
[2017-12-18] MEDS: Heparin25000 units/250ml 1/2NS 25,000 UNITS/250 ML BAG IV PRN (10:30)
[2017-12-18] MEDS: Azithromycin 500 MG in Sodium Chloride 0.9% 250 ML IVPB SCH (11:02)
[2017-12-18] MEDS: Potassium Chloride 20 mEq/15 ml LIQ UD PO SCH ×2 (15:59→18:34)
--- NOTE | 2017-12-18 17:09 | CP.PCM.PN ---
Subjective - Date & Time of Evaluation Date of Evaluation: 12/18/17 Time of Evaluation: 13:00 - Subjective Subjective: The Patient was seen and examined at the bedside, Medical records reviewed. 72 year old male, with PMHx of Anxiety, Asthma, BPH, Bipolar Disorder, CHF, COPD, Depression, HTN, hypercholesterolemia, CKD, and Schizophrenia, presented to the ED on 12/13 after being found unresponsive following an unwitnessed fall. Patient comes from a group home. . In ED, patient was found to have peripheral right upper lobe infiltrate and right small pleural effusion on CXR. patient transferred to ICUfor elevated Trop Respiratory isolation for right upper lung infiltrate pending sputum AFB continue antibiotics with Zithromax and Piperacillin Sod/Tazobactam 3.375 gm IVPB Q6H Pt Alert and oriented Denies any chest pain, SOB or Palpitations Afebrile, NSR on the monitor Possible cardiac cath patient on airborne isolation, Objective - Vital Signs/Intake and Output Vital Signs (last 24 hours): Temp Pulse Resp BP Pulse Ox 98.0 F 74 20 139/75 95 12/18/17 15:04 12/18/17 15:04 12/18/17 15:04 12/18/17 15:04 12/18/17 15:04 Intake and Output: 12/18/17 12/18/17 06:59 18:59 Intake Total 816.9 Output Total 300 400 Balance -300 416.9 - Medications Medications: Current Medications Acetaminophen (Tylenol 325mg Tab) 650 mg PO Q4H PRN PRN Reason: Fever >100.4 F Acetylcysteine (Acetylcysteine 20%) 4 ml INH Q6H PRN PRN Reason: Cough and congestion Last Admin: 12/15/17 08:16 Dose: 4 ml Albuterol/Ipratropium (Duoneb 3 Mg/0.5 Mg (3 Ml) Ud) 3 ml INH RQ6 [facility] Last Admin: 12/18/17 13:22 Dose: 3 ml Albuterol/Ipratropium (Duoneb 3 Mg/0.5 Mg (3 Ml) Ud) 3 ml INH RQ4 PRN PRN Reason: Cough Aspirin (Ecotrin) 81 mg PO DAILY [facility] Last Admin: 12/18/17 10:03 Dose: 81 mg Clopidogrel Bisulfate (Plavix) 75 mg PO DAILY [facility] Last Admin: 12/18/17 10:03 Dose: 75 mg Famotidine (Pepcid) 20 mg PO DAILY [facility] Last Admin: 12/18/17 10:03 Dose: 20 mg Finasteride (Proscar) 5 mg PO DAILY [facility] Last Admin: 12/18/17 10:03 Dose: 5 mg Azithromycin 500 mg/ Sodium (Chloride) 250 mls @ 250 mls/hr IVPB Q24H [facility] PRN Reason: Protocol Last Admin: 12/18/17 11:02 Dose: 250 mls/hr Heparin Sodium/Sodium Chloride (Heparin 28706 Units/250ml 1/2 Normal Saline) 25 ,000 units in 250 mls @ 14.696 mls/hr IV .Q17H1M PRN; Protocol; 18 UNITS/KG/HR PRN Reason: PROTOCOL Last Admin: 12/18/17 10:30 Dose: 18 units/kg/hr, 14.696 mls/hr Piperacillin Sod/Tazobactam (Sod 3.375 gm/ Dextrose) 50 mls @ 50 mls/hr IVPB Q6H [facility] PRN Reason: Protocol Last Admin: 12/18/17 13:07 Dose: 50 mls/hr Losartan Potassium (Cozaar) 25 mg PO DAILY [facility] Last Admin: 12/18/17 10:03 Dose: 25 mg Magnesium Hydroxide (Milk Of Magnesia) 30 ml PO HS [facility] Last Admin: 12/17/17 22:39 Dose: Not Given Metoprolol Succinate (Toprol Xl) 12.5 mg PO DAILY [facility] Last Admin: 12/18/17 10:03 Dose: 12.5 mg Potassium Chloride (Potassium Chloride Oral Soln) 40 meq PO Q4H [facility] Stop: 12/18/17 19:31 Last Admin: 12/18/17 15:59 Dose: 40 meq Saccharomyces Boulardii (Florastor) 250 mg PO BID [facility] Last Admin: 12/18/17 10:03 Dose: 250 mg Tamsulosin HCl (Flomax) 0.4 mg PO DAILY [facility] Last Admin: 12/18/17 10:03 Dose: 0.4 mg Valproate Sodium (Depakene Cap) 250 mg PO BID [facility] Last Admin: 12/18/17 10:03 Dose: 250 mg Vitamin A (Vitamin A & D Oint Ud Foilpak) 4 ea TOP BID [facility] Last Admin: 12/18/17 10:02 Dose: 4 ea - Labs Labs: 12/18/17 09:29 12/18/17 09:29 PT 17.1 SECONDS (9.7-12.2) H 12/16/17 03:18 INR 1.6 12/16/17 03:18 APTT 87 SECONDS (21-34) H 12/18/17 09:29 - Constitutional Appears: Well, No Acute Distress - Head Exam Head Exam: ATRAUMATIC, NORMAL INSPECTION - Eye Exam Pupil Exam: NORMAL ACCOMODATION - ENT Exam ENT Exam: Mucous Membranes Moist - Neck Exam Neck Exam: Normal Inspection - Respiratory Exam Respiratory Exam: Clear to Ausculation Bilateral, NORMAL BREATHING PATTERN - Cardiovascular Exam Cardiovascular Exam: REGULAR RHYTHM, +S1, +S2 - GI/Abdominal Exam GI & Abdominal Exam: Soft, Normal Bowel Sounds - Back Exam Back Exam: NORMAL INSPECTION - Neurological Exam Neurological Exam: Alert, Awake, CN II-XII Intact, Oriented x3 - Psychiatric Exam Psychiatric exam: Normal Affect, Normal Mood Assessment and Plan (1) Non-STEMI (non-ST elevated myocardial infarction) Status: Acute (2) Pneumonia involving right lung Status: Acute (3) BPH (benign prostatic hyperplasia) Status: Acute (4) COPD (chronic obstructive pulmonary disease) Status: Acute - Assessment and Plan (Free Text) Plan: 72 year old male, with PMHx of Anxiety, Asthma, BPH, Bipolar Disorder, CHF, COPD , Depression, HTN, hypercholesterolemia, CKD, and Schizophrenia, presented to the ED on 12/13 after being found unresponsive following an unwitnessed fall. Patient comes from a group home. . In ED, patient was found to have peripheral right upper lobe infiltrate and right small pleural effusion on CXR. patient transferred to ICUfor elevated Trop Respiratory isolation for right upper lung infiltrate pending sputum AFB continue antibiotics with Zithromax and Piperacillin Sod/Tazobactam 3.375 gm IVPB Q6H Pt Alert and oriented Denies any chest pain, SOB or Palpitations Afebrile, NSR on the monitor Possible cardiac cath patient on airborne isolation,
[2017-12-18] MEDS: Magnesium Hydroxide Susp 30 ml UD PO SCH (23:46)
[2017-12-19] MEDS: Piperacillin/Tazobact 3.375 GM in Dextrose 5% In Water 50 ML IVPB SCH ×4 (00:20→19:43)
[2017-12-19] MEDS: Heparin25000 units/250ml 1/2NS 25,000 UNITS/250 ML BAG IV PRN (03:21)
[2017-12-19 07:32] LABS: BASO % 0.7 % (0.0-2.0); EOS # 0.3 K/uL (0.0-0.7); EOS % 4.4 % (0.0-4.0); LYMPH % 13.2 % (20.0-40.0); MEAN CELL VOLUME 85.4 fL (80.0-94.0); MEAN CORPUSCULAR HEMOGLOBIN 29.4 pg (27.0-31.0); MEAN CORPUSCULAR HGB CONC 34.4 g/dL (33.0-37.0); MEAN PLATELET VOLUME 10.3 fL (7.2-11.7); MONO # 0.7 K/uL (0.0-0.8); MONO % 9.7 % (0.0-10.0); NEUT # 5.2 K/uL (1.8-7.0); RBC 3.73 Mil/uL (4.40-5.90); RED CELL DISTRIBUTION WIDTH 13.8 % (11.5-14.5); WHITE BLOOD COUNT 7.2 K/uL (4.8-10.8)
[2017-12-19 07:54] LABS: ALB/GLOB RATIO 0.8 (1.0-2.1); ALBUMIN 2.6 g/dL (3.5-5.0); ALT/SGPT 31 U/L (21-72); AST/SGOT 30 U/L (17-59); BLOOD UREA NITROGEN 10 mg/dL (9-20); CALCIUM 8.1 mg/dl (8.6-10.4); GFR AFRICAN-AMERICAN > 60; GFR NON-AFRICAN AMERICAN > 60
[2017-12-19] MEDS: Saccharomyces Boulardi 250 mg Cap PO SCH ×2 (10:57→17:50)
[2017-12-19] MEDS: Vitamins A & D Oint UD Foilpak TOP SCH ×2 (10:57→17:51)
[2017-12-19] MEDS: Metoprolol Succinate 12.5 mg XL Tab PO SCH (10:58)
[2017-12-19] MEDS: Azithromycin 500 MG in Sodium Chloride 0.9% 250 ML IVPB SCH (11:57)
[2017-12-19] MEDS ORDERED: Potassium Chloride 20 mEq ER Tab PO ONE (11:57)
[2017-12-19 12:26] LABS: INR 1.5; PROTHROMBIN TIME 16.9 SECONDS (9.7-12.2)
--- NOTE | 2017-12-19 18:01 | CP.PCM.PN ---
Subjective - Date & Time of Evaluation Date of Evaluation: 12/19/17 Time of Evaluation: 15:20 - Subjective Subjective: patient seen and examined Awake and responsive No respiratory distress Off respiratory isolation Sputum AFB negative Afebrile Being treated for pneumonia Continue antibiotics Followup chest x-ray Patient is DNR/DNI Objective - Vital Signs/Intake and Output Vital Signs (last 24 hours): Temp Pulse Resp BP Pulse Ox 97.6 F 74 20 122/70 96 12/19/17 07:00 12/19/17 08:00 12/19/17 07:00 12/19/17 07:00 12/19/17 07:00 Intake and Output: 12/19/17 12/19/17 06:59 18:59 Intake Total 677.6 Output Total 700 450 Balance -22.4 -450 - Medications Medications: Current Medications Acetaminophen (Tylenol 325mg Tab) 650 mg PO Q4H PRN PRN Reason: Fever >100.4 F Acetylcysteine (Acetylcysteine 20%) 4 ml INH Q6H PRN PRN Reason: Cough and congestion Last Admin: 12/15/17 08:16 Dose: 4 ml Albuterol/Ipratropium (Duoneb 3 Mg/0.5 Mg (3 Ml) Ud) 3 ml INH RQ4 PRN PRN Reason: Cough Aspirin (Ecotrin) 81 mg PO DAILY [facility] Last Admin: 12/19/17 10:58 Dose: 81 mg Clopidogrel Bisulfate (Plavix) 75 mg PO DAILY [facility] Last Admin: 12/19/17 10:58 Dose: 75 mg Famotidine (Pepcid) 20 mg PO DAILY [facility] Last Admin: 12/19/17 10:57 Dose: 20 mg Finasteride (Proscar) 5 mg PO DAILY [facility] Last Admin: 12/19/17 10:57 Dose: 5 mg Heparin Sodium (Porcine) (Heparin) 5,000 units SC Q12 [facility] Azithromycin 500 mg/ Sodium (Chloride) 250 mls @ 250 mls/hr IVPB Q24H [facility] PRN Reason: Protocol Last Admin: 12/19/17 11:57 Dose: 250 mls/hr Piperacillin Sod/Tazobactam (Sod 3.375 gm/ Dextrose) 50 mls @ 50 mls/hr IVPB Q6H [facility] PRN Reason: Protocol Last Admin: 12/19/17 13:53 Dose: 50 mls/hr Losartan Potassium (Cozaar) 25 mg PO DAILY [facility] Last Admin: 12/19/17 10:58 Dose: 25 mg Magnesium Hydroxide (Milk Of Magnesia) 30 ml PO HS [facility] Last Admin: 12/18/17 23:46 Dose: Not Given Metoprolol Succinate (Toprol Xl) 12.5 mg PO DAILY [facility] Last Admin: 12/19/17 10:58 Dose: 12.5 mg Saccharomyces Boulardii (Florastor) 250 mg PO BID [facility] Last Admin: 12/19/17 17:50 Dose: 250 mg Tamsulosin HCl (Flomax) 0.4 mg PO DAILY [facility] Last Admin: 12/19/17 10:58 Dose: 0.4 mg Valproate Sodium (Depakene Cap) 250 mg PO BID [facility] Last Admin: 12/19/17 17:50 Dose: 250 mg Vitamin A (Vitamin A & D Oint Ud Foilpak) 4 ea TOP BID [facility] Last Admin: 12/19/17 17:51 Dose: 4 ea - Labs Labs: 12/19/17 07:24 12/19/17 07:24 PT 16.9 SECONDS (9.7-12.2) H 12/19/17 12:07 INR 1.5 12/19/17 12:07 APTT 65 SECONDS (21-34) H D 12/19/17 12:07 - Head Exam Head Exam: ATRAUMATIC, NORMOCEPHALIC - ENT Exam ENT Exam: Mucous Membranes Moist - Respiratory Exam Respiratory Exam: Decreased Breath Sounds - Cardiovascular Exam Cardiovascular Exam: REGULAR RHYTHM - GI/Abdominal Exam GI & Abdominal Exam: Soft, Normal Bowel Sounds - Neurological Exam Neurological Exam: Awake Assessment and Plan (1) Pneumonia involving right lung Status: Acute (2) Non-STEMI (non-ST elevated myocardial infarction) Status: Acute (3) COPD (chronic obstructive pulmonary disease) Status: Acute
[2017-12-19] MEDS: Magnesium Hydroxide Susp 30 ml UD PO SCH (21:12)
[2017-12-19] MEDS ORDERED: Dextrose 50% VIAL Inj (50 ml) IV ONE (21:41)
--- NOTE | 2017-12-20 00:14 | CP.PCM.PN ---
Subjective - Date & Time of Evaluation Date of Evaluation: 12/19/17 Time of Evaluation: 19:00 - Subjective Subjective: Pt seen and examined at bedside Objective - Vital Signs/Intake and Output Vital Signs (last 24 hours): Temp Pulse Resp BP Pulse Ox 98 F 68 20 143/76 94 L 12/19/17 23:53 12/19/17 23:53 12/19/17 23:53 12/19/17 23:53 12/19/17 23:53 Intake and Output: 12/19/17 12/20/17 18:59 06:59 Output Total 450 500 Balance -450 -500 - Medications Medications: Current Medications Acetaminophen (Tylenol 325mg Tab) 650 mg PO Q4H PRN PRN Reason: Fever >100.4 F Acetylcysteine (Acetylcysteine 20%) 4 ml INH Q6H PRN PRN Reason: Cough and congestion Last Admin: 12/15/17 08:16 Dose: 4 ml Albuterol/Ipratropium (Duoneb 3 Mg/0.5 Mg (3 Ml) Ud) 3 ml INH RQ4 PRN PRN Reason: Cough Aspirin (Ecotrin) 81 mg PO DAILY [facility] Last Admin: 12/19/17 10:58 Dose: 81 mg Clopidogrel Bisulfate (Plavix) 75 mg PO DAILY [facility] Last Admin: 12/19/17 10:58 Dose: 75 mg Famotidine (Pepcid) 20 mg PO DAILY [facility] Last Admin: 12/19/17 10:57 Dose: 20 mg Finasteride (Proscar) 5 mg PO DAILY [facility] Last Admin: 12/19/17 10:57 Dose: 5 mg Heparin Sodium (Porcine) (Heparin) 5,000 units SC Q12 [facility] Last Admin: 12/19/17 21:12 Dose: 5,000 units Azithromycin 500 mg/ Sodium (Chloride) 250 mls @ 250 mls/hr IVPB Q24H [facility] PRN Reason: Protocol Last Admin: 12/19/17 11:57 Dose: 250 mls/hr Piperacillin Sod/Tazobactam (Sod 3.375 gm/ Dextrose) 50 mls @ 50 mls/hr IVPB Q6H [facility] PRN Reason: Protocol Last Admin: 12/19/17 19:43 Dose: 50 mls/hr Losartan Potassium (Cozaar) 25 mg PO DAILY [facility] Last Admin: 12/19/17 10:58 Dose: 25 mg Magnesium Hydroxide (Milk Of Magnesia) 30 ml PO HS [facility] Last Admin: 12/19/17 21:12 Dose: 30 ml Metoprolol Succinate (Toprol Xl) 12.5 mg PO DAILY [facility] Last Admin: 12/19/17 10:58 Dose: 12.5 mg Saccharomyces Boulardii (Florastor) 250 mg PO BID [facility] Last Admin: 12/19/17 17:50 Dose: 250 mg Tamsulosin HCl (Flomax) 0.4 mg PO DAILY [facility] Last Admin: 12/19/17 10:58 Dose: 0.4 mg Valproate Sodium (Depakene Cap) 250 mg PO BID [facility] Last Admin: 12/19/17 17:50 Dose: 250 mg Vitamin A (Vitamin A & D Oint Ud Foilpak) 4 ea TOP BID [facility] Last Admin: 12/19/17 17:51 Dose: 4 ea - Labs Labs: 12/19/17 07:24 12/19/17 07:24 PT 16.9 SECONDS (9.7-12.2) H 12/19/17 12:07 INR 1.5 12/19/17 12:07 APTT 65 SECONDS (21-34) H D 12/19/17 12:07 Assessment and Plan (1) Non-STEMI (non-ST elevated myocardial infarction) Status: Acute (2) BPH (benign prostatic hyperplasia) Status: Acute (3) Hypertension Status: Acute (4) S/P cystoscopy Status: Resolved (5) Tracheobronchitis Status: Acute
[2017-12-20] MEDS: Piperacillin/Tazobact 3.375 GM in Dextrose 5% In Water 50 ML IVPB SCH ×4 (00:44→18:29)
[2017-12-20] MEDS ORDERED: Dextrose 50% VIAL Inj (50 ml) IV ONE (07:15)
[2017-12-20] MEDS ORDERED: Dextrose 50% SYRINGE Inj (50 ml) IV STA (08:03)
[2017-12-20 08:14] LABS: BLOOD UREA NITROGEN 9 mg/dL (9-20); CALCIUM 8.1 mg/dl (8.6-10.4); GFR AFRICAN-AMERICAN > 60; GFR NON-AFRICAN AMERICAN > 60
[2017-12-20] MEDS: Vitamins A & D Oint UD Foilpak TOP SCH ×2 (10:34→18:29)
[2017-12-20] MEDS: Metoprolol Succinate 12.5 mg XL Tab PO SCH (10:40)
[2017-12-20] MEDS: Saccharomyces Boulardi 250 mg Cap PO SCH ×2 (10:50→18:29)
[2017-12-20] MEDS ORDERED: Glucagon Recombinant 1 mg Inj IM PRN (11:17)
[2017-12-20] MEDS ORDERED: Dextrose 50% SYRINGE Inj (50 ml) IV PRN (11:17)
[2017-12-20] MEDS: Azithromycin 500 MG in Sodium Chloride 0.9% 250 ML IVPB SCH (11:55)
--- NOTE | 2017-12-20 16:01 | CP.PCM.PN ---
Subjective - Date & Time of Evaluation Date of Evaluation: 12/20/17 Time of Evaluation: 15:59 - Subjective Subjective: DISCUSSED CARDIOLOGY PLAN WITH DR. DON. PER DR. RABAGO'S NOTE, PT IS CLEARED FROM R/O TB---HAD [address] DON TO DO CARDIAC CATH TOMORROW MORNING. I CALLED CARDIOLOGY AND SCHEDULED THIS WITH TONYA. Elvira DON TO RE-DISCUSS THIS WITH PT IN THE MORNING, HE SAW PT EARLY TODAY. DR. FORRESTER ALSO AWARE OF PLAN FOR CATH. NO FURTHER ORDERS. Objective - Vital Signs/Intake and Output Vital Signs (last 24 hours): Temp Pulse Resp BP Pulse Ox 97.6 F 75 20 138/72 94 L 12/20/17 07:45 12/20/17 07:45 12/20/17 07:45 12/20/17 07:45 12/20/17 07:45 Intake and Output: 12/20/17 12/20/17 06:59 18:59 Output Total 900 Balance -900 - Medications Medications: Current Medications Acetaminophen (Tylenol 325mg Tab) 650 mg PO Q4H PRN PRN Reason: Fever >100.4 F Acetylcysteine (Acetylcysteine 20%) 4 ml INH Q6H PRN PRN Reason: Cough and congestion Last Admin: 12/15/17 08:16 Dose: 4 ml Albuterol/Ipratropium (Duoneb 3 Mg/0.5 Mg (3 Ml) Ud) 3 ml INH RQ4 PRN PRN Reason: Cough Aspirin (Ecotrin) 81 mg PO DAILY [facility] Last Admin: 12/20/17 10:34 Dose: 81 mg Clopidogrel Bisulfate (Plavix) 75 mg PO DAILY [facility] Last Admin: 12/20/17 10:34 Dose: 75 mg Dextrose (Dextrose 50% Inj) 0 ml IV STAT PRN; Protocol PRN Reason: Hypoglycemia Protocol Dextrose (Glutose 15) 15 gm PO ONCE PRN; Protocol PRN Reason: Hypoglycemia Protocol Famotidine (Pepcid) 20 mg PO DAILY [facility] Last Admin: 12/20/17 10:34 Dose: 20 mg Finasteride (Proscar) 5 mg PO DAILY [facility] Last Admin: 12/20/17 10:34 Dose: 5 mg Glucagon (Glucagen Diagnostic Kit) 1 mg IM STAT PRN; Protocol PRN Reason: Hypoglycemia Protocol Heparin Sodium (Porcine) (Heparin) 5,000 units SC Q12 [facility] Last Admin: 12/20/17 10:34 Dose: 5,000 units Azithromycin 500 mg/ Sodium (Chloride) 250 mls @ 250 mls/hr IVPB Q24H [facility] PRN Reason: Protocol Last Admin: 12/20/17 11:55 Dose: 250 mls/hr Piperacillin Sod/Tazobactam (Sod 3.375 gm/ Dextrose) 50 mls @ 50 mls/hr IVPB Q6H [facility] PRN Reason: Protocol Last Admin: 12/20/17 13:07 Dose: 50 mls/hr Dextrose (Dextrose 5% In Water 1000 Ml) 1,000 mls @ 0 mls/hr IV .Q0M PRN; Protocol; Per Protocol PRN Reason: Hypoglycemia Protocol Losartan Potassium (Cozaar) 25 mg PO DAILY [facility] Last Admin: 12/20/17 10:34 Dose: 25 mg Magnesium Hydroxide (Milk Of Magnesia) 30 ml PO HS [facility] Last Admin: 12/19/17 21:12 Dose: 30 ml Metoprolol Succinate (Toprol Xl) 12.5 mg PO DAILY [facility] Last Admin: 12/20/17 10:40 Dose: 12.5 mg Saccharomyces Boulardii (Florastor) 250 mg PO BID [facility] Last Admin: 12/20/17 10:50 Dose: 250 mg Tamsulosin HCl (Flomax) 0.4 mg PO DAILY [facility] Last Admin: 12/20/17 10:34 Dose: 0.4 mg Valproate Sodium (Depakene Cap) 250 mg PO BID [facility] Last Admin: 12/20/17 10:40 Dose: 250 mg Vitamin A (Vitamin A & D Oint Ud Foilpak) 4 ea TOP BID [facility] Last Admin: 12/20/17 10:34 Dose: 4 ea - Labs Labs: 12/19/17 07:24 12/20/17 07:50 PT 16.9 SECONDS (9.7-12.2) H 12/19/17 12:07 INR 1.5 12/19/17 12:07 APTT 65 SECONDS (21-34) H D 12/19/17 12:07
--- NOTE | 2017-12-20 16:08 | CP.PCM.PN ---
Subjective - Date & Time of Evaluation Date of Evaluation: 12/20/17 Time of Evaluation: 10:25 - Subjective Subjective: patient seen and examined lying Comfortably in no acute distress for cardiac cath tomorrow afebrile no chest pain Objective - Vital Signs/Intake and Output Vital Signs (last 24 hours): Temp Pulse Resp BP Pulse Ox 97.6 F 75 20 138/72 94 L 12/20/17 07:45 12/20/17 07:45 12/20/17 07:45 12/20/17 07:45 12/20/17 07:45 Intake and Output: 12/20/17 12/20/17 06:59 18:59 Output Total 900 Balance -900 - Medications Medications: Current Medications Acetaminophen (Tylenol 325mg Tab) 650 mg PO Q4H PRN PRN Reason: Fever >100.4 F Acetylcysteine (Acetylcysteine 20%) 4 ml INH Q6H PRN PRN Reason: Cough and congestion Last Admin: 12/15/17 08:16 Dose: 4 ml Albuterol/Ipratropium (Duoneb 3 Mg/0.5 Mg (3 Ml) Ud) 3 ml INH RQ4 PRN PRN Reason: Cough Aspirin (Ecotrin) 81 mg PO DAILY [facility] Last Admin: 12/20/17 10:34 Dose: 81 mg Clopidogrel Bisulfate (Plavix) 75 mg PO DAILY [facility] Last Admin: 12/20/17 10:34 Dose: 75 mg Dextrose (Dextrose 50% Inj) 0 ml IV STAT PRN; Protocol PRN Reason: Hypoglycemia Protocol Dextrose (Glutose 15) 15 gm PO ONCE PRN; Protocol PRN Reason: Hypoglycemia Protocol Famotidine (Pepcid) 20 mg PO DAILY [facility] Last Admin: 12/20/17 10:34 Dose: 20 mg Finasteride (Proscar) 5 mg PO DAILY [facility] Last Admin: 12/20/17 10:34 Dose: 5 mg Glucagon (Glucagen Diagnostic Kit) 1 mg IM STAT PRN; Protocol PRN Reason: Hypoglycemia Protocol Heparin Sodium (Porcine) (Heparin) 5,000 units SC Q12 [facility] Last Admin: 12/20/17 10:34 Dose: 5,000 units Azithromycin 500 mg/ Sodium (Chloride) 250 mls @ 250 mls/hr IVPB Q24H [facility] PRN Reason: Protocol Last Admin: 12/20/17 11:55 Dose: 250 mls/hr Piperacillin Sod/Tazobactam (Sod 3.375 gm/ Dextrose) 50 mls @ 50 mls/hr IVPB Q6H [facility] PRN Reason: Protocol Last Admin: 12/20/17 13:07 Dose: 50 mls/hr Dextrose (Dextrose 5% In Water 1000 Ml) 1,000 mls @ 0 mls/hr IV .Q0M PRN; Protocol; Per Protocol PRN Reason: Hypoglycemia Protocol Losartan Potassium (Cozaar) 25 mg PO DAILY [facility] Last Admin: 12/20/17 10:34 Dose: 25 mg Magnesium Hydroxide (Milk Of Magnesia) 30 ml PO HS [facility] Last Admin: 12/19/17 21:12 Dose: 30 ml Metoprolol Succinate (Toprol Xl) 12.5 mg PO DAILY [facility] Last Admin: 12/20/17 10:40 Dose: 12.5 mg Saccharomyces Boulardii (Florastor) 250 mg PO BID [facility] Last Admin: 12/20/17 10:50 Dose: 250 mg Tamsulosin HCl (Flomax) 0.4 mg PO DAILY [facility] Last Admin: 12/20/17 10:34 Dose: 0.4 mg Valproate Sodium (Depakene Cap) 250 mg PO BID [facility] Last Admin: 12/20/17 10:40 Dose: 250 mg Vitamin A (Vitamin A & D Oint Ud Foilpak) 4 ea TOP BID [facility] Last Admin: 12/20/17 10:34 Dose: 4 ea - Labs Labs: 12/19/17 07:24 12/20/17 07:50 PT 16.9 SECONDS (9.7-12.2) H 12/19/17 12:07 INR 1.5 12/19/17 12:07 APTT 65 SECONDS (21-34) H D 12/19/17 12:07 - Head Exam Head Exam: ATRAUMATIC, NORMOCEPHALIC - ENT Exam ENT Exam: Mucous Membranes Moist - Neck Exam Neck Exam: Normal Inspection - Respiratory Exam Respiratory Exam: Clear to Ausculation Bilateral - Cardiovascular Exam Cardiovascular Exam: REGULAR RHYTHM - GI/Abdominal Exam GI & Abdominal Exam: Soft, Normal Bowel Sounds Assessment and Plan (1) Pneumonia involving right lung Assessment & Plan: Continue antibiotics Continue nebulizer treatment For cardiac cath tomorrow Status: Acute (2) Non-STEMI (non-ST elevated myocardial infarction) Status: Acute (3) COPD (chronic obstructive pulmonary disease) Status: Acute
[2017-12-20] MEDS: Magnesium Hydroxide Susp 30 ml UD PO SCH (21:52)
[2017-12-21] MEDS: Piperacillin/Tazobact 3.375 GM in Dextrose 5% In Water 50 ML IVPB SCH ×3 (01:56→19:20)
--- NOTE | 2017-12-21 07:48 | CP.PCM.PN ---
Subjective - Date & Time of Evaluation Date of Evaluation: 12/20/17 Time of Evaluation: 19:00 - Subjective Subjective: Pt seen and examined by me Objective - Vital Signs/Intake and Output Vital Signs (last 24 hours): Temp Pulse Resp BP Pulse Ox 98.1 F 71 20 127/77 95 12/21/17 01:00 12/21/17 01:00 12/21/17 01:00 12/21/17 01:00 12/21/17 01:00 Intake and Output: 12/21/17 12/21/17 06:59 18:59 Output Total 900 Balance -900 - Medications Medications: Current Medications Acetaminophen (Tylenol 325mg Tab) 650 mg PO Q4H PRN PRN Reason: Fever >100.4 F Acetylcysteine (Acetylcysteine 20%) 4 ml INH Q6H PRN PRN Reason: Cough and congestion Last Admin: 12/15/17 08:16 Dose: 4 ml Albuterol/Ipratropium (Duoneb 3 Mg/0.5 Mg (3 Ml) Ud) 3 ml INH RQ4 PRN PRN Reason: Cough Aspirin (Ecotrin) 81 mg PO DAILY [facility] Last Admin: 12/20/17 10:34 Dose: 81 mg Clopidogrel Bisulfate (Plavix) 75 mg PO DAILY [facility] Last Admin: 12/20/17 10:34 Dose: 75 mg Dextrose (Dextrose 50% Inj) 0 ml IV STAT PRN; Protocol PRN Reason: Hypoglycemia Protocol Dextrose (Glutose 15) 15 gm PO ONCE PRN; Protocol PRN Reason: Hypoglycemia Protocol Famotidine (Pepcid) 20 mg PO DAILY [facility] Last Admin: 12/20/17 10:34 Dose: 20 mg Finasteride (Proscar) 5 mg PO DAILY [facility] Last Admin: 12/20/17 10:34 Dose: 5 mg Glucagon (Glucagen Diagnostic Kit) 1 mg IM STAT PRN; Protocol PRN Reason: Hypoglycemia Protocol Heparin Sodium (Porcine) (Heparin) 5,000 units SC Q12 [facility] Last Admin: 12/20/17 21:50 Dose: 5,000 units Azithromycin 500 mg/ Sodium (Chloride) 250 mls @ 250 mls/hr IVPB Q24H [facility] PRN Reason: Protocol Last Admin: 12/20/17 11:55 Dose: 250 mls/hr Piperacillin Sod/Tazobactam (Sod 3.375 gm/ Dextrose) 50 mls @ 50 mls/hr IVPB Q6H [facility] PRN Reason: Protocol Last Admin: 12/21/17 06:18 Dose: 50 mls/hr Dextrose (Dextrose 5% In Water 1000 Ml) 1,000 mls @ 0 mls/hr IV .Q0M PRN; Protocol; Per Protocol PRN Reason: Hypoglycemia Protocol Losartan Potassium (Cozaar) 25 mg PO DAILY [facility] Last Admin: 12/20/17 10:34 Dose: 25 mg Magnesium Hydroxide (Milk Of Magnesia) 30 ml PO HS [facility] Last Admin: 12/20/17 21:52 Dose: Not Given Metoprolol Succinate (Toprol Xl) 12.5 mg PO DAILY [facility] Last Admin: 12/20/17 10:40 Dose: 12.5 mg Saccharomyces Boulardii (Florastor) 250 mg PO BID [facility] Last Admin: 12/20/17 18:29 Dose: 250 mg Tamsulosin HCl (Flomax) 0.4 mg PO DAILY [facility] Last Admin: 12/20/17 10:34 Dose: 0.4 mg Valproate Sodium (Depakene Cap) 250 mg PO BID [facility] Last Admin: 12/20/17 18:26 Dose: 250 mg Vitamin A (Vitamin A & D Oint Ud Foilpak) 4 ea TOP BID [facility] Last Admin: 12/20/17 18:29 Dose: Not Given - Labs Labs: 12/19/17 07:24 12/20/17 07:50 PT 16.9 SECONDS (9.7-12.2) H 12/19/17 12:07 INR 1.5 12/19/17 12:07 APTT 65 SECONDS (21-34) H D 12/19/17 12:07 Assessment and Plan (1) Non-STEMI (non-ST elevated myocardial infarction) Status: Acute (2) BPH (benign prostatic hyperplasia) Status: Acute (3) Hypertension Status: Acute (4) Tracheobronchitis Status: Acute
[2017-12-21] MEDS ORDERED: Heparin 0 ML IV ONE (07:50)
[2017-12-21] MEDS ORDERED: Iohexol 350mg/ml 100 ML ONE (07:50)
--- NOTE | 2017-12-21 08:24 | CP.PCM.PN ---
Subjective - Date & Time of Evaluation Date of Evaluation: 12/20/17 Time of Evaluation: 18:20 - Subjective Subjective: Patient seen and evaluated Denies chest pain and dyspnea Patient agreed for cardiac cath Patient scheduled for cath in am Objective - Vital Signs/Intake and Output Vital Signs (last 24 hours): Temp Pulse Resp BP Pulse Ox 98.1 F 71 20 127/77 95 12/21/17 01:00 12/21/17 01:00 12/21/17 01:00 12/21/17 01:00 12/21/17 01:00 Intake and Output: 12/21/17 12/21/17 06:59 18:59 Output Total 900 Balance -900 - Medications Medications: Current Medications Acetaminophen (Tylenol 325mg Tab) 650 mg PO Q4H PRN PRN Reason: Fever >100.4 F Acetylcysteine (Acetylcysteine 20%) 4 ml INH Q6H PRN PRN Reason: Cough and congestion Last Admin: 12/15/17 08:16 Dose: 4 ml Albuterol/Ipratropium (Duoneb 3 Mg/0.5 Mg (3 Ml) Ud) 3 ml INH RQ4 PRN PRN Reason: Cough Aspirin (Ecotrin) 81 mg PO DAILY [facility] Last Admin: 12/20/17 10:34 Dose: 81 mg Clopidogrel Bisulfate (Plavix) 75 mg PO DAILY [facility] Last Admin: 12/20/17 10:34 Dose: 75 mg Dextrose (Dextrose 50% Inj) 0 ml IV STAT PRN; Protocol PRN Reason: Hypoglycemia Protocol Dextrose (Glutose 15) 15 gm PO ONCE PRN; Protocol PRN Reason: Hypoglycemia Protocol Famotidine (Pepcid) 20 mg PO DAILY [facility] Last Admin: 12/20/17 10:34 Dose: 20 mg Finasteride (Proscar) 5 mg PO DAILY [facility] Last Admin: 12/20/17 10:34 Dose: 5 mg Glucagon (Glucagen Diagnostic Kit) 1 mg IM STAT PRN; Protocol PRN Reason: Hypoglycemia Protocol Heparin Sodium (Porcine) (Heparin) 5,000 units SC Q12 [facility] Last Admin: 12/20/17 21:50 Dose: 5,000 units Azithromycin 500 mg/ Sodium (Chloride) 250 mls @ 250 mls/hr IVPB Q24H [facility] PRN Reason: Protocol Last Admin: 12/20/17 11:55 Dose: 250 mls/hr Piperacillin Sod/Tazobactam (Sod 3.375 gm/ Dextrose) 50 mls @ 50 mls/hr IVPB Q6H [facility] PRN Reason: Protocol Last Admin: 12/21/17 06:18 Dose: 50 mls/hr Dextrose (Dextrose 5% In Water 1000 Ml) 1,000 mls @ 0 mls/hr IV .Q0M PRN; Protocol; Per Protocol PRN Reason: Hypoglycemia Protocol Losartan Potassium (Cozaar) 25 mg PO DAILY [facility] Last Admin: 12/20/17 10:34 Dose: 25 mg Magnesium Hydroxide (Milk Of Magnesia) 30 ml PO HS [facility] Last Admin: 12/20/17 21:52 Dose: Not Given Metoprolol Succinate (Toprol Xl) 12.5 mg PO DAILY [facility] Last Admin: 12/20/17 10:40 Dose: 12.5 mg Saccharomyces Boulardii (Florastor) 250 mg PO BID [facility] Last Admin: 12/20/17 18:29 Dose: 250 mg Tamsulosin HCl (Flomax) 0.4 mg PO DAILY [facility] Last Admin: 12/20/17 10:34 Dose: 0.4 mg Valproate Sodium (Depakene Cap) 250 mg PO BID [facility] Last Admin: 12/20/17 18:26 Dose: 250 mg Vitamin A (Vitamin A & D Oint Ud Foilpak) 4 ea TOP BID [facility] Last Admin: 12/20/17 18:29 Dose: Not Given - Labs Labs: 12/19/17 07:24 12/20/17 07:50 PT 16.9 SECONDS (9.7-12.2) H 12/19/17 12:07 INR 1.5 12/19/17 12:07 APTT 65 SECONDS (21-34) H D 12/19/17 12:07
--- NOTE | 2017-12-21 08:27 | CP.PCM.PN ---
Subjective - Date & Time of Evaluation Date of Evaluation: 12/21/17 Time of Evaluation: 08:25 - Subjective Subjective: Patient seen and evaluated denies chest pain and dyspnea Patient states he changed his mind does not want to undergo cardiac cath any more Understands the riisk of heart attack and [place] Medical management only for now Cath cancelled Resume diet Objective - Vital Signs/Intake and Output Vital Signs (last 24 hours): Temp Pulse Resp BP Pulse Ox 98.1 F 71 20 127/77 95 12/21/17 01:00 12/21/17 01:00 12/21/17 01:00 12/21/17 01:00 12/21/17 01:00 Intake and Output: 12/21/17 12/21/17 06:59 18:59 Output Total 900 Balance -900 - Medications Medications: Current Medications Acetaminophen (Tylenol 325mg Tab) 650 mg PO Q4H PRN PRN Reason: Fever >100.4 F Acetylcysteine (Acetylcysteine 20%) 4 ml INH Q6H PRN PRN Reason: Cough and congestion Last Admin: 12/15/17 08:16 Dose: 4 ml Albuterol/Ipratropium (Duoneb 3 Mg/0.5 Mg (3 Ml) Ud) 3 ml INH RQ4 PRN PRN Reason: Cough Aspirin (Ecotrin) 81 mg PO DAILY [facility] Last Admin: 12/20/17 10:34 Dose: 81 mg Clopidogrel Bisulfate (Plavix) 75 mg PO DAILY [facility] Last Admin: 12/20/17 10:34 Dose: 75 mg Dextrose (Dextrose 50% Inj) 0 ml IV STAT PRN; Protocol PRN Reason: Hypoglycemia Protocol Dextrose (Glutose 15) 15 gm PO ONCE PRN; Protocol PRN Reason: Hypoglycemia Protocol Famotidine (Pepcid) 20 mg PO DAILY [facility] Last Admin: 12/20/17 10:34 Dose: 20 mg Finasteride (Proscar) 5 mg PO DAILY [facility] Last Admin: 12/20/17 10:34 Dose: 5 mg Glucagon (Glucagen Diagnostic Kit) 1 mg IM STAT PRN; Protocol PRN Reason: Hypoglycemia Protocol Heparin Sodium (Porcine) (Heparin) 5,000 units SC Q12 [facility] Last Admin: 12/20/17 21:50 Dose: 5,000 units Azithromycin 500 mg/ Sodium (Chloride) 250 mls @ 250 mls/hr IVPB Q24H [facility] PRN Reason: Protocol Last Admin: 12/20/17 11:55 Dose: 250 mls/hr Piperacillin Sod/Tazobactam (Sod 3.375 gm/ Dextrose) 50 mls @ 50 mls/hr IVPB Q6H [facility] PRN Reason: Protocol Last Admin: 12/21/17 06:18 Dose: 50 mls/hr Dextrose (Dextrose 5% In Water 1000 Ml) 1,000 mls @ 0 mls/hr IV .Q0M PRN; Protocol; Per Protocol PRN Reason: Hypoglycemia Protocol Losartan Potassium (Cozaar) 25 mg PO DAILY [facility] Last Admin: 12/20/17 10:34 Dose: 25 mg Magnesium Hydroxide (Milk Of Magnesia) 30 ml PO HS [facility] Last Admin: 12/20/17 21:52 Dose: Not Given Metoprolol Succinate (Toprol Xl) 12.5 mg PO DAILY [facility] Last Admin: 12/20/17 10:40 Dose: 12.5 mg Saccharomyces Boulardii (Florastor) 250 mg PO BID [facility] Last Admin: 12/20/17 18:29 Dose: 250 mg Tamsulosin HCl (Flomax) 0.4 mg PO DAILY [facility] Last Admin: 12/20/17 10:34 Dose: 0.4 mg Valproate Sodium (Depakene Cap) 250 mg PO BID [facility] Last Admin: 12/20/17 18:26 Dose: 250 mg Vitamin A (Vitamin A & D Oint Ud Foilpak) 4 ea TOP BID [facility] Last Admin: 12/20/17 18:29 Dose: Not Given - Labs Labs: 12/19/17 07:24 12/20/17 07:50 PT 16.9 SECONDS (9.7-12.2) H 12/19/17 12:07 INR 1.5 12/19/17 12:07 APTT 65 SECONDS (21-34) H D 12/19/17 12:07
[2017-12-21] MEDS: Saccharomyces Boulardi 250 mg Cap PO SCH ×2 (10:55→18:30)
[2017-12-21] MEDS: Vitamins A & D Oint UD Foilpak TOP SCH ×2 (10:57→18:30)
[2017-12-21] MEDS: Metoprolol Succinate 12.5 mg XL Tab PO SCH (10:57)
[2017-12-21 11:06] VITALS: PULSE 78
[2017-12-21 11:17] LABS: BASO # 0.1 K/uL (0.0-0.2); BASO % 0.6 % (0.0-2.0); EOS # 0.3 K/uL (0.0-0.7); EOS % 3.5 % (0.0-4.0); HEMOGLOBIN 11.8 g/dL (12.0-18.0); LYMPH # 1.4 K/uL (1.0-4.3); LYMPH % 16.5 % (20.0-40.0); MEAN CELL VOLUME 84.9 fL (80.0-94.0); MEAN CORPUSCULAR HEMOGLOBIN 28.6 pg (27.0-31.0); MEAN CORPUSCULAR HGB CONC 33.7 g/dL (33.0-37.0); MEAN PLATELET VOLUME 10.4 fL (7.2-11.7); MONO # 0.8 K/uL (0.0-0.8); MONO % 9.6 % (0.0-10.0); NEUT # 5.8 K/uL (1.8-7.0); NEUT % 69.8 % (50.0-75.0); NRBC % 0.1 % (0.0-2.0); RBC 4.11 Mil/uL (4.40-5.90); RED CELL DISTRIBUTION WIDTH 14.2 % (11.5-14.5); WHITE BLOOD COUNT 8.4 K/uL (4.8-10.8)
[2017-12-21 12:04] LABS: BLOOD UREA NITROGEN 8 mg/dL (9-20); GFR AFRICAN-AMERICAN > 60; GFR NON-AFRICAN AMERICAN > 60
[2017-12-21 12:05] LABS: ALB/GLOB RATIO 0.7 (1.0-2.1); ALBUMIN 2.7 g/dL (3.5-5.0); ALT/SGPT 26 U/L (21-72); AST/SGOT 35 U/L (17-59); CALCIUM 8.4 mg/dl (8.6-10.4)
--- NOTE | 2017-12-21 14:03 | CP.PCM.PN ---
Subjective - Date & Time of Evaluation Date of Evaluation: 12/21/17 Time of Evaluation: 14:02 - Subjective Subjective: PATIENT SEEN AND EXAMINED Objective - Vital Signs/Intake and Output Vital Signs (last 24 hours): Temp Pulse Resp BP Pulse Ox 98.1 F 78 20 146/75 95 12/21/17 10:30 12/21/17 10:30 12/21/17 10:30 12/21/17 10:30 12/21/17 10:30 Intake and Output: 12/21/17 12/21/17 06:59 18:59 Output Total 900 Balance -900 - Medications Medications: Current Medications Acetaminophen (Tylenol 325mg Tab) 650 mg PO Q4H PRN PRN Reason: Fever >100.4 F Acetylcysteine (Acetylcysteine 20%) 4 ml INH Q6H PRN PRN Reason: Cough and congestion Last Admin: 12/15/17 08:16 Dose: 4 ml Albuterol/Ipratropium (Duoneb 3 Mg/0.5 Mg (3 Ml) Ud) 3 ml INH RQ4 PRN PRN Reason: Cough Aspirin (Ecotrin) 81 mg PO DAILY [facility] Last Admin: 12/21/17 10:56 Dose: 81 mg Clopidogrel Bisulfate (Plavix) 75 mg PO DAILY [facility] Last Admin: 12/21/17 10:56 Dose: 75 mg Dextrose (Dextrose 50% Inj) 0 ml IV STAT PRN; Protocol PRN Reason: Hypoglycemia Protocol Dextrose (Glutose 15) 15 gm PO ONCE PRN; Protocol PRN Reason: Hypoglycemia Protocol Famotidine (Pepcid) 20 mg PO DAILY [facility] Last Admin: 12/21/17 10:56 Dose: 20 mg Finasteride (Proscar) 5 mg PO DAILY [facility] Last Admin: 12/21/17 10:55 Dose: 5 mg Glucagon (Glucagen Diagnostic Kit) 1 mg IM STAT PRN; Protocol PRN Reason: Hypoglycemia Protocol Heparin Sodium (Porcine) (Heparin) 5,000 units SC Q12 [facility] Last Admin: 12/21/17 10:55 Dose: 5,000 units Azithromycin 500 mg/ Sodium (Chloride) 250 mls @ 250 mls/hr IVPB Q24H [facility] PRN Reason: Protocol Last Admin: 12/20/17 11:55 Dose: 250 mls/hr Piperacillin Sod/Tazobactam (Sod 3.375 gm/ Dextrose) 50 mls @ 50 mls/hr IVPB Q6H [facility] PRN Reason: Protocol Last Admin: 12/21/17 06:18 Dose: 50 mls/hr Dextrose (Dextrose 5% In Water 1000 Ml) 1,000 mls @ 0 mls/hr IV .Q0M PRN; Protocol; Per Protocol PRN Reason: Hypoglycemia Protocol Losartan Potassium (Cozaar) 25 mg PO DAILY [facility] Last Admin: 12/21/17 10:58 Dose: 25 mg Magnesium Hydroxide (Milk Of Magnesia) 30 ml PO HS [facility] Last Admin: 12/20/17 21:52 Dose: Not Given Metoprolol Succinate (Toprol Xl) 12.5 mg PO DAILY [facility] Last Admin: 12/21/17 10:57 Dose: 12.5 mg Saccharomyces Boulardii (Florastor) 250 mg PO BID [facility] Last Admin: 12/21/17 10:55 Dose: 250 mg Tamsulosin HCl (Flomax) 0.4 mg PO DAILY [facility] Last Admin: 12/21/17 10:56 Dose: 0.4 mg Valproate Sodium (Depakene Cap) 250 mg PO BID [facility] Last Admin: 12/21/17 10:57 Dose: 250 mg Vitamin A (Vitamin A & D Oint Ud Foilpak) 4 ea TOP BID [facility] Last Admin: 12/21/17 10:57 Dose: 4 ea - Labs Labs: 12/21/17 11:09 12/21/17 11:09 PT 16.9 SECONDS (9.7-12.2) H 12/19/17 12:07 INR 1.5 12/19/17 12:07 APTT 65 SECONDS (21-34) H D 12/19/17 12:07 Assessment and Plan - Assessment and Plan (Free Text) Assessment: PLACE UNDER THE SERVICE OF DR FORRESTER AT [facility]---CALL FOR ADMITTING ORDER CONTINUE ALL YOUR HOME MEDICATION ORDER PER DR DON CONTINUE ASIPRIN ONLY CONTINUE [facility] CATH CARE ORDER AND FACILITY PROTOCOL\ THIS CATH SHOULD NOT BE REMOVED AT ANY TIME DURING THIS CURRENT TIME / CAN PIERRE CHANGE BY UROLOGY PREFERABLY IN THE CYSTOSCOPY SUITE ACTIVITY TOLERATED AND FACILITY PROTOCOL CALL DR FORRESTER FOR FURTHER ORDER
--- NOTE | 2017-12-21 15:32 | CP.PCM.PN ---
Subjective - Date & Time of Evaluation Date of Evaluation: 12/21/17 Time of Evaluation: 10:20 - Subjective Subjective: patient seen and examined No shortness of breath or cough Afebrile patient refused Cardiac cath Objective - Vital Signs/Intake and Output Vital Signs (last 24 hours): Temp Pulse Resp BP Pulse Ox 98.1 F 78 20 146/75 95 12/21/17 10:30 12/21/17 10:30 12/21/17 10:30 12/21/17 10:30 12/21/17 10:30 Intake and Output: 12/21/17 12/21/17 06:59 18:59 Output Total 900 Balance -900 - Medications Medications: Current Medications Acetaminophen (Tylenol 325mg Tab) 650 mg PO Q4H PRN PRN Reason: Fever >100.4 F Acetylcysteine (Acetylcysteine 20%) 4 ml INH Q6H PRN PRN Reason: Cough and congestion Last Admin: 12/15/17 08:16 Dose: 4 ml Albuterol/Ipratropium (Duoneb 3 Mg/0.5 Mg (3 Ml) Ud) 3 ml INH RQ4 PRN PRN Reason: Cough Aspirin (Ecotrin) 81 mg PO DAILY [facility] Last Admin: 12/21/17 10:56 Dose: 81 mg Clopidogrel Bisulfate (Plavix) 75 mg PO DAILY [facility] Last Admin: 12/21/17 10:56 Dose: 75 mg Dextrose (Dextrose 50% Inj) 0 ml IV STAT PRN; Protocol PRN Reason: Hypoglycemia Protocol Dextrose (Glutose 15) 15 gm PO ONCE PRN; Protocol PRN Reason: Hypoglycemia Protocol Famotidine (Pepcid) 20 mg PO DAILY [facility] Last Admin: 12/21/17 10:56 Dose: 20 mg Finasteride (Proscar) 5 mg PO DAILY [facility] Last Admin: 12/21/17 10:55 Dose: 5 mg Glucagon (Glucagen Diagnostic Kit) 1 mg IM STAT PRN; Protocol PRN Reason: Hypoglycemia Protocol Heparin Sodium (Porcine) (Heparin) 5,000 units SC Q12 [facility] Last Admin: 12/21/17 10:55 Dose: 5,000 units Azithromycin 500 mg/ Sodium (Chloride) 250 mls @ 250 mls/hr IVPB Q24H [facility] PRN Reason: Protocol Last Admin: 12/20/17 11:55 Dose: 250 mls/hr Piperacillin Sod/Tazobactam (Sod 3.375 gm/ Dextrose) 50 mls @ 50 mls/hr IVPB Q6H [facility] PRN Reason: Protocol Last Admin: 12/21/17 06:18 Dose: 50 mls/hr Dextrose (Dextrose 5% In Water 1000 Ml) 1,000 mls @ 0 mls/hr IV .Q0M PRN; Protocol; Per Protocol PRN Reason: Hypoglycemia Protocol Losartan Potassium (Cozaar) 25 mg PO DAILY [facility] Last Admin: 12/21/17 10:58 Dose: 25 mg Magnesium Hydroxide (Milk Of Magnesia) 30 ml PO HS [facility] Last Admin: 12/20/17 21:52 Dose: Not Given Metoprolol Succinate (Toprol Xl) 12.5 mg PO DAILY [facility] Last Admin: 12/21/17 10:57 Dose: 12.5 mg Saccharomyces Boulardii (Florastor) 250 mg PO BID [facility] Last Admin: 12/21/17 10:55 Dose: 250 mg Tamsulosin HCl (Flomax) 0.4 mg PO DAILY [facility] Last Admin: 12/21/17 10:56 Dose: 0.4 mg Valproate Sodium (Depakene Cap) 250 mg PO BID [facility] Last Admin: 12/21/17 10:57 Dose: 250 mg Vitamin A (Vitamin A & D Oint Ud Foilpak) 4 ea TOP BID [facility] Last Admin: 12/21/17 10:57 Dose: 4 ea - Labs Labs: 12/21/17 11:09 12/21/17 11:09 PT 16.9 SECONDS (9.7-12.2) H 12/19/17 12:07 INR 1.5 12/19/17 12:07 APTT 65 SECONDS (21-34) H D 12/19/17 12:07 - Head Exam Head Exam: ATRAUMATIC, NORMOCEPHALIC - ENT Exam ENT Exam: Mucous Membranes Moist - Respiratory Exam Respiratory Exam: Clear to Ausculation Bilateral - Cardiovascular Exam Cardiovascular Exam: REGULAR RHYTHM - GI/Abdominal Exam GI & Abdominal Exam: Soft Assessment and Plan (1) Pneumonia involving right lung Assessment & Plan: clinically much improved Stable for transfer to custodial Status: Acute (2) Non-STEMI (non-ST elevated myocardial infarction) Status: Acute (3) COPD (chronic obstructive pulmonary disease) Status: Acute
[2017-12-21 17:44] VITALS: BP 134/72; TEMP 98; O2SAT 97
--- NOTE | 2017-12-21 23:28 | CP.PCM.DIS ---
Provider - Provider Date of Admission: 12/13/17 15:00 Attending physician: Liborio Hunter MD Time Spent in preparation of Discharge (in minutes): 45 Diagnosis - Discharge Diagnosis (1) Non-STEMI (non-ST elevated myocardial infarction) Status: Acute (2) BPH (benign prostatic hyperplasia) Status: Acute (3) Hypertension Status: Acute (4) Tracheobronchitis Status: Acute Hospital Course - Lab Results Lab Results: Micro Results 12/13/17 14:00 Blood Blood Culture - Final NO GROWTH AFTER 5 DAYS 12/13/17 14:00 Blood Gram Stain - Final TEST NOT PERFORMED 12/14/17 05:48 Blood Blood Culture - Final NO GROWTH AFTER 5 DAYS 12/14/17 05:48 Blood Gram Stain - Final TEST NOT PERFORMED 12/16/17 12:48 Naris MRSA Culture - Final MRSA NOT DETECTED 12/14/17 17:45 Other: Please Indicate Mycobacterial Culture - Preliminary 12/14/17 16:37 Naris MRSA Culture (Admit) - Final MRSA NOT DETECTED 12/13/17 12:35 Urine Urine Culture - Final Escherichia Coli 12/14/17 05:05 Urine Urine Culture - Final No Growth (<1,000 CFU/ML) Most Recent Lab Values WBC 8.4 K/uL (4.8-10.8) 12/21/17 11:09 RBC 4.11 Mil/uL (4.40-5.90) L 12/21/17 11:09 Hgb 11.8 g/dL (12.0-18.0) L 12/21/17 11:09 Hct 34.9 % (35.0-51.0) L 12/21/17 11:09 MCV 84.9 fL (80.0-94.0) 12/21/17 11:09 MCH 28.6 pg (27.0-31.0) 12/21/17 11:09 MCHC 33.7 g/dL (33.0-37.0) 12/21/17 11:09 RDW 14.2 % (11.5-14.5) 12/21/17 11:09 Plt Count 206 K/uL (130-400) 12/21/17 11:09 MPV 10.4 fL (7.2-11.7) 12/21/17 11:09 Neut % (Auto) 69.8 % (50.0-75.0) 12/21/17 11:09 Lymph % (Auto) 16.5 % (20.0-40.0) L 12/21/17 11:09 [place] % (Auto) 9.6 % (0.0-10.0) 12/21/17 11:09 Eos % (Auto) 3.5 % (0.0-4.0) 12/21/17 11:09 Baso % (Auto) 0.6 % (0.0-2.0) 12/21/17 11:09 Neut # (Auto) 5.8 K/uL (1.8-7.0) 12/21/17 11:09 Lymph # (Auto) 1.4 K/uL (1.0-4.3) 12/21/17 11:09 [place] # (Auto) 0.8 K/uL (0.0-0.8) 12/21/17 11:09 Eos # (Auto) 0.3 K/uL (0.0-0.7) 12/21/17 11:09 Baso # (Auto) 0.1 K/uL (0.0-0.2) 12/21/17 11:09 Neutrophils % (Manual) 76 % (50-75) H 12/13/17 12:18 Band Neutrophils % 1 % (0-2) 12/13/17 12:18 Lymphocytes % (Manual) 10 % (20-40) L 12/13/17 12:18 Monocytes % (Manual) 13 % (0-10) H 12/13/17 12:18 Platelet Estimate Normal (NORMAL) 12/13/17 12:18 Ovalocytes Slight 12/13/17 12:18 ESR 60 mm/hr (0-15) H 12/15/17 09:43 PT 16.9 SECONDS (9.7-12.2) H 12/19/17 12:07 INR 1.5 12/19/17 12:07 APTT 65 SECONDS (21-34) H D 12/19/17 12:07 Sodium 141 mmol/L (132-148) 12/21/17 11:09 Potassium 4.0 mmol/L (3.6-5.2) 12/21/17 11:09 Chloride 105 mmol/L (98-107) 12/21/17 11:09 Carbon Dioxide 30 mmol/L (22-30) 12/21/17 11:09 Anion Gap 10 (10-20) 12/21/17 11:09 BUN 8 mg/dL (9-20) L 12/21/17 11:09 Creatinine 1.1 mg/dL (0.8-1.5) 12/21/17 11:09 Est GFR ( Amer) > 60 12/21/17 11:09 Est GFR (Non-Af Amer) > 60 12/21/17 11:09 POC Glucose (mg/dL) 98 mg/dL (65-110) 12/21/17 17:26 Random Glucose 78 mg/dL (75-110) 12/21/17 11:09 Calcium 8.4 mg/dl (8.6-10.4) L 12/21/17 11:09 Phosphorus 2.6 mg/dL (2.5-4.5) 12/19/17 07:24 Magnesium 1.8 mg/dL (1.6-2.3) 12/19/17 07:24 Total Bilirubin 0.9 mg/dL (0.2-1.3) 12/21/17 11:09 AST 35 U/L (17-59) 12/21/17 11:09 ALT 26 U/L (21-72) 12/21/17 11:09 Alkaline Phosphatase 48 U/L (38-126) 12/21/17 11:09 Total Creatine Kinase 193 U/L (55-170) H 12/13/17 20:24 CK-MB (Mass) 8.97 ng/mL (0.0-3.38) H 12/13/17 20:24 Troponin I 8.3100 ng/mL (0.00-0.120) H* 12/14/17 12:17 C-Reactive Protein 77.10 mg/L (0.0-9.9) H 12/15/17 09:43 Total Protein 6.4 g/dL (6.3-8.3) 12/21/17 11:09 Albumin 2.7 g/dL (3.5-5.0) L 12/21/17 11:09 Globulin 3.7 gm/dL (2.2-3.9) 12/21/17 11:09 Albumin/Globulin Ratio 0.7 (1.0-2.1) L 12/21/17 11:09 Urine Color Sandhya (YELLOW) 12/13/17 12:35 Urine Clarity Turbid (Clear) 12/13/17 12:35 Urine pH 5.0 (5.0-8.0) 12/13/17 12:35 Ur Specific [place] 1.021 (1.003-1.030) 12/13/17 12:35 Urine Protein 2+ mg/dL (NEGATIVE) H 12/13/17 12:35 Urine Glucose (UA) Normal mg/dL (Normal) 12/13/17 12:35 Urine Ketones 1+ mg/dL (NEGATIVE) H 12/13/17 12:35 Urine Blood 3+ (NEGATIVE) H 12/13/17 12:35 Urine Nitrate Positive (NEGATIVE) H 12/13/17 12:35 Urine Bilirubin Negative (NEGATIVE) 12/13/17 12:35 Urine Urobilinogen 4.0 mg/dL (0.2-1.0) 12/13/17 12:35 Ur Leukocyte Esterase 3+ Valeriano/uL (Negative) H 12/13/17 12:35 Urine WBC (Auto) 172 /hpf (0-5) H 12/13/17 12:35 Urine RBC (Auto) 27 /hpf (0-3) H 12/13/17 12:35 Ur Squamous Epith Cells < 1 /hpf (0-5) 12/13/17 12:35 Urine Bacteria Many (<OCC) H 12/13/17 12:35 TB Test (QFT) Nil 0.03 IU/mL 12/14/17 17:41 TB Test Mitogen - Nil 4.94 IU/mL 12/14/17 17:41 TB Test TB - Nil 0.00 IU/mL 12/14/17 17:41 TB Test (QFT) Negative (Negative) 12/14/17 17:41 - Hospital Course Hospital Course: patient seen and examined No shortness of breath or cough Afebrile patient refused Cardiac cath Discharge Exam - Head Exam Head Exam: ATRAUMATIC, NORMOCEPHALIC Discharge Plan - Follow Up Plan Condition: GOOD Disposition: HOME/ ROUTINE Instructions: Heart Failure, Adult, Acute Bronchitis, Adult (DC), Heart Attack (DC), Pneumonia, Adult (DC), Urinary Tract Infection in Men (DC) Additional Instructions: PLACE UNDER THE SERVICE OF DR HUNTER AT [facility]---CALL FOR ADMITTING ORDER CONTINUE ALL YOUR HOME MEDICATION ORDER PER DR RAMIREZ CONTINUE ASIPRIN ONLY CONTINUE [facility]URN CATH CARE ORDER AND FACILITY PROTOCOL\ THIS CATH SHOULD NOT BE REMOVED AT ANY TIME DURING THIS CURRENT TIME / CAN PIERRE CHANGE BY UROLOGY PREFERABLY IN THE CYSTOSCOPY SUITE ACTIVITY TOLERATED AND FACILITY PROTOCOL CALL DR HUNTER FOR FURTHER ORDER Referrals: Norman Chiang MD [Staff Provider] - Lazaro Perez MD [Staff Provider] - Sushil Ramirez MD [Staff Provider] - Liborio Hunter MD [Staff Provider] -
== END 2017-12-21 19:51 | DRG 280 ==
LOC: C.ER 10:33 → C.9E 15:00 → C.6T 20:28 → C.9I 12-14 14:19 → C.5S 12-16 12:37
PROVIDERS: ADMIT Internal Medicine; ATTEND Internal Medicine
DX: I21.4 Non-ST elevation (NSTEMI) myocardial infarction (principal); J18.9 Pneumonia, unspecified organism; F20.0 Paranoid schizophrenia; I13.0 Hypertensive heart and chronic kidney disease with heart failure and stage 1 through stage 4 chronic kidney disease, or unspecified chronic kidney disease; J44.0 Chronic obstructive pulmonary disease with (acute) lower respiratory infection; J98.11 Atelectasis; N39.0 Urinary tract infection, site not specified; E78.5 Hyperlipidemia, unspecified; F31.9 Bipolar disorder, unspecified; I50.9 Heart failure, unspecified; K80.20 Calculus of gallbladder without cholecystitis without obstruction; N18.9 Chronic kidney disease, unspecified; N40.0 Benign prostatic hyperplasia without lower urinary tract symptoms; Z66 Do not resuscitate; Z99.81 Dependence on supplemental oxygen; Z91.81 History of falling; E78.00 Pure hypercholesterolemia, unspecified; K76.89 Other specified diseases of liver

== ENCOUNTER 2017-12-25 13:54 | Inpatient (IN) | payer MEDICARE, MEDICAID ==
[2017-12-25 13:55] VITALS: BMI 26.4
--- NOTE | 2017-12-25 14:40 | C.PDOC ---
History Of Present Illness 72 y/o M c PMHx HTN, HLD, CHF, BPH, indwelling watts, schizophrenia sent from [facility] for hematuria in watts bag. Patient denies fever, chest pain, back pain, vomiting. Time Seen by Provider: 12/25/17 14:34 Chief Complaint (Nursing): Male Genitourinary Past Medical History Vital Signs: Last Vital Signs Temp 97.5 F L 12/25/17 14:16 Pulse 65 12/25/17 15:45 Resp 18 12/25/17 15:45 BP 95/50 L 12/25/17 15:45 Pulse Ox 98 12/25/17 15:49 - Medical History PMH: Anxiety, Asthma, Benign Prostatic Hyperplasia (bladder problem), Bipolar Disorder, CHF, COPD, Depression, HTN, Hypercholesterolemia, Hyperlipidemia, Chronic Kidney Disease (renal insufficiency), Schizophrenia Denies: Diabetes, Hepatitis, Sexually Transmitted Disease Surgical History: Tonsillectomy - [facility] Procedures EXCIS DEBRIDE OF WOUND, INFECT, OR BURN (08/17/14) OCCUPATIONAL THERAPY (08/28/14) PHYSICAL THERAPY NEC (08/28/14) Family History: States: Unknown Family Hx - Social History Hx Tobacco Use: No Hx Alcohol Use: No Hx Substance Use: No - Immunization History Hx Tetanus Toxoid Vaccination: No Hx Influenza Vaccination: No Hx Pneumococcal Vaccination: No Review Of Systems Except As Marked, All Systems Reviewed And Found Negative. Constitutional: Negative for: Fever Cardiovascular: Negative for: Chest Pain Physical Exam - Physical Exam Additional Physical Exam Comments: Gen: NAD Head: NC/AT Eyes: PERRL ENT: MMM Neck: Supple Chest: No tenderness CV: Regular rate. Radial pulses 2+ Lungs: CTA b/l Abd: Soft, NT : Watts in place, gross blood in watts bag Back: No CVA tenderness Extremities: No swelling or tenderness Skin: No rash Neuro: Alert, no focal deficit ED Course And Treatment - Laboratory Results Result Diagrams: 12/25/17 15:00 12/25/17 15:00 O2 Sat by Pulse Oximetry: 98 - Other Rad CXR X-Ray: Viewed By Me, Read By Radiologist Interpretation: HISTORY: hematuria. COMPARISON: No prior. FINDINGS: LUNGS: There is improving airspace disease in the peripheral right upper lobe. PLEURA: Persistent small pleural effusions, worse on the right, no pneumothorax apparent. CARDIOVASCULAR: Normal. OSSEOUS STRUCTURES: No significant abnormalities. VISUALIZED UPPER ABDOMEN: Normal. OTHER FINDINGS: None. IMPRESSION: Improving right upper lobe airspace disease. Persistent small pleural effusions, worse on the right. No pneumothorax. Medical Decision Making Medical Decision Making: EKG Sinus rhythm, 70 bpm, no ST elevations Blood pressure stable. UTI found on labs, no leukocytosis or lactic acidosis. Cefepime ordered, closely watch on telemetry. Dr. Hunter accepts patient to his service. Disposition Discussed With : Liborio Hunter Doctor Will See Patient In The: Hospital - Disposition Referrals: [facility] [Outside] Disposition: HOSPITALIZED Disposition Time: 15:49 Condition: GUARDED Forms: [facility] (Japanese) - Clinical Impression Clinical Impression: UTI (lower urinary tract infection), Gross hematuria
--- NOTE | 2017-12-25 15:11 | RAD ---
HISTORY: hematuria COMPARISON: No prior. FINDINGS: LUNGS: There is improving airspace disease in the peripheral right upper lobe. PLEURA: Persistent small pleural effusions, worse on the right, no pneumothorax apparent. CARDIOVASCULAR: Normal. OSSEOUS STRUCTURES: No significant abnormalities. VISUALIZED UPPER ABDOMEN: Normal. OTHER FINDINGS: None. IMPRESSION: Improving right upper lobe airspace disease. Persistent small pleural effusions, worse on the right. No pneumothorax.
[2017-12-25 15:12] LABS: BASO # 0.1 K/uL (0.0-0.2); BASO % 0.7 % (0.0-2.0); EOS # 0.1 K/uL (0.0-0.7); EOS % 1.7 % (0.0-4.0); HEMOGLOBIN 11.9 g/dL (12.0-18.0); LYMPH # 1.3 K/uL (1.0-4.3); LYMPH % 14.9 % (20.0-40.0); MEAN CELL VOLUME 85.6 fL (80.0-94.0); MEAN CORPUSCULAR HGB CONC 32.7 g/dL (33.0-37.0); MEAN PLATELET VOLUME 10.5 fL (7.2-11.7); MONO % 11.1 % (0.0-10.0); NEUT # 6.2 K/uL (1.8-7.0); NEUT % 71.6 % (50.0-75.0); RBC 4.25 Mil/uL (4.40-5.90); RED CELL DISTRIBUTION WIDTH 14.8 % (11.5-14.5); WHITE BLOOD COUNT 8.6 K/uL (4.8-10.8)
[2017-12-25 15:15] LABS: VENOUS BLOOD GAS BASE EXCESS 4.9 mmol/L (0.0-2.0); VENOUS BLOOD GAS PCO2 53 mmHg (40-60); VENOUS BLOOD GAS PO2 15 mm/Hg (30-55); VENOUS BLOOD PH 7.38 (7.32-7.43)
[2017-12-25 15:22] LABS: INR 1.5; PROTHROMBIN TIME 16.9 SECONDS (9.7-12.2)
[2017-12-25 15:35] LABS: ALB/GLOB RATIO 0.8 (1.0-2.1); ALBUMIN 3.3 g/dL (3.5-5.0); CALCIUM 8.9 mg/dl (8.6-10.4)
[2017-12-25 15:37] LABS: CK-MB 4.72 ng/mL (0.0-3.38); TROPONIN I 0.067 ng/mL (0.00-0.120)
[2017-12-25 15:44] LABS: URINE BILIRUBIN NEGATIVE (NEGATIVE); URINE BLOOD 3+ (NEGATIVE); URINE CLARITY Hazy (Clear); URINE COLOR Amber (YELLOW); URINE GLUCOSE (UA) NORMAL (Normal); URINE LEUKOCYTE ESTERASE 2+ Leu/uL (Negative); URINE PROTEIN 2+ mg/dL (NEGATIVE); URINE UROBILINOGEN NORMAL mg/dL (0.2-1.0); WBC CLUMPS MANY /hpf
[2017-12-25] MEDS ORDERED: Cefepime IV 1 gm in Dextrose 1 GM/50 ML BAG IVPB STA (16:11)
[2017-12-25] MEDS ORDERED: Magnesium Hydroxide Susp 30 ml UD PO PRN (17:15)
[2017-12-25] MEDS ORDERED: Acetaminophen 650mg/20.3ml solution UD ONE (17:46)
[2017-12-25] MEDS ORDERED: Divalproex 250 mg DR Tab PO ONE (17:52)
[2017-12-25] MEDS: Vitamins A & D Oint UD Foilpak TOP SCH (18:04)
[2017-12-25] MEDS: Cefepime IV 1 gm in Dextrose 1 GM/50 ML BAG IVPB SCH (22:53)
--- NOTE | 2017-12-26 00:38 | CP.PCM.HP ---
History of Present Illness - History of Present Illness History of Present Illness: History Of Present Illness 72 y/o M c PMHx HTN, HLD, CHF, BPH, indwelling watts, schizophrenia sent from [facility] for hematuria in watts bag. Patient denies fever, chest pain, back pain, vomiting. Past Patient History - Infectious Disease Hx of Infectious Diseases: None - Tetanus Immunizations Tetanus Immunization: Unknown - Past Medical History & Family History Past Medical History?: Yes - Past Social History Smoking Status: Never Smoked - CARDIAC Hx Congestive Heart Failure: Yes Hx Hypercholesterolemia: Yes Hx Hypertension: Yes - PULMONARY Hx Asthma: Yes Hx Chronic Obstructive Pulmonary Disease (COPD): Yes - HEENT Hx HEENT Problems: Yes Hx Cataracts: Yes - RENAL Hx Chronic Kidney Disease: Yes (renal insufficiency) - INTEGUMENTARY Hx Dermatological Problems: No - GASTROINTESTINAL Hx Gastrointestinal Disorders: No - GENITOURINARY/GYNECOLOGICAL Hx Sexually Transmitted Disorders: No - PSYCHIATRIC Hx Anxiety: Yes Hx Bipolar Disorder: Yes Hx Depression: Yes Hx Schizophrenia: Yes Hx Substance Use: No - SURGICAL HISTORY Hx Tonsillectomy: Yes - ANESTHESIA Hx Anesthesia: Yes Hx Anesthesia Reactions: No Hx Malignant Hyperthermia: No Meds Allergies/Adverse Reactions: Allergies Allergy/AdvReac Type Severity Reaction Status Date / Time No Known Allergies Allergy Verified 12/25/17 14:22 Results - Vital Signs Recent Vital Signs: Last Vital Signs Temp 97.1 F L 12/26/17 00:25 Pulse 83 12/26/17 00:25 Resp 20 12/26/17 00:25 BP 124/66 12/26/17 00:25 Pulse Ox 100 12/26/17 00:25 - Labs Result Diagrams: 12/25/17 15:00 12/25/17 15:00 Labs: Laboratory Results - last 24 hr 12/25/17 12/25/17 12/25/17 15:00 15:00 15:00 WBC 8.6 RBC 4.25 L Hgb 11.9 L Hct 36.3 MCV 85.6 MCH 28.0 MCHC 32.7 L RDW 14.8 H Plt Count 179 MPV 10.5 Neut % (Auto) 71.6 Lymph % (Auto) 14.9 L [place] % (Auto) 11.1 H Eos % (Auto) 1.7 Baso % (Auto) 0.7 Neut # (Auto) 6.2 Lymph # (Auto) 1.3 [place] # (Auto) 1.0 H Eos # (Auto) 0.1 Baso # (Auto) 0.1 PT 16.9 H INR 1.5 APTT 32 pO2 VBG pH VBG pCO2 VBG HCO3 VBG Total CO2 VBG O2 Sat (Calc) VBG Base Excess VBG Potassium Glucose Lactate Sodium 143 Potassium 4.0 Chloride 104 Carbon Dioxide 30 Anion Gap 13 BUN 24 H Creatinine 1.6 H Est GFR ( Amer) 52 Est GFR (Non-Af Amer) 43 Random Glucose 86 Calcium 8.9 Total Bilirubin 0.7 AST 29 ALT 21 Alkaline Phosphatase 60 Total Creatine Kinase 101 CK-MB (Mass) 4.72 H Troponin I 0.0670 NT-Pro-B Natriuret Pep 1310 H Total Protein 7.2 Albumin 3.3 L D Globulin 3.9 Albumin/Globulin Ratio 0.8 L Venous Blood Potassium Urine Color Urine Clarity Urine pH Ur Specific [place] Urine Protein Urine Glucose (UA) Urine Ketones Urine Blood Urine Nitrate Urine Bilirubin Urine Urobilinogen Ur Leukocyte Esterase Urine WBC (Auto) Urine RBC (Auto) Urine WBC Clumps (Auto) Blood Type Antibody Screen 12/25/17 12/25/17 12/25/17 15:00 15:11 15:30 WBC RBC Hgb Hct MCV MCH MCHC RDW Plt Count MPV Neut % (Auto) Lymph % (Auto) [place] % (Auto) Eos % (Auto) Baso % (Auto) Neut # (Auto) Lymph # (Auto) [place] # (Auto) Eos # (Auto) Baso # (Auto) PT INR APTT pO2 15 L VBG pH 7.38 VBG pCO2 53 VBG HCO3 26.6 VBG Total CO2 33.0 H VBG O2 Sat (Calc) 25.3 L VBG Base Excess 4.9 H VBG Potassium 3.9 Glucose 80 Lactate 1.1 Sodium 140.0 Potassium Chloride 105.0 Carbon Dioxide Anion Gap BUN Creatinine Est GFR ( Amer) Est GFR (Non-Af Amer) Random Glucose Calcium Total Bilirubin AST ALT Alkaline Phosphatase Total Creatine Kinase CK-MB (Mass) Troponin I NT-Pro-B Natriuret Pep Total Protein Albumin Globulin Albumin/Globulin Ratio Venous Blood Potassium 3.9 Urine Color Sandhya Urine Clarity Hazy Urine pH 6.0 Ur Specific [place] 1.020 Urine Protein 2+ H Urine Glucose (UA) Normal Urine Ketones Negative Urine Blood 3+ H Urine Nitrate Negative Urine Bilirubin Negative Urine Urobilinogen Normal Ur Leukocyte Esterase 2+ H Urine WBC (Auto) 34 H Urine RBC (Auto) 1774 H Urine WBC Clumps (Auto) Many H Blood Type A POSITIVE Antibody Screen Negative
[2017-12-26] MEDS: Cefepime IV 1 gm in Dextrose 1 GM/50 ML BAG IVPB SCH ×3 (07:32→22:04)
[2017-12-26] MEDS: Vitamins A & D Oint UD Foilpak TOP SCH ×2 (09:46→17:36)
[2017-12-26] MEDS: Metoprolol Succinate 12.5 mg XL Tab PO SCH (09:59)
[2017-12-26] MEDS ORDERED: Enoxaparin 30 mg Syringe SC SCH (10:00)
[2017-12-26] MEDS: Enoxaparin 40 mg Syringe SC SCH (10:41)
[2017-12-26 11:42] VITALS: RESP 20
--- NOTE | 2017-12-27 05:59 | CP.PCM.PN ---
Subjective - Date & Time of Evaluation Date of Evaluation: 12/26/17 Time of Evaluation: 20:00 - Subjective Subjective: Pt seen and examined at bedside Objective - Vital Signs/Intake and Output Vital Signs (last 24 hours): Temp Pulse Resp BP Pulse Ox 97.9 F 87 20 120/67 96 12/27/17 00:00 12/27/17 00:00 12/27/17 00:00 12/27/17 00:00 12/27/17 00:00 Intake and Output: 12/26/17 12/27/17 18:59 06:59 Intake Total 350 250 Output Total 300 400 Balance 50 -150 - Medications Medications: Current Medications Acetaminophen (Tylenol 325mg Tab) 650 mg PO Q4H [facility] Last Admin: 12/27/17 05:27 Dose: 650 mg Aspirin (Ecotrin) 81 mg PO DAILY [facility] Last Admin: 12/26/17 09:58 Dose: 81 mg Enoxaparin Sodium (Lovenox) 40 mg SC DAILY [facility] Last Admin: 12/26/17 10:41 Dose: 40 mg Finasteride (Proscar) 5 mg PO DAILY [facility] Last Admin: 12/26/17 09:59 Dose: 5 mg Hydroxyzine HCl (Atarax) 10 mg PO Q6 [facility] Last Admin: 12/27/17 00:05 Dose: 10 mg Cefepime HCl (Maxipime Iv 1 Gm Premix) 1 gm in 50 mls @ 100 mls/hr IVPB Q8H [facility] PRN Reason: Protocol Last Admin: 12/26/17 22:04 Dose: 100 mls/hr Losartan Potassium (Cozaar) 25 mg PO DAILY [facility] Last Admin: 12/26/17 09:58 Dose: 25 mg Magnesium Hydroxide (Milk Of Magnesia) 30 ml PO HS PRN PRN Reason: if no BM for 2 days Metoprolol Succinate (Toprol Xl) 12.5 mg PO DAILY [facility] Last Admin: 12/26/17 09:59 Dose: 12.5 mg Mirtazapine (Remeron) 15 mg PO HS [facility] Last Admin: 12/26/17 22:00 Dose: 15 mg Rosuvastatin Calcium (Crestor) 5 mg PO HS [facility] Last Admin: 12/26/17 21:45 Dose: 5 mg Tamsulosin HCl (Flomax) 0.4 mg PO DAILY [facility] Last Admin: 12/26/17 09:58 Dose: 0.4 mg Valproate Sodium (Depakene Cap) 250 mg PO BID [facility] Last Admin: 12/26/17 17:35 Dose: 250 mg Vitamin A (Vitamin A & D Oint Ud Foilpak) 4 ea TOP BID [facility] Last Admin: 12/26/17 17:36 Dose: 4 ea - Labs Labs: 12/25/17 15:00 12/25/17 15:00 PT 16.9 SECONDS (9.7-12.2) H 12/25/17 15:00 INR 1.5 12/25/17 15:00 APTT 32 SECONDS (21-34) 12/25/17 15:00 Assessment and Plan (1) Complicated UTI (urinary tract infection) Assessment & Plan: Complicated UTI due to indwelling Urinary catherer ESBL positive E.Coli Status: Acute
[2017-12-27] MEDS: Cefepime IV 1 gm in Dextrose 1 GM/50 ML BAG IVPB SCH (06:20)
[2017-12-27 06:53] LABS: BASO # 0.1 K/uL (0.0-0.2); BASO % 1.2 % (0.0-2.0); EOS # 0.3 K/uL (0.0-0.7); EOS % 3.9 % (0.0-4.0); HEMOGLOBIN 11.7 g/dL (12.0-18.0); LYMPH # 0.6 K/uL (1.0-4.3); LYMPH % 7.2 % (20.0-40.0); MEAN CORPUSCULAR HEMOGLOBIN 28.5 pg (27.0-31.0); MEAN CORPUSCULAR HGB CONC 32.8 g/dL (33.0-37.0); MEAN PLATELET VOLUME 10.3 fL (7.2-11.7); MONO % 11.4 % (0.0-10.0); NEUT # 6.6 K/uL (1.8-7.0); NEUT % 76.3 % (50.0-75.0); NRBC % 0.1 % (0.0-2.0); PLATELET COUNT 182 K/uL (130-400); RBC 4.09 Mil/uL (4.40-5.90); RED CELL DISTRIBUTION WIDTH 14.7 % (11.5-14.5); WHITE BLOOD COUNT 8.6 K/uL (4.8-10.8)
[2017-12-27 07:28] LABS: ALB/GLOB RATIO 0.8 (1.0-2.1); ALBUMIN 2.7 g/dL (3.5-5.0); ALT/SGPT 23 U/L (21-72); AST/SGOT 27 U/L (17-59); BLOOD UREA NITROGEN 21 mg/dL (9-20); CALCIUM 8.4 mg/dl (8.6-10.4); GFR AFRICAN-AMERICAN > 60; GFR NON-AFRICAN AMERICAN 60
[2017-12-27 10:06] LABS: ANISOCYTOSIS SLIGHT; EOSINOPHIL 5 % (0-4); HYPOCHROMIC SLIGHT; LYMPHOCYTE 8 % (20-40); MONOCYTE 10 % (0-10); NEUTROPHIL 80 % (50-75); PLATELET ESTIMATE NORMAL (NORMAL); POIKILOCYTOSIS SLIGHT; TOTAL CELLS COUNTED 100
[2017-12-27] MEDS: Enoxaparin 40 mg Syringe SC SCH (10:18)
[2017-12-27] MEDS: Metoprolol Succinate 12.5 mg XL Tab PO SCH (10:23)
[2017-12-27] MEDS: Vitamins A & D Oint UD Foilpak TOP SCH ×2 (10:25→18:28)
--- NOTE | 2017-12-27 11:29 | CP.PCM.CON ---
History of Present Illness - History of Present Illness History of Present Illness: 72 y/o M c PMHx HTN, HLD, CHF, BPH, indwelling watts, schizophrenia sent from [facility] for hematuria in watts bag. Patient denies fever, chest pain, back pain, vomiting. Urine + ESBL E Coli IV rx ordered - Medical History PMH: Anxiety, Asthma, Benign Prostatic Hyperplasia (bladder problem), Bipolar Disorder, CHF, COPD, Depression, HTN, Hypercholesterolemia, Hyperlipidemia, Chronic Kidney Disease (renal insufficiency), Schizophrenia Denies: Diabetes, Hepatitis, Sexually Transmitted Disease Surgical History: Tonsillectomy - [facility] Procedures EXCIS DEBRIDE OF WOUND, INFECT, OR BURN (08/17/14) OCCUPATIONAL THERAPY (08/28/14) PHYSICAL THERAPY NEC (08/28/14) Past Patient History - Infectious Disease Hx of Infectious Diseases: None - Tetanus Immunizations Tetanus Immunization: Unknown - Past Medical History & Family History Past Medical History?: Yes - Past Social History Smoking Status: Never Smoked - CARDIAC Hx Congestive Heart Failure: Yes Hx Hypercholesterolemia: Yes Hx Hypertension: Yes - PULMONARY Hx Asthma: Yes Hx Chronic Obstructive Pulmonary Disease (COPD): Yes - HEENT Hx HEENT Problems: Yes Hx Cataracts: Yes - RENAL Hx Chronic Kidney Disease: Yes (renal insufficiency) - INTEGUMENTARY Hx Dermatological Problems: No - MUSCULOSKELETAL/RHEUMATOLOGICAL Hx Falls: No - GASTROINTESTINAL Hx Gastrointestinal Disorders: No - GENITOURINARY/GYNECOLOGICAL Hx Prostate Problems: Yes (Benign Prostatic hyperplasia) Hx Sexually Transmitted Disorders: No - PSYCHIATRIC Hx Anxiety: Yes Hx Bipolar Disorder: Yes Hx Depression: Yes Hx Schizophrenia: Yes Hx Substance Use: No - SURGICAL HISTORY Hx Tonsillectomy: Yes - ANESTHESIA Hx Anesthesia: Yes Hx Anesthesia Reactions: No Hx Malignant Hyperthermia: No Meds Allergies/Adverse Reactions: Allergies Allergy/AdvReac Type Severity Reaction Status Date / Time No Known Allergies Allergy Verified 12/25/17 14:22 - Medications Medications: Current Medications Acetaminophen (Tylenol 325mg Tab) 650 mg PO Q4H [facility] Last Admin: 12/27/17 10:21 Dose: Not Given Aspirin (Ecotrin) 81 mg PO DAILY [facility] Last Admin: 12/27/17 10:23 Dose: 81 mg Enoxaparin Sodium (Lovenox) 40 mg SC DAILY [facility] Last Admin: 12/27/17 10:18 Dose: 40 mg Finasteride (Proscar) 5 mg PO DAILY [facility] Last Admin: 12/27/17 10:23 Dose: 5 mg Hydroxyzine HCl (Atarax) 10 mg PO Q6 [facility] Last Admin: 12/27/17 06:01 Dose: Not Given Meropenem 500 mg/ Sodium (Chloride) 100 mls @ 100 mls/hr IVPB Q8 [facility] PRN Reason: Protocol Losartan Potassium (Cozaar) 25 mg PO DAILY [facility] Last Admin: 12/27/17 10:23 Dose: 25 mg Magnesium Hydroxide (Milk Of Magnesia) 30 ml PO HS PRN PRN Reason: if no BM for 2 days Metoprolol Succinate (Toprol Xl) 12.5 mg PO DAILY [facility] Last Admin: 12/27/17 10:23 Dose: 12.5 mg Mirtazapine (Remeron) 15 mg PO HS [facility] Last Admin: 12/26/17 22:00 Dose: 15 mg Rosuvastatin Calcium (Crestor) 5 mg PO HS [facility] Last Admin: 12/26/17 21:45 Dose: 5 mg Tamsulosin HCl (Flomax) 0.4 mg PO DAILY [facility] Last Admin: 12/27/17 10:22 Dose: 0.4 mg Valproate Sodium (Depakene Cap) 250 mg PO BID [facility] Last Admin: 12/27/17 10:24 Dose: 250 mg Vitamin A (Vitamin A & D Oint Ud Foilpak) 4 ea TOP BID [facility] Last Admin: 12/27/17 10:25 Dose: 4 ea Results - Vital Signs Recent Vital Signs: Last Vital Signs Temp 98 F 12/27/17 07:50 Pulse 79 12/27/17 07:50 Resp 20 12/27/17 07:50 BP 113/66 12/27/17 07:50 Pulse Ox 98 12/27/17 07:50 - Labs Result Diagrams: 12/27/17 06:22 12/27/17 06:22 Labs: Laboratory Results - last 24 hr 12/27/17 12/27/17 06:22 06:22 WBC 8.6 RBC 4.09 L Hgb 11.7 L Hct 35.6 MCV 87.0 MCH 28.5 MCHC 32.8 L RDW 14.7 H Plt Count 182 MPV 10.3 Neut % (Auto) 76.3 H Lymph % (Auto) 7.2 L [place] % (Auto) 11.4 H Eos % (Auto) 3.9 Baso % (Auto) 1.2 Neut # (Auto) 6.6 Lymph # (Auto) 0.6 L [place] # (Auto) 1.0 H Eos # (Auto) 0.3 Baso # (Auto) 0.1 Neutrophils % (Manual) 80 H Lymphocytes % (Manual) 8 L Monocytes % (Manual) 10 Eosinophils % (Manual) 5 H Platelet Estimate Normal Hypochromasia (manual) Slight Poikilocytosis (manual Slight Anisocytosis (manual) Slight Sodium 143 Potassium 3.9 Chloride 106 Carbon Dioxide 29 Anion Gap 11 BUN 21 H Creatinine 1.2 Est GFR ( Amer) > 60 Est GFR (Non-Af Amer) 60 Random Glucose 64 L Calcium 8.4 L Total Bilirubin 0.8 AST 27 ALT 23 Alkaline Phosphatase 48 Total Protein 6.3 Albumin 2.7 L Globulin 3.6 Albumin/Globulin Ratio 0.8 L
--- NOTE | 2017-12-27 12:26 | CARD ---
APPROVED REPORT EKG Measurement Heart [id number] <Conclusion> Sinus rhythm with occasional prematur atrial complexes non specific st t changes. Abnormal ECG
[2017-12-27] MEDS: Meropenem 500 MG in Sodium Chloride 0.9% 100 ML IVPB SCH ×2 (14:52→22:20)
[2017-12-27 17:01] VITALS: O2SAT 96
--- NOTE | 2017-12-27 22:06 | CP.PCM.PN ---
Subjective - Date & Time of Evaluation Date of Evaluation: 12/27/17 Time of Evaluation: 18:40 - Subjective Subjective: 72 y/o M c PMHx HTN, HLD, CHF, BPH, indwelling watts, schizophrenia sent from [facility] for hematuria in watts bag. Patient denies fever, chest pain, back pain, vomiting. Urine + ESBL E Coli IV rx ordered Objective - Vital Signs/Intake and Output Vital Signs (last 24 hours): Temp Pulse Resp BP Pulse Ox 98.3 F 79 20 115/62 96 12/27/17 15:30 12/27/17 15:30 12/27/17 15:30 12/27/17 15:30 12/27/17 15:30 Intake and Output: 12/27/17 12/28/17 18:59 06:59 Intake Total 550 Output Total 250 Balance 300 - Medications Medications: Current Medications Acetaminophen (Tylenol 325mg Tab) 650 mg PO Q4H [facility] Last Admin: 12/27/17 14:00 Dose: Not Given Aspirin (Ecotrin) 81 mg PO DAILY [facility] Last Admin: 12/27/17 10:23 Dose: 81 mg Enoxaparin Sodium (Lovenox) 40 mg SC DAILY [facility] Last Admin: 12/27/17 10:18 Dose: 40 mg Finasteride (Proscar) 5 mg PO DAILY [facility] Last Admin: 12/27/17 10:23 Dose: 5 mg Hydroxyzine HCl (Atarax) 10 mg PO Q6 [facility] Last Admin: 12/27/17 18:27 Dose: 10 mg Meropenem 500 mg/ Sodium (Chloride) 100 mls @ 100 mls/hr IVPB Q8 [facility] PRN Reason: Protocol Last Admin: 12/27/17 14:52 Dose: 100 mls/hr Losartan Potassium (Cozaar) 25 mg PO DAILY [facility] Last Admin: 12/27/17 10:23 Dose: 25 mg Magnesium Hydroxide (Milk Of Magnesia) 30 ml PO HS PRN PRN Reason: if no BM for 2 days Metoprolol Succinate (Toprol Xl) 12.5 mg PO DAILY [facility] Last Admin: 12/27/17 10:23 Dose: 12.5 mg Mirtazapine (Remeron) 15 mg PO HS [facility] Last Admin: 12/26/17 22:00 Dose: 15 mg Rosuvastatin Calcium (Crestor) 5 mg PO HS [facility] Last Admin: 12/26/17 21:45 Dose: 5 mg Tamsulosin HCl (Flomax) 0.4 mg PO DAILY [facility] Last Admin: 12/27/17 10:22 Dose: 0.4 mg Valproate Sodium (Depakene Cap) 250 mg PO BID [facility] Last Admin: 12/27/17 18:27 Dose: 250 mg Vitamin A (Vitamin A & D Oint Ud Foilpak) 4 ea TOP BID [facility] Last Admin: 12/27/17 18:28 Dose: 4 ea - Labs Labs: 12/27/17 06:22 12/27/17 06:22 PT 16.9 SECONDS (9.7-12.2) H 12/25/17 15:00 INR 1.5 12/25/17 15:00 APTT 32 SECONDS (21-34) 12/25/17 15:00 - Constitutional Appears: No Acute Distress - Head Exam Head Exam: ATRAUMATIC, NORMAL INSPECTION, NORMOCEPHALIC - Eye Exam Eye Exam: EOMI, Normal appearance, PERRL Pupil Exam: NORMAL ACCOMODATION, PERRL - Respiratory Exam Respiratory Exam: Clear to Ausculation Bilateral, NORMAL BREATHING PATTERN - Cardiovascular Exam Cardiovascular Exam: REGULAR RHYTHM, +S1, +S2. absent: Murmur - GI/Abdominal Exam GI & Abdominal Exam: Soft, Normal Bowel Sounds. absent: Tenderness Assessment and Plan (1) Gross hematuria Status: Acute (2) UTI (lower urinary tract infection) Assessment & Plan: Complicated UTI due to indwelling Urinary catherer ESBL positive E.Coli Status: Acute (3) BPH (benign prostatic hyperplasia) Status: Acute (4) COPD (chronic obstructive pulmonary disease) Status: Acute (5) Cellulitis Status: Acute (6) Cellulitis and abscess of leg Status: Acute
[2017-12-28] MEDS: Meropenem 500 MG in Sodium Chloride 0.9% 100 ML IVPB SCH ×3 (05:34→21:09)
--- NOTE | 2017-12-28 07:33 | PQF ---
PROVIDER RESPONSE TEXT: UTI due to watts catheter REVIEWER QUERY TEXT: Clarification of Clinical Diagnostic Findings Please clarify documentation or clinical relevance for the clinical / diagnostic findings or whether those are insignificant or unable to be further specified. Catheter-Related UTI Present on Admission Is this documented UTI a possible, probable or likely Catheter-Associated UTI? If so, please document your findings as a new note or addendum to any previous note except for the discharge summary if pre sent. The patient's Clinical Indicators include: 72 Y O M [place] with indwelling watts catheter with hematuria in watts bag Admitted with UTI, Hematuria UA? UA? 3+ blood / 2+ Leukocyte Esterase, WBC 34, Rbc 1774 12/27/17 Urine c/s? E.Coli?ESBL (+) Query created by: Jennifer Combs on 12/27/2017 11:37 AM Electronically signed by: Liborio Hunter MD 12/28/2017 7:29 AM
[2017-12-28] MEDS: Enoxaparin 40 mg Syringe SC SCH (09:40)
[2017-12-28] MEDS: Vitamins A & D Oint UD Foilpak TOP SCH ×2 (09:41→18:18)
[2017-12-28] MEDS: Metoprolol Succinate 12.5 mg XL Tab PO SCH (09:42)
[2017-12-28 11:37] LABS: SQUAMOUS EPITHIAL 1 /hpf (0-5); URINE BACTERIA OCC (<OCC); URINE BILIRUBIN NEGATIVE (NEGATIVE); URINE BLOOD 3+ (NEGATIVE); URINE CLARITY Hazy (Clear); URINE COLOR Yellow (YELLOW); URINE GLUCOSE (UA) NORMAL (Normal); URINE LEUKOCYTE ESTERASE 3+ Leu/uL (Negative); URINE PROTEIN 1+ mg/dL (NEGATIVE); URINE UROBILINOGEN NORMAL mg/dL (0.2-1.0)
--- NOTE | 2017-12-28 15:02 | CP.PCM.PN ---
Subjective - Date & Time of Evaluation Date of Evaluation: 12/28/17 Time of Evaluation: 09:00 - Subjective Subjective: IV rx in progress denies fever Objective - Vital Signs/Intake and Output Vital Signs (last 24 hours): Temp Pulse Resp BP Pulse Ox 98.1 F 73 20 137/77 96 12/28/17 08:17 12/28/17 08:17 12/28/17 08:17 12/28/17 08:17 12/28/17 08:17 Intake and Output: 12/28/17 12/28/17 06:59 18:59 Intake Total 740 160 Output Total 700 500 Balance 40 -340 - Medications Medications: Current Medications Acetaminophen (Tylenol 325mg Tab) 650 mg PO Q4H [facility] Last Admin: 12/28/17 13:47 Dose: 650 mg Aspirin (Ecotrin) 81 mg PO DAILY [facility] Last Admin: 12/28/17 09:42 Dose: 81 mg Enoxaparin Sodium (Lovenox) 40 mg SC DAILY [facility] Last Admin: 12/28/17 09:40 Dose: 40 mg Finasteride (Proscar) 5 mg PO DAILY [facility] Last Admin: 12/28/17 09:41 Dose: 5 mg Hydroxyzine HCl (Atarax) 10 mg PO Q6 [facility] Last Admin: 12/28/17 11:22 Dose: 10 mg Meropenem 500 mg/ Sodium (Chloride) 100 mls @ 100 mls/hr IVPB Q8 [facility] PRN Reason: Protocol Last Admin: 12/28/17 13:47 Dose: 100 mls/hr Losartan Potassium (Cozaar) 25 mg PO DAILY [facility] Last Admin: 12/28/17 09:42 Dose: 25 mg Magnesium Hydroxide (Milk Of Magnesia) 30 ml PO HS PRN PRN Reason: if no BM for 2 days Metoprolol Succinate (Toprol Xl) 12.5 mg PO DAILY [facility] Last Admin: 12/28/17 09:42 Dose: 12.5 mg Mirtazapine (Remeron) 15 mg PO HS [facility] Last Admin: 12/27/17 22:20 Dose: 15 mg Rosuvastatin Calcium (Crestor) 5 mg PO HS [facility] Last Admin: 12/27/17 22:20 Dose: 5 mg Tamsulosin HCl (Flomax) 0.4 mg PO DAILY [facility] Last Admin: 12/28/17 09:41 Dose: 0.4 mg Valproate Sodium (Depakene Cap) 250 mg PO BID [facility] Last Admin: 12/28/17 09:41 Dose: 250 mg Vitamin A (Vitamin A & D Oint Ud Foilpak) 4 ea TOP BID [facility] Last Admin: 12/28/17 09:41 Dose: 4 ea - Labs Labs: 12/27/17 06:22 12/27/17 06:22 PT 16.9 SECONDS (9.7-12.2) H 12/25/17 15:00 INR 1.5 12/25/17 15:00 APTT 32 SECONDS (21-34) 12/25/17 15:00 - Constitutional Appears: Non-toxic, Chronically Ill - Head Exam Head Exam: NORMOCEPHALIC - Eye Exam Eye Exam: PERRL. absent: Scleral icterus - ENT Exam ENT Exam: Mucous Membranes Dry - Neck Exam Neck Exam: absent: Lymphadenopathy - Respiratory Exam Respiratory Exam: Decreased Breath Sounds - Cardiovascular Exam Cardiovascular Exam: REGULAR RHYTHM - GI/Abdominal Exam GI & Abdominal Exam: Distended, Soft - Rectal Exam Rectal Exam: Deferred - Exam Exam: NORMAL INSPECTION - Extremities Exam Extremities Exam: absent: Pedal Edema - Back Exam Back Exam: absent: CVA tenderness (L), CVA tenderness (R) Assessment and Plan (1) Gross hematuria Status: Acute (2) UTI (lower urinary tract infection) Status: Acute (3) BPH (benign prostatic hyperplasia) Status: Acute - Assessment and Plan (Free Text) Assessment: needs eval cont IV rx min 7 days then PO
--- NOTE | 2017-12-28 16:05 | CP.PCM.PN ---
Subjective - Date & Time of Evaluation Date of Evaluation: 12/28/17 Time of Evaluation: 20:00 - Subjective Subjective: pt seen and examined, pt urine culture growing kleibseiila, on merram Objective - Vital Signs/Intake and Output Vital Signs (last 24 hours): Temp Pulse Resp BP Pulse Ox 98.1 F 73 20 137/77 96 12/28/17 08:17 12/28/17 08:17 12/28/17 08:17 12/28/17 08:17 12/28/17 08:17 Intake and Output: 12/28/17 12/28/17 06:59 18:59 Intake Total 740 160 Output Total 700 500 Balance 40 -340 - Medications Medications: Current Medications Acetaminophen (Tylenol 325mg Tab) 650 mg PO Q4H [facility] Last Admin: 12/28/17 13:47 Dose: 650 mg Aspirin (Ecotrin) 81 mg PO DAILY [facility] Last Admin: 12/28/17 09:42 Dose: 81 mg Enoxaparin Sodium (Lovenox) 40 mg SC DAILY [facility] Last Admin: 12/28/17 09:40 Dose: 40 mg Finasteride (Proscar) 5 mg PO DAILY [facility] Last Admin: 12/28/17 09:41 Dose: 5 mg Hydroxyzine HCl (Atarax) 10 mg PO Q6 [facility] Last Admin: 12/28/17 11:22 Dose: 10 mg Meropenem 500 mg/ Sodium (Chloride) 100 mls @ 100 mls/hr IVPB Q8 [facility] PRN Reason: Protocol Last Admin: 12/28/17 13:47 Dose: 100 mls/hr Losartan Potassium (Cozaar) 25 mg PO DAILY [facility] Last Admin: 12/28/17 09:42 Dose: 25 mg Magnesium Hydroxide (Milk Of Magnesia) 30 ml PO HS PRN PRN Reason: if no BM for 2 days Metoprolol Succinate (Toprol Xl) 12.5 mg PO DAILY [facility] Last Admin: 12/28/17 09:42 Dose: 12.5 mg Mirtazapine (Remeron) 15 mg PO HS [facility] Last Admin: 12/27/17 22:20 Dose: 15 mg Rosuvastatin Calcium (Crestor) 5 mg PO HS [facility] Last Admin: 12/27/17 22:20 Dose: 5 mg Tamsulosin HCl (Flomax) 0.4 mg PO DAILY [facility] Last Admin: 12/28/17 09:41 Dose: 0.4 mg Valproate Sodium (Depakene Cap) 250 mg PO BID [facility] Last Admin: 12/28/17 09:41 Dose: 250 mg Vitamin A (Vitamin A & D Oint Ud Foilpak) 4 ea TOP BID [facility] Last Admin: 12/28/17 09:41 Dose: 4 ea - Labs Labs: 12/27/17 06:22 12/27/17 06:22 PT 16.9 SECONDS (9.7-12.2) H 12/25/17 15:00 INR 1.5 12/25/17 15:00 APTT 32 SECONDS (21-34) 12/25/17 15:00 - Constitutional Appears: No Acute Distress - Head Exam Head Exam: ATRAUMATIC, NORMAL INSPECTION, NORMOCEPHALIC - Eye Exam Eye Exam: EOMI, Normal appearance, PERRL Pupil Exam: NORMAL ACCOMODATION, PERRL - Respiratory Exam Respiratory Exam: Clear to Ausculation Bilateral, NORMAL BREATHING PATTERN - Cardiovascular Exam Cardiovascular Exam: REGULAR RHYTHM, +S1, +S2. absent: Murmur - GI/Abdominal Exam GI & Abdominal Exam: Soft, Normal Bowel Sounds. absent: Tenderness - Rectal Exam Rectal Exam: Deferred - Neurological Exam Neurological Exam: Alert, Awake, CN II-XII Intact, Normal Gait, Oriented x3 - Psychiatric Exam Psychiatric exam: Normal Affect, Normal Mood - Skin Skin Exam: Dry, Intact, Normal Color, Warm Assessment and Plan (1) Gross hematuria Status: Acute (2) UTI (lower urinary tract infection) Status: Acute (3) BPH (benign prostatic hyperplasia) Status: Acute (4) COPD (chronic obstructive pulmonary disease) Status: Acute (5) Cellulitis Status: Acute (6) Cellulitis and abscess of leg Status: Acute
--- NOTE | 2017-12-28 17:38 | CP.PCM.PN ---
Subjective - Date & Time of Evaluation Date of Evaluation: 12/28/17 Time of Evaluation: 17:38 - Subjective Subjective: awake, confused, no acute distress. Objective - Vital Signs/Intake and Output Vital Signs (last 24 hours): Temp Pulse Resp BP Pulse Ox 98.1 F 73 20 137/77 96 12/28/17 08:17 12/28/17 08:17 12/28/17 08:17 12/28/17 08:17 12/28/17 08:17 Intake and Output: 12/28/17 12/28/17 06:59 18:59 Intake Total 740 160 Output Total 700 500 Balance 40 -340 - Medications Medications: Current Medications Acetaminophen (Tylenol 325mg Tab) 650 mg PO Q4H [facility] Last Admin: 12/28/17 13:47 Dose: 650 mg Aspirin (Ecotrin) 81 mg PO DAILY [facility] Last Admin: 12/28/17 09:42 Dose: 81 mg Enoxaparin Sodium (Lovenox) 40 mg SC DAILY [facility] Last Admin: 12/28/17 09:40 Dose: 40 mg Finasteride (Proscar) 5 mg PO DAILY [facility] Last Admin: 12/28/17 09:41 Dose: 5 mg Hydroxyzine HCl (Atarax) 10 mg PO Q6 [facility] Last Admin: 12/28/17 11:22 Dose: 10 mg Meropenem 500 mg/ Sodium (Chloride) 100 mls @ 100 mls/hr IVPB Q8 [facility] PRN Reason: Protocol Last Admin: 12/28/17 13:47 Dose: 100 mls/hr Losartan Potassium (Cozaar) 25 mg PO DAILY [facility] Last Admin: 12/28/17 09:42 Dose: 25 mg Magnesium Hydroxide (Milk Of Magnesia) 30 ml PO HS PRN PRN Reason: if no BM for 2 days Metoprolol Succinate (Toprol Xl) 12.5 mg PO DAILY [facility] Last Admin: 12/28/17 09:42 Dose: 12.5 mg Mirtazapine (Remeron) 15 mg PO HS [facility] Last Admin: 12/27/17 22:20 Dose: 15 mg Rosuvastatin Calcium (Crestor) 5 mg PO HS [facility] Last Admin: 12/27/17 22:20 Dose: 5 mg Tamsulosin HCl (Flomax) 0.4 mg PO DAILY [facility] Last Admin: 12/28/17 09:41 Dose: 0.4 mg Valproate Sodium (Depakene Cap) 250 mg PO BID [facility] Last Admin: 12/28/17 09:41 Dose: 250 mg Vitamin A (Vitamin A & D Oint Ud Foilpak) 4 ea TOP BID [facility] Last Admin: 12/28/17 09:41 Dose: 4 ea - Labs Labs: 12/27/17 06:22 12/27/17 06:22 PT 16.9 SECONDS (9.7-12.2) H 12/25/17 15:00 INR 1.5 12/25/17 15:00 APTT 32 SECONDS (21-34) 12/25/17 15:00 Assessment and Plan - Assessment and Plan (Free Text) Assessment: 72 yr old male admitted from care home with UTI, seen and examined. Confused , no sob or chest pains. Discussed with DR Rowe and DR Hunter, plan to discharge back to [facility] on meropenum x7 days followed by macrobid 100mg pox7 days. Hawk catheter to stay in place.
[2017-12-28 17:55] VITALS: BP 133/74; PULSE 78; TEMP 98
--- NOTE | 2017-12-29 15:53 | CP.PCM.DIS ---
Provider - Provider Date of Admission: 12/25/17 16:59 Attending physician: Liborio Hunter MD Time Spent in preparation of Discharge (in minutes): 45 Diagnosis - Discharge Diagnosis (1) Gross hematuria Status: Acute Comment: Complicated UTI due to indwelling catherer. ESBL positive (2) UTI (lower urinary tract infection) Status: Acute (3) BPH (benign prostatic hyperplasia) Status: Acute (4) COPD (chronic obstructive pulmonary disease) Status: Acute (5) Cellulitis Status: Acute (6) Cellulitis and abscess of leg Status: Acute Hospital Course - Lab Results Lab Results: Micro Results 12/25/17 14:45 Blood-Venous Blood Culture - Preliminary NO GROWTH AFTER 3 DAYS 12/25/17 15:00 Blood-Venous Blood Culture - Preliminary NO GROWTH AFTER 3 DAYS 12/26/17 07:37 Urine,Hawk Urine Culture - Final Gram Positive Cocci 12/25/17 15:30 Urine,Clean Catch Urine Culture - Final Escherichia Coli Most Recent Lab Values WBC 8.6 K/uL (4.8-10.8) 12/27/17 06:22 RBC 4.09 Mil/uL (4.40-5.90) L 12/27/17 06:22 Hgb 11.7 g/dL (12.0-18.0) L 12/27/17 06:22 Hct 35.6 % (35.0-51.0) 12/27/17 06:22 MCV 87.0 fL (80.0-94.0) 12/27/17 06:22 MCH 28.5 pg (27.0-31.0) 12/27/17 06:22 MCHC 32.8 g/dL (33.0-37.0) L 12/27/17 06:22 RDW 14.7 % (11.5-14.5) H 12/27/17 06:22 Plt Count 182 K/uL (130-400) 12/27/17 06:22 MPV 10.3 fL (7.2-11.7) 12/27/17 06:22 Neut % (Auto) 76.3 % (50.0-75.0) H 12/27/17 06:22 Lymph % (Auto) 7.2 % (20.0-40.0) L 12/27/17 06:22 [place] % (Auto) 11.4 % (0.0-10.0) H 12/27/17 06:22 Eos % (Auto) 3.9 % (0.0-4.0) 12/27/17 06:22 Baso % (Auto) 1.2 % (0.0-2.0) 12/27/17 06:22 Neut # (Auto) 6.6 K/uL (1.8-7.0) 12/27/17 06:22 Lymph # (Auto) 0.6 K/uL (1.0-4.3) L 12/27/17 06:22 [place] # (Auto) 1.0 K/uL (0.0-0.8) H 12/27/17 06:22 Eos # (Auto) 0.3 K/uL (0.0-0.7) 12/27/17 06:22 Baso # (Auto) 0.1 K/uL (0.0-0.2) 12/27/17 06:22 Neutrophils % (Manual) 80 % (50-75) H 12/27/17 06:22 Lymphocytes % (Manual) 8 % (20-40) L 12/27/17 06:22 Monocytes % (Manual) 10 % (0-10) 12/27/17 06:22 Eosinophils % (Manual) 5 % (0-4) H 12/27/17 06:22 Platelet Estimate Normal (NORMAL) 12/27/17 06:22 Hypochromasia (manual) Slight 12/27/17 06:22 Poikilocytosis (manual Slight 12/27/17 06:22 Anisocytosis (manual) Slight 12/27/17 06:22 PT 16.9 SECONDS (9.7-12.2) H 12/25/17 15:00 INR 1.5 12/25/17 15:00 APTT 32 SECONDS (21-34) 12/25/17 15:00 pO2 15 mm/Hg (30-55) L 12/25/17 15:11 VBG pH 7.38 (7.32-7.43) 12/25/17 15:11 VBG pCO2 53 mmHg (40-60) 12/25/17 15:11 VBG HCO3 26.6 mmol/L 12/25/17 15:11 VBG Total CO2 33.0 mmol/L (22-28) H 12/25/17 15:11 VBG O2 Sat (Calc) 25.3 % (40-65) L 12/25/17 15:11 VBG Base Excess 4.9 mmol/L (0.0-2.0) H 12/25/17 15:11 VBG Potassium 3.9 mmol/L (3.6-5.2) 12/25/17 15:11 Sodium 140.0 mmol/l (132-148) 12/25/17 15:11 Chloride 105.0 mmol/L (98-107) 12/25/17 15:11 Glucose 80 mg/dl (75-110) 12/25/17 15:11 Lactate 1.1 mmol/L (0.7-2.1) 12/25/17 15:11 Sodium 143 mmol/L (132-148) 12/27/17 06:22 Potassium 3.9 mmol/L (3.6-5.2) 12/27/17 06:22 Chloride 106 mmol/L (98-107) 12/27/17 06:22 Carbon Dioxide 29 mmol/L (22-30) 12/27/17 06:22 Anion Gap 11 (10-20) 12/27/17 06:22 BUN 21 mg/dL (9-20) H 12/27/17 06:22 Creatinine 1.2 mg/dL (0.8-1.5) 12/27/17 06:22 Est GFR ( Amer) > 60 12/27/17 06:22 Est GFR (Non-Af Amer) 60 12/27/17 06:22 Random Glucose 64 mg/dL (75-110) L 12/27/17 06:22 Calcium 8.4 mg/dl (8.6-10.4) L 12/27/17 06:22 Total Bilirubin 0.8 mg/dL (0.2-1.3) 12/27/17 06:22 AST 27 U/L (17-59) 12/27/17 06:22 ALT 23 U/L (21-72) 12/27/17 06:22 Alkaline Phosphatase 48 U/L (38-126) 12/27/17 06:22 Total Creatine Kinase 101 U/L (55-170) 12/25/17 15:00 CK-MB (Mass) 4.72 ng/mL (0.0-3.38) H 12/25/17 15:00 Troponin I 0.0670 ng/mL (0.00-0.120) 12/25/17 15:00 NT-Pro-B Natriuret Pep 1310 pg/mL (0-900) H 12/25/17 15:00 Total Protein 6.3 g/dL (6.3-8.3) 12/27/17 06:22 Albumin 2.7 g/dL (3.5-5.0) L 12/27/17 06:22 Globulin 3.6 gm/dL (2.2-3.9) 12/27/17 06: Albumin/Globulin Ratio 0.8 (1.0-2.1) L 12/27/17 06:22 Venous Blood Potassium 3.9 mmol/L (3.6-5.2) 12/25/17 15:11 Urine Color Yellow (YELLOW) 12/28/17 11:25 Urine Clarity Hazy (Clear) 12/28/17 11:25 Urine pH 5.0 (5.0-8.0) 12/28/17 11:25 Ur Specific [place] 1.019 (1.003-1.030) 12/28/17 11:25 Urine Protein 1+ mg/dL (NEGATIVE) H 12/28/17 11:25 Urine Glucose (UA) Normal mg/dL (Normal) 12/28/17 11:25 Urine Ketones 1+ mg/dL (NEGATIVE) H 12/28/17 11:25 Urine Blood 3+ (NEGATIVE) H 12/28/17 11:25 Urine Nitrate Negative (NEGATIVE) 12/28/17 11:25 Urine Bilirubin Negative (NEGATIVE) 12/28/17 11:25 Urine Urobilinogen Normal mg/dL (0.2-1.0) 12/28/17 11:25 Ur Leukocyte Esterase 3+ [place]/uL (Negative) H 12/28/17 11:25 Urine WBC (Auto) 298 /hpf (0-5) H 12/28/17 11:25 Urine RBC (Auto) 301 /hpf (0-3) H 12/28/17 11:25 Urine WBC Clumps (Auto) Many /hpf (NONE) H 12/25/17 15:30 Ur Squamous Epith Cells 1 /hpf (0-5) 12/28/17 11:25 Urine Bacteria Occ (<OCC) H 12/28/17 11:25 Blood Type A POSITIVE 12/25/17 15:00 Antibody Screen Negative 12/25/17 15:00 - Hospital Course Hospital Course: Pt is for discharge ESBL positive E.Coli in urine pt is feeling better less hort of breath no shortness of breath Discharge Exam - Head Exam Head Exam: ATRAUMATIC, NORMAL INSPECTION, NORMOCEPHALIC - Eye Exam Eye Exam: Normal appearance - ENT Exam ENT Exam: Mucous Membranes Moist - Respiratory Exam Respiratory Exam: Clear to PA & Lateral, NORMAL BREATHING PATTERN - Cardiovascular Exam Cardiovascular Exam: REGULAR RHYTHM, +S1, +S2 - GI/Abdominal Exam GI & Abdominal Exam: Normal Bowel Sounds Discharge Plan - Follow Up Plan Condition: GUARDED Disposition: TRANSF TO SNF Instructions: Blood in the Urine (Hematuria) in Adults, Urinary Tract Infection in Men (DC) Referrals: [facility] [Outside] Liborio Hunter MD [Staff Provider] -
== END 2017-12-28 23:15 | DRG 699 ==
LOC: C.ER 13:54 → C.9E 16:59 → C.3T 12-26 10:29
PROVIDERS: ADMIT Internal Medicine; ATTEND Internal Medicine
DX: T83.518A Infection and inflammatory reaction due to other urinary catheter, initial encounter (principal); N39.0 Urinary tract infection, site not specified; I13.0 Hypertensive heart and chronic kidney disease with heart failure and stage 1 through stage 4 chronic kidney disease, or unspecified chronic kidney disease; L03.119 Cellulitis of unspecified part of limb; E78.00 Pure hypercholesterolemia, unspecified; F20.9 Schizophrenia, unspecified; F31.9 Bipolar disorder, unspecified; I50.9 Heart failure, unspecified; J44.9 Chronic obstructive pulmonary disease, unspecified; N18.9 Chronic kidney disease, unspecified; N40.1 Benign prostatic hyperplasia with lower urinary tract symptoms; R31.0 Gross hematuria; Y84.6 Urinary catheterization as the cause of abnormal reaction of the patient, or of later complication, without mention of misadventure at the time of the procedure

== ENCOUNTER 2018-02-01 08:38 | Day surgery (SDC) | payer MEDICARE, MEDICAID ==
[2018-02-01] MEDS ORDERED: Meropenem 500 MG in Sodium Chloride 0.9% 100 ML IVPB SCH (09:00)
[2018-02-01] MEDS ORDERED: Propofol 10 mg/ml Inj (20 ML) ONE (09:51)
[2018-02-01] MEDS ORDERED: Midazolam 2 MG/2 ML VIAL ONE (09:51)
[2018-02-01] MEDS ORDERED: Lidocaine 2% Jelly (Uro-Jet) ONE (09:52)
[2018-02-01] MEDS ORDERED: Iohexol 240 (50 ml) ONE (09:52)
[2018-02-01 11:41] VITALS: RESP 18; O2SAT 100
[2018-02-01 12:56] VITALS: BP 112/60; PULSE 75; TEMP 98
--- NOTE | 2018-02-01 17:02 | RAD ---
Date of service: 02/01/2018 HISTORY: URETHRAL STRICTURE COMPARISON: No prior. FINDINGS: BOWEL: Normal. No obstruction. No free air. BONES: Normal. OTHER FINDINGS: None. IMPRESSION: No active disease.
--- NOTE | 2018-02-01 21:51 | OP ---
Copied To: Norman Chiang MD Attending MD: Norman Chiang MD PROCEDURE DATE: 02/01/2018 PREOPERATIVE DIAGNOSIS: Urethral stricture disease. POSTOPERATIVE DIAGNOSIS: Urethral stricture disease. PROCEDURE: Cystoscopy. SURGEON: Norman Chiang MD TYPE OF ANESTHESIA: Local anesthesia plus IV sedation with Dr. Goldsmith. DESCRIPTION OF PROCEDURE: The patient was placed on the cystoscopy table in the dorsal lithotomy position, prepped and draped in the usual sterile fashion with Betadine solution under adequate IV sedation. Approximately 10 mL of 2% Xylocaine jelly was injected intraurethrally followed by insertion of a #22-Macanese Storz cystoscope into a phimosed penile meatus which was dilated with curved clamps prior to insertion of the cystoscope. Then under direct vision, the cystoscope was advanced towards the bladder, and it was noted in the mid urethra, there was some irregularity to the urethral mucosa consistent with possible previous stricture disease. Then using a 0.035 sensor wire, Microvasive, 150 cm length, this was advanced into the bladder without any difficulty, and the cystoscope followed this wire directly into the bladder without any difficulty. The bladder neck area and the prostatic fossa area were completely opened at this time. The bladder was able to be examined in all four quadrants. There were no foreign bodies or suspicious lesions seen in the bladder. No evidence of bladder malignancy. Both ureteral orifices were in normal location, normal configuration on the trigone with clear efflux bilaterally. The bladder appeared to be at least 2 to 3+ trabeculated. The prostatic fossa measured about 4 cm in length and the bladder neck to veru measured about 3 cm in length. There was moderate occlusive lateral lobe prostatic hypertrophy with the beginning of a trilobe prostatic hypertrophy. At the end of the procedure, the cystoscope was removed under direct vision. The whole prostatic area now looked completely normal. The mid urethra showed evidence of probable previous stricture disease and the remaining proximal urethra appeared to be relatively normal. The cystoscope was removed. The patient tolerated the procedure well without any blood loss and will be discharged today without a Hawk catheter. The patient received meropenem IV 500 mg prior to start of the procedure. The patient will be seen in my office for followup in about one month. Norman Chiang MD [facility] # [id number] TANIA
== END 2018-02-01 12:45 | disposition home or self-care (01) ==
LOC: C.SDS 08:38
PROVIDERS: ATTEND Urology
DX: N35.9 Urethral stricture, unspecified (principal); N39.41 Urge incontinence; R33.9 Retention of urine, unspecified
CPT/HCPCS: 52000; 74018; C1769; J2185

== ENCOUNTER 2018-03-14 08:35 | Inpatient (IN) | payer MEDICARE, MEDICAID ==
[2018-03-14 09:01] VITALS: BMI 22.3
--- NOTE | 2018-03-14 09:04 | C.PDOC ---
History Of Present Illness 73 y/o male, w/PMhx of pneumonia, CHF, AR, and sepsis, brought in by ambulance from [facility] for evaluation of altered mental status and oxygen desaturation. As per EMS ,the nurses at the retirement state that he was not behaving his normal self. Last seen normal last night by Corwin RN. He was recently diagnosed with UTI and treated with Augmentin. Pt is full code. Of note , HPI is limited because of patient's clinical condition. Time Seen by Provider: 03/14/18 08:52 Chief Complaint (Nursing): Altered Mental Status History Per: EMS History/Exam Limitations: Clinical Condition Onset/Duration Of Symptoms: Hrs Current Symptoms Are (Timing): Still Present Past Medical History Reviewed: Historical Data, Nursing Documentation, Vital Signs Vital Signs: Last Vital Signs Temp 98.4 F 03/14/18 10:16 Pulse 99 H 03/14/18 10:16 Resp 18 03/14/18 10:16 BP 106/52 L 03/14/18 10:16 Pulse Ox 100 03/14/18 10:16 - Medical History PMH: Anxiety, Asthma, Benign Prostatic Hyperplasia (bladder problem), Bipolar Disorder, CHF, COPD, Depression, HTN, Hypercholesterolemia, Hyperlipidemia, Pneumonia, Chronic Kidney Disease (renal insufficiency), Schizophrenia Denies: Diabetes, Hepatitis Surgical History: Tonsillectomy - [facility] Procedures EXCIS DEBRIDE OF WOUND, INFECT, OR BURN (08/17/14) GROUP PSYCHOTHERAPY (02/28/18) INDIVIDUAL PSYCHOTHERAPY, SUPPORTIVE (02/28/18) OCCUPATIONAL THERAPY (08/28/14) PHYSICAL THERAPY NEC (08/28/14) Family History: States: No Known Family Hx - Social History Hx Tobacco Use: No Hx Alcohol Use: No Hx Substance Use: No - Immunization History Hx Tetanus Toxoid Vaccination: No Hx Influenza Vaccination: No (patient refused) Hx Pneumococcal Vaccination: No Review Of Systems Review Of Systems: ROS cannot be obtained secondary to pt's inabilty to answer questions. Physical Exam - Physical Exam Appears: Other (sickly appearing, cachectic, posturing) Skin: Normal Color, Warm, Dry Head: Atraumatic, Normacephalic Eye(s): right: Abnormal Pupil (2mm L, 1mm right, reactive) Nose: Normal Oral Mucosa: Moist Throat: Other (good gag reflex ) Neck: Supple Chest: Symmetrical Cardiovascular: Rhythm Regular Respiratory: Normal Breath Sounds, No Rales, No Rhonchi, No Wheezing Gastrointestinal/Abdominal: No Bowel Sounds, Soft, No Tenderness, No Guarding, No Rebound Rectal: Other (patient in diaper, no rash) Back: Normal Inspection Neurological/Psych: No Oriented x3, No Normal Speech, No Normal Cognition, Other (non responsive) Pain Response: Withdraws With Pain ED Course And Treatment - Laboratory Results Result Diagrams: 03/14/18 09:30 03/14/18 09:30 ECG: Interpreted By Me, Viewed By Me ECG Rhythm: Sinus Rhythm, PVC Interpretation Of ECG: NSR with PVC, no STEMI - CT Scan/US CT-Head Other Rad Studies (CT/US): Read By Radiologist, Radiology Report Reviewed CT/US Interpretation: Date of service: 03/14/2018. PROCEDURE: CT HEAD WITHOUT CONTRAST. HISTORY: ams. COMPARISON: Comparison made with CT scan brain 12/13/2017. TECHNIQUE: Axial computed tomography images were obtained through the head/brain without intravenous contrast. Radiation dose: Total exam DLP = 1421.62 mGy-cm. This CT exam was performed using one or more of the following dose reduction techniques: Automated exposure control, adjustment of the mA and/or kV according to patient size, and/or use of iterative reconstruction technique. FINDINGS: Note that this examination is quite limited due to motion artifact. HEMORRHAGE: No acute parenchymal, subarachnoid or extra-axial hemorrhage. BRAIN: There is a large wedge-shaped area of low attenuation involving the left frontal left lateral basal ganglia/ subinsular region extending superiorly into the left frontoparietal lobes consistent with large acute left MCA territory infarct. Consider follow-up MRI of the brain for further evaluation. . There is loss of the corticomedullary distinction and overlying sulcal effacement. There is mild mass effect on the left lateral ventricle. Moderate chronic periventricular white matter ischemic changes are also present. No large parenchymal nor extra-axial masses or collections. Moderate generalized volume loss. VENTRICLES: No obstructive hydrocephalus. CALVARIUM: Calvarium is intact so far as can be determined through motion artifact. PARANASAL SINUSES: There are focal areas of polypoid like mucous retention cyst formation both maxillary antra the largest on the right. MASTOID AIR CELLS: Unremarkable as visualized. No inflammatory changes. OTHER FINDINGS: None. IMPRESSION: Large acute left MCA territory infarct as detailed above. No hemorrhage. Note that these findings were discussed with Dr. Cramer at approximately 10:45 a.m. with written down and read back verification. Moderate chronic periventricular white matter ischemic changes. Moderate generalized volume loss NIHSS Stroke Scale - Date/Time Evaluation Performed Date Performed: 03/14/18 Time Performed: 11:00 - How Severe is the Stoke Level of Consciousness: 2=Obtunded LOC to Questions: 2=Neither correct LOC to commands: 2=Neither correct Visual: 3=Bilateral Facial: 0=Normal Motor Arm - Left: 3=No effort against gravity (falls immediately) Motor Arm - Right: 3=No effort against gravity (falls immediately) Motor Leg - Left: 3=No effort against gravity (falls immediately) Motor Leg - Right: 3=No effort against gravity (falls immediately) Limb Ataxia: 0=Absent Sensory: 0=Normal Best Language: 3=Mute Dysarthia: 2=Severe, near unintelligible or worse Extinction & Inattention (Neglect): 2=Profound neglect(does not recognize own hand or orients to one side) Severity Of Stroke: 21-42= Severe Stroke Medical Decision Making Medical Decision Makin yr old male w/ hx of PNA, dementia, CHF, p/w hypoxia, AMS, SIRS vitals. Per documentation, pt recently treated for UTI at [place], likely sepsis w/ ams. Tachy, AMS, Elevated RR rate. of note- Pt is full code Plan: --Labs --CXR --CT- Head --IV Fluids Updates: Patient's family, POA, was contacted. There was no response. According to retirement, Patient's last known well time was last night. Given pts immideate respiratory compromise- GCS<8, and desat to 90% w/ irregular breathing pattern- pt will be intubated and will go to CT stat. Likely severe sepsis given AMS, recent ABX for UTI. Out of time frame for TPA given last seen well last night. 9:00 AM Pt intubated, XR confirmation- good o2 sat post procedure. plan for CT w/ abx and fluids hanging. 9:30 AM Appreciate consult w/ Dr. Almazan (ICU)- to see patient 11:00 AM troponin elevated on labs. Code Stroke called given CT- Head Findings of L MCA infarct. Dr. Aldridge, neurologist, came to evaluate patient. Valproic acid, ativan, mannitol, keppra ordered per neuro. Appreciate consult w/ Dr. Liao for elevated troponin: cardiology: ASA and he will follow 11:45 AM Case discussed with Dr. Hunter. Patient will be admitted under the service of Dr. Hunter. Disposition - Disposition Disposition: HOSPITALIZED Disposition Time: 13:10 Condition: SERIOUS - Clinical Impression Clinical Impression: Sepsis, Hypoxia, Stroke, Troponin level elevated - Scribe Statement The provider has reviewed the documentation as recorded by the Jenelleibe Rose Marie Knutson Provider Attestation: All medical record entries made by the Scribe were at my direction and personally dictated by me. I have reviewed the chart and agree that the record accurately reflects my personal performance of the history, physical exam, medical decision making, and the department course for this patient. I have also personally directed, reviewed, and agree with the discharge instructions and disposition. Procedure: Intubation - Time Performed Time Performed: 09:00 - Time Out Time Out: Patient ID confirmed - Consent Obtained Consent obtained: Emergent consent implied - Performed By Performed by: Attending Physician - Indications Indication(s):: Respiratory failure, Hypoxia - Method Method:: Oral-Laryngoscopy - Rapid Sequence Intubation Anesthetic:: Etomidate Paralytic:: Succinylcholine - Tube type Tube type:: Endotracheal tube Tube size:: Cuffed Number of attempts:: 1 Depth measured at lip: cm: 24 - Confirmation Confirmation: Direct visual.of intubate, End-tidal CO2 positive, Bilat. breath sounds - Post-intubation CXR Post-intubation CXR: Tube in good position - Post-intubation O2 sat % Post-intubation O2 sat%:: 100 - Ventilator Settings Ventilator Settings:: Mode (AC), Rate (15), TV (500), Peep (5), FIO2 (100) - ABG Ordered ABG ordered:: Yes - Endotrachael tube suction perf. Endotracheal tube suction performed:: No - Sputum sent for culture & sensitivity Sputum sent for culture and sensitivity:: No - Gastric Decompression Gastric Decompression:: None - Patient Tolerated Procedure Patient Tolerated Procedure:: Well
--- NOTE | 2018-03-14 09:05 | C.PDOC ---
Time Seen by Provider: 03/14/18 08:52 Chief Complaint (Nursing): Altered Mental Status Past Medical History - Medical History PMH: Anxiety, Asthma, Benign Prostatic Hyperplasia (bladder problem), Bipolar Disorder, CHF, COPD, Depression, HTN, Hypercholesterolemia, Hyperlipidemia, Pneumonia, Chronic Kidney Disease (renal insufficiency), Schizophrenia Denies: Diabetes, Hepatitis Surgical History: Tonsillectomy - [facility] Procedures EXCIS DEBRIDE OF WOUND, INFECT, OR BURN (08/17/14) GROUP PSYCHOTHERAPY (02/28/18) INDIVIDUAL PSYCHOTHERAPY, SUPPORTIVE (02/28/18) OCCUPATIONAL THERAPY (08/28/14) PHYSICAL THERAPY NEC (08/28/14) Family History: States: Unknown Family Hx - Social History Hx Tobacco Use: No Hx Alcohol Use: No Hx Substance Use: No - Immunization History Hx Tetanus Toxoid Vaccination: No Hx Influenza Vaccination: No (patient refused) Hx Pneumococcal Vaccination: No Disposition - Disposition
[2018-03-14] MEDS ORDERED: Sodium Chloride 0.9% 1,000 ML IV ONE ×2 (09:28→13:05)
[2018-03-14] MEDS ORDERED: Etomidate 20 mg/10ml Inj IV ONE (09:30)
[2018-03-14] MEDS ORDERED: Succinylcholine Chloride 20 mg/ml Syr (5 ml) IV ONE (09:30)
[2018-03-14 09:35] LABS: BASO % 0.3 % (0.0-2.0); EOS % 0.1 % (0.0-4.0); HEMOGLOBIN 10.5 g/dL (12.0-18.0); LYMPH # 0.7 K/uL (1.0-4.3); LYMPH % 6.5 % (20.0-40.0); MEAN CORPUSCULAR HEMOGLOBIN 28.1 pg (27.0-31.0); MEAN CORPUSCULAR HGB CONC 33.7 g/dL (33.0-37.0); MEAN PLATELET VOLUME 10.4 fL (7.2-11.7); MONO # 0.8 K/uL (0.0-0.8); MONO % 7.5 % (0.0-10.0); NEUT # 8.7 K/uL (1.8-7.0); NEUT % 85.6 % (50.0-75.0); PLATELET COUNT 168 K/uL (130-400); RBC 3.74 Mil/uL (4.40-5.90); RED CELL DISTRIBUTION WIDTH 15.8 % (11.5-14.5); WHITE BLOOD COUNT 10.2 K/uL (4.8-10.8)
[2018-03-14 09:39] LABS: MEAN CELL VOLUME 83.5 fL (80.0-94.0)
[2018-03-14 09:43] LABS: SQUAMOUS EPITHIAL 22 /hpf (0-5); URINE BACTERIA FEW (<OCC); URINE BILIRUBIN NEGATIVE (NEGATIVE); URINE BLOOD 3+ (NEGATIVE); URINE CLARITY Hazy (Clear); URINE COLOR Yellow (YELLOW); URINE GLUCOSE (UA) NORMAL (Normal); URINE LEUKOCYTE ESTERASE 3+ Leu/uL (Negative); URINE PROTEIN 1+ mg/dL (NEGATIVE); URINE UROBILINOGEN NORMAL mg/dL (0.2-1.0)
[2018-03-14] MEDS ORDERED: Vancomycin 1 gm/NS 200 ml 1 GM/200 ML BAG IVPB ONE (09:45)
[2018-03-14] MEDS ORDERED: Vancomycin 1 GM 1 GM/250 ML BAG IVPB ONE (09:47)
[2018-03-14] MEDS ORDERED: Piperacillin/Tazobact 3.375 gm 100 ML IVPB ONE (09:47)
[2018-03-14 09:49] LABS: INR 1.6; PROTHROMBIN TIME 17.4 SECONDS (9.7-12.2)
[2018-03-14 09:51] LABS: ALB/GLOB RATIO 0.8 (1.0-2.1); ALBUMIN 2.9 g/dL (3.5-5.0); ALT/SGPT 17 U/L (21-72); AST/SGOT 28 U/L (17-59); BLOOD UREA NITROGEN 21 mg/dL (9-20); CALCIUM 8.7 mg/dl (8.6-10.4); GFR NON-AFRICAN AMERICAN > 60
[2018-03-14 09:57] LABS: ARTERIAL BLOOD GAS HCO3 22.5 mmol/L (21-28); ARTERIAL BLOOD GAS O2 SAT 100.3 % (95-98); ARTERIAL BLOOD GAS PCO2 43 mm/Hg (35-45); ARTERIAL BLOOD GAS PH 7.33 (7.35-7.45); ARTERIAL BLOOD GAS PO2 256 mm/Hg (80-100)
[2018-03-14 10:06] LABS: BANDS 1 % (0-2); LYMPHOCYTE 5 % (20-40); MONOCYTE 8 % (0-10); NEUTROPHIL 86 % (50-75); PLATELET ESTIMATE NORMAL (NORMAL); TOTAL CELLS COUNTED 100
[2018-03-14 10:07] LABS: ANISOCYTOSIS SLIGHT; HYPOCHROMIC SLIGHT; OVALOCYTES SLIGHT
[2018-03-14] MEDS ORDERED: Sodium Chloride 0.9% 1,000 ML IV SCH (10:15)
[2018-03-14 10:26] LABS: B-TYPE NATRIURETIC PEPTIDE 7420 pg/mL (0-900)
--- NOTE | 2018-03-14 10:49 | RAD ---
HISTORY: Sepsis Patient COMPARISON: Chest x-ray performed TECHNIQUE: Chest, one view. FINDINGS: Endotracheal tube terminates approximately 3.6 cm above the aline. LUNGS: Patchy bilateral air space opacities, demonstrate continued decreased in extent. New patchy opacity at the left lung base. Please note that chest x-ray has limited sensitivity for the detection of pulmonary masses. PLEURA: Tiny left pleural effusion. No definite pneumothorax . CARDIOVASCULAR: Heart size appears within normal limits. OSSEOUS STRUCTURES: Degenerative changes of the spine. VISUALIZED UPPER ABDOMEN: Unremarkable. OTHER FINDINGS: None. IMPRESSION: Endotracheal tube terminates approximately 3.6 cm above the aline. Patchy bilateral air space opacities, demonstrate continued decreased in extent. New patchy opacity at the left lung base. Tiny left pleural effusion.
--- NOTE | 2018-03-14 10:53 | CT ---
Date of service: 03/14/2018 PROCEDURE: CT HEAD WITHOUT CONTRAST. HISTORY: ams COMPARISON: Comparison made with CT scan brain 12/13/2017 TECHNIQUE: Axial computed tomography images were obtained through the head/brain without intravenous contrast. Radiation dose: Total exam DLP = 1421.62 mGy-cm. This CT exam was performed using one or more of the following dose reduction techniques: Automated exposure control, adjustment of the mA and/or kV according to patient size, and/or use of iterative reconstruction technique. FINDINGS: Note that this examination is quite limited due to motion artifact HEMORRHAGE: No acute parenchymal, subarachnoid or extra-axial hemorrhage. BRAIN: There is a large wedge-shaped area of low attenuation involving the left frontal left lateral basal ganglia/ subinsular region extending superiorly into the left frontoparietal lobes consistent with large acute left MCA territory infarct. Consider follow-up MRI of the brain for further evaluation. . There is loss of the corticomedullary distinction and overlying sulcal effacement. There is mild mass effect on the left lateral ventricle. Moderate chronic periventricular white matter ischemic changes are also present. No large parenchymal nor extra-axial masses or collections Moderate generalized volume loss. VENTRICLES: No obstructive hydrocephalus. CALVARIUM: Calvarium is intact so far as can be determined through motion artifact. PARANASAL SINUSES: There are focal areas of polypoid like mucous retention cyst formation both maxillary antra the largest on the right. MASTOID AIR CELLS: Unremarkable as visualized. No inflammatory changes. OTHER FINDINGS: None. IMPRESSION: Large acute left MCA territory infarct as detailed above. No hemorrhage. Note that these findings were discussed with Dr. Cramer at approximately 10:45 a.m. with written down and read back verification. Moderate chronic periventricular white matter ischemic changes. Moderate generalized volume loss
[2018-03-14] MEDS ORDERED: Valproate 1,000 MG in Sodium Chloride 0.9% 100 ML IVPB ONE (11:01)
[2018-03-14] MEDS ORDERED: Mannitol 12.5 gm/50 ml Inj IV ONE (11:02)
[2018-03-14] MEDS ORDERED: Iodixanol 320 mg/ml 150 ml Bottle IV ONE (11:20)
--- NOTE | 2018-03-14 12:58 | CT ---
Date of service: 03/14/2018. PROCEDURE: CT Angiography of the neck and brain with contrast HISTORY: Left MCA stroke. COMPARISON: Comparison made with prior CT scan brain earlier same day TECHNIQUE: Contiguous helical/transaxial images of the neck and brain were obtained from the level of the vertex of the skull to the superior mediastinum in the arteriographic phase of enhancement. Coronal and sagittal reformats or also generated. IV contrast dose: 100 cc Visipaque 320 Radiation Dose - DLP: 466.81 mGy-cm This CT exam was performed using one or more of the following dose reduction techniques: Automated exposure control, adjustment of the mA and/or kV according to patient size, and/or use of iterative reconstruction technique. . FINDINGS: The aortic arch is widely patent as are the origins of the great vessels. The common carotid arteries are patent though there are partially calcified atherosclerotic plaque changes seen along the posterior aspect distal left common carotid artery extending into the bifurcation. Estimated percent diameter stenosis = 35%. . There is occlusion of the right proximal/mid internal carotid artery which extends into the petrous cavernous and supraclinoid segments. The distal left internal carotid artery including the petrous cavernous and supraclinoid segments are patent. . The major branches of the [place] of [place] are patent with filling of the right A1 from the left A1 segment via the left anterior communicating artery. There is a paucity of distal branches of the left middle cerebral artery (M3 segment) within the sylvian fissure consistent with patient's acute infarct. The vertebral arteries are patent left-sided which is slightly larger in caliber/more dominant than the right. . There is also narrowing of the right vertebral artery due to significant hypertrophic facet joint changes most notably at the C5-C6 level which of these exacerbated by a anterior subluxation of C5 over C6. Narrowing extends superiorly to the C4-C5 level and commences again at the C4 level also due to significant facet arthropathy. . The proximal posterior cerebral artery including the P1 P2 and P3 segments are patent. Distal posterior cerebral arteries are also patent so far as can be seen though tapers distally and are not well delineated due to tortuosity. Both posterior cerebral arteries No evidence of large aneurysm nor vascular malformation Impression: OTHER FINDINGS: In situ endotracheal tube is present. 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 . Right-sided cerebral circulation fed by the left A1 segment via the anterior communicating artery communicating artery from the left side. There is also a paucity of distal branch vessels in the left sylvian fissure consistent with a branch infarct changes involving the distal left MCA territory. Mild atherosclerotic narrowing estimated approximately 35 percent at the proximal left internal carotid artery due to atherosclerotic plaque. Significant narrowing of the right vertebral artery at several levels due to significant - severe hypertrophic facet arthropathy.
--- NOTE | 2018-03-14 13:06 | CP.PCM.CON ---
<Acosta Ray - Last Filed: 03/14/18 16:52> History of Present Illness - History of Present Illness History of Present Illness: ICU consult note HPI: Patient is a 73 year old male with history of HTN, HLD, BPH, schizophrenia , CKD, CHF, dementia who was sent in for [facility] after he was found altered with poor O2 saturation. Patient unable to provide history. Patient was reportedly last behaving normally as per [facility] staff last night. Patient is full code. PMH: CHF, HTN, HLD, paranoid schizophrenia, CKD, BPH, recurrent UTIs, dementia PSH: tonsillectomy Family hx: mother of cardiac issues, father - emphysema Social: No alcohol, tobacco or drug use Home meds: ASA 81mg Proscar 5mg daily, Flomax 0.4mg daily, Remeron 30mg HS, Megace 400mg, Depakote 250mg Am, Depakote 500mg PM, Vit D supplement, Metoprolol 12.5mg PO, Lasix 20mg daily Allergies: NKDA Review of Systems - Review of Systems Systems not reviewed;Unavailable: Altered Mental Status Past Patient History - Infectious Disease Hx of Infectious Diseases: None - Tetanus Immunizations Tetanus Immunization: Unknown - Past Medical History & Family History Past Medical History?: Yes - Past Social History Smoking Status: Never Smoked - CARDIAC Hx Congestive Heart Failure: Yes Hx Hypercholesterolemia: Yes Hx Hypertension: Yes - PULMONARY Hx Asthma: Yes Hx Chronic Obstructive Pulmonary Disease (COPD): Yes Hx Pneumonia: Yes - HEENT Hx HEENT Problems: Yes Hx Cataracts: Yes Other/Comment: hard of hearing - RENAL Hx Chronic Kidney Disease: Yes (renal insufficiency) - PSYCHIATRIC Hx Anxiety: Yes Hx Bipolar Disorder: Yes Hx Depression: Yes Hx Schizophrenia: Yes Hx Substance Use: No - SURGICAL HISTORY Hx Tonsillectomy: Yes - ANESTHESIA Hx Anesthesia: Yes Hx Anesthesia Reactions: No Hx Malignant Hyperthermia: No Meds Allergies/Adverse Reactions: Allergies Allergy/AdvReac Type Severity Reaction Status Date / Time No Known Allergies Allergy Verified 03/14/18 09:01 - Medications Medications: Current Medications Piperacillin Sod/Tazobactam (Sod 3.375 gm/ Sodium Chloride) 100 mls @ 200 mls/ hr IVPB ONCE ONE PRN Reason: Protocol Stop: 03/14/18 21:33 Last Admin: 03/14/18 10:07 Dose: 200 mls/hr Fentanyl Citrate 2,500 mcg/ (Sodium Chloride) 250 mls @ 36.28 mls/hr IV .[id number] PRN; Protocol; 5 MCG/KG/HR PRN Reason: PER PROTOCAL Sodium Chloride (Sodium Chloride 0.9%) 1,000 mls @ 500 mls/hr IV .Q2H [facility] Last Admin: 03/14/18 10:59 Dose: 500 mls/hr Levetiracetam 1,000 mg/ (Dextrose) 110 mls @ 420 mls/hr IVPB Q12H [facility] Last Admin: 03/14/18 11:15 Dose: 420 mls/hr Sodium Chloride (Sodium Chloride 0.9%) 1,000 mls @ 1,000 mls/hr IV .Q1H ONE Stop: 03/14/18 14:04 Physical Exam - Constitutional Appears: Chronically Ill - Head Exam Head Exam: ATRAUMATIC, NORMOCEPHALIC - Eye Exam Additional comments: Pupils not equally reactive bilaterally. right noted to 1mm, left 2mm reactive - ENT Exam ENT Exam: Mucous Membranes Dry - Respiratory Exam Respiratory Exam: Decreased Breath Sounds Additional comments: Intubated, ETT in place Prior to intubation, patient was noted to be in respiratory distress with accessory muscle use. - Cardiovascular Exam Cardiovascular Exam: REGULAR RHYTHM, +S1, +S2 - GI/Abdominal Exam GI & Abdominal Exam: Normal Bowel Sounds, Soft. absent: Distended, Tenderness - Extremities Exam Extremities exam: Positive for: pedal pulses present. Negative for: calf tenderness, pedal edema, tenderness - Skin Additional comments: Tenting noted Results - Vital Signs Recent Vital Signs: Last Vital Signs Temp 98.4 F 03/14/18 10:16 Pulse 99 H 03/14/18 10:16 Resp 18 03/14/18 10:16 BP 106/52 L 03/14/18 10:16 Pulse Ox 100 03/14/18 10:16 - Labs Result Diagrams: 03/14/18 09:30 03/14/18 09:30 Labs: Laboratory Results - last 24 hr 03/14/18 03/14/18 03/14/18 08:41 09:30 09:30 WBC 10.2 RBC 3.74 L Hgb 10.5 L Hct 31.2 L MCV 83.5 D MCH 28.1 MCHC 33.7 RDW 15.8 H Plt Count 168 MPV 10.4 Neut % (Auto) 85.6 H Lymph % (Auto) 6.5 L [place] % (Auto) 7.5 Eos % (Auto) 0.1 Baso % (Auto) 0.3 Neut # (Auto) 8.7 H Lymph # (Auto) 0.7 L [place] # (Auto) 0.8 Eos # (Auto) 0.0 Baso # (Auto) 0.0 Neutrophils % (Manual) 86 H Band Neutrophils % 1 Lymphocytes % (Manual) 5 L Monocytes % (Manual) 8 Platelet Estimate Normal Hypochromasia (manual) Slight Anisocytosis (manual) Slight Ovalocytes Slight PT 17.4 H INR 1.6 APTT 31 Puncture Site pCO2 pO2 HCO3 ABG pH ABG Total CO2 ABG O2 Saturation ABG Base Excess Joseph Test ABG Potassium A-a O2 Difference Respiratory Index Glucose Lactate Vent Mode Mechanical Rate FiO2 Tidal Volume PEEP Sodium Potassium Chloride Carbon Dioxide Anion Gap BUN Creatinine Est GFR ( Amer) Est GFR (Non-Af Amer) POC Glucose (mg/dL) 100 Random Glucose Calcium Phosphorus Magnesium Total Bilirubin AST ALT Alkaline Phosphatase Troponin I NT-Pro-B Natriuret Pep Total Protein Albumin Globulin Albumin/Globulin Ratio Arterial Blood Potassium Urine Color Urine Clarity Urine pH Ur Specific [place] Urine Protein Urine Glucose (UA) Urine Ketones Urine Blood Urine Nitrate Urine Bilirubin Urine Urobilinogen Ur Leukocyte Esterase Urine WBC (Auto) Urine RBC (Auto) Ur Squamous Epith Cells Urine Bacteria 03/14/18 03/14/18 03/14/18 09:30 09:33 09:53 WBC RBC Hgb Hct MCV MCH MCHC RDW Plt Count MPV Neut % (Auto) Lymph % (Auto) [place] % (Auto) Eos % (Auto) Baso % (Auto) Neut # (Auto) Lymph # (Auto) [place] # (Auto) Eos # (Auto) Baso # (Auto) Neutrophils % (Manual) Band Neutrophils % Lymphocytes % (Manual) Monocytes % (Manual) Platelet Estimate Hypochromasia (manual) Anisocytosis (manual) Ovalocytes PT INR APTT Puncture Site Rf pCO2 43 pO2 256 H HCO3 22.5 ABG pH 7.33 L ABG Total CO2 24.0 ABG O2 Saturation 100.3 H ABG Base Excess -3.2 L Joseph Test Na ABG Potassium 3.4 L A-a O2 Difference 403.0 Respiratory Index 1.6 Glucose 99 Lactate 1.9 Vent Mode Prvc Mechanical Rate 14 FiO2 100.0 Tidal Volume 500 PEEP 5 Sodium 142 141.0 Potassium 3.6 Chloride 106 112.0 H Carbon Dioxide 26 Anion Gap 14 BUN 21 H Creatinine 1.0 Est GFR ( Amer) > 60 Est GFR (Non-Af Amer) > 60 POC Glucose (mg/dL) Random Glucose 106 Calcium 8.7 Phosphorus 2.5 Magnesium 1.7 Total Bilirubin 0.7 AST 28 ALT 17 L D Alkaline Phosphatase 51 Troponin I 1.3100 H* NT-Pro-B Natriuret Pep 7420 H Total Protein 6.3 Albumin 2.9 L Globulin 3.4 Albumin/Globulin Ratio 0.8 L Arterial Blood Potassium 3.4 L Urine Color Yellow Urine Clarity Hazy Urine pH 5.0 Ur Specific [place] 1.015 Urine Protein 1+ H Urine Glucose (UA) Normal Urine Ketones Trace Urine Blood 3+ H Urine Nitrate Negative Urine Bilirubin Negative Urine Urobilinogen Normal Ur Leukocyte Esterase 3+ H Urine WBC (Auto) 291 H Urine RBC (Auto) 275 H Ur Squamous Epith Cells 22 H Urine Bacteria Few H Assessment & Plan - Assessment and Plan (Free Text) Assessment: 73 year old male with history of HTN, HLD, BPH, schizophrenia, CKD, CHF, dementia who was sent in for [facility] after he was found altered with poor O2 saturation. CT brain found to have large left MCA infarct. Troponins elevated. Plan: Neuro: Altered mental status CT brain Large acute left MCA territory infarct as detailed above. No hemorrhage. Note that these findings were discussed with Dr. Cramer at approximately 10:45 a.m. with written down and read back verification. Moderate chronic periventricular white matter ischemic changes. 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 Dr. Aldridge consulted, help appreciated Keppra 1000mg IV Sedated, on Fentanyl Cardiovascular: Troponins 1.[address] Ramirez consulted, help appreciated Crestor 10mg PO HS ASA 81mg PO Beta luciana not given since patient is slightly hypotensive f/u ECHO Unable to reach family for consent for central line, will try again later Pulmonary: Intubated prior to ICU On Fentanyl CXR Endotracheal tube terminates approximately 3.6 cm above the aline.Patchy bilateral air space opacities, demonstrate continued decreased in extent. New patchy opacity at the left lung base. Tiny left pleural effusion. GI: Protonix 40mg IVP Renal BUN/Cr 21/1.0 NS IV fluids @ 125cc/hr IV Flomax 0.4mg PO Continue to monitor electrolyte, replete as needed Endo Maintain euglycemia ID UA: 3+ leuk esterase, WBC 291 Vancomycin 1g q12, Zosyn IV ID Dr. England consulted, help appreciated f/u cultures Heme H/H 10.5/31.2 PPX: Protonix Case discussed with Dr. Perez <Lazaro Perez S - Last Filed: 03/14/18 18:40> Meds - Medications Medications: Current Medications Aspirin (Aspirin Chewable) 81 mg PO DAILY [facility] Levetiracetam 1,000 mg/ (Dextrose) 110 mls @ 420 mls/hr IVPB Q12H [facility] Last Admin: 03/14/18 11:15 Dose: 420 mls/hr Vancomycin/Sodium Chloride (Vancomycin 1 Gm/Ns 200 Ml) 1 gm in 200 mls @ 133.333 mls/hr IVPB Q12H [facility] PRN Reason: Protocol Stop: 03/19/18 16:01 Last Admin: 03/14/18 15:45 Dose: 133.333 mls/hr Fentanyl Citrate 2,500 mcg/ (Sodium Chloride) 250 mls @ 12.97 mls/hr IV .[id number] [facility]; 2 MCG/KG/HR PRN Reason: Protocol Last Admin: 03/14/18 12:10 Dose: 1 mcg/kg/hr, 6.48 mls/hr Sodium Chloride (Sodium Chloride 0.9%) 1,000 mls @ 125 mls/hr IV .Q8H [facility] Last Admin: 03/14/18 15:45 Dose: 125 mls/hr Meropenem 1 gm/ Sodium (Chloride) 100 mls @ 100 mls/hr IVPB Q8H [facility] PRN Reason: Protocol Pantoprazole Sodium (Protonix Inj) 40 mg IVP DAILY [facility] Rosuvastatin Calcium (Crestor) 10 mg PO HS [facility] Tamsulosin HCl (Flomax) 0.4 mg PO DAILY [facility] Results - Vital Signs Recent Vital Signs: Last Vital Signs Temp 98.1 F 03/14/18 12:30 Pulse 87 03/14/18 18:00 Resp 13 03/14/18 18:00 BP 86/53 L 03/14/18 17:50 Pulse Ox 100 03/14/18 18:00 - Labs Result Diagrams: 03/14/18 09:30 03/14/18 09:30 Labs: Laboratory Results - last 24 hr 03/14/18 03/14/18 03/14/18 08:41 09:30 09:30 WBC 10.2 RBC 3.74 L Hgb 10.5 L Hct 31.2 L MCV 83.5 D MCH 28.1 MCHC 33.7 RDW 15.8 H Plt Count 168 MPV 10.4 Neut % (Auto) 85.6 H Lymph % (Auto) 6.5 L [place] % (Auto) 7.5 Eos % (Auto) 0.1 Baso % (Auto) 0.3 Neut # (Auto) 8.7 H Lymph # (Auto) 0.7 L [place] # (Auto) 0.8 Eos # (Auto) 0.0 Baso # (Auto) 0.0 Neutrophils % (Manual) 86 H Band Neutrophils % 1 Lymphocytes % (Manual) 5 L Monocytes % (Manual) 8 Platelet Estimate Normal Hypochromasia (manual) Slight Anisocytosis (manual) Slight Ovalocytes Slight PT 17.4 H INR 1.6 APTT 31 Puncture Site pCO2 pO2 HCO3 ABG pH ABG Total CO2 ABG O2 Saturation ABG Base Excess Joseph Test ABG Potassium VBG pH VBG pCO2 VBG HCO3 VBG Total CO2 VBG O2 Sat (Calc) VBG Base Excess VBG Potassium A-a O2 Difference Respiratory Index Glucose Lactate Vent Mode Mechanical Rate FiO2 Tidal Volume PEEP Sodium Potassium Chloride Carbon Dioxide Anion Gap BUN Creatinine Est GFR ( Amer) Est GFR (Non-Af Amer) POC Glucose (mg/dL) 100 Random Glucose Calcium Phosphorus Magnesium Total Bilirubin AST ALT Alkaline Phosphatase Troponin I NT-Pro-B Natriuret Pep Total Protein Albumin Globulin Albumin/Globulin Ratio Triglycerides Cholesterol LDL Cholesterol Direct HDL Cholesterol Arterial Blood Potassium Venous Blood Potassium Urine Color Urine Clarity Urine pH Ur Specific [place] Urine Protein Urine Glucose (UA) Urine Ketones Urine Blood Urine Nitrate Urine Bilirubin Urine Urobilinogen Ur Leukocyte Esterase Urine WBC (Auto) Urine RBC (Auto) Ur Squamous Epith Cells Urine Bacteria Influenza Typ A,B (EIA) 09/05/2103/14/18 03/14/18 09:30 09:33 09:53 WBC RBC Hgb Hct MCV MCH MCHC RDW Plt Count MPV Neut % (Auto) Lymph % (Auto) [place] % (Auto) Eos % (Auto) Baso % (Auto) Neut # (Auto) Lymph # (Auto) [place] # (Auto) Eos # (Auto) Baso # (Auto) Neutrophils % (Manual) Band Neutrophils % Lymphocytes % (Manual) Monocytes % (Manual) Platelet Estimate Hypochromasia (manual) Anisocytosis (manual) Ovalocytes PT INR APTT Puncture Site Rf pCO2 43 pO2 256 H HCO3 22.5 ABG pH 7.33 L ABG Total CO2 24.0 ABG O2 Saturation 100.3 H ABG Base Excess -3.2 L Joseph Test Na ABG Potassium 3.4 L VBG pH VBG pCO2 VBG HCO3 VBG Total CO2 VBG O2 Sat (Calc) VBG Base Excess VBG Potassium A-a O2 Difference 403.0 Respiratory Index 1.6 Glucose 99 Lactate 1.9 Vent Mode Prvc Mechanical Rate 14 FiO2 100.0 Tidal Volume 500 PEEP 5 Sodium 142 141.0 Potassium 3.6 Chloride 106 112.0 H Carbon Dioxide 26 Anion Gap 14 BUN 21 H Creatinine 1.0 Est GFR ( Amer) > 60 Est GFR (Non-Af Amer) > 60 POC Glucose (mg/dL) Random Glucose 106 Calcium 8.7 Phosphorus 2.5 Magnesium 1.7 Total Bilirubin 0.7 AST 28 ALT 17 L D Alkaline Phosphatase 51 Troponin I 1.3100 H* NT-Pro-B Natriuret Pep 7420 H Total Protein 6.3 Albumin 2.9 L Globulin 3.4 Albumin/Globulin Ratio 0.8 L Triglycerides Cholesterol LDL Cholesterol Direct HDL Cholesterol Arterial Blood Potassium 3.4 L Venous Blood Potassium Urine Color Yellow Urine Clarity Hazy Urine pH 5.0 Ur Specific [place] 1.015 Urine Protein 1+ H Urine Glucose (UA) Normal Urine Ketones Trace Urine Blood 3+ H Urine Nitrate Negative Urine Bilirubin Negative Urine Urobilinogen Normal Ur Leukocyte Esterase 3+ H Urine WBC (Auto) 291 H Urine RBC (Auto) 275 H Ur Squamous Epith Cells 22 H Urine Bacteria Few H Influenza Typ A,B (EIA) 03/14/18 03/14/18 03/14/18 15:45 17:23 18:09 WBC RBC Hgb Hct MCV MCH MCHC RDW Plt Count MPV Neut % (Auto) Lymph % (Auto) [place] % (Auto) Eos % (Auto) Baso % (Auto) Neut # (Auto) Lymph # (Auto) [place] # (Auto) Eos # (Auto) Baso # (Auto) Neutrophils % (Manual) Band Neutrophils % Lymphocytes % (Manual) Monocytes % (Manual) Platelet Estimate Hypochromasia (manual) Anisocytosis (manual) Ovalocytes PT INR APTT Puncture Site pCO2 pO2 62 H HCO3 ABG pH ABG Total CO2 ABG O2 Saturation ABG Base Excess Joseph Test ABG Potassium VBG pH 7.32 VBG pCO2 47 VBG HCO3 23.0 VBG Total CO2 25.6 VBG O2 Sat (Calc) 93.9 H VBG Base Excess -2.2 L VBG Potassium 4.1 A-a O2 Difference Respiratory Index Glucose 85 Lactate 2.5 H Vent Mode Mechanical Rate FiO2 21.0 Tidal Volume PEEP Sodium 139.0 Potassium Chloride 104.0 Carbon Dioxide Anion Gap BUN Creatinine Est GFR ( Amer) Est GFR (Non-Af Amer) POC Glucose (mg/dL) Random Glucose Calcium Phosphorus Magnesium Total Bilirubin AST ALT Alkaline Phosphatase Troponin I NT-Pro-B Natriuret Pep Total Protein Albumin Globulin Albumin/Globulin Ratio Triglycerides 58 Cholesterol 80 LDL Cholesterol Direct 42 HDL Cholesterol 24 L Arterial Blood Potassium Venous Blood Potassium 4.1 Urine Color Urine Clarity Urine pH Ur Specific [place] Urine Protein Urine Glucose (UA) Urine Ketones Urine Blood Urine Nitrate Urine Bilirubin Urine Urobilinogen Ur Leukocyte Esterase Urine WBC (Auto) Urine RBC (Auto) Ur Squamous Epith Cells Urine Bacteria Influenza Typ A,B (EIA) Negative for flu a/b Attending/Attestation - Attestation I have personally seen and examined this patient.: Yes I have fully participated in the care of the patient.: Yes I have reviewed all pertinent clinical information: Yes Notes (Text): 03/14/18 18:40 patient seen and examined 73 year old male with history of HTN, HLD, BPH, schizophrenia, CKD, CHF, dementia who was sent in for [facility] after he was found altered with poor O2 saturation. CT brain found to have large left MCA infarct. Troponins elevated.
[2018-03-14] MEDS ORDERED: Sodium Chloride 0.9% 500 ML IV ONE (15:13)
--- NOTE | 2018-03-14 15:31 | CP.PCM.CON ---
History of Present Illness - History of Present Illness History of Present Illness: dictated Past Patient History - Infectious Disease Hx of Infectious Diseases: None - Tetanus Immunizations Tetanus Immunization: Unknown - Past Medical History & Family History Past Medical History?: Yes - Past Social History Smoking Status: Never Smoked - CARDIAC Hx Congestive Heart Failure: Yes Hx Hypercholesterolemia: Yes Hx Hypertension: Yes - PULMONARY Hx Asthma: Yes Hx Chronic Obstructive Pulmonary Disease (COPD): Yes Hx Pneumonia: Yes - HEENT Hx HEENT Problems: Yes Hx Cataracts: Yes Other/Comment: hard of hearing - RENAL Hx Chronic Kidney Disease: Yes (renal insufficiency) - PSYCHIATRIC Hx Anxiety: Yes Hx Bipolar Disorder: Yes Hx Depression: Yes Hx Schizophrenia: Yes Hx Substance Use: No - SURGICAL HISTORY Hx Tonsillectomy: Yes - ANESTHESIA Hx Anesthesia: Yes Hx Anesthesia Reactions: No Hx Malignant Hyperthermia: No Meds Allergies/Adverse Reactions: Allergies Allergy/AdvReac Type Severity Reaction Status Date / Time No Known Allergies Allergy Verified 03/14/18 09:01 - Medications Medications: Current Medications Aspirin (Aspirin Chewable) 81 mg PO DAILY [facility] Piperacillin Sod/Tazobactam (Sod 3.375 gm/ Sodium Chloride) 100 mls @ 200 mls/ hr IVPB ONCE ONE PRN Reason: Protocol Stop: 03/14/18 21:33 Last Admin: 03/14/18 10:07 Dose: 200 mls/hr Sodium Chloride (Sodium Chloride 0.9%) 1,000 mls @ 500 mls/hr IV .Q2H [facility] Last Admin: 03/14/18 10:59 Dose: 500 mls/hr Levetiracetam 1,000 mg/ (Dextrose) 110 mls @ 420 mls/hr IVPB Q12H [facility] Last Admin: 03/14/18 11:15 Dose: 420 mls/hr Vancomycin/Sodium Chloride (Vancomycin 1 Gm/Ns 200 Ml) 1 gm in 200 mls @ 133.333 mls/hr IVPB Q12H [facility] PRN Reason: Protocol Stop: 03/19/18 16:01 Fentanyl Citrate 2,500 mcg/ (Sodium Chloride) 250 mls @ 12.97 mls/hr IV .[id number] [facility]; 2 MCG/KG/HR PRN Reason: Protocol Sodium Chloride (Sodium Chloride 0.9%) 500 mls @ 1,000 mls/hr IV .Q30M ONE Stop: 03/14/18 15:42 Sodium Chloride (Sodium Chloride 0.9%) 1,000 mls @ 125 mls/hr IV .Q8H [facility] Pantoprazole Sodium (Protonix Inj) 40 mg IVP DAILY [facility] Rosuvastatin Calcium (Crestor) 10 mg PO HS [facility] Tamsulosin HCl (Flomax) 0.4 mg PO DAILY [facility] Results - Vital Signs Recent Vital Signs: Last Vital Signs Temp 98.4 F 03/14/18 10:16 Pulse 95 H 03/14/18 14:30 Resp 12 03/14/18 14:30 BP 91/50 L 03/14/18 14:23 Pulse Ox 100 03/14/18 14:30 - Labs Result Diagrams: 03/14/18 09:30 03/14/18 09:30 Labs: Laboratory Results - last 24 hr 03/14/18 03/14/18 03/14/18 08:41 09:30 09:30 WBC 10.2 RBC 3.74 L Hgb 10.5 L Hct 31.2 L MCV 83.5 D MCH 28.1 MCHC 33.7 RDW 15.8 H Plt Count 168 MPV 10.4 Neut % (Auto) 85.6 H Lymph % (Auto) 6.5 L [place] % (Auto) 7.5 Eos % (Auto) 0.1 Baso % (Auto) 0.3 Neut # (Auto) 8.7 H Lymph # (Auto) 0.7 L [place] # (Auto) 0.8 Eos # (Auto) 0.0 Baso # (Auto) 0.0 Neutrophils % (Manual) 86 H Band Neutrophils % 1 Lymphocytes % (Manual) 5 L Monocytes % (Manual) 8 Platelet Estimate Normal Hypochromasia (manual) Slight Anisocytosis (manual) Slight Ovalocytes Slight PT 17.4 H INR 1.6 APTT 31 Puncture Site pCO2 pO2 HCO3 ABG pH ABG Total CO2 ABG O2 Saturation ABG Base Excess Joseph Test ABG Potassium A-a O2 Difference Respiratory Index Glucose Lactate Vent Mode Mechanical Rate FiO2 Tidal Volume PEEP Sodium Potassium Chloride Carbon Dioxide Anion Gap BUN Creatinine Est GFR ( Amer) Est GFR (Non-Af Amer) POC Glucose (mg/dL) 100 Random Glucose Calcium Phosphorus Magnesium Total Bilirubin AST ALT Alkaline Phosphatase Troponin I NT-Pro-B Natriuret Pep Total Protein Albumin Globulin Albumin/Globulin Ratio Arterial Blood Potassium Urine Color Urine Clarity Urine pH Ur Specific [place] Urine Protein Urine Glucose (UA) Urine Ketones Urine Blood Urine Nitrate Urine Bilirubin Urine Urobilinogen Ur Leukocyte Esterase Urine WBC (Auto) Urine RBC (Auto) Ur Squamous Epith Cells Urine Bacteria 03/14/18 03/14/18 03/14/18 09:30 09:33 09:53 WBC RBC Hgb Hct MCV MCH MCHC RDW Plt Count MPV Neut % (Auto) Lymph % (Auto) [place] % (Auto) Eos % (Auto) Baso % (Auto) Neut # (Auto) Lymph # (Auto) [place] # (Auto) Eos # (Auto) Baso # (Auto) Neutrophils % (Manual) Band Neutrophils % Lymphocytes % (Manual) Monocytes % (Manual) Platelet Estimate Hypochromasia (manual) Anisocytosis (manual) Ovalocytes PT INR APTT Puncture Site Rf pCO2 43 pO2 256 H HCO3 22.5 ABG pH 7.33 L ABG Total CO2 24.0 ABG O2 Saturation 100.3 H ABG Base Excess -3.2 L Joseph Test Na ABG Potassium 3.4 L A-a O2 Difference 403.0 Respiratory Index 1.6 Glucose 99 Lactate 1.9 Vent Mode Prvc Mechanical Rate 14 FiO2 100.0 Tidal Volume 500 PEEP 5 Sodium 142 141.0 Potassium 3.6 Chloride 106 112.0 H Carbon Dioxide 26 Anion Gap 14 BUN 21 H Creatinine 1.0 Est GFR ( Amer) > 60 Est GFR (Non-Af Amer) > 60 POC Glucose (mg/dL) Random Glucose 106 Calcium 8.7 Phosphorus 2.5 Magnesium 1.7 Total Bilirubin 0.7 AST 28 ALT 17 L D Alkaline Phosphatase 51 Troponin I 1.3100 H* NT-Pro-B Natriuret Pep 7420 H Total Protein 6.3 Albumin 2.9 L Globulin 3.4 Albumin/Globulin Ratio 0.8 L Arterial Blood Potassium 3.4 L Urine Color Yellow Urine Clarity Hazy Urine pH 5.0 Ur Specific [place] 1.015 Urine Protein 1+ H Urine Glucose (UA) Normal Urine Ketones Trace Urine Blood 3+ H Urine Nitrate Negative Urine Bilirubin Negative Urine Urobilinogen Normal Ur Leukocyte Esterase 3+ H Urine WBC (Auto) 291 H Urine RBC (Auto) 275 H Ur Squamous Epith Cells 22 H Urine Bacteria Few H
[2018-03-14] MEDS: Vancomycin 1 gm/NS 200 ml 1 GM/200 ML BAG IVPB SCH (15:45)
[2018-03-14] MEDS: Sodium Chloride 0.9% 1,000 ML IV SCH ×2 (15:45→23:40)
[2018-03-14 15:56] LABS: VENOUS BLOOD GAS BASE EXCESS -2.2 mmol/L (0.0-2.0); VENOUS BLOOD GAS PCO2 47 mmHg (40-60); VENOUS BLOOD GAS PO2 62 mm/Hg (30-55); VENOUS BLOOD PH 7.32 (7.32-7.43)
[2018-03-14] MEDS: Meropenem 1 GM in Sodium Chloride 0.9% 100 ML IVPB SCH (17:57)
[2018-03-14 18:49] LABS: TROPONIN I 1.65 ng/mL (0.00-0.120)
--- NOTE | 2018-03-14 20:16 | CP.PCM.CON ---
<Kathy Trinidad E - Last Filed: 03/14/18 20:13> History of Present Illness - History of Present Illness History of Present Illness: Cardiology consult note ( Dr. Ramirez's service) CC: Positive troponin HPI: ( As per EMR due to current patient's status) Patient is a 73 year old male with history of HTN, HLD, BPH, schizophrenia, CKD , CHF, dementia who was sent in for [facility] after he was found altered with poor O2 saturation. Patient unable to provide history. Patient was reportedly last behaving normally as per [facility] staff last night. Patient is full code. PMH: CHF, HTN, HLD, paranoid schizophrenia, CKD, BPH, recurrent UTIs, dementia PSH: tonsillectomy Family hx: mother of cardiac issues, father - emphysema Social: No alcohol, tobacco or drug use Home meds: ASA 81mg Proscar 5mg daily, Flomax 0.4mg daily, Remeron 30mg HS, Megace 400mg, Depakote 250mg Am, Depakote 500mg PM, Vit D supplement, Metoprolol 12.5mg PO, Lasix 20mg daily Allergies: NKDA Review of Systems - Review of Systems Review of Systems: Unable to obtain ROS due to current's status Past Patient History - Infectious Disease Hx of Infectious Diseases: None - Tetanus Immunizations Tetanus Immunization: Unknown - Past Medical History & Family History Past Medical History?: Yes - Past Social History Smoking Status: Never Smoked - CARDIAC Hx Congestive Heart Failure: Yes Hx Hypercholesterolemia: Yes Hx Hypertension: Yes - PULMONARY Hx Asthma: Yes Hx Chronic Obstructive Pulmonary Disease (COPD): Yes Hx Pneumonia: Yes - HEENT Hx HEENT Problems: Yes Hx Cataracts: Yes Other/Comment: hard of hearing - RENAL Hx Chronic Kidney Disease: Yes (renal insufficiency) - PSYCHIATRIC Hx Anxiety: Yes Hx Bipolar Disorder: Yes Hx Depression: Yes Hx Schizophrenia: Yes Hx Substance Use: No - SURGICAL HISTORY Hx Tonsillectomy: Yes - ANESTHESIA Hx Anesthesia: Yes Hx Anesthesia Reactions: No Hx Malignant Hyperthermia: No Meds Allergies/Adverse Reactions: Allergies Allergy/AdvReac Type Severity Reaction Status Date / Time No Known Allergies Allergy Verified 03/14/18 09:01 - Medications Medications: Current Medications Aspirin (Aspirin Chewable) 81 mg PO DAILY [facility] Levetiracetam 1,000 mg/ (Dextrose) 110 mls @ 420 mls/hr IVPB Q12H [facility] Last Admin: 03/14/18 11:15 Dose: 420 mls/hr Vancomycin/Sodium Chloride (Vancomycin 1 Gm/Ns 200 Ml) 1 gm in 200 mls @ 133.333 mls/hr IVPB Q12H [facility] PRN Reason: Protocol Stop: 03/19/18 16:01 Last Admin: 03/14/18 15:45 Dose: 133.333 mls/hr Fentanyl Citrate 2,500 mcg/ (Sodium Chloride) 250 mls @ 12.97 mls/hr IV .[id number] [facility]AN[facility]; 2 MCG/KG/HR PRN Reason: Protocol Last Admin: 03/14/18 12:10 Dose: 1 mcg/kg/hr, 6.48 mls/hr Sodium Chloride (Sodium Chloride 0.9%) 1,000 mls @ 125 mls/hr IV .Q8H [facility] Last Admin: 03/14/18 15:45 Dose: 125 mls/hr Meropenem 1 gm/ Sodium (Chloride) 100 mls @ 100 mls/hr IVPB Q8H [facility] PRN Reason: Protocol Last Admin: 03/14/18 17:57 Dose: 100 mls/hr Pantoprazole Sodium (Protonix Inj) 40 mg IVP DAILY [facility] Rosuvastatin Calcium (Crestor) 10 mg PO HS [facility] Tamsulosin HCl (Flomax) 0.4 mg PO DAILY [facility] Physical Exam - Head Exam Head Exam: ATRAUMATIC - Eye Exam Additional comments: On sedation - Respiratory Exam Respiratory Exam: NORMAL BREATHING PATTERN Additional comments: Intubation, ETT - Cardiovascular Exam Cardiovascular Exam: REGULAR RHYTHM - GI/Abdominal Exam GI & Abdominal Exam: Normal Bowel Sounds, Soft - Extremities Exam Extremities exam: Negative for: pedal edema Results - Vital Signs Recent Vital Signs: Last Vital Signs Temp 98.1 F 03/14/18 12:30 Pulse 90 03/14/18 19:30 Resp 17 03/14/18 19:30 BP 89/54 L 03/14/18 19:20 Pulse Ox 100 03/14/18 19:30 - Labs Result Diagrams: 03/14/18 09:30 03/14/18 09:30 Labs: Laboratory Results - last 24 hr 03/14/18 03/14/18 03/14/18 08:41 09:30 09:30 WBC 10.2 RBC 3.74 L Hgb 10.5 L Hct 31.2 L MCV 83.5 D MCH 28.1 MCHC 33.7 RDW 15.8 H Plt Count 168 MPV 10.4 Neut % (Auto) 85.6 H Lymph % (Auto) 6.5 L [place] % (Auto) 7.5 Eos % (Auto) 0.1 Baso % (Auto) 0.3 Neut # (Auto) 8.7 H Lymph # (Auto) 0.7 L [place] # (Auto) 0.8 Eos # (Auto) 0.0 Baso # (Auto) 0.0 Neutrophils % (Manual) 86 H Band Neutrophils % 1 Lymphocytes % (Manual) 5 L Monocytes % (Manual) 8 Platelet Estimate Normal Hypochromasia (manual) Slight Anisocytosis (manual) Slight Ovalocytes Slight PT 17.4 H INR 1.6 APTT 31 Puncture Site pCO2 pO2 HCO3 ABG pH ABG Total CO2 ABG O2 Saturation ABG Base Excess Joseph Test ABG Potassium VBG pH VBG pCO2 VBG HCO3 VBG Total CO2 VBG O2 Sat (Calc) VBG Base Excess VBG Potassium A-a O2 Difference Respiratory Index Glucose Lactate Vent Mode Mechanical Rate FiO2 Tidal Volume PEEP Sodium Potassium Chloride Carbon Dioxide Anion Gap BUN Creatinine Est GFR ( Amer) Est GFR (Non-Af Amer) POC Glucose (mg/dL) 100 Random Glucose Calcium Phosphorus Magnesium Total Bilirubin AST ALT Alkaline Phosphatase Troponin I NT-Pro-B Natriuret Pep Total Protein Albumin Globulin Albumin/Globulin Ratio Triglycerides Cholesterol LDL Cholesterol Direct HDL Cholesterol Free T4 TSH 3rd Generation Arterial Blood Potassium Venous Blood Potassium Urine Color Urine Clarity Urine pH Ur Specific Success Urine Protein Urine Glucose (UA) Urine Ketones Urine Blood Urine Nitrate Urine Bilirubin Urine Urobilinogen Ur Leukocyte Esterase Urine WBC (Auto) Urine RBC (Auto) Ur Squamous Epith Cells Urine Bacteria Influenza Typ A,B (EIA) Ur L.pneumophila Ag 03/14/18 03/14/18 03/14/18 09:30 09:33 09:53 WBC RBC Hgb Hct MCV MCH MCHC RDW Plt Count MPV Neut % (Auto) Lymph % (Auto) [place] % (Auto) Eos % (Auto) Baso % (Auto) Neut # (Auto) Lymph # (Auto) [place] # (Auto) Eos # (Auto) Baso # (Auto) Neutrophils % (Manual) Band Neutrophils % Lymphocytes % (Manual) Monocytes % (Manual) Platelet Estimate Hypochromasia (manual) Anisocytosis (manual) Ovalocytes PT INR APTT Puncture Site Rf pCO2 43 pO2 256 H HCO3 22.5 ABG pH 7.33 L ABG Total CO2 24.0 ABG O2 Saturation 100.3 H ABG Base Excess -3.2 L Joseph Test Na ABG Potassium 3.4 L VBG pH VBG pCO2 VBG HCO3 VBG Total CO2 VBG O2 Sat (Calc) VBG Base Excess VBG Potassium A-a O2 Difference 403.0 Respiratory Index 1.6 Glucose 99 Lactate 1.9 Vent Mode Prvc Mechanical Rate 14 FiO2 100.0 Tidal Volume 500 PEEP 5 Sodium 142 141.0 Potassium 3.6 Chloride 106 112.0 H Carbon Dioxide 26 Anion Gap 14 BUN 21 H Creatinine 1.0 Est GFR ( Amer) > 60 Est GFR (Non-Af Amer) > 60 POC Glucose (mg/dL) Random Glucose 106 Calcium 8.7 Phosphorus 2.5 Magnesium 1.7 Total Bilirubin 0.7 AST 28 ALT 17 L D Alkaline Phosphatase 51 Troponin I 1.3100 H* NT-Pro-B Natriuret Pep 7420 H Total Protein 6.3 Albumin 2.9 L Globulin 3.4 Albumin/Globulin Ratio 0.8 L Triglycerides Cholesterol LDL Cholesterol Direct HDL Cholesterol Free T4 TSH 3rd Generation Arterial Blood Potassium 3.4 L Venous Blood Potassium Urine Color Yellow Urine Clarity Hazy Urine pH 5.0 Ur Specific Success 1.015 Urine Protein 1+ H Urine Glucose (UA) Normal Urine Ketones Trace Urine Blood 3+ H Urine Nitrate Negative Urine Bilirubin Negative Urine Urobilinogen Normal Ur Leukocyte Esterase 3+ H Urine WBC (Auto) 291 H Urine RBC (Auto) 275 H Ur Squamous Epith Cells 22 H Urine Bacteria Few H Influenza Typ A,B (EIA) Ur L.pneumophila Ag 03/14/18 03/14/18 03/14/18 15:45 17:23 18:09 WBC RBC Hgb Hct MCV MCH MCHC RDW Plt Count MPV Neut % (Auto) Lymph % (Auto) [place] % (Auto) Eos % (Auto) Baso % (Auto) Neut # (Auto) Lymph # (Auto) [place] # (Auto) Eos # (Auto) Baso # (Auto) Neutrophils % (Manual) Band Neutrophils % Lymphocytes % (Manual) Monocytes % (Manual) Platelet Estimate Hypochromasia (manual) Anisocytosis (manual) Ovalocytes PT INR APTT Puncture Site pCO2 pO2 62 H HCO3 ABG pH ABG Total CO2 ABG O2 Saturation ABG Base Excess Joseph Test ABG Potassium VBG pH 7.32 VBG pCO2 47 VBG HCO3 23.0 VBG Total CO2 25.6 VBG O2 Sat (Calc) 93.9 H VBG Base Excess -2.2 L VBG Potassium 4.1 A-a O2 Difference Respiratory Index Glucose 85 Lactate 2.5 H Vent Mode Mechanical Rate FiO2 21.0 Tidal Volume PEEP Sodium 139.0 Potassium Chloride 104.0 Carbon Dioxide Anion Gap BUN Creatinine Est GFR ( Amer) Est GFR (Non-Af Amer) POC Glucose (mg/dL) Random Glucose Calcium Phosphorus Magnesium Total Bilirubin AST ALT Alkaline Phosphatase Troponin I 1.6500 H* NT-Pro-B Natriuret Pep Total Protein Albumin Globulin Albumin/Globulin Ratio Triglycerides 58 Cholesterol 80 LDL Cholesterol Direct 42 HDL Cholesterol 24 L Free T4 TSH 3rd Generation 1.74 Arterial Blood Potassium Venous Blood Potassium 4.1 Urine Color Urine Clarity Urine pH Ur Specific Success Urine Protein Urine Glucose (UA) Urine Ketones Urine Blood Urine Nitrate Urine Bilirubin Urine Urobilinogen Ur Leukocyte Esterase Urine WBC (Auto) Urine RBC (Auto) Ur Squamous Epith Cells Urine Bacteria Influenza Typ A,B (EIA) Negative for flu a/b Ur L.pneumophila Ag 03/14/18 03/14/18 03/14/18 18:09 18:09 Unknown WBC RBC Hgb Hct MCV MCH MCHC RDW Plt Count MPV Neut % (Auto) Lymph % (Auto) [place] % (Auto) Eos % (Auto) Baso % (Auto) Neut # (Auto) Lymph # (Auto) [place] # (Auto) Eos # (Auto) Baso # (Auto) Neutrophils % (Manual) Band Neutrophils % Lymphocytes % (Manual) Monocytes % (Manual) Platelet Estimate Hypochromasia (manual) Anisocytosis (manual) Ovalocytes PT INR APTT Puncture Site pCO2 pO2 HCO3 ABG pH ABG Total CO2 ABG O2 Saturation ABG Base Excess Joseph Test ABG Potassium VBG pH VBG pCO2 VBG HCO3 VBG Total CO2 VBG O2 Sat (Calc) VBG Base Excess VBG Potassium A-a O2 Difference Respiratory Index Glucose Lactate Vent Mode Mechanical Rate FiO2 Tidal Volume PEEP Sodium Potassium Chloride Carbon Dioxide Anion Gap BUN Creatinine Est GFR ( Amer) Est GFR (Non-Af Amer) POC Glucose (mg/dL) Random Glucose Calcium Phosphorus Magnesium Total Bilirubin AST ALT Alkaline Phosphatase Troponin I 1.6500 H* NT-Pro-B Natriuret Pep Total Protein Albumin Globulin Albumin/Globulin Ratio Triglycerides Cholesterol LDL Cholesterol Direct HDL Cholesterol Free T4 2.12 TSH 3rd Generation Arterial Blood Potassium Venous Blood Potassium Urine Color Urine Clarity Urine pH Ur Specific Success Urine Protein Urine Glucose (UA) Urine Ketones Urine Blood Urine Nitrate Urine Bilirubin Urine Urobilinogen Ur Leukocyte Esterase Urine WBC (Auto) Urine RBC (Auto) Ur Squamous Epith Cells Urine Bacteria Influenza Typ A,B (EIA) Ur L.pneumophila Ag Negative Assessment & Plan (1) Non-STEMI (non-ST elevated myocardial infarction) Assessment and Plan: 1.3100--->1.6500 Lipid panel: - TGL: 58, Chol: 80, LDL:42 and HDL: 24 TSH 3rd gen and free T4: 1.74 and 2.12 BNP: 7420 EKG: T-wave abnormality in V2 and V3 F/u echocardiogram ASA 81mg PO daily Crestor 10mg PO HS Patient is currently not a candidate for cardiac catherization. Please continue medical management at this time Status: Acute (2) Stroke Assessment and Plan: HEAD CT: Large acute left MCA territory infarct as detailed above. No hemorrhage. 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 Management as per neurology: * ASA 81mg PO daily * Crestor 10mg PO HS * Keppra 1,000mg IV Q12H All plans and management discussed with Dr. Ramirez Status: Acute <Sushil Ramierz - Last Filed: 03/14/18 22:19> Meds - Medications Medications: Current Medications Aspirin (Aspirin Chewable) 81 mg PO DAILY [facility] Levetiracetam 1,000 mg/ (Dextrose) 110 mls @ 420 mls/hr IVPB Q12H [facility] Last Admin: 03/14/18 11:15 Dose: 420 mls/hr Vancomycin/Sodium Chloride (Vancomycin 1 Gm/Ns 200 Ml) 1 gm in 200 mls @ 133.333 mls/hr IVPB Q12H [facility] PRN Reason: Protocol Stop: 03/19/18 16:01 Last Admin: 03/14/18 15:45 Dose: 133.333 mls/hr Fentanyl Citrate 2,500 mcg/ (Sodium Chloride) 250 mls @ 12.97 mls/hr IV .[id number] [facility]ANSHYAM; 2 MCG/KG/HR PRN Reason: Protocol Last Admin: 03/14/18 12:10 Dose: 1 mcg/kg/hr, 6.48 mls/hr Sodium Chloride (Sodium Chloride 0.9%) 1,000 mls @ 125 mls/hr IV .Q8H [facility] Last Admin: 03/14/18 15:45 Dose: 125 mls/hr Meropenem 1 gm/ Sodium (Chloride) 100 mls @ 100 mls/hr IVPB Q8H [facility] PRN Reason: Protocol Last Admin: 03/14/18 17:57 Dose: 100 mls/hr Pantoprazole Sodium (Protonix Inj) 40 mg IVP DAILY [facility] Rosuvastatin Calcium (Crestor) 10 mg PO HS [facility] Tamsulosin HCl (Flomax) 0.4 mg PO DAILY [facility] Results - Vital Signs Recent Vital Signs: Last Vital Signs Temp 98.2 F 03/14/18 20:00 Pulse 88 03/14/18 22:05 Resp 13 03/14/18 22:05 BP 86/53 L 03/14/18 22:05 Pulse Ox 100 03/14/18 22:05 - Labs Result Diagrams: 03/14/18 09:30 03/14/18 09:30 Labs: Laboratory Results - last 24 hr 03/14/18 03/14/18 03/14/18 08:41 09:30 09:30 WBC 10.2 RBC 3.74 L Hgb 10.5 L Hct 31.2 L MCV 83.5 D MCH 28.1 MCHC 33.7 RDW 15.8 H Plt Count 168 MPV 10.4 Neut % (Auto) 85.6 H Lymph % (Auto) 6.5 L [place] % (Auto) 7.5 Eos % (Auto) 0.1 Baso % (Auto) 0.3 Neut # (Auto) 8.7 H Lymph # (Auto) 0.7 L [place] # (Auto) 0.8 Eos # (Auto) 0.0 Baso # (Auto) 0.0 Neutrophils % (Manual) 86 H Band Neutrophils % 1 Lymphocytes % (Manual) 5 L Monocytes % (Manual) 8 Platelet Estimate Normal Hypochromasia (manual) Slight Anisocytosis (manual) Slight Ovalocytes Slight PT 17.4 H INR 1.6 APTT 31 Puncture Site pCO2 pO2 HCO3 ABG pH ABG Total CO2 ABG O2 Saturation ABG Base Excess Joseph Test ABG Potassium VBG pH VBG pCO2 VBG HCO3 VBG Total CO2 VBG O2 Sat (Calc) VBG Base Excess VBG Potassium A-a O2 Difference Respiratory Index Glucose Lactate Vent Mode Mechanical Rate FiO2 Tidal Volume PEEP Sodium Potassium Chloride Carbon Dioxide Anion Gap BUN Creatinine Est GFR ( Amer) Est GFR (Non-Af Amer) POC Glucose (mg/dL) 100 Random Glucose Calcium Phosphorus Magnesium Total Bilirubin AST ALT Alkaline Phosphatase Troponin I NT-Pro-B Natriuret Pep Total Protein Albumin Globulin Albumin/Globulin Ratio Triglycerides Cholesterol LDL Cholesterol Direct HDL Cholesterol Free T4 TSH 3rd Generation Arterial Blood Potassium Venous Blood Potassium Urine Color Urine Clarity Urine pH Ur Specific Success Urine Protein Urine Glucose (UA) Urine Ketones Urine Blood Urine Nitrate Urine Bilirubin Urine Urobilinogen Ur Leukocyte Esterase Urine WBC (Auto) Urine RBC (Auto) Ur Squamous Epith Cells Urine Bacteria Influenza Typ A,B (EIA) Ur L.pneumophila Ag 03/14/18 03/14/18 03/14/18 09:30 09:33 09:53 WBC RBC Hgb Hct MCV MCH MCHC RDW Plt Count MPV Neut % (Auto) Lymph % (Auto) [place] % (Auto) Eos % (Auto) Baso % (Auto) Neut # (Auto) Lymph # (Auto) [place] # (Auto) Eos # (Auto) Baso # (Auto) Neutrophils % (Manual) Band Neutrophils % Lymphocytes % (Manual) Monocytes % (Manual) Platelet Estimate Hypochromasia (manual) Anisocytosis (manual) Ovalocytes PT INR APTT Puncture Site Rf pCO2 43 pO2 256 H HCO3 22.5 ABG pH 7.33 L ABG Total CO2 24.0 ABG O2 Saturation 100.3 H ABG Base Excess -3.2 L Joseph Test Na ABG Potassium 3.4 L VBG pH VBG pCO2 VBG HCO3 VBG Total CO2 VBG O2 Sat (Calc) VBG Base Excess VBG Potassium A-a O2 Difference 403.0 Respiratory Index 1.6 Glucose 99 Lactate 1.9 Vent Mode Prvc Mechanical Rate 14 FiO2 100.0 Tidal Volume 500 PEEP 5 Sodium 142 141.0 Potassium 3.6 Chloride 106 112.0 H Carbon Dioxide 26 Anion Gap 14 BUN 21 H Creatinine 1.0 Est GFR ( Amer) > 60 Est GFR (Non-Af Amer) > 60 POC Glucose (mg/dL) Random Glucose 106 Calcium 8.7 Phosphorus 2.5 Magnesium 1.7 Total Bilirubin 0.7 AST 28 ALT 17 L D Alkaline Phosphatase 51 Troponin I 1.3100 H* NT-Pro-B Natriuret Pep 7420 H Total Protein 6.3 Albumin 2.9 L Globulin 3.4 Albumin/Globulin Ratio 0.8 L Triglycerides Cholesterol LDL Cholesterol Direct HDL Cholesterol Free T4 TSH 3rd Generation Arterial Blood Potassium 3.4 L Venous Blood Potassium Urine Color Yellow Urine Clarity Hazy Urine pH 5.0 Ur Specific Success 1.015 Urine Protein 1+ H Urine Glucose (UA) Normal Urine Ketones Trace Urine Blood 3+ H Urine Nitrate Negative Urine Bilirubin Negative Urine Urobilinogen Normal Ur Leukocyte Esterase 3+ H Urine WBC (Auto) 291 H Urine RBC (Auto) 275 H Ur Squamous Epith Cells 22 H Urine Bacteria Few H Influenza Typ A,B (EIA) Ur L.pneumophila Ag 03/14/18 03/14/18 03/14/18 15:45 17:23 18:09 WBC RBC Hgb Hct MCV MCH MCHC RDW Plt Count MPV Neut % (Auto) Lymph % (Auto) [place] % (Auto) Eos % (Auto) Baso % (Auto) Neut # (Auto) Lymph # (Auto) [place] # (Auto) Eos # (Auto) Baso # (Auto) Neutrophils % (Manual) Band Neutrophils % Lymphocytes % (Manual) Monocytes % (Manual) Platelet Estimate Hypochromasia (manual) Anisocytosis (manual) Ovalocytes PT INR APTT Puncture Site pCO2 pO2 62 H HCO3 ABG pH ABG Total CO2 ABG O2 Saturation ABG Base Excess Joseph Test ABG Potassium VBG pH 7.32 VBG pCO2 47 VBG HCO3 23.0 VBG Total CO2 25.6 VBG O2 Sat (Calc) 93.9 H VBG Base Excess -2.2 L VBG Potassium 4.1 A-a O2 Difference Respiratory Index Glucose 85 Lactate 2.5 H Vent Mode Mechanical Rate FiO2 21.0 Tidal Volume PEEP Sodium 139.0 Potassium Chloride 104.0 Carbon Dioxide Anion Gap BUN Creatinine Est GFR ( Amer) Est GFR (Non-Af Amer) POC Glucose (mg/dL) Random Glucose Calcium Phosphorus Magnesium Total Bilirubin AST ALT Alkaline Phosphatase Troponin I 1.6500 H* NT-Pro-B Natriuret Pep Total Protein Albumin Globulin Albumin/Globulin Ratio Triglycerides 58 Cholesterol 80 LDL Cholesterol Direct 42 HDL Cholesterol 24 L Free T4 TSH 3rd Generation 1.74 Arterial Blood Potassium Venous Blood Potassium 4.1 Urine Color Urine Clarity Urine pH Ur Specific Success Urine Protein Urine Glucose (UA) Urine Ketones Urine Blood Urine Nitrate Urine Bilirubin Urine Urobilinogen Ur Leukocyte Esterase Urine WBC (Auto) Urine RBC (Auto) Ur Squamous Epith Cells Urine Bacteria Influenza Typ A,B (EIA) Negative for flu a/b Ur L.pneumophila Ag 03/14/18 03/14/18 03/14/18 18:09 18:09 Unknown WBC RBC Hgb Hct MCV MCH MCHC RDW Plt Count MPV Neut % (Auto) Lymph % (Auto) [place] % (Auto) Eos % (Auto) Baso % (Auto) Neut # (Auto) Lymph # (Auto) [place] # (Auto) Eos # (Auto) Baso # (Auto) Neutrophils % (Manual) Band Neutrophils % Lymphocytes % (Manual) Monocytes % (Manual) Platelet Estimate Hypochromasia (manual) Anisocytosis (manual) Ovalocytes PT INR APTT Puncture Site pCO2 pO2 HCO3 ABG pH ABG Total CO2 ABG O2 Saturation ABG Base Excess Joseph Test ABG Potassium VBG pH VBG pCO2 VBG HCO3 VBG Total CO2 VBG O2 Sat (Calc) VBG Base Excess VBG Potassium A-a O2 Difference Respiratory Index Glucose Lactate Vent Mode Mechanical Rate FiO2 Tidal Volume PEEP Sodium Potassium Chloride Carbon Dioxide Anion Gap BUN Creatinine Est GFR ( Amer) Est GFR (Non-Af Amer) POC Glucose (mg/dL) Random Glucose Calcium Phosphorus Magnesium Total Bilirubin AST ALT Alkaline Phosphatase Troponin I 1.6500 H* NT-Pro-B Natriuret Pep Total Protein Albumin Globulin Albumin/Globulin Ratio Triglycerides Cholesterol LDL Cholesterol Direct HDL Cholesterol Free T4 2.12 TSH 3rd Generation Arterial Blood Potassium Venous Blood Potassium Urine Color Urine Clarity Urine pH Ur Specific Success Urine Protein Urine Glucose (UA) Urine Ketones Urine Blood Urine Nitrate Urine Bilirubin Urine Urobilinogen Ur Leukocyte Esterase Urine WBC (Auto) Urine RBC (Auto) Ur Squamous Epith Cells Urine Bacteria Influenza Typ A,B (EIA) Ur L.pneumophila Ag Negative Assessment & Plan - Assessment and Plan (Free Text) Assessment: Patient seen and evaluated personally by mo Plan of care d/w the medical supply technician and as documented
[2018-03-14] MEDS ORDERED: Piperacillin/Tazobact 3.375 GM in Sodium Chloride 100 ML IVPB ONE (21:04)
--- NOTE | 2018-03-14 22:11 | CP.PCM.HP ---
Past Patient History - Infectious Disease Hx of Infectious Diseases: None - Tetanus Immunizations Tetanus Immunization: Unknown - Past Medical History & Family History Past Medical History?: Yes - Past Social History Smoking Status: Never Smoked - CARDIAC Hx Congestive Heart Failure: Yes Hx Hypercholesterolemia: Yes Hx Hypertension: Yes - PULMONARY Hx Asthma: Yes Hx Chronic Obstructive Pulmonary Disease (COPD): Yes Hx Pneumonia: Yes - HEENT Hx HEENT Problems: Yes Hx Cataracts: Yes Other/Comment: hard of hearing - RENAL Hx Chronic Kidney Disease: Yes (renal insufficiency) - PSYCHIATRIC Hx Anxiety: Yes Hx Bipolar Disorder: Yes Hx Depression: Yes Hx Schizophrenia: Yes Hx Substance Use: No - SURGICAL HISTORY Hx Tonsillectomy: Yes - ANESTHESIA Hx Anesthesia: Yes Hx Anesthesia Reactions: No Hx Malignant Hyperthermia: No Meds Allergies/Adverse Reactions: Allergies Allergy/AdvReac Type Severity Reaction Status Date / Time No Known Allergies Allergy Verified 03/14/18 09:01 Results - Vital Signs Recent Vital Signs: Last Vital Signs Temp 98.2 F 03/14/18 20:00 Pulse 86 03/14/18 21:05 Resp 9 L 03/14/18 21:05 BP 86/51 L 03/14/18 21:05 Pulse Ox 100 03/14/18 21:05 - Labs Result Diagrams: 03/14/18 09:30 03/14/18 09:30 Labs: Laboratory Results - last 24 hr 03/14/18 03/14/18 03/14/18 08:41 09:30 09:30 WBC 10.2 RBC 3.74 L Hgb 10.5 L Hct 31.2 L MCV 83.5 D MCH 28.1 MCHC 33.7 RDW 15.8 H Plt Count 168 MPV 10.4 Neut % (Auto) 85.6 H Lymph % (Auto) 6.5 L [place] % (Auto) 7.5 Eos % (Auto) 0.1 Baso % (Auto) 0.3 Neut # (Auto) 8.7 H Lymph # (Auto) 0.7 L [place] # (Auto) 0.8 Eos # (Auto) 0.0 Baso # (Auto) 0.0 Neutrophils % (Manual) 86 H Band Neutrophils % 1 Lymphocytes % (Manual) 5 L Monocytes % (Manual) 8 Platelet Estimate Normal Hypochromasia (manual) Slight Anisocytosis (manual) Slight Ovalocytes Slight PT 17.4 H INR 1.6 APTT 31 Puncture Site pCO2 pO2 HCO3 ABG pH ABG Total CO2 ABG O2 Saturation ABG Base Excess Joseph Test ABG Potassium VBG pH VBG pCO2 VBG HCO3 VBG Total CO2 VBG O2 Sat (Calc) VBG Base Excess VBG Potassium A-a O2 Difference Respiratory Index Glucose Lactate Vent Mode Mechanical Rate FiO2 Tidal Volume PEEP Sodium Potassium Chloride Carbon Dioxide Anion Gap BUN Creatinine Est GFR ( Amer) Est GFR (Non-Af Amer) POC Glucose (mg/dL) 100 Random Glucose Calcium Phosphorus Magnesium Total Bilirubin AST ALT Alkaline Phosphatase Troponin I NT-Pro-B Natriuret Pep Total Protein Albumin Globulin Albumin/Globulin Ratio Triglycerides Cholesterol LDL Cholesterol Direct HDL Cholesterol Free T4 TSH 3rd Generation Arterial Blood Potassium Venous Blood Potassium Urine Color Urine Clarity Urine pH Ur Specific [place] Urine Protein Urine Glucose (UA) Urine Ketones Urine Blood Urine Nitrate Urine Bilirubin Urine Urobilinogen Ur Leukocyte Esterase Urine WBC (Auto) Urine RBC (Auto) Ur Squamous Epith Cells Urine Bacteria Influenza Typ A,B (EIA) Ur L.pneumophila Ag 03/14/18 03/14/18 03/14/18 09:30 09:33 09:53 WBC RBC Hgb Hct MCV MCH MCHC RDW Plt Count MPV Neut % (Auto) Lymph % (Auto) [place] % (Auto) Eos % (Auto) Baso % (Auto) Neut # (Auto) Lymph # (Auto) [place] # (Auto) Eos # (Auto) Baso # (Auto) Neutrophils % (Manual) Band Neutrophils % Lymphocytes % (Manual) Monocytes % (Manual) Platelet Estimate Hypochromasia (manual) Anisocytosis (manual) Ovalocytes PT INR APTT Puncture Site Rf pCO2 43 pO2 256 H HCO3 22.5 ABG pH 7.33 L ABG Total CO2 24.0 ABG O2 Saturation 100.3 H ABG Base Excess -3.2 L Joseph Test Na ABG Potassium 3.4 L VBG pH VBG pCO2 VBG HCO3 VBG Total CO2 VBG O2 Sat (Calc) VBG Base Excess VBG Potassium A-a O2 Difference 403.0 Respiratory Index 1.6 Glucose 99 Lactate 1.9 Vent Mode Prvc Mechanical Rate 14 FiO2 100.0 Tidal Volume 500 PEEP 5 Sodium 142 141.0 Potassium 3.6 Chloride 106 112.0 H Carbon Dioxide 26 Anion Gap 14 BUN 21 H Creatinine 1.0 Est GFR ( Amer) > 60 Est GFR (Non-Af Amer) > 60 POC Glucose (mg/dL) Random Glucose 106 Calcium 8.7 Phosphorus 2.5 Magnesium 1.7 Total Bilirubin 0.7 AST 28 ALT 17 L D Alkaline Phosphatase 51 Troponin I 1.3100 H* NT-Pro-B Natriuret Pep 7420 H Total Protein 6.3 Albumin 2.9 L Globulin 3.4 Albumin/Globulin Ratio 0.8 L Triglycerides Cholesterol LDL Cholesterol Direct HDL Cholesterol Free T4 TSH 3rd Generation Arterial Blood Potassium 3.4 L Venous Blood Potassium Urine Color Yellow Urine Clarity Hazy Urine pH 5.0 Ur Specific [place] 1.015 Urine Protein 1+ H Urine Glucose (UA) Normal Urine Ketones Trace Urine Blood 3+ H Urine Nitrate Negative Urine Bilirubin Negative Urine Urobilinogen Normal Ur Leukocyte Esterase 3+ H Urine WBC (Auto) 291 H Urine RBC (Auto) 275 H Ur Squamous Epith Cells 22 H Urine Bacteria Few H Influenza Typ A,B (EIA) Ur L.pneumophila Ag 03/14/18 03/14/18 03/14/18 15:45 17:23 18:09 WBC RBC Hgb Hct MCV MCH MCHC RDW Plt Count MPV Neut % (Auto) Lymph % (Auto) [place] % (Auto) Eos % (Auto) Baso % (Auto) Neut # (Auto) Lymph # (Auto) [place] # (Auto) Eos # (Auto) Baso # (Auto) Neutrophils % (Manual) Band Neutrophils % Lymphocytes % (Manual) Monocytes % (Manual) Platelet Estimate Hypochromasia (manual) Anisocytosis (manual) Ovalocytes PT INR APTT Puncture Site pCO2 pO2 62 H HCO3 ABG pH ABG Total CO2 ABG O2 Saturation ABG Base Excess Joseph Test ABG Potassium VBG pH 7.32 VBG pCO2 47 VBG HCO3 23.0 VBG Total CO2 25.6 VBG O2 Sat (Calc) 93.9 H VBG Base Excess -2.2 L VBG Potassium 4.1 A-a O2 Difference Respiratory Index Glucose 85 Lactate 2.5 H Vent Mode Mechanical Rate FiO2 21.0 Tidal Volume PEEP Sodium 139.0 Potassium Chloride 104.0 Carbon Dioxide Anion Gap BUN Creatinine Est GFR ( Amer) Est GFR (Non-Af Amer) POC Glucose (mg/dL) Random Glucose Calcium Phosphorus Magnesium Total Bilirubin AST ALT Alkaline Phosphatase Troponin I 1.6500 H* NT-Pro-B Natriuret Pep Total Protein Albumin Globulin Albumin/Globulin Ratio Triglycerides 58 Cholesterol 80 LDL Cholesterol Direct 42 HDL Cholesterol 24 L Free T4 TSH 3rd Generation 1.74 Arterial Blood Potassium Venous Blood Potassium 4.1 Urine Color Urine Clarity Urine pH Ur Specific [place] Urine Protein Urine Glucose (UA) Urine Ketones Urine Blood Urine Nitrate Urine Bilirubin Urine Urobilinogen Ur Leukocyte Esterase Urine WBC (Auto) Urine RBC (Auto) Ur Squamous Epith Cells Urine Bacteria Influenza Typ A,B (EIA) Negative for flu a/b Ur L.pneumophila Ag 03/14/18 03/14/18 03/14/18 18:09 18:09 Unknown WBC RBC Hgb Hct MCV MCH MCHC RDW Plt Count MPV Neut % (Auto) Lymph % (Auto) [place] % (Auto) Eos % (Auto) Baso % (Auto) Neut # (Auto) Lymph # (Auto) [place] # (Auto) Eos # (Auto) Baso # (Auto) Neutrophils % (Manual) Band Neutrophils % Lymphocytes % (Manual) Monocytes % (Manual) Platelet Estimate Hypochromasia (manual) Anisocytosis (manual) Ovalocytes PT INR APTT Puncture Site pCO2 pO2 HCO3 ABG pH ABG Total CO2 ABG O2 Saturation ABG Base Excess Joseph Test ABG Potassium VBG pH VBG pCO2 VBG HCO3 VBG Total CO2 VBG O2 Sat (Calc) VBG Base Excess VBG Potassium A-a O2 Difference Respiratory Index Glucose Lactate Vent Mode Mechanical Rate FiO2 Tidal Volume PEEP Sodium Potassium Chloride Carbon Dioxide Anion Gap BUN Creatinine Est GFR ( Amer) Est GFR (Non-Af Amer) POC Glucose (mg/dL) Random Glucose Calcium Phosphorus Magnesium Total Bilirubin AST ALT Alkaline Phosphatase Troponin I 1.6500 H* NT-Pro-B Natriuret Pep Total Protein Albumin Globulin Albumin/Globulin Ratio Triglycerides Cholesterol LDL Cholesterol Direct HDL Cholesterol Free T4 2.12 TSH 3rd Generation Arterial Blood Potassium Venous Blood Potassium Urine Color Urine Clarity Urine pH Ur Specific [place] Urine Protein Urine Glucose (UA) Urine Ketones Urine Blood Urine Nitrate Urine Bilirubin Urine Urobilinogen Ur Leukocyte Esterase Urine WBC (Auto) Urine RBC (Auto) Ur Squamous Epith Cells Urine Bacteria Influenza Typ A,B (EIA) Ur L.pneumophila Ag Negative
--- NOTE | 2018-03-14 22:55 | CP.PCM.CON ---
History of Present Illness - History of Present Illness History of Present Illness: Called to see a code stroke in [facility] ER with the following History: PER CHART as patient cannot give history: 73 y/o male, w/PMhx of pneumonia, CHF, [place], and sepsis, brought in by ambulance from [facility] for evaluation of altered mental status and oxygen desaturation. As per EMS ,the nurses at the long-term state that he was not behaving his normal self. Last seen normal last night by Corwin RN. He was recently diagnosed with UTI and treated with Augmentin. Pt is full code. Of note, HPI is limited because of patient's clinical condition. assisted was called and it was not clear when he became unresponsive, as he was seen well last night. Patient was not considered a TPA candidate as the time of onset was not clearly known. At the time of examination, 5 minutes after code stroke was activated, he was intubated and not responsive. NIHSS: 31. PMH/PSH: as above FH/SH: as above. All: nkda. On exam: obtunded not arouseable. Pupils 4mm right, and 3mm left, reacting sluggishly. no dolls eyes, no corneals, weak gag. He is posturing with no verbal output, no ability to follow commands. +2 dtr ul and ll bl. Toes upgoing bilaterally. 2mg IV ativan, 1000 mg IV depakote, and 1000 mg IV keppra was given, as status epilepticus was presumed to be comorbidity. CT scan head showed evolving large left MCA infarct, as per Dr. Dumont. Past Patient History - Infectious Disease Hx of Infectious Diseases: None - Tetanus Immunizations Tetanus Immunization: Unknown - Past Medical History & Family History Past Medical History?: Yes - Past Social History Smoking Status: Never Smoked - CARDIAC Hx Congestive Heart Failure: Yes Hx Hypercholesterolemia: Yes Hx Hypertension: Yes - PULMONARY Hx Asthma: Yes Hx Chronic Obstructive Pulmonary Disease (COPD): Yes Hx Pneumonia: Yes - HEENT Hx HEENT Problems: Yes Hx Cataracts: Yes Other/Comment: hard of hearing - RENAL Hx Chronic Kidney Disease: Yes (renal insufficiency) - PSYCHIATRIC Hx Anxiety: Yes Hx Bipolar Disorder: Yes Hx Depression: Yes Hx Schizophrenia: Yes Hx Substance Use: No - SURGICAL HISTORY Hx Tonsillectomy: Yes - ANESTHESIA Hx Anesthesia: Yes Hx Anesthesia Reactions: No Hx Malignant Hyperthermia: No Meds Allergies/Adverse Reactions: Allergies Allergy/AdvReac Type Severity Reaction Status Date / Time No Known Allergies Allergy Verified 03/14/18 09:01 - Medications Medications: Current Medications Aspirin (Aspirin Chewable) 81 mg PO DAILY GHANSHYAM Levetiracetam 1,000 mg/ (Dextrose) 110 mls @ 420 mls/hr IVPB Q12H GHANSHYAM Last Admin: 03/14/18 11:15 Dose: 420 mls/hr Vancomycin/Sodium Chloride (Vancomycin 1 Gm/Ns 200 Ml) 1 gm in 200 mls @ 133.333 mls/hr IVPB Q12H GHANSHYAM PRN Reason: Protocol Stop: 03/19/18 16:01 Last Admin: 03/14/18 15:45 Dose: 133.333 mls/hr Fentanyl Citrate 2,500 mcg/ (Sodium Chloride) 250 mls @ 12.97 mls/hr IV .[id number] GHANSHYAM; 2 MCG/KG/HR PRN Reason: Protocol Last Admin: 03/14/18 12:10 Dose: 1 mcg/kg/hr, 6.48 mls/hr Sodium Chloride (Sodium Chloride 0.9%) 1,000 mls @ 125 mls/hr IV .Q8H GHANSHYAM Last Admin: 03/14/18 15:45 Dose: 125 mls/hr Meropenem 1 gm/ Sodium (Chloride) 100 mls @ 100 mls/hr IVPB Q8H GHANSHYAM PRN Reason: Protocol Last Admin: 03/14/18 17:57 Dose: 100 mls/hr Pantoprazole Sodium (Protonix Inj) 40 mg IVP DAILY GHANSHYAM Rosuvastatin Calcium (Crestor) 10 mg PO HS GHANSHYAM Tamsulosin HCl (Flomax) 0.4 mg PO DAILY [facility] Results - Vital Signs Recent Vital Signs: Last Vital Signs Temp 98.2 F 03/14/18 20:00 Pulse 88 03/14/18 22:05 Resp 13 03/14/18 22:05 BP 86/53 L 03/14/18 22:05 Pulse Ox 100 03/14/18 22:05 - Labs Result Diagrams: 03/14/18 09:30 03/14/18 09:30 Labs: Laboratory Results - last 24 hr 03/14/18 03/14/18 03/14/18 08:41 09:30 09:30 WBC 10.2 RBC 3.74 L Hgb 10.5 L Hct 31.2 L MCV 83.5 D MCH 28.1 MCHC 33.7 RDW 15.8 H Plt Count 168 MPV 10.4 Neut % (Auto) 85.6 H Lymph % (Auto) 6.5 L [place] % (Auto) 7.5 Eos % (Auto) 0.1 Baso % (Auto) 0.3 Neut # (Auto) 8.7 H Lymph # (Auto) 0.7 L [place] # (Auto) 0.8 Eos # (Auto) 0.0 Baso # (Auto) 0.0 Neutrophils % (Manual) 86 H Band Neutrophils % 1 Lymphocytes % (Manual) 5 L Monocytes % (Manual) 8 Platelet Estimate Normal Hypochromasia (manual) Slight Anisocytosis (manual) Slight Ovalocytes Slight PT 17.4 H INR 1.6 APTT 31 Puncture Site pCO2 pO2 HCO3 ABG pH ABG Total CO2 ABG O2 Saturation ABG Base Excess Joseph Test ABG Potassium VBG pH VBG pCO2 VBG HCO3 VBG Total CO2 VBG O2 Sat (Calc) VBG Base Excess VBG Potassium A-a O2 Difference Respiratory Index Glucose Lactate Vent Mode Mechanical Rate FiO2 Tidal Volume PEEP Sodium Potassium Chloride Carbon Dioxide Anion Gap BUN Creatinine Est GFR ( Amer) Est GFR (Non-Af Amer) POC Glucose (mg/dL) 100 Random Glucose Calcium Phosphorus Magnesium Total Bilirubin AST ALT Alkaline Phosphatase Troponin I NT-Pro-B Natriuret Pep Total Protein Albumin Globulin Albumin/Globulin Ratio Triglycerides Cholesterol LDL Cholesterol Direct HDL Cholesterol Free T4 TSH 3rd Generation Arterial Blood Potassium Venous Blood Potassium Urine Color Urine Clarity Urine pH Ur Specific [place] Urine Protein Urine Glucose (UA) Urine Ketones Urine Blood Urine Nitrate Urine Bilirubin Urine Urobilinogen Ur Leukocyte Esterase Urine WBC (Auto) Urine RBC (Auto) Ur Squamous Epith Cells Urine Bacteria Influenza Typ A,B (EIA) Ur L.pneumophila Ag 03/14/18 03/14/18 03/14/18 09:30 09:33 09:53 WBC RBC Hgb Hct MCV MCH MCHC RDW Plt Count MPV Neut % (Auto) Lymph % (Auto) [place] % (Auto) Eos % (Auto) Baso % (Auto) Neut # (Auto) Lymph # (Auto) [place] # (Auto) Eos # (Auto) Baso # (Auto) Neutrophils % (Manual) Band Neutrophils % Lymphocytes % (Manual) Monocytes % (Manual) Platelet Estimate Hypochromasia (manual) Anisocytosis (manual) Ovalocytes PT INR APTT Puncture Site Rf pCO2 43 pO2 256 H HCO3 22.5 ABG pH 7.33 L ABG Total CO2 24.0 ABG O2 Saturation 100.3 H ABG Base Excess -3.2 L Joseph Test Na ABG Potassium 3.4 L VBG pH VBG pCO2 VBG HCO3 VBG Total CO2 VBG O2 Sat (Calc) VBG Base Excess VBG Potassium A-a O2 Difference 403.0 Respiratory Index 1.6 Glucose 99 Lactate 1.9 Vent Mode Prvc Mechanical Rate 14 FiO2 100.0 Tidal Volume 500 PEEP 5 Sodium 142 141.0 Potassium 3.6 Chloride 106 112.0 H Carbon Dioxide 26 Anion Gap 14 BUN 21 H Creatinine 1.0 Est GFR ( Amer) > 60 Est GFR (Non-Af Amer) > 60 POC Glucose (mg/dL) Random Glucose 106 Calcium 8.7 Phosphorus 2.5 Magnesium 1.7 Total Bilirubin 0.7 AST 28 ALT 17 L D Alkaline Phosphatase 51 Troponin I 1.3100 H* NT-Pro-B Natriuret Pep 7420 H Total Protein 6.3 Albumin 2.9 L Globulin 3.4 Albumin/Globulin Ratio 0.8 L Triglycerides Cholesterol LDL Cholesterol Direct HDL Cholesterol Free T4 TSH 3rd Generation Arterial Blood Potassium 3.4 L Venous Blood Potassium Urine Color Yellow Urine Clarity Hazy Urine pH 5.0 Ur Specific [place] 1.015 Urine Protein 1+ H Urine Glucose (UA) Normal Urine Ketones Trace Urine Blood 3+ H Urine Nitrate Negative Urine Bilirubin Negative Urine Urobilinogen Normal Ur Leukocyte Esterase 3+ H Urine WBC (Auto) 291 H Urine RBC (Auto) 275 H Ur Squamous Epith Cells 22 H Urine Bacteria Few H Influenza Typ A,B (EIA) Ur L.pneumophila Ag 03/14/18 03/14/18 03/14/18 15:45 17:23 18:09 WBC RBC Hgb Hct MCV MCH MCHC RDW Plt Count MPV Neut % (Auto) Lymph % (Auto) [place] % (Auto) Eos % (Auto) Baso % (Auto) Neut # (Auto) Lymph # (Auto) [place] # (Auto) Eos # (Auto) Baso # (Auto) Neutrophils % (Manual) Band Neutrophils % Lymphocytes % (Manual) Monocytes % (Manual) Platelet Estimate Hypochromasia (manual) Anisocytosis (manual) Ovalocytes PT INR APTT Puncture Site pCO2 pO2 62 H HCO3 ABG pH ABG Total CO2 ABG O2 Saturation ABG Base Excess Joseph Test ABG Potassium VBG pH 7.32 VBG pCO2 47 VBG HCO3 23.0 VBG Total CO2 25.6 VBG O2 Sat (Calc) 93.9 H VBG Base Excess -2.2 L VBG Potassium 4.1 A-a O2 Difference Respiratory Index Glucose 85 Lactate 2.5 H Vent Mode Mechanical Rate FiO2 21.0 Tidal Volume PEEP Sodium 139.0 Potassium Chloride 104.0 Carbon Dioxide Anion Gap BUN Creatinine Est GFR ( Amer) Est GFR (Non-Af Amer) POC Glucose (mg/dL) Random Glucose Calcium Phosphorus Magnesium Total Bilirubin AST ALT Alkaline Phosphatase Troponin I 1.6500 H* NT-Pro-B Natriuret Pep Total Protein Albumin Globulin Albumin/Globulin Ratio Triglycerides 58 Cholesterol 80 LDL Cholesterol Direct 42 HDL Cholesterol 24 L Free T4 TSH 3rd Generation 1.74 Arterial Blood Potassium Venous Blood Potassium 4.1 Urine Color Urine Clarity Urine pH Ur Specific [place] Urine Protein Urine Glucose (UA) Urine Ketones Urine Blood Urine Nitrate Urine Bilirubin Urine Urobilinogen Ur Leukocyte Esterase Urine WBC (Auto) Urine RBC (Auto) Ur Squamous Epith Cells Urine Bacteria Influenza Typ A,B (EIA) Negative for flu a/b Ur L.pneumophila Ag 03/14/18 03/14/18 03/14/18 18:09 18:09 Unknown WBC RBC Hgb Hct MCV MCH MCHC RDW Plt Count MPV Neut % (Auto) Lymph % (Auto) [place] % (Auto) Eos % (Auto) Baso % (Auto) Neut # (Auto) Lymph # (Auto) [place] # (Auto) Eos # (Auto) Baso # (Auto) Neutrophils % (Manual) Band Neutrophils % Lymphocytes % (Manual) Monocytes % (Manual) Platelet Estimate Hypochromasia (manual) Anisocytosis (manual) Ovalocytes PT INR APTT Puncture Site pCO2 pO2 HCO3 ABG pH ABG Total CO2 ABG O2 Saturation ABG Base Excess Joseph Test ABG Potassium VBG pH VBG pCO2 VBG HCO3 VBG Total CO2 VBG O2 Sat (Calc) VBG Base Excess VBG Potassium A-a O2 Difference Respiratory Index Glucose Lactate Vent Mode Mechanical Rate FiO2 Tidal Volume PEEP Sodium Potassium Chloride Carbon Dioxide Anion Gap BUN Creatinine Est GFR ( Amer) Est GFR (Non-Af Amer) POC Glucose (mg/dL) Random Glucose Calcium Phosphorus Magnesium Total Bilirubin AST ALT Alkaline Phosphatase Troponin I 1.6500 H* NT-Pro-B Natriuret Pep Total Protein Albumin Globulin Albumin/Globulin Ratio Triglycerides Cholesterol LDL Cholesterol Direct HDL Cholesterol Free T4 2.12 TSH 3rd Generation Arterial Blood Potassium Venous Blood Potassium Urine Color Urine Clarity Urine pH Ur Specific [place] Urine Protein Urine Glucose (UA) Urine Ketones Urine Blood Urine Nitrate Urine Bilirubin Urine Urobilinogen Ur Leukocyte Esterase Urine WBC (Auto) Urine RBC (Auto) Ur Squamous Epith Cells Urine Bacteria Influenza Typ A,B (EIA) Ur L.pneumophila Ag Negative - Imaging and Cardiology CT scan - head Status: Image reviewed by me, Report reviewed by me (Ct head: shows large left mca infarct several hours old. ) Assessment & Plan - Assessment and Plan (Free Text) Assessment: 73 yr old male who may be in status epilepticus, and now has received treatment. He will need ICU monitoring and Video EEG. We are trying to contact family to evaluate level of intervention. He is currently full code. We are medically managing his epilepsy and he is not a TPA candidate. Plan: 1. COntinue on 1000 mg IV bid keppra 2. Continue on 750 mg IV bid depakote. 3. EEG as soon as possible. 4. Repeat CT head in am. Thank you for consulting us, Dr. Franco Aldridge MD Neurology.
[2018-03-15] MEDS: Meropenem 1 GM in Sodium Chloride 0.9% 100 ML IVPB SCH ×3 (00:54→16:23)
[2018-03-15] MEDS: Vancomycin 1 gm/NS 200 ml 1 GM/200 ML BAG IVPB SCH ×2 (03:24→15:00)
[2018-03-15 05:37] LABS: ARTERIAL BLOOD GAS HCO3 22.2 mmol/L (21-28); ARTERIAL BLOOD GAS HEMOGLOBIN 9.5 g/dL (11.7-17.4); ARTERIAL BLOOD GAS PCO2 37 mm/Hg (35-45); ARTERIAL BLOOD GAS PH 7.37 (7.35-7.45); ARTERIAL BLOOD GAS PO2 274 mm/Hg (80-100); ARTERIAL BLOOD GAS TCO2 22.5 mmol/L (22-28)
[2018-03-15 06:24] LABS: BASO # 0.1 K/uL (0.0-0.2); BASO % 0.5 % (0.0-2.0); EOS # 0.1 K/uL (0.0-0.7); HEMOGLOBIN 9.4 g/dL (12.0-18.0); LYMPH # 0.7 K/uL (1.0-4.3); LYMPH % 6.5 % (20.0-40.0); MEAN CELL VOLUME 84.8 fL (80.0-94.0); MEAN CORPUSCULAR HEMOGLOBIN 27.2 pg (27.0-31.0); MEAN CORPUSCULAR HGB CONC 32.1 g/dL (33.0-37.0); MEAN PLATELET VOLUME 11.1 fL (7.2-11.7); MONO # 1.1 K/uL (0.0-0.8); NEUT # 9.3 K/uL (1.8-7.0); PLATELET COUNT 139 K/uL (130-400); RBC 3.45 Mil/uL (4.40-5.90); RED CELL DISTRIBUTION WIDTH 15.6 % (11.5-14.5); WHITE BLOOD COUNT 11.3 K/uL (4.8-10.8)
[2018-03-15] MEDS ORDERED: Dextrose 50% SYRINGE Inj (50 ml) IV STA (06:29)
[2018-03-15] MEDS ORDERED: Dextrose 50% SYRINGE Inj (50 ml) ONE (06:35)
[2018-03-15 06:47] LABS: ALB/GLOB RATIO 0.7 (1.0-2.1); ALBUMIN 2.3 g/dL (3.5-5.0); ALT/SGPT 23 U/L (21-72); AST/SGOT 47 U/L (17-59); BLOOD UREA NITROGEN 13 mg/dL (9-20); CALCIUM 7.9 mg/dl (8.6-10.4); GFR NON-AFRICAN AMERICAN > 60
--- NOTE | 2018-03-15 07:02 | CON ---
DATE: 03/14/2018 INFECTIOUS DISEASE CONSULT REQUESTED BY: Lazaro Perez MD and Liborio Hunter MD. HISTORY OF PRESENT ILLNESS: This patient is a 73-year-old male. He has history of hypertension, hyperlipidemia, BPH, schizophrenia, CHF, CKD, dementia. [facility]. He is intubated. He was hypoxic and he was hypotensive. I am asked to see him. He also has positive troponins and he is having a stroke at this time as seen on the CAT scan. The patient is intubated, unable to give any history. Most of the history is taken from the chart. PAST MEDICAL HISTORY: Significant for hypertension, CHF, hyperlipidemia, bipolar depression with paranoid schizophrenia, BPH, recurrent UTIs, history of urinary retention, he was seen last by Dr. Norman Chiang, dementia. PAST SURGICAL HISTORY: Tonsillectomy. He has history of anesthesia in the past. FAMILY HISTORY: His mother of some cardiac issues. Father had emphysema. SOCIAL HISTORY: Negative for smoking or drinking, or drug abuse. [facility] comes from the [facility]. MEDICATIONS IN THE [facility]: He was on aspirin, Proscar, on Remeron, Megace, Depakote, Flomax, vitamin D, metoprolol. ALLERGIES: HE IS NOT ALLERGIC TO ANY MEDICINE. REVIEW OF SYSTEMS: Unable to obtain. GENERAL: He was transferred because he was hypotensive and hypoxic. HEENT: He has problems. History of cataract and he is hard of hearing. CARDIAC HISTORY: Significant for congestive heart failure, hypercholesterolemia, hypertension. PULMONARY: He has history of asthma, history of COPD, and history of pneumonias in the past. RENAL: He has chronic renal insufficiency. PSYCH: He has history of anxiety, bipolar disorder. He has history of depression. He has history of schizophrenia. He has history of substance abuse. PHYSICAL EXAMINATION: GENERAL: He is intubated and he appears sedated. VITAL SIGNS: T-max is 98.2, pulse 87, blood pressure was low at 80/43, respirations are 13. HEENT: Head is atraumatic. Intubated, sedated. NECK: Supple. JVP is flat at this time. LUNGS: Clear. No crackles or rales heard. Decreased breath sounds. HEART: S1, S2 are regular. ABDOMEN: Soft, nontender. No guarding, no rigidity present. EXTREMITIES: Have foot protectors on. I started her on vancomycin and meropenem at this time as the urine also showed some UTI, significant pyuria, and he has history of UTIs in the past. CURRENT MEDICATIONS: Include aspirin, Keppra, vancomycin, fentanyl, sodium chloride, meropenem, pantoprazole, Crestor, and tamsulosin. LABORATORY DATA: Labs are noted. Labs show white count is 10.2, hemoglobin 10.5, hematocrit 31.2, platelet count is 168. Sodium is 142, potassium 3.6, chloride 106, BUN is 21, creatinine is 1, glucose is 106. White count is 10.2. INR is 1.6, glucose is 100. He had an ABG which is pH 7.33, CO2 is 24, oxygen saturation is 100, pO2 was 256, CO2 of 43, and lactate level is 1.9. Troponin was 1.31. UA showed wbc's 291, 3+ leukocytes, rbc's 275, and bacteria few. He does have pyuria. He had a chest x-ray done. Head CT was done. Head and neck CTA, which shows significant narrowing of the right vertebral artery at several levels due to significant severe hypertrophic facet arthropathy. 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 Right-sided cerebral circulation fed by left A1 segment via the anterior communicating artery, communicating artery from the left side. There is also a paucity of distal branch vessel in the left sylvian fissure consistent with a branch infarct, changes involving the distal left middle cerebral artery territory. At this time, the patient does have acute infarct, acute respiratory failure. He is hypotensive and has pyuria, and has positive troponins, acute myocardial infarction. Blood cultures have been ordered. The chest x-ray showed bilateral opacities, so we are covering for pneumonia and for urinary tract infection and we will follow. He has patchy bilateral airspace opacities. Demonstrated continued decrease in extent of new patchy opacity in left lung base, and tiny left pleural effusion, so we are covering for pneumonia also at this point. Prognosis remains guarded. We will follow. Sadhna Tomás, MD [facility] # [phone]
[2018-03-15] MEDS: Sodium Chloride 0.9% 1,000 ML IV SCH ×2 (07:15→16:53)
--- NOTE | 2018-03-15 07:49 | RAD ---
Date of service: 03/15/2018 HISTORY: intubated COMPARISON: Portable chest 03/14/2018. FINDINGS: LUNGS: Endotracheal tube is unchanged in position with nasogastric tube now placed with the tip turning at the left upper quadrant abdomen. Limited left basilar atelectasis favored over infiltrate. No right-sided airspace disease. PLEURA: No right pleural effusion. Stable minimal left pleural effusion evident. Skin folds simulate pneumothoraces at the right hemithorax. No pneumothorax bilaterally. CARDIOVASCULAR: Normal. OSSEOUS STRUCTURES: No significant abnormalities. VISUALIZED UPPER ABDOMEN: Normal. OTHER FINDINGS: None. IMPRESSION: Interval nasogastric placement as discussed above, terminating at left upper quadrant abdomen. Stable left basilar patchy atelectasis or infiltrate with minimal left pleural effusion reiterated.
--- NOTE | 2018-03-15 08:15 | HP ---
CHIEF COMPLAINT: Altered mental status. HISTORY OF PRESENT ILLNESS: This is a 73-year-old white male well know to me with history of obstructive uropathy due to benign prostatic hyperplasia, neurogenic bladder, coronary artery disease, status post AR, on medical management, hypertension, hyperlipidemia. The patient is a resident of [facility], and his condition has been declining recently. He has history of cystoscopy, and later on, septicemia. The patient generally is in the wheelchair. He is able to talk. He is able to explain his problems and makes his needs known, and he was last seen in his usual status last night. This morning, the patient was acutely altered. He was hypoxic and 911 was called in. The patient was placed on oxygen and the patient was stabilized, assessed, evaluated, and referred to emergency room. Recently, he was diagnosed with urinary tract infection, and his infection was sensitive to Augmentin. The patient does not have any known living relative, and patient is full code. No further details are obtained as patient is intubated. Currently, he is intubated, he is hypotensive. He is on mechanical ventilator. He looks sick, pale, and . In the ER, the patient's vital were blood pressure 106/52, pulse 99, respiratory rate 18, temperature 98.4. The patient was on ventilator, IV fluids, fluid boluses, and he was hospitalized. PAST MEDICAL HISTORY: Coronary artery disease, hypertension, obstructive uropathy. 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 Currently, he lives in [facility], and he has been in [facility] for long time. CURRENT MEDICATIONS: At [facility] are multivitamin, Flomax, Remeron, Toprol, Megace, Lasix, Depakote, vitamin D, bacitracin ointment, aspirin, Augmentin, and ammonium lactate. PHYSICAL EXAMINATION: GENERAL: An elderly male who is intubated orally, in no acute distress. He is unresponsive. VITAL SIGNS: BP 86/53, pulse 96, respiratory rate 20, temperature 97. SKIN: Dry. Poor turgor. No bruises. No purpura. HEENT: Atraumatic, normocephalic. Positive pallor. Negative jaundice. Orally intubated. Edentulous oral cavity. NECK: Supple. Flat neck vein. No JVD. No lymph node. No thyromegaly. No carotid bruit. CHEST: Chest wall bilaterally symmetrical expansion. LUNGS: Bilaterally clear. Bilateral transmitted breath sounds. Few rhonchi. CVS: S1 and S2 regular. ABDOMEN: Soft, nontender. Bowel sound are positive. RECTAL AND PELVIC: Deferred because of the patient's position. 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 ASSESSMENT: 1. Acute altered mental status, rule out cerebrovascular accident, rule out toxic metabolic encephalopathy, rule out seizure. 2. Hypertension. 3. Coronary artery disease, rule out acute myocardial infraction. 4. Obstructive uropathy with benign prostatic hyperplasia. PLAN: Admit. Detailed order written. Seen and examined. Liborio Hunter MD
[2018-03-15 08:50] LABS: ANISOCYTOSIS SLIGHT; BANDS 1 % (0-2); LYMPHOCYTE 6 % (20-40); MONOCYTE 11 % (0-10); NEUTROPHIL 82 % (50-75); PLATELET ESTIMATE NORMAL (NORMAL); TOTAL CELLS COUNTED 100
[2018-03-15 08:51] LABS: HYPOCHROMIC SLIGHT
[2018-03-15] MEDS: Valproic Acid 250 mg/5 ml UD Cup PO SCH ×2 (09:36→17:32)
[2018-03-15] MEDS ORDERED: levETIRAcetam 1,000 MG in Sodium Chloride 0.9% 100 ML IVPB SCH (10:00)
--- NOTE | 2018-03-15 10:29 | CP.CCUPN ---
<Nitin Cunha - Last Filed: 03/15/18 10:38> CCU Subjective - Physician Review Subjective (Free Text): Critical Care Progress Note: Pt seen and examined at bedside. No acute events overnight. Patient is currently intubated and sedated on fentanyl ggt. No pressors. 12 Point ROS Limited 2/2 intubation. CCU Objective - Vital Signs / Intake & Output Vital Signs (Last 4 hours): Vital Signs Pulse Resp BP Pulse Ox 03/15/18 10:03 96 H 11 L 85/47 L 100 03/15/18 10:00 106 H 8 L 100 03/15/18 09:30 92 H 14 100 03/15/18 09:03 92 H 14 88/46 L 100 03/15/18 09:00 91 H 14 100 03/15/18 08:30 91 H 14 99 03/15/18 08:03 89 12 89/46 L 99 03/15/18 08:00 89 14 99 03/15/18 07:30 98 H 12 100 03/15/18 07:03 97 H 13 94/58 L 99 03/15/18 07:00 97 H 13 99 03/15/18 06:30 95 H 14 100 Intake and Output (Last 8hrs): Intake & Output 03/14/18 03/15/18 03/15/18 22:59 06:59 14:59 Intake Total 1000 1275 Output Total 355 365 Balance 645 910 Weight 130 lb Intake: Intake, IV Amount 1000 1275 Left Wrist 1000 1275 Oral 0 0 Output: Urine 355 365 Urethral (Hawk) 355 365 Other: # Bowel Movements 0 - Physical Exam Head: Positive for: Atraumatic, Normocephalic Pupils: Positive for: PERRL Mouth: Positive for: Moist Mucous Membranes Respiratory/Chest: Positive for: Clear to Auscultation. Negative for: Wheezes, Rales Cardiovascular: Positive for: Regular Rate and Rhythm, Normal S1, S2 Abdomen: Positive for: Normal Bowel Sounds. Negative for: Tenderness, Distention Upper Extremity: Negative for: Cyanosis, Edema Lower Extremity: Negative for: Edema, CALF TENDERNESS Neurological: Positive for: CN II-XII Intact, Other (On fentanyl, Withdraws to pain on the L side ext) Skin: Positive for: Warm, Dry Psychiatric: Negative for: Alert - Medications Active Medications: Active Medications Generic Name Dose Route Start Last Admin Trade Name Sina PRN Reason Stop Dose Admin Aspirin 81 mg 03/15/18 10:00 03/15/18 09:36 Aspirin Chewable PO 81 mg DAILY GHANSHYAM Administration Levetiracetam 1,000 mg/ 110 mls @ 420 mls/hr 03/14/18 11:00 03/14/18 23:40 Dextrose IVPB 420 mls/hr Q12H GHANSHYAM Administration Vancomycin/Sodium Chloride 1 gm in 200 mls @ 133.333 mls/hr 03/14/18 16:00 03:24 Vancomycin 1 Gm/Ns 200 Ml IVPB 03/19/18 16:01 133.333 mls/hr Q12H GHANSHYAM Administration Protocol Fentanyl Citrate 2,500 mcg/ 250 mls @ 12.97 mls/hr 03/14/18 15:15 03/14/18 12 :10 Sodium Chloride IV 1 mcg/kg/hr .[id number] GHANSHYAM 6.48 mls/hr Protocol Administration 2 MCG/KG/HR Sodium Chloride 1,000 mls @ 125 mls/hr 03/14/18 15:15 03/15/18 07:15 Sodium Chloride 0.9% IV Not Given .Q8H GHANSHYAM Meropenem 1 gm/ Sodium 100 mls @ 100 mls/hr 03/14/18 17:00 03/15/18 09:37 Chloride IVPB 100 mls/hr Q8H GHANSHYAM Administration Protocol Pantoprazole Sodium 40 mg 03/15/18 10:00 03/15/18 09:36 Protonix Inj IVP 40 mg DAILY GHANSHYAM Administration Rosuvastatin Calcium 10 mg 03/14/18 22:00 03/14/18 23:40 Crestor PO 10 mg HS GHANSHYAM Administration Tamsulosin HCl 0.4 mg 03/15/18 10:00 03/15/18 09:36 Flomax PO 0.4 mg DAILY GHANSHYAM Administration Valproate Sodium 500 mg 03/15/18 10:00 03/15/18 09:36 Depakene Oral Soln PO 500 mg BID GHANSHYAM Administration - Patient Studies Lab Studies: Microbiology Studies 03/14/18 09:35 Blood Culture - Preliminary Blood NO GROWTH AFTER 24 HOURS 03/14/18 09:00 Blood Culture - Preliminary Blood NO GROWTH AFTER 24 HOURS 03/14/18 17:23 Gram Stain - Final Sputum Lab Studies 03/15/18 03/15/18 03/15/18 Range/Units 06:48 06:25 06:23 WBC (4.8-10.8) K/uL RBC (4.40-5.90) Mil/uL Hgb (12.0-18.0) g/dL Hct (35.0-51.0) % MCV (80.0-94.0) fL MCH (27.0-31.0) pg MCHC (33.0-37.0) g/dL RDW (11.5-14.5) % Plt Count (130-400) K/uL MPV (7.2-11.7) fL Neut % (Auto) (50.0-75.0) % Lymph % (Auto) (20.0-40.0) % Blount % (Auto) (0.0-10.0) % Eos % (Auto) (0.0-4.0) % Baso % (Auto) (0.0-2.0) % Neut # (Auto) (1.8-7.0) K/uL Lymph # (Auto) (1.0-4.3) K/uL Blount # (Auto) (0.0-0.8) K/uL Eos # (Auto) (0.0-0.7) K/uL Baso # (Auto) (0.0-0.2) K/uL Neutrophils % (Manual) (50-75) % Band Neutrophils % (0-2) % Lymphocytes % (Manual) (20-40) % Monocytes % (Manual) (0-10) % Platelet Estimate (NORMAL) Hypochromasia (manual) Anisocytosis (manual) Puncture Site pCO2 (35-45) mm/Hg pO2 (30-55) mm/Hg HCO3 (21-28) mmol/L ABG pH (7.35-7.45) ABG Total CO2 (22-28) mmol/L ABG O2 Saturation (95-98) % ABG Base Excess (-2.0-3.0) mmol/L ABG Hemoglobin (11.7-17.4) g/dL ABG Carboxyhemoglobin (0.5-1.5) % POC ABG HHb (Measured) (0.0-5.0) % ABG Methemoglobin (0.0-3.0) % Joseph Test VBG pH (7.32-7.43) VBG pCO2 (40-60) mmHg VBG HCO3 mmol/L VBG Total CO2 (22-28) mmol/L VBG O2 Sat (Calc) (40-65) % VBG Base Excess (0.0-2.0) mmol/L VBG Potassium (3.6-5.2) mmol/L A-a O2 Difference mm/Hg Respiratory Index Hgb O2 Saturation (95.0-98.0) % Sodium (132-148) mmol/l Chloride (98-107) mmol/L Glucose (75-110) mg/dl Lactate (0.7-2.1) mmol/L Vent Mode Mechanical Rate FiO2 % Tidal Volume PEEP Potassium (3.6-5.2) mmol/L Carbon Dioxide (22-30) mmol/L Anion Gap (10-20) BUN (9-20) mg/dL Creatinine (0.8-1.5) mg/dL Est GFR ( Amer) Est GFR (Non-Af Amer) POC Glucose (mg/dL) 151 H 49 L 48 L (65-110) mg/dL Random Glucose (75-110) mg/dL Calcium (8.6-10.4) mg/dl Phosphorus (2.5-4.5) mg/dL Magnesium (1.6-2.3) mg/dL Total Bilirubin (0.2-1.3) mg/dL AST (17-59) U/L ALT (21-72) U/L Alkaline Phosphatase (38-126) U/L Troponin I (0.00-0.120) ng/mL NT-Pro-B Natriuret Pep (0-900) pg/mL Total Protein (6.3-8.3) g/dL Albumin (3.5-5.0) g/dL Globulin (2.2-3.9) gm/dL Albumin/Globulin Ratio (1.0-2.1) Triglycerides (0-149) mg/dL Cholesterol (0-199) mg/dL LDL Cholesterol Direct (0-129) mg/dL HDL Cholesterol (30-70) mg/dL Free T4 (0.78-2.19) ng/dL TSH 3rd Generation (0.46-4.68) mIU/L Venous Blood Potassium (3.6-5.2) mmol/L Influenza Typ A,B (EIA) (NEGATIVE) Ur L.pneumophila Ag (NEGATIVE) 03/15/18 03/15/18 03/15/18 Range/Units 06:18 06:16 05:28 WBC 11.3 H (4.8-10.8) K/uL RBC 3.45 L (4.40-5.90) Mil/uL Hgb 9.4 L (12.0-18.0) g/dL Hct 29.3 L (35.0-51.0) % MCV 84.8 (80.0-94.0) fL MCH 27.2 (27.0-31.0) pg MCHC 32.1 L (33.0-37.0) g/dL RDW 15.6 H (11.5-14.5) % Plt Count 139 (130-400) K/uL MPV 11.1 (7.2-11.7) fL Neut % (Auto) 82.0 H (50.0-75.0) % Lymph % (Auto) 6.5 L (20.0-40.0) % Blount % (Auto) 10.0 (0.0-10.0) % Eos % (Auto) 1.0 (0.0-4.0) % Baso % (Auto) 0.5 (0.0-2.0) % Neut # (Auto) 9.3 H (1.8-7.0) K/uL Lymph # (Auto) 0.7 L (1.0-4.3) K/uL Blount # (Auto) 1.1 H (0.0-0.8) K/uL Eos # (Auto) 0.1 (0.0-0.7) K/uL Baso # (Auto) 0.1 (0.0-0.2) K/uL Neutrophils % (Manual) 82 H (50-75) % Band Neutrophils % 1 (0-2) % Lymphocytes % (Manual) 6 L (20-40) % Monocytes % (Manual) 11 H (0-10) % Platelet Estimate Normal (NORMAL) Hypochromasia (manual) Slight Anisocytosis (manual) Slight Puncture Site Lbra pCO2 37 (35-45) mm/Hg pO2 274 H (30-55) mm/Hg HCO3 22.2 (21-28) mmol/L ABG pH 7.37 (7.35-7.45) ABG Total CO2 22.5 (22-28) mmol/L ABG O2 Saturation 100.0 H (95-98) % ABG Base Excess -3.5 L (-2.0-3.0) mmol/L ABG Hemoglobin 9.5 L (11.7-17.4) g/dL ABG Carboxyhemoglobin 1.3 (0.5-1.5) % POC ABG HHb (Measured) 0.0 (0.0-5.0) % ABG Methemoglobin 1.3 (0.0-3.0) % Joseph Test Na VBG pH (7.32-7.43) VBG pCO2 (40-60) mmHg VBG HCO3 mmol/L VBG Total CO2 (22-28) mmol/L VBG O2 Sat (Calc) (40-65) % VBG Base Excess (0.0-2.0) mmol/L VBG Potassium (3.6-5.2) mmol/L A-a O2 Difference 179.0 mm/Hg Respiratory Index 0.7 Hgb O2 Saturation 97.5 (95.0-98.0) % Sodium 144 (132-148) mmol/l Chloride 114 H (98-107) mmol/L Glucose (75-110) mg/dl Lactate (0.7-2.1) mmol/L Vent Mode Prvc Mechanical Rate 14 FiO2 70.0 % Tidal Volume 500 PEEP 5 Potassium 3.5 L (3.6-5.2) mmol/L Carbon Dioxide 21 L (22-30) mmol/L Anion Gap 12 (10-20) BUN 13 (9-20) mg/dL Creatinine 0.7 L (0.8-1.5) mg/dL Est GFR ( Amer) > 60 Est GFR (Non-Af Amer) > 60 POC Glucose (mg/dL) (65-110) mg/dL Random Glucose 58 L (75-110) mg/dL Calcium 7.9 L (8.6-10.4) mg/dl Phosphorus 2.6 (2.5-4.5) mg/dL Magnesium 1.6 (1.6-2.3) mg/dL Total Bilirubin 0.5 (0.2-1.3) mg/dL AST 47 (17-59) U/L ALT 23 (21-72) U/L Alkaline Phosphatase 42 (38-126) U/L Troponin I (0.00-0.120) ng/mL NT-Pro-B Natriuret Pep (0-900) pg/mL Total Protein 5.4 L (6.3-8.3) g/dL Albumin 2.3 L D (3.5-5.0) g/dL Globulin 3.1 (2.2-3.9) gm/dL Albumin/Globulin Ratio 0.7 L (1.0-2.1) Triglycerides (0-149) mg/dL Cholesterol (0-199) mg/dL LDL Cholesterol Direct (0-129) mg/dL HDL Cholesterol (30-70) mg/dL Free T4 (0.78-2.19) ng/dL TSH 3rd Generation (0.46-4.68) mIU/L Venous Blood Potassium (3.6-5.2) mmol/L Influenza Typ A,B (EIA) (NEGATIVE) Ur L.pneumophila Ag (NEGATIVE) 03/15/18 03/15/18 03/14/18 Range/Units 00:09 00:07 Unknown WBC (4.8-10.8) K/uL RBC (4.40-5.90) Mil/uL Hgb (12.0-18.0) g/dL Hct (35.0-51.0) % MCV (80.0-94.0) fL MCH (27.0-31.0) pg MCHC (33.0-37.0) g/dL RDW (11.5-14.5) % Plt Count (130-400) K/uL MPV (7.2-11.7) fL Neut % (Auto) (50.0-75.0) % Lymph % (Auto) (20.0-40.0) % Blount % (Auto) (0.0-10.0) % Eos % (Auto) (0.0-4.0) % Baso % (Auto) (0.0-2.0) % Neut # (Auto) (1.8-7.0) K/uL Lymph # (Auto) (1.0-4.3) K/uL Blount # (Auto) (0.0-0.8) K/uL Eos # (Auto) (0.0-0.7) K/uL Baso # (Auto) (0.0-0.2) K/uL Neutrophils % (Manual) (50-75) % Band Neutrophils % (0-2) % Lymphocytes % (Manual) (20-40) % Monocytes % (Manual) (0-10) % Platelet Estimate (NORMAL) Hypochromasia (manual) Anisocytosis (manual) Puncture Site pCO2 (35-45) mm/Hg pO2 (30-55) mm/Hg HCO3 (21-28) mmol/L ABG pH (7.35-7.45) ABG Total CO2 (22-28) mmol/L ABG O2 Saturation (95-98) % ABG Base Excess (-2.0-3.0) mmol/L ABG Hemoglobin (11.7-17.4) g/dL ABG Carboxyhemoglobin (0.5-1.5) % POC ABG HHb (Measured) (0.0-5.0) % ABG Methemoglobin (0.0-3.0) % Joseph Test VBG pH (7.32-7.43) VBG pCO2 (40-60) mmHg VBG HCO3 mmol/L VBG Total CO2 (22-28) mmol/L VBG O2 Sat (Calc) (40-65) % VBG Base Excess (0.0-2.0) mmol/L VBG Potassium (3.6-5.2) mmol/L A-a O2 Difference mm/Hg Respiratory Index Hgb O2 Saturation (95.0-98.0) % Sodium (132-148) mmol/l Chloride (98-107) mmol/L Glucose (75-110) mg/dl Lactate (0.7-2.1) mmol/L Vent Mode Mechanical Rate FiO2 % Tidal Volume PEEP Potassium (3.6-5.2) mmol/L Carbon Dioxide (22-30) mmol/L Anion Gap (10-20) BUN (9-20) mg/dL Creatinine (0.8-1.5) mg/dL Est GFR ( Amer) Est GFR (Non-Af Amer) POC Glucose (mg/dL) 77 66 (65-110) mg/dL Random Glucose (75-110) mg/dL Calcium (8.6-10.4) mg/dl Phosphorus (2.5-4.5) mg/dL Magnesium (1.6-2.3) mg/dL Total Bilirubin (0.2-1.3) mg/dL AST (17-59) U/L ALT (21-72) U/L Alkaline Phosphatase (38-126) U/L Troponin I (0.00-0.120) ng/mL NT-Pro-B Natriuret Pep (0-900) pg/mL Total Protein (6.3-8.3) g/dL Albumin (3.5-5.0) g/dL Globulin (2.2-3.9) gm/dL Albumin/Globulin Ratio (1.0-2.1) Triglycerides (0-149) mg/dL Cholesterol (0-199) mg/dL LDL Cholesterol Direct (0-129) mg/dL HDL Cholesterol (30-70) mg/dL Free T4 (0.78-2.19) ng/dL TSH 3rd Generation (0.46-4.68) mIU/L Venous Blood Potassium (3.6-5.2) mmol/L Influenza Typ A,B (EIA) (NEGATIVE) Ur L.pneumophila Ag Negative (NEGATIVE) 03/14/18 03/14/18 03/14/18 Range/Units 18:09 18:09 18:09 WBC (4.8-10.8) K/uL RBC (4.40-5.90) Mil/uL Hgb (12.0-18.0) g/dL Hct (35.0-51.0) % MCV (80.0-94.0) fL MCH (27.0-31.0) pg MCHC (33.0-37.0) g/dL RDW (11.5-14.5) % Plt Count (130-400) K/uL MPV (7.2-11.7) fL Neut % (Auto) (50.0-75.0) % Lymph % (Auto) (20.0-40.0) % Blount % (Auto) (0.0-10.0) % Eos % (Auto) (0.0-4.0) % Baso % (Auto) (0.0-2.0) % Neut # (Auto) (1.8-7.0) K/uL Lymph # (Auto) (1.0-4.3) K/uL Blount # (Auto) (0.0-0.8) K/uL Eos # (Auto) (0.0-0.7) K/uL Baso # (Auto) (0.0-0.2) K/uL Neutrophils % (Manual) (50-75) % Band Neutrophils % (0-2) % Lymphocytes % (Manual) (20-40) % Monocytes % (Manual) (0-10) % Platelet Estimate (NORMAL) Hypochromasia (manual) Anisocytosis (manual) Puncture Site pCO2 (35-45) mm/Hg pO2 (30-55) mm/Hg HCO3 (21-28) mmol/L ABG pH (7.35-7.45) ABG Total CO2 (22-28) mmol/L ABG O2 Saturation (95-98) % ABG Base Excess (-2.0-3.0) mmol/L ABG Hemoglobin (11.7-17.4) g/dL ABG Carboxyhemoglobin (0.5-1.5) % POC ABG HHb (Measured) (0.0-5.0) % ABG Methemoglobin (0.0-3.0) % Joseph Test VBG pH (7.32-7.43) VBG pCO2 (40-60) mmHg VBG HCO3 mmol/L VBG Total CO2 (22-28) mmol/L VBG O2 Sat (Calc) (40-65) % VBG Base Excess (0.0-2.0) mmol/L VBG Potassium (3.6-5.2) mmol/L A-a O2 Difference mm/Hg Respiratory Index Hgb O2 Saturation (95.0-98.0) % Sodium (132-148) mmol/l Chloride (98-107) mmol/L Glucose (75-110) mg/dl Lactate (0.7-2.1) mmol/L Vent Mode Mechanical Rate FiO2 % Tidal Volume PEEP Potassium (3.6-5.2) mmol/L Carbon Dioxide (22-30) mmol/L Anion Gap (10-20) BUN (9-20) mg/dL Creatinine (0.8-1.5) mg/dL Est GFR ( Amer) Est GFR (Non-Af Amer) POC Glucose (mg/dL) (65-110) mg/dL Random Glucose (75-110) mg/dL Calcium (8.6-10.4) mg/dl Phosphorus (2.5-4.5) mg/dL Magnesium (1.6-2.3) mg/dL Total Bilirubin (0.2-1.3) mg/dL AST (17-59) U/L ALT (21-72) U/L Alkaline Phosphatase (38-126) U/L Troponin I 1.6500 H* 1.6500 H* (0.00-0.120) ng/mL NT-Pro-B Natriuret Pep (0-900) pg/mL Total Protein (6.3-8.3) g/dL Albumin (3.5-5.0) g/dL Globulin (2.2-3.9) gm/dL Albumin/Globulin Ratio (1.0-2.1) Triglycerides 58 (0-149) mg/dL Cholesterol 80 (0-199) mg/dL LDL Cholesterol Direct 42 (0-129) mg/dL HDL Cholesterol 24 L (30-70) mg/dL Free T4 2.12 (0.78-2.19) ng/dL TSH 3rd Generation 1.74 (0.46-4.68) mIU/L Venous Blood Potassium (3.6-5.2) mmol/L Influenza Typ A,B (EIA) (NEGATIVE) Ur L.pneumophila Ag (NEGATIVE) 03/14/18 03/14/18 03/14/18 Range/Units 17:23 15:45 09:30 WBC (4.8-10.8) K/uL RBC (4.40-5.90) Mil/uL Hgb (12.0-18.0) g/dL Hct (35.0-51.0) % MCV (80.0-94.0) fL MCH (27.0-31.0) pg MCHC (33.0-37.0) g/dL RDW (11.5-14.5) % Plt Count (130-400) K/uL MPV (7.2-11.7) fL Neut % (Auto) (50.0-75.0) % Lymph % (Auto) (20.0-40.0) % Blount % (Auto) (0.0-10.0) % Eos % (Auto) (0.0-4.0) % Baso % (Auto) (0.0-2.0) % Neut # (Auto) (1.8-7.0) K/uL Lymph # (Auto) (1.0-4.3) K/uL Blount # (Auto) (0.0-0.8) K/uL Eos # (Auto) (0.0-0.7) K/uL Baso # (Auto) (0.0-0.2) K/uL Neutrophils % (Manual) (50-75) % Band Neutrophils % (0-2) % Lymphocytes % (Manual) (20-40) % Monocytes % (Manual) (0-10) % Platelet Estimate (NORMAL) Hypochromasia (manual) Anisocytosis (manual) Puncture Site pCO2 (35-45) mm/Hg pO2 62 H (30-55) mm/Hg HCO3 (21-28) mmol/L ABG pH (7.35-7.45) ABG Total CO2 (22-28) mmol/L ABG O2 Saturation (95-98) % ABG Base Excess (-2.0-3.0) mmol/L ABG Hemoglobin (11.7-17.4) g/dL ABG Carboxyhemoglobin (0.5-1.5) % POC ABG HHb (Measured) (0.0-5.0) % ABG Methemoglobin (0.0-3.0) % Joseph Test VBG pH 7.32 (7.32-7.43) VBG pCO2 47 (40-60) mmHg VBG HCO3 23.0 mmol/L VBG Total CO2 25.6 (22-28) mmol/L VBG O2 Sat (Calc) 93.9 H (40-65) % VBG Base Excess -2.2 L (0.0-2.0) mmol/L VBG Potassium 4.1 (3.6-5.2) mmol/L A-a O2 Difference mm/Hg Respiratory Index Hgb O2 Saturation (95.0-98.0) % Sodium 139.0 (132-148) mmol/l Chloride 104.0 (98-107) mmol/L Glucose 85 (75-110) mg/dl Lactate 2.5 H (0.7-2.1) mmol/L Vent Mode Mechanical Rate FiO2 21.0 % Tidal Volume PEEP Potassium (3.6-5.2) mmol/L Carbon Dioxide (22-30) mmol/L Anion Gap (10-20) BUN (9-20) mg/dL Creatinine (0.8-1.5) mg/dL Est GFR ( Amer) Est GFR (Non-Af Amer) POC Glucose (mg/dL) (65-110) mg/dL Random Glucose (75-110) mg/dL Calcium (8.6-10.4) mg/dl Phosphorus (2.5-4.5) mg/dL Magnesium (1.6-2.3) mg/dL Total Bilirubin (0.2-1.3) mg/dL AST (17-59) U/L ALT (21-72) U/L Alkaline Phosphatase (38-126) U/L Troponin I 1.3100 H* (0.00-0.120) ng/mL NT-Pro-B Natriuret Pep 7420 H (0-900) pg/mL Total Protein (6.3-8.3) g/dL Albumin (3.5-5.0) g/dL Globulin (2.2-3.9) gm/dL Albumin/Globulin Ratio (1.0-2.1) Triglycerides (0-149) mg/dL Cholesterol (0-199) mg/dL LDL Cholesterol Direct (0-129) mg/dL HDL Cholesterol (30-70) mg/dL Free T4 (0.78-2.19) ng/dL TSH 3rd Generation (0.46-4.68) mIU/L Venous Blood Potassium 4.1 (3.6-5.2) mmol/L Influenza Typ A,B (EIA) Negative for flu a/b (NEGATIVE) Ur L.pneumophila Ag (NEGATIVE) Laboratory Results - last 24 hr 03/14/18 03/14/18 03/14/18 09:30 15:45 17:23 WBC RBC Hgb Hct MCV MCH MCHC RDW Plt Count MPV Neut % (Auto) Lymph % (Auto) Blount % (Auto) Eos % (Auto) Baso % (Auto) Neut # (Auto) Lymph # (Auto) Blount # (Auto) Eos # (Auto) Baso # (Auto) Neutrophils % (Manual) Band Neutrophils % Lymphocytes % (Manual) Monocytes % (Manual) Platelet Estimate Hypochromasia (manual) Anisocytosis (manual) Puncture Site pCO2 pO2 62 H HCO3 ABG pH ABG Total CO2 ABG O2 Saturation ABG Base Excess ABG Hemoglobin ABG Carboxyhemoglobin POC ABG HHb (Measured) ABG Methemoglobin Joseph Test VBG pH 7.32 VBG pCO2 47 VBG HCO3 23.0 VBG Total CO2 25.6 VBG O2 Sat (Calc) 93.9 H VBG Base Excess -2.2 L VBG Potassium 4.1 A-a O2 Difference Respiratory Index Hgb O2 Saturation Sodium 139.0 Chloride 104.0 Glucose 85 Lactate 2.5 H Vent Mode Mechanical Rate FiO2 21.0 Tidal Volume PEEP Potassium Carbon Dioxide Anion Gap BUN Creatinine Est GFR ( Amer) Est GFR (Non-Af Amer) POC Glucose (mg/dL) Random Glucose Calcium Phosphorus Magnesium Total Bilirubin AST ALT Alkaline Phosphatase Troponin I 1.3100 H* NT-Pro-B Natriuret Pep 7420 H Total Protein Albumin Globulin Albumin/Globulin Ratio Triglycerides Cholesterol LDL Cholesterol Direct HDL Cholesterol Free T4 TSH 3rd Generation Venous Blood Potassium 4.1 Influenza Typ A,B (EIA) Negative for flu a/b Ur L.pneumophila Ag 03/14/18 03/14/18 03/14/18 18:09 18:09 18:09 WBC RBC Hgb Hct MCV MCH MCHC RDW Plt Count MPV Neut % (Auto) Lymph % (Auto) Blount % (Auto) Eos % (Auto) Baso % (Auto) Neut # (Auto) Lymph # (Auto) Blount # (Auto) Eos # (Auto) Baso # (Auto) Neutrophils % (Manual) Band Neutrophils % Lymphocytes % (Manual) Monocytes % (Manual) Platelet Estimate Hypochromasia (manual) Anisocytosis (manual) Puncture Site pCO2 pO2 HCO3 ABG pH ABG Total CO2 ABG O2 Saturation ABG Base Excess ABG Hemoglobin ABG Carboxyhemoglobin POC ABG HHb (Measured) ABG Methemoglobin Joseph Test VBG pH VBG pCO2 VBG HCO3 VBG Total CO2 VBG O2 Sat (Calc) VBG Base Excess VBG Potassium A-a O2 Difference Respiratory Index Hgb O2 Saturation Sodium Chloride Glucose Lactate Vent Mode Mechanical Rate FiO2 Tidal Volume PEEP Potassium Carbon Dioxide Anion Gap BUN Creatinine Est GFR ( Amer) Est GFR (Non-Af Amer) POC Glucose (mg/dL) Random Glucose Calcium Phosphorus Magnesium Total Bilirubin AST ALT Alkaline Phosphatase Troponin I 1.6500 H* 1.6500 H* NT-Pro-B Natriuret Pep Total Protein Albumin Globulin Albumin/Globulin Ratio Triglycerides 58 Cholesterol 80 LDL Cholesterol Direct 42 HDL Cholesterol 24 L Free T4 2.12 TSH 3rd Generation 1.74 Venous Blood Potassium Influenza Typ A,B (EIA) Ur L.pneumophila Ag 03/14/18 03/15/18 03/15/18 Unknown 00:07 00:09 WBC RBC Hgb Hct MCV MCH MCHC RDW Plt Count MPV Neut % (Auto) Lymph % (Auto) Blount % (Auto) Eos % (Auto) Baso % (Auto) Neut # (Auto) Lymph # (Auto) Blount # (Auto) Eos # (Auto) Baso # (Auto) Neutrophils % (Manual) Band Neutrophils % Lymphocytes % (Manual) Monocytes % (Manual) Platelet Estimate Hypochromasia (manual) Anisocytosis (manual) Puncture Site pCO2 pO2 HCO3 ABG pH ABG Total CO2 ABG O2 Saturation ABG Base Excess ABG Hemoglobin ABG Carboxyhemoglobin POC ABG HHb (Measured) ABG Methemoglobin Joseph Test VBG pH VBG pCO2 VBG HCO3 VBG Total CO2 VBG O2 Sat (Calc) VBG Base Excess VBG Potassium A-a O2 Difference Respiratory Index Hgb O2 Saturation Sodium Chloride Glucose Lactate Vent Mode Mechanical Rate FiO2 Tidal Volume PEEP Potassium Carbon Dioxide Anion Gap BUN Creatinine Est GFR ( Amer) Est GFR (Non-Af Amer) POC Glucose (mg/dL) 66 77 Random Glucose Calcium Phosphorus Magnesium Total Bilirubin AST ALT Alkaline Phosphatase Troponin I NT-Pro-B Natriuret Pep Total Protein Albumin Globulin Albumin/Globulin Ratio Triglycerides Cholesterol LDL Cholesterol Direct HDL Cholesterol Free T4 TSH 3rd Generation Venous Blood Potassium Influenza Typ A,B (EIA) Ur L.pneumophila Ag Negative 03/15/18 03/15/18 03/15/18 05:28 06:16 06:18 WBC 11.3 H RBC 3.45 L Hgb 9.4 L Hct 29.3 L MCV 84.8 MCH 27.2 MCHC 32.1 L RDW 15.6 H Plt Count 139 MPV 11.1 Neut % (Auto) 82.0 H Lymph % (Auto) 6.5 L Blount % (Auto) 10.0 Eos % (Auto) 1.0 Baso % (Auto) 0.5 Neut # (Auto) 9.3 H Lymph # (Auto) 0.7 L Blount # (Auto) 1.1 H Eos # (Auto) 0.1 Baso # (Auto) 0.1 Neutrophils % (Manual) 82 H Band Neutrophils % 1 Lymphocytes % (Manual) 6 L Monocytes % (Manual) 11 H Platelet Estimate Normal Hypochromasia (manual) Slight Anisocytosis (manual) Slight Puncture Site Lbra pCO2 37 pO2 274 H HCO3 22.2 ABG pH 7.37 ABG Total CO2 22.5 ABG O2 Saturation 100.0 H ABG Base Excess -3.5 L ABG Hemoglobin 9.5 L ABG Carboxyhemoglobin 1.3 POC ABG HHb (Measured) 0.0 ABG Methemoglobin 1.3 Joseph Test Na VBG pH VBG pCO2 VBG HCO3 VBG Total CO2 VBG O2 Sat (Calc) VBG Base Excess VBG Potassium A-a O2 Difference 179.0 Respiratory Index 0.7 Hgb O2 Saturation 97.5 Sodium 144 Chloride 114 H Glucose Lactate Vent Mode Prvc Mechanical Rate 14 FiO2 70.0 Tidal Volume 500 PEEP 5 Potassium 3.5 L Carbon Dioxide 21 L Anion Gap 12 BUN 13 Creatinine 0.7 L Est GFR ( Amer) > 60 Est GFR (Non-Af Amer) > 60 POC Glucose (mg/dL) Random Glucose 58 L Calcium 7.9 L Phosphorus 2.6 Magnesium 1.6 Total Bilirubin 0.5 AST 47 ALT 23 Alkaline Phosphatase 42 Troponin I NT-Pro-B Natriuret Pep Total Protein 5.4 L Albumin 2.3 L D Globulin 3.1 Albumin/Globulin Ratio 0.7 L Triglycerides Cholesterol LDL Cholesterol Direct HDL Cholesterol Free T4 TSH 3rd Generation Venous Blood Potassium Influenza Typ A,B (EIA) Ur L.pneumophila Ag 03/15/18 03/15/18 03/15/18 06:23 06:25 06:48 WBC RBC Hgb Hct MCV MCH MCHC RDW Plt Count MPV Neut % (Auto) Lymph % (Auto) Blount % (Auto) Eos % (Auto) Baso % (Auto) Neut # (Auto) Lymph # (Auto) Blount # (Auto) Eos # (Auto) Baso # (Auto) Neutrophils % (Manual) Band Neutrophils % Lymphocytes % (Manual) Monocytes % (Manual) Platelet Estimate Hypochromasia (manual) Anisocytosis (manual) Puncture Site pCO2 pO2 HCO3 ABG pH ABG Total CO2 ABG O2 Saturation ABG Base Excess ABG Hemoglobin ABG Carboxyhemoglobin POC ABG HHb (Measured) ABG Methemoglobin Joseph Test VBG pH VBG pCO2 VBG HCO3 VBG Total CO2 VBG O2 Sat (Calc) VBG Base Excess VBG Potassium A-a O2 Difference Respiratory Index Hgb O2 Saturation Sodium Chloride Glucose Lactate Vent Mode Mechanical Rate FiO2 Tidal Volume PEEP Potassium Carbon Dioxide Anion Gap BUN Creatinine Est GFR ( Amer) Est GFR (Non-Af Amer) POC Glucose (mg/dL) 48 L 49 L 151 H Random Glucose Calcium Phosphorus Magnesium Total Bilirubin AST ALT Alkaline Phosphatase Troponin I NT-Pro-B Natriuret Pep Total Protein Albumin Globulin Albumin/Globulin Ratio Triglycerides Cholesterol LDL Cholesterol Direct HDL Cholesterol Free T4 TSH 3rd Generation Venous Blood Potassium Influenza Typ A,B (EIA) Ur L.pneumophila Ag Assessment/Plan - Assessment and Plan (Free Text) Assessment: 73 year old male with history of HTN, HLD, BPH, schizophrenia, CKD, CHF, dementia who was sent in for [facility] for AMS. CT brain found to have large left MCA infarct with elevated troponins. Neuro: -Sedated on Fentanyl ggt -EEG ordered -Repeat CT head this AM -CT brain shows Large acute left MCA territory infarct as detailed above. No hemorrhage. 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 extending into the petrous cavernous and supraclinoid segments -Neuro consulted, help appreciated- Started on Keppra and Depakote CV: -Troponins 1.31--> 1.65 --> 1.65 -proBNP 7420 -Cardiology consulted, help appreciated - not a candidate for cardiac cath at this time -Cont Crestor 10mg PO HS and ASA 81mg PO -Beta luciana not given since patient is slightly hypotensive -f/u ECHO -Unable to reach family for consent for central line, will try again later Pulm: -Intubated on PRVC -CXR today - patchy atalectasis vs infiltrate with minimal L pleural effusion -Wean as tolerated -Maintain SPO2 > 92% GI: -Start tube feeds -Protonix 40mg IVP Renal: -Monitor I and O -Replete electrolytes as needed -NS IV fluids @ 125cc/hr IV -Flomax 0.4mg PO -Continue to monitor electrolyte, replete as needed Endo: -Maintain euglycemia ID: -UA: pos, WBC 11.3 -Currently on Vancomycin and daysi -ID Dr. England consulted, help appreciated -f/u sepic work up Heme: -H/H stable -Cont to monitor PPX: Protonix, and SCDs Case and plan was reviewed and discussed in detail with Dr Perez. <Lazaro Perez S - Last Filed: 03/15/18 18:18> CCU Subjective - Physician Review Critical Care Time Spent (in minutes): 40 CCU Objective - Vital Signs / Intake & Output Vital Signs (Last 4 hours): Vital Signs Temp Pulse Resp BP Pulse Ox 03/15/18 17:37 83 14 106/60 100 03/15/18 17:17 83 14 108/61 100 03/15/18 17:00 81 14 100 03/15/18 16:57 81 14 106/61 100 03/15/18 16:44 91 H 16 85/53 L 100 03/15/18 16:37 90 13 85/53 L 100 03/15/18 16:36 90 13 03/15/18 16:17 96 H 11 L 92/54 L 100 03/15/18 16:16 95 H 13 98 03/15/18 16:00 98.2 F 98 H 14 100 03/15/18 15:57 98 H 13 92/55 L 100 03/15/18 15:37 95 H 13 89/49 L 100 03/15/18 15:30 93 H 14 100 03/15/18 15:19 92 H 12 79/41 L 100 03/15/18 15:17 91 H 13 73/41 L 100 03/15/18 15:09 92 H 15 75/41 L 100 03/15/18 15:05 92 H 14 80/42 L 100 03/15/18 15:02 95 H 13 76/46 L 100 03/15/18 15:00 93 H 14 100 03/15/18 14:51 94 H 14 77/40 L 100 03/15/18 14:42 100 H 14 80/42 L 100 03/15/18 14:41 94 H 13 75/45 L 100 03/15/18 14:31 93 H 7 L 77/41 L 100 03/15/18 14:30 94 H 8 L 03/15/18 14:21 97 H 12 94/56 L 100 Intake and Output (Last 8hrs): Intake & Output 03/15/18 03/15/18 03/15/18 06:59 14:59 22:59 Intake Total 1275 1000 375 Output Total 365 360 45 Balance 910 640 330 Weight 130 lb Intake: Intake, IV Amount 1275 1000 375 Left Wrist 1275 1000 375 Oral 0 0 0 Output: Urine 365 360 45 Urethral (Hawk) 365 360 45 Other: # Bowel Movements 0 0 0 - Medications Active Medications: Active Medications Generic Name Dose Route Start Last Admin Trade Name Freq PRN Reason Stop Dose Admin Aspirin 81 mg 03/15/18 10:00 03/15/18 09:36 Aspirin Chewable PO 81 mg DAILY GHANSHYAM Administration Vancomycin/Sodium Chloride 1 gm in 200 mls @ 133.333 mls/hr 03/14/18 16:00 15:00 Vancomycin 1 Gm/Ns 200 Ml IVPB 03/19/18 16:01 133.333 mls/hr Q12H GHANSHYAM Administration Protocol Fentanyl Citrate 2,500 mcg/ 250 mls @ 12.97 mls/hr 03/14/18 15:15 03/14/18 12 :10 Sodium Chloride IV 1 mcg/kg/hr .[id number] GHANSHYAM 6.48 mls/hr Protocol Administration 2 MCG/KG/HR Sodium Chloride 1,000 mls @ 125 mls/hr 03/14/18 15:15 03/15/18 16:53 Sodium Chloride 0.9% IV 125 mls/hr .Q8H GHANSHYAM Administration Meropenem 1 gm/ Sodium 100 mls @ 100 mls/hr 03/14/18 17:00 03/15/18 16:23 Chloride IVPB 100 mls/hr Q8H GHANSHYAM Administration Protocol Levetiracetam 500 mg/ Dextrose 105 mls @ 420 mls/hr 03/15/18 23:00 IVPB Q12H GHANSHYAM Norepinephrine Bitartrate 4 mg 254 mls @ 15.24 mls/hr 03/15/18 15:53 16:44 / Sodium Chloride IV 4 mcg/min .[id number] PRN 15.24 mls/hr TITRATE PER MD ORDER Administration Protocol 4 MCG/MIN Pantoprazole Sodium 40 mg 03/15/18 10:00 03/15/18 09:36 Protonix Inj IVP 40 mg DAILY GHANSHYAM Administration Rosuvastatin Calcium 10 mg 03/14/18 22:00 03/14/18 23:40 Crestor PO 10 mg HS GHANSHYAM Administration Tamsulosin HCl 0.4 mg 03/15/18 10:00 03/15/18 09:36 Flomax PO 0.4 mg DAILY GHANSHYAM Administration Valproate Sodium 500 mg 03/15/18 10:00 03/15/18 17:32 Depakene Oral Soln PO 500 mg BID GHANSHYAM Administration - Patient Studies Lab Studies: Microbiology Studies 03/14/18 09:33 Urine Culture - Final Urine,Hawk No Growth (<1,000 CFU/ML) 03/14/18 09:35 Blood Culture - Preliminary Blood NO GROWTH AFTER 24 HOURS 03/14/18 09:00 Blood Culture - Preliminary Blood NO GROWTH AFTER 24 HOURS 03/14/18 17:23 Gram Stain - Final Sputum Lab Studies 03/15/18 03/15/18 03/15/18 Range/Units 17:50 11:14 06:48 WBC (4.8-10.8) K/uL RBC (4.40-5.90) Mil/uL Hgb (12.0-18.0) g/dL Hct (35.0-51.0) % MCV (80.0-94.0) fL MCH (27.0-31.0) pg MCHC (33.0-37.0) g/dL RDW (11.5-14.5) % Plt Count (130-400) K/uL MPV (7.2-11.7) fL Neut % (Auto) (50.0-75.0) % Lymph % (Auto) (20.0-40.0) % Blount % (Auto) (0.0-10.0) % Eos % (Auto) (0.0-4.0) % Baso % (Auto) (0.0-2.0) % Neut # (Auto) (1.8-7.0) K/uL Lymph # (Auto) (1.0-4.3) K/uL Blount # (Auto) (0.0-0.8) K/uL Eos # (Auto) (0.0-0.7) K/uL Baso # (Auto) (0.0-0.2) K/uL Neutrophils % (Manual) (50-75) % Band Neutrophils % (0-2) % Lymphocytes % (Manual) (20-40) % Monocytes % (Manual) (0-10) % Platelet Estimate (NORMAL) Hypochromasia (manual) Anisocytosis (manual) Puncture Site pCO2 (35-45) mm/Hg pO2 (80-100) mm/Hg HCO3 (21-28) mmol/L ABG pH (7.35-7.45) ABG Total CO2 (22-28) mmol/L ABG O2 Saturation (95-98) % ABG Base Excess (-2.0-3.0) mmol/L ABG Hemoglobin (11.7-17.4) g/dL ABG Carboxyhemoglobin (0.5-1.5) % POC ABG HHb (Measured) (0.0-5.0) % ABG Methemoglobin (0.0-3.0) % Joseph Test A-a O2 Difference mm/Hg Respiratory Index Hgb O2 Saturation (95.0-98.0) % Vent Mode Mechanical Rate FiO2 % Tidal Volume PEEP Sodium (132-148) mmol/L Potassium (3.6-5.2) mmol/L Chloride (98-107) mmol/L Carbon Dioxide (22-30) mmol/L Anion Gap (10-20) BUN (9-20) mg/dL Creatinine (0.8-1.5) mg/dL Est GFR ( Amer) Est GFR (Non-Af Amer) POC Glucose (mg/dL) 100 84 151 H (65-110) mg/dL Random Glucose (75-110) mg/dL Calcium (8.6-10.4) mg/dl Phosphorus (2.5-4.5) mg/dL Magnesium (1.6-2.3) mg/dL Total Bilirubin (0.2-1.3) mg/dL AST (17-59) U/L ALT (21-72) U/L Alkaline Phosphatase (38-126) U/L Troponin I (0.00-0.120) ng/mL Total Protein (6.3-8.3) g/dL Albumin (3.5-5.0) g/dL Globulin (2.2-3.9) gm/dL Albumin/Globulin Ratio (1.0-2.1) Triglycerides (0-149) mg/dL Cholesterol (0-199) mg/dL LDL Cholesterol Direct (0-129) mg/dL HDL Cholesterol (30-70) mg/dL Free T4 (0.78-2.19) ng/dL TSH 3rd Generation (0.46-4.68) mIU/L Ur L.pneumophila Ag (NEGATIVE) 03/15/18 03/15/18 03/15/18 Range/Units 06:25 06:23 06:18 WBC 11.3 H (4.8-10.8) K/uL RBC 3.45 L (4.40-5.90) Mil/uL Hgb 9.4 L (12.0-18.0) g/dL Hct 29.3 L (35.0-51.0) % MCV 84.8 (80.0-94.0) fL MCH 27.2 (27.0-31.0) pg MCHC 32.1 L (33.0-37.0) g/dL RDW 15.6 H (11.5-14.5) % Plt Count 139 (130-400) K/uL MPV 11.1 (7.2-11.7) fL Neut % (Auto) 82.0 H (50.0-75.0) % Lymph % (Auto) 6.5 L (20.0-40.0) % Blount % (Auto) 10.0 (0.0-10.0) % Eos % (Auto) 1.0 (0.0-4.0) % Baso % (Auto) 0.5 (0.0-2.0) % Neut # (Auto) 9.3 H (1.8-7.0) K/uL Lymph # (Auto) 0.7 L (1.0-4.3) K/uL Blount # (Auto) 1.1 H (0.0-0.8) K/uL Eos # (Auto) 0.1 (0.0-0.7) K/uL Baso # (Auto) 0.1 (0.0-0.2) K/uL Neutrophils % (Manual) 82 H (50-75) % Band Neutrophils % 1 (0-2) % Lymphocytes % (Manual) 6 L (20-40) % Monocytes % (Manual) 11 H (0-10) % Platelet Estimate Normal (NORMAL) Hypochromasia (manual) Slight Anisocytosis (manual) Slight Puncture Site pCO2 (35-45) mm/Hg pO2 (80-100) mm/Hg HCO3 (21-28) mmol/L ABG pH (7.35-7.45) ABG Total CO2 (22-28) mmol/L ABG O2 Saturation (95-98) % ABG Base Excess (-2.0-3.0) mmol/L ABG Hemoglobin (11.7-17.4) g/dL ABG Carboxyhemoglobin (0.5-1.5) % POC ABG HHb (Measured) (0.0-5.0) % ABG Methemoglobin (0.0-3.0) % Joseph Test A-a O2 Difference mm/Hg Respiratory Index Hgb O2 Saturation (95.0-98.0) % Vent Mode Mechanical Rate FiO2 % Tidal Volume PEEP Sodium (132-148) mmol/L Potassium (3.6-5.2) mmol/L Chloride (98-107) mmol/L Carbon Dioxide (22-30) mmol/L Anion Gap (10-20) BUN (9-20) mg/dL Creatinine (0.8-1.5) mg/dL Est GFR ( Amer) Est GFR (Non-Af Amer) POC Glucose (mg/dL) 49 L 48 L (65-110) mg/dL Random Glucose (75-110) mg/dL Calcium (8.6-10.4) mg/dl Phosphorus (2.5-4.5) mg/dL Magnesium (1.6-2.3) mg/dL Total Bilirubin (0.2-1.3) mg/dL AST (17-59) U/L ALT (21-72) U/L Alkaline Phosphatase (38-126) U/L Troponin I (0.00-0.120) ng/mL Total Protein (6.3-8.3) g/dL Albumin (3.5-5.0) g/dL Globulin (2.2-3.9) gm/dL Albumin/Globulin Ratio (1.0-2.1) Triglycerides (0-149) mg/dL Cholesterol (0-199) mg/dL LDL Cholesterol Direct (0-129) mg/dL HDL Cholesterol (30-70) mg/dL Free T4 (0.78-2.19) ng/dL TSH 3rd Generation (0.46-4.68) mIU/L Ur L.pneumophila Ag (NEGATIVE) 03/15/18 03/15/18 03/15/18 Range/Units 06:16 05:28 00:09 WBC (4.8-10.8) K/uL RBC (4.40-5.90) Mil/uL Hgb (12.0-18.0) g/dL Hct (35.0-51.0) % MCV (80.0-94.0) fL MCH (27.0-31.0) pg MCHC (33.0-37.0) g/dL RDW (11.5-14.5) % Plt Count (130-400) K/uL MPV (7.2-11.7) fL Neut % (Auto) (50.0-75.0) % Lymph % (Auto) (20.0-40.0) % Blount % (Auto) (0.0-10.0) % Eos % (Auto) (0.0-4.0) % Baso % (Auto) (0.0-2.0) % Neut # (Auto) (1.8-7.0) K/uL Lymph # (Auto) (1.0-4.3) K/uL Blount # (Auto) (0.0-0.8) K/uL Eos # (Auto) (0.0-0.7) K/uL Baso # (Auto) (0.0-0.2) K/uL Neutrophils % (Manual) (50-75) % Band Neutrophils % (0-2) % Lymphocytes % (Manual) (20-40) % Monocytes % (Manual) (0-10) % Platelet Estimate (NORMAL) Hypochromasia (manual) Anisocytosis (manual) Puncture Site Lbra pCO2 37 (35-45) mm/Hg pO2 274 H (80-100) mm/Hg HCO3 22.2 (21-28) mmol/L ABG pH 7.37 (7.35-7.45) ABG Total CO2 22.5 (22-28) mmol/L ABG O2 Saturation 100.0 H (95-98) % ABG Base Excess -3.5 L (-2.0-3.0) mmol/L ABG Hemoglobin 9.5 L (11.7-17.4) g/dL ABG Carboxyhemoglobin 1.3 (0.5-1.5) % POC ABG HHb (Measured) 0.0 (0.0-5.0) % ABG Methemoglobin 1.3 (0.0-3.0) % Joseph Test Na A-a O2 Difference 179.0 mm/Hg Respiratory Index 0.7 Hgb O2 Saturation 97.5 (95.0-98.0) % Vent Mode Prvc Mechanical Rate 14 FiO2 70.0 % Tidal Volume 500 PEEP 5 Sodium 144 (132-148) mmol/L Potassium 3.5 L (3.6-5.2) mmol/L Chloride 114 H (98-107) mmol/L Carbon Dioxide 21 L (22-30) mmol/L Anion Gap 12 (10-20) BUN 13 (9-20) mg/dL Creatinine 0.7 L (0.8-1.5) mg/dL Est GFR ( Amer) > 60 Est GFR (Non-Af Amer) > 60 POC Glucose (mg/dL) 77 (65-110) mg/dL Random Glucose 58 L (75-110) mg/dL Calcium 7.9 L (8.6-10.4) mg/dl Phosphorus 2.6 (2.5-4.5) mg/dL Magnesium 1.6 (1.6-2.3) mg/dL Total Bilirubin 0.5 (0.2-1.3) mg/dL AST 47 (17-59) U/L ALT 23 (21-72) U/L Alkaline Phosphatase 42 (38-126) U/L Troponin I (0.00-0.120) ng/mL Total Protein 5.4 L (6.3-8.3) g/dL Albumin 2.3 L D (3.5-5.0) g/dL Globulin 3.1 (2.2-3.9) gm/dL Albumin/Globulin Ratio 0.7 L (1.0-2.1) Triglycerides (0-149) mg/dL Cholesterol (0-199) mg/dL LDL Cholesterol Direct (0-129) mg/dL HDL Cholesterol (30-70) mg/dL Free T4 (0.78-2.19) ng/dL TSH 3rd Generation (0.46-4.68) mIU/L Ur L.pneumophila Ag (NEGATIVE) 03/15/18 03/14/18 03/14/18 Range/Units 00:07 Unknown 18:09 WBC (4.8-10.8) K/uL RBC (4.40-5.90) Mil/uL Hgb (12.0-18.0) g/dL Hct (35.0-51.0) % MCV (80.0-94.0) fL MCH (27.0-31.0) pg MCHC (33.0-37.0) g/dL RDW (11.5-14.5) % Plt Count (130-400) K/uL MPV (7.2-11.7) fL Neut % (Auto) (50.0-75.0) % Lymph % (Auto) (20.0-40.0) % Blount % (Auto) (0.0-10.0) % Eos % (Auto) (0.0-4.0) % Baso % (Auto) (0.0-2.0) % Neut # (Auto) (1.8-7.0) K/uL Lymph # (Auto) (1.0-4.3) K/uL Blount # (Auto) (0.0-0.8) K/uL Eos # (Auto) (0.0-0.7) K/uL Baso # (Auto) (0.0-0.2) K/uL Neutrophils % (Manual) (50-75) % Band Neutrophils % (0-2) % Lymphocytes % (Manual) (20-40) % Monocytes % (Manual) (0-10) % Platelet Estimate (NORMAL) Hypochromasia (manual) Anisocytosis (manual) Puncture Site pCO2 (35-45) mm/Hg pO2 (80-100) mm/Hg HCO3 (21-28) mmol/L ABG pH (7.35-7.45) ABG Total CO2 (22-28) mmol/L ABG O2 Saturation (95-98) % ABG Base Excess (-2.0-3.0) mmol/L ABG Hemoglobin (11.7-17.4) g/dL ABG Carboxyhemoglobin (0.5-1.5) % POC ABG HHb (Measured) (0.0-5.0) % ABG Methemoglobin (0.0-3.0) % Joseph Test A-a O2 Difference mm/Hg Respiratory Index Hgb O2 Saturation (95.0-98.0) % Vent Mode Mechanical Rate FiO2 % Tidal Volume PEEP Sodium (132-148) mmol/L Potassium (3.6-5.2) mmol/L Chloride (98-107) mmol/L Carbon Dioxide (22-30) mmol/L Anion Gap (10-20) BUN (9-20) mg/dL Creatinine (0.8-1.5) mg/dL Est GFR ( Amer) Est GFR (Non-Af Amer) POC Glucose (mg/dL) 66 (65-110) mg/dL Random Glucose (75-110) mg/dL Calcium (8.6-10.4) mg/dl Phosphorus (2.5-4.5) mg/dL Magnesium (1.6-2.3) mg/dL Total Bilirubin (0.2-1.3) mg/dL AST (17-59) U/L ALT (21-72) U/L Alkaline Phosphatase (38-126) U/L Troponin I 1.6500 H* (0.00-0.120) ng/mL Total Protein (6.3-8.3) g/dL Albumin (3.5-5.0) g/dL Globulin (2.2-3.9) gm/dL Albumin/Globulin Ratio (1.0-2.1) Triglycerides (0-149) mg/dL Cholesterol (0-199) mg/dL LDL Cholesterol Direct (0-129) mg/dL HDL Cholesterol (30-70) mg/dL Free T4 (0.78-2.19) ng/dL TSH 3rd Generation (0.46-4.68) mIU/L Ur L.pneumophila Ag Negative (NEGATIVE) 03/14/18 03/14/18 Range/Units 18:09 18:09 WBC (4.8-10.8) K/uL RBC (4.40-5.90) Mil/uL Hgb (12.0-18.0) g/dL Hct (35.0-51.0) % MCV (80.0-94.0) fL MCH (27.0-31.0) pg MCHC (33.0-37.0) g/dL RDW (11.5-14.5) % Plt Count (130-400) K/uL MPV (7.2-11.7) fL Neut % (Auto) (50.0-75.0) % Lymph % (Auto) (20.0-40.0) % Blount % (Auto) (0.0-10.0) % Eos % (Auto) (0.0-4.0) % Baso % (Auto) (0.0-2.0) % Neut # (Auto) (1.8-7.0) K/uL Lymph # (Auto) (1.0-4.3) K/uL Blount # (Auto) (0.0-0.8) K/uL Eos # (Auto) (0.0-0.7) K/uL Baso # (Auto) (0.0-0.2) K/uL Neutrophils % (Manual) (50-75) % Band Neutrophils % (0-2) % Lymphocytes % (Manual) (20-40) % Monocytes % (Manual) (0-10) % Platelet Estimate (NORMAL) Hypochromasia (manual) Anisocytosis (manual) Puncture Site pCO2 (35-45) mm/Hg pO2 (80-100) mm/Hg HCO3 (21-28) mmol/L ABG pH (7.35-7.45) ABG Total CO2 (22-28) mmol/L ABG O2 Saturation (95-98) % ABG Base Excess (-2.0-3.0) mmol/L ABG Hemoglobin (11.7-17.4) g/dL ABG Carboxyhemoglobin (0.5-1.5) % POC ABG HHb (Measured) (0.0-5.0) % ABG Methemoglobin (0.0-3.0) % Joseph Test A-a O2 Difference mm/Hg Respiratory Index Hgb O2 Saturation (95.0-98.0) % Vent Mode Mechanical Rate FiO2 % Tidal Volume PEEP Sodium (132-148) mmol/L Potassium (3.6-5.2) mmol/L Chloride (98-107) mmol/L Carbon Dioxide (22-30) mmol/L Anion Gap (10-20) BUN (9-20) mg/dL Creatinine (0.8-1.5) mg/dL Est GFR ( Amer) Est GFR (Non-Af Amer) POC Glucose (mg/dL) (65-110) mg/dL Random Glucose (75-110) mg/dL Calcium (8.6-10.4) mg/dl Phosphorus (2.5-4.5) mg/dL Magnesium (1.6-2.3) mg/dL Total Bilirubin (0.2-1.3) mg/dL AST (17-59) U/L ALT (21-72) U/L Alkaline Phosphatase (38-126) U/L Troponin I 1.6500 H* (0.00-0.120) ng/mL Total Protein (6.3-8.3) g/dL Albumin (3.5-5.0) g/dL Globulin (2.2-3.9) gm/dL Albumin/Globulin Ratio (1.0-2.1) Triglycerides 58 (0-149) mg/dL Cholesterol 80 (0-199) mg/dL LDL Cholesterol Direct 42 (0-129) mg/dL HDL Cholesterol 24 L (30-70) mg/dL Free T4 2.12 (0.78-2.19) ng/dL TSH 3rd Generation 1.74 (0.46-4.68) mIU/L Ur L.pneumophila Ag (NEGATIVE) Laboratory Results - last 24 hr 03/14/18 03/14/18 03/14/18 18:09 18:09 18:09 WBC RBC Hgb Hct MCV MCH MCHC RDW Plt Count MPV Neut % (Auto) Lymph % (Auto) Blount % (Auto) Eos % (Auto) Baso % (Auto) Neut # (Auto) Lymph # (Auto) Blount # (Auto) Eos # (Auto) Baso # (Auto) Neutrophils % (Manual) Band Neutrophils % Lymphocytes % (Manual) Monocytes % (Manual) Platelet Estimate Hypochromasia (manual) Anisocytosis (manual) Puncture Site pCO2 pO2 HCO3 ABG pH ABG Total CO2 ABG O2 Saturation ABG Base Excess ABG Hemoglobin ABG Carboxyhemoglobin POC ABG HHb (Measured) ABG Methemoglobin Joseph Test A-a O2 Difference Respiratory Index Hgb O2 Saturation Vent Mode Mechanical Rate FiO2 Tidal Volume PEEP Sodium Potassium Chloride Carbon Dioxide Anion Gap BUN Creatinine Est GFR ( Amer) Est GFR (Non-Af Amer) POC Glucose (mg/dL) Random Glucose Calcium Phosphorus Magnesium Total Bilirubin AST ALT Alkaline Phosphatase Troponin I 1.6500 H* 1.6500 H* Total Protein Albumin Globulin Albumin/Globulin Ratio Triglycerides 58 Cholesterol 80 LDL Cholesterol Direct 42 HDL Cholesterol 24 L Free T4 2.12 TSH 3rd Generation 1.74 Ur L.pneumophila Ag 03/14/18 03/15/18 03/15/18 Unknown 00:07 00:09 WBC RBC Hgb Hct MCV MCH MCHC RDW Plt Count MPV Neut % (Auto) Lymph % (Auto) Blount % (Auto) Eos % (Auto) Baso % (Auto) Neut # (Auto) Lymph # (Auto) Blount # (Auto) Eos # (Auto) Baso # (Auto) Neutrophils % (Manual) Band Neutrophils % Lymphocytes % (Manual) Monocytes % (Manual) Platelet Estimate Hypochromasia (manual) Anisocytosis (manual) Puncture Site pCO2 pO2 HCO3 ABG pH ABG Total CO2 ABG O2 Saturation ABG Base Excess ABG Hemoglobin ABG Carboxyhemoglobin POC ABG HHb (Measured) ABG Methemoglobin Joseph Test A-a O2 Difference Respiratory Index Hgb O2 Saturation Vent Mode Mechanical Rate FiO2 Tidal Volume PEEP Sodium Potassium Chloride Carbon Dioxide Anion Gap BUN Creatinine Est GFR ( Amer) Est GFR (Non-Af Amer) POC Glucose (mg/dL) 66 77 Random Glucose Calcium Phosphorus Magnesium Total Bilirubin AST ALT Alkaline Phosphatase Troponin I Total Protein Albumin Globulin Albumin/Globulin Ratio Triglycerides Cholesterol LDL Cholesterol Direct HDL Cholesterol Free T4 TSH 3rd Generation Ur L.pneumophila Ag Negative 03/15/18 03/15/18 03/15/18 05:28 06:16 06:18 WBC 11.3 H RBC 3.45 L Hgb 9.4 L Hct 29.3 L MCV 84.8 MCH 27.2 MCHC 32.1 L RDW 15.6 H Plt Count 139 MPV 11.1 Neut % (Auto) 82.0 H Lymph % (Auto) 6.5 L Blount % (Auto) 10.0 Eos % (Auto) 1.0 Baso % (Auto) 0.5 Neut # (Auto) 9.3 H Lymph # (Auto) 0.7 L Blount # (Auto) 1.1 H Eos # (Auto) 0.1 Baso # (Auto) 0.1 Neutrophils % (Manual) 82 H Band Neutrophils % 1 Lymphocytes % (Manual) 6 L Monocytes % (Manual) 11 H Platelet Estimate Normal Hypochromasia (manual) Slight Anisocytosis (manual) Slight Puncture Site Lbra pCO2 37 pO2 274 H HCO3 22.2 ABG pH 7.37 ABG Total CO2 22.5 ABG O2 Saturation 100.0 H ABG Base Excess -3.5 L ABG Hemoglobin 9.5 L ABG Carboxyhemoglobin 1.3 POC ABG HHb (Measured) 0.0 ABG Methemoglobin 1.3 Joseph Test Na A-a O2 Difference 179.0 Respiratory Index 0.7 Hgb O2 Saturation 97.5 Vent Mode Prvc Mechanical Rate 14 FiO2 70.0 Tidal Volume 500 PEEP 5 Sodium 144 Potassium 3.5 L Chloride 114 H Carbon Dioxide 21 L Anion Gap 12 BUN 13 Creatinine 0.7 L Est GFR ( Amer) > 60 Est GFR (Non-Af Amer) > 60 POC Glucose (mg/dL) Random Glucose 58 L Calcium 7.9 L Phosphorus 2.6 Magnesium 1.6 Total Bilirubin 0.5 AST 47 ALT 23 Alkaline Phosphatase 42 Troponin I Total Protein 5.4 L Albumin 2.3 L D Globulin 3.1 Albumin/Globulin Ratio 0.7 L Triglycerides Cholesterol LDL Cholesterol Direct HDL Cholesterol Free T4 TSH 3rd Generation Ur L.pneumophila Ag 03/15/18 03/15/18 03/15/18 06:23 06:25 06:48 WBC RBC Hgb Hct MCV MCH MCHC RDW Plt Count MPV Neut % (Auto) Lymph % (Auto) Blount % (Auto) Eos % (Auto) Baso % (Auto) Neut # (Auto) Lymph # (Auto) Blount # (Auto) Eos # (Auto) Baso # (Auto) Neutrophils % (Manual) Band Neutrophils % Lymphocytes % (Manual) Monocytes % (Manual) Platelet Estimate Hypochromasia (manual) Anisocytosis (manual) Puncture Site pCO2 pO2 HCO3 ABG pH ABG Total CO2 ABG O2 Saturation ABG Base Excess ABG Hemoglobin ABG Carboxyhemoglobin POC ABG HHb (Measured) ABG Methemoglobin Joseph Test A-a O2 Difference Respiratory Index Hgb O2 Saturation Vent Mode Mechanical Rate FiO2 Tidal Volume PEEP Sodium Potassium Chloride Carbon Dioxide Anion Gap BUN Creatinine Est GFR ( Amer) Est GFR (Non-Af Amer) POC Glucose (mg/dL) 48 L 49 L 151 H Random Glucose Calcium Phosphorus Magnesium Total Bilirubin AST ALT Alkaline Phosphatase Troponin I Total Protein Albumin Globulin Albumin/Globulin Ratio Triglycerides Cholesterol LDL Cholesterol Direct HDL Cholesterol Free T4 TSH 3rd Generation Ur L.pneumophila Ag 03/15/18 03/15/18 11:14 17:50 WBC RBC Hgb Hct MCV MCH MCHC RDW Plt Count MPV Neut % (Auto) Lymph % (Auto) Blount % (Auto) Eos % (Auto) Baso % (Auto) Neut # (Auto) Lymph # (Auto) Blount # (Auto) Eos # (Auto) Baso # (Auto) Neutrophils % (Manual) Band Neutrophils % Lymphocytes % (Manual) Monocytes % (Manual) Platelet Estimate Hypochromasia (manual) Anisocytosis (manual) Puncture Site pCO2 pO2 HCO3 ABG pH ABG Total CO2 ABG O2 Saturation ABG Base Excess ABG Hemoglobin ABG Carboxyhemoglobin POC ABG HHb (Measured) ABG Methemoglobin Joseph Test A-a O2 Difference Respiratory Index Hgb O2 Saturation Vent Mode Mechanical Rate FiO2 Tidal Volume PEEP Sodium Potassium Chloride Carbon Dioxide Anion Gap BUN Creatinine Est GFR ( Amer) Est GFR (Non-Af Amer) POC Glucose (mg/dL) 84 100 Random Glucose Calcium Phosphorus Magnesium Total Bilirubin AST ALT Alkaline Phosphatase Troponin I Total Protein Albumin Globulin Albumin/Globulin Ratio Triglycerides Cholesterol LDL Cholesterol Direct HDL Cholesterol Free T4 TSH 3rd Generation Ur L.pneumophila Ag Attending/Attestation - Attestation I have personally seen and examined this patient.: Yes I have fully participated in the care of the patient.: Yes I have reviewed all pertinent clinical information: Yes Notes (Text): 03/15/18 18:16 patient seen and examined in the intensive care unit Patient is more responsive Remained intubated on ventilatory support Repeat CAT scan of the head noted eEG done On valproic acid and Depakote Continue IV antibiotics Started on pressors for hypotension continue IV fluids Echocardiogram
--- NOTE | 2018-03-15 10:51 | CP.PCM.PN ---
Subjective - Date & Time of Evaluation Date of Evaluation: 03/15/18 Time of Evaluation: 10:30 - Subjective Subjective: Mr. Pedro continues to have a NIHHS of 31-32, but he is responding to sternal rub by grimacing, but there are no corneals. No dolls eyes. Currently he is not posturing, and is on board for repeat CT scan head. On exam: Pupils are pinpoint, and sluggishly reactive. Weak gag, no corneals, no dolls eyes. grimaces to sternal rub. no verbal output, no spontaneous movement Vital signs show hypotension at 95/84. Objective - Vital Signs/Intake and Output Vital Signs (last 24 hours): Temp Pulse Resp BP Pulse Ox 99.1 F 96 H 11 L 85/47 L 100 03/15/18 04:00 03/15/18 10:03 03/15/18 10:03 03/15/18 10:03 03/15/18 10:03 Intake and Output: 03/15/18 03/15/18 06:59 18:59 Intake Total 1775 Output Total 560 Balance 1215 - Medications Medications: Current Medications Aspirin (Aspirin Chewable) 81 mg PO DAILY [facility] Last Admin: 03/15/18 09:36 Dose: 81 mg Levetiracetam 1,000 mg/ (Dextrose) 110 mls @ 420 mls/hr IVPB Q12H [facility] Last Admin: 03/14/18 23:40 Dose: 420 mls/hr Vancomycin/Sodium Chloride (Vancomycin 1 Gm/Ns 200 Ml) 1 gm in 200 mls @ 133.333 mls/hr IVPB Q12H [facility] PRN Reason: Protocol Stop: 03/19/18 16:01 Last Admin: 03/15/18 03:24 Dose: 133.333 mls/hr Fentanyl Citrate 2,500 mcg/ (Sodium Chloride) 250 mls @ 12.97 mls/hr IV .[id number] [facility]; 2 MCG/KG/HR PRN Reason: Protocol Last Admin: 03/14/18 12:10 Dose: 1 mcg/kg/hr, 6.48 mls/hr Sodium Chloride (Sodium Chloride 0.9%) 1,000 mls @ 125 mls/hr IV .Q8H [facility] Last Admin: 03/15/18 07:15 Dose: Not Given Meropenem 1 gm/ Sodium (Chloride) 100 mls @ 100 mls/hr IVPB Q8H [facility] PRN Reason: Protocol Last Admin: 03/15/18 09:37 Dose: 100 mls/hr Pantoprazole Sodium (Protonix Inj) 40 mg IVP DAILY [facility] Last Admin: 03/15/18 09:36 Dose: 40 mg Rosuvastatin Calcium (Crestor) 10 mg PO HS [facility] Last Admin: 03/14/18 23:40 Dose: 10 mg Tamsulosin HCl (Flomax) 0.4 mg PO DAILY [facility] Last Admin: 03/15/18 09:36 Dose: 0.4 mg Valproate Sodium (Depakene Oral Soln) 500 mg PO BID [facility] Last Admin: 03/15/18 09:36 Dose: 500 mg - Labs Labs: 03/15/18 06:18 03/15/18 06:16 PT 17.4 SECONDS (9.7-12.2) H 03/14/18 09:30 INR 1.6 03/14/18 09:30 APTT 31 SECONDS (21-34) 03/14/18 09:30 Assessment and Plan - Assessment and Plan (Free Text) Assessment: CT head: shows left sided loss of gyri and sulci. 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 and thirty percent stenosis of the carotid artery. A/P: 73 yr old male who has subacute large Left mca stroke, who now is slightly improved. I am very concerned about him having continuous seizures, and herniation. Plan: 1. CT head repeat now 2. continue on depakote and keppra, 500 mg iv bid and 1000 mg bid respectively. 3. Will consider transfer for video eeg. thank you Dr. boothe
--- NOTE | 2018-03-15 12:01 | CP.PCM.CON ---
History of Present Illness - History of Present Illness History of Present Illness: Podiatry Consult Note - Dr. Spears HPI obtained from chart review. 73 y/o male patient with PMHx of pneumonia, CHF , ND, and sepsis seen in ICU after consultation for right foot ulcer. Pt is intubated at time of visit. Multipodus boots in place to bilateral lower extremities. Review of Systems - Review of Systems All systems: reviewed and no additional remarkable complaints except (per HPI) Past Patient History - Infectious Disease Hx of Infectious Diseases: None - Tetanus Immunizations Tetanus Immunization: Unknown - Past Medical History & Family History Past Medical History?: Yes - Past Social History Smoking Status: Never Smoked - CARDIAC Hx Congestive Heart Failure: Yes Hx Hypercholesterolemia: Yes Hx Hypertension: Yes - PULMONARY Hx Asthma: Yes Hx Chronic Obstructive Pulmonary Disease (COPD): Yes Hx Pneumonia: Yes - HEENT Hx HEENT Problems: Yes Hx Cataracts: Yes Other/Comment: hard of hearing - RENAL Hx Chronic Kidney Disease: Yes (renal insufficiency) - PSYCHIATRIC Hx Anxiety: Yes Hx Bipolar Disorder: Yes Hx Depression: Yes Hx Schizophrenia: Yes Hx Substance Use: No - SURGICAL HISTORY Hx Tonsillectomy: Yes - ANESTHESIA Hx Anesthesia: Yes Hx Anesthesia Reactions: No Hx Malignant Hyperthermia: No Meds Allergies/Adverse Reactions: Allergies Allergy/AdvReac Type Severity Reaction Status Date / Time No Known Allergies Allergy Verified 03/14/18 09:01 - Medications Medications: Current Medications Aspirin (Aspirin Chewable) 81 mg PO DAILY [facility] Last Admin: 03/15/18 09:36 Dose: 81 mg Levetiracetam 1,000 mg/ (Dextrose) 110 mls @ 420 mls/hr IVPB Q12H [facility] Last Admin: 03/14/18 23:40 Dose: 420 mls/hr Vancomycin/Sodium Chloride (Vancomycin 1 Gm/Ns 200 Ml) 1 gm in 200 mls @ 133.333 mls/hr IVPB Q12H [facility] PRN Reason: Protocol Stop: 03/19/18 16:01 Last Admin: 03/15/18 03:24 Dose: 133.333 mls/hr Fentanyl Citrate 2,500 mcg/ (Sodium Chloride) 250 mls @ 12.97 mls/hr IV .[id number] [facility]; 2 MCG/KG/HR PRN Reason: Protocol Last Admin: 03/14/18 12:10 Dose: 1 mcg/kg/hr, 6.48 mls/hr Sodium Chloride (Sodium Chloride 0.9%) 1,000 mls @ 125 mls/hr IV .Q8H [facility] Last Admin: 03/15/18 07:15 Dose: Not Given Meropenem 1 gm/ Sodium (Chloride) 100 mls @ 100 mls/hr IVPB Q8H [facility] PRN Reason: Protocol Last Admin: 03/15/18 09:37 Dose: 100 mls/hr Pantoprazole Sodium (Protonix Inj) 40 mg IVP DAILY [facility] Last Admin: 03/15/18 09:36 Dose: 40 mg Rosuvastatin Calcium (Crestor) 10 mg PO HS [facility] Last Admin: 03/14/18 23:40 Dose: 10 mg Tamsulosin HCl (Flomax) 0.4 mg PO DAILY [facility] Last Admin: 03/15/18 09:36 Dose: 0.4 mg Valproate Sodium (Depakene Oral Soln) 500 mg PO BID [facility] Last Admin: 03/15/18 09:36 Dose: 500 mg Physical Exam - Constitutional Appears: Well, Non-toxic, No Acute Distress - Extremities Exam Additional comments: Lower extremity exam: Vasc: DP/PT pulses palpable 1/4 B/L. Temperature gradient warm to cool. CFT < 3 sec to all digits. No pedal edema noted Derm: Open superficial ulcer to right foot 2nd digit approx 1cm x 1.2cm x 0.1cm. Mixed fibrogranular wound base. No drainage or purulence, no tunneling or undermining, no malodor. Neuro: Unable to assess secondary to mental status Ortho: Hammertoe contractures noted to digits 2-5 of feet B/L - Psychiatric Exam Psychiatric exam: Normal Affect, Normal Mood Results - Vital Signs Recent Vital Signs: Last Vital Signs Temp 99.1 F 03/15/18 04:00 Pulse 96 H 03/15/18 10:03 Resp 11 L 03/15/18 10:03 BP 85/47 L 03/15/18 10:03 Pulse Ox 100 03/15/18 10:03 - Labs Result Diagrams: 03/15/18 06:18 03/15/18 06:16 Labs: Laboratory Results - last 24 hr 03/14/18 03/14/18 03/14/18 15:45 17:23 18:09 WBC RBC Hgb Hct MCV MCH MCHC RDW Plt Count MPV Neut % (Auto) Lymph % (Auto) [place] % (Auto) Eos % (Auto) Baso % (Auto) Neut # (Auto) Lymph # (Auto) [place] # (Auto) Eos # (Auto) Baso # (Auto) Neutrophils % (Manual) Band Neutrophils % Lymphocytes % (Manual) Monocytes % (Manual) Platelet Estimate Hypochromasia (manual) Anisocytosis (manual) Puncture Site pCO2 pO2 62 H HCO3 ABG pH ABG Total CO2 ABG O2 Saturation ABG Base Excess ABG Hemoglobin ABG Carboxyhemoglobin POC ABG HHb (Measured) ABG Methemoglobin Joseph Test VBG pH 7.32 VBG pCO2 47 VBG HCO3 23.0 VBG Total CO2 25.6 VBG O2 Sat (Calc) 93.9 H VBG Base Excess -2.2 L VBG Potassium 4.1 A-a O2 Difference Respiratory Index Hgb O2 Saturation Sodium 139.0 Chloride 104.0 Glucose 85 Lactate 2.5 H Vent Mode Mechanical Rate FiO2 21.0 Tidal Volume PEEP Potassium Carbon Dioxide Anion Gap BUN Creatinine Est GFR ( Amer) Est GFR (Non-Af Amer) POC Glucose (mg/dL) Random Glucose Calcium Phosphorus Magnesium Total Bilirubin AST ALT Alkaline Phosphatase Troponin I 1.6500 H* Total Protein Albumin Globulin Albumin/Globulin Ratio Triglycerides 58 Cholesterol 80 LDL Cholesterol Direct 42 HDL Cholesterol 24 L Free T4 TSH 3rd Generation 1.74 Venous Blood Potassium 4.1 Influenza Typ A,B (EIA) Negative for flu a/b Ur L.pneumophila Ag 03/14/18 03/14/18 03/14/18 18:09 18:09 Unknown WBC RBC Hgb Hct MCV MCH MCHC RDW Plt Count MPV Neut % (Auto) Lymph % (Auto) [place] % (Auto) Eos % (Auto) Baso % (Auto) Neut # (Auto) Lymph # (Auto) [place] # (Auto) Eos # (Auto) Baso # (Auto) Neutrophils % (Manual) Band Neutrophils % Lymphocytes % (Manual) Monocytes % (Manual) Platelet Estimate Hypochromasia (manual) Anisocytosis (manual) Puncture Site pCO2 pO2 HCO3 ABG pH ABG Total CO2 ABG O2 Saturation ABG Base Excess ABG Hemoglobin ABG Carboxyhemoglobin POC ABG HHb (Measured) ABG Methemoglobin Joseph Test VBG pH VBG pCO2 VBG HCO3 VBG Total CO2 VBG O2 Sat (Calc) VBG Base Excess VBG Potassium A-a O2 Difference Respiratory Index Hgb O2 Saturation Sodium Chloride Glucose Lactate Vent Mode Mechanical Rate FiO2 Tidal Volume PEEP Potassium Carbon Dioxide Anion Gap BUN Creatinine Est GFR ( Amer) Est GFR (Non-Af Amer) POC Glucose (mg/dL) Random Glucose Calcium Phosphorus Magnesium Total Bilirubin AST ALT Alkaline Phosphatase Troponin I 1.6500 H* Total Protein Albumin Globulin Albumin/Globulin Ratio Triglycerides Cholesterol LDL Cholesterol Direct HDL Cholesterol Free T4 2.12 TSH 3rd Generation Venous Blood Potassium Influenza Typ A,B (EIA) Ur L.pneumophila Ag Negative 03/15/18 03/15/18 03/15/18 00:07 00:09 05:28 WBC RBC Hgb Hct MCV MCH MCHC RDW Plt Count MPV Neut % (Auto) Lymph % (Auto) [place] % (Auto) Eos % (Auto) Baso % (Auto) Neut # (Auto) Lymph # (Auto) [place] # (Auto) Eos # (Auto) Baso # (Auto) Neutrophils % (Manual) Band Neutrophils % Lymphocytes % (Manual) Monocytes % (Manual) Platelet Estimate Hypochromasia (manual) Anisocytosis (manual) Puncture Site Lbra pCO2 37 pO2 274 H HCO3 22.2 ABG pH 7.37 ABG Total CO2 22.5 ABG O2 Saturation 100.0 H ABG Base Excess -3.5 L ABG Hemoglobin 9.5 L ABG Carboxyhemoglobin 1.3 POC ABG HHb (Measured) 0.0 ABG Methemoglobin 1.3 Joseph Test Na VBG pH VBG pCO2 VBG HCO3 VBG Total CO2 VBG O2 Sat (Calc) VBG Base Excess VBG Potassium A-a O2 Difference 179.0 Respiratory Index 0.7 Hgb O2 Saturation 97.5 Sodium Chloride Glucose Lactate Vent Mode Prvc Mechanical Rate 14 FiO2 70.0 Tidal Volume 500 PEEP 5 Potassium Carbon Dioxide Anion Gap BUN Creatinine Est GFR ( Amer) Est GFR (Non-Af Amer) POC Glucose (mg/dL) 66 77 Random Glucose Calcium Phosphorus Magnesium Total Bilirubin AST ALT Alkaline Phosphatase Troponin I Total Protein Albumin Globulin Albumin/Globulin Ratio Triglycerides Cholesterol LDL Cholesterol Direct HDL Cholesterol Free T4 TSH 3rd Generation Venous Blood Potassium Influenza Typ A,B (EIA) Ur L.pneumophila Ag 03/15/18 03/15/18 03/15/18 06:16 06:18 06:23 WBC 11.3 H RBC 3.45 L Hgb 9.4 L Hct 29.3 L MCV 84.8 MCH 27.2 MCHC 32.1 L RDW 15.6 H Plt Count 139 MPV 11.1 Neut % (Auto) 82.0 H Lymph % (Auto) 6.5 L [place] % (Auto) 10.0 Eos % (Auto) 1.0 Baso % (Auto) 0.5 Neut # (Auto) 9.3 H Lymph # (Auto) 0.7 L [place] # (Auto) 1.1 H Eos # (Auto) 0.1 Baso # (Auto) 0.1 Neutrophils % (Manual) 82 H Band Neutrophils % 1 Lymphocytes % (Manual) 6 L Monocytes % (Manual) 11 H Platelet Estimate Normal Hypochromasia (manual) Slight Anisocytosis (manual) Slight Puncture Site pCO2 pO2 HCO3 ABG pH ABG Total CO2 ABG O2 Saturation ABG Base Excess ABG Hemoglobin ABG Carboxyhemoglobin POC ABG HHb (Measured) ABG Methemoglobin Joseph Test VBG pH VBG pCO2 VBG HCO3 VBG Total CO2 VBG O2 Sat (Calc) VBG Base Excess VBG Potassium A-a O2 Difference Respiratory Index Hgb O2 Saturation Sodium 144 Chloride 114 H Glucose Lactate Vent Mode Mechanical Rate FiO2 Tidal Volume PEEP Potassium 3.5 L Carbon Dioxide 21 L Anion Gap 12 BUN 13 Creatinine 0.7 L Est GFR ( Amer) > 60 Est GFR (Non-Af Amer) > 60 POC Glucose (mg/dL) 48 L Random Glucose 58 L Calcium 7.9 L Phosphorus 2.6 Magnesium 1.6 Total Bilirubin 0.5 AST 47 ALT 23 Alkaline Phosphatase 42 Troponin I Total Protein 5.4 L Albumin 2.3 L D Globulin 3.1 Albumin/Globulin Ratio 0.7 L Triglycerides Cholesterol LDL Cholesterol Direct HDL Cholesterol Free T4 TSH 3rd Generation Venous Blood Potassium Influenza Typ A,B (EIA) Ur L.pneumophila Ag 03/15/18 03/15/18 06:25 06:48 WBC RBC Hgb Hct MCV MCH MCHC RDW Plt Count MPV Neut % (Auto) Lymph % (Auto) [place] % (Auto) Eos % (Auto) Baso % (Auto) Neut # (Auto) Lymph # (Auto) [place] # (Auto) Eos # (Auto) Baso # (Auto) Neutrophils % (Manual) Band Neutrophils % Lymphocytes % (Manual) Monocytes % (Manual) Platelet Estimate Hypochromasia (manual) Anisocytosis (manual) Puncture Site pCO2 pO2 HCO3 ABG pH ABG Total CO2 ABG O2 Saturation ABG Base Excess ABG Hemoglobin ABG Carboxyhemoglobin POC ABG HHb (Measured) ABG Methemoglobin Joseph Test VBG pH VBG pCO2 VBG HCO3 VBG Total CO2 VBG O2 Sat (Calc) VBG Base Excess VBG Potassium A-a O2 Difference Respiratory Index Hgb O2 Saturation Sodium Chloride Glucose Lactate Vent Mode Mechanical Rate FiO2 Tidal Volume PEEP Potassium Carbon Dioxide Anion Gap BUN Creatinine Est GFR ( Amer) Est GFR (Non-Af Amer) POC Glucose (mg/dL) 49 L 151 H Random Glucose Calcium Phosphorus Magnesium Total Bilirubin AST ALT Alkaline Phosphatase Troponin I Total Protein Albumin Globulin Albumin/Globulin Ratio Triglycerides Cholesterol LDL Cholesterol Direct HDL Cholesterol Free T4 TSH 3rd Generation Venous Blood Potassium Influenza Typ A,B (EIA) Ur L.pneumophila Ag Assessment & Plan - Assessment and Plan (Free Text) Assessment: 73 y/o male with right foot 2nd digit ulceration Plan Pt seen and evaluated in ICU with Dr. Spears Afebrile, mild leukocytosis noted Wound cleaned with saline and dressed with xeroform and gauze Ulcer is stable from podiatry standpoint Wound does not appear clinically infected Will continue to follow patient
--- NOTE | 2018-03-15 12:12 | CT ---
Date of service: 03/15/2018 PROCEDURE: CT HEAD WITHOUT CONTRAST. HISTORY: stroke. COMPARISON: Comparison made with prior study dated 03/14/2018. TECHNIQUE: Axial computed tomography images were obtained through the head/brain without intravenous contrast. Radiation dose: Total exam DLP = 1651.05 mGy-cm. This CT exam was performed using one or more of the following dose reduction techniques: Automated exposure control, adjustment of the mA and/or kV according to patient size, and/or use of iterative reconstruction technique. FINDINGS: HEMORRHAGE: No evidence of acute intracranial hemorrhage. BRAIN: Large acute left MCA territory infarct with loss of the corticomedullary junction overlying sulcal effacement and compression of the left lateral ventricle. Additionally, there there are apparent infarct changes in the right posterior temporoparietal watershed zone as well with probable involvement of the right posterolateral basal ganglia/ coronal radiata junction and deeper white matter. VENTRICLES: Unremarkable. No hydrocephalus. CALVARIUM: Unremarkable. PARANASAL SINUSES: Unremarkable as visualized. No significant inflammatory changes. MASTOID AIR CELLS: Unremarkable as visualized. No inflammatory changes. OTHER FINDINGS: In situ endotracheal tube and O GT. IMPRESSION: Large acute left MCA territory infarct with loss of the corticomedullary junction overlying sulcal effacement and compression of the left lateral ventricle. Additionally, there there are apparent infarct changes in the right posterior temporoparietal watershed zone as well with probable involvement of the right posterolateral basal ganglia/ coronal radiata junction and deeper white matter. No evidence of acute parenchymal, subarachnoid or extra-axial hemorrhage.
[2018-03-15] MEDS ORDERED: Sodium Chloride 0.9% 1,000 ML IV ONE (12:20)
[2018-03-15] MEDS ORDERED: Potassium Chloride 20 mEq/15 ml LIQ UD PO ONE (12:45)
--- NOTE | 2018-03-15 12:54 | CARD ---
APPROVED REPORT Date of service: 03/14/2018 EKG Measurement Heart [id number] <Conclusion> Sinus rhythm with occasional premature ventricular complexes ST & T wave abnormality, consider inferior ischemia ST & T wave abnormality, consider anterolateral ischemia Abnormal ECG
--- NOTE | 2018-03-15 16:48 | RAD ---
Date of service: 03/15/2018 HISTORY: post central line COMPARISON: March 15, 2018. Time of the most recent examination: 07:10. FINDINGS: LUNGS: Consolidative changes/ atelectasis primarily at left lower lobe. PLEURA: Stable left pleural effusion. CARDIOVASCULAR: No radiographic findings to suggest acute or significant cardiovascular disease. Venous access catheter in satisfactory position. Inserted via right internal jugular approach. OSSEOUS STRUCTURES: No significant abnormalities. VISUALIZED UPPER ABDOMEN: Normal. OTHER FINDINGS: Satisfactory position of nasogastric tube and endotracheal tube. IMPRESSION: No adverse findings/ no pneumothorax following right IJ catheter placement. Remaining support apparatus stable. No interval change compared to prior studies.
--- NOTE | 2018-03-15 17:14 | CP.PCM.PN ---
<Kathy Trinidad - Last Filed: 03/15/18 17:19> Subjective - Date & Time of Evaluation Date of Evaluation: 03/15/18 Time of Evaluation: 05:00 - Subjective Subjective: Cardiology progress note ( Dr. Ramirez's service) Patient was seen and examined at bedside. Patient is currently intubated and clinically the same. Unable to evaluate ROS due to current clinical status. Objective - Vital Signs/Intake and Output Vital Signs (last 24 hours): Temp Pulse Resp BP Pulse Ox 99.1 F 91 H 16 85/53 L 100 03/15/18 04:00 03/15/18 16:44 03/15/18 16:44 03/15/18 16:44 03/15/18 16:44 Intake and Output: 03/15/18 03/15/18 06:59 18:59 Intake Total 1775 1250 Output Total 560 405 Balance 1215 845 - Medications Medications: Current Medications Aspirin (Aspirin Chewable) 81 mg PO DAILY [facility] Last Admin: 03/15/18 09:36 Dose: 81 mg Vancomycin/Sodium Chloride (Vancomycin 1 Gm/Ns 200 Ml) 1 gm in 200 mls @ 133.333 mls/hr IVPB Q12H [facility] PRN Reason: Protocol Stop: 03/19/18 16:01 Last Admin: 03/15/18 15:00 Dose: 133.333 mls/hr Fentanyl Citrate 2,500 mcg/ (Sodium Chloride) 250 mls @ 12.97 mls/hr IV .[id number] [facility]; 2 MCG/KG/HR PRN Reason: Protocol Last Admin: 03/14/18 12:10 Dose: 1 mcg/kg/hr, 6.48 mls/hr Sodium Chloride (Sodium Chloride 0.9%) 1,000 mls @ 125 mls/hr IV .Q8H [facility] Last Admin: 03/15/18 16:53 Dose: 125 mls/hr Meropenem 1 gm/ Sodium (Chloride) 100 mls @ 100 mls/hr IVPB Q8H [facility] PRN Reason: Protocol Last Admin: 03/15/18 16:23 Dose: 100 mls/hr Levetiracetam 500 mg/ Dextrose 105 mls @ 420 mls/hr IVPB Q12H [facility] Norepinephrine Bitartrate 4 mg (/ Sodium Chloride) 254 mls @ 15.24 mls/hr IV .[id number] PRN; Protocol; 4 MCG/MIN PRN Reason: TITRATE PER MD ORDER Last Admin: 03/15/18 16:44 Dose: 4 mcg/min, 15.24 mls/hr Pantoprazole Sodium (Protonix Inj) 40 mg IVP DAILY [facility] Last Admin: 03/15/18 09:36 Dose: 40 mg Rosuvastatin Calcium (Crestor) 10 mg PO HS [facility] Last Admin: 03/14/18 23:40 Dose: 10 mg Tamsulosin HCl (Flomax) 0.4 mg PO DAILY [facility] Last Admin: 03/15/18 09:36 Dose: 0.4 mg Valproate Sodium (Depakene Oral Soln) 500 mg PO BID [facility] Last Admin: 03/15/18 09:36 Dose: 500 mg - Labs Labs: 03/15/18 06:18 03/15/18 06:16 PT 17.4 SECONDS (9.7-12.2) H 03/14/18 09:30 INR 1.6 03/14/18 09:30 APTT 31 SECONDS (21-34) 03/14/18 09:30 - Head Exam Head Exam: ATRAUMATIC - Respiratory Exam Respiratory Exam: NORMAL BREATHING PATTERN Additional comments: Intubation on sedation - Cardiovascular Exam Cardiovascular Exam: REGULAR RHYTHM - GI/Abdominal Exam GI & Abdominal Exam: Normal Bowel Sounds - Neurological Exam Neurological Exam: absent: Alert, Awake, Oriented x3 Assessment and Plan (1) Non-STEMI (non-ST elevated myocardial infarction) Assessment & Plan: 1.3100--->1.6500-->1.6500 Lipid panel: - TGL: 58, Chol: 80, LDL:42 and HDL: 24 TSH 3rd gen and free T4: 1.74 and 2.12 BNP: 7420 EKG: T-wave abnormality in V2 and V3 F/u echocardiogram official report ASA 81mg PO daily Crestor 10mg PO HS Patient is currently not a candidate for cardiac catherization. Please continue medical management at this time Status: Acute (2) Stroke Assessment & Plan: Repeat Head CT (03/15/18): Large acute left MCA territory infarct with loss of the corticomedullary junction overlying sulcal effacement and compression of the left lateral ventricle. Additionally, there there are apparent infarct changes in the right posterior temporoparietal watershed zone as well with probable involvement of the right posterolateral basal ganglia/ coronal radiata junction and deeper white matter. No evidence of acute parenchymal, subarachnoid or extra-axial hemorrhage. HEAD CT (03/14/18): Large acute left MCA territory infarct as detailed above. No hemorrhage. 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 Management as per neurology: * ASA 81mg PO daily * Crestor 10mg PO HS * Keppra 1,000mg IV Q12H Patient is currently not a great candidate for cardiac catherization due to current clinically status All plans and management discussed with Dr. Ramirez Status: Acute <Sushil Ramirez - Last Filed: 03/15/18 22:50> Objective - Vital Signs/Intake and Output Vital Signs (last 24 hours): Temp Pulse Resp BP Pulse Ox 99.1 F 83 14 91/51 L 100 03/15/18 20:00 03/15/18 22:00 03/15/18 22:00 03/15/18 21:57 03/15/18 22:00 Intake and Output: 03/15/18 03/16/18 18:59 06:59 Intake Total 1740.2 818.8 Output Total 540 200 Balance 1200.2 618.8 - Medications Medications: Current Medications Aspirin (Aspirin Chewable) 81 mg PO DAILY [facility] Last Admin: 03/15/18 09:36 Dose: 81 mg Vancomycin/Sodium Chloride (Vancomycin 1 Gm/Ns 200 Ml) 1 gm in 200 mls @ 133.333 mls/hr IVPB Q12H [facility] PRN Reason: Protocol Stop: 03/19/18 16:01 Last Admin: 03/15/18 15:00 Dose: 133.333 mls/hr Fentanyl Citrate 2,500 mcg/ (Sodium Chloride) 250 mls @ 12.97 mls/hr IV .[id number] [facility]; 2 MCG/KG/HR PRN Reason: Protocol Last Admin: 03/14/18 12:10 Dose: 1 mcg/kg/hr, 6.48 mls/hr Sodium Chloride (Sodium Chloride 0.9%) 1,000 mls @ 125 mls/hr IV .Q8H [facility] Last Admin: 03/15/18 16:53 Dose: 125 mls/hr Meropenem 1 gm/ Sodium (Chloride) 100 mls @ 100 mls/hr IVPB Q8H [facility] PRN Reason: Protocol Last Admin: 03/15/18 16:23 Dose: 100 mls/hr Levetiracetam 500 mg/ Dextrose 105 mls @ 420 mls/hr IVPB Q12H [facility] Norepinephrine Bitartrate 4 mg (/ Sodium Chloride) 254 mls @ 15.24 mls/hr IV .[id number] PRN; Protocol; 4 MCG/MIN PRN Reason: TITRATE PER MD ORDER Last Titration: 03/15/18 20:22 Dose: 4 mcg/min, 15.24 mls/hr Amikacin Sulfate 750 mg/ (Sodium Chloride) 103 mls @ 100 mls/hr IV ONCE ONE PRN Reason: Protocol Stop: 03/15/18 23:01 Last Admin: 03/15/18 21:42 Dose: 100 mls/hr Pantoprazole Sodium (Protonix Inj) 40 mg IVP DAILY [facility] Last Admin: 03/15/18 09:36 Dose: 40 mg Rosuvastatin Calcium (Crestor) 10 mg PO HS [facility] Last Admin: 03/15/18 21:42 Dose: 10 mg Tamsulosin HCl (Flomax) 0.4 mg PO DAILY [facility] Last Admin: 03/15/18 09:36 Dose: 0.4 mg Valproate Sodium (Depakene Oral Soln) 500 mg PO BID [facility] Last Admin: 03/15/18 17:32 Dose: 500 mg - Labs Labs: 03/15/18 06:18 03/15/18 06:16 PT 17.4 SECONDS (9.7-12.2) H 03/14/18 09:30 INR 1.6 03/14/18 09:30 APTT 31 SECONDS (21-34) 03/14/18 09:30 Assessment and Plan - Assessment and Plan (Free Text) Assessment: Patient seen and evaluated personally by oh Plan of care d/w the medical office supervisor and as documented
--- NOTE | 2018-03-15 18:20 | PCM.PROC ---
Procedures Attestation:: I certify that I have explained the specified Operation(s) or Procedure(s), risks, benefits and reasonable alternatives to the Patient and/or other person responsible. The opportunity was given to ask questions and all questions answered - Central Line Placement Right Internal Jugular Triple Lumen Catheter Aseptic technique was employed throughout the procedure: Hand Hygiene done prior to procedure, Full sterile barriers (mask, hair cover, sterile gown, sterile gloves), Full body sterile drape, Chloraprep Antiseptic: 30 second prep for IJ or SC sites CVP Time Out Performed: Yes Pt. Placed on Pulse Ox Monitor: Yes Central Line Prep: Chlorhexidine-Alcohol Combination Local Anesthesia Used: Lidocaine 1% Amount of Anesthesia Used (mls): 3 Ultrasound Used for Placement: Yes Central Line Lumen Inserted: triple Central Line Length: 16 cm Post Procedure: Sutured in Place, Good Blood Return, All Ports Aspirated, Flushed, Capped, Sterile Dressing Applied Secured by: Suture Post procedure dressing: Chlorhexidine disc (Biopatch) Post Procedure X-Ray: Yes Patient Tolerated Procedure: Well
--- NOTE | 2018-03-15 18:33 | PQF ---
PROVIDER RESPONSE TEXT: Pneumonia in the setting of sepsis and CVA with resp. distress and desaturation treated with Meropene m IV, Vancomycin IV REVIEWER QUERY TEXT: Clarification of Clinical Diagnostic Findings Please clarify documentation or clinical relevance for the clinical / diagnostic findings or whether those are insignificant or unable to be further specified. Pneumonia in the setting of sepsis and CVA with resp. distress and desaturation treated with Meropen em IV, Vancomycin IV -Other Explanation - Unable to Determine The patient's Clinical Indicators include: Clinical Findings: AMS .,O2 Desaturation,respiratory distress with accessory muscle use. CXR showin g Patchy bilateral air space opacities, New patchy opacity at the left lung base. Tiny left pleural effusion. Treatment: Meropenem IV, Vancomycin IV Risk factor: Immunocompromised Query created by: Cathy Eddy on 03/14/2018 5:39 PM Electronically signed by: Liborio Hunter MD 03/15/2018 6:30 PM
--- NOTE | 2018-03-15 21:20 | CP.PCM.PN ---
Subjective - Date & Time of Evaluation Date of Evaluation: 03/15/18 Time of Evaluation: 17:40 - Subjective Subjective: dictated Objective - Vital Signs/Intake and Output Vital Signs (last 24 hours): Temp Pulse Resp BP Pulse Ox 99.1 F 88 14 78/44 L 100 03/15/18 20:00 03/15/18 20:17 03/15/18 20:17 03/15/18 20:17 03/15/18 20:17 Intake and Output: 03/15/18 03/16/18 18:59 06:59 Intake Total 1740.2 388.4 Output Total 540 95 Balance 1200.2 293.4 - Medications Medications: Current Medications Aspirin (Aspirin Chewable) 81 mg PO DAILY [facility] Last Admin: 03/15/18 09:36 Dose: 81 mg Vancomycin/Sodium Chloride (Vancomycin 1 Gm/Ns 200 Ml) 1 gm in 200 mls @ 133.333 mls/hr IVPB Q12H GHANSHYAM PRN Reason: Protocol Stop: 03/19/18 16:01 Last Admin: 03/15/18 15:00 Dose: 133.333 mls/hr Fentanyl Citrate 2,500 mcg/ (Sodium Chloride) 250 mls @ 12.97 mls/hr IV .[id number] GHANSHYAM; 2 MCG/KG/HR PRN Reason: Protocol Last Admin: 03/14/18 12:10 Dose: 1 mcg/kg/hr, 6.48 mls/hr Sodium Chloride (Sodium Chloride 0.9%) 1,000 mls @ 125 mls/hr IV .Q8H [facility] Last Admin: 03/15/18 16:53 Dose: 125 mls/hr Meropenem 1 gm/ Sodium (Chloride) 100 mls @ 100 mls/hr IVPB Q8H [facility]SH[facility] PRN Reason: Protocol Last Admin: 03/15/18 16:23 Dose: 100 mls/hr Levetiracetam 500 mg/ Dextrose 105 mls @ 420 mls/hr IVPB Q12H [facility]AN[facility] Norepinephrine Bitartrate 4 mg (/ Sodium Chloride) 254 mls @ 15.24 mls/hr IV .[id number] PRN; Protocol; 4 MCG/MIN PRN Reason: TITRATE PER MD ORDER Last Titration: 03/15/18 20:22 Dose: 4 mcg/min, 15.24 mls/hr Pantoprazole Sodium (Protonix Inj) 40 mg IVP DAILY [facility] Last Admin: 03/15/18 09:36 Dose: 40 mg Rosuvastatin Calcium (Crestor) 10 mg PO HS [facility] Last Admin: 03/14/18 23:40 Dose: 10 mg Tamsulosin HCl (Flomax) 0.4 mg PO DAILY [facility] Last Admin: 03/15/18 09:36 Dose: 0.4 mg Valproate Sodium (Depakene Oral Soln) 500 mg PO BID [facility] Last Admin: 03/15/18 17:32 Dose: 500 mg - Labs Labs: 03/15/18 06:18 03/15/18 06:16 PT 17.4 SECONDS (9.7-12.2) H 03/14/18 09:30 INR 1.6 03/14/18 09:30 APTT 31 SECONDS (21-34) 03/14/18 09:30
--- NOTE | 2018-03-15 22:35 | CARD ---
APPROVED REPORT Date of service: 03/15/2018 EXAM: Two-dimensional and M-mode echocardiogram with Doppler and color Doppler. Other Information Quality : LimitedRhythm : INDICATION Syncope Congestive Heart Failure COPD RISK FACTORS Hypertension 2D DIMENSIONS IVSd0.8 (0.7-1.1cm)LVDd3.0 (3.9-5.9cm) PWd1.0 (0.7-1.1cm)LVDs2.1 (2.5-4.0cm) FS (%) 29.3 %LVEF (%)57.8 (>50%) Mitral Valve MV E Owiqinhn50.3cm/sMV A Sdpmodpp33.1cm/sE/A ratio0.7 TDI E/Lateral E'0.0E/Medial E'0.0 Tricuspid Valve TR Peak Zeddpsbn283lm/sTR Peak Gr.[id number] LEFT VENTRICLE The left ventricle is normal size. There is normal left ventricular wall thickness. suboptimal study, poor acoustic window Left ventricle systolic function is normal. The Ejection Fraction is >70%. There is normal LV segmental wall motion. Transmitral Doppler flow pattern is Grade I-abnormal relaxation pattern. There is no ventricular septal defect visualized. RIGHT VENTRICLE The right ventricle is not well visualized. The right ventricle is mildly dilated. The right ventricular systolic function is normal. ATRIA The left atrium is mildly dilated. The right atrium is mildly dilated. AORTIC VALVE The aortic valve is mildly sclerotic. The aortic valve is probably tri-cuspid. No aortic regurgitation is present. There is no aortic valvular stenosis. MITRAL VALVE The mitral valve is normal in structure. There is no evidence of mitral valve prolapse. There is no mitral valve regurgitation noted. TRICUSPID VALVE The tricuspid valve is normal in structure. There is moderate tricuspid regurgitation. Right ventricular systolic pressure is estimated at greater than 60 mmHg. There is severe pulmonary hypertension. PULMONIC VALVE The pulmonic valve is not well visualized. There is no pulmonic valvular regurgitation. GREAT VESSELS The aortic root is normal in size. The ascending aorta is normal in size. The IVC is dilated. PERICARDIAL EFFUSION There is no pericardial effusion. <Conclusion> suboptimal study, poor acoustic window Left ventricle systolic function is normal. The Ejection Fraction is >70%. Transmitral Doppler flow pattern is Grade I-abnormal relaxation pattern. There is severe pulmonary hypertension. The IVC is dilated.
--- NOTE | 2018-03-15 22:42 | CP.PCM.PN ---
Objective - Vital Signs/Intake and Output Vital Signs (last 24 hours): Temp Pulse Resp BP Pulse Ox 99.1 F 83 14 91/51 L 100 03/15/18 20:00 03/15/18 22:00 03/15/18 22:00 03/15/18 21:57 03/15/18 22:00 Intake and Output: 03/15/18 03/16/18 18:59 06:59 Intake Total 1740.2 818.8 Output Total 540 200 Balance 1200.2 618.8 - Medications Medications: Current Medications Aspirin (Aspirin Chewable) 81 mg PO DAILY REPLACED BY [facility] Last Admin: 03/15/18 09:36 Dose: 81 mg Vancomycin/Sodium Chloride (Vancomycin 1 Gm/Ns 200 Ml) 1 gm in 200 mls @ 133.333 mls/hr IVPB Q12H GHANSH[facility] PRN Reason: Protocol Stop: 03/19/18 16:01 Last Admin: 03/15/18 15:00 Dose: 133.333 mls/hr Fentanyl Citrate 2,500 mcg/ (Sodium Chloride) 250 mls @ 12.97 mls/hr IV .[id number] GHANSHYAM; 2 MCG/KG/HR PRN Reason: Protocol Last Admin: 03/14/18 12:10 Dose: 1 mcg/kg/hr, 6.48 mls/hr Sodium Chloride (Sodium Chloride 0.9%) 1,000 mls @ 125 mls/hr IV .Q8H [facility] Last Admin: 03/15/18 16:53 Dose: 125 mls/hr Meropenem 1 gm/ Sodium (Chloride) 100 mls @ 100 mls/hr IVPB Q8H [facility] PRN Reason: Protocol Last Admin: 03/15/18 16:23 Dose: 100 mls/hr Levetiracetam 500 mg/ Dextrose 105 mls @ 420 mls/hr IVPB Q12H [facility] Norepinephrine Bitartrate 4 mg (/ Sodium Chloride) 254 mls @ 15.24 mls/hr IV .[id number] PRN; Protocol; 4 MCG/MIN PRN Reason: TITRATE PER MD ORDER Last Titration: 03/15/18 20:22 Dose: 4 mcg/min, 15.24 mls/hr Amikacin Sulfate 750 mg/ (Sodium Chloride) 103 mls @ 100 mls/hr IV ONCE ONE PRN Reason: Protocol Stop: 03/15/18 23:01 Last Admin: 03/15/18 21:42 Dose: 100 mls/hr Pantoprazole Sodium (Protonix Inj) 40 mg IVP DAILY REPLACED BY [facility] Last Admin: 03/15/18 09:36 Dose: 40 mg Rosuvastatin Calcium (Crestor) 10 mg PO HS REPLACED BY [facility] Last Admin: 03/15/18 21:42 Dose: 10 mg Tamsulosin HCl (Flomax) 0.4 mg PO DAILY REPLACED BY [facility] Last Admin: 03/15/18 09:36 Dose: 0.4 mg Valproate Sodium (Depakene Oral Soln) 500 mg PO BID REPLACED BY [facility] Last Admin: 03/15/18 17:32 Dose: 500 mg - Labs Labs: 03/15/18 06:18 03/15/18 06:16 PT 17.4 SECONDS (9.7-12.2) H 03/14/18 09:30 INR 1.6 03/14/18 09:30 APTT 31 SECONDS (21-34) 03/14/18 09:30
[2018-03-16] MEDS: Sodium Chloride 0.9% 1,000 ML IV SCH ×3 (00:38→12:00)
[2018-03-16] MEDS: Meropenem 1 GM in Sodium Chloride 0.9% 100 ML IVPB SCH ×3 (00:38→16:00)
--- NOTE | 2018-03-16 01:28 | PN ---
DATE: 03/15/2018 SUBJECTIVE: The patient was seen today. He remains intubated and he is on vasopressors as he was hypotensive. PHYSICAL EXAMINATION: VITAL SIGNS: T-max is 99.1, blood pressure remains on 78/44, respirations are 15. HEENT: Head is atraumatic, normocephalic. He is intubated. NECK: Supple. LUNGS: Have decreased breath sounds bilaterally. HEART: S1, S2 is present. ABDOMEN: Soft, nontender. No guarding, no rigidity present. He got a new IJ catheter today. EXTREMITIES: Remain without edema. LABORATORY DATA: He had a new stroke according to the CAT scan. He has no . He remains hypotensive. Labs are noted. White count is 11.3, hemoglobin 9.4, hematocrit 29.3, platelet count is 139. His neutrophils are 82 and bands are 1. ABG is noted. Chemistry shows BUN 13, creatinine 0.7, sodium 144, potassium 3.5, CO2 is 21. MEDICATIONS: He is on aspirin, fentanyl, he is on Keppra, meropenem, Levophed, Protonix, Crestor, sodium, tamsulosin, valproic acid, he is on vancomycin. ASSESSMENT AND PLAN: So, at this time, since he remains hypotensive, cultures are negative so far, sputum is pending, urine also did not grow anything. Chest x-ray was done and chest x-ray shows no adverse finding, no pneumothorax, right IJ placement, remaining support apparatus stable, no interval change. So since he is hypotensive, I am going to give him one dose of amikacin any today and see how he responds to it and we will follow. Jayshree England MD
[2018-03-16] MEDS: Vancomycin 1 gm/NS 200 ml 1 GM/200 ML BAG IVPB SCH ×2 (03:51→16:00)
[2018-03-16 05:54] LABS: ABG ALLEN TEST POS; ARTERIAL BLOOD GAS HCO3 22.7 mmol/L (21-28); ARTERIAL BLOOD GAS O2 SAT 99.9 % (95-98); ARTERIAL BLOOD GAS PCO2 37 mm/Hg (35-45); ARTERIAL BLOOD GAS PH 7.38 (7.35-7.45); ARTERIAL BLOOD GAS PO2 210 mm/Hg (80-100)
[2018-03-16 06:29] LABS: BASO # 0.1 K/uL (0.0-0.2); BASO % 0.3 % (0.0-2.0); EOS # 0.2 K/uL (0.0-0.7); EOS % 1.1 % (0.0-4.0); HEMOGLOBIN 9.8 g/dL (12.0-18.0); LYMPH % 6.1 % (20.0-40.0); MEAN CELL VOLUME 84.3 fL (80.0-94.0); MEAN CORPUSCULAR HGB CONC 32.1 g/dL (33.0-37.0); MEAN PLATELET VOLUME 10.6 fL (7.2-11.7); MONO # 1.8 K/uL (0.0-0.8); MONO % 11.6 % (0.0-10.0); NEUT # 12.8 K/uL (1.8-7.0); NEUT % 80.9 % (50.0-75.0); NRBC % 0.1 % (0.0-2.0); PLATELET COUNT 175 K/uL (130-400); RBC 3.61 Mil/uL (4.40-5.90); RED CELL DISTRIBUTION WIDTH 16.5 % (11.5-14.5); WHITE BLOOD COUNT 15.8 K/uL (4.8-10.8)
[2018-03-16 06:42] LABS: ALB/GLOB RATIO 0.7 (1.0-2.1); ALBUMIN 2.1 g/dL (3.5-5.0); ALT/SGPT 23 U/L (21-72); AST/SGOT 57 U/L (17-59); BLOOD UREA NITROGEN 11 mg/dL (9-20); GFR NON-AFRICAN AMERICAN > 60
[2018-03-16 08:47] LABS: ANISOCYTOSIS SLIGHT; EOSINOPHIL 1 % (0-4); HYPOCHROMIC SLIGHT; LYMPHOCYTE 5 % (20-40); MONOCYTE 10 % (0-10); NEUTROPHIL 84 % (50-75); OVALOCYTES SLIGHT; PLATELET ESTIMATE NORMAL (NORMAL); TOTAL CELLS COUNTED 100
[2018-03-16] MEDS ORDERED: Potassium Phosphate 15 MMOLE in Sodium Chloride 0.9% 250 ML IVPB ONE (09:00)
[2018-03-16] MEDS: Valproic Acid 250 mg/5 ml UD Cup PO SCH ×2 (09:04→17:49)
--- NOTE | 2018-03-16 10:15 | PN ---
DATE: 03/15/2018 SUBJECTIVE: The patient is on ventilator. He is not responsive. He is afebrile. His blood pressure is on the lower side. He has been by Neurology. PHYSICAL EXAMINATION: VITAL SIGNS: BP 91/51, pulse 83, respiratory rate 20, temperature 98. LUNGS: Bilateral transmitted breath sounds. CARDIOVASCULAR: S1 and S2, regular. ABDOMEN: Soft. CENTRAL NERVOUS SYSTEM: Unresponsive. ASSESSMENT: 1. Cerebrovascular event. 2. Coronary artery disease. 3. Rule out sepsis. PLAN: Continue ventilator. Follow up cultures. Monitor patient. Liborio Hunter MD
--- NOTE | 2018-03-16 11:33 | RAD ---
Date of service: 03/16/2018 HISTORY: vent/ff up COMPARISON: 03/15/2018 FINDINGS: LUNGS: Vague low-density irregular opacity perceived over left mid lung zone and medial left scapula. A interval infiltrate here is a consideration. The fluid and/or thickening in the lateral right minor fissure is as before. Interval improved aeration of the prior subsegmental atelectasis at the left lung base. No worsening effusion suggested. The chronic asymmetrically elevated left costophrenic angle is renoted. PLEURA: No interval significant pleural effusion identified, no pneumothorax apparent. CARDIOVASCULAR: Minimal cardiomegaly. No significant pulmonary venous congestion appreciated. OSSEOUS STRUCTURES: Thoraco lumbar spondylosis. VISUALIZED UPPER ABDOMEN: Normal. OTHER FINDINGS: Endotracheal tube tip approximately 2 to 3 cm from the aline -satisfactory. Right internal jugular vein central line insertion projection with tip in superior vena cava -similar. NG tube tip in stomach as before. IMPRESSION: Interval vague opacity left mid lung zone -a developing patchy infiltrate here is a consideration. The atelectasis at the left lung base has largely cleared. Other findings as above. Support apparatus satisfactory.
--- NOTE | 2018-03-16 14:31 | CP.CCUPN ---
<Nitin Cunha - Last Filed: 03/16/18 16:05> CCU Subjective - Physician Review Subjective (Free Text): Critical Care Progress Note: Pt seen and examined at bedside. No acute events overnight. Patient is intubated and sedated on fentanyl ggt. No levophed @ 6mcq. 12 Point ROS Limited 2/2 intubation. CCU Objective - Vital Signs / Intake & Output Vital Signs (Last 4 hours): Vital Signs Pulse Resp BP Pulse Ox 03/16/18 14:00 85 15 98 03/16/18 13:57 82 14 109/61 99 03/16/18 13:37 82 12 103/57 L 99 03/16/18 13:17 80 8 L 104/59 L 99 03/16/18 13:00 80 11 L 100 03/16/18 12:57 78 16 110/61 100 03/16/18 12:37 79 10 L 103/62 100 03/16/18 12:17 80 14 104/60 100 03/16/18 12:00 92 H 12 100 03/16/18 11:57 79 14 101/58 L 100 03/16/18 11:37 81 13 102/58 L 100 03/16/18 11:17 90 14 97/57 L 100 03/16/18 11:00 84 11 L 100 03/16/18 10:57 85 11 L 99/58 L 100 03/16/18 10:37 87 11 L 92/51 L 100 03/16/18 10:29 89 12 94/50 L 100 Intake and Output (Last 8hrs): Intake & Output 03/15/18 03/16/18 03/16/18 22:59 06:59 14:59 Intake Total 1484.0 1901.8 1984.9 Output Total 380 395 495 Balance 1104.0 1506.8 1489.9 Weight 131 lb Intake: IV 58 116 320 Intake, IV Amount 1226.0 1550.8 1394.9 Left Wrist 525 400 Right Distal Port 625 1000 950 Internal Jugular Right Medial Port 76.0 150.8 180.0 Internal Jugular Right Proximal Port 255.0 Internal Jugular Right Wrist 9.9 Oral 0 0 0 Tube Feeding 200 235 270 Output: Urine 380 395 495 Urethral (Hawk) 380 395 495 Other: # Bowel Movements 0 0 0 - Physical Exam Head: Positive for: Atraumatic, Normocephalic Pupils: Positive for: PERRL Mouth: Positive for: Moist Mucous Membranes Respiratory/Chest: Positive for: Clear to Auscultation. Negative for: Wheezes, Rales Cardiovascular: Positive for: Regular Rate and Rhythm, Normal S1, S2 Abdomen: Positive for: Normal Bowel Sounds. Negative for: Tenderness, Distention Upper Extremity: Negative for: Cyanosis, Edema Lower Extremity: Negative for: Edema, CALF TENDERNESS Neurological: Positive for: CN II-XII Intact, Other (On fentanyl, Withdraws to pain on the L side ext) Skin: Positive for: Warm, Dry Psychiatric: Negative for: Alert - Medications Active Medications: Active Medications Generic Name Dose Route Start Last Admin Trade Name Freq PRN Reason Stop Dose Admin Aspirin 81 mg 03/15/18 10:00 03/16/18 09:04 Aspirin Chewable PO 81 mg DAILY GHANSHYAM Administration Vancomycin/Sodium Chloride 1 gm in 200 mls @ 133.333 mls/hr 03/14/18 16:00 03:51 Vancomycin 1 Gm/Ns 200 Ml IVPB 03/19/18 16:01 133.333 mls/hr Q12H GHANSHYAM Administration Protocol Fentanyl Citrate 2,500 mcg/ 250 mls @ 12.97 mls/hr 03/14/18 15:15 03/16/18 11 :00 Sodium Chloride IV 0 mcg/kg/hr .[id number] GHANSHYAM 0 mls/hr Protocol Titration 2 MCG/KG/HR Meropenem 1 gm/ Sodium 100 mls @ 100 mls/hr 03/14/18 17:00 03/16/18 09:00 Chloride IVPB 100 mls/hr Q8H GHANSHYAM Administration Protocol Levetiracetam 500 mg/ Dextrose 105 mls @ 420 mls/hr 03/15/18 23:00 03/16/18 10:00 IVPB 420 mls/hr Q12H GHANSHYAM Administration Norepinephrine Bitartrate 4 mg 254 mls @ 15.24 mls/hr 03/15/18 15:53 08:00 / Sodium Chloride IV 6 mcg/min .[id number] PRN 22.86 mls/hr TITRATE PER MD ORDER Administration Protocol 4 MCG/MIN Potassium Phosphate 15 mmole/ 255 mls @ 42.5 mls/hr 03/16/18 09:00 03/16/18 08:58 Sodium Chloride IVPB 03/16/18 14:59 42.5 mls/hr ONCE ONE Administration Sodium Chloride 1,000 mls @ 70 mls/hr 03/16/18 11:49 03/16/18 12:00 Sodium Chloride 0.9% IV 70 mls/hr .[id number] GHANSHYAM Administration Pantoprazole Sodium 40 mg 03/15/18 10:00 03/16/18 09:04 Protonix Inj IVP 40 mg DAILY GHANSHYAM Administration Rosuvastatin Calcium 10 mg 03/14/18 22:00 03/15/18 21:42 Crestor PO 10 mg HS GHANSHYAM Administration Tamsulosin HCl 0.4 mg 03/15/18 10:00 03/16/18 09:04 Flomax PO 0.4 mg DAILY GHANSHYAM Administration Valproate Sodium 500 mg 03/15/18 10:00 03/16/18 09:04 Depakene Oral Soln PO 500 mg BID GHANSHYAM Administration - Patient Studies Lab Studies: Microbiology Studies 03/14/18 17:23 Gram Stain - Final Sputum Sputum Culture - Final NORMAL ORAL TAO 03/14/18 09:35 Blood Culture - Preliminary Blood NO GROWTH AFTER 48 HOURS 03/14/18 09:00 Blood Culture - Preliminary Blood NO GROWTH AFTER 48 HOURS 03/14/18 17:23 MRSA Culture (Admit) - Final Naris MRSA NOT DETECTED 03/14/18 09:33 Urine Culture - Final Urine,Hawk No Growth (<1,000 CFU/ML) Lab Studies 03/16/18 03/16/18 03/16/18 Range/Units 11:40 08:57 06:22 WBC 15.8 H (4.8-10.8) K/uL RBC 3.61 L (4.40-5.90) Mil/uL Hgb 9.8 L (12.0-18.0) g/dL Hct 30.4 L (35.0-51.0) % MCV 84.3 (80.0-94.0) fL MCH 27.0 (27.0-31.0) pg MCHC 32.1 L (33.0-37.0) g/dL RDW 16.5 H (11.5-14.5) % Plt Count 175 (130-400) K/uL MPV 10.6 (7.2-11.7) fL Neut % (Auto) 80.9 H (50.0-75.0) % Lymph % (Auto) 6.1 L (20.0-40.0) % [place] % (Auto) 11.6 H (0.0-10.0) % Eos % (Auto) 1.1 (0.0-4.0) % Baso % (Auto) 0.3 (0.0-2.0) % Neut # (Auto) 12.8 H (1.8-7.0) K/uL Lymph # (Auto) 1.0 (1.0-4.3) K/uL [place] # (Auto) 1.8 H (0.0-0.8) K/uL Eos # (Auto) 0.2 (0.0-0.7) K/uL Baso # (Auto) 0.1 (0.0-0.2) K/uL Neutrophils % (Manual) 84 H (50-75) % Lymphocytes % (Manual) 5 L (20-40) % Monocytes % (Manual) 10 (0-10) % Eosinophils % (Manual) 1 (0-4) % Platelet Estimate Normal (NORMAL) Hypochromasia (manual) Slight Anisocytosis (manual) Slight Ovalocytes Slight Puncture Site pCO2 (35-45) mm/Hg pO2 (80-100) mm/Hg HCO3 (21-28) mmol/L ABG pH (7.35-7.45) ABG Total CO2 (22-28) mmol/L ABG O2 Saturation (95-98) % ABG Base Excess (-2.0-3.0) mmol/L ABG Hemoglobin (11.7-17.4) g/dL ABG Carboxyhemoglobin (0.5-1.5) % POC ABG HHb (Measured) (0.0-5.0) % ABG Methemoglobin (0.0-3.0) % Joseph Test A-a O2 Difference mm/Hg Respiratory Index Hgb O2 Saturation (95.0-98.0) % Vent Mode Mechanical Rate FiO2 % Tidal Volume PEEP Sodium (132-148) mmol/L Potassium (3.6-5.2) mmol/L Chloride (98-107) mmol/L Carbon Dioxide (22-30) mmol/L Anion Gap (10-20) BUN (9-20) mg/dL Creatinine (0.8-1.5) mg/dL Est GFR ( Amer) Est GFR (Non-Af Amer) POC Glucose (mg/dL) 152 H (65-110) mg/dL Random Glucose (75-110) mg/dL Calcium (8.6-10.4) mg/dl Phosphorus (2.5-4.5) mg/dL Magnesium (1.6-2.3) mg/dL Total Bilirubin (0.2-1.3) mg/dL AST (17-59) U/L ALT (21-72) U/L Alkaline Phosphatase (38-126) U/L Total Protein (6.3-8.3) g/dL Albumin (3.5-5.0) g/dL Globulin (2.2-3.9) gm/dL Albumin/Globulin Ratio (1.0-2.1) Vancomycin Trough Cancelled Random Vancomycin 22.5 ug/mL 03/16/18 03/16/18 03/16/18 Range/Units 06:17 05:49 05:24 WBC (4.8-10.8) K/uL RBC (4.40-5.90) Mil/uL Hgb (12.0-18.0) g/dL Hct (35.0-51.0) % MCV (80.0-94.0) fL MCH (27.0-31.0) pg MCHC (33.0-37.0) g/dL RDW (11.5-14.5) % Plt Count (130-400) K/uL MPV (7.2-11.7) fL Neut % (Auto) (50.0-75.0) % Lymph % (Auto) (20.0-40.0) % [place] % (Auto) (0.0-10.0) % Eos % (Auto) (0.0-4.0) % Baso % (Auto) (0.0-2.0) % Neut # (Auto) (1.8-7.0) K/uL Lymph # (Auto) (1.0-4.3) K/uL [place] # (Auto) (0.0-0.8) K/uL Eos # (Auto) (0.0-0.7) K/uL Baso # (Auto) (0.0-0.2) K/uL Neutrophils % (Manual) (50-75) % Lymphocytes % (Manual) (20-40) % Monocytes % (Manual) (0-10) % Eosinophils % (Manual) (0-4) % Platelet Estimate (NORMAL) Hypochromasia (manual) Anisocytosis (manual) Ovalocytes Puncture Site L rad pCO2 37 (35-45) mm/Hg pO2 210 H (80-100) mm/Hg HCO3 22.7 (21-28) mmol/L ABG pH 7.38 (7.35-7.45) ABG Total CO2 23.0 (22-28) mmol/L ABG O2 Saturation 99.9 H (95-98) % ABG Base Excess -2.9 L (-2.0-3.0) mmol/L ABG Hemoglobin 10.0 L (11.7-17.4) g/dL ABG Carboxyhemoglobin 1.5 (0.5-1.5) % POC ABG HHb (Measured) 0.1 (0.0-5.0) % ABG Methemoglobin 1.4 (0.0-3.0) % Joseph Test Pos A-a O2 Difference 100.0 mm/Hg Respiratory Index 0.5 Hgb O2 Saturation 97.0 (95.0-98.0) % Vent Mode Prvc Mechanical Rate 14 FiO2 50.0 % Tidal Volume 500 PEEP 5 Sodium 145 (132-148) mmol/L Potassium 3.6 (3.6-5.2) mmol/L Chloride 117 H (98-107) mmol/L Carbon Dioxide 24 (22-30) mmol/L Anion Gap 7 L (10-20) BUN 11 (9-20) mg/dL Creatinine 0.8 (0.8-1.5) mg/dL Est GFR ( Amer) > 60 Est GFR (Non-Af Amer) > 60 POC Glucose (mg/dL) 132 H (65-110) mg/dL Random Glucose 126 H (75-110) mg/dL Calcium 8.0 L (8.6-10.4) mg/dl Phosphorus 2.0 L (2.5-4.5) mg/dL Magnesium 1.7 (1.6-2.3) mg/dL Total Bilirubin 0.4 (0.2-1.3) mg/dL AST 57 (17-59) U/L ALT 23 (21-72) U/L Alkaline Phosphatase 49 (38-126) U/L Total Protein 5.2 L (6.3-8.3) g/dL Albumin 2.1 L (3.5-5.0) g/dL Globulin 3.1 (2.2-3.9) gm/dL Albumin/Globulin Ratio 0.7 L (1.0-2.1) Vancomycin Trough Random Vancomycin ug/mL 03/15/18 03/15/18 03/15/18 Range/Units 23:20 17:50 11:14 WBC (4.8-10.8) K/uL RBC (4.40-5.90) Mil/uL Hgb (12.0-18.0) g/dL Hct (35.0-51.0) % MCV (80.0-94.0) fL MCH (27.0-31.0) pg MCHC (33.0-37.0) g/dL RDW (11.5-14.5) % Plt Count (130-400) K/uL MPV (7.2-11.7) fL Neut % (Auto) (50.0-75.0) % Lymph % (Auto) (20.0-40.0) % [place] % (Auto) (0.0-10.0) % Eos % (Auto) (0.0-4.0) % Baso % (Auto) (0.0-2.0) % Neut # (Auto) (1.8-7.0) K/uL Lymph # (Auto) (1.0-4.3) K/uL [place] # (Auto) (0.0-0.8) K/uL Eos # (Auto) (0.0-0.7) K/uL Baso # (Auto) (0.0-0.2) K/uL Neutrophils % (Manual) (50-75) % Lymphocytes % (Manual) (20-40) % Monocytes % (Manual) (0-10) % Eosinophils % (Manual) (0-4) % Platelet Estimate (NORMAL) Hypochromasia (manual) Anisocytosis (manual) Ovalocytes Puncture Site pCO2 (35-45) mm/Hg pO2 (80-100) mm/Hg HCO3 (21-28) mmol/L ABG pH (7.35-7.45) ABG Total CO2 (22-28) mmol/L ABG O2 Saturation (95-98) % ABG Base Excess (-2.0-3.0) mmol/L ABG Hemoglobin (11.7-17.4) g/dL ABG Carboxyhemoglobin (0.5-1.5) % POC ABG HHb (Measured) (0.0-5.0) % ABG Methemoglobin (0.0-3.0) % Joseph Test A-a O2 Difference mm/Hg Respiratory Index Hgb O2 Saturation (95.0-98.0) % Vent Mode Mechanical Rate FiO2 % Tidal Volume PEEP Sodium (132-148) mmol/L Potassium (3.6-5.2) mmol/L Chloride (98-107) mmol/L Carbon Dioxide (22-30) mmol/L Anion Gap (10-20) BUN (9-20) mg/dL Creatinine (0.8-1.5) mg/dL Est GFR ( Amer) Est GFR (Non-Af Amer) POC Glucose (mg/dL) 135 H 100 84 (65-110) mg/dL Random Glucose (75-110) mg/dL Calcium (8.6-10.4) mg/dl Phosphorus (2.5-4.5) mg/dL Magnesium (1.6-2.3) mg/dL Total Bilirubin (0.2-1.3) mg/dL AST (17-59) U/L ALT (21-72) U/L Alkaline Phosphatase (38-126) U/L Total Protein (6.3-8.3) g/dL Albumin (3.5-5.0) g/dL Globulin (2.2-3.9) gm/dL Albumin/Globulin Ratio (1.0-2.1) Vancomycin Trough Random Vancomycin ug/mL Laboratory Results - last 24 hr 03/15/18 03/15/18 03/15/18 11:14 17:50 23:20 WBC RBC Hgb Hct MCV MCH MCHC RDW Plt Count MPV Neut % (Auto) Lymph % (Auto) [place] % (Auto) Eos % (Auto) Baso % (Auto) Neut # (Auto) Lymph # (Auto) [place] # (Auto) Eos # (Auto) Baso # (Auto) Neutrophils % (Manual) Lymphocytes % (Manual) Monocytes % (Manual) Eosinophils % (Manual) Platelet Estimate Hypochromasia (manual) Anisocytosis (manual) Ovalocytes Puncture Site pCO2 pO2 HCO3 ABG pH ABG Total CO2 ABG O2 Saturation ABG Base Excess ABG Hemoglobin ABG Carboxyhemoglobin POC ABG HHb (Measured) ABG Methemoglobin Joseph Test A-a O2 Difference Respiratory Index Hgb O2 Saturation Vent Mode Mechanical Rate FiO2 Tidal Volume PEEP Sodium Potassium Chloride Carbon Dioxide Anion Gap BUN Creatinine Est GFR ( Amer) Est GFR (Non-Af Amer) POC Glucose (mg/dL) 84 100 135 H Random Glucose Calcium Phosphorus Magnesium Total Bilirubin AST ALT Alkaline Phosphatase Total Protein Albumin Globulin Albumin/Globulin Ratio Vancomycin Trough Random Vancomycin 03/16/18 03/16/18 03/16/18 05:24 05:49 06:17 WBC RBC Hgb Hct MCV MCH MCHC RDW Plt Count MPV Neut % (Auto) Lymph % (Auto) [place] % (Auto) Eos % (Auto) Baso % (Auto) Neut # (Auto) Lymph # (Auto) [place] # (Auto) Eos # (Auto) Baso # (Auto) Neutrophils % (Manual) Lymphocytes % (Manual) Monocytes % (Manual) Eosinophils % (Manual) Platelet Estimate Hypochromasia (manual) Anisocytosis (manual) Ovalocytes Puncture Site L rad pCO2 37 pO2 210 H HCO3 22.7 ABG pH 7.38 ABG Total CO2 23.0 ABG O2 Saturation 99.9 H ABG Base Excess -2.9 L ABG Hemoglobin 10.0 L ABG Carboxyhemoglobin 1.5 POC ABG HHb (Measured) 0.1 ABG Methemoglobin 1.4 Joseph Test Pos A-a O2 Difference 100.0 Respiratory Index 0.5 Hgb O2 Saturation 97.0 Vent Mode Prvc Mechanical Rate 14 FiO2 50.0 Tidal Volume 500 PEEP 5 Sodium 145 Potassium 3.6 Chloride 117 H Carbon Dioxide 24 Anion Gap 7 L BUN 11 Creatinine 0.8 Est GFR ( Amer) > 60 Est GFR (Non-Af Amer) > 60 POC Glucose (mg/dL) 132 H Random Glucose 126 H Calcium 8.0 L Phosphorus 2.0 L Magnesium 1.7 Total Bilirubin 0.4 AST 57 ALT 23 Alkaline Phosphatase 49 Total Protein 5.2 L Albumin 2.1 L Globulin 3.1 Albumin/Globulin Ratio 0.7 L Vancomycin Trough Random Vancomycin 03/16/18 03/16/18 03/16/18 06:22 08:57 11:40 WBC 15.8 H RBC 3.61 L Hgb 9.8 L Hct 30.4 L MCV 84.3 MCH 27.0 MCHC 32.1 L RDW 16.5 H Plt Count 175 MPV 10.6 Neut % (Auto) 80.9 H Lymph % (Auto) 6.1 L [place] % (Auto) 11.6 H Eos % (Auto) 1.1 Baso % (Auto) 0.3 Neut # (Auto) 12.8 H Lymph # (Auto) 1.0 [place] # (Auto) 1.8 H Eos # (Auto) 0.2 Baso # (Auto) 0.1 Neutrophils % (Manual) 84 H Lymphocytes % (Manual) 5 L Monocytes % (Manual) 10 Eosinophils % (Manual) 1 Platelet Estimate Normal Hypochromasia (manual) Slight Anisocytosis (manual) Slight Ovalocytes Slight Puncture Site pCO2 pO2 HCO3 ABG pH ABG Total CO2 ABG O2 Saturation ABG Base Excess ABG Hemoglobin ABG Carboxyhemoglobin POC ABG HHb (Measured) ABG Methemoglobin Joseph Test A-a O2 Difference Respiratory Index Hgb O2 Saturation Vent Mode Mechanical Rate FiO2 Tidal Volume PEEP Sodium Potassium Chloride Carbon Dioxide Anion Gap BUN Creatinine Est GFR ( Amer) Est GFR (Non-Af Amer) POC Glucose (mg/dL) 152 H Random Glucose Calcium Phosphorus Magnesium Total Bilirubin AST ALT Alkaline Phosphatase Total Protein Albumin Globulin Albumin/Globulin Ratio Vancomycin Trough Cancelled Random Vancomycin 22.5 Assessment/Plan - Assessment and Plan (Free Text) Assessment: 73 year old male with history of HTN, HLD, BPH, schizophrenia, CKD, CHF, dementia who was sent in for [facility] for AMS. CT brain found to have large left MCA infarct with elevated troponins. Neuro: -Repeat CT head now -Sedated on Fentanyl ggt -Wean sedation as tolerated -EEG yesterday did not show any active seizures -CT brain shows Large acute left MCA territory infarct as detailed above. No hemorrhage. 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 extending into the petrous cavernous and supraclinoid segments -Neuro consulted, help appreciated- Increased dose of Keppra and Depakote, and stat CT head -Ethics committee consulted for recs -Cont Keppra and Depakote Pulm: -Intubated on PRVC -Wean as tolerated -CXR today - patchy atalectasis vs infiltrate with minimal L pleural effusion -Wean as tolerated -Maintain SPO2 > 92% CV: - Currently on Levo ggt at 6mcq - Echo shows EF of 70%, severe pulm HTN -Cardiology consulted, help appreciated - not a candidate for cardiac cath at this time -Cont Crestor 10mg PO HS and ASA 81mg PO -maintain MAP > 65 -Troponins 1.31--> 1.65 --> 1.65 -proBNP 7420 GI: -tube feeds -Protonix 40mg IVP Renal: -Monitor I and O -Replete electrolytes as needed -NS IV fluids @ 125cc/hr IV -Flomax 0.4mg PO -Continue to monitor electrolyte, replete as needed Endo: -Maintain euglycemia ID: -UA: pos, WBC 15.8 -Currently on Vancomycin and daysi -ID Dr. England consulted, help appreciated -f/u sepic work up Heme: -H/H stable -Cont to monitor PPX: Protonix, and SCDs Patients friends, Moody Friedman, at bedside. He is named under POL to make decisions for the patient in the event the patient is not able to do so. However he does not want to take the responsibility and not comfortable making any decisions for the patient at this time. He reports patient has some distant cousins in [place] and [place] that are not involved in his care. He does not know their contact. Will cont to monitor. Case and plan was reviewed and discussed in detail with Dr Ramos. <Wilton Ramos - Last Filed: 03/16/18 17:55> CCU Objective - Vital Signs / Intake & Output Vital Signs (Last 4 hours): Vital Signs Temp Pulse Resp BP Pulse Ox 03/16/18 15:43 99.9 F H 100 03/16/18 14:00 85 15 98 03/16/18 13:57 82 14 109/61 99 Intake and Output (Last 8hrs): Intake & Output 03/16/18 03/16/18 03/16/18 06:59 14:59 22:59 Intake Total 1901.8 1984.9 Output Total 395 495 Balance 1506.8 1489.9 Weight 131 lb Intake: IV 116 320 Intake, IV Amount 1550.8 1394.9 Left Wrist 400 Right Distal Port 1000 950 Internal Jugular Right Medial Port 150.8 180.0 Internal Jugular Right Proximal Port 255.0 Internal Jugular Right Wrist 9.9 Oral 0 0 Tube Feeding 235 270 Output: Urine 395 495 Urethral (Hawk) 395 495 Other: # Bowel Movements 0 0 - Medications Active Medications: Active Medications Generic Name Dose Route Start Last Admin Trade Name Freq PRN Reason Stop Dose Admin Acetaminophen 650 mg 03/16/18 17:31 Tylenol 650mg/20.3ml Solution Ud NG Q6 PRN Fever Aspirin 81 mg 03/15/18 10:00 03/16/18 09:04 Aspirin Chewable PO 81 mg DAILY GHANSHYAM Administration Vancomycin/Sodium Chloride 1 gm in 200 mls @ 133.333 mls/hr 03/14/18 16:00 16:00 Vancomycin 1 Gm/Ns 200 Ml IVPB 03/19/18 16:01 133.333 mls/hr Q12H GHANSHYAM Administration Protocol Fentanyl Citrate 2,500 mcg/ 250 mls @ 12.97 mls/hr 03/14/18 15:15 03/16/18 11 :00 Sodium Chloride IV 0 mcg/kg/hr .[id number] GHANSHYAM 0 mls/hr Protocol Titration 2 MCG/KG/HR Meropenem 1 gm/ Sodium 100 mls @ 100 mls/hr 03/14/18 17:00 03/16/18 16:00 Chloride IVPB 100 mls/hr Q8H GHANSHYAM Administration Protocol Norepinephrine Bitartrate 4 mg 254 mls @ 15.24 mls/hr 03/15/18 15:53 08:00 / Sodium Chloride IV 6 mcg/min .[id number] PRN 22.86 mls/hr TITRATE PER MD ORDER Administration Protocol 4 MCG/MIN Sodium Chloride 1,000 mls @ 70 mls/hr 03/16/18 11:49 03/16/18 12:00 Sodium Chloride 0.9% IV 70 mls/hr .[id number] GHANSHYAM Administration Levetiracetam 1,000 mg/ 110 mls @ 420 mls/hr 03/16/18 15:30 09/13/18 15:30 Dextrose IVPB 420 mls/hr Q12H GHANSHYAM Administration Pantoprazole Sodium 40 mg 03/15/18 10:00 03/16/18 09:04 Protonix Inj IVP 40 mg DAILY GHANSHYAM Administration Rosuvastatin Calcium 10 mg 03/14/18 22:00 03/15/18 21:42 Crestor PO 10 mg HS GHANSHYAM Administration Tamsulosin HCl 0.4 mg 03/15/18 10:00 03/16/18 09:04 Flomax PO 0.4 mg DAILY GHANSHYAM Administration Valproate Sodium 1,000 mg 03/16/18 14:34 03/16/18 17:49 Depakene Oral Soln PO 1,000 mg BID GHANSHYAM Administration - Patient Studies Lab Studies: Microbiology Studies 03/14/18 17:23 Gram Stain - Final Sputum Sputum Culture - Final NORMAL ORAL TAO 03/14/18 09:35 Blood Culture - Preliminary Blood NO GROWTH AFTER 48 HOURS 03/14/18 09:00 Blood Culture - Preliminary Blood NO GROWTH AFTER 48 HOURS 03/14/18 17:23 MRSA Culture (Admit) - Final Naris MRSA NOT DETECTED 03/14/18 09:33 Urine Culture - Final Urine,Hawk No Growth (<1,000 CFU/ML) Lab Studies 03/16/18 03/16/18 03/16/18 Range/Units 17:37 11:40 08:57 WBC (4.8-10.8) K/uL RBC (4.40-5.90) Mil/uL Hgb (12.0-18.0) g/dL Hct (35.0-51.0) % MCV (80.0-94.0) fL MCH (27.0-31.0) pg MCHC (33.0-37.0) g/dL RDW (11.5-14.5) % Plt Count (130-400) K/uL MPV (7.2-11.7) fL Neut % (Auto) (50.0-75.0) % Lymph % (Auto) (20.0-40.0) % [place] % (Auto) (0.0-10.0) % Eos % (Auto) (0.0-4.0) % Baso % (Auto) (0.0-2.0) % Neut # (Auto) (1.8-7.0) K/uL Lymph # (Auto) (1.0-4.3) K/uL [place] # (Auto) (0.0-0.8) K/uL Eos # (Auto) (0.0-0.7) K/uL Baso # (Auto) (0.0-0.2) K/uL Neutrophils % (Manual) (50-75) % Lymphocytes % (Manual) (20-40) % Monocytes % (Manual) (0-10) % Eosinophils % (Manual) (0-4) % Platelet Estimate (NORMAL) Hypochromasia (manual) Anisocytosis (manual) Ovalocytes Puncture Site pCO2 (35-45) mm/Hg pO2 (80-100) mm/Hg HCO3 (21-28) mmol/L ABG pH (7.35-7.45) ABG Total CO2 (22-28) mmol/L ABG O2 Saturation (95-98) % ABG Base Excess (-2.0-3.0) mmol/L ABG Hemoglobin (11.7-17.4) g/dL ABG Carboxyhemoglobin (0.5-1.5) % POC ABG HHb (Measured) (0.0-5.0) % ABG Methemoglobin (0.0-3.0) % Joseph Test A-a O2 Difference mm/Hg Respiratory Index Hgb O2 Saturation (95.0-98.0) % Vent Mode Mechanical Rate FiO2 % Tidal Volume PEEP Sodium (132-148) mmol/L Potassium (3.6-5.2) mmol/L Chloride (98-107) mmol/L Carbon Dioxide (22-30) mmol/L Anion Gap (10-20) BUN (9-20) mg/dL Creatinine (0.8-1.5) mg/dL Est GFR ( Amer) Est GFR (Non-Af Amer) POC Glucose (mg/dL) 127 H 152 H (65-110) mg/dL Random Glucose (75-110) mg/dL Calcium (8.6-10.4) mg/dl Phosphorus (2.5-4.5) mg/dL Magnesium (1.6-2.3) mg/dL Total Bilirubin (0.2-1.3) mg/dL AST (17-59) U/L ALT (21-72) U/L Alkaline Phosphatase (38-126) U/L Total Protein (6.3-8.3) g/dL Albumin (3.5-5.0) g/dL Globulin (2.2-3.9) gm/dL Albumin/Globulin Ratio (1.0-2.1) Vancomycin Trough Cancelled Random Vancomycin 22.5 ug/mL 03/16/18 03/16/18 03/16/18 Range/Units 06:22 06:17 05:49 WBC 15.8 H (4.8-10.8) K/uL RBC 3.61 L (4.40-5.90) Mil/uL Hgb 9.8 L (12.0-18.0) g/dL Hct 30.4 L (35.0-51.0) % MCV 84.3 (80.0-94.0) fL MCH 27.0 (27.0-31.0) pg MCHC 32.1 L (33.0-37.0) g/dL RDW 16.5 H (11.5-14.5) % Plt Count 175 (130-400) K/uL MPV 10.6 (7.2-11.7) fL Neut % (Auto) 80.9 H (50.0-75.0) % Lymph % (Auto) 6.1 L (20.0-40.0) % [place] % (Auto) 11.6 H (0.0-10.0) % Eos % (Auto) 1.1 (0.0-4.0) % Baso % (Auto) 0.3 (0.0-2.0) % Neut # (Auto) 12.8 H (1.8-7.0) K/uL Lymph # (Auto) 1.0 (1.0-4.3) K/uL [place] # (Auto) 1.8 H (0.0-0.8) K/uL Eos # (Auto) 0.2 (0.0-0.7) K/uL Baso # (Auto) 0.1 (0.0-0.2) K/uL Neutrophils % (Manual) 84 H (50-75) % Lymphocytes % (Manual) 5 L (20-40) % Monocytes % (Manual) 10 (0-10) % Eosinophils % (Manual) 1 (0-4) % Platelet Estimate Normal (NORMAL) Hypochromasia (manual) Slight Anisocytosis (manual) Slight Ovalocytes Slight Puncture Site pCO2 (35-45) mm/Hg pO2 (80-100) mm/Hg HCO3 (21-28) mmol/L ABG pH (7.35-7.45) ABG Total CO2 (22-28) mmol/L ABG O2 Saturation (95-98) % ABG Base Excess (-2.0-3.0) mmol/L ABG Hemoglobin (11.7-17.4) g/dL ABG Carboxyhemoglobin (0.5-1.5) % POC ABG HHb (Measured) (0.0-5.0) % ABG Methemoglobin (0.0-3.0) % Joseph Test A-a O2 Difference mm/Hg Respiratory Index Hgb O2 Saturation (95.0-98.0) % Vent Mode Mechanical Rate FiO2 % Tidal Volume PEEP Sodium 145 (132-148) mmol/L Potassium 3.6 (3.6-5.2) mmol/L Chloride 117 H (98-107) mmol/L Carbon Dioxide 24 (22-30) mmol/L Anion Gap 7 L (10-20) BUN 11 (9-20) mg/dL Creatinine 0.8 (0.8-1.5) mg/dL Est GFR ( Amer) > 60 Est GFR (Non-Af Amer) > 60 POC Glucose (mg/dL) 132 H (65-110) mg/dL Random Glucose 126 H (75-110) mg/dL Calcium 8.0 L (8.6-10.4) mg/dl Phosphorus 2.0 L (2.5-4.5) mg/dL Magnesium 1.7 (1.6-2.3) mg/dL Total Bilirubin 0.4 (0.2-1.3) mg/dL AST 57 (17-59) U/L ALT 23 (21-72) U/L Alkaline Phosphatase 49 (38-126) U/L Total Protein 5.2 L (6.3-8.3) g/dL Albumin 2.1 L (3.5-5.0) g/dL Globulin 3.1 (2.2-3.9) gm/dL Albumin/Globulin Ratio 0.7 L (1.0-2.1) Vancomycin Trough Random Vancomycin ug/mL 03/16/18 03/15/18 03/15/18 Range/Units 05:24 23:20 17:50 WBC (4.8-10.8) K/uL RBC (4.40-5.90) Mil/uL Hgb (12.0-18.0) g/dL Hct (35.0-51.0) % MCV (80.0-94.0) fL MCH (27.0-31.0) pg MCHC (33.0-37.0) g/dL RDW (11.5-14.5) % Plt Count (130-400) K/uL MPV (7.2-11.7) fL Neut % (Auto) (50.0-75.0) % Lymph % (Auto) (20.0-40.0) % [place] % (Auto) (0.0-10.0) % Eos % (Auto) (0.0-4.0) % Baso % (Auto) (0.0-2.0) % Neut # (Auto) (1.8-7.0) K/uL Lymph # (Auto) (1.0-4.3) K/uL [place] # (Auto) (0.0-0.8) K/uL Eos # (Auto) (0.0-0.7) K/uL Baso # (Auto) (0.0-0.2) K/uL Neutrophils % (Manual) (50-75) % Lymphocytes % (Manual) (20-40) % Monocytes % (Manual) (0-10) % Eosinophils % (Manual) (0-4) % Platelet Estimate (NORMAL) Hypochromasia (manual) Anisocytosis (manual) Ovalocytes Puncture Site L rad pCO2 37 (35-45) mm/Hg pO2 210 H (80-100) mm/Hg HCO3 22.7 (21-28) mmol/L ABG pH 7.38 (7.35-7.45) ABG Total CO2 23.0 (22-28) mmol/L ABG O2 Saturation 99.9 H (95-98) % ABG Base Excess -2.9 L (-2.0-3.0) mmol/L ABG Hemoglobin 10.0 L (11.7-17.4) g/dL ABG Carboxyhemoglobin 1.5 (0.5-1.5) % POC ABG HHb (Measured) 0.1 (0.0-5.0) % ABG Methemoglobin 1.4 (0.0-3.0) % Joseph Test Pos A-a O2 Difference 100.0 mm/Hg Respiratory Index 0.5 Hgb O2 Saturation 97.0 (95.0-98.0) % Vent Mode Prvc Mechanical Rate 14 FiO2 50.0 % Tidal Volume 500 PEEP 5 Sodium (132-148) mmol/L Potassium (3.6-5.2) mmol/L Chloride (98-107) mmol/L Carbon Dioxide (22-30) mmol/L Anion Gap (10-20) BUN (9-20) mg/dL Creatinine (0.8-1.5) mg/dL Est GFR ( Amer) Est GFR (Non-Af Amer) POC Glucose (mg/dL) 135 H 100 (65-110) mg/dL Random Glucose (75-110) mg/dL Calcium (8.6-10.4) mg/dl Phosphorus (2.5-4.5) mg/dL Magnesium (1.6-2.3) mg/dL Total Bilirubin (0.2-1.3) mg/dL AST (17-59) U/L ALT (21-72) U/L Alkaline Phosphatase (38-126) U/L Total Protein (6.3-8.3) g/dL Albumin (3.5-5.0) g/dL Globulin (2.2-3.9) gm/dL Albumin/Globulin Ratio (1.0-2.1) Vancomycin Trough Random Vancomycin ug/mL Laboratory Results - last 24 hr 03/15/18 03/15/18 03/16/18 17:50 23:20 05:24 WBC RBC Hgb Hct MCV MCH MCHC RDW Plt Count MPV Neut % (Auto) Lymph % (Auto) [place] % (Auto) Eos % (Auto) Baso % (Auto) Neut # (Auto) Lymph # (Auto) [place] # (Auto) Eos # (Auto) Baso # (Auto) Neutrophils % (Manual) Lymphocytes % (Manual) Monocytes % (Manual) Eosinophils % (Manual) Platelet Estimate Hypochromasia (manual) Anisocytosis (manual) Ovalocytes Puncture Site L rad pCO2 37 pO2 210 H HCO3 22.7 ABG pH 7.38 ABG Total CO2 23.0 ABG O2 Saturation 99.9 H ABG Base Excess -2.9 L ABG Hemoglobin 10.0 L ABG Carboxyhemoglobin 1.5 POC ABG HHb (Measured) 0.1 ABG Methemoglobin 1.4 Joseph Test Pos A-a O2 Difference 100.0 Respiratory Index 0.5 Hgb O2 Saturation 97.0 Vent Mode Prvc Mechanical Rate 14 FiO2 50.0 Tidal Volume 500 PEEP 5 Sodium Potassium Chloride Carbon Dioxide Anion Gap BUN Creatinine Est GFR ( Amer) Est GFR (Non-Af Amer) POC Glucose (mg/dL) 100 135 H Random Glucose Calcium Phosphorus Magnesium Total Bilirubin AST ALT Alkaline Phosphatase Total Protein Albumin Globulin Albumin/Globulin Ratio Vancomycin Trough Random Vancomycin 03/16/18 03/16/18 03/16/18 05:49 06:17 06:22 WBC 15.8 H RBC 3.61 L Hgb 9.8 L Hct 30.4 L MCV 84.3 MCH 27.0 MCHC 32.1 L RDW 16.5 H Plt Count 175 MPV 10.6 Neut % (Auto) 80.9 H Lymph % (Auto) 6.1 L [place] % (Auto) 11.6 H Eos % (Auto) 1.1 Baso % (Auto) 0.3 Neut # (Auto) 12.8 H Lymph # (Auto) 1.0 [place] # (Auto) 1.8 H Eos # (Auto) 0.2 Baso # (Auto) 0.1 Neutrophils % (Manual) 84 H Lymphocytes % (Manual) 5 L Monocytes % (Manual) 10 Eosinophils % (Manual) 1 Platelet Estimate Normal Hypochromasia (manual) Slight Anisocytosis (manual) Slight Ovalocytes Slight Puncture Site pCO2 pO2 HCO3 ABG pH ABG Total CO2 ABG O2 Saturation ABG Base Excess ABG Hemoglobin ABG Carboxyhemoglobin POC ABG HHb (Measured) ABG Methemoglobin Joseph Test A-a O2 Difference Respiratory Index Hgb O2 Saturation Vent Mode Mechanical Rate FiO2 Tidal Volume PEEP Sodium 145 Potassium 3.6 Chloride 117 H Carbon Dioxide 24 Anion Gap 7 L BUN 11 Creatinine 0.8 Est GFR ( Amer) > 60 Est GFR (Non-Af Amer) > 60 POC Glucose (mg/dL) 132 H Random Glucose 126 H Calcium 8.0 L Phosphorus 2.0 L Magnesium 1.7 Total Bilirubin 0.4 AST 57 ALT 23 Alkaline Phosphatase 49 Total Protein 5.2 L Albumin 2.1 L Globulin 3.1 Albumin/Globulin Ratio 0.7 L Vancomycin Trough Random Vancomycin 03/16/18 03/16/18 03/16/18 08:57 11:40 17:37 WBC RBC Hgb Hct MCV MCH MCHC RDW Plt Count MPV Neut % (Auto) Lymph % (Auto) [place] % (Auto) Eos % (Auto) Baso % (Auto) Neut # (Auto) Lymph # (Auto) [place] # (Auto) Eos # (Auto) Baso # (Auto) Neutrophils % (Manual) Lymphocytes % (Manual) Monocytes % (Manual) Eosinophils % (Manual) Platelet Estimate Hypochromasia (manual) Anisocytosis (manual) Ovalocytes Puncture Site pCO2 pO2 HCO3 ABG pH ABG Total CO2 ABG O2 Saturation ABG Base Excess ABG Hemoglobin ABG Carboxyhemoglobin POC ABG HHb (Measured) ABG Methemoglobin Joseph Test A-a O2 Difference Respiratory Index Hgb O2 Saturation Vent Mode Mechanical Rate FiO2 Tidal Volume PEEP Sodium Potassium Chloride Carbon Dioxide Anion Gap BUN Creatinine Est GFR ( Amer) Est GFR (Non-Af Amer) POC Glucose (mg/dL) 152 H 127 H Random Glucose Calcium Phosphorus Magnesium Total Bilirubin AST ALT Alkaline Phosphatase Total Protein Albumin Globulin Albumin/Globulin Ratio Vancomycin Trough Cancelled Random Vancomycin 22.5 Attending/Attestation - Attestation I have personally seen and examined this patient.: Yes I have fully participated in the care of the patient.: Yes I have reviewed all pertinent clinical information: Yes Notes (Text): 03/16/18 17:53 I have seen and examined the patient. Medical records, lab studies, and imaging were reviewed by me and a management plan was formulated on multidisciplinary rounds with resident Dr. Cunha. I agree with their documented assessment and plan. Taken off sedation, will wait, currently appears to be in a vegetative state. Patient has no family nor friends who are willing to make decisions about him. If he remains in a vegetative state, it will be medically futile to continue on life support measures. His one friend came by and did say he never wanted to be kept alive using extraordinary measures if there was no hope of recovery, but he was not willing to make any medical decisions. Critical Care Time 35 minutes. Multi-disciplinary rounds were performed with house staff, nursing, speech therapy, respiratory therapy, pharmacy and nutrition with integrated input from the primary team/attending and other consulting services. The documented time is cumulative and includes review of patient data/exams/labs/chart review and examination of the patient on rounds and throughout the day; time is exclusive of any procedures or teaching time.
--- NOTE | 2018-03-16 14:42 | CP.PCM.PN ---
Subjective - Date & Time of Evaluation Date of Evaluation: 03/16/18 Time of Evaluation: 14:15 - Subjective Subjective: dictated Objective - Vital Signs/Intake and Output Vital Signs (last 24 hours): Temp Pulse Resp BP Pulse Ox 99.2 F 85 15 109/61 98 03/16/18 08:00 03/16/18 14:00 03/16/18 14:00 03/16/18 13:57 03/16/18 14:00 Intake and Output: 03/16/18 03/16/18 06:59 18:59 Intake Total 2720.6 1984.9 Output Total 595 495 Balance 2125.6 1489.9 - Medications Medications: Current Medications Aspirin (Aspirin Chewable) 81 mg PO DAILY [facility] Last Admin: 03/16/18 09:04 Dose: 81 mg Vancomycin/Sodium Chloride (Vancomycin 1 Gm/Ns 200 Ml) 1 gm in 200 mls @ 133.333 mls/hr IVPB Q12H [facility] PRN Reason: Protocol Stop: 03/19/18 16:01 Last Admin: 03/16/18 03:51 Dose: 133.333 mls/hr Fentanyl Citrate 2,500 mcg/ (Sodium Chloride) 250 mls @ 12.97 mls/hr IV .[id number] [facility]; 2 MCG/KG/HR PRN Reason: Protocol Last Titration: 03/16/18 11:00 Dose: 0 mcg/kg/hr, 0 mls/hr Meropenem 1 gm/ Sodium (Chloride) 100 mls @ 100 mls/hr IVPB Q8H [facility] PRN Reason: Protocol Last Admin: 03/16/18 09:00 Dose: 100 mls/hr Norepinephrine Bitartrate 4 mg (/ Sodium Chloride) 254 mls @ 15.24 mls/hr IV .[id number] PRN; Protocol; 4 MCG/MIN PRN Reason: TITRATE PER MD ORDER Last Admin: 03/16/18 08:00 Dose: 6 mcg/min, 22.86 mls/hr Potassium Phosphate 15 mmole/ (Sodium Chloride) 255 mls @ 42.5 mls/hr IVPB ONCE ONE Stop: 03/16/18 14:59 Last Admin: 03/16/18 08:58 Dose: 42.5 mls/hr Sodium Chloride (Sodium Chloride 0.9%) 1,000 mls @ 70 mls/hr IV .[id number] [facility] Last Admin: 03/16/18 12:00 Dose: 70 mls/hr Levetiracetam 1,000 mg/ (Dextrose) 110 mls @ 420 mls/hr IVPB Q12H [facility] Pantoprazole Sodium (Protonix Inj) 40 mg IVP DAILY [facility] Last Admin: 03/16/18 09:04 Dose: 40 mg Rosuvastatin Calcium (Crestor) 10 mg PO HS [facility] Last Admin: 03/15/18 21:42 Dose: 10 mg Tamsulosin HCl (Flomax) 0.4 mg PO DAILY [facility] Last Admin: 03/16/18 09:04 Dose: 0.4 mg Valproate Sodium (Depakene Oral Soln) 1,000 mg PO BID [facility] - Labs Labs: 03/16/18 06:22 03/16/18 06:17 PT 17.4 SECONDS (9.7-12.2) H 03/14/18 09:30 INR 1.6 03/14/18 09:30 APTT 31 SECONDS (21-34) 03/14/18 09:30
[2018-03-16] MEDS ORDERED: Acetaminophen 650mg/20.3ml solution UD PO PRN (17:30)
[2018-03-16] MEDS ORDERED: Acetaminophen 650mg/20.3ml solution UD NG PRN (17:31)
--- NOTE | 2018-03-16 18:30 | CP.PCM.CON ---
History of Present Illness - History of Present Illness History of Present Illness: Reason for consultation: respiratory failure on ventilatory support Patient is a 73 year old male with history of HTN, HLD, BPH, schizophrenia, CKD , CHF, dementia who was sent in for [facility] after he was found altered with poor O2 saturation. Patient unable to provide history. The patient was intubated in the emergency and CAT scan of the head showed large MCA infarct. Patient is full code. PMH: CHF, HTN, HLD, paranoid schizophrenia, CKD, BPH, recurrent UTIs, dementia PSH: tonsillectomy Family hx: mother of cardiac issues, father - emphysema Social: No alcohol, tobacco or drug use Home meds: ASA 81mg Proscar 5mg daily, Flomax 0.4mg daily, Remeron 30mg HS, Megace 400mg, Depakote 250mg Am, Depakote 500mg PM, Vit D supplement, Metoprolol 12.5mg PO, Lasix 20mg daily Allergies: NKDA Review of Systems - Review of Systems Systems not reviewed;Unavailable: Intubated Past Patient History - Infectious Disease Hx of Infectious Diseases: None - Tetanus Immunizations Tetanus Immunization: Unknown - Past Medical History & Family History Past Medical History?: Yes - Past Social History Smoking Status: Never Smoked - CARDIAC Hx Congestive Heart Failure: Yes Hx Hypercholesterolemia: Yes Hx Hypertension: Yes - PULMONARY Hx Asthma: Yes Hx Chronic Obstructive Pulmonary Disease (COPD): Yes Hx Pneumonia: Yes - HEENT Hx HEENT Problems: Yes Hx Cataracts: Yes Other/Comment: hard of hearing - RENAL Hx Chronic Kidney Disease: Yes (renal insufficiency) - PSYCHIATRIC Hx Anxiety: Yes Hx Bipolar Disorder: Yes Hx Depression: Yes Hx Schizophrenia: Yes Hx Substance Use: No - SURGICAL HISTORY Hx Tonsillectomy: Yes - ANESTHESIA Hx Anesthesia: Yes Hx Anesthesia Reactions: No Hx Malignant Hyperthermia: No Meds Allergies/Adverse Reactions: Allergies Allergy/AdvReac Type Severity Reaction Status Date / Time No Known Allergies Allergy Verified 03/14/18 09:01 - Medications Medications: Current Medications Acetaminophen (Tylenol 650mg/20.3ml Solution Ud) 650 mg NG Q6 PRN PRN Reason: Fever Aspirin (Aspirin Chewable) 81 mg PO DAILY [facility] Last Admin: 03/16/18 09:04 Dose: 81 mg Vancomycin/Sodium Chloride (Vancomycin 1 Gm/Ns 200 Ml) 1 gm in 200 mls @ 133.333 mls/hr IVPB Q12H [facility] PRN Reason: Protocol Stop: 03/19/18 16:01 Last Admin: 03/16/18 16:00 Dose: 133.333 mls/hr Fentanyl Citrate 2,500 mcg/ (Sodium Chloride) 250 mls @ 12.97 mls/hr IV .[id number] [facility]; 2 MCG/KG/HR PRN Reason: Protocol Last Titration: 03/16/18 11:00 Dose: 0 mcg/kg/hr, 0 mls/hr Meropenem 1 gm/ Sodium (Chloride) 100 mls @ 100 mls/hr IVPB Q8H [facility] PRN Reason: Protocol Last Admin: 03/16/18 16:00 Dose: 100 mls/hr Norepinephrine Bitartrate 4 mg (/ Sodium Chloride) 254 mls @ 15.24 mls/hr IV .[id number] PRN; Protocol; 4 MCG/MIN PRN Reason: TITRATE PER MD ORDER Last Admin: 03/16/18 08:00 Dose: 6 mcg/min, 22.86 mls/hr Sodium Chloride (Sodium Chloride 0.9%) 1,000 mls @ 70 mls/hr IV .[id number] [facility] Last Admin: 03/16/18 12:00 Dose: 70 mls/hr Levetiracetam 1,000 mg/ (Dextrose) 110 mls @ 420 mls/hr IVPB Q12H [facility] Last Admin: 03/16/18 15:30 Dose: 420 mls/hr Pantoprazole Sodium (Protonix Inj) 40 mg IVP DAILY [facility] Last Admin: 03/16/18 09:04 Dose: 40 mg Rosuvastatin Calcium (Crestor) 10 mg PO HS [facility] Last Admin: 03/15/18 21:42 Dose: 10 mg Tamsulosin HCl (Flomax) 0.4 mg PO DAILY [facility] Last Admin: 03/16/18 09:04 Dose: 0.4 mg Valproate Sodium (Depakene Oral Soln) 1,000 mg PO BID [facility] Last Admin: 03/16/18 17:49 Dose: 1,000 mg Physical Exam - Head Exam Head Exam: ATRAUMATIC, NORMOCEPHALIC - ENT Exam ENT Exam: Mucous Membranes Moist - Respiratory Exam Respiratory Exam: Decreased Breath Sounds - Cardiovascular Exam Cardiovascular Exam: REGULAR RHYTHM - GI/Abdominal Exam GI & Abdominal Exam: Normal Bowel Sounds Results - Vital Signs Recent Vital Signs: Last Vital Signs Temp 99.9 F H 03/16/18 15:43 Pulse 97 H 03/16/18 18:00 Resp 20 03/16/18 18:00 BP 108/52 L 03/16/18 17:57 Pulse Ox 99 03/16/18 16:17 - Labs Result Diagrams: 03/16/18 06:22 03/16/18 06:17 Labs: Laboratory Results - last 24 hr 03/15/18 03/16/18 03/16/18 23:20 05:24 05:49 WBC RBC Hgb Hct MCV MCH MCHC RDW Plt Count MPV Neut % (Auto) Lymph % (Auto) [place] % (Auto) Eos % (Auto) Baso % (Auto) Neut # (Auto) Lymph # (Auto) [place] # (Auto) Eos # (Auto) Baso # (Auto) Neutrophils % (Manual) Lymphocytes % (Manual) Monocytes % (Manual) Eosinophils % (Manual) Platelet Estimate Hypochromasia (manual) Anisocytosis (manual) Ovalocytes Puncture Site L rad pCO2 37 pO2 210 H HCO3 22.7 ABG pH 7.38 ABG Total CO2 23.0 ABG O2 Saturation 99.9 H ABG Base Excess -2.9 L ABG Hemoglobin 10.0 L ABG Carboxyhemoglobin 1.5 POC ABG HHb (Measured) 0.1 ABG Methemoglobin 1.4 Joseph Test Pos A-a O2 Difference 100.0 Respiratory Index 0.5 Hgb O2 Saturation 97.0 Vent Mode Prvc Mechanical Rate 14 FiO2 50.0 Tidal Volume 500 PEEP 5 Sodium Potassium Chloride Carbon Dioxide Anion Gap BUN Creatinine Est GFR ( Amer) Est GFR (Non-Af Amer) POC Glucose (mg/dL) 135 H 132 H Random Glucose Calcium Phosphorus Magnesium Total Bilirubin AST ALT Alkaline Phosphatase Total Protein Albumin Globulin Albumin/Globulin Ratio Vancomycin Trough Random Vancomycin 03/16/18 03/16/18 03/16/18 06:17 06:22 08:57 WBC 15.8 H RBC 3.61 L Hgb 9.8 L Hct 30.4 L MCV 84.3 MCH 27.0 MCHC 32.1 L RDW 16.5 H Plt Count 175 MPV 10.6 Neut % (Auto) 80.9 H Lymph % (Auto) 6.1 L [place] % (Auto) 11.6 H Eos % (Auto) 1.1 Baso % (Auto) 0.3 Neut # (Auto) 12.8 H Lymph # (Auto) 1.0 [place] # (Auto) 1.8 H Eos # (Auto) 0.2 Baso # (Auto) 0.1 Neutrophils % (Manual) 84 H Lymphocytes % (Manual) 5 L Monocytes % (Manual) 10 Eosinophils % (Manual) 1 Platelet Estimate Normal Hypochromasia (manual) Slight Anisocytosis (manual) Slight Ovalocytes Slight Puncture Site pCO2 pO2 HCO3 ABG pH ABG Total CO2 ABG O2 Saturation ABG Base Excess ABG Hemoglobin ABG Carboxyhemoglobin POC ABG HHb (Measured) ABG Methemoglobin Joseph Test A-a O2 Difference Respiratory Index Hgb O2 Saturation Vent Mode Mechanical Rate FiO2 Tidal Volume PEEP Sodium 145 Potassium 3.6 Chloride 117 H Carbon Dioxide 24 Anion Gap 7 L BUN 11 Creatinine 0.8 Est GFR ( Amer) > 60 Est GFR (Non-Af Amer) > 60 POC Glucose (mg/dL) Random Glucose 126 H Calcium 8.0 L Phosphorus 2.0 L Magnesium 1.7 Total Bilirubin 0.4 AST 57 ALT 23 Alkaline Phosphatase 49 Total Protein 5.2 L Albumin 2.1 L Globulin 3.1 Albumin/Globulin Ratio 0.7 L Vancomycin Trough Cancelled Random Vancomycin 22.5 03/16/18 03/16/18 11:40 17:37 WBC RBC Hgb Hct MCV MCH MCHC RDW Plt Count MPV Neut % (Auto) Lymph % (Auto) [place] % (Auto) Eos % (Auto) Baso % (Auto) Neut # (Auto) Lymph # (Auto) [place] # (Auto) Eos # (Auto) Baso # (Auto) Neutrophils % (Manual) Lymphocytes % (Manual) Monocytes % (Manual) Eosinophils % (Manual) Platelet Estimate Hypochromasia (manual) Anisocytosis (manual) Ovalocytes Puncture Site pCO2 pO2 HCO3 ABG pH ABG Total CO2 ABG O2 Saturation ABG Base Excess ABG Hemoglobin ABG Carboxyhemoglobin POC ABG HHb (Measured) ABG Methemoglobin Joseph Test A-a O2 Difference Respiratory Index Hgb O2 Saturation Vent Mode Mechanical Rate FiO2 Tidal Volume PEEP Sodium Potassium Chloride Carbon Dioxide Anion Gap BUN Creatinine Est GFR ( Amer) Est GFR (Non-Af Amer) POC Glucose (mg/dL) 152 H 127 H Random Glucose Calcium Phosphorus Magnesium Total Bilirubin AST ALT Alkaline Phosphatase Total Protein Albumin Globulin Albumin/Globulin Ratio Vancomycin Trough Random Vancomycin Assessment & Plan (1) Respiratory failure requiring intubation Status: Acute Comment: continue ventilatory support. Large MCA infarct. IV antibiotics. No weaning yet (2) COPD (chronic obstructive pulmonary disease) Status: Acute (3) Pneumonia involving right lung Status: Acute (4) UTI (lower urinary tract infection) Status: Acute
--- NOTE | 2018-03-16 19:42 | CP.PCM.PN ---
<Kathy Trinidad - Last Filed: 03/16/18 19:37> Subjective - Date & Time of Evaluation Date of Evaluation: 03/16/18 Time of Evaluation: 09:35 - Subjective Subjective: Cardiology progress note ( Dr. Ramirez's service) Patient was seen and examined at bedside. Patient is currently intubated and clinically the same. Unable to evaluate ROS due to current clinical status. Objective - Vital Signs/Intake and Output Vital Signs (last 24 hours): Temp Pulse Resp BP Pulse Ox 99.9 F H 90 18 101/52 L 99 03/16/18 15:43 03/16/18 18:36 03/16/18 18:36 03/16/18 18:36 03/16/18 18:36 Intake and Output: 03/16/18 03/17/18 18:59 06:59 Intake Total 2938.9 Output Total 695 Balance 2243.9 - Medications Medications: Current Medications Acetaminophen (Tylenol 650mg/20.3ml Solution Ud) 650 mg NG Q6 PRN PRN Reason: Fever Aspirin (Aspirin Chewable) 81 mg PO DAILY [facility] Last Admin: 03/16/18 09:04 Dose: 81 mg Vancomycin/Sodium Chloride (Vancomycin 1 Gm/Ns 200 Ml) 1 gm in 200 mls @ 133.333 mls/hr IVPB Q12H [facility] PRN Reason: Protocol Stop: 03/19/18 16:01 Last Admin: 03/16/18 16:00 Dose: 133.333 mls/hr Fentanyl Citrate 2,500 mcg/ (Sodium Chloride) 250 mls @ 12.97 mls/hr IV .[id number] [facility]; 2 MCG/KG/HR PRN Reason: Protocol Last Titration: 03/16/18 11:00 Dose: 0 mcg/kg/hr, 0 mls/hr Meropenem 1 gm/ Sodium (Chloride) 100 mls @ 100 mls/hr IVPB Q8H [facility] PRN Reason: Protocol Last Admin: 03/16/18 16:00 Dose: 100 mls/hr Norepinephrine Bitartrate 4 mg (/ Sodium Chloride) 254 mls @ 15.24 mls/hr IV .[id number] PRN; Protocol; 4 MCG/MIN PRN Reason: TITRATE PER MD ORDER Last Admin: 03/16/18 18:36 Dose: 6 mcg/min, 22.86 mls/hr Sodium Chloride (Sodium Chloride 0.9%) 1,000 mls @ 70 mls/hr IV .[id number] [facility] Last Admin: 03/16/18 12:00 Dose: 70 mls/hr Levetiracetam 1,000 mg/ (Dextrose) 110 mls @ 420 mls/hr IVPB Q12H [facility] Last Admin: 03/16/18 15:30 Dose: 420 mls/hr Pantoprazole Sodium (Protonix Inj) 40 mg IVP DAILY [facility] Last Admin: 03/16/18 09:04 Dose: 40 mg Rosuvastatin Calcium (Crestor) 10 mg PO HS [facility] Last Admin: 03/15/18 21:42 Dose: 10 mg Tamsulosin HCl (Flomax) 0.4 mg PO DAILY [facility] Last Admin: 03/16/18 09:04 Dose: 0.4 mg Valproate Sodium (Depakene Oral Soln) 1,000 mg PO BID [facility] Last Admin: 03/16/18 17:49 Dose: 1,000 mg - Labs Labs: 03/16/18 06:22 03/16/18 06:17 PT 17.4 SECONDS (9.7-12.2) H 03/14/18 09:30 INR 1.6 03/14/18 09:30 APTT 31 SECONDS (21-34) 03/14/18 09:30 - Respiratory Exam Respiratory Exam: NORMAL BREATHING PATTERN Additional comments: Intubated - Cardiovascular Exam Cardiovascular Exam: REGULAR RHYTHM - GI/Abdominal Exam GI & Abdominal Exam: Soft, Normal Bowel Sounds - Extremities Exam Extremities Exam: Normal Inspection. absent: Calf Tenderness, Pedal Edema Assessment and Plan (1) Non-STEMI (non-ST elevated myocardial infarction) Assessment & Plan: 1.3100--->1.6500-->1.6500 Lipid panel: - TGL: 58, Chol: 80, LDL:42 and HDL: 24 TSH 3rd gen and free T4: 1.74 and 2.12 BNP: 7420 EKG: T-wave abnormality in V2 and V3 Echocardiogram (03/15/18): LV systolic function is normal. EF> 70%. Severe pulmonary hypertension. IVC dilated ASA 81mg PO daily Crestor 10mg PO HS Patient is currently not a candidate for cardiac catherization. Please continue medical management at this time Status: Acute (2) Stroke Assessment & Plan: Repeat Head CT (03/15/18): Large acute left MCA territory infarct with loss of the corticomedullary junction overlying sulcal effacement and compression of the left lateral ventricle. Additionally, there there are apparent infarct changes in the right posterior temporoparietal watershed zone as well with probable involvement of the right posterolateral basal ganglia/ coronal radiata junction and deeper white matter. No evidence of acute parenchymal, subarachnoid or extra-axial hemorrhage. HEAD CT (03/14/18): Large acute left MCA territory infarct as detailed above. No hemorrhage. 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 Management as per neurology: * ASA 81mg PO daily * Crestor 10mg PO HS * Keppra 1,000mg IV Q12H Patient is currently not a great candidate for cardiac catherization due to current clinically status Please consider heparin 5,000 units SC Q8 for DVT PPX as long as neurology team approves All plans and management discussed with Dr. Ramirez Status: Acute <Sushil Ramirez - Last Filed: 03/17/18 00:02> Objective - Vital Signs/Intake and Output Vital Signs (last 24 hours): Temp Pulse Resp BP Pulse Ox 99.9 F H 82 21 93/48 L 100 03/16/18 15:43 03/16/18 20:23 03/16/18 20:23 03/16/18 20:23 03/16/18 20:23 Intake and Output: 03/16/18 03/17/18 18:59 06:59 Intake Total 2938.9 285.0 Output Total 695 100 Balance 2243.9 185.0 - Medications Medications: Current Medications Acetaminophen (Tylenol 650mg/20.3ml Solution Ud) 650 mg NG Q6 PRN PRN Reason: Fever Aspirin (Aspirin Chewable) 81 mg PO DAILY [facility] Last Admin: 03/16/18 09:04 Dose: 81 mg Vancomycin/Sodium Chloride (Vancomycin 1 Gm/Ns 200 Ml) 1 gm in 200 mls @ 133.333 mls/hr IVPB Q12H [facility] PRN Reason: Protocol Stop: 03/19/18 16:01 Last Admin: 03/16/18 16:00 Dose: 133.333 mls/hr Fentanyl Citrate 2,500 mcg/ (Sodium Chloride) 250 mls @ 12.97 mls/hr IV .[id number] [facility]; 2 MCG/KG/HR PRN Reason: Protocol Last Titration: 03/16/18 11:00 Dose: 0 mcg/kg/hr, 0 mls/hr Meropenem 1 gm/ Sodium (Chloride) 100 mls @ 100 mls/hr IVPB Q8H [facility] PRN Reason: Protocol Last Admin: 03/16/18 16:00 Dose: 100 mls/hr Norepinephrine Bitartrate 4 mg (/ Sodium Chloride) 254 mls @ 15.24 mls/hr IV .[id number] PRN; Protocol; 4 MCG/MIN PRN Reason: TITRATE PER MD ORDER Last Admin: 03/16/18 18:36 Dose: 6 mcg/min, 22.86 mls/hr Sodium Chloride (Sodium Chloride 0.9%) 1,000 mls @ 70 mls/hr IV .[id number] [facility] Last Admin: 03/16/18 12:00 Dose: 70 mls/hr Levetiracetam 1,000 mg/ (Dextrose) 110 mls @ 420 mls/hr IVPB Q12H [facility] Last Admin: 03/16/18 15:30 Dose: 420 mls/hr Pantoprazole Sodium (Protonix Inj) 40 mg IVP DAILY [facility] Last Admin: 03/16/18 09:04 Dose: 40 mg Rosuvastatin Calcium (Crestor) 10 mg PO HS [facility] Last Admin: 03/16/18 21:09 Dose: 10 mg Tamsulosin HCl (Flomax) 0.4 mg PO DAILY [facility] Last Admin: 03/16/18 09:04 Dose: 0.4 mg Valproate Sodium (Depakene Oral Soln) 1,000 mg PO BID [facility] Last Admin: 03/16/18 17:49 Dose: 1,000 mg - Labs Labs: 03/16/18 06:22 03/16/18 06:17 PT 17.4 SECONDS (9.7-12.2) H 03/14/18 09:30 INR 1.6 03/14/18 09:30 APTT 31 SECONDS (21-34) 03/14/18 09:30 Assessment and Plan - Assessment and Plan (Free Text) Assessment: Patient seen and evaluated personally by pr Plan of care d/w the medical van driver and as documented
--- NOTE | 2018-03-16 22:35 | CP.PCM.PN ---
Objective - Vital Signs/Intake and Output Vital Signs (last 24 hours): Temp Pulse Resp BP Pulse Ox 99.9 F H 82 21 93/48 L 100 03/16/18 15:43 03/16/18 20:23 03/16/18 20:23 03/16/18 20:23 03/16/18 20:23 Intake and Output: 03/16/18 03/17/18 18:59 06:59 Intake Total 2938.9 285.0 Output Total 695 100 Balance 2243.9 185.0 - Medications Medications: Current Medications Acetaminophen (Tylenol 650mg/20.3ml Solution Ud) 650 mg NG Q6 PRN PRN Reason: Fever Aspirin (Aspirin Chewable) 81 mg PO DAILY GHANSHYAM Last Admin: 03/16/18 09:04 Dose: 81 mg Vancomycin/Sodium Chloride (Vancomycin 1 Gm/Ns 200 Ml) 1 gm in 200 mls @ 133.333 mls/hr IVPB Q12H GHANSHYAM PRN Reason: Protocol Stop: 03/19/18 16:01 Last Admin: 03/16/18 16:00 Dose: 133.333 mls/hr Fentanyl Citrate 2,500 mcg/ (Sodium Chloride) 250 mls @ 12.97 mls/hr IV .[id number] GHANSHYAM; 2 MCG/KG/HR PRN Reason: Protocol Last Titration: 03/16/18 11:00 Dose: 0 mcg/kg/hr, 0 mls/hr Meropenem 1 gm/ Sodium (Chloride) 100 mls @ 100 mls/hr IVPB Q8H GHANSHYAM PRN Reason: Protocol Last Admin: 03/16/18 16:00 Dose: 100 mls/hr Norepinephrine Bitartrate 4 mg (/ Sodium Chloride) 254 mls @ 15.24 mls/hr IV .[id number] PRN; Protocol; 4 MCG/MIN PRN Reason: TITRATE PER MD ORDER Last Admin: 03/16/18 18:36 Dose: 6 mcg/min, 22.86 mls/hr Sodium Chloride (Sodium Chloride 0.9%) 1,000 mls @ 70 mls/hr IV .[id number] GHANSHYAM Last Admin: 03/16/18 12:00 Dose: 70 mls/hr Levetiracetam 1,000 mg/ (Dextrose) 110 mls @ 420 mls/hr IVPB Q12H GHANSHYAM Last Admin: 03/16/18 15:30 Dose: 420 mls/hr Pantoprazole Sodium (Protonix Inj) 40 mg IVP DAILY GHANSHYAM Last Admin: 03/16/18 09:04 Dose: 40 mg Rosuvastatin Calcium (Crestor) 10 mg PO HS [facility] Last Admin: 03/16/18 21:09 Dose: 10 mg Tamsulosin HCl (Flomax) 0.4 mg PO DAILY GHANSHYAM Last Admin: 03/16/18 09:04 Dose: 0.4 mg Valproate Sodium (Depakene Oral Soln) 1,000 mg PO BID [facility] Last Admin: 03/16/18 17:49 Dose: 1,000 mg - Labs Labs: 03/16/18 06:22 03/16/18 06:17 PT 17.4 SECONDS (9.7-12.2) H 03/14/18 09:30 INR 1.6 03/14/18 09:30 APTT 31 SECONDS (21-34) 03/14/18 09:30
--- NOTE | 2018-03-16 23:48 | PN ---
DATE: 03/16/2018 SUBJECTIVE: The patient was seen. He remains intubated. He is unresponsive, intubated, sedated. PHYSICAL EXAMINATION: GENERAL: He appears pale. HEENT: Head is atraumatic, normocephalic. NECK: Supple. LUNGS: Clear. Decreased breath sounds bilaterally. HEART: S1, S2 are regular. No murmurs appreciated. ABDOMEN: Soft, nontender. No guarding. No rigidity present. NEUROLOGIC: This right side arm is internally rotated. EXTREMITIES: Have stasis dermatitis and hyperpigmentation secondary to that on the lower extremities otherwise. LABORATORY DATA: Labs are noted. Labs show white count is 15.8, hemoglobin 9.8, hematocrit is 30.4, platelet count is 175. White count still is increasing every day. He is on Tylenol, fentanyl, meropenem, pantoprazole, calcium, tamsulosin, valproic acid, and he is on vancomycin. His sputum is negative. Urine, blood, everything is negative. He had a head CT. He has acute stroke at this time. His last chest x-ray shows interval LV opacity, left mid lung zone and developing patchy infiltrate is a consideration. Atelectasis at lung base has largely cleared. So left mid lung zone is developing an infiltrate. ASSESSMENT AND PLAN: He remains on IV antibiotics. He is with respiratory support at this time, acute cerebrovascular accident. His vitals are stable at this time. He has low-grade temperature. We will follow. Sputum did not grow anything. Serology shows negative influenza, negative Legionella. His random vancomycin was 22.5 today. We will follow. His white count is rising, he is on antibiotics. We will repeat sputum again and blood cultures again as ordered. Jayshree England MD
[2018-03-17] MEDS: Meropenem 1 GM in Sodium Chloride 0.9% 100 ML IVPB SCH ×3 (00:40→16:00)
[2018-03-17] MEDS: Vancomycin 1 gm/NS 200 ml 1 GM/200 ML BAG IVPB SCH ×2 (04:33→16:00)
[2018-03-17] MEDS: Sodium Chloride 0.9% 1,000 ML IV SCH ×2 (04:37→16:00)
[2018-03-17 05:47] LABS: ABG ALLEN TEST POS; ARTERIAL BLOOD GAS HCO3 23.5 mmol/L (21-28); ARTERIAL BLOOD GAS HEMOGLOBIN 10.8 g/dL (11.7-17.4); ARTERIAL BLOOD GAS O2 SAT 98.7 % (95-98); ARTERIAL BLOOD GAS PCO2 30 mm/Hg (35-45); ARTERIAL BLOOD GAS PH 7.46 (7.35-7.45); ARTERIAL BLOOD GAS PO2 84 mm/Hg (80-100); ARTERIAL BLOOD GAS TCO2 22.2 mmol/L (22-28)
[2018-03-17 06:27] LABS: BASO # 0.1 K/uL (0.0-0.2); BASO % 0.3 % (0.0-2.0); EOS # 0.4 K/uL (0.0-0.7); EOS % 2.2 % (0.0-4.0); HEMOGLOBIN 10.2 g/dL (12.0-18.0); LYMPH % 6.1 % (20.0-40.0); MEAN CELL VOLUME 82.9 fL (80.0-94.0); MEAN CORPUSCULAR HEMOGLOBIN 27.8 pg (27.0-31.0); MEAN CORPUSCULAR HGB CONC 33.5 g/dL (33.0-37.0); MEAN PLATELET VOLUME 10.2 fL (7.2-11.7); MONO # 1.6 K/uL (0.0-0.8); NEUT # 13.4 K/uL (1.8-7.0); NEUT % 81.4 % (50.0-75.0); PLATELET COUNT 165 K/uL (130-400); RBC 3.67 Mil/uL (4.40-5.90); RED CELL DISTRIBUTION WIDTH 15.9 % (11.5-14.5); WHITE BLOOD COUNT 16.5 K/uL (4.8-10.8)
[2018-03-17 06:49] LABS: ALB/GLOB RATIO 0.7 (1.0-2.1); ALBUMIN 2.2 g/dL (3.5-5.0); ALT/SGPT 28 U/L (21-72); AST/SGOT 40 U/L (17-59); BLOOD UREA NITROGEN 11 mg/dL (9-20); CALCIUM 7.8 mg/dl (8.6-10.4); GFR NON-AFRICAN AMERICAN > 60
--- NOTE | 2018-03-17 07:51 | CT ---
Date of service: 03/16/2018 PROCEDURE: CT HEAD WITHOUT CONTRAST. HISTORY: Evaluate for herniation COMPARISON: CT head dated 03/14/2018 TECHNIQUE: Axial computed tomography images were obtained through the head/brain without intravenous contrast. Radiation dose: Total exam DLP = 1730 mGy-cm. This CT exam was performed using one or more of the following dose reduction techniques: Automated exposure control, adjustment of the mA and/or kV according to patient size, and/or use of iterative reconstruction technique. FINDINGS: HEMORRHAGE: No intracranial hemorrhage. BRAIN: Abnormal low densities noted in the left frontoparietal lobe extending to the insular cortex. Low-density also noted within the left paul radiata extending into the centrum semiovale. General sulcal effacement seen in the left frontoparietal lobe. Low densities noted in the right posterior parietal lobe. General sulcal effacement in this region. VENTRICLES: Minimal mass effect from the edema at the level of the anterior horn of the left lateral ventricle. CALVARIUM: Unremarkable. PARANASAL SINUSES: Mucous retention cysts are noted in the floor of both maxillary sinuses. MASTOID AIR CELLS: Unremarkable as visualized. No inflammatory changes. OTHER FINDINGS: Right cavernous and supraclinoid internal carotid artery are abnormally dense. IMPRESSION: Subacute infarct in the left frontal parietal lobe and right posterior parietal lobe. Abnormal increased density of the right cavernous and supraclinoid internal carotid arteries unchanged from previous examinations and may represent thrombosis. Mucous retention cyst within the maxillary sinuses bilaterally. If symptoms persists, consider correlation with MRI. These findings were preliminarily reported at 6:36 p.m. on 03/16/[address] Michelle Rm from [facility].
--- NOTE | 2018-03-17 08:11 | PCM.ETH ---
Ethic Consultation - Ethical Consult Current (terminal) illness(es): Patient has had a massive stroke, a non-Q wave NJ, pneumonia, CHF, CKD, dementia , long-term psychiatric issues including Bipolar disorder, and is in respiratory failure on a ventilator Current resuscitation status: Full Code Living will status: Patient has a POLST from Nov, 2017, a POLST from January,, and an Advance Directive on file at , per admission notes. Advance directive status: POLST, AD POLST status: POLST, AD Bioethical issue being addressed: The patient is in a terminal state with no family to speak for him. His most recent POLST from January,, names a friend to be able to make decisions for him regarding his POLST, but this friend has flatly refused, saying he did not understand what he agreed to when he said he would agree to be the decision maker. So, in effect, this patient has no next of kin, no guardian, and no health care proxy. Patients current health status: Actively dying. Current treatment(s): Full life support including ventilation, multiple IV antibiotics. Bioethics service consultant recommendation(s): In trying to sort out what his wishes were or would be, regarding this terminal event, a POLST in 2015 was incomplete; a POLST in 11/2017, created with our Palliative Care nurse, stated he wanted no resuscitation, no intubation, limited artificial feeding and comfort was his goal as well as to stay in the [facility]. He had a second POLST in January, created with his [facility] physician, which stated he wanted to be full code, intubated, and transferred to the hospital. I have yet to locate his Advance Directive. If it is found, I will update this note with his wishes as defined on the AD. However, given the fact that he has a diagnosis of dementia as well as multiple other psychiatric disorders, I find it interesting that the patient signed all of the POLST forms that we have for him. At any rate, at the current time, he is in a very poor status, in respiratory failure, on a ventilator, after a massive CVA, with pneumonia, sepsis, and an NJ , and he is worsening. He is not improving despite maximum therapies - in effect , he has had "everything done" that is medically prudent and meets or exceeds the standards of care. If two licensed physicians (including his attending physician) who have evaluated Mr. Pedro and agree that he is in a terminal state and further care is futile, they should document this in their progress notes. Then his attending physician may initiate palliative care orders, including withdrawal of life support and instituting comfort care orders. This is true regardless of POLST or AD status. No physician may be required to write orders that are medically futile and only serve to prolong a dying process.
[2018-03-17 08:41] LABS: BANDS 3 % (0-2); EOSINOPHIL 2 % (0-4); LYMPHOCYTE 9 % (20-40); MONOCYTE 13 % (0-10); NEUTROPHIL 73 % (50-75); PLATELET ESTIMATE NORMAL (NORMAL); TOTAL CELLS COUNTED 100
[2018-03-17 08:42] LABS: ANISOCYTOSIS SLIGHT; HYPOCHROMIC SLIGHT; OVALOCYTES SLIGHT; POIKILOCYTOSIS SLIGHT
--- NOTE | 2018-03-17 08:49 | RAD ---
Date of service: 03/17/2018 HISTORY: vent/ff-up COMPARISON: 03/16/2018. FINDINGS: The endotracheal tube terminates 1 cm proximal to the aline. The right IJV line terminates in the SVC. The nasogastric tube terminates in the stomach. LUNGS: The right lung is well inflated and clear. There is worsening airspace disease in the left lower lobe. PLEURA: Small pleural effusions, larger on the left, no pneumothorax apparent. CARDIOVASCULAR: Normal. OSSEOUS STRUCTURES: No significant abnormalities. VISUALIZED UPPER ABDOMEN: Normal. OTHER FINDINGS: None. IMPRESSION: Worsening airspace disease in the left lower lobe and worsening left pleural effusion. Persistent small right pleural effusion. Stable position of support line and tubes.
[2018-03-17] MEDS: Valproic Acid 250 mg/5 ml UD Cup PO SCH ×2 (09:09→18:14)
[2018-03-17] MEDS ORDERED: Potassium Phosphate 15 MMOLE in Sodium Chloride 0.9% 250 ML IVPB ONE (09:30)
--- NOTE | 2018-03-17 09:50 | CP.CCUPN ---
<Nitin Cunha - Last Filed: 03/17/18 12:33> CCU Subjective - Physician Review Subjective (Free Text): Critical Care Progress Note: Pt seen and examined at bedside. No acute events overnight. Patient is intubated and sedated on fentanyl ggt and on poressor - levophed drip. 12 Point ROS Limited 2/2 intubation. CCU Objective - Vital Signs / Intake & Output Vital Signs (Last 4 hours): Vital Signs Temp Pulse Resp BP Pulse Ox 03/17/18 09:21 99/54 L 03/17/18 09:20 104 H 23 100 03/17/18 09:00 110 H 24 94 L 03/17/18 08:21 116 H 26 H 114/73 72 L 03/17/18 08:16 110 H 21 110/70 97 03/17/18 08:01 108 H 20 123/72 95 03/17/18 08:00 107 H 18 93 L 03/17/18 07:56 98.5 F 100 03/17/18 07:20 100 H 20 120/66 98 03/17/18 07:00 99 H 22 97 03/17/18 06:20 100 H 21 127/70 96 Intake and Output (Last 8hrs): Intake & Output 03/16/18 03/17/18 03/17/18 22:59 06:59 14:59 Intake Total 1524.0 1463.0 376.3 Output Total 400 380 200 Balance 1124.0 1083.0 176.3 Weight 132 lb 3.2 oz Intake: IV 254 229 5 Intake, IV Amount 910.0 834.0 221.3 Right Distal Port 730 680 210 Internal Jugular Right Medial Port 180.0 154.0 11.3 Internal Jugular Oral 0 Tube Feeding 360 400 150 Output: Urine 400 380 200 Urethral (Hawk) 400 380 200 - Physical Exam Head: Positive for: Atraumatic, Normocephalic Pupils: Positive for: PERRL Mouth: Positive for: Moist Mucous Membranes Respiratory/Chest: Positive for: Clear to Auscultation. Negative for: Wheezes, Rales Cardiovascular: Positive for: Regular Rate and Rhythm, Normal S1, S2 Abdomen: Positive for: Normal Bowel Sounds. Negative for: Tenderness, Distention Upper Extremity: Negative for: Cyanosis, Edema Lower Extremity: Negative for: Edema, CALF TENDERNESS Neurological: Positive for: CN II-XII Intact, Other (On fentanyl, Withdraws to pain on the L side ext) Skin: Positive for: Warm, Dry Psychiatric: Negative for: Alert - Medications Active Medications: Active Medications Generic Name Dose Route Start Last Admin Trade Name Freq PRN Reason Stop Dose Admin Acetaminophen 650 mg 03/16/18 17:31 Tylenol 650mg/20.3ml Solution Ud NG Q6 PRN Fever Aspirin 81 mg 03/15/18 10:00 03/17/18 09:09 Aspirin Chewable PO 81 mg DAILY GHANSHYAM Administration Vancomycin/Sodium Chloride 1 gm in 200 mls @ 133.333 mls/hr 03/14/18 16:00 04:33 Vancomycin 1 Gm/Ns 200 Ml IVPB 03/19/18 16:01 133.333 mls/hr Q12H GHANSHYAM Administration Protocol Fentanyl Citrate 2,500 mcg/ 250 mls @ 12.97 mls/hr 03/14/18 15:15 03/16/18 11 :00 Sodium Chloride IV 0 mcg/kg/hr .[id number] GHANSHYAM 0 mls/hr Protocol Titration 2 MCG/KG/HR Meropenem 1 gm/ Sodium 100 mls @ 100 mls/hr 03/14/18 17:00 03/17/18 09:00 Chloride IVPB 100 mls/hr Q8H GHANSHYAM Administration Protocol Norepinephrine Bitartrate 4 mg 254 mls @ 15.24 mls/hr 03/15/18 15:53 08:00 / Sodium Chloride IV 0 mcg/min .[id number] PRN 0 mls/hr TITRATE PER MD ORDER Titration Protocol 4 MCG/MIN Sodium Chloride 1,000 mls @ 70 mls/hr 03/16/18 11:49 03/17/18 04:37 Sodium Chloride 0.9% IV 70 mls/hr .[id number] GHANSHYAM Administration Levetiracetam 1,000 mg/ 110 mls @ 420 mls/hr 03/16/18 15:30 03/17/18 03:25 Dextrose IVPB 420 mls/hr Q12H GHANSHYAM Administration Potassium Phosphate 15 mmole/ 255 mls @ 42.5 mls/hr 03/17/18 09:30 Sodium Chloride IVPB 03/17/18 15:29 ONCE ONE Pantoprazole Sodium 40 mg 03/15/18 10:00 03/17/18 09:09 Protonix Inj IVP 40 mg DAILY GHASNHYAM Administration Rosuvastatin Calcium 10 mg 03/14/18 22:00 03/16/18 21:09 Crestor PO 10 mg HS GHANSHYAM Administration Tamsulosin HCl 0.4 mg 03/15/18 10:00 03/17/18 09:10 Flomax PO 0.4 mg DAILY GHANSHYAM Administration Valproate Sodium 1,000 mg 03/16/18 14:34 03/17/18 09:09 Depakene Oral Soln PO 1,000 mg BID GHANSHYAM Administration - Patient Studies Lab Studies: Microbiology Studies 03/14/18 09:35 Blood Culture - Preliminary Blood NO GROWTH AFTER 3 DAYS 03/14/18 09:00 Blood Culture - Preliminary Blood NO GROWTH AFTER 3 DAYS 03/16/18 19:17 Gram Stain - Final Sputum 03/14/18 17:23 Gram Stain - Final Sputum Sputum Culture - Final NORMAL ORAL TAO Lab Studies 03/17/18 03/17/18 03/17/18 Range/Units 06:12 06:12 06:06 WBC 16.5 H (4.8-10.8) K/uL RBC 3.67 L (4.40-5.90) Mil/uL Hgb 10.2 L (12.0-18.0) g/dL Hct 30.4 L (35.0-51.0) % MCV 82.9 (80.0-94.0) fL MCH 27.8 (27.0-31.0) pg MCHC 33.5 (33.0-37.0) g/dL RDW 15.9 H (11.5-14.5) % Plt Count 165 (130-400) K/uL MPV 10.2 (7.2-11.7) fL Neut % (Auto) 81.4 H (50.0-75.0) % Lymph % (Auto) 6.1 L (20.0-40.0) % [place] % (Auto) 10.0 (0.0-10.0) % Eos % (Auto) 2.2 (0.0-4.0) % Baso % (Auto) 0.3 (0.0-2.0) % Neut # (Auto) 13.4 H (1.8-7.0) K/uL Lymph # (Auto) 1.0 (1.0-4.3) K/uL [place] # (Auto) 1.6 H (0.0-0.8) K/uL Eos # (Auto) 0.4 (0.0-0.7) K/uL Baso # (Auto) 0.1 (0.0-0.2) K/uL Neutrophils % (Manual) 73 (50-75) % Band Neutrophils % 3 H (0-2) % Lymphocytes % (Manual) 9 L (20-40) % Monocytes % (Manual) 13 H (0-10) % Eosinophils % (Manual) 2 (0-4) % Platelet Estimate Normal (NORMAL) Hypochromasia (manual) Slight Poikilocytosis (manual Slight Anisocytosis (manual) Slight Ovalocytes Slight Puncture Site pCO2 (35-45) mm/Hg pO2 (80-100) mm/Hg HCO3 (21-28) mmol/L ABG pH (7.35-7.45) ABG Total CO2 (22-28) mmol/L ABG O2 Saturation (95-98) % ABG Base Excess (-2.0-3.0) mmol/L ABG Hemoglobin (11.7-17.4) g/dL ABG Carboxyhemoglobin (0.5-1.5) % POC ABG HHb (Measured) (0.0-5.0) % ABG Methemoglobin (0.0-3.0) % Joseph Test A-a O2 Difference mm/Hg Respiratory Index Hgb O2 Saturation (95.0-98.0) % Vent Mode Mechanical Rate FiO2 % Tidal Volume PEEP Sodium 143 (132-148) mmol/L Potassium 3.6 (3.6-5.2) mmol/L Chloride 115 H (98-107) mmol/L Carbon Dioxide 26 (22-30) mmol/L Anion Gap 7 L (10-20) BUN 11 (9-20) mg/dL Creatinine 0.6 L (0.8-1.5) mg/dL Est GFR ( Amer) > 60 Est GFR (Non-Af Amer) > 60 POC Glucose (mg/dL) 104 (65-110) mg/dL Random Glucose 108 (75-110) mg/dL Calcium 7.8 L (8.6-10.4) mg/dl Phosphorus 2.1 L (2.5-4.5) mg/dL Magnesium 1.6 (1.6-2.3) mg/dL Total Bilirubin 0.4 (0.2-1.3) mg/dL AST 40 (17-59) U/L ALT 28 (21-72) U/L Alkaline Phosphatase 54 (38-126) U/L Total Protein 5.1 L (6.3-8.3) g/dL Albumin 2.2 L (3.5-5.0) g/dL Globulin 2.9 (2.2-3.9) gm/dL Albumin/Globulin Ratio 0.7 L (1.0-2.1) Vancomycin Trough Ur Strep pneumoniae Ag (Not Detected) 03/17/18 03/16/18 03/16/18 Range/Units 05:30 23:55 17:37 WBC (4.8-10.8) K/uL RBC (4.40-5.90) Mil/uL Hgb (12.0-18.0) g/dL Hct (35.0-51.0) % MCV (80.0-94.0) fL MCH (27.0-31.0) pg MCHC (33.0-37.0) g/dL RDW (11.5-14.5) % Plt Count (130-400) K/uL MPV (7.2-11.7) fL Neut % (Auto) (50.0-75.0) % Lymph % (Auto) (20.0-40.0) % [place] % (Auto) (0.0-10.0) % Eos % (Auto) (0.0-4.0) % Baso % (Auto) (0.0-2.0) % Neut # (Auto) (1.8-7.0) K/uL Lymph # (Auto) (1.0-4.3) K/uL [place] # (Auto) (0.0-0.8) K/uL Eos # (Auto) (0.0-0.7) K/uL Baso # (Auto) (0.0-0.2) K/uL Neutrophils % (Manual) (50-75) % Band Neutrophils % (0-2) % Lymphocytes % (Manual) (20-40) % Monocytes % (Manual) (0-10) % Eosinophils % (Manual) (0-4) % Platelet Estimate (NORMAL) Hypochromasia (manual) Poikilocytosis (manual Anisocytosis (manual) Ovalocytes Puncture Site Lr pCO2 30 L (35-45) mm/Hg pO2 84 (80-100) mm/Hg HCO3 23.5 (21-28) mmol/L ABG pH 7.46 H (7.35-7.45) ABG Total CO2 22.2 (22-28) mmol/L ABG O2 Saturation 98.7 H (95-98) % ABG Base Excess -1.8 (-2.0-3.0) mmol/L ABG Hemoglobin 10.8 L (11.7-17.4) g/dL ABG Carboxyhemoglobin 1.7 H (0.5-1.5) % POC ABG HHb (Measured) 1.3 (0.0-5.0) % ABG Methemoglobin 1.6 (0.0-3.0) % Joseph Test Pos A-a O2 Difference 235.0 mm/Hg Respiratory Index 2.8 Hgb O2 Saturation 95.4 (95.0-98.0) % Vent Mode Prvc Mechanical Rate 14 FiO2 50.0 % Tidal Volume 500 PEEP 5 Sodium (132-148) mmol/L Potassium (3.6-5.2) mmol/L Chloride (98-107) mmol/L Carbon Dioxide (22-30) mmol/L Anion Gap (10-20) BUN (9-20) mg/dL Creatinine (0.8-1.5) mg/dL Est GFR ( Amer) Est GFR (Non-Af Amer) POC Glucose (mg/dL) 122 H 127 H (65-110) mg/dL Random Glucose (75-110) mg/dL Calcium (8.6-10.4) mg/dl Phosphorus (2.5-4.5) mg/dL Magnesium (1.6-2.3) mg/dL Total Bilirubin (0.2-1.3) mg/dL AST (17-59) U/L ALT (21-72) U/L Alkaline Phosphatase (38-126) U/L Total Protein (6.3-8.3) g/dL Albumin (3.5-5.0) g/dL Globulin (2.2-3.9) gm/dL Albumin/Globulin Ratio (1.0-2.1) Vancomycin Trough Ur Strep pneumoniae Ag (Not Detected) 03/16/18 03/16/18 03/14/18 Range/Units 11:40 08:57 17:23 WBC (4.8-10.8) K/uL RBC (4.40-5.90) Mil/uL Hgb (12.0-18.0) g/dL Hct (35.0-51.0) % MCV (80.0-94.0) fL MCH (27.0-31.0) pg MCHC (33.0-37.0) g/dL RDW (11.5-14.5) % Plt Count (130-400) K/uL MPV (7.2-11.7) fL Neut % (Auto) (50.0-75.0) % Lymph % (Auto) (20.0-40.0) % [place] % (Auto) (0.0-10.0) % Eos % (Auto) (0.0-4.0) % Baso % (Auto) (0.0-2.0) % Neut # (Auto) (1.8-7.0) K/uL Lymph # (Auto) (1.0-4.3) K/uL [place] # (Auto) (0.0-0.8) K/uL Eos # (Auto) (0.0-0.7) K/uL Baso # (Auto) (0.0-0.2) K/uL Neutrophils % (Manual) (50-75) % Band Neutrophils % (0-2) % Lymphocytes % (Manual) (20-40) % Monocytes % (Manual) (0-10) % Eosinophils % (Manual) (0-4) % Platelet Estimate (NORMAL) Hypochromasia (manual) Poikilocytosis (manual Anisocytosis (manual) Ovalocytes Puncture Site pCO2 (35-45) mm/Hg pO2 (80-100) mm/Hg HCO3 (21-28) mmol/L ABG pH (7.35-7.45) ABG Total CO2 (22-28) mmol/L ABG O2 Saturation (95-98) % ABG Base Excess (-2.0-3.0) mmol/L ABG Hemoglobin (11.7-17.4) g/dL ABG Carboxyhemoglobin (0.5-1.5) % POC ABG HHb (Measured) (0.0-5.0) % ABG Methemoglobin (0.0-3.0) % Joseph Test A-a O2 Difference mm/Hg Respiratory Index Hgb O2 Saturation (95.0-98.0) % Vent Mode Mechanical Rate FiO2 % Tidal Volume PEEP Sodium (132-148) mmol/L Potassium (3.6-5.2) mmol/L Chloride (98-107) mmol/L Carbon Dioxide (22-30) mmol/L Anion Gap (10-20) BUN (9-20) mg/dL Creatinine (0.8-1.5) mg/dL Est GFR ( Amer) Est GFR (Non-Af Amer) POC Glucose (mg/dL) 152 H (65-110) mg/dL Random Glucose (75-110) mg/dL Calcium (8.6-10.4) mg/dl Phosphorus (2.5-4.5) mg/dL Magnesium (1.6-2.3) mg/dL Total Bilirubin (0.2-1.3) mg/dL AST (17-59) U/L ALT (21-72) U/L Alkaline Phosphatase (38-126) U/L Total Protein (6.3-8.3) g/dL Albumin (3.5-5.0) g/dL Globulin (2.2-3.9) gm/dL Albumin/Globulin Ratio (1.0-2.1) Vancomycin Trough Cancelled Ur Strep pneumoniae Ag Not detected (Not Detected) Laboratory Results - last 24 hr 03/14/18 03/16/18 03/16/18 17:23 08:57 11:40 WBC RBC Hgb Hct MCV MCH MCHC RDW Plt Count MPV Neut % (Auto) Lymph % (Auto) [place] % (Auto) Eos % (Auto) Baso % (Auto) Neut # (Auto) Lymph # (Auto) [place] # (Auto) Eos # (Auto) Baso # (Auto) Neutrophils % (Manual) Band Neutrophils % Lymphocytes % (Manual) Monocytes % (Manual) Eosinophils % (Manual) Platelet Estimate Hypochromasia (manual) Poikilocytosis (manual Anisocytosis (manual) Ovalocytes Puncture Site pCO2 pO2 HCO3 ABG pH ABG Total CO2 ABG O2 Saturation ABG Base Excess ABG Hemoglobin ABG Carboxyhemoglobin POC ABG HHb (Measured) ABG Methemoglobin Joseph Test A-a O2 Difference Respiratory Index Hgb O2 Saturation Vent Mode Mechanical Rate FiO2 Tidal Volume PEEP Sodium Potassium Chloride Carbon Dioxide Anion Gap BUN Creatinine Est GFR ( Amer) Est GFR (Non-Af Amer) POC Glucose (mg/dL) 152 H Random Glucose Calcium Phosphorus Magnesium Total Bilirubin AST ALT Alkaline Phosphatase Total Protein Albumin Globulin Albumin/Globulin Ratio Vancomycin Trough Cancelled Ur Strep pneumoniae Ag Not detected 03/16/18 03/16/18 03/17/18 17:37 23:55 05:30 WBC RBC Hgb Hct MCV MCH MCHC RDW Plt Count MPV Neut % (Auto) Lymph % (Auto) [place] % (Auto) Eos % (Auto) Baso % (Auto) Neut # (Auto) Lymph # (Auto) [place] # (Auto) Eos # (Auto) Baso # (Auto) Neutrophils % (Manual) Band Neutrophils % Lymphocytes % (Manual) Monocytes % (Manual) Eosinophils % (Manual) Platelet Estimate Hypochromasia (manual) Poikilocytosis (manual Anisocytosis (manual) Ovalocytes Puncture Site Lr pCO2 30 L pO2 84 HCO3 23.5 ABG pH 7.46 H ABG Total CO2 22.2 ABG O2 Saturation 98.7 H ABG Base Excess -1.8 ABG Hemoglobin 10.8 L ABG Carboxyhemoglobin 1.7 H POC ABG HHb (Measured) 1.3 ABG Methemoglobin 1.6 Joseph Test Pos A-a O2 Difference 235.0 Respiratory Index 2.8 Hgb O2 Saturation 95.4 Vent Mode Prvc Mechanical Rate 14 FiO2 50.0 Tidal Volume 500 PEEP 5 Sodium Potassium Chloride Carbon Dioxide Anion Gap BUN Creatinine Est GFR ( Amer) Est GFR (Non-Af Amer) POC Glucose (mg/dL) 127 H 122 H Random Glucose Calcium Phosphorus Magnesium Total Bilirubin AST ALT Alkaline Phosphatase Total Protein Albumin Globulin Albumin/Globulin Ratio Vancomycin Trough Ur Strep pneumoniae Ag 03/17/18 03/17/18 03/17/18 06:06 06:12 06:12 WBC 16.5 H RBC 3.67 L Hgb 10.2 L Hct 30.4 L MCV 82.9 MCH 27.8 MCHC 33.5 RDW 15.9 H Plt Count 165 MPV 10.2 Neut % (Auto) 81.4 H Lymph % (Auto) 6.1 L [place] % (Auto) 10.0 Eos % (Auto) 2.2 Baso % (Auto) 0.3 Neut # (Auto) 13.4 H Lymph # (Auto) 1.0 [place] # (Auto) 1.6 H Eos # (Auto) 0.4 Baso # (Auto) 0.1 Neutrophils % (Manual) 73 Band Neutrophils % 3 H Lymphocytes % (Manual) 9 L Monocytes % (Manual) 13 H Eosinophils % (Manual) 2 Platelet Estimate Normal Hypochromasia (manual) Slight Poikilocytosis (manual Slight Anisocytosis (manual) Slight Ovalocytes Slight Puncture Site pCO2 pO2 HCO3 ABG pH ABG Total CO2 ABG O2 Saturation ABG Base Excess ABG Hemoglobin ABG Carboxyhemoglobin POC ABG HHb (Measured) ABG Methemoglobin Joseph Test A-a O2 Difference Respiratory Index Hgb O2 Saturation Vent Mode Mechanical Rate FiO2 Tidal Volume PEEP Sodium 143 Potassium 3.6 Chloride 115 H Carbon Dioxide 26 Anion Gap 7 L BUN 11 Creatinine 0.6 L Est GFR ( Amer) > 60 Est GFR (Non-Af Amer) > 60 POC Glucose (mg/dL) 104 Random Glucose 108 Calcium 7.8 L Phosphorus 2.1 L Magnesium 1.6 Total Bilirubin 0.4 AST 40 ALT 28 Alkaline Phosphatase 54 Total Protein 5.1 L Albumin 2.2 L Globulin 2.9 Albumin/Globulin Ratio 0.7 L Vancomycin Trough Ur Strep pneumoniae Ag Review of Systems - Review of Systems Systems not reviewed;Unavailable: Intubated Assessment/Plan - Assessment and Plan (Free Text) Assessment: 73 year old male with history of HTN, HLD, BPH, schizophrenia, CKD, CHF, dementia who was sent in for [facility] for AMS. CT brain found to have large left MCA infarct with elevated troponins. Neuro: -Repeat CT head showed subacute infarct in L frontal parietal lobe and R post lobe -Sedated on Fentanyl ggt - Wean sedation as tolerated -EEG did not show any active seizures -CT brain shows Large acute left MCA territory infarct as detailed above. No hemorrhage. 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 Pedro and agree that he is in a terminal state and further care is futile, they should document this in their progress notes. Then his attending physician may initiate palliative care orders, including withdrawal of life support and instituting comfort care orders. This is true regardless of POLST or AD status. No physician may be required to write orders that are medically futile and only serve to prolong a dying process" Pulm: -Intubated on PRVC plan to wean as tolerated -CXR - patchy atalectasis vs infiltrate with minimal L pleural effusion -Maintain SPO2 > 92% CV: - Currently off of Levo since the morning - Echo shows EF of 70%, severe pulm HTN -Cardiology consulted, help appreciated - not a candidate for cardiac cath at this time -Cont Crestor 10mg PO HS and ASA 81mg PO -maintain MAP > 65 -Troponins 1.31--> 1.65 --> 1.65 -proBNP 7420 GI: -tube feeds -Protonix 40mg IVP Renal: -Monitor I and O -Replete electrolytes as needed -NS IV fluids @ 125cc/hr IV -Flomax 0.4mg PO -Continue to monitor electrolyte, replete as needed Endo: -Maintain euglycemia ID: -UA: pos, WBC 16.5 -Currently on Vancomycin and daysi -ID Dr. England consulted, help appreciated -f/u sepic work up Heme: -H/H stable -Cont to monitor PPX: Protonix, and SCDs Case and plan was reviewed and discussed in detail with Dr Ramos. <Wilton Ramos - Last Filed: 03/17/18 18:13> CCU Objective - Vital Signs / Intake & Output Vital Signs (Last 4 hours): Vital Signs Temp Pulse Resp BP Pulse Ox 03/17/18 18:02 102 H 25 H 98/59 L 100 03/17/18 17:20 102 H 25 H 110/62 95 03/17/18 17:00 103 H 24 96 03/17/18 16:20 106 H 24 105/57 L 100 03/17/18 16:00 98.9 F 107 H 24 96/54 L 94 L 09/14/18 15:31 109 H 24 91/58 L 97 03/17/18 15:20 108 H 24 93/54 L 98 03/17/18 15:00 106 H 23 94 L 03/17/18 14:31 109 H 23 99/58 L 94 L 03/17/18 14:20 101 H 20 86/53 L 93 L Intake and Output (Last 8hrs): Intake & Output 03/17/18 03/17/18 03/17/18 06:59 14:59 22:59 Intake Total 1463.0 1218.8 480 Output Total 380 450 285 Balance 1083.0 768.8 195 Weight 132 lb 3.2 oz Intake: IV 229 5 Intake, IV Amount 834.0 813.8 280 Right Distal Port 680 590 280 Internal Jugular Right Medial Port 154.0 11.3 0 Internal Jugular Right Proximal Port 212.5 Internal Jugular Tube Feeding 400 400 200 Output: Urine 380 450 285 Urethral (Hawk) 380 450 285 - Medications Active Medications: Active Medications Generic Name Dose Route Start Last Admin Trade Name Freq PRN Reason Stop Dose Admin Acetaminophen 650 mg 03/16/18 17:31 Tylenol 650mg/20.3ml Solution Ud NG Q6 PRN Fever Aspirin 81 mg 03/15/18 10:00 03/17/18 09:09 Aspirin Chewable PO 81 mg DAILY GHANSHYAM Administration Meropenem 1 gm/ Sodium 100 mls @ 100 mls/hr 03/14/18 17:00 03/17/18 16:00 Chloride IVPB 100 mls/hr Q8H GHANSHYAM Administration Protocol Norepinephrine Bitartrate 4 mg 254 mls @ 15.24 mls/hr 03/15/18 15:53 08:00 / Sodium Chloride IV 0 mcg/min .[id number] PRN 0 mls/hr TITRATE PER MD ORDER Titration Protocol 4 MCG/MIN Sodium Chloride 1,000 mls @ 70 mls/hr 03/16/18 11:49 03/17/18 16:00 Sodium Chloride 0.9% IV Not Given .[id number] GHANSHYAM Levetiracetam 1,000 mg/ 110 mls @ 420 mls/hr 03/16/18 15:30 03/17/18 14:30 Dextrose IVPB 420 mls/hr Q12H GHANSHYAM Administration Pantoprazole Sodium 40 mg 03/15/18 10:00 03/17/18 09:09 Protonix Inj IVP 40 mg DAILY GHANSHYAM Administration Rosuvastatin Calcium 10 mg 03/14/18 22:00 03/16/18 21:09 Crestor PO 10 mg HS GHANSHYAM Administration Tamsulosin HCl 0.4 mg 03/15/18 10:00 03/17/18 09:10 Flomax PO 0.4 mg DAILY GHANSHYAM Administration Valproate Sodium 1,000 mg 03/16/18 14:34 03/17/18 09:09 Depakene Oral Soln PO 1,000 mg BID GHANSHYAM Administration - Patient Studies Lab Studies: Microbiology Studies 03/16/18 18:13 Urine Culture - Final Urine No Growth (<1,000 CFU/ML) 03/14/18 09:35 Blood Culture - Preliminary Blood NO GROWTH AFTER 3 DAYS 03/14/18 09:00 Blood Culture - Preliminary Blood NO GROWTH AFTER 3 DAYS 03/16/18 19:17 Gram Stain - Final Sputum Lab Studies 03/17/18 03/17/18 03/17/18 Range/Units 17:53 11:36 06:12 WBC (4.8-10.8) K/uL RBC (4.40-5.90) Mil/uL Hgb (12.0-18.0) g/dL Hct (35.0-51.0) % MCV (80.0-94.0) fL MCH (27.0-31.0) pg MCHC (33.0-37.0) g/dL RDW (11.5-14.5) % Plt Count (130-400) K/uL MPV (7.2-11.7) fL Neut % (Auto) (50.0-75.0) % Lymph % (Auto) (20.0-40.0) % [place] % (Auto) (0.0-10.0) % Eos % (Auto) (0.0-4.0) % Baso % (Auto) (0.0-2.0) % Neut # (Auto) (1.8-7.0) K/uL Lymph # (Auto) (1.0-4.3) K/uL [place] # (Auto) (0.0-0.8) K/uL Eos # (Auto) (0.0-0.7) K/uL Baso # (Auto) (0.0-0.2) K/uL Neutrophils % (Manual) (50-75) % Band Neutrophils % (0-2) % Lymphocytes % (Manual) (20-40) % Monocytes % (Manual) (0-10) % Eosinophils % (Manual) (0-4) % Platelet Estimate (NORMAL) Hypochromasia (manual) Poikilocytosis (manual Anisocytosis (manual) Ovalocytes Puncture Site pCO2 (35-45) mm/Hg pO2 (80-100) mm/Hg HCO3 (21-28) mmol/L ABG pH (7.35-7.45) ABG Total CO2 (22-28) mmol/L ABG O2 Saturation (95-98) % ABG Base Excess (-2.0-3.0) mmol/L ABG Hemoglobin (11.7-17.4) g/dL ABG Carboxyhemoglobin (0.5-1.5) % POC ABG HHb (Measured) (0.0-5.0) % ABG Methemoglobin (0.0-3.0) % Joseph Test A-a O2 Difference mm/Hg Respiratory Index Hgb O2 Saturation (95.0-98.0) % Vent Mode Mechanical Rate FiO2 % Tidal Volume PEEP Sodium 143 (132-148) mmol/L Potassium 3.6 (3.6-5.2) mmol/L Chloride 115 H (98-107) mmol/L Carbon Dioxide 26 (22-30) mmol/L Anion Gap 7 L (10-20) BUN 11 (9-20) mg/dL Creatinine 0.6 L (0.8-1.5) mg/dL Est GFR ( Amer) > 60 Est GFR (Non-Af Amer) > 60 POC Glucose (mg/dL) 115 H 140 H (65-110) mg/dL Random Glucose 108 (75-110) mg/dL Calcium 7.8 L (8.6-10.4) mg/dl Phosphorus 2.1 L (2.5-4.5) mg/dL Magnesium 1.6 (1.6-2.3) mg/dL Total Bilirubin 0.4 (0.2-1.3) mg/dL AST 40 (17-59) U/L ALT 28 (21-72) U/L Alkaline Phosphatase 54 (38-126) U/L Total Protein 5.1 L (6.3-8.3) g/dL Albumin 2.2 L (3.5-5.0) g/dL Globulin 2.9 (2.2-3.9) gm/dL Albumin/Globulin Ratio 0.7 L (1.0-2.1) Ur Strep pneumoniae Ag (Not Detected) 03/17/18 03/17/18 03/17/18 Range/Units 06:12 06:06 05:30 WBC 16.5 H (4.8-10.8) K/uL RBC 3.67 L (4.40-5.90) Mil/uL Hgb 10.2 L (12.0-18.0) g/dL Hct 30.4 L (35.0-51.0) % MCV 82.9 (80.0-94.0) fL MCH 27.8 (27.0-31.0) pg MCHC 33.5 (33.0-37.0) g/dL RDW 15.9 H (11.5-14.5) % Plt Count 165 (130-400) K/uL MPV 10.2 (7.2-11.7) fL Neut % (Auto) 81.4 H (50.0-75.0) % Lymph % (Auto) 6.1 L (20.0-40.0) % [place] % (Auto) 10.0 (0.0-10.0) % Eos % (Auto) 2.2 (0.0-4.0) % Baso % (Auto) 0.3 (0.0-2.0) % Neut # (Auto) 13.4 H (1.8-7.0) K/uL Lymph # (Auto) 1.0 (1.0-4.3) K/uL [place] # (Auto) 1.6 H (0.0-0.8) K/uL Eos # (Auto) 0.4 (0.0-0.7) K/uL Baso # (Auto) 0.1 (0.0-0.2) K/uL Neutrophils % (Manual) 73 (50-75) % Band Neutrophils % 3 H (0-2) % Lymphocytes % (Manual) 9 L (20-40) % Monocytes % (Manual) 13 H (0-10) % Eosinophils % (Manual) 2 (0-4) % Platelet Estimate Normal (NORMAL) Hypochromasia (manual) Slight Poikilocytosis (manual Slight Anisocytosis (manual) Slight Ovalocytes Slight Puncture Site Lr pCO2 30 L (35-45) mm/Hg pO2 84 (80-100) mm/Hg HCO3 23.5 (21-28) mmol/L ABG pH 7.46 H (7.35-7.45) ABG Total CO2 22.2 (22-28) mmol/L ABG O2 Saturation 98.7 H (95-98) % ABG Base Excess -1.8 (-2.0-3.0) mmol/L ABG Hemoglobin 10.8 L (11.7-17.4) g/dL ABG Carboxyhemoglobin 1.7 H (0.5-1.5) % POC ABG HHb (Measured) 1.3 (0.0-5.0) % ABG Methemoglobin 1.6 (0.0-3.0) % Joseph Test Pos A-a O2 Difference 235.0 mm/Hg Respiratory Index 2.8 Hgb O2 Saturation 95.4 (95.0-98.0) % Vent Mode Prvc Mechanical Rate 14 FiO2 50.0 % Tidal Volume 500 PEEP 5 Sodium (132-148) mmol/L Potassium (3.6-5.2) mmol/L Chloride (98-107) mmol/L Carbon Dioxide (22-30) mmol/L Anion Gap (10-20) BUN (9-20) mg/dL Creatinine (0.8-1.5) mg/dL Est GFR ( Amer) Est GFR (Non-Af Amer) POC Glucose (mg/dL) 104 (65-110) mg/dL Random Glucose (75-110) mg/dL Calcium (8.6-10.4) mg/dl Phosphorus (2.5-4.5) mg/dL Magnesium (1.6-2.3) mg/dL Total Bilirubin (0.2-1.3) mg/dL AST (17-59) U/L ALT (21-72) U/L Alkaline Phosphatase (38-126) U/L Total Protein (6.3-8.3) g/dL Albumin (3.5-5.0) g/dL Globulin (2.2-3.9) gm/dL Albumin/Globulin Ratio (1.0-2.1) Ur Strep pneumoniae Ag (Not Detected) 03/16/18 03/14/18 Range/Units 23:55 17:23 WBC (4.8-10.8) K/uL RBC (4.40-5.90) Mil/uL Hgb (12.0-18.0) g/dL Hct (35.0-51.0) % MCV (80.0-94.0) fL MCH (27.0-31.0) pg MCHC (33.0-37.0) g/dL RDW (11.5-14.5) % Plt Count (130-400) K/uL MPV (7.2-11.7) fL Neut % (Auto) (50.0-75.0) % Lymph % (Auto) (20.0-40.0) % [place] % (Auto) (0.0-10.0) % Eos % (Auto) (0.0-4.0) % Baso % (Auto) (0.0-2.0) % Neut # (Auto) (1.8-7.0) K/uL Lymph # (Auto) (1.0-4.3) K/uL [place] # (Auto) (0.0-0.8) K/uL Eos # (Auto) (0.0-0.7) K/uL Baso # (Auto) (0.0-0.2) K/uL Neutrophils % (Manual) (50-75) % Band Neutrophils % (0-2) % Lymphocytes % (Manual) (20-40) % Monocytes % (Manual) (0-10) % Eosinophils % (Manual) (0-4) % Platelet Estimate (NORMAL) Hypochromasia (manual) Poikilocytosis (manual Anisocytosis (manual) Ovalocytes Puncture Site pCO2 (35-45) mm/Hg pO2 (80-100) mm/Hg HCO3 (21-28) mmol/L ABG pH (7.35-7.45) ABG Total CO2 (22-28) mmol/L ABG O2 Saturation (95-98) % ABG Base Excess (-2.0-3.0) mmol/L ABG Hemoglobin (11.7-17.4) g/dL ABG Carboxyhemoglobin (0.5-1.5) % POC ABG HHb (Measured) (0.0-5.0) % ABG Methemoglobin (0.0-3.0) % Joseph Test A-a O2 Difference mm/Hg Respiratory Index Hgb O2 Saturation (95.0-98.0) % Vent Mode Mechanical Rate FiO2 % Tidal Volume PEEP Sodium (132-148) mmol/L Potassium (3.6-5.2) mmol/L Chloride (98-107) mmol/L Carbon Dioxide (22-30) mmol/L Anion Gap (10-20) BUN (9-20) mg/dL Creatinine (0.8-1.5) mg/dL Est GFR ( Amer) Est GFR (Non-Af Amer) POC Glucose (mg/dL) 122 H (65-110) mg/dL Random Glucose (75-110) mg/dL Calcium (8.6-10.4) mg/dl Phosphorus (2.5-4.5) mg/dL Magnesium (1.6-2.3) mg/dL Total Bilirubin (0.2-1.3) mg/dL AST (17-59) U/L ALT (21-72) U/L Alkaline Phosphatase (38-126) U/L Total Protein (6.3-8.3) g/dL Albumin (3.5-5.0) g/dL Globulin (2.2-3.9) gm/dL Albumin/Globulin Ratio (1.0-2.1) Ur Strep pneumoniae Ag Not detected (Not Detected) Laboratory Results - last 24 hr 03/14/18 03/16/18 03/17/18 17:23 23:55 05:30 WBC RBC Hgb Hct MCV MCH MCHC RDW Plt Count MPV Neut % (Auto) Lymph % (Auto) [place] % (Auto) Eos % (Auto) Baso % (Auto) Neut # (Auto) Lymph # (Auto) [place] # (Auto) Eos # (Auto) Baso # (Auto) Neutrophils % (Manual) Band Neutrophils % Lymphocytes % (Manual) Monocytes % (Manual) Eosinophils % (Manual) Platelet Estimate Hypochromasia (manual) Poikilocytosis (manual Anisocytosis (manual) Ovalocytes Puncture Site Lr pCO2 30 L pO2 84 HCO3 23.5 ABG pH 7.46 H ABG Total CO2 22.2 ABG O2 Saturation 98.7 H ABG Base Excess -1.8 ABG Hemoglobin 10.8 L ABG Carboxyhemoglobin 1.7 H POC ABG HHb (Measured) 1.3 ABG Methemoglobin 1.6 Joseph Test Pos A-a O2 Difference 235.0 Respiratory Index 2.8 Hgb O2 Saturation 95.4 Vent Mode Prvc Mechanical Rate 14 FiO2 50.0 Tidal Volume 500 PEEP 5 Sodium Potassium Chloride Carbon Dioxide Anion Gap BUN Creatinine Est GFR ( Amer) Est GFR (Non-Af Amer) POC Glucose (mg/dL) 122 H Random Glucose Calcium Phosphorus Magnesium Total Bilirubin AST ALT Alkaline Phosphatase Total Protein Albumin Globulin Albumin/Globulin Ratio Ur Strep pneumoniae Ag Not detected 03/17/18 03/17/18 03/17/18 06:06 06:12 06:12 WBC 16.5 H RBC 3.67 L Hgb 10.2 L Hct 30.4 L MCV 82.9 MCH 27.8 MCHC 33.5 RDW 15.9 H Plt Count 165 MPV 10.2 Neut % (Auto) 81.4 H Lymph % (Auto) 6.1 L [place] % (Auto) 10.0 Eos % (Auto) 2.2 Baso % (Auto) 0.3 Neut # (Auto) 13.4 H Lymph # (Auto) 1.0 [place] # (Auto) 1.6 H Eos # (Auto) 0.4 Baso # (Auto) 0.1 Neutrophils % (Manual) 73 Band Neutrophils % 3 H Lymphocytes % (Manual) 9 L Monocytes % (Manual) 13 H Eosinophils % (Manual) 2 Platelet Estimate Normal Hypochromasia (manual) Slight Poikilocytosis (manual Slight Anisocytosis (manual) Slight Ovalocytes Slight Puncture Site pCO2 pO2 HCO3 ABG pH ABG Total CO2 ABG O2 Saturation ABG Base Excess ABG Hemoglobin ABG Carboxyhemoglobin POC ABG HHb (Measured) ABG Methemoglobin Joseph Test A-a O2 Difference Respiratory Index Hgb O2 Saturation Vent Mode Mechanical Rate FiO2 Tidal Volume PEEP Sodium 143 Potassium 3.6 Chloride 115 H Carbon Dioxide 26 Anion Gap 7 L BUN 11 Creatinine 0.6 L Est GFR ( Amer) > 60 Est GFR (Non-Af Amer) > 60 POC Glucose (mg/dL) 104 Random Glucose 108 Calcium 7.8 L Phosphorus 2.1 L Magnesium 1.6 Total Bilirubin 0.4 AST 40 ALT 28 Alkaline Phosphatase 54 Total Protein 5.1 L Albumin 2.2 L Globulin 2.9 Albumin/Globulin Ratio 0.7 L Ur Strep pneumoniae Ag 03/17/18 03/17/18 11:36 17:53 WBC RBC Hgb Hct MCV MCH MCHC RDW Plt Count MPV Neut % (Auto) Lymph % (Auto) [place] % (Auto) Eos % (Auto) Baso % (Auto) Neut # (Auto) Lymph # (Auto) [place] # (Auto) Eos # (Auto) Baso # (Auto) Neutrophils % (Manual) Band Neutrophils % Lymphocytes % (Manual) Monocytes % (Manual) Eosinophils % (Manual) Platelet Estimate Hypochromasia (manual) Poikilocytosis (manual Anisocytosis (manual) Ovalocytes Puncture Site pCO2 pO2 HCO3 ABG pH ABG Total CO2 ABG O2 Saturation ABG Base Excess ABG Hemoglobin ABG Carboxyhemoglobin POC ABG HHb (Measured) ABG Methemoglobin Joseph Test A-a O2 Difference Respiratory Index Hgb O2 Saturation Vent Mode Mechanical Rate FiO2 Tidal Volume PEEP Sodium Potassium Chloride Carbon Dioxide Anion Gap BUN Creatinine Est GFR ( Amer) Est GFR (Non-Af Amer) POC Glucose (mg/dL) 140 H 115 H Random Glucose Calcium Phosphorus Magnesium Total Bilirubin AST ALT Alkaline Phosphatase Total Protein Albumin Globulin Albumin/Globulin Ratio Ur Strep pneumoniae Ag Attending/Attestation - Attestation I have personally seen and examined this patient.: Yes I have fully participated in the care of the patient.: Yes I have reviewed all pertinent clinical information: Yes Notes (Text): 03/17/18 18:11 I have seen and examined the patient. Medical records, lab studies, and imaging were reviewed by me and a management plan was formulated on multidisciplinary rounds with resident Dr. Cunha. I agree with their documented assessment and plan. Patient is in a persistent vegetative state. Will continue to monitor. Unlikely he will wake up in any meaningful way given the extent of his stroke. His friend had made it clear he never wanted to be kept alive if there was no hope of meaningful recovery. This case has been discussed with our ethics committee and if there is 2 physician consent to withdrawal of care the patient will be withdrawn. Discussed with Dr. Hunter who is in agreement. I will reassess tomorrow. Critical Care Time 35 minutes. Multi-disciplinary rounds were performed with house staff, nursing, speech therapy, respiratory therapy, pharmacy and nutrition with integrated input from the primary team/attending and other consulting services. The documented time is cumulative and includes review of patient data/exams/labs/chart review and examination of the patient on rounds and throughout the day; time is exclusive of any procedures or teaching time.
--- NOTE | 2018-03-17 12:30 | CP.PCM.PN ---
Subjective - Date & Time of Evaluation Date of Evaluation: 03/17/18 Time of Evaluation: 09:50 - Subjective Subjective: patient seen and examined remained intubated on ventilatory support Patient is off Levophed Objective - Vital Signs/Intake and Output Vital Signs (last 24 hours): Temp Pulse Resp BP Pulse Ox 98.5 F 103 H 24 96/55 L 95 03/17/18 07:56 03/17/18 10:37 03/17/18 10:37 03/17/18 10:37 03/17/18 10:37 Intake and Output: 03/17/18 03/17/18 06:59 18:59 Intake Total 2033.0 538.8 Output Total 580 200 Balance 1453.0 338.8 - Medications Medications: Current Medications Acetaminophen (Tylenol 650mg/20.3ml Solution Ud) 650 mg NG Q6 PRN PRN Reason: Fever Aspirin (Aspirin Chewable) 81 mg PO DAILY [facility] Last Admin: 03/17/18 09:09 Dose: 81 mg Vancomycin/Sodium Chloride (Vancomycin 1 Gm/Ns 200 Ml) 1 gm in 200 mls @ 133.333 mls/hr IVPB Q12H [facility] PRN Reason: Protocol Stop: 03/19/18 16:01 Last Admin: 03/17/18 04:33 Dose: 133.333 mls/hr Fentanyl Citrate 2,500 mcg/ (Sodium Chloride) 250 mls @ 12.97 mls/hr IV .[id number] [facility]; 2 MCG/KG/HR PRN Reason: Protocol Last Titration: 03/16/18 11:00 Dose: 0 mcg/kg/hr, 0 mls/hr Meropenem 1 gm/ Sodium (Chloride) 100 mls @ 100 mls/hr IVPB Q8H [facility] PRN Reason: Protocol Last Admin: 03/17/18 09:00 Dose: 100 mls/hr Norepinephrine Bitartrate 4 mg (/ Sodium Chloride) 254 mls @ 15.24 mls/hr IV .[id number] PRN; Protocol; 4 MCG/MIN PRN Reason: TITRATE PER MD ORDER Last Titration: 03/17/18 08:00 Dose: 0 mcg/min, 0 mls/hr Sodium Chloride (Sodium Chloride 0.9%) 1,000 mls @ 70 mls/hr IV .[id number] [facility] Last Admin: 03/17/18 04:37 Dose: 70 mls/hr Levetiracetam 1,000 mg/ (Dextrose) 110 mls @ 420 mls/hr IVPB Q12H [facility] Last Admin: 03/17/18 03:25 Dose: 420 mls/hr Potassium Phosphate 15 mmole/ (Sodium Chloride) 255 mls @ 42.5 mls/hr IVPB ONCE ONE Stop: 03/17/18 15:29 Last Admin: 03/17/18 09:30 Dose: 42.5 mls/hr Pantoprazole Sodium (Protonix Inj) 40 mg IVP DAILY [facility] Last Admin: 03/17/18 09:09 Dose: 40 mg Rosuvastatin Calcium (Crestor) 10 mg PO HS [facility] Last Admin: 03/16/18 21:09 Dose: 10 mg Tamsulosin HCl (Flomax) 0.4 mg PO DAILY [facility] Last Admin: 03/17/18 09:10 Dose: 0.4 mg Valproate Sodium (Depakene Oral Soln) 1,000 mg PO BID [facility] Last Admin: 03/17/18 09:09 Dose: 1,000 mg - Labs Labs: 03/17/18 06:12 03/17/18 06:12 PT 17.4 SECONDS (9.7-12.2) H 03/14/18 09:30 INR 1.6 03/14/18 09:30 APTT 31 SECONDS (21-34) 03/14/18 09:30 - Head Exam Head Exam: ATRAUMATIC, NORMOCEPHALIC - ENT Exam ENT Exam: Mucous Membranes Moist - Neck Exam Neck Exam: Normal Inspection - Cardiovascular Exam Cardiovascular Exam: REGULAR RHYTHM - GI/Abdominal Exam GI & Abdominal Exam: Soft, Normal Bowel Sounds - Extremities Exam Extremities Exam: Normal Inspection - Neurological Exam Neurological Exam: Altered Assessment and Plan (1) Respiratory failure requiring intubation Assessment & Plan: cont ventilatory support On IV antibiotics but cultures negat Followup chest x-ray and ABG Status: Acute (2) COPD (chronic obstructive pulmonary disease) Status: Acute (3) Pneumonia involving right lung Status: Acute (4) UTI (lower urinary tract infection) Status: Acute
--- NOTE | 2018-03-17 19:23 | CP.PCM.PN ---
Subjective - Date & Time of Evaluation Date of Evaluation: 03/17/18 Time of Evaluation: 14:00 - Subjective Subjective: dictated Objective - Vital Signs/Intake and Output Vital Signs (last 24 hours): Temp Pulse Resp BP Pulse Ox 98.9 F 102 H 25 H 98/59 L 100 03/17/18 16:00 03/17/18 18:02 03/17/18 18:02 03/17/18 18:02 03/17/18 18:02 Intake and Output: 03/17/18 03/18/18 18:59 06:59 Intake Total 1698.8 Output Total 735 Balance 963.8 - Medications Medications: Current Medications Acetaminophen (Tylenol 650mg/20.3ml Solution Ud) 650 mg NG Q6 PRN PRN Reason: Fever Aspirin (Aspirin Chewable) 81 mg PO DAILY [facility] Last Admin: 03/17/18 09:09 Dose: 81 mg Meropenem 1 gm/ Sodium (Chloride) 100 mls @ 100 mls/hr IVPB Q8H [facility] PRN Reason: Protocol Last Admin: 03/17/18 16:00 Dose: 100 mls/hr Norepinephrine Bitartrate 4 mg (/ Sodium Chloride) 254 mls @ 15.24 mls/hr IV .[id number] PRN; Protocol; 4 MCG/MIN PRN Reason: TITRATE PER MD ORDER Last Titration: 03/17/18 08:00 Dose: 0 mcg/min, 0 mls/hr Sodium Chloride (Sodium Chloride 0.9%) 1,000 mls @ 70 mls/hr IV .[id number] [facility] Last Admin: 03/17/18 16:00 Dose: Not Given Levetiracetam 1,000 mg/ (Dextrose) 110 mls @ 420 mls/hr IVPB Q12H [facility] Last Admin: 03/17/18 14:30 Dose: 420 mls/hr Pantoprazole Sodium (Protonix Inj) 40 mg IVP DAILY [facility] Last Admin: 03/17/18 09:09 Dose: 40 mg Rosuvastatin Calcium (Crestor) 10 mg PO HS [facility] Last Admin: 03/16/18 21:09 Dose: 10 mg Tamsulosin HCl (Flomax) 0.4 mg PO DAILY [facility] Last Admin: 03/17/18 09:10 Dose: 0.4 mg Valproate Sodium (Depakene Oral Soln) 1,000 mg PO BID [facility] Last Admin: 03/17/18 18:14 Dose: 1,000 mg - Labs Labs: 03/17/18 06:12 03/17/18 06:12 PT 17.4 SECONDS (9.7-12.2) H 03/14/18 09:30 INR 1.6 03/14/18 09:30 APTT 31 SECONDS (21-34) 03/14/18 09:30
--- NOTE | 2018-03-17 22:41 | PN ---
DATE: 03/17/2018 SUBJECTIVE: The patient is afebrile. He is on ventilator. He is sick. The patient is not responding. He has a large . PHYSICAL EXAMINATION: VITAL SIGNS: BP 93/48, pulse 84, respiratory rate 21, and temperature 98. LUNGS: Clear. Bilateral transmitted breath sounds. CARDIOVASCULAR SYSTEM: S1 and S2, regular. NEUROLOGIC: He is unresponsive. ASSESSMENT: 1. Cerebrovascular accident. 2. Respiratory failure. 3. Coronary artery disease status post myocardial infarction. PLAN: Continue current medications. Monitor the patient. Liborio Hunter MD
--- NOTE | 2018-03-17 23:31 | CP.PCM.PN ---
Subjective - Date & Time of Evaluation Date of Evaluation: 03/17/18 Time of Evaluation: 13:05 - Subjective Subjective: Patient seen and evaluated No new events noted Patient not in distress Objective - Vital Signs/Intake and Output Vital Signs (last 24 hours): Temp Pulse Resp BP Pulse Ox 99.1 F 101 H 23 104/57 L 99 03/17/18 20:00 03/17/18 22:20 03/17/18 22:20 03/17/18 22:20 03/17/18 22:20 Intake and Output: 03/17/18 03/18/18 18:59 06:59 Intake Total 1698.8 600 Output Total 735 270 Balance 963.8 330 - Medications Medications: Current Medications Acetaminophen (Tylenol 650mg/20.3ml Solution Ud) 650 mg NG Q6 PRN PRN Reason: Fever Aspirin (Aspirin Chewable) 81 mg PO DAILY [facility] Last Admin: 03/17/18 09:09 Dose: 81 mg Meropenem 1 gm/ Sodium (Chloride) 100 mls @ 100 mls/hr IVPB Q8H [facility] PRN Reason: Protocol Last Admin: 03/17/18 16:00 Dose: 100 mls/hr Norepinephrine Bitartrate 4 mg (/ Sodium Chloride) 254 mls @ 15.24 mls/hr IV .[id number] PRN; Protocol; 4 MCG/MIN PRN Reason: TITRATE PER MD ORDER Last Titration: 03/17/18 08:00 Dose: 0 mcg/min, 0 mls/hr Sodium Chloride (Sodium Chloride 0.9%) 1,000 mls @ 70 mls/hr IV .[id number] [facility] Last Admin: 03/17/18 16:00 Dose: Not Given Levetiracetam 1,000 mg/ (Dextrose) 110 mls @ 420 mls/hr IVPB Q12H [facility] Last Admin: 03/17/18 14:30 Dose: 420 mls/hr Vancomycin/Sodium Chloride (Vancomycin 1 Gm/Ns 200 Ml) 1 gm in 200 mls @ 133 mls/hr IVPB Q24H [facility] PRN Reason: Protocol Stop: 03/23/18 16:01 Pantoprazole Sodium (Protonix Inj) 40 mg IVP DAILY [facility] Last Admin: 03/17/18 09:09 Dose: 40 mg Rosuvastatin Calcium (Crestor) 10 mg PO HS [facility] Last Admin: 03/17/18 21:53 Dose: 10 mg Tamsulosin HCl (Flomax) 0.4 mg PO DAILY [facility] Last Admin: 03/17/18 09:10 Dose: 0.4 mg Valproate Sodium (Depakene Oral Soln) 1,000 mg PO BID [facility] Last Admin: 03/17/18 18:14 Dose: 1,000 mg - Labs Labs: 03/17/18 06:12 03/17/18 06:12 PT 17.4 SECONDS (9.7-12.2) H 03/14/18 09:30 INR 1.6 03/14/18 09:30 APTT 31 SECONDS (21-34) 03/14/18 09:30
--- NOTE | 2018-03-18 00:28 | CP.PCM.PN ---
Subjective - Date & Time of Evaluation Date of Evaluation: 03/17/18 - Subjective Subjective: UNRESPONSIVE, MAY NEED TERMINAL EXTUBATION, FEVER Objective - Vital Signs/Intake and Output Vital Signs (last 24 hours): Temp Pulse Resp BP Pulse Ox 99.1 F 101 H 23 104/57 L 99 03/17/18 20:00 03/17/18 22:20 03/17/18 22:20 03/17/18 22:20 03/17/18 22:20 Intake and Output: 03/17/18 03/18/18 18:59 06:59 Intake Total 1698.8 600 Output Total 735 270 Balance 963.8 330 - Medications Medications: Current Medications Acetaminophen (Tylenol 650mg/20.3ml Solution Ud) 650 mg NG Q6 PRN PRN Reason: Fever Aspirin (Aspirin Chewable) 81 mg PO DAILY [facility] Last Admin: 03/17/18 09:09 Dose: 81 mg Meropenem 1 gm/ Sodium (Chloride) 100 mls @ 100 mls/hr IVPB Q8H [facility] PRN Reason: Protocol Last Admin: 03/17/18 16:00 Dose: 100 mls/hr Norepinephrine Bitartrate 4 mg (/ Sodium Chloride) 254 mls @ 15.24 mls/hr IV .[id number] PRN; Protocol; 4 MCG/MIN PRN Reason: TITRATE PER MD ORDER Last Titration: 03/17/18 08:00 Dose: 0 mcg/min, 0 mls/hr Sodium Chloride (Sodium Chloride 0.9%) 1,000 mls @ 70 mls/hr IV .[id number] [facility] Last Admin: 03/17/18 16:00 Dose: Not Given Levetiracetam 1,000 mg/ (Dextrose) 110 mls @ 420 mls/hr IVPB Q12H [facility] Last Admin: 03/17/18 14:30 Dose: 420 mls/hr Vancomycin/Sodium Chloride (Vancomycin 1 Gm/Ns 200 Ml) 1 gm in 200 mls @ 133 mls/hr IVPB Q24H [facility] PRN Reason: Protocol Stop: 03/23/18 16:01 Pantoprazole Sodium (Protonix Inj) 40 mg IVP DAILY [facility] Last Admin: 03/17/18 09:09 Dose: 40 mg Rosuvastatin Calcium (Crestor) 10 mg PO HS [facility] Last Admin: 03/17/18 21:53 Dose: 10 mg Tamsulosin HCl (Flomax) 0.4 mg PO DAILY [facility] Last Admin: 03/17/18 09:10 Dose: 0.4 mg Valproate Sodium (Depakene Oral Soln) 1,000 mg PO BID [facility] Last Admin: 03/17/18 18:14 Dose: 1,000 mg - Labs Labs: 03/17/18 06:12 03/17/18 06:12 PT 17.4 SECONDS (9.7-12.2) H 03/14/18 09:30 INR 1.6 03/14/18 09:30 APTT 31 SECONDS (21-34) 03/14/18 09:30 - Constitutional Appears: Chronically Ill - Head Exam Head Exam: NORMAL INSPECTION, NORMOCEPHALIC - ENT Exam ENT Exam: Mucous Membranes Moist, Normal Exam - Respiratory Exam Respiratory Exam: NORMAL BREATHING PATTERN - Cardiovascular Exam Cardiovascular Exam: REGULAR RHYTHM, +S1, +S2 - GI/Abdominal Exam GI & Abdominal Exam: Normal Bowel Sounds - Extremities Exam Extremities Exam: Normal Capillary Refill - Neurological Exam Neurological Exam: Abnormal Gait, Altered Assessment and Plan (1) CVA (cerebral vascular accident) Status: Acute (2) Pneumonia involving right lung Status: Acute (3) BPH (benign prostatic hyperplasia) Status: Chronic (4) CHF (congestive heart failure) Status: Chronic
--- NOTE | 2018-03-18 00:54 | PN ---
DATE: 03/17/2018 SUBJECTIVE: The patient remains intubated, unresponsive. PHYSICAL EXAMINATION: VITAL SIGNS: His blood pressure is on the low side, 98/59; heart rate of 103; respirations are 24; and saturation is 96%. The patient is intubated. T-max is 98.9. However, there is not much change noted since admission, and he is on antibiotics at this time. GENERAL: He is drowsy. NECK: Supple. LUNGS: Clear. No crackles or rales heard. HEART: S1, S2 are regular. No murmurs appreciated. ABDOMEN: Soft, nontender. No guarding, no rigidity present. NEUROLOGIC: He does have a massive stroke. LABORATORY DATA: Labs are noted. Labs show white count is 16.5 today. White count is increasing, hemoglobin is 10.2, hematocrit 30.4, platelet count is 165. We find that the sodium is 143, potassium 3.6, chlorides are 115, CO2 is 26, BUN is 11, creatinine 0.6. All the septic workup is negative. Sputum culture on 03/16/2018 is pending at this time. Chest x-ray shows worsening airspace disease in the left lower lobe and worsening left pleural effusion. ASSESSMENT AND PLAN: His left lower lobe has worsening disease. antibiotics, he is only on meropenem. We will place him on vancomycin also and we will follow. I think his levels were high, it was 22.5 yesterday, so we are going to look for the level. We will put him on vancomycin 1 g a day instead of daily. The patient's sputum culture is pending at this time. We will follow. The patient has aspiration pneumonia, probably came in with a stroke and also has troponins positive and remains with respiratory failure at this time and has a history of urinary tract infections in the past and psychiatric issues. Jayshree England MD
[2018-03-18] MEDS: Meropenem 1 GM in Sodium Chloride 0.9% 100 ML IVPB SCH ×3 (01:08→17:13)
[2018-03-18] MEDS: Sodium Chloride 0.9% 1,000 ML IV SCH ×2 (01:09→07:35)
[2018-03-18 05:40] LABS: ABG ALLEN TEST POS; ARTERIAL BLOOD GAS HCO3 24.8 mmol/L (21-28); ARTERIAL BLOOD GAS O2 SAT 99.7 % (95-98); ARTERIAL BLOOD GAS PCO2 28 mm/Hg (35-45); ARTERIAL BLOOD GAS PO2 123 mm/Hg (80-100); ARTERIAL BLOOD GAS TCO2 22.7 mmol/L (22-28)
[2018-03-18 06:26] LABS: BASO # 0.1 K/uL (0.0-0.2); BASO % 0.6 % (0.0-2.0); EOS # 0.3 K/uL (0.0-0.7); EOS % 2.8 % (0.0-4.0); HEMOGLOBIN 9.4 g/dL (12.0-18.0); LYMPH # 0.7 K/uL (1.0-4.3); LYMPH % 6.8 % (20.0-40.0); MEAN CELL VOLUME 83.4 fL (80.0-94.0); MEAN CORPUSCULAR HEMOGLOBIN 27.9 pg (27.0-31.0); MEAN CORPUSCULAR HGB CONC 33.4 g/dL (33.0-37.0); MEAN PLATELET VOLUME 10.7 fL (7.2-11.7); MONO # 0.9 K/uL (0.0-0.8); MONO % 8.8 % (0.0-10.0); NEUT # 8.4 K/uL (1.8-7.0); PLATELET COUNT 124 K/uL (130-400); RBC 3.37 Mil/uL (4.40-5.90); RED CELL DISTRIBUTION WIDTH 15.9 % (11.5-14.5); WHITE BLOOD COUNT 10.4 K/uL (4.8-10.8)
[2018-03-18 06:40] LABS: ALB/GLOB RATIO 0.7 (1.0-2.1); ALBUMIN 1.9 g/dL (3.5-5.0); ALT/SGPT 32 U/L (21-72); AST/SGOT 44 U/L (17-59); BLOOD UREA NITROGEN 12 mg/dL (9-20); CALCIUM 7.6 mg/dl (8.6-10.4); GFR NON-AFRICAN AMERICAN > 60
[2018-03-18] MEDS: Valproic Acid 250 mg/5 ml UD Cup PO SCH ×2 (09:29→17:13)
--- NOTE | 2018-03-18 09:36 | CP.CCUPN ---
<Chauncey Jefferson - Last Filed: 03/18/18 16:59> CCU Subjective - Physician Review Subjective (Free Text): 03/18/18 16:59 Pt seen and examined at bedside. No acute events overnight. Off sedation and pressors, remains unresponsive. No response to loud verbal or noxious physical stimuli. Has gag reflex, bilateral upgoing plantar reflexes, pinpoint and minimally reactive pupils, no avoidance of direct light challenge by eyes. Pending 2-physician declaration of futility and terminal extubation. Sharing network aware and noted patient not a candidate, so cleared for terminal extubation. CCU Objective - Vital Signs / Intake & Output Vital Signs (Last 4 hours): Vital Signs Temp Pulse Resp BP Pulse Ox 03/18/18 09:00 92 H 20 96 03/18/18 08:20 94 H 21 92/54 L 97 03/18/18 08:00 99 H 23 96 03/18/18 07:52 99.2 F 98 03/18/18 07:20 100 H 22 107/64 96 03/18/18 07:00 96 H 21 92 L 03/18/18 06:20 100 H 22 105/57 L 97 Intake and Output (Last 8hrs): Intake & Output 03/17/18 03/18/18 03/18/18 22:59 06:59 14:59 Intake Total 960 1020 680 Output Total 415 290 120 Balance 545 730 560 Weight 60.872 kg Intake: Intake, IV Amount 560 620 380 Left Antecubital 0 Right Distal Port 560 620 380 Internal Jugular Right Hand 0 Right Medial Port 0 Internal Jugular Tube Feeding 400 400 200 Other 100 Output: Urine 415 290 120 Urethral (Hawk) 415 290 120 Other: # Bowel Movements 1 - Physical Exam Physical Exam Limitations: Positive for: Other (intubated, unresponsive) Head: Positive for: Atraumatic, Normocephalic Pupils: Positive for: Other (pinpoint, minimally reactive bilaterally to light and sluggish) Extroacular Muscles: Positive for: Other (unable to assess, no movements, unresponsive, not avoiding direct light challenge) Conjunctiva: Negative for: Injected, Icteric Mouth: Positive for: Moist Mucous Membranes, Other (ETT in place) Nose (External): Positive for: Atraumatic. Negative for: Abrasion, Contusion, Laceration Nose (Internal): Positive for: No Active Bleeding. Negative for: Epistaxis Neck: Positive for: Normal Range of Motion (passive only, no spontaneous or active movements), Trachea Midline. Negative for: JVD Respiratory/Chest: Positive for: Rhonchi (mildly ronchorous in all ignacio). Negative for: Clear to Auscultation, Wheezes, Rales Cardiovascular: Positive for: Regular Rate and Rhythm, Normal S1, S2, Peripheal Pulses Present. Negative for: Irregular Rhythm, Tachycardic, Bradycardic Abdomen: Positive for: Normal Bowel Sounds. Negative for: Distention Upper Extremity: Positive for: NORMAL PULSES. Negative for: Cyanosis, Edema, Swelling, Erythema, Deformity Lower Extremity: Positive for: Edema (trace pitting edema bilateral LE from feet to mid-shins), Other (dark red skin along anterior and medial portions of bilateral LE suggestive of PVD vs PAD). Negative for: Normal Inspection, NORMAL PULSES (unable to palpate dorsalis pedis pulses) Neurological: Positive for: Other (non-responsive, only extension from pain, gag and bilateral plantar reflexs intact; reported decorticate posturing earlier , now not actively in decortical but rigid resistance to passive movement in opposite directions of decorticate posturing in all extremities). Negative for : GCS=15 (GCS 4 ([id number])) Skin: Positive for: Warm, Dry, Normal Color (except as documented in bilateral LE exam) Psychiatric: Positive for: Other (intubated but not sedated, unresponsive) - Medications Active Medications: Active Medications Generic Name Dose Route Start Last Admin Trade Name Freq PRN Reason Stop Dose Admin Acetaminophen 650 mg 03/16/18 17:31 Tylenol 650mg/20.3ml Solution Ud NG Q6 PRN Fever Aspirin 81 mg 03/15/18 10:00 03/18/18 09:30 Aspirin Chewable PO 81 mg DAILY GHANSHYAM Administration Meropenem 1 gm/ Sodium 100 mls @ 100 mls/hr 03/14/18 17:00 03/18/18 09:30 Chloride IVPB 100 mls/hr Q8H GHANSHYAM Administration Protocol Norepinephrine Bitartrate 4 mg 254 mls @ 15.24 mls/hr 03/15/18 15:53 08:00 / Sodium Chloride IV 0 mcg/min .[id number] PRN 0 mls/hr TITRATE PER MD ORDER Titration Protocol 4 MCG/MIN Sodium Chloride 1,000 mls @ 70 mls/hr 03/16/18 11:49 03/18/18 07:35 Sodium Chloride 0.9% IV Not Given .[id number] GHANSHYAM Levetiracetam 1,000 mg/ 110 mls @ 420 mls/hr 03/16/18 15:30 03/18/18 02:31 Dextrose IVPB 420 mls/hr Q12H GHANSHYAM Administration Vancomycin/Sodium Chloride 1 gm in 200 mls @ 133 mls/hr 03/18/18 16:00 Vancomycin 1 Gm/Ns 200 Ml IVPB 03/23/18 16:01 Q24H GHANSHYAM Protocol Pantoprazole Sodium 40 mg 03/15/18 10:00 03/18/18 09:30 Protonix Inj IVP 40 mg DAILY GHANSHYAM Administration Rosuvastatin Calcium 10 mg 03/14/18 22:00 03/17/18 21:53 Crestor PO 10 mg HS GHANSHYAM Administration Tamsulosin HCl 0.4 mg 03/15/18 10:00 03/18/18 09:30 Flomax PO 0.4 mg DAILY GHANSHYAM Administration Valproate Sodium 1,000 mg 03/16/18 14:34 03/18/18 09:29 Depakene Oral Soln PO 1,000 mg BID GHANSHYAM Administration - Patient Studies Lab Studies: Microbiology Studies 03/16/18 18:13 Blood Culture - Preliminary Blood-Thru Central Line NO GROWTH AFTER 24 HOURS 03/16/18 18:13 Blood Culture - Preliminary Blood-Thru Central Line NO GROWTH AFTER 24 HOURS 03/16/18 18:13 Urine Culture - Final Urine No Growth (<1,000 CFU/ML) 03/14/18 09:35 Blood Culture - Preliminary Blood NO GROWTH AFTER 3 DAYS 03/14/18 09:00 Blood Culture - Preliminary Blood NO GROWTH AFTER 3 DAYS Lab Studies 03/18/18 03/18/18 03/18/18 Range/Units 06:18 06:13 05:31 WBC 10.4 (4.8-10.8) K/uL RBC 3.37 L (4.40-5.90) Mil/uL Hgb 9.4 L (12.0-18.0) g/dL Hct 28.1 L (35.0-51.0) % MCV 83.4 (80.0-94.0) fL MCH 27.9 (27.0-31.0) pg MCHC 33.4 (33.0-37.0) g/dL RDW 15.9 H (11.5-14.5) % Plt Count 124 L D (130-400) K/uL MPV 10.7 (7.2-11.7) fL Neut % (Auto) 81.0 H (50.0-75.0) % Lymph % (Auto) 6.8 L (20.0-40.0) % Bulloch % (Auto) 8.8 (0.0-10.0) % Eos % (Auto) 2.8 (0.0-4.0) % Baso % (Auto) 0.6 (0.0-2.0) % Neut # (Auto) 8.4 H (1.8-7.0) K/uL Lymph # (Auto) 0.7 L (1.0-4.3) K/uL Bulloch # (Auto) 0.9 H (0.0-0.8) K/uL Eos # (Auto) 0.3 (0.0-0.7) K/uL Baso # (Auto) 0.1 (0.0-0.2) K/uL Puncture Site pCO2 (35-45) mm/Hg pO2 (80-100) mm/Hg HCO3 (21-28) mmol/L ABG pH (7.35-7.45) ABG Total CO2 (22-28) mmol/L ABG O2 Saturation (95-98) % ABG Base Excess (-2.0-3.0) mmol/L Joseph Test ABG Potassium (3.6-5.2) mmol/L A-a O2 Difference mm/Hg Respiratory Index Sodium 144 (132-148) mmol/l Chloride 114 H (98-107) mmol/L Glucose (75-110) mg/dl Lactate (0.7-2.1) mmol/L Vent Mode Mechanical Rate FiO2 % Tidal Volume PEEP Potassium 3.5 L (3.6-5.2) mmol/L Carbon Dioxide 25 (22-30) mmol/L Anion Gap 8 L (10-20) BUN 12 (9-20) mg/dL Creatinine 0.7 L (0.8-1.5) mg/dL Est GFR ( Amer) > 60 Est GFR (Non-Af Amer) > 60 POC Glucose (mg/dL) 109 (65-110) mg/dL Random Glucose 100 (75-110) mg/dL Calcium 7.6 L (8.6-10.4) mg/dl Phosphorus 2.3 L (2.5-4.5) mg/dL Magnesium 1.7 (1.6-2.3) mg/dL Total Bilirubin 0.4 (0.2-1.3) mg/dL AST 44 (17-59) U/L ALT 32 (21-72) U/L Alkaline Phosphatase 42 (38-126) U/L Total Protein 4.7 L (6.3-8.3) g/dL Albumin 1.9 L (3.5-5.0) g/dL Globulin 2.8 (2.2-3.9) gm/dL Albumin/Globulin Ratio 0.7 L (1.0-2.1) Arterial Blood Potassium (3.6-5.2) mmol/L 03/18/18 03/17/18 03/17/18 Range/Units 05:30 23:34 17:53 WBC (4.8-10.8) K/uL RBC (4.40-5.90) Mil/uL Hgb (12.0-18.0) g/dL Hct (35.0-51.0) % MCV (80.0-94.0) fL MCH (27.0-31.0) pg MCHC (33.0-37.0) g/dL RDW (11.5-14.5) % Plt Count (130-400) K/uL MPV (7.2-11.7) fL Neut % (Auto) (50.0-75.0) % Lymph % (Auto) (20.0-40.0) % Bulloch % (Auto) (0.0-10.0) % Eos % (Auto) (0.0-4.0) % Baso % (Auto) (0.0-2.0) % Neut # (Auto) (1.8-7.0) K/uL Lymph # (Auto) (1.0-4.3) K/uL Bulloch # (Auto) (0.0-0.8) K/uL Eos # (Auto) (0.0-0.7) K/uL Baso # (Auto) (0.0-0.2) K/uL Puncture Site Lrad pCO2 28 L (35-45) mm/Hg pO2 123 H (80-100) mm/Hg HCO3 24.8 (21-28) mmol/L ABG pH 7.50 H (7.35-7.45) ABG Total CO2 22.7 (22-28) mmol/L ABG O2 Saturation 99.7 H (95-98) % ABG Base Excess -0.2 (-2.0-3.0) mmol/L Joseph Test Pos ABG Potassium 3.4 L (3.6-5.2) mmol/L A-a O2 Difference 199.0 mm/Hg Respiratory Index 1.6 Sodium 142.0 (132-148) mmol/l Chloride 117.0 H (98-107) mmol/L Glucose 105 (75-110) mg/dl Lactate 0.9 (0.7-2.1) mmol/L Vent Mode Prvc Mechanical Rate 14 FiO2 50.0 % Tidal Volume 500 PEEP 5 Potassium (3.6-5.2) mmol/L Carbon Dioxide (22-30) mmol/L Anion Gap (10-20) BUN (9-20) mg/dL Creatinine (0.8-1.5) mg/dL Est GFR ( Amer) Est GFR (Non-Af Amer) POC Glucose (mg/dL) 109 115 H (65-110) mg/dL Random Glucose (75-110) mg/dL Calcium (8.6-10.4) mg/dl Phosphorus (2.5-4.5) mg/dL Magnesium (1.6-2.3) mg/dL Total Bilirubin (0.2-1.3) mg/dL AST (17-59) U/L ALT (21-72) U/L Alkaline Phosphatase (38-126) U/L Total Protein (6.3-8.3) g/dL Albumin (3.5-5.0) g/dL Globulin (2.2-3.9) gm/dL Albumin/Globulin Ratio (1.0-2.1) Arterial Blood Potassium 3.4 L (3.6-5.2) mmol/L 09/14/18 Range/Units 11:36 WBC (4.8-10.8) K/uL RBC (4.40-5.90) Mil/uL Hgb (12.0-18.0) g/dL Hct (35.0-51.0) % MCV (80.0-94.0) fL MCH (27.0-31.0) pg MCHC (33.0-37.0) g/dL RDW (11.5-14.5) % Plt Count (130-400) K/uL MPV (7.2-11.7) fL Neut % (Auto) (50.0-75.0) % Lymph % (Auto) (20.0-40.0) % Bulloch % (Auto) (0.0-10.0) % Eos % (Auto) (0.0-4.0) % Baso % (Auto) (0.0-2.0) % Neut # (Auto) (1.8-7.0) K/uL Lymph # (Auto) (1.0-4.3) K/uL Bulloch # (Auto) (0.0-0.8) K/uL Eos # (Auto) (0.0-0.7) K/uL Baso # (Auto) (0.0-0.2) K/uL Puncture Site pCO2 (35-45) mm/Hg pO2 (80-100) mm/Hg HCO3 (21-28) mmol/L ABG pH (7.35-7.45) ABG Total CO2 (22-28) mmol/L ABG O2 Saturation (95-98) % ABG Base Excess (-2.0-3.0) mmol/L Joseph Test ABG Potassium (3.6-5.2) mmol/L A-a O2 Difference mm/Hg Respiratory Index Sodium (132-148) mmol/l Chloride (98-107) mmol/L Glucose (75-110) mg/dl Lactate (0.7-2.1) mmol/L Vent Mode Mechanical Rate FiO2 % Tidal Volume PEEP Potassium (3.6-5.2) mmol/L Carbon Dioxide (22-30) mmol/L Anion Gap (10-20) BUN (9-20) mg/dL Creatinine (0.8-1.5) mg/dL Est GFR ( Amer) Est GFR (Non-Af Amer) POC Glucose (mg/dL) 140 H (65-110) mg/dL Random Glucose (75-110) mg/dL Calcium (8.6-10.4) mg/dl Phosphorus (2.5-4.5) mg/dL Magnesium (1.6-2.3) mg/dL Total Bilirubin (0.2-1.3) mg/dL AST (17-59) U/L ALT (21-72) U/L Alkaline Phosphatase (38-126) U/L Total Protein (6.3-8.3) g/dL Albumin (3.5-5.0) g/dL Globulin (2.2-3.9) gm/dL Albumin/Globulin Ratio (1.0-2.1) Arterial Blood Potassium (3.6-5.2) mmol/L Laboratory Results - last 24 hr 03/17/18 03/17/18 03/17/18 11:36 17:53 23:34 WBC RBC Hgb Hct MCV MCH MCHC RDW Plt Count MPV Neut % (Auto) Lymph % (Auto) Bulloch % (Auto) Eos % (Auto) Baso % (Auto) Neut # (Auto) Lymph # (Auto) Bulloch # (Auto) Eos # (Auto) Baso # (Auto) Puncture Site pCO2 pO2 HCO3 ABG pH ABG Total CO2 ABG O2 Saturation ABG Base Excess Joseph Test ABG Potassium A-a O2 Difference Respiratory Index Sodium Chloride Glucose Lactate Vent Mode Mechanical Rate FiO2 Tidal Volume PEEP Potassium Carbon Dioxide Anion Gap BUN Creatinine Est GFR ( Amer) Est GFR (Non-Af Amer) POC Glucose (mg/dL) 140 H 115 H 109 Random Glucose Calcium Phosphorus Magnesium Total Bilirubin AST ALT Alkaline Phosphatase Total Protein Albumin Globulin Albumin/Globulin Ratio Arterial Blood Potassium 03/18/18 03/18/18 03/18/18 05:30 05:31 06:13 WBC RBC Hgb Hct MCV MCH MCHC RDW Plt Count MPV Neut % (Auto) Lymph % (Auto) Bulloch % (Auto) Eos % (Auto) Baso % (Auto) Neut # (Auto) Lymph # (Auto) Bulloch # (Auto) Eos # (Auto) Baso # (Auto) Puncture Site Lrad pCO2 28 L pO2 123 H HCO3 24.8 ABG pH 7.50 H ABG Total CO2 22.7 ABG O2 Saturation 99.7 H ABG Base Excess -0.2 Joseph Test Pos ABG Potassium 3.4 L A-a O2 Difference 199.0 Respiratory Index 1.6 Sodium 142.0 144 Chloride 117.0 H 114 H Glucose 105 Lactate 0.9 Vent Mode Prvc Mechanical Rate 14 FiO2 50.0 Tidal Volume 500 PEEP 5 Potassium 3.5 L Carbon Dioxide 25 Anion Gap 8 L BUN 12 Creatinine 0.7 L Est GFR ( Amer) > 60 Est GFR (Non-Af Amer) > 60 POC Glucose (mg/dL) 109 Random Glucose 100 Calcium 7.6 L Phosphorus 2.3 L Magnesium 1.7 Total Bilirubin 0.4 AST 44 ALT 32 Alkaline Phosphatase 42 Total Protein 4.7 L Albumin 1.9 L Globulin 2.8 Albumin/Globulin Ratio 0.7 L Arterial Blood Potassium 3.4 L 03/18/18 06:18 WBC 10.4 RBC 3.37 L Hgb 9.4 L Hct 28.1 L MCV 83.4 MCH 27.9 MCHC 33.4 RDW 15.9 H Plt Count 124 L D MPV 10.7 Neut % (Auto) 81.0 H Lymph % (Auto) 6.8 L Bulloch % (Auto) 8.8 Eos % (Auto) 2.8 Baso % (Auto) 0.6 Neut # (Auto) 8.4 H Lymph # (Auto) 0.7 L Bulloch # (Auto) 0.9 H Eos # (Auto) 0.3 Baso # (Auto) 0.1 Puncture Site pCO2 pO2 HCO3 ABG pH ABG Total CO2 ABG O2 Saturation ABG Base Excess Joseph Test ABG Potassium A-a O2 Difference Respiratory Index Sodium Chloride Glucose Lactate Vent Mode Mechanical Rate FiO2 Tidal Volume PEEP Potassium Carbon Dioxide Anion Gap BUN Creatinine Est GFR ( Amer) Est GFR (Non-Af Amer) POC Glucose (mg/dL) Random Glucose Calcium Phosphorus Magnesium Total Bilirubin AST ALT Alkaline Phosphatase Total Protein Albumin Globulin Albumin/Globulin Ratio Arterial Blood Potassium Review of Systems - Review of Systems Systems not reviewed;Unavailable: Intubated Assessment/Plan - Assessment and Plan (Free Text) Assessment: This is a 73 year old male with history of HTN, HLD, BPH, schizophrenia, CKD, CHF, and dementia who was sent in for [facility] for AMS. CT brain showed large left MCA infarct with elevated troponins. He is now off all pressors and sedation, but remains unresponsive. Further care has been determined to be futile by 2 attending physicians as patient has no POA, and pt is pending terminal extubation. Plan: Neuro: -CT brain shows Large acute left MCA territory infarct as detailed above. No hemorrhage. 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 Pedro and agree that he is in a terminal state and further care is futile, they should document this in their progress notes. Then his attending physician may initiate palliative care orders, including withdrawal of life support and instituting comfort care orders. This is true regardless of POLST or AD status. No physician may be required to write orders that are medically futile and only serve to prolong a dying process" ICU attending and PMD agree that further care is futile, withdrawal of care form pending both signatures, then patient to be terminally extubated Pulm: -Intubated on PRVC; pending terminal extubation -CXR - patchy atalectasis vs infiltrate with minimal L pleural effusion -Maintain SPO2 > 92% CV: -Remains off pressors, maintaining MAP > 65 -Echo shows EF of 70%, severe pulm HTN -Cardiology consulted, help appreciated - not a candidate for cardiac cath at this time -Cont Crestor 10mg PO HS and ASA 81mg PO -Troponins 1.31--> 1.65 --> 1.65 -proBNP 7420 GI: -tube feeds -Protonix 40mg IVP Renal: -Monitor I and O -Replete electrolytes as needed -NS IV fluids decreased to 70cc/hr -Flomax 0.4mg PO -Continue to monitor electrolyte, replete as needed Endo: -Maintain euglycemia ID: -UA: pos, WBC 16.5 -Currently on Vancomycin and merrem -ID Dr. England consulted, help appreciated -f/u sepic work up; sputum culture positive for G- rods, may be contaminant, no intervention indicated as patient pending terminal extubation Heme: -H/H stable -SCD for dvt ppx Dispo: pending both signatures for withdrawal of care form, then patient to be extubated due to futility of further care FEN: Tube feeds Access: ETT, NGT Consults: Neuro, Cardio, ID, Pulm, ICU Ppx: Protonix for GI, SCDs for DVT Code Status: DNR/DNI At this time, 2 attending physicians (Primary and ICU attending) have determined that further care is futile. Patient to be terminally extubated. Seen, reviewed, and discussed with attending, Dr Ramos. <Wilton Ramos - Last Filed: 03/18/18 17:57> CCU Objective - Vital Signs / Intake & Output Vital Signs (Last 4 hours): Vital Signs Temp Pulse Resp BP Pulse Ox 03/18/18 17:00 91 H 20 100 03/18/18 16:20 92 H 19 95/59 L 95 03/18/18 16:00 98.1 F 93 H 21 100 03/18/18 15:20 89 20 94/53 L 100 03/18/18 15:00 87 20 100 03/18/18 14:20 92 H 21 91/54 L 99 03/18/18 14:00 95 H 22 95 Intake and Output (Last 8hrs): Intake & Output 03/18/18 03/18/18 03/18/18 06:59 14:59 22:59 Intake Total 1020 1390 660 Output Total 290 255 90 Balance 730 1135 570 Weight 134 lb 3.2 oz Intake: Intake, IV Amount 620 840 510 Left Antecubital 0 Right Distal Port 620 840 510 Internal Jugular Right Hand 0 Tube Feeding 400 450 150 Other 100 Output: Urine 290 255 90 Urethral (Hawk) 290 255 90 Other: # Bowel Movements 1 - Medications Active Medications: Active Medications Generic Name Dose Route Start Last Admin Trade Name Freq PRN Reason Stop Dose Admin Acetaminophen 650 mg 03/16/18 17:31 Tylenol 650mg/20.3ml Solution Ud NG Q6 PRN Fever Aspirin 81 mg 03/15/18 10:00 03/18/18 09:30 Aspirin Chewable PO 81 mg DAILY GHANSHYAM Administration Meropenem 1 gm/ Sodium 100 mls @ 100 mls/hr 03/14/18 17:00 03/18/18 17:13 Chloride IVPB 100 mls/hr Q8H GHANSHYAM Administration Protocol Norepinephrine Bitartrate 4 mg 254 mls @ 15.24 mls/hr 03/15/18 15:53 08:00 / Sodium Chloride IV 0 mcg/min .[id number] PRN 0 mls/hr TITRATE PER MD ORDER Titration Protocol 4 MCG/MIN Sodium Chloride 1,000 mls @ 70 mls/hr 03/16/18 11:49 03/18/18 07:35 Sodium Chloride 0.9% IV Not Given .[id number] GHANSHYAM Levetiracetam 1,000 mg/ 110 mls @ 420 mls/hr 03/16/18 15:30 03/18/18 14:42 Dextrose IVPB 420 mls/hr Q12H GHANSHYAM Administration Vancomycin/Sodium Chloride 1 gm in 200 mls @ 133 mls/hr 03/18/18 16:00 15:17 Vancomycin 1 Gm/Ns 200 Ml IVPB 03/23/18 16:01 133 mls/hr Q24H GHANSHYAM Administration Protocol Pantoprazole Sodium 40 mg 03/15/18 10:00 03/18/18 09:30 Protonix Inj IVP 40 mg DAILY GHANSHYAM Administration Rosuvastatin Calcium 10 mg 03/14/18 22:00 03/17/18 21:53 Crestor PO 10 mg HS GHANSHYAM Administration Tamsulosin HCl 0.4 mg 03/15/18 10:00 03/18/18 09:30 Flomax PO 0.4 mg DAILY GHANSHYAM Administration Valproate Sodium 1,000 mg 03/16/18 14:34 03/18/18 17:13 Depakene Oral Soln PO Not Given BID GHANSHYAM - Patient Studies Lab Studies: Microbiology Studies 03/16/18 19:17 Gram Stain - Final Sputum Sputum Culture - Preliminary Gram Negative Branden 03/14/18 09:35 Blood Culture - Preliminary Blood NO GROWTH AFTER 4 DAYS 03/14/18 09:00 Blood Culture - Preliminary Blood NO GROWTH AFTER 4 DAYS 03/16/18 18:13 Blood Culture - Preliminary Blood-Thru Central Line NO GROWTH AFTER 24 HOURS 03/16/18 18:13 Blood Culture - Preliminary Blood-Thru Central Line NO GROWTH AFTER 24 HOURS Lab Studies 03/18/18 03/18/18 03/18/18 Range/Units 11:17 06:18 06:13 WBC 10.4 (4.8-10.8) K/uL RBC 3.37 L (4.40-5.90) Mil/uL Hgb 9.4 L (12.0-18.0) g/dL Hct 28.1 L (35.0-51.0) % MCV 83.4 (80.0-94.0) fL MCH 27.9 (27.0-31.0) pg MCHC 33.4 (33.0-37.0) g/dL RDW 15.9 H (11.5-14.5) % Plt Count 124 L D (130-400) K/uL MPV 10.7 (7.2-11.7) fL Neut % (Auto) 81.0 H (50.0-75.0) % Lymph % (Auto) 6.8 L (20.0-40.0) % Bulloch % (Auto) 8.8 (0.0-10.0) % Eos % (Auto) 2.8 (0.0-4.0) % Baso % (Auto) 0.6 (0.0-2.0) % Neut # (Auto) 8.4 H (1.8-7.0) K/uL Lymph # (Auto) 0.7 L (1.0-4.3) K/uL Bulloch # (Auto) 0.9 H (0.0-0.8) K/uL Eos # (Auto) 0.3 (0.0-0.7) K/uL Baso # (Auto) 0.1 (0.0-0.2) K/uL Neutrophils % (Manual) 79 H (50-75) % Band Neutrophils % 1 (0-2) % Lymphocytes % (Manual) 8 L (20-40) % Monocytes % (Manual) 7 (0-10) % Eosinophils % (Manual) 5 H (0-4) % Platelet Estimate Slightly decreased L (NORMAL) Poikilocytosis (manual Slight Anisocytosis (manual) Slight Tear Drop Cells Slight Ovalocytes Slight Schistocytes Slight Puncture Site pCO2 (35-45) mm/Hg pO2 (80-100) mm/Hg HCO3 (21-28) mmol/L ABG pH (7.35-7.45) ABG Total CO2 (22-28) mmol/L ABG O2 Saturation (95-98) % ABG Base Excess (-2.0-3.0) mmol/L Joseph Test ABG Potassium (3.6-5.2) mmol/L A-a O2 Difference mm/Hg Respiratory Index Sodium 144 (132-148) mmol/l Chloride 114 H (98-107) mmol/L Glucose (75-110) mg/dl Lactate (0.7-2.1) mmol/L Vent Mode Mechanical Rate FiO2 % Tidal Volume PEEP Potassium 3.5 L (3.6-5.2) mmol/L Carbon Dioxide 25 (22-30) mmol/L Anion Gap 8 L (10-20) BUN 12 (9-20) mg/dL Creatinine 0.7 L (0.8-1.5) mg/dL Est GFR ( Amer) > 60 Est GFR (Non-Af Amer) > 60 POC Glucose (mg/dL) 124 H (65-110) mg/dL Random Glucose 100 (75-110) mg/dL Calcium 7.6 L (8.6-10.4) mg/dl Phosphorus 2.3 L (2.5-4.5) mg/dL Magnesium 1.7 (1.6-2.3) mg/dL Total Bilirubin 0.4 (0.2-1.3) mg/dL AST 44 (17-59) U/L ALT 32 (21-72) U/L Alkaline Phosphatase 42 (38-126) U/L Total Protein 4.7 L (6.3-8.3) g/dL Albumin 1.9 L (3.5-5.0) g/dL Globulin 2.8 (2.2-3.9) gm/dL Albumin/Globulin Ratio 0.7 L (1.0-2.1) Arterial Blood Potassium (3.6-5.2) mmol/L 03/18/18 03/18/18 03/17/18 Range/Units 05:31 05:30 23:34 WBC (4.8-10.8) K/uL RBC (4.40-5.90) Mil/uL Hgb (12.0-18.0) g/dL Hct (35.0-51.0) % MCV (80.0-94.0) fL MCH (27.0-31.0) pg MCHC (33.0-37.0) g/dL RDW (11.5-14.5) % Plt Count (130-400) K/uL MPV (7.2-11.7) fL Neut % (Auto) (50.0-75.0) % Lymph % (Auto) (20.0-40.0) % Bulloch % (Auto) (0.0-10.0) % Eos % (Auto) (0.0-4.0) % Baso % (Auto) (0.0-2.0) % Neut # (Auto) (1.8-7.0) K/uL Lymph # (Auto) (1.0-4.3) K/uL Bulloch # (Auto) (0.0-0.8) K/uL Eos # (Auto) (0.0-0.7) K/uL Baso # (Auto) (0.0-0.2) K/uL Neutrophils % (Manual) (50-75) % Band Neutrophils % (0-2) % Lymphocytes % (Manual) (20-40) % Monocytes % (Manual) (0-10) % Eosinophils % (Manual) (0-4) % Platelet Estimate (NORMAL) Poikilocytosis (manual Anisocytosis (manual) Tear Drop Cells Ovalocytes Schistocytes Puncture Site [place]rad pCO2 28 L (35-45) mm/Hg pO2 123 H (80-100) mm/Hg HCO3 24.8 (21-28) mmol/L ABG pH 7.50 H (7.35-7.45) ABG Total CO2 22.7 (22-28) mmol/L ABG O2 Saturation 99.7 H (95-98) % ABG Base Excess -0.2 (-2.0-3.0) mmol/L Joseph Test Pos ABG Potassium 3.4 L (3.6-5.2) mmol/L A-a O2 Difference 199.0 mm/Hg Respiratory Index 1.6 Sodium 142.0 (132-148) mmol/l Chloride 117.0 H (98-107) mmol/L Glucose 105 (75-110) mg/dl Lactate 0.9 (0.7-2.1) mmol/L Vent Mode Prvc Mechanical Rate 14 FiO2 50.0 % Tidal Volume 500 PEEP 5 Potassium (3.6-5.2) mmol/L Carbon Dioxide (22-30) mmol/L Anion Gap (10-20) BUN (9-20) mg/dL Creatinine (0.8-1.5) mg/dL Est GFR ( Amer) Est GFR (Non-Af Amer) POC Glucose (mg/dL) 109 109 (65-110) mg/dL Random Glucose (75-110) mg/dL Calcium (8.6-10.4) mg/dl Phosphorus (2.5-4.5) mg/dL Magnesium (1.6-2.3) mg/dL Total Bilirubin (0.2-1.3) mg/dL AST (17-59) U/L ALT (21-72) U/L Alkaline Phosphatase (38-126) U/L Total Protein (6.3-8.3) g/dL Albumin (3.5-5.0) g/dL Globulin (2.2-3.9) gm/dL Albumin/Globulin Ratio (1.0-2.1) Arterial Blood Potassium 3.4 L (3.6-5.2) mmol/L 03/17/18 Range/Units 17:53 WBC (4.8-10.8) K/uL RBC (4.40-5.90) Mil/uL Hgb (12.0-18.0) g/dL Hct (35.0-51.0) % MCV (80.0-94.0) fL MCH (27.0-31.0) pg MCHC (33.0-37.0) g/dL RDW (11.5-14.5) % Plt Count (130-400) K/uL MPV (7.2-11.7) fL Neut % (Auto) (50.0-75.0) % Lymph % (Auto) (20.0-40.0) % [place] % (Auto) (0.0-10.0) % Eos % (Auto) (0.0-4.0) % Baso % (Auto) (0.0-2.0) % Neut # (Auto) (1.8-7.0) K/uL Lymph # (Auto) (1.0-4.3) K/uL Bulloch # (Auto) (0.0-0.8) K/uL Eos # (Auto) (0.0-0.7) K/uL Baso # (Auto) (0.0-0.2) K/uL Neutrophils % (Manual) (50-75) % Band Neutrophils % (0-2) % Lymphocytes % (Manual) (20-40) % Monocytes % (Manual) (0-10) % Eosinophils % (Manual) (0-4) % Platelet Estimate (NORMAL) Poikilocytosis (manual Anisocytosis (manual) Tear Drop Cells Ovalocytes Schistocytes Puncture Site pCO2 (35-45) mm/Hg pO2 (80-100) mm/Hg HCO3 (21-28) mmol/L ABG pH (7.35-7.45) ABG Total CO2 (22-28) mmol/L ABG O2 Saturation (95-98) % ABG Base Excess (-2.0-3.0) mmol/L Joseph Test ABG Potassium (3.6-5.2) mmol/L A-a O2 Difference mm/Hg Respiratory Index Sodium (132-148) mmol/l Chloride (98-107) mmol/L Glucose (75-110) mg/dl Lactate (0.7-2.1) mmol/L Vent Mode Mechanical Rate FiO2 % Tidal Volume PEEP Potassium (3.6-5.2) mmol/L Carbon Dioxide (22-30) mmol/L Anion Gap (10-20) BUN (9-20) mg/dL Creatinine (0.8-1.5) mg/dL Est GFR ( Amer) Est GFR (Non-Af Amer) POC Glucose (mg/dL) 115 H (65-110) mg/dL Random Glucose (75-110) mg/dL Calcium (8.6-10.4) mg/dl Phosphorus (2.5-4.5) mg/dL Magnesium (1.6-2.3) mg/dL Total Bilirubin (0.2-1.3) mg/dL AST (17-59) U/L ALT (21-72) U/L Alkaline Phosphatase (38-126) U/L Total Protein (6.3-8.3) g/dL Albumin (3.5-5.0) g/dL Globulin (2.2-3.9) gm/dL Albumin/Globulin Ratio (1.0-2.1) Arterial Blood Potassium (3.6-5.2) mmol/L Laboratory Results - last 24 hr 03/17/18 03/17/18 03/18/18 17:53 23:34 05:30 WBC RBC Hgb Hct MCV MCH MCHC RDW Plt Count MPV Neut % (Auto) Lymph % (Auto) Bulloch % (Auto) Eos % (Auto) Baso % (Auto) Neut # (Auto) Lymph # (Auto) Bulloch # (Auto) Eos # (Auto) Baso # (Auto) Neutrophils % (Manual) Band Neutrophils % Lymphocytes % (Manual) Monocytes % (Manual) Eosinophils % (Manual) Platelet Estimate Poikilocytosis (manual Anisocytosis (manual) Tear Drop Cells Ovalocytes Schistocytes Puncture Site Lrad pCO2 28 L pO2 123 H HCO3 24.8 ABG pH 7.50 H ABG Total CO2 22.7 ABG O2 Saturation 99.7 H ABG Base Excess -0.2 Joseph Test Pos ABG Potassium 3.4 L A-a O2 Difference 199.0 Respiratory Index 1.6 Sodium 142.0 Chloride 117.0 H Glucose 105 Lactate 0.9 Vent Mode Prvc Mechanical Rate 14 FiO2 50.0 Tidal Volume 500 PEEP 5 Potassium Carbon Dioxide Anion Gap BUN Creatinine Est GFR ( Amer) Est GFR (Non-Af Amer) POC Glucose (mg/dL) 115 H 109 Random Glucose Calcium Phosphorus Magnesium Total Bilirubin AST ALT Alkaline Phosphatase Total Protein Albumin Globulin Albumin/Globulin Ratio Arterial Blood Potassium 3.4 L 03/18/18 03/18/18 03/18/18 05:31 06:13 06:18 WBC 10.4 RBC 3.37 L Hgb 9.4 L Hct 28.1 L MCV 83.4 MCH 27.9 MCHC 33.4 RDW 15.9 H Plt Count 124 L D MPV 10.7 Neut % (Auto) 81.0 H Lymph % (Auto) 6.8 L Bulloch % (Auto) 8.8 Eos % (Auto) 2.8 Baso % (Auto) 0.6 Neut # (Auto) 8.4 H Lymph # (Auto) 0.7 L Bulloch # (Auto) 0.9 H Eos # (Auto) 0.3 Baso # (Auto) 0.1 Neutrophils % (Manual) 79 H Band Neutrophils % 1 Lymphocytes % (Manual) 8 L Monocytes % (Manual) 7 Eosinophils % (Manual) 5 H Platelet Estimate Slightly decreased L Poikilocytosis (manual Slight Anisocytosis (manual) Slight Tear Drop Cells Slight Ovalocytes Slight Schistocytes Slight Puncture Site pCO2 pO2 HCO3 ABG pH ABG Total CO2 ABG O2 Saturation ABG Base Excess Joseph Test ABG Potassium A-a O2 Difference Respiratory Index Sodium 144 Chloride 114 H Glucose Lactate Vent Mode Mechanical Rate FiO2 Tidal Volume PEEP Potassium 3.5 L Carbon Dioxide 25 Anion Gap 8 L BUN 12 Creatinine 0.7 L Est GFR ( Amer) > 60 Est GFR (Non-Af Amer) > 60 POC Glucose (mg/dL) 109 Random Glucose 100 Calcium 7.6 L Phosphorus 2.3 L Magnesium 1.7 Total Bilirubin 0.4 AST 44 ALT 32 Alkaline Phosphatase 42 Total Protein 4.7 L Albumin 1.9 L Globulin 2.8 Albumin/Globulin Ratio 0.7 L Arterial Blood Potassium 03/18/18 11:17 WBC RBC Hgb Hct MCV MCH MCHC RDW Plt Count MPV Neut % (Auto) Lymph % (Auto) Bulloch % (Auto) Eos % (Auto) Baso % (Auto) Neut # (Auto) Lymph # (Auto) Bulloch # (Auto) Eos # (Auto) Baso # (Auto) Neutrophils % (Manual) Band Neutrophils % Lymphocytes % (Manual) Monocytes % (Manual) Eosinophils % (Manual) Platelet Estimate Poikilocytosis (manual Anisocytosis (manual) Tear Drop Cells Ovalocytes Schistocytes Puncture Site pCO2 pO2 HCO3 ABG pH ABG Total CO2 ABG O2 Saturation ABG Base Excess Joseph Test ABG Potassium A-a O2 Difference Respiratory Index Sodium Chloride Glucose Lactate Vent Mode Mechanical Rate FiO2 Tidal Volume PEEP Potassium Carbon Dioxide Anion Gap BUN Creatinine Est GFR ( Amer) Est GFR (Non-Af Amer) POC Glucose (mg/dL) 124 H Random Glucose Calcium Phosphorus Magnesium Total Bilirubin AST ALT Alkaline Phosphatase Total Protein Albumin Globulin Albumin/Globulin Ratio Arterial Blood Potassium Attending/Attestation - Attestation I have personally seen and examined this patient.: Yes I have fully participated in the care of the patient.: Yes I have reviewed all pertinent clinical information: Yes Notes (Text): 03/18/18 17:53 I have seen and examined the patient. Medical records, lab studies, and imaging were reviewed by me and a management plan was formulated on multidisciplinary rounds with resident Dr. Jefferson. I agree with their documented assessment and plan. 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 His wishes were made clear by his best friend Moody, who said he did not want to be kept alive by extraordinary measures with no hope of meaningful recovery. He has no other family to represent his wishes. His continued care is medically futile and in the patient's best interests to withdraw care. Dr. Hunter and myself are in agreement and will terminally extubate. [facility]'s Ethics committee was convened and is in agreement with this plan. Critical Care Time 35 minutes. Multi-disciplinary rounds were performed with house staff, nursing, speech therapy, respiratory therapy, pharmacy and nutrition with integrated input from the primary team/attending and other consulting services. The documented time is cumulative and includes review of patient data/exams/labs/chart review and examination of the patient on rounds and throughout the day; time is exclusive of any procedures or teaching time.
[2018-03-18 09:38] LABS: BANDS 1 % (0-2); EOSINOPHIL 5 % (0-4); TOTAL CELLS COUNTED 100
[2018-03-18 09:39] LABS: ANISOCYTOSIS SLIGHT; LYMPHOCYTE 8 % (20-40); MONOCYTE 7 % (0-10); NEUTROPHIL 79 % (50-75); PLATELET ESTIMATE SLIGHTLY DECREASED (NORMAL)
[2018-03-18 09:40] LABS: OVALOCYTES SLIGHT; POIKILOCYTOSIS SLIGHT; SCHISTOCYTES SLIGHT; TEARDROP CELLS SLIGHT
--- NOTE | 2018-03-18 10:57 | CP.PCM.PN ---
Subjective - Date & Time of Evaluation Date of Evaluation: 03/18/18 Time of Evaluation: 10:00 - Subjective Subjective: patient seen and examined No change in patient condition On ventilatory support FiO2 50% Afebrile Tolerating feeding Patient is off pressors Objective - Vital Signs/Intake and Output Vital Signs (last 24 hours): Temp Pulse Resp BP Pulse Ox 99.2 F 100 H 23 105/63 97 03/18/18 07:52 03/18/18 10:20 03/18/18 10:20 03/18/18 10:20 03/18/18 10:20 Intake and Output: 03/18/18 03/18/18 06:59 18:59 Intake Total 1500 800 Output Total 440 145 Balance 1060 655 - Medications Medications: Current Medications Acetaminophen (Tylenol 650mg/20.3ml Solution Ud) 650 mg NG Q6 PRN PRN Reason: Fever Aspirin (Aspirin Chewable) 81 mg PO DAILY [facility] Last Admin: 03/18/18 09:30 Dose: 81 mg Meropenem 1 gm/ Sodium (Chloride) 100 mls @ 100 mls/hr IVPB Q8H [facility]ANSHYAM PRN Reason: Protocol Last Admin: 03/18/18 09:30 Dose: 100 mls/hr Norepinephrine Bitartrate 4 mg (/ Sodium Chloride) 254 mls @ 15.24 mls/hr IV .[id number] PRN; Protocol; 4 MCG/MIN PRN Reason: TITRATE PER MD ORDER Last Titration: 03/17/18 08:00 Dose: 0 mcg/min, 0 mls/hr Sodium Chloride (Sodium Chloride 0.9%) 1,000 mls @ 70 mls/hr IV .[id number] GHANSHYAM Last Admin: 03/18/18 07:35 Dose: Not Given Levetiracetam 1,000 mg/ (Dextrose) 110 mls @ 420 mls/hr IVPB Q12H [facility]ANSHYAM Last Admin: 03/18/18 02:31 Dose: 420 mls/hr Vancomycin/Sodium Chloride (Vancomycin 1 Gm/Ns 200 Ml) 1 gm in 200 mls @ 133 mls/hr IVPB Q24H [facility]ANSHYAM PRN Reason: Protocol Stop: 03/23/18 16:01 Pantoprazole Sodium (Protonix Inj) 40 mg IVP DAILY [facility] Last Admin: 03/18/18 09:30 Dose: 40 mg Rosuvastatin Calcium (Crestor) 10 mg PO HS [facility] Last Admin: 03/17/18 21:53 Dose: 10 mg Tamsulosin HCl (Flomax) 0.4 mg PO DAILY [facility] Last Admin: 03/18/18 09:30 Dose: 0.4 mg Valproate Sodium (Depakene Oral Soln) 1,000 mg PO BID [facility] Last Admin: 03/18/18 09:29 Dose: 1,000 mg - Labs Labs: 03/18/18 06:18 03/18/18 06:13 PT 17.4 SECONDS (9.7-12.2) H 03/14/18 09:30 INR 1.6 03/14/18 09:30 APTT 31 SECONDS (21-34) 03/14/18 09:30 - Head Exam Head Exam: ATRAUMATIC, NORMOCEPHALIC - ENT Exam ENT Exam: Mucous Membranes Moist - Respiratory Exam Respiratory Exam: Clear to Ausculation Bilateral - Cardiovascular Exam Cardiovascular Exam: REGULAR RHYTHM - GI/Abdominal Exam GI & Abdominal Exam: Soft, Normal Bowel Sounds Assessment and Plan (1) Respiratory failure requiring intubation Assessment & Plan: Continue ventilatory support Tracheostomy Continue IV antibiotics Continue feeding Status: Acute (2) COPD (chronic obstructive pulmonary disease) Status: Acute (3) Pneumonia involving right lung Status: Acute (4) UTI (lower urinary tract infection) Status: Acute
--- NOTE | 2018-03-18 13:52 | CP.PCM.PN ---
Subjective - Date & Time of Evaluation Date of Evaluation: 03/18/18 Time of Evaluation: 10:30 - Subjective Subjective: Podiatry progress Note for attending Dr. Spears HPI obtained from his nurse. 73 y/o male patient seen and evaluated in ICU after consultation for right foot ulcer. Pt is intubated at time of visit. Multipodus boots in place to bilateral lower extremities. Nurse denies any overnight F/N/V. She states that they are awaiting for 2 doctors signature for terminal extubation as the patient has no advanced directives or next of kin. Objective - Vital Signs/Intake and Output Vital Signs (last 24 hours): Temp Pulse Resp BP Pulse Ox 98.1 F 89 20 95/58 L 100 03/18/18 12:00 03/18/18 13:00 03/18/18 13:00 03/18/18 12:20 03/18/18 13:00 Intake and Output: 03/18/18 03/18/18 06:59 18:59 Intake Total 1500 1160 Output Total 440 225 Balance 1060 935 - Medications Medications: Current Medications Acetaminophen (Tylenol 650mg/20.3ml Solution Ud) 650 mg NG Q6 PRN PRN Reason: Fever Aspirin (Aspirin Chewable) 81 mg PO DAILY [facility]PLAC[facility] BY [facility] Last Admin: 03/18/18 09:30 Dose: 81 mg Meropenem 1 gm/ Sodium (Chloride) 100 mls @ 100 mls/hr IVPB Q8H GHANSHYAM PRN Reason: Protocol Last Admin: 03/18/18 09:30 Dose: 100 mls/hr Norepinephrine Bitartrate 4 mg (/ Sodium Chloride) 254 mls @ 15.24 mls/hr IV .[id number] PRN; Protocol; 4 MCG/MIN PRN Reason: TITRATE PER MD ORDER Last Titration: 03/17/18 08:00 Dose: 0 mcg/min, 0 mls/hr Sodium Chloride (Sodium Chloride 0.9%) 1,000 mls @ 70 mls/hr IV .[id number] REPLACED BY [facility] Last Admin: 03/18/18 07:35 Dose: Not Given Levetiracetam 1,000 mg/ (Dextrose) 110 mls @ 420 mls/hr IVPB Q12H [facility]PLACED BY [facility] Last Admin: 03/18/18 02:31 Dose: 420 mls/hr Vancomycin/Sodium Chloride (Vancomycin 1 Gm/Ns 200 Ml) 1 gm in 200 mls @ 133 mls/hr IVPB Q24H REPLACED BY [facility] PRN Reason: Protocol Stop: 03/23/18 16:01 Pantoprazole Sodium (Protonix Inj) 40 mg IVP DAILY [facility] Last Admin: 03/18/18 09:30 Dose: 40 mg Rosuvastatin Calcium (Crestor) 10 mg PO HS [facility] Last Admin: 03/17/18 21:53 Dose: 10 mg Tamsulosin HCl (Flomax) 0.4 mg PO DAILY [facility] Last Admin: 03/18/18 09:30 Dose: 0.4 mg Valproate Sodium (Depakene Oral Soln) 1,000 mg PO BID [facility] Last Admin: 03/18/18 09:29 Dose: 1,000 mg - Labs Labs: 03/18/18 06:18 03/18/18 06:13 PT 17.4 SECONDS (9.7-12.2) H 03/14/18 09:30 INR 1.6 03/14/18 09:30 APTT 31 SECONDS (21-34) 03/14/18 09:30 - Extremities Exam Additional comments: Lower extremity exam: Vasc: DP/PT pulses palpable 1/4 B/L. Temperature gradient warm to cool from proximal to distal. Cap refill < 3 sec to all digits. No pedal edema noted. Derm: Open superficial ulcer to right foot 2nd digit approx 1cm x 1.2cm x 0.1cm. Mixed fibrogranular wound base. No drainage or purulence, no tunneling or undermining, no malodor and no probing to bone. Neuro: Unable to assess secondary to altered mental status. MSK: Hammertoe contracture noted to digits 2-5 of feet B/L. Muscle power couldn' t be assessed as the patient is unresponsive. Assessment and Plan - Assessment and Plan (Free Text) Assessment: 73 y/o male patient seen and evaluated at the bedside in the ICU for right foot 2nd digit ulceration. Plan: Pt seen and evaluated in the ICU Plan discussed in details with attending Dr. Spears Chart, vitals and labs reviewed; Afebrile, No leukocytosis noted Wound dressed with xeroform, gauze and tape. Ulcer is stable from podiatry standpoint Wound does not appear clinically infected Waiting for 2 doctors signature for extubation and end of life care. Will continue to follow up the patient while in house.
--- NOTE | 2018-03-18 14:26 | CP.PCM.PN ---
Subjective - Date & Time of Evaluation Date of Evaluation: 03/18/18 Time of Evaluation: 14:24 - Subjective Subjective: Mr. Pedro was seen and examined today in the ICU. There has been no change in his neurological status due to devastating stroke. Objective - Vital Signs/Intake and Output Vital Signs (last 24 hours): Temp Pulse Resp BP Pulse Ox 98.1 F 95 H 22 107/60 95 03/18/18 12:00 03/18/18 14:00 03/18/18 14:00 03/18/18 13:20 03/18/18 14:00 Intake and Output: 03/18/18 03/18/18 06:59 18:59 Intake Total 1500 1280 Output Total 440 255 Balance 1060 1025 - Medications Medications: Current Medications Acetaminophen (Tylenol 650mg/20.3ml Solution Ud) 650 mg NG Q6 PRN PRN Reason: Fever Aspirin (Aspirin Chewable) 81 mg PO DAILY [facility] Last Admin: 03/18/18 09:30 Dose: 81 mg Meropenem 1 gm/ Sodium (Chloride) 100 mls @ 100 mls/hr IVPB Q8H GHANSHYAM PRN Reason: Protocol Last Admin: 03/18/18 09:30 Dose: 100 mls/hr Norepinephrine Bitartrate 4 mg (/ Sodium Chloride) 254 mls @ 15.24 mls/hr IV .[id number] PRN; Protocol; 4 MCG/MIN PRN Reason: TITRATE PER MD ORDER Last Titration: 03/17/18 08:00 Dose: 0 mcg/min, 0 mls/hr Sodium Chloride (Sodium Chloride 0.9%) 1,000 mls @ 70 mls/hr IV .[id number] [facility] Last Admin: 03/18/18 07:35 Dose: Not Given Levetiracetam 1,000 mg/ (Dextrose) 110 mls @ 420 mls/hr IVPB Q12H [facility] Last Admin: 03/18/18 02:31 Dose: 420 mls/hr Vancomycin/Sodium Chloride (Vancomycin 1 Gm/Ns 200 Ml) 1 gm in 200 mls @ 133 mls/hr IVPB Q24H [facility]ANSHY[facility] PRN Reason: Protocol Stop: 03/23/18 16:01 Pantoprazole Sodium (Protonix Inj) 40 mg IVP DAILY [facility] Last Admin: 03/18/18 09:30 Dose: 40 mg Rosuvastatin Calcium (Crestor) 10 mg PO HS [facility] Last Admin: 03/17/18 21:53 Dose: 10 mg Tamsulosin HCl (Flomax) 0.4 mg PO DAILY [facility] Last Admin: 03/18/18 09:30 Dose: 0.4 mg Valproate Sodium (Depakene Oral Soln) 1,000 mg PO BID [facility] Last Admin: 03/18/18 09:29 Dose: 1,000 mg - Labs Labs: 03/18/18 06:18 03/18/18 06:13 PT 17.4 SECONDS (9.7-12.2) H 03/14/18 09:30 INR 1.6 03/14/18 09:30 APTT 31 SECONDS (21-34) 03/14/18 09:30 - Neurological Exam Additional comments: Neurologically unchanged. Assessment and Plan (1) CVA (cerebral vascular accident) Assessment & Plan: Multiple medical comorbidities with no real chance of improvement. There is a plan for terminal extubation according to medical staff. Status: Acute
[2018-03-18] MEDS ORDERED: Vancomycin 1 gm/NS 200 ml 1 GM/200 ML BAG IVPB SCH (16:00)
[2018-03-18] MEDS ORDERED: Morphine Sulfate 250 MG in Dextrose 5% In Water 240 ML IV PRN ×2 (18:47→18:52)
--- NOTE | 2018-03-18 20:00 | CP.PCM.PN ---
Objective - Vital Signs/Intake and Output Vital Signs (last 24 hours): Temp Pulse Resp BP Pulse Ox 98.1 F 100 H 21 106/60 94 L 03/18/18 16:00 03/18/18 19:00 03/18/18 19:00 03/18/18 18:20 03/18/18 19:00 Intake and Output: 03/18/18 03/19/18 18:59 06:59 Intake Total 2120 70 Output Total 450 30 Balance 1670 40 - Medications Medications: Current Medications Morphine Sulfate 250 mg/ (Dextrose) 250 mls @ 4 mls/hr IV .Q24H PRN; Protocol; 4 MG/HR PRN Reason: confort measures, term extub Lorazepam (Ativan) 1 mg IVP Q1H PRN PRN Reason: Seizure activity - Labs Labs: 03/18/18 06:18 03/18/18 06:13 PT 17.4 SECONDS (9.7-12.2) H 03/14/18 09:30 INR 1.6 03/14/18 09:30 APTT 31 SECONDS (21-34) 03/14/18 09:30 Assessment and Plan (1) CVA (cerebral vascular accident) Status: Acute (2) Pneumonia involving right lung Status: Acute (3) BPH (benign prostatic hyperplasia) Status: Chronic (4) CHF (congestive heart failure) Status: Chronic
--- NOTE | 2018-03-18 20:24 | CP.PCM.PN ---
Subjective - Date & Time of Evaluation Date of Evaluation: 03/18/18 Time of Evaluation: 16:00 - Subjective Subjective: dictated Objective - Vital Signs/Intake and Output Vital Signs (last 24 hours): Temp Pulse Resp BP Pulse Ox 98.1 F 100 H 21 106/60 94 L 03/18/18 16:00 03/18/18 19:00 03/18/18 19:00 03/18/18 18:20 03/18/18 19:00 Intake and Output: 03/18/18 03/19/18 18:59 06:59 Intake Total 2120 70 Output Total 450 30 Balance 1670 40 - Medications Medications: Current Medications Morphine Sulfate 250 mg/ (Dextrose) 250 mls @ 4 mls/hr IV .Q24H PRN; Protocol; 4 MG/HR PRN Reason: confort measures, term extub Lorazepam (Ativan) 1 mg IVP Q1H PRN PRN Reason: Seizure activity - Labs Labs: 03/18/18 06:18 03/18/18 06:13 PT 17.4 SECONDS (9.7-12.2) H 03/14/18 09:30 INR 1.6 03/14/18 09:30 APTT 31 SECONDS (21-34) 03/14/18 09:30
--- NOTE | 2018-03-18 23:12 | CP.PCM.PN ---
Subjective - Date & Time of Evaluation Date of Evaluation: 03/18/18 Time of Evaluation: 12:05 - Subjective Subjective: Patient seen and evaluated No cardiac events noted Denies chest pain and dyspnea Objective - Vital Signs/Intake and Output Vital Signs (last 24 hours): Temp Pulse Resp BP Pulse Ox 98.7 F 92 H 22 106/62 93 L 03/18/18 20:00 03/18/18 20:01 03/18/18 20:01 03/18/18 20:01 03/18/18 20:01 Intake and Output: 03/18/18 03/19/18 18:59 06:59 Intake Total 2120 85 Output Total 450 30 Balance 1670 55 - Medications Medications: Current Medications Morphine Sulfate 250 mg/ (Dextrose) 250 mls @ 4 mls/hr IV .Q24H PRN; Protocol; 4 MG/HR PRN Reason: confort measures, term extub Last Admin: 03/18/18 20:45 Dose: 5 mg/hr, 5 mls/hr Lorazepam (Ativan) 1 mg IVP Q1H PRN PRN Reason: Seizure activity - Labs Labs: 03/18/18 06:18 03/18/18 06:13 PT 17.4 SECONDS (9.7-12.2) H 03/14/18 09:30 INR 1.6 03/14/18 09:30 APTT 31 SECONDS (21-34) 03/14/18 09:30
--- NOTE | 2018-03-18 23:18 | PN ---
DATE: 03/18/2018 SUBJECTIVE: The patient is unresponsive. He is not responding to mechanical ventilator. He is not still breathing on his own. He has extensive brain damage, and he is at the end of his life. PHYSICAL EXAMINATION: VITAL SIGNS: BP 106/60, pulse 100, respiratory rate 21, temperature 98. LUNGS: Bilateral transmitted breath sounds. Bilateral crackles, left more than right. CARDIOVASCULAR SYSTEM: S1, S2 are regular. ABDOMEN: Soft. CENTRAL NERVOUS SYSTEM: Unresponsive. ASSESSMENT: 1. Extensive cerebrovascular accident with extensive brain damage. 2. Pneumonia. 3. Hypertension. 4. Coronary artery disease. PLAN: The patient has no chance of recovery as per Neurology and ICU physician. The patient is at the end of his life. There is no living relative available, no next of kin, so we will consider terminal extubation as there is no chance of recovery. Liborio Hunter MD
--- NOTE | 2018-03-19 00:27 | PN ---
DATE: 03/18/2018 SUBJECTIVE: The patient was seen. He remains intubated. He appears lethargic. I have not seen much response. Neurology is following because he had a massive stroke. There is no change in his mental status. He remains intubated. His blood pressure remains on the low side; however, he is making urine at this time. He remains on IV antibiotics, vancomycin and Merrem. PHYSICAL EXAMINATION: VITAL SIGNS: T-max is 98.1, pulse is 95, blood pressure is 107/60, respirations are 20. HEENT: Head is atraumatic, normocephalic. NECK: Supple. LUNGS: Clear. No crackles or rales present. Decreased breath sounds. HEART: S1, S2 are regular. ABDOMEN: Soft, nontender. No guarding, no rigidity present. EXTREMITIES: Have no edema. LABORATORY DATA: White count is 10.4, hemoglobin 9.4, hematocrit is 28.1, platelet count is 0.7. He also had cardiac enzymes positive. ASSESSMENT AND PLAN: I will continue the intravenous antibiotics, but the patient seems to have a massive stroke and remains hypotensive. He has chronic bilateral stasis dermatitis and discoloration and hyperpigmentation. Jayshree England MD
--- NOTE | 2018-03-19 12:19 | CP.PCM.PN ---
Subjective - Date & Time of Evaluation Date of Evaluation: 03/19/18 Time of Evaluation: 12:00 - Subjective Subjective: Pulmonary Follow up, Covering Dr Perez The patient was Seen/interviewed and examined by me at the bedside, Medical records reviewed and Management issues were discussed and formulated with the house staff. Events reviewed Hypotensive, Pt minimally responsive Patient s/p terminally extubated, on 100% NRM. Comfortable on Morphine drip Very poor prognosis Pt DNR/DNI Objective - Vital Signs/Intake and Output Vital Signs (last 24 hours): Temp Pulse Resp BP Pulse Ox 96.0 F L 67 8 L 58/29 L 97 03/19/18 11:42 03/19/18 12:02 03/19/18 12:02 03/19/18 12:02 03/19/18 12:02 Intake and Output: 03/19/18 03/19/18 06:59 18:59 Intake Total 125 30 Output Total 330 Balance -205 30 - Medications Medications: Current Medications Morphine Sulfate 250 mg/ (Dextrose) 250 mls @ 4 mls/hr IV .Q24H PRN; Protocol; 4 MG/HR PRN Reason: confort measures, term extub Last Admin: 03/18/18 20:45 Dose: 5 mg/hr, 5 mls/hr Lorazepam (Ativan) 1 mg IVP Q1H PRN PRN Reason: Seizure activity - Labs Labs: 03/18/18 06:18 03/18/18 06:13 PT 17.4 SECONDS (9.7-12.2) H 03/14/18 09:30 INR 1.6 03/14/18 09:30 APTT 31 SECONDS (21-34) 03/14/18 09:30 - Constitutional Appears: Toxic, No Acute Distress, Cachectic - Head Exam Head Exam: ATRAUMATIC, NORMAL INSPECTION - Eye Exam Eye Exam: absent: Conjunctival injection Pupil Exam: PERRL - Neck Exam Neck Exam: Full ROM - Respiratory Exam Respiratory Exam: Decreased Breath Sounds, Rales, Rhonchi. absent: Wheezes - Cardiovascular Exam Cardiovascular Exam: Bradycardia, REGULAR RHYTHM, RRR. absent: JVD - GI/Abdominal Exam GI & Abdominal Exam: Diminished Bowel Sounds - Neurological Exam Neurological Exam: Altered. absent: Alert, Awake Assessment and Plan (1) Sepsis Status: Acute (2) COPD (chronic obstructive pulmonary disease) Status: Acute (3) CVA (cerebral vascular accident) Status: Acute (4) Failure to thrive Status: Acute (5) Emphysema of lung Status: Chronic
[2018-03-19 16:30] VITALS: O2SAT 95
[2018-03-19 19:13] VITALS: BP 55/32; PULSE 97; RESP 18; TEMP 92.9
--- NOTE | 2018-03-19 19:57 | CP.PCM.PN ---
Subjective - Date & Time of Evaluation Date of Evaluation: 03/19/18 Time of Evaluation: 07:30 - Subjective Subjective: Patient seen and evaluated Hypotensive Poor prognosis due to severe stroke DNR/DNI Comfort measures Objective - Vital Signs/Intake and Output Vital Signs (last 24 hours): Temp Pulse Resp BP Pulse Ox 92.9 F L 97 H 18 55/32 L 95 03/19/18 19:13 03/19/18 19:13 03/19/18 19:13 03/19/18 19:13 03/19/18 16:02 Intake and Output: 03/19/18 03/20/18 18:59 06:59 Intake Total 170 Output Total 75 Balance 95 - Medications Medications: Current Medications Morphine Sulfate 250 mg/ (Dextrose) 250 mls @ 4 mls/hr IV .Q24H PRN; Protocol; 4 MG/HR PRN Reason: confort measures, term extub Last Titration: 03/19/18 17:23 Dose: 10 mg/hr, 10 mls/hr Lorazepam (Ativan) 1 mg IVP Q1H PRN PRN Reason: Seizure activity - Labs Labs: 03/18/18 06:18 03/18/18 06:13 PT 17.4 SECONDS (9.7-12.2) H 03/14/18 09:30 INR 1.6 03/14/18 09:30 APTT 31 SECONDS (21-34) 03/14/18 09:30
--- NOTE | 2018-03-19 21:37 | CP.PCM.PCO ---
Physician Communication Note - Physician Communication Note Physician Communication Note: Dress R 2nd toe with xeroform, sterile gauze and tape daily. start tomorrow
--- NOTE | 2018-03-19 22:47 | CP.PCM.PRO ---
Pronouncement of Note - Clinical Findings Physical Exam: No Response Verbal/Painful Stimuli, Absent Peripheral Pulses{ Carotid & Femoral}, Absent Heart & Breath Sounds, No Pupillary Light Reflex, No Corneal Reflex, Pupils Fixed & Dilated, Absence of Vital Signs - Pronouncement Time Time of Pronouncement of : 22:56 - Notifications Pronouncement Notifications: Atending Notified Wood Inspector Notified: No
--- NOTE | 2018-03-19 23:00 | CP.PCM.DIS ---
Provider - Provider Date of Admission: 03/14/18 11:46 Attending physician: Liborio Hunter MD Diagnosis - Discharge Diagnosis (1) CVA (cerebral vascular accident) Status: Acute (2) Pneumonia involving right lung Status: Acute (3) BPH (benign prostatic hyperplasia) Status: Chronic (4) CHF (congestive heart failure) Status: Chronic Hospital Course - Lab Results Lab Results: Micro Results 03/16/18 18:13 Blood-Thru Central Line Blood Culture - Preliminary NO GROWTH AFTER 3 DAYS 03/16/18 18:13 Blood-Thru Central Line Blood Culture - Preliminary NO GROWTH AFTER 3 DAYS 03/16/18 19:17 Sputum Gram Stain - Final 03/16/18 19:17 Sputum Sputum Culture - Preliminary Stenotrophomonas Maltophilia 03/14/18 09:35 Blood Blood Culture - Final NO GROWTH AFTER 5 DAYS 03/14/18 09:35 Blood Gram Stain - Final TEST NOT PERFORMED 03/14/18 09:00 Blood Blood Culture - Final NO GROWTH AFTER 5 DAYS 03/14/18 09:00 Blood Gram Stain - Final TEST NOT PERFORMED 03/16/18 18:13 Urine Urine Culture - Final No Growth (<1,000 CFU/ML) 03/14/18 17:23 Sputum Gram Stain - Final 03/14/18 17:23 Sputum Sputum Culture - Final NORMAL ORAL TAO 03/14/18 17:23 Naris MRSA Culture (Admit) - Final MRSA NOT DETECTED 03/14/18 09:33 Urine,[place] Urine Culture - Final No Growth (<1,000 CFU/ML) Most Recent Lab Values WBC 10.4 K/uL (4.8-10.8) 03/18/18 06:18 RBC 3.37 Mil/uL (4.40-5.90) L 03/18/18 06:18 Hgb 9.4 g/dL (12.0-18.0) L 03/18/18 06:18 Hct 28.1 % (35.0-51.0) L 03/18/18 06:18 MCV 83.4 fL (80.0-94.0) 03/18/18 06:18 MCH 27.9 pg (27.0-31.0) 03/18/18 06:18 MCHC 33.4 g/dL (33.0-37.0) 03/18/18 06:18 RDW 15.9 % (11.5-14.5) H 03/18/18 06:18 Plt Count 124 K/uL (130-400) L D 03/18/18 06:18 MPV 10.7 fL (7.2-11.7) 03/18/18 06:18 Neut % (Auto) 81.0 % (50.0-75.0) H 03/18/18 06:18 Lymph % (Auto) 6.8 % (20.0-40.0) L 03/18/18 06:18 Moore % (Auto) 8.8 % (0.0-10.0) 03/18/18 06:18 Eos % (Auto) 2.8 % (0.0-4.0) 03/18/18 06:18 Baso % (Auto) 0.6 % (0.0-2.0) 03/18/18 06:18 Neut # (Auto) 8.4 K/uL (1.8-7.0) H 03/18/18 06:18 Lymph # (Auto) 0.7 K/uL (1.0-4.3) L 03/18/18 06:18 Moore # (Auto) 0.9 K/uL (0.0-0.8) H 03/18/18 06:18 Eos # (Auto) 0.3 K/uL (0.0-0.7) 03/18/18 06:18 Baso # (Auto) 0.1 K/uL (0.0-0.2) 03/18/18 06:18 Neutrophils % (Manual) 79 % (50-75) H 03/18/18 06:18 Band Neutrophils % 1 % (0-2) 03/18/18 06:18 Lymphocytes % (Manual) 8 % (20-40) L 03/18/18 06:18 Monocytes % (Manual) 7 % (0-10) 03/18/18 06:18 Eosinophils % (Manual) 5 % (0-4) H 03/18/18 06:18 Platelet Estimate Slightly decreased (NORMAL) L 03/18/18 06:18 Hypochromasia (manual) Slight 03/17/18 06:12 Poikilocytosis (manual Slight 03/18/18 06:18 Anisocytosis (manual) Slight 03/18/18 06:18 Tear Drop Cells Slight 03/18/18 06:18 Ovalocytes Slight 03/18/18 06:18 Schistocytes Slight 03/18/18 06:18 PT 17.4 SECONDS (9.7-12.2) H 03/14/18 09:30 INR 1.6 03/14/18 09:30 APTT 31 SECONDS (21-34) 03/14/18 09:30 Puncture Site Lrad 03/18/18 05:30 pCO2 28 mm/Hg (35-45) L 03/18/18 05:30 pO2 123 mm/Hg (80-100) H 03/18/18 05:30 HCO3 24.8 mmol/L (21-28) 03/18/18 05:30 ABG pH 7.50 (7.35-7.45) H 03/18/18 05:30 ABG Total CO2 22.7 mmol/L (22-28) 03/18/18 05:30 ABG O2 Saturation 99.7 % (95-98) H 03/18/18 05:30 ABG Base Excess -0.2 mmol/L (-2.0-3.0) 03/18/18 05:30 ABG Hemoglobin 10.8 g/dL (11.7-17.4) L 03/17/18 05:30 ABG Carboxyhemoglobin 1.7 % (0.5-1.5) H 03/17/18 05:30 POC ABG HHb (Measured) 1.3 % (0.0-5.0) 03/17/18 05:30 ABG Methemoglobin 1.6 % (0.0-3.0) 03/17/18 05:30 Joseph Test Pos 03/18/18 05:30 ABG Potassium 3.4 mmol/L (3.6-5.2) L 03/18/18 05:30 VBG pH 7.32 (7.32-7.43) 03/14/18 15:45 VBG pCO2 47 mmHg (40-60) 03/14/18 15:45 VBG HCO3 23.0 mmol/L 03/14/18 15:45 VBG Total CO2 25.6 mmol/L (22-28) 03/14/18 15:45 VBG O2 Sat (Calc) 93.9 % (40-65) H 03/14/18 15:45 VBG Base Excess -2.2 mmol/L (0.0-2.0) L 03/14/18 15:45 VBG Potassium 4.1 mmol/L (3.6-5.2) 03/14/18 15:45 A-a O2 Difference 199.0 mm/Hg 03/18/18 05:30 Respiratory Index 1.6 03/18/18 05:30 Hgb O2 Saturation 95.4 % (95.0-98.0) 03/17/18 05:30 Sodium 142.0 mmol/l (132-148) 03/18/18 05:30 Chloride 117.0 mmol/L (98-107) H 03/18/18 05:30 Glucose 105 mg/dl (75-110) 03/18/18 05:30 Lactate 0.9 mmol/L (0.7-2.1) 03/18/18 05:30 Vent Mode Prvc 03/18/18 05:30 Mechanical Rate 14 03/18/18 05:30 FiO2 50.0 % 03/18/18 05:30 Tidal Volume 500 03/18/18 05:30 PEEP 5 03/18/18 05:30 Sodium 144 mmol/L (132-148) 03/18/18 06:13 Potassium 3.5 mmol/L (3.6-5.2) L 03/18/18 06:13 Chloride 114 mmol/L (98-107) H 03/18/18 06:13 Carbon Dioxide 25 mmol/L (22-30) 03/18/18 06:13 Anion Gap 8 (10-20) L 03/18/18 06:13 BUN 12 mg/dL (9-20) 03/18/18 06:13 Creatinine 0.7 mg/dL (0.8-1.5) L 03/18/18 06:13 Est GFR ( Amer) > 60 03/18/18 06:13 Est GFR (Non-Af Amer) > 60 03/18/18 06:13 POC Glucose (mg/dL) 124 mg/dL (65-110) H 03/18/18 11:17 Random Glucose 100 mg/dL (75-110) 03/18/18 06:13 Calcium 7.6 mg/dl (8.6-10.4) L 03/18/18 06:13 Phosphorus 2.3 mg/dL (2.5-4.5) L 03/18/18 06:13 Magnesium 1.7 mg/dL (1.6-2.3) 03/18/18 06:13 Total Bilirubin 0.4 mg/dL (0.2-1.3) 03/18/18 06:13 AST 44 U/L (17-59) 03/18/18 06:13 ALT 32 U/L (21-72) 03/18/18 06:13 Alkaline Phosphatase 42 U/L (38-126) 03/18/18 06:13 Troponin I 1.6500 ng/mL (0.00-0.120) H* 03/14/18 18:09 NT-Pro-B Natriuret Pep 7420 pg/mL (0-900) H 03/14/18 09:30 Total Protein 4.7 g/dL (6.3-8.3) L 03/18/18 06:13 Albumin 1.9 g/dL (3.5-5.0) L 03/18/18 06:13 Globulin 2.8 gm/dL (2.2-3.9) 03/18/18 06:13 Albumin/Globulin Ratio 0.7 (1.0-2.1) L 03/18/18 06:13 Triglycerides 58 mg/dL (0-149) 03/14/18 18:09 Cholesterol 80 mg/dL (0-199) 03/14/18 18:09 LDL Cholesterol Direct 42 mg/dL (0-129) 03/14/18 18:09 HDL Cholesterol 24 mg/dL (30-70) L 03/14/18 18:09 Free T4 2.12 ng/dL (0.78-2.19) 03/14/18 18:09 TSH 3rd Generation 1.74 mIU/L (0.46-4.68) 03/14/18 18:09 Arterial Blood Potassium 3.4 mmol/L (3.6-5.2) L 03/18/18 05:30 Venous Blood Potassium 4.1 mmol/L (3.6-5.2) 03/14/18 15:45 Urine Color Yellow (YELLOW) 03/14/18 09:33 Urine Clarity Hazy (Clear) 03/14/18 09:33 Urine pH 5.0 (5.0-8.0) 03/14/18 09:33 Ur Specific [place] 1.015 (1.003-1.030) 03/14/18 09:33 Urine Protein 1+ mg/dL (NEGATIVE) H 03/14/18 09:33 Urine Glucose (UA) Normal mg/dL (Normal) 03/14/18 09:33 Urine Ketones Trace mg/dL (NEGATIVE) 03/14/18 09:33 Urine Blood 3+ (NEGATIVE) H 03/14/18 09:33 Urine Nitrate Negative (NEGATIVE) 03/14/18 09:33 Urine Bilirubin Negative (NEGATIVE) 03/14/18 09:33 Urine Urobilinogen Normal mg/dL (0.2-1.0) 03/14/18 09:33 Ur Leukocyte Esterase 3+ [place]/uL (Negative) H 03/14/18 09:33 Urine WBC (Auto) 291 /hpf (0-5) H 03/14/18 09:33 Urine RBC (Auto) 275 /hpf (0-3) H 03/14/18 09:33 Ur Squamous Epith Cells 22 /hpf (0-5) H 03/14/18 09:33 Urine Bacteria Few (<OCC) H 03/14/18 09:33 Vancomycin Trough Cancelled 03/16/18 08:57 Random Vancomycin 22.5 ug/mL 03/16/18 08:57 Influenza Typ A,B (EIA) Negative for flu a/b (NEGATIVE) 03/14/18 17:23 Ur L.pneumophila Ag Negative (NEGATIVE) 03/14/18 Unknown Ur Strep pneumoniae Ag Not detected (Not Detected) 03/14/18 17:23 - Hospital Course Hospital Course: admitted with cva with ARF and PNA and he stayed sick and Discharge Exam - Head Exam Head Exam: ATRAUMATIC, NORMOCEPHALIC - Eye Exam Eye Exam: absent: EOMI, Normal appearance Pupil Exam: absent: NORMAL ACCOMODATION - ENT Exam ENT Exam: absent: Mucous Membranes Moist, Normal Exam, Normal Oropharynx, TM's Normal Bilaterally - Respiratory Exam Respiratory Exam: Rales, Rhonchi - Cardiovascular Exam Cardiovascular Exam: REGULAR RHYTHM, +S1 - GI/Abdominal Exam GI & Abdominal Exam: Hypoactive Bowel Sounds - Rectal Exam Rectal Exam: NORMAL INSPECTION - Neurological Exam Neurological exam: Abnormal Gait, Altered Discharge Plan - Follow Up Plan Condition: SERIOUS Disposition: HOME/ ROUTINE
== END 2018-03-19 22:56 | DRG 870 ==
LOC: C.ER 08:35 → C.9I 11:46 → C.3T 03-19 18:42
PROVIDERS: ADMIT Internal Medicine; ATTEND Internal Medicine
PROC: 5A1955Z Respiratory Ventilation, Greater than 96 Consecutive Hours (ICD-10-PCS; principal; 2018-03-14)
PROC: 0BH17EZ Insertion of Endotracheal Airway into Trachea, Via Natural or Artificial Opening (ICD-10-PCS; 2018-03-14)
PROC: 02HV33Z Insertion of Infusion Device into Superior Vena Cava, Percutaneous Approach (ICD-10-PCS; 2018-03-15)
DX: A41.9 Sepsis, unspecified organism (principal); I63.9 Cerebral infarction, unspecified; J96.01 Acute respiratory failure with hypoxia; J69.0 Pneumonitis due to inhalation of food and vomit; I21.4 Non-ST elevation (NSTEMI) myocardial infarction; I13.0 Hypertensive heart and chronic kidney disease with heart failure and stage 1 through stage 4 chronic kidney disease, or unspecified chronic kidney disease; N17.9 Acute kidney failure, unspecified; R65.20 Severe sepsis without septic shock; F20.9 Schizophrenia, unspecified; F32.9 Major depressive disorder, single episode, unspecified; F41.9 Anxiety disorder, unspecified; J44.9 Chronic obstructive pulmonary disease, unspecified; G40.901 Epilepsy, unspecified, not intractable, with status epilepticus; Z99.3 Dependence on wheelchair; Z87.891 Personal history of nicotine dependence